=== PATIENT | female | born 1960 | race Caucasian/White ===

== ENCOUNTER → 2017-01-29 | Outpatient (CLI) | payer OTHER ==
[~2017-01-29] MED LIST: LRT5 PO
== END ==
LOC: C.LAB 16:20
DX: Z02.83 Encounter for blood-alcohol and blood-drug test (principal)

== ENCOUNTER 2017-04-13 10:05 | Inpatient (IN) | payer OTHER ==
[~2017-04-13] VITALS: Ht 167.6 cm; Wt 59.7 kg
[2017-04-13] MEDS ORDERED: SODIUM CHLORIDE 0.9% 1000ML 1,000 ML IV STA (10:32)
[2017-04-13] MEDS ORDERED: WATER PILL PO (10:41)
--- NOTE | 2017-04-13 10:51 | DIAGNOSTIC IMAGING REPORT ---
CHEST ONE VIEW PORTABLE CLINICAL HISTORY: Weakness COMPARISON STUDY: 09/22/2007 FINDINGS: There is an old internally fixated left humeral fracture. There are internally fixated bilateral clavicular fractures. There are old left-sided rib fractures. There are multiple right-sided rib fractures which appear subacute. The heart is normal in size. There is no failure. There is no lobar consolidation. There are interstitial left basilar opacities. In the proper clinical setting this could represent a pneumonitis.[ No pneumothorax is visualized. IMPRESSION: 1. Left basilar interstitial opacities, possibly representing an interstitial pneumonitis. Clinical and radiographic follow-up is recommended 2. Subacute right-sided rib fractures. 3. Old left-sided rib fractures. 4. Postsurgical changes involving the clavicles and left humerus. Electronically signed by: Warren Bautista M.D. 04/13/2017 10:50 AM Dictated Date/Time: 04/13/2017 10:48 AM
[2017-04-13 11:42] LABS: PARTIAL THROMBOPLASTIN RATIO 1.1; PROTHROMBIN TIME (PATIENT) 11.2 SECONDS (9.0-12.0)
--- NOTE | 2017-04-13 11:44 | DIAGNOSTIC IMAGING REPORT ---
CT HEAD WITHOUT CONTRAST (CT) CLINICAL HISTORY: Weakness COMPARISON STUDY: No previous studies for comparison. TECHNIQUE: Axial CT of the brain is performed from the vertex to the skull base. IV contrast was not administered for this examination. A dose lowering technique was utilized adhering to the principles of ALARA. CT DOSE: 1074.96 mGy.cm FINDINGS: No intra or extra-axial mass lesions are visualized. There is no CT evidence of acute cortical infarction. There is no evidence of midline shift. There is no acute hemorrhage. No calvarial fractures are visualized. There are mild white matter hypodensities likely on a small vessel basis. There is no evidence of pathologic ventricular dilatation. There is no evidence of acute sinusitis IMPRESSION: No acute intracranial findings Electronically signed by: Warren Bautista M.D. 04/13/2017 11:43 AM Dictated Date/Time: 04/13/2017 11:43 AM
[2017-04-13 12:03] LABS: ALKALINE PHOSPHATASE 108 U/L (45-117); ALT/SGPT 19 U/L (12-78); AST/SGOT 36 U/L (15-37); BLOOD UREA NITROGEN 1 mg/dl (7-18); BUN/CREATININE RATIO 6.2 (10-20); CALCIUM 7.8 mg/dl (8.5-10.1); CARBON DIOXIDE 35 mmol/L (21-32); CHLORIDE 76 mmol/L (98-107); CKMB/CK RATIO 1.9 (0-3.0); CREATININE 0.22 mg/dl (0.60-1.20); GLUCOSE 80 mg/dl (70-99); MAGNESIUM 1.6 mg/dl (1.8-2.4); POTASSIUM 2.1 mmol/L (3.5-5.1); SODIUM 117 mmol/L (136-145)
[2017-04-13 12:25] LABS: HEMATOCRIT 27.3 % (37-47); MEAN CELL VOLUME 90.7 fL (80-100); MEAN CORPUSCULAR HEMOGLOBIN 34.2 pg (25-34); MEAN CORPUSCULAR HGB CONC 37.7 g/dl (32-36); RED BLOOD COUNT 3.01 M/uL (4.2-5.4); WHITE BLOOD COUNT 3.36 K/uL (4.8-10.8)
[2017-04-13 12:25] LABS: URINE APPEARANCE CLEAR (CLEAR); URINE BILIRUBIN NEG (NEG); URINE COLOR YELLOW; URINE EPITHELIAL CELL AUTO 20-30 /lpf (0-5); URINE NITRITE POS (NEG); URINE SPECIFIC GRAVITY 1.005 (1.000-1.030); UROBILINOGEN NEG (NEG)
[2017-04-13 12:26] LABS: MANUAL MICROSCOPIC REQUIRED? NO; REVIEW REQ? NO
[2017-04-13 12:26] LABS: PLATELET COUNT 104 K/uL (130-400)
[2017-04-13 12:27] LABS: BASO % 0.3 %; BASO ABS # 0.01 K/uL (0-0.2); COMPLETE YES; EOS % 0.3 %; IG% 0.6 %; LYMPH % 21.7 %; LYMPH ABS # 0.73 K/uL (1.2-3.4); MONO % 9.8 %; NEUT % 67.3 %; PLT ESTIMATE DECREASED
[2017-04-13] MEDS ORDERED: LEVAQUIN 750MG / 150ML D5W IV ONE (12:45)
[2017-04-13] MEDS ORDERED: POLYETHYLENE (MIRALAX) 17 GM PACK PO PRN (13:00)
[2017-04-13] MEDS ORDERED: ONDANSETRON INJ 2 MG/ML 2 ML VIAL IV PRN (13:00)
[2017-04-13] MEDS ORDERED: LORAZEPAM 0.5 MG TAB PO PRN (13:00)
[2017-04-13] MEDS ORDERED: ALUMINUM/MAGNESIUM/SIMETH (MAALOX MAX) 30 ML UDC PO PRN (13:00)
[2017-04-13] MEDS ORDERED: LORAZEPAM 2 MG/ML 1 ML VIAL IV PRN ×2 (13:00)
--- NOTE | 2017-04-13 13:26 | History and Physical ---
History & Physical Date & Time of Service: Apr 13, 2017 at 13:19 Chief Complaint: Abnormal Labs,Referrred Primary Care Physician: Darian Lopez D.O. History of Present Illness I was called to admit this patient to the hospital due to marked hyponatremia hypokalemia hypomagnesemia mildly elevated TSH possible left-sided pneumonitis and concurrent alcohol abuse The patient presented to the ER after having outpatient blood work and being called and told to report to the nearest hospital she cannot offer much more in the way of the exact details with a told her she is edentulous and slightly lethargic she drinks alcohol but cannot quantify directed mount she last had alcohol 1 day ago. The patient states she's not been eating regularly of late however she most recently fell while taking her daughter to school and after trying to get out of the car. The patient's company by her he cannot provide much in way of health history. The patient states that with her most recent fall she struck the front and back of her head her right arm and her back these areas are mildly tender with ecchymosis on her right anterior forehead right midshaft humerus and around C7-T1 of her back her abdomen is no evidence of bruising Past Medical/Surgical History Surgical Problems: (1) S/P section Status: Resolved Family History Cancer Diabetes mellitus Heart disease Hypertension Kidney disease Lung disease Patient has a family history of hypertension heart disease Social History Smoking Status: Current Every Day Smoker Smokeless Tobacco Use: No Alcohol Use: I suspect this is daily and having Drug Use: none Marital Status: Housing status: lives with family Allergies Coded Allergies: Penicillins (Unverified Allergy, Mild, rash, 04/13/17) Home Medications Scheduled [Water Pill], 1 TAB PO DAILY Review of Systems ROS: Thin cachectic weak and tired No double vision blurry vision No problems with speech or swallowing but is edentulous No palpitations, chest pain or pressure No Wheezing or breathing issues Epigastric and left upper quadrant abdominal pain dull not worsened or improved by food ordered drinking but worse by movement nausea vomiting diarrhea decreased appetite and weight loss No burning urine urine frequency or changes in color Patient has back pain right arm pain No skin rashes or oral lesions Bruising as mentioned in history of present illness Upper back pain but no numbness or loss of strength No changes in memory or confusion although details of her health history is sketchy Physical Exam Vital Signs Date Time Temp Pulse Resp B/P (MAP) Pulse Ox O2 Delivery O2 Flow Rate FiO2 04/13/17 13:00 87 82/45 93 Room Air 04/13/17 12:26 84 85/50 94 Room Air 04/13/17 12:10 94 04/13/17 12:08 88 86/41 96 Room Air 04/13/17 11:50 90 Room Air 04/13/17 10:21 36.5 93 18 92/63 94 Room Air General Appearance: + moderate distress, + thin Head: normocephalic, + evidence of trama Eyes: PERRL, EOMI, + pertinent finding (drainage from bilateral eyes which is purulent) ENT: hearing grossly normal, + pertinent finding (there is redness to her pharynx consistent with her smoking history) Neck: supple, no JVD Respiratory/Chest: chest non-tender, lungs clear, normal breath sounds Cardiovascular: regular rate, rhythm, no murmur Abdomen/GI: normal bowel sounds, soft, + tenderness (epigastrium and left upper quadrant) Back: no CVA tenderness, no muscle spasm, + pertinent finding (bruising around C7) Extremities/Musculoskelatal: no calf tenderness, normal capillary refill Neurologic/Psych: alert, oriented x 3 Diagnostics Laboratory Results Results Past 24 Hours Test 04/13/17 11:00 04/13/17 12:15 Range/Units White Blood Count 3.36 4.8-10.8 K/uL Red Blood Count 3.01 4.2-5.4 M/uL Hemoglobin 10.3 12.0-16.0 g/dL Hematocrit 27.3 37-47 % Mean Corpuscular Volume 90.7 80-100 fL Mean Corpuscular Hemoglobin 34.2 25-34 pg Mean Corpuscular Hemoglobin Concent 37.7 32-36 g/dl Platelet Count 104 130-400 K/uL Neutrophils (%) (Auto) 67.3 % Lymphocytes (%) (Auto) 21.7 % Monocytes (%) (Auto) 9.8 % Eosinophils (%) (Auto) 0.3 % Basophils (%) (Auto) 0.3 % Neutrophils # (Auto) 2.26 1.4-6.5 K/uL Lymphocytes # (Auto) 0.73 1.2-3.4 K/uL Monocytes # (Auto) 0.33 0.11-0.59 K/uL Eosinophils # (Auto) 0.01 0-0.5 K/uL Basophils # (Auto) 0.01 0-0.2 K/uL Immature Granulocyte % (Auto) 0.6 % Immature Granulocyte # (Auto) 0.02 0.00-0.02 K/uL Platelet Estimate DECREASED Red Blood Cell Morphology Unremarkable Prothrombin Time 11.2 9.0-12.0 SECONDS Prothromb Time International Ratio 1.0 0.9-1.1 Activated Partial Thromboplast Time 28.7 21.0-31.0 SECONDS Partial Thromboplastin Ratio 1.1 Sodium Level 117 136-145 mmol/L Potassium Level 2.1 3.5-5.1 mmol/L Chloride Level 76 98-107 mmol/L Carbon Dioxide Level 35 21-32 mmol/L Anion Gap 6.0 3-11 mmol/L Blood Urea Nitrogen 1 7-18 mg/dl Creatinine 0.22 0.60-1.20 mg/dl Est Creatinine Clear Calc Drug Dose 232.6 ml/min Estimated GFR () > 150.0 Estimated GFR (Non- 142.8 BUN/Creatinine Ratio 6.2 10-20 Random Glucose 80 70-99 mg/dl Calcium Level 7.8 8.5-10.1 mg/dl Magnesium Level 1.6 1.8-2.4 mg/dl Total Bilirubin 0.8 0.2-1 mg/dl Direct Bilirubin 0.3 0-0.2 mg/dl Aspartate Amino Transf (AST/SGOT) 36 15-37 U/L Alanine Aminotransferase (ALT/SGPT) 19 12-78 U/L Alkaline Phosphatase 108 45-117 U/L Ammonia < 10.0 11-32 umol/L Total Creatine Kinase 113 26-192 U/L Creatine Kinase MB 2.2 0.5-3.6 ng/ml Creatine Kinase MB Ratio 1.9 0-3.0 Troponin I < 0.015 0-0.045 ng/ml Total Protein 5.9 6.4-8.2 gm/dl Albumin 2.5 3.4-5.0 gm/dl Lipase 90 73-393 U/L Thyroid Stimulating Hormone (TSH) 5.430 0.300-4.500 uIu/ml Urine Color YELLOW Urine Appearance CLEAR CLEAR Urine pH 7.0 4.5-7.5 Urine Specific [place] 1.005 1.000-1.030 Urine Protein NEG NEG Urine Glucose (UA) NEG NEG Urine Ketones NEG NEG Urine Occult Blood NEG NEG Urine Nitrite POS NEG Urine Bilirubin NEG NEG Urine Urobilinogen NEG NEG Urine Leukocyte Esterase LARGE NEG Urine WBC (Auto) 5-10 0-5 /hpf Urine RBC (Auto) 0-4 0-4 /hpf Urine Hyaline Casts (Auto) 0 0-5 /lpf Urine Epithelial Cells (Auto) 20-30 0-5 /lpf Urine Bacteria (Auto) 2+ NEG Microbiology Results 04/13/17 Blood Culture, Received Pending 04/13/17 Blood Culture, Received Pending 04/13/17 Urine Culture, Received Pending Diagnostic Radiology TSH mildly elevated we'll check T4 marketed or joint abnormalities CT head unremarkable Chest x-ray also shows bilateral clavicle repair left humeral repair and old rib fractures pending x-ray of right humerus other (chest x-ray was concern for left-sided pneumonitis) Impression Assessment and Plan 56-year-old female with marked hyponatremia hypokalemia hypomagnesemia concern for alcohol abuse next For the hyponatremia she'll be on a fluid restriction will check urine has him and urine random sodium we'll place her normal saline with potassium infusion nephrology consultation for oversight in repleting her sodium Hypomagnesemia replete this intravenously and monitor daily With the pneumonitis concern for aspiration placement will be changed to clindamycin Bilateral conjunctivitis will use Genoptic Patient was offered the nicotine patch and counseled on tobacco cessation she refused both Right humeral bruise x-rays pending Unknown alcohol abuse when necessary Ativan is currently available if she develops more formal signs of withdrawal we'll institute our withdrawal protocol including Neurontin and scheduled benzodiazepines Abdominal pain could be gastritis she denies melena her hemoglobins 10 we'll institute Zantac DVT prevention will be Lovenox Advanced Directives Existing Advance Directive: No Existing Living Will: No VTE Prophylaxis VTE Risk Assessment Done? Y/N: Yes Risk Level: Moderate Social Service Consult Abuse/Neglect Concerns
[2017-04-13 14:01] VITALS: BP 86/47; PULSE 82; TEMP 36.9; O2SAT 94; Ht 167.6 cm; Wt 59.7 kg
[2017-04-13] MEDS: POTASSIUM CHLORIDE INJ 40 MEQ in SODIUM CHLORIDE 0.9% 1000ML 1,000 ML IV SCH (15:06)
[2017-04-13] MEDS: MAGNESIUM SULFATE 1GM / D5W 1 GM in PREMIXED IN D5W 100 ML IV SCH ×2 (15:06→18:14)
[2017-04-13] MEDS: POTASSIUM CHLORIDE 20 MEQ TABCR PO SCH ×2 (15:07→20:28)
[2017-04-13 15:36] VITALS: BP 82/49; PULSE 90; TEMP 36.8; O2SAT 93
--- NOTE | 2017-04-13 17:56 | EMERGENCY ROOM VISIT NOTE ---
History Report prepared by Miguel: Kelli Casey Under the Supervision of: Dr. Chace Frey M.D. First contact with patient: 10:26 Chief Complaint: REFERRED BY DOCTOR Stated Complaint: ABNORMAL LABS,REFERRRED History of Present Illness The patient is a 56 year old female who presents to the Emergency Room with complaints of a referral by her doctor prior to arrival. The patient reports having abnormal labs with her potassium levels. She states that she has not been feeling well for a year. The patient states that she has been unable to ambulate and get up due to weakness. She also reports having shortness of breath and that headaches. She states that she has been falling about once per day, and states that she sometimes hits her head. Pt denies LOC, fevers, chills , diaphoresis, visual changes, neck pain, chest pain, nausea, vomiting, abdominal pain, back pain, melena, hematochezia, urinary symptoms, numbness, lymphadenopathy, rash, or other complaints. She denies a history of a cholecystectomy and a hysterectomy, but states that she has had a section done before. Source of History: patient Onset: prior to arrival Position: other (global) Quality: other (referral) Associated Symptoms: + headache, + SOB, + weakness (unable to ambulate and get up ), No fevers Review of Systems See HPI for pertinent positives and negatives. A total of ten systems were reviewed and were otherwise negative. Past Medical & Surgical Medical Problems: (1) Hyponatremia Surgical Problems: (1) S/P section Family History Cancer Diabetes mellitus Heart disease Hypertension Kidney disease Lung disease Social History Smoking Status: Current Every Day Smoker Marital Status: in relationship Housing Status: lives with significant other Current/Historical Medications Scheduled [Water Pill], 1 TAB PO DAILY Allergies Coded Allergies: Penicillins (Unverified Allergy, Mild, rash, 04/13/17) Physical Exam Vital Signs Date Time Temp Pulse Resp B/P (MAP) Pulse Ox O2 Delivery O2 Flow Rate FiO2 04/13/17 12:26 84 85/50 94 Room Air 04/13/17 12:10 94 04/13/17 12:08 88 86/41 96 Room Air 04/13/17 11:50 90 Room Air 04/13/17 10:21 36.5 93 18 92/63 94 Room Air Physical Exam GENERAL: Awake, alert, tired-appearing, in no distress HENT: Normocephalic, atraumatic. Scattered bruises on left scalp. Oropharynx unremarkable. EYES: Normal conjunctiva. Sclera non-icteric. NECK: Supple. No nuchal rigidity. FROM. No JVD. RESPIRATORY: Scattered rhonchi. CARDIAC: Regular rate, normal rhythm. Extremities warm and well perfused. Pulses equal. ABDOMEN: Soft, non-distended. No tenderness to palpation. No rebound or guarding. No masses. RECTAL: Deferred. MUSCULOSKELETAL: Chest examination reveals no tenderness. The back is symmetrical on inspection without obvious abnormality. Bruising and abrasion noted over left scapula. There is no CVA tenderness to palpation. No joint edema. LOWER EXTREMITIES: Calves are equal size bilaterally and non-tender. 2+ lower leg edema with chronic venous discoloration. NEURO: Normal sensorium. No sensory or motor deficits noted. SKIN: No rash or jaundice noted. Medical Decision & Procedures ER Provider Diagnostic Interpretation: Radiology results as stated below per my review and radiologist interpretation: CHEST ONE VIEW PORTABLE CLINICAL HISTORY: Weakness COMPARISON STUDY: 09/22/2007 FINDINGS: There is an old internally fixated left humeral fracture. There are internally fixated bilateral clavicular fractures. There are old left-sided rib fractures. There are multiple right-sided rib fractures which appear subacute. The heart is normal in size. There is no failure. There is no lobar consolidation. There are interstitial left basilar opacities. In the proper clinical setting this could represent a pneumonitis.[ No pneumothorax is visualized. IMPRESSION: 1. Left basilar interstitial opacities, possibly representing an interstitial pneumonitis. Clinical and radiographic follow-up is recommended 2. Subacute right-sided rib fractures. 3. Old left-sided rib fractures. 4. Postsurgical changes involving the clavicles and left humerus. Electronically signed by: Warren Bautista M.D. 04/13/2017 10:50 AM Dictated Date/Time: 04/13/2017 10:[address] HEAD WITHOUT CONTRAST (CT) CLINICAL HISTORY: Weakness COMPARISON STUDY: No previous studies for comparison. TECHNIQUE: Axial CT of the brain is performed from the vertex to the skull base. IV contrast was not administered for this examination. A dose lowering technique was utilized adhering to the principles of ALARA. CT DOSE: 1074.96 mGy.cm FINDINGS: No intra or extra-axial mass lesions are visualized. There is no CT evidence of acute cortical infarction. There is no evidence of midline shift. There is no acute hemorrhage. No calvarial fractures are visualized. There are mild white matter hypodensities likely on a small vessel basis. There is no evidence of pathologic ventricular dilatation. There is no evidence of acute sinusitis IMPRESSION: No acute intracranial findings Electronically signed by: Warren Bautista M.D. 04/13/2017 11:43 AM Dictated Date/Time: 04/13/2017 11:43 AM Laboratory Results 04/13/17 11:00 Red Blood Count 3.01, Mean Corpuscular Volume 90.7, Mean Corpuscular Hemoglobin 34.2, Mean Corpuscular Hemoglobin Concent 37.7, Neutrophils (%) (Auto) 67.3, Lymphocytes (%) (Auto) 21.7, Monocytes (%) (Auto) 9.8, Eosinophils (%) (Auto) 0.3, Basophils (%) (Auto) 0.3, Neutrophils # (Auto) 2.26, Lymphocytes # (Auto) 0.73, Monocytes # (Auto) 0.33, Eosinophils # (Auto) 0.01, Basophils # (Auto) 0.01 04/13/17 11:00 Test 04/13/17 11:00 04/13/17 12:15 White Blood Count 3.36 K/uL (4.8-10.8) Red Blood Count 3.01 M/uL (4.2-5.4) Hemoglobin 10.3 g/dL (12.0-16.0) Hematocrit 27.3 % (37-47) Mean Corpuscular Volume 90.7 fL (80-100) Mean Corpuscular Hemoglobin 34.2 pg (25-34) Mean Corpuscular Hemoglobin Concent 37.7 g/dl (32-36) Platelet Count 104 K/uL (130-400) Neutrophils (%) (Auto) 67.3 % Lymphocytes (%) (Auto) 21.7 % Monocytes (%) (Auto) 9.8 % Eosinophils (%) (Auto) 0.3 % Basophils (%) (Auto) 0.3 % Neutrophils # (Auto) 2.26 K/uL (1.4-6.5) Lymphocytes # (Auto) 0.73 K/uL (1.2-3.4) Monocytes # (Auto) 0.33 K/uL (0.11-0.59) Eosinophils # (Auto) 0.01 K/uL (0-0.5) Basophils # (Auto) 0.01 K/uL (0-0.2) Immature Granulocyte % (Auto) 0.6 % Immature Granulocyte # (Auto) 0.02 K/uL (0.00-0.02) Platelet Estimate DECREASED Red Blood Cell Morphology Unremarkable Prothrombin Time 11.2 SECONDS (9.0-12.0) Prothromb Time International Ratio 1.0 (0.9-1.1) Activated Partial Thromboplast Time 28.7 SECONDS (21.0-31.0) Partial Thromboplastin Ratio 1.1 Anion Gap 6.0 mmol/L (3-11) Est Creatinine Clear Calc Drug Dose 232.6 ml/min Estimated GFR () > 150.0 Estimated GFR (Non- 142.8 BUN/Creatinine Ratio 6.2 (10-20) Calcium Level 7.8 mg/dl (8.5-10.1) Magnesium Level 1.6 mg/dl (1.8-2.4) Total Bilirubin 0.8 mg/dl (0.2-1) Direct Bilirubin 0.3 mg/dl (0-0.2) Aspartate Amino Transf (AST/SGOT) 36 U/L (15-37) Alanine Aminotransferase (ALT/SGPT) 19 U/L (12-78) Alkaline Phosphatase 108 U/L (45-117) Ammonia < 10.0 umol/L (11-32) Total Creatine Kinase 113 U/L (26-192) Creatine Kinase MB 2.2 ng/ml (0.5-3.6) Creatine Kinase MB Ratio 1.9 (0-3.0) Troponin I < 0.015 ng/ml (0-0.045) Total Protein 5.9 gm/dl (6.4-8.2) Albumin 2.5 gm/dl (3.4-5.0) Lipase 90 U/L (73-393) Thyroid Stimulating Hormone (TSH) 5.430 uIu/ml (0.300-4.500) Urine Color YELLOW Urine Appearance CLEAR (CLEAR) Urine pH 7.0 (4.5-7.5) Urine Specific [place] 1.005 (1.000-1.030) Urine Protein NEG (NEG) Urine Glucose (UA) NEG (NEG) Urine Ketones NEG (NEG) Urine Occult Blood NEG (NEG) Urine Nitrite POS (NEG) Urine Bilirubin NEG (NEG) Urine Urobilinogen NEG (NEG) Urine Leukocyte Esterase LARGE (NEG) Urine WBC (Auto) 5-10 /hpf (0-5) Urine RBC (Auto) 0-4 /hpf (0-4) Urine Hyaline Casts (Auto) 0 /lpf (0-5) Urine Epithelial Cells (Auto) 20-30 /lpf (0-5) Urine Bacteria (Auto) 2+ (NEG) Laboratory results reviewed by me Medications Administered Medications (Trade) Dose Ordered Sig/Kevin Route Start Time Stop Time Status Last Admin Dose Admin Sodium Chloride 1,000 ml @ 125 mls/hr Q8H STAT IV 04/13/17 10:32 04/13/17 18:31 04/13/17 10:32 125 MLS/HR Levofloxacin (Levaquin / D5W) 750 mg NOW ONCE IV 04/13/17 12:45 04/13/17 12:46 DC 04/13/17 13:05 750 MG ECG Indication: weakness Rate (beats per minute): 82 Rhythm: sinus rhythm Findings: Q waves (Anteriorseptal, inferior), other (poor baseline data) ED Course 1030: The patient was evaluated in room B3B. A complete history and physical exam was performed. 1032: Ordered Sodium Chloride 1,000 ml @ 125 mls/hr IV. 1209: Discussed the patient's case with Dr. Coe. The patient will be evaluated for further treatment and disposition. 1230: I updated the patient on her results and broken ribs. 1245: Ordered Levofloxacin 750 mg IV. 1300: Upon reexamination, the patient was resting. I discussed the test results and treatment plan with her. The patient will be evaluated for further management. Medical Decision Triage Nursing notes reviewed. The patient's presentation and history were concerning for weakness, falls, and possible electrolyte abnormalities. Etiologies such as metabolic, infection, hypo/hyperglycemia, electrolyte abnormalities, cardiac sources, intracerebral event, toxicologic, neurologic, as well as others were entertained. The patient was evaluated. The abdomen were obtained. Imaging was ordered. The patient was found to have significant hyponatremia. Gentle fluid hydration was done. The patient had old appearing rib fractures and subacute fractures on chest x-ray with mild pneumonitis. She does have a cough. Urinalysis was concerning for infection. The patient was given IV Levaquin. Head CT did not reveal any acute findings. The patient will need further management in the hospital. Consultation is made with internal medicine. The patient was evaluated in the Emergency Room for further treatment. Medication Reconcilliation Current Medication List: was personally reviewed by me Blood Pressure Screening Patient's blood pressure: Low blood pressure Consults Time Called: 1209 Consulting Physician: Dr. [place] Returned Call: 1209 Discussed the patient's case. The patient will be evaluated for further treatment and disposition. Impression Primary Impression: Hypernatremia Additional Impressions: UTI (urinary tract infection) Pneumonitis Rib fracture Scribe Attestation The scribe's documentation has been prepared under my direction and personally reviewed by me in its entirety. I confirm that the note above accurately reflects all work, treatment, procedures, and medical decision making performed by me. Departure Information Dispostion Being Evaluated By Hospitalist Referrals No Doctor, Assigned (PCP) Patient Instructions My [facility] Health Problem Qualifiers
[2017-04-13] MEDS: CLINDAMYCIN HCL 150 MG CAP PO SCH (18:16)
[2017-04-13] MEDS: ACETAMINOPHEN 325 MG TAB PO PRN (18:19)
--- NOTE | 2017-04-13 18:25 | DIAGNOSTIC IMAGING REPORT ---
RIGHT HUMERUS 2 VIEWS HISTORY: Right arm pain after fall COMPARISON: None. FINDINGS: There is no acute fracture or dislocation. Soft tissues are unremarkable. Prior internal fixation of a right clavicle fracture with a cortical plate and screws. The bones are osteopenic. There is a healing fracture of the distal right clavicle. Deformity of the right lateral mid to lower ribs favor healing/healed fractures. IMPRESSION: 1. No acute fracture or dislocation within the right humerus. 2. Healing distal right clavicle fracture. 3. Healing/healed right mid to lower rib fractures. Electronically signed by: Gerald Cee M.D. 04/13/2017 6:24 PM Dictated Date/Time: 04/13/2017 6:21 PM
[2017-04-13 19:39] VITALS: BP 84/51; PULSE 77; TEMP 36.7; O2SAT 92
[2017-04-13] MEDS ORDERED: COUGH DROP (SUGAR FREE) LOZ 24 LOZ/1 BOX ONE (19:50)
[2017-04-13] MEDS: GENTAMICIN SULFATE 0.3% OP SOLN 5 ML BTL OP SCH (20:28)
[2017-04-13] MEDS: ENOXAPARIN 40 MG/0.4 ML SYR SC SCH (20:29)
[2017-04-13] MEDS: RANITIDINE HCL 150 MG TAB PO SCH (20:29)
[2017-04-13] MEDS ORDERED: PNEUMOCOCCAL ADMINISTRATION CHARGE ONE (20:45)
[2017-04-13] MEDS ORDERED: PNEUMOCOCCAL POLYSACCHARIDES 25 MCG/0.5 ML VIAL/SYR IM. ONE (20:45)
[2017-04-13 23:48] VITALS: BP 90/51; PULSE 75; TEMP 36.8; O2SAT 96
[2017-04-14] VITALS (8 sets, daily range): BP systolic 78–94; BP diastolic 38–62; PULSE 73–86; TEMP 36.5–37; O2SAT 94–100
[2017-04-14] MEDS: CLINDAMYCIN HCL 150 MG CAP PO SCH ×5 (00:20→23:40)
[2017-04-14] MEDS: POTASSIUM CHLORIDE INJ 40 MEQ in SODIUM CHLORIDE 0.9% 1000ML 1,000 ML IV SCH (00:21)
[2017-04-14 07:31] LABS: HEMATOCRIT 24.1 % (37-47); MEAN CELL VOLUME 94.5 fL (80-100); MEAN CORPUSCULAR HEMOGLOBIN 34.9 pg (25-34); MEAN CORPUSCULAR HGB CONC 36.9 g/dl (32-36); RED BLOOD COUNT 2.55 M/uL (4.2-5.4); WHITE BLOOD COUNT 1.77 K/uL (4.8-10.8)
[2017-04-14] MEDS: POTASSIUM CHLORIDE 20 MEQ TABCR PO SCH (07:35)
[2017-04-14] MEDS: RANITIDINE HCL 150 MG TAB PO SCH ×2 (07:39→20:32)
[2017-04-14] MEDS: GENTAMICIN SULFATE 0.3% OP SOLN 5 ML BTL OP SCH ×3 (07:39→20:33)
[2017-04-14 07:55] LABS: MEAN PLATELET VOLUME 9.7 fL (7.4-10.4); PLATELET COUNT 92 K/uL (130-400)
[2017-04-14 07:56] LABS: PLT ESTIMATE DECREASED
[2017-04-14 07:59] LABS: BLOOD UREA NITROGEN 1 mg/dl (7-18); BUN/CREATININE RATIO 4.5 (10-20); CALCIUM 7.8 mg/dl (8.5-10.1); CARBON DIOXIDE 32 mmol/L (21-32); CHLORIDE 90 mmol/L (98-107); CREATININE 0.24 mg/dl (0.60-1.20); GLUCOSE 79 mg/dl (70-99); MAGNESIUM 2.1 mg/dl (1.8-2.4); POTASSIUM 2.7 mmol/L (3.5-5.1); SODIUM 128 mmol/L (136-145)
[2017-04-14] MEDS ORDERED: POTASSIUM CHLORIDE INJ 40 MEQ in SODIUM CHLORIDE 0.9% 1000ML 1,000 ML IV SCH (09:00)
[2017-04-14] MEDS ORDERED: POTASSIUM CHLORIDE 20 MEQ TABCR PO ONE (09:15)
[2017-04-14] MEDS: CEFTRIAXONE SOD INJ 1 GM in DEXTROSE 5% ADD-VANTAGE 50ML 50 ML IV SCH (09:57)
[2017-04-14] MEDS: MULTIVITAMIN TAB PO SCH (09:58)
[2017-04-14] MEDS: THIAMINE HCL 100 MG TAB PO SCH (09:58)
[2017-04-14] MEDS ORDERED: POTASSIUM CHLORIDE 20 MEQ TABCR PO STA ×2 (10:10→15:06)
[2017-04-14 11:15] LABS: BLOOD UREA NITROGEN 1 mg/dl (7-18); BUN/CREATININE RATIO 4.3 (10-20); CALCIUM 7.7 mg/dl (8.5-10.1); CARBON DIOXIDE 33 mmol/L (21-32); CHLORIDE 92 mmol/L (98-107); CREATININE 0.29 mg/dl (0.60-1.20); GLUCOSE 88 mg/dl (70-99); SODIUM 129 mmol/L (136-145)
[2017-04-14] MEDS ORDERED: POTASSIUM CHLORIDE INJ 40 MEQ in SODIUM CHLORIDE 0.45% 1000ML 1,000 ML IV SCH (11:30)
--- NOTE | 2017-04-14 12:10 | Nephrology Consultation ---
Nephrology Consultation Date & Providers Date of Consultation: Apr 14, 2017. Primary Care Provider: Darian Lopez D.O. Referring Provider: Reason for Consultation Evaluation and management for the hypokalemia and hyponatremia. History of Present Illness Lydia is a 56-year-old female admitted to the hospital with electrolyte abnormality. Nephrologic consult was requested to manage hyponatremia and hypokalemia. Electronic medical records are reviewed in detail during patient' s visit. Patient is a poor historian and most of the information was gathered from electronic medical record review. Lydia was admitted to the hospital as she was recommended by her primary care physician go come to the nearest emergency room due to electrolyte abnormality from routine lab. On admission her serum sodium was 117 and potassium was 2.1. Urine osmolality was low at 127. Magnesium was low, which improved after replacement. Renal function was normal. She was hypotensive. She reports being sick for last couple of weeks, appetite has been poor and overall not feeling well. She had multiple fall at home. On admission she was found to have old rib fracture. CT head was negative for any intra-abdominal pathology. She was continued on IV normal saline with potassium supplement and her serum sodium increased to 128 this morning and potassium was 2.8. Urinalysis was positive for urinary tract infection and started on ceftriaxone IV. Currently she continues to feel poorly, no specific symptoms, however feels overall better than how she has been last few weeks. She still seems to have some slurring of speech but no cognitive impairment or confusion. Detail information about her past medical history is not available however the does not seemed to have history of hypertension or diabetes. Her TSH in the hospital was normal. There was report of being on diuretics at home however detailed information about the class of medication or dose was not available. No report of NSAIDs, SSRI use. Allergies Coded Allergies: Penicillins (Unverified Allergy, Mild, rash, 04/13/17) Inpatient Medications Current Inpatient Medications Medications (Trade) Dose Ordered Sig/Kevin Route Start Time Stop Time Status Last Admin Dose Admin Enoxaparin Sodium (Lovenox Inj) 40 mg Q24H SC 04/13/17 21:00 05/13/17 20:59 04/13/17 20:29 40 MG Acetaminophen (Tylenol Tab) 650 mg Q4H PRN PO 04/13/17 13:00 05/13/17 12:59 04/13/17 18:19 650 MG Al Hydrox/Mg Hydrox/Simethicone (Maalox Max Susp) 15 ml Q4H PRN PO 04/13/17 13:00 05/13/17 12:59 Ondansetron HCl (Zofran Inj) 4 mg Q6H PRN IV 04/13/17 13:00 05/13/17 12:59 Polyethylene (Miralax Powder Packet) 17 gm DAILY PRN PO 04/13/17 13:00 05/13/17 12:59 Lorazepam (Ativan Inj) 1 mg Q4H PRN IV 04/13/17 13:00 05/13/17 12:59 Lorazepam (Ativan Inj) 0.5 mg Q4H PRN IV 04/13/17 13:00 05/13/17 12:59 Lorazepam (Ativan Tab) 0.5 mg Q6 PRN PO 04/13/17 13:00 05/13/17 12:59 Clindamycin HCl (Cleocin Cap) 150 mg Q6 PO 04/13/17 18:00 04/20/17 17:59 04/14/17 06:00 150 MG Ranitidine HCl (zANTac TAB) 150 mg BID PO 04/13/17 21:00 05/13/17 20:59 04/14/17 07:39 150 MG Gentamicin Sulfate (Gentamicin 0.3% Oph Soln) 2 drops TID OP 04/13/17 21:00 04/16/17 20:59 04/14/17 07:39 2 DROPS Ceftriaxone Sodium 1 gm/ Dextrose 50 ml @ 100 mls/hr Q24H IV 04/14/17 09:00 04/19/17 08:59 04/14/17 09:57 100 MLS/HR Folic Acid (Folvite Tab) 1 mg QAM PO 04/14/17 09:00 05/14/17 08:59 04/14/17 09:59 1 MG Thiamine HCl (Vitamin B-1 Tab) 100 mg QAM PO 04/14/17 09:00 05/14/17 08:59 04/14/17 09:58 100 MG Multivitamins (Multivitamin Tab) 1 tab QAM PO 04/14/17 09:00 05/14/17 08:59 11/20/17 09:58 1 TAB Potassium Chloride 40 meq/ Sodium Chloride 1,020 ml @ 50 mls/hr [id number] IV 04/14/17 11:30 05/14/17 11:29 Family History Cancer Diabetes mellitus Heart disease Hypertension Kidney disease Lung disease Social History Smoking Status: Current Every Day Smoker Smokeless Tobacco Use: No Alcohol Use: I suspect this is daily and having Drug Use: none Marital Status: in relationship Housing Status: lives with family Review of Systems A complete review of systems was performed. Pertinent positives are noted above. All other systems are negative. Physical Exam Date Time Temp Pulse Resp B/P (MAP) Pulse Ox O2 Delivery O2 Flow Rate FiO2 04/14/17 11:48 36.7 77 20 89/59 (69) 94 2.0 04/14/17 08:07 36.8 73 18 78/38 (51) 95 2.0 89/58 (68) 04/14/17 04:00 Room Air 04/14/17 03:30 37.0 77 19 88/47 (61) 94 Nasal Cannula 2.0 04/14/17 00:01 Room Air 04/13/17 23:48 36.8 75 18 90/51 (64) 96 Room Air 04/13/17 20:00 Room Air 04/13/17 19:39 36.7 77 20 84/51 (62) 92 Room Air 04/13/17 15:36 36.8 90 22 82/49 (60) 93 Room Air 04/13/17 14:01 36.9 82 18 86/47 94 Room Air 04/13/17 13:49 102 80/43 93 04/13/17 13:00 87 82/45 93 Room Air 04/13/17 12:26 84 85/50 94 Room Air 04/13/17 12:10 94 04/13/17 12:08 88 86/41 96 Room Air 04/13/17 11:50 90 Room Air GENERAL: Middle-aged female, AAA x 3, ill -appearing, seems to be in mild distress HEENT: Atraumatic, normocephalic. NECK: Supple, no JVD, no carotid bruit appreciated. ENT: No sinus tenderness MOUTH and THROAT: Moist oral mucosa, no oral ulcer or pharyngeal erythema RESPIRATORY: Normal breathing efforts, no accessory muscle use, clear to auscultation bilaterally, no wheezes or rales. CARDIOVASCULAR: S1, S2 normal, rate rhythm regular. ABDOMEN: Soft, nontender, positive bowel sound. MUSCULOSKELETAL: No CVA tenderness. No joint swelling, erythema or tenderness. Normal range of motion. SKIN: No skin rash EXTREMITY: No lower extremity edema NEURO: No gross focal neurological deficit PSYCHIATRY: Normal mood and judgment Laboratory Results Last 24 Hours Test 04/13/17 12:15 04/13/17 21:05 04/14/17 07:02 04/14/17 10:38 Urine Color YELLOW Urine Appearance CLEAR Urine pH 7.0 Urine Specific [place] 1.005 Urine Protein NEG Urine Glucose (UA) NEG Urine Ketones NEG Urine Occult Blood NEG Urine Nitrite POS Urine Bilirubin NEG Urine Urobilinogen NEG Urine Leukocyte Esterase LARGE Urine WBC (Auto) 5-10 /hpf Urine RBC (Auto) 0-4 /hpf Urine Hyaline Casts (Auto) 0 /lpf Urine Epithelial Cells (Auto) 20-30 /lpf Urine Bacteria (Auto) 2+ Urine Osmolality 127 mOms/kg Urine Random Sodium 11 mEq/L White Blood Count 1.77 K/uL Red Blood Count 2.55 M/uL Hemoglobin 8.9 g/dL Hematocrit 24.1 % Mean Corpuscular Volume 94.5 fL Mean Corpuscular Hemoglobin 34.9 pg Mean Corpuscular Hemoglobin Concent 36.9 g/dl RDW Standard Deviation 43.9 fL RDW Coefficient of Variation 12.7 % Platelet Count 92 K/uL Mean Platelet Volume 9.7 fL Platelet Estimate DECREASED Sodium Level 128 mmol/L 129 mmol/L Potassium Level 2.7 mmol/L 3.0 mmol/L Chloride Level 90 mmol/L 92 mmol/L Carbon Dioxide Level 32 mmol/L 33 mmol/L Anion Gap 6.0 mmol/L 4.0 mmol/L Blood Urea Nitrogen 1 mg/dl 1 mg/dl Creatinine 0.24 mg/dl 0.29 mg/dl Est Creatinine Clear Calc Drug Dose 226.6 ml/min 187.5 ml/min Estimated GFR () > 150.0 > 150.0 Estimated GFR (Non- 138.7 130.4 BUN/Creatinine Ratio 4.5 4.3 Random Glucose 79 mg/dl 88 mg/dl Calcium Level 7.8 mg/dl 7.7 mg/dl Magnesium Level 2.1 mg/dl Free Thyroxine 1.10 ng/dl Test 04/14/17 11:45 Impression (1) Hypokalemia (2) Hypomagnesemia (3) Hypotension (4) Hyponatremia (5) Rib fracture (6) Anemia (7) UTI (urinary tract infection) 56-year-old female with significant electrolyte abnormality including hyponatremia, hypomagnesemia and hypokalemia in the setting of overall not feeling well, poor p.o. intake for few weeks, recurrent fall at home and questionable history use of diuretics at home. No history of hypertension, diabetes or chronic kidney disease. On admission serum sodium was 117, potassium was 2.1 and magnesium was 1.6, started on IV normal saline, received potassium and magnesium supplement. Sodium improved to 129 this morning, potassium 3.0, magnesium normalized. Unclear etiology for this significant electrolyte abnormality, could be combination volume depletion, poor p.o. intake, hypotension, pain with fall and rib fracture as well as diuretics use. Recommendations --Goal for serum sodium but this afternoon should be less than 125 --as serum sodium already 129, change fluid to half normal saline --repeat serum sodium in 2 and urine osmolality in hours and if serum sodium continues to go up may need to start on D5W --goal for serum sodium in next 24 hours less than 131 --focus on correcting potassium --encourage p.o. intake, discontinue fluid restriction, encourage high-protein diet --avoid thiazide diuretics, NSAIDs --monitor serum sodium Q 8 hours --iron study, B12, folic acid Thank you for allowing me to participate in your patient's care. It was a pleasure to see Lydia
--- NOTE | 2017-04-14 12:50 | Medical Student: [facility] ---
Med Student Progress Note Date of Service Apr 14, 2017. Subjective Pt evaluation today including: conversation w/ patient, physical exam, chart review, lab review, review of studies, review of inpatient medication list Voiding: no voiding problems 56 year old female with weakness, fatigue and falls with abnormal outpatient labs. She is found to be hyponatremic, hypokalemic, and hypomagnesium. Replacement therapy and fluid restriction have been started with improvement of labs. Sodium has risen from 117 to 129 in 24 hours. The abnormalities seem to be stemming from excessive water intake over the last year accompanied by malnutrition and alcohol use. She reports drinking 3 beers twice a week. She was also found to have a UTI on U/A. Review of Systems Constitutional: + fever (frequent fevers), + weight loss (160 lbs in the last year.), + weakness, + fatigue Respiratory: + shortness of breath, No cough Cardiac: No chest pain Abdomen: No pain, No nausea, No vomiting Female : No dysuria Neurologic: + weakness, + balance problems, No memory loss, No paralysis, No numbness/tingling Objective Vital Signs Date Time Temp Pulse Resp B/P (MAP) Pulse Ox O2 Delivery O2 Flow Rate FiO2 04/14/17 11:48 36.7 77 20 89/59 (69) 94 2.0 04/14/17 08:07 36.8 73 18 78/38 (51) 95 2.0 89/58 (68) 04/14/17 04:00 Room Air 04/14/17 03:30 37.0 77 19 88/47 (61) 94 Nasal Cannula 2.0 04/14/17 00:01 Room Air 04/13/17 23:48 36.8 75 18 90/51 (64) 96 Room Air 04/13/17 20:00 Room Air 04/13/17 19:39 36.7 77 20 84/51 (62) 92 Room Air 04/13/17 15:36 36.8 90 22 82/49 (60) 93 Room Air 04/13/17 14:01 36.9 82 18 86/47 94 Room Air 04/13/17 13:49 102 80/43 93 04/13/17 13:00 87 82/45 93 Room Air 04/13/17 12:26 84 85/50 94 Room Air Physical Exam General Appearance: no apparent distress, + cachetic, + thin Eyes: bilateral eyes normal inspection ENT: normal ENT inspection Neck: supple, no adenopathy Respiratory/Chest: chest non-tender, lungs clear, normal breath sounds, no respiratory distress, no accessory muscle use Cardiovascular: regular rate, rhythm, no edema, no murmur Abdomen: normal bowel sounds, non tender, soft, no organomegaly Extremities: normal range of motion, non-tender, normal inspection, no pedal edema, no calf tenderness Neurologic/Psychiatric: car porter II-XII nml as tested, alert, oriented x 3, + motor weakness (globally), + depressed affect Skin: normal color, warm/dry Laboratory Results Last 24 Hours Test 04/13/17 21:05 04/14/17 07:02 04/14/17 10:38 04/14/17 11:45 Urine Osmolality 127 mOms/kg Urine Random Sodium 11 mEq/L White Blood Count 1.77 K/uL Red Blood Count 2.55 M/uL Hemoglobin 8.9 g/dL Hematocrit 24.1 % Mean Corpuscular Volume 94.5 fL Mean Corpuscular Hemoglobin 34.9 pg Mean Corpuscular Hemoglobin Concent 36.9 g/dl RDW Standard Deviation 43.9 fL RDW Coefficient of Variation 12.7 % Platelet Count 92 K/uL Mean Platelet Volume 9.7 fL Platelet Estimate DECREASED Sodium Level 128 mmol/L 129 mmol/L Potassium Level 2.7 mmol/L 3.0 mmol/L Chloride Level 90 mmol/L 92 mmol/L Carbon Dioxide Level 32 mmol/L 33 mmol/L Anion Gap 6.0 mmol/L 4.0 mmol/L Blood Urea Nitrogen 1 mg/dl 1 mg/dl Creatinine 0.24 mg/dl 0.29 mg/dl Est Creatinine Clear Calc Drug Dose 226.6 ml/min 187.5 ml/min Estimated GFR () > 150.0 > 150.0 Estimated GFR (Non- 138.7 130.4 BUN/Creatinine Ratio 4.5 4.3 Random Glucose 79 mg/dl 88 mg/dl Calcium Level 7.8 mg/dl 7.7 mg/dl Magnesium Level 2.1 mg/dl Free Thyroxine 1.10 ng/dl Transferrin % Saturation % Test 04/14/17 12:06 Medications Current Inpatient Medications Medications (Trade) Dose Ordered Sig/Kevin Route Start Time Stop Time Status Last Admin Dose Admin Enoxaparin Sodium (Lovenox Inj) 40 mg Q24H SC 04/13/17 21:00 05/13/17 20:59 04/13/17 20:29 40 MG Acetaminophen (Tylenol Tab) 650 mg Q4H PRN PO 04/13/17 13:00 05/13/17 12:59 04/13/17 18:19 650 MG Al Hydrox/Mg Hydrox/Simethicone (Maalox Max Susp) 15 ml Q4H PRN PO 04/13/17 13:00 05/13/17 12:59 Ondansetron HCl (Zofran Inj) 4 mg Q6H PRN IV 04/13/17 13:00 05/13/17 12:59 Polyethylene (Miralax Powder Packet) 17 gm DAILY PRN PO 04/13/17 13:00 05/13/17 12:59 Lorazepam (Ativan Inj) 1 mg Q4H PRN IV 04/13/17 13:00 05/13/17 12:59 Lorazepam (Ativan Inj) 0.5 mg Q4H PRN IV 04/13/17 13:00 05/13/17 12:59 Lorazepam (Ativan Tab) 0.5 mg Q6 PRN PO 04/13/17 13:00 05/13/17 12:59 Clindamycin HCl (Cleocin Cap) 150 mg Q6 PO 04/13/17 18:00 04/20/17 17:59 04/14/17 12:01 150 MG Ranitidine HCl (zANTac TAB) 150 mg BID PO 04/13/17 21:00 05/13/17 20:59 04/14/17 07:39 150 MG Gentamicin Sulfate (Gentamicin 0.3% Oph Soln) 2 drops TID OP 04/13/17 21:00 04/16/17 20:59 04/14/17 07:39 2 DROPS Ceftriaxone Sodium 1 gm/ Dextrose 50 ml @ 100 mls/hr Q24H IV 04/14/17 09:00 04/19/17 08:59 04/14/17 09:57 100 MLS/HR Folic Acid (Folvite Tab) 1 mg QAM PO 04/14/17 09:00 05/14/17 08:59 04/14/17 09:59 1 MG Thiamine HCl (Vitamin B-1 Tab) 100 mg QAM PO 04/14/17 09:00 05/14/17 08:59 04/14/17 09:58 100 MG Multivitamins (Multivitamin Tab) 1 tab QAM PO 04/14/17 09:00 05/14/17 08:59 04/14/17 09:58 1 TAB Potassium Chloride 40 meq/ Sodium Chloride 1,020 ml @ 50 mls/hr [id number] IV 04/14/17 11:30 05/14/17 11:29 04/14/17 11:59 50 MLS/HR Assessment and Plan Assessment and Plan: Problem List: Hyponatremia Hypokalemia Hypomagnesium Malnutrition UTI Rib fractures Alcohol misuse Hypotension Assessment: 56 year old female appearing older than her stated age presenting with weakness and falls over the last year and abnormal labs outpatient. She has had a weight loss of over 150 lbs in the last year due to malnutrition. She claims she does not desire food. She attempts to replace her hunger by drinking large amounts of water, over 1 gallon per day. Found to have UTI on U/A. Plan: 1. Weakness: likely due to elcetrolye abnormalities. Weakness is still present, and she does not feel as though she is ablt to walk. Will consult PT. Should improve with electrolyte repletion. 2. Hyponatremia: sodium has risen to 12 mEq in 24 hours which puts her at risk for central pontine myelenosis. Will switch to 1/2 normal saline. Goal should be 4-6 mEq increase per 24 hours. Cause of hyponatremia likely due to excessive water consumption supported by U/A findings of low urine osmolality with normal urine sodium. Monitor BMP q4hrs 3. Hypokalemia: improving with repletion from 2.1 to 3 mEq. Continue to replete until in normal range. Be cautious of refeeding syndrome when she begins to eat again. 4. Hypomagnesium: improving with repletion. 5. Malnutrition: given multivitamins. Consult homebirth midwife and psychiatry. 6. Hypotension: likely due to low sodium, should improve with correction. Likely factoring in to symptoms of weakness, dizziness, and headaches. 7. Subacute/chronic fractures: likely from falls related to symptoms, but domestic abuse should be considered. 8. Tobacco use: christian counselor on tobacco cessation. 9. Alcohol misuse: Monitor for withdraw symptoms. [employer] on cessation. 10. UTI: seen on U/A, given clindamycin PO, and ceftriaxone IV. Disposition: Continue slow correction of sodium. With monitoring for signs of cerebral injury from overcorrection. Begin nutritional repletion, but look for signs of refeeding syndrome. Monitor for alcohol withdraw signs. Patient will be discharged home following appropriate correction of electrolyte abnormalities and improvement in weakness. Continued [facility] stay due to: ambulation difficulties, multiple IV medications needed (Electrolye abnormalities), other Discharge planning: home
[2017-04-14 12:51] LABS: BUN/CREATININE RATIO 4.7 (10-20); CREATININE 0.3 mg/dl (0.60-1.20); MAGNESIUM 2.2 mg/dl (1.8-2.4); POTASSIUM 3.3 mmol/L (3.5-5.1)
[2017-04-14 12:55] LABS: FERRITIN 234.7 ng/ml (8.0-388.0)
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
[2017-04-14] MEDS ORDERED: HYDR25TA4 PO (16:15)
[2017-04-14] MEDS: ENOXAPARIN 40 MG/0.4 ML SYR SC SCH (20:33)
[2017-04-14 21:40] LABS: BUN/CREATININE RATIO 6.5 (10-20); CALCIUM 7.5 mg/dl (8.5-10.1); CREATININE 0.58 mg/dl (0.60-1.20); POTASSIUM 4.2 mmol/L (3.5-5.1)
[2017-04-15] VITALS (8 sets, daily range): BP systolic 88–106; BP diastolic 49–68; PULSE 75–96; TEMP 36.8–37.1; O2SAT 94–99
[2017-04-15 05:58] LABS: HEMATOCRIT 25.1 % (37-47); MEAN CELL VOLUME 98.4 fL (80-100); MEAN CORPUSCULAR HEMOGLOBIN 34.5 pg (25-34); MEAN CORPUSCULAR HGB CONC 35.1 g/dl (32-36); MEAN PLATELET VOLUME 8.8 fL (7.4-10.4); PLATELET COUNT 108 K/uL (130-400); RED BLOOD COUNT 2.55 M/uL (4.2-5.4)
[2017-04-15 06:24] LABS: BLOOD UREA NITROGEN 2 mg/dl (7-18); BUN/CREATININE RATIO 6.9 (10-20); CALCIUM 7.7 mg/dl (8.5-10.1); CARBON DIOXIDE 27 mmol/L (21-32); CHLORIDE 97 mmol/L (98-107); CREATININE 0.29 mg/dl (0.60-1.20); GLUCOSE 86 mg/dl (70-99); POTASSIUM 4.2 mmol/L (3.5-5.1); SODIUM 129 mmol/L (136-145)
[2017-04-15] MEDS ORDERED: POTASSIUM CHLORIDE INJ 40 MEQ in SODIUM CHLORIDE 0.45% 1000ML 1,000 ML IV SCH (06:30)
[2017-04-15 06:46] LABS: BASO % 0.3 %; BASO ABS # 0.01 K/uL (0-0.2); COMPLETE YES; LARGE PLATELETS 1+; LYMPH % 50.7 %; LYMPH ABS # 1.52 K/uL (1.2-3.4); MONO % 10.3 %; NEUT % 37.7 %
[2017-04-15] MEDS: CLINDAMYCIN HCL 150 MG CAP PO SCH ×4 (06:54→23:49)
[2017-04-15] MEDS ORDERED: COSYNTROPIN IV ONE (08:00)
[2017-04-15] MEDS: BOOST VANILLA PO SCH ×6 (08:00→21:23)
[2017-04-15] MEDS ORDERED: COSYNTROPIN INJ 1 MCG in SYRINGE 0 ML IV SCH (08:00)
[2017-04-15] MEDS: MULTIVITAMIN TAB PO SCH (08:23)
[2017-04-15] MEDS: THIAMINE HCL 100 MG TAB PO SCH (08:23)
[2017-04-15] MEDS: RANITIDINE HCL 150 MG TAB PO SCH ×2 (08:23→21:21)
[2017-04-15] MEDS: CEFTRIAXONE SOD INJ 1 GM in DEXTROSE 5% ADD-VANTAGE 50ML 50 ML IV SCH (08:24)
[2017-04-15] MEDS: GENTAMICIN SULFATE 0.3% OP SOLN 5 ML BTL OP SCH ×3 (08:24→21:20)
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
[2017-04-15] MEDS: CEPHALEXIN MONOHYDRATE 500 MG CAP PO SCH ×2 (09:44→21:20)
--- NOTE | 2017-04-15 10:26 | Nephrology Progress Note ---
Nephrology Progress Note Date of Service Apr 15, 2017. Chief Complaint F/U for the hypokalemia and hyponatremia. Ashley Freeman was seen and examined in her room this morning. She denies any shortness of breath chest, chest pain, difficulty in speech, headache or confusion. Has been persistently hypotensive but remained asymptomatic. Serum sodium has been stable at 129 to 130. Potassium normalized. Review of Systems A complete review of systems was performed. Pertinent positives are noted above. All other systems are negative. Vital Signs Last 8 Hrs Date Time Temp Pulse Resp B/P (MAP) Pulse Ox O2 Delivery O2 Flow Rate FiO2 04/15/17 08:00 Room Air 04/15/17 07:53 36.8 80 16 88/56 (67) 94 Room Air 04/15/17 07:28 88 96/62 (73) 04/15/17 05:05 37.1 83 18 95/55 (68) 95 Room Air 04/15/17 04:00 Room Air Last Recorded Weight Weight (Kilograms): 57.700 Physical Exam GENERAL: Middle-aged female , AAA x 3, ill-appearing, not in any distress. NECK: Supple, no JVD. RESPIRATORY: Normal breathing efforts, no accessory muscle use, clear to auscultation bilaterally, no wheezes or rales. CARDIOVASCULAR: S1, S2 normal, rate rhythm regular. EXTREMITY: No lower extremity edema NEURO: speech fluent. PSYCHIATRY: Normal mood and judgment Family History Cancer Diabetes mellitus Heart disease Hypertension Kidney disease Lung disease Social History Smokeless Tobacco Use: No Alcohol Use: I suspect this is daily and having Drug Use: none Marital Status: in relationship Housing Status: lives with family Laboratory Results Past 24 Hours 04/15/17 05:43 Red Blood Count 2.55, Mean Corpuscular Volume 98.4, Mean Corpuscular Hemoglobin 34.5, Mean Corpuscular Hemoglobin Concent 35.1, Mean Platelet Volume 8.8, Neutrophils (%) (Auto) 37.7, Lymphocytes (%) (Auto) 50.7, Monocytes (%) (Auto) 10.3, Eosinophils (%) (Auto) 1.0, Basophils (%) (Auto) 0.3, Neutrophils # (Auto ) 1.13, Lymphocytes # (Auto) 1.52, Monocytes # (Auto) 0.31, Eosinophils # (Auto ) 0.03, Basophils # (Auto) 0.01 04/14/17 10:38 04/14/17 11:45 04/14/17 20:24 04/15/17 05:43 Test 04/14/17 10:38 04/14/17 11:45 04/14/17 13:07 04/14/17 19:45 Anion Gap 4.0 mmol/L (3-11) 7.0 mmol/L (3-11) Est Creatinine Clear Calc Drug Dose 187.5 ml/min 181.3 ml/min Estimated GFR () > 150.0 149.4 Estimated GFR (Non- 130.4 128.9 BUN/Creatinine Ratio 4.3 (10-20) 4.7 (10-20) Calcium Level 7.7 mg/dl (8.5-10.1) 8.0 mg/dl (8.5-10.1) Magnesium Level 2.2 mg/dl (1.8-2.4) Iron Level 37 mcg/dl (35-150) Total Iron Binding Capacity 133 mcg/dl (250-450) Transferrin 103 mg/dl (200-360) Transferrin % Saturation 25 % (15-50) Ferritin 234.7 ng/ml (8.0-388.0) Vitamin B12 Level 408 pg/mL (211-911) Folate 15.11 ng/mL (>5.38) Random Cortisol 4.55 mcg/dl Urine Osmolality 411 mOms/kg (500-800) Test 04/14/17 20:24 04/15/17 05:43 04/15/17 08:13 Anion Gap 5.0 mmol/L (3-11) 5.0 mmol/L (3-11) Est Creatinine Clear Calc Drug Dose 93.8 ml/min 187.5 ml/min Estimated GFR () 120.3 > 150.0 Estimated GFR (Non- 103.8 130.4 BUN/Creatinine Ratio 6.5 (10-20) 6.9 (10-20) Calcium Level 7.5 mg/dl (8.5-10.1) 7.7 mg/dl (8.5-10.1) White Blood Count 3.00 K/uL (4.8-10.8) Red Blood Count 2.55 M/uL (4.2-5.4) Hemoglobin 8.8 g/dL (12.0-16.0) Hematocrit 25.1 % (37-47) Mean Corpuscular Volume 98.4 fL (80-100) Mean Corpuscular Hemoglobin 34.5 pg (25-34) Mean Corpuscular Hemoglobin Concent 35.1 g/dl (32-36) Platelet Count 108 K/uL (130-400) Mean Platelet Volume 8.8 fL (7.4-10.4) Neutrophils (%) (Auto) 37.7 % Lymphocytes (%) (Auto) 50.7 % Monocytes (%) (Auto) 10.3 % Eosinophils (%) (Auto) 1.0 % Basophils (%) (Auto) 0.3 % Neutrophils # (Auto) 1.13 K/uL (1.4-6.5) Lymphocytes # (Auto) 1.52 K/uL (1.2-3.4) Monocytes # (Auto) 0.31 K/uL (0.11-0.59) Eosinophils # (Auto) 0.03 K/uL (0-0.5) Basophils # (Auto) 0.01 K/uL (0-0.2) RDW Standard Deviation 48.1 fL (36.4-46.3) RDW Coefficient of Variation 13.2 % (11.5-14.5) Immature Granulocyte % (Auto) 0.0 % Immature Granulocyte # (Auto) 0.00 K/uL (0.00-0.02) Large Platelets 1+ Cortisol Response to Stimulation Cortisol Baseline Allergies Coded Allergies: Penicillins (Unverified Allergy, Mild, rash, 04/13/17) Medications Current Inpatient Medications Medications (Trade) Dose Ordered Sig/Kevin Route Start Time Stop Time Status Last Admin Dose Admin Enoxaparin Sodium (Lovenox Inj) 40 mg Q24H SC 04/13/17 21:00 05/13/17 20:59 04/14/17 20:33 40 MG Acetaminophen (Tylenol Tab) 650 mg Q4H PRN PO 04/13/17 13:00 05/13/17 12:59 04/13/17 18:19 650 MG Al Hydrox/Mg Hydrox/Simethicone (Maalox Max Susp) 15 ml Q4H PRN PO 04/13/17 13:00 05/13/17 12:59 Ondansetron HCl (Zofran Inj) 4 mg Q6H PRN IV 04/13/17 13:00 05/13/17 12:59 Polyethylene (Miralax Powder Packet) 17 gm DAILY PRN PO 04/13/17 13:00 05/13/17 12:59 Lorazepam (Ativan Inj) 1 mg Q4H PRN IV 04/13/17 13:00 05/13/17 12:59 Lorazepam (Ativan Inj) 0.5 mg Q4H PRN IV 04/13/17 13:00 05/13/17 12:59 Lorazepam (Ativan Tab) 0.5 mg Q6 PRN PO 04/13/17 13:00 05/13/17 12:59 Clindamycin HCl (Cleocin Cap) 150 mg Q6 PO 04/13/17 18:00 04/20/17 17:59 04/15/17 08:23 150 MG Ranitidine HCl (zANTac TAB) 150 mg BID PO 04/13/17 21:00 05/13/17 20:59 04/15/17 08:23 150 MG Gentamicin Sulfate (Gentamicin 0.3% Oph Soln) 2 drops TID OP 04/13/17 21:00 04/16/17 20:59 04/15/17 08:24 2 DROPS Folic Acid (Folvite Tab) 1 mg QAM PO 04/14/17 09:00 05/14/17 08:59 04/15/17 08:24 1 MG Thiamine HCl (Vitamin B-1 Tab) 100 mg QAM PO 04/14/17 09:00 05/14/17 08:59 04/15/17 08:23 100 MG Multivitamins (Multivitamin Tab) 1 tab QAM PO 04/14/17 09:00 05/14/17 08:59 04/15/17 08:23 1 TAB Enteral Nutritional Formula (Boost) 1 can TIDM PO 04/15/17 08:00 05/15/17 07:59 Cephalexin Monohydrate (Keflex Cap) 500 mg BID@0900,2100 PO 04/15/17 09:15 04/20/17 09:14 04/15/17 09:44 500 MG Impression (1) Hypokalemia (2) Hypomagnesemia (3) Hypotension (4) Hyponatremia (5) Rib fracture (6) Anemia (7) UTI (urinary tract infection) 56-year-old female with significant electrolyte abnormality including hyponatremia, hypomagnesemia and hypokalemia in the setting of overall not feeling well, poor p.o. intake for few weeks, recurrent fall at home and questionable history use of diuretics at home. No history of hypertension, diabetes or chronic kidney disease. On admission serum sodium was 117, potassium was 2.1 and magnesium was 1.6, started on IV normal saline, received potassium and magnesium supplement. Sodium improved to 129 this morning, potassium 3.0, magnesium normalized. Unclear etiology for this significant electrolyte abnormality, could be combination volume depletion, poor p.o. intake, hypotension, pain with fall and rib fracture as well as diuretics use. Recommendations --stop further IV fluid --encourage p.o. intake, encourage high-protein diet --monitor serum sodium Q 12 hours Will follow
[2017-04-15] MEDS ORDERED: HYDROCORTISONE IV 25 MG in SYRINGE 0 ML IV ONE (11:30)
[2017-04-15] MEDS ORDERED: OPTIRAY 320 IV PRN (11:30)
[2017-04-15] MEDS: HYDROCORTISONE IV 25 MG in SYRINGE 0 ML IV SCH ×2 (14:38→21:20)
--- NOTE | 2017-04-15 14:43 | DIAGNOSTIC IMAGING REPORT ---
ABDOMEN AND PELVIS CT WITH IV AND ORAL CONTRAST CT DOSE: 540.46 mGy.cm HISTORY: Early Satiety; Weight loss; Abdominal Pain; Adrenal Insuff. TECHNIQUE: Multiaxial CT images of the abdomen and pelvis were performed following the use of intravenous and oral contrast. A dose lowering technique was utilized adhering to the principles of ALARA. COMPARISON STUDY: None. FINDINGS: Small bilateral pleural effusions with associated posterior lower lobe densities. This favors compressive atelectasis from the pleural effusions. No pneumoperitoneum. No pneumatosis. Old, healed right pubic ring fractures. Old, healed bilateral rib fractures. Old distal sacral fracture. Healing right greater trochanter fracture. There is suggestion of the sacral decubitus ulcer. Cholelithiasis. The liver, spleen, adrenal glands, and pancreas are unremarkable. Normal kidneys. No hydronephrosis. No retroperitoneal lymphadenopathy. There is a Garsia catheter within the bladder. The bladder remains mildly distended. The uterus and adnexa are unremarkable. Mild body wall edema. No bowel wall thickening. Normal appendix. Borderline distended fluid-filled and contrast-filled loops of large and small bowel. No evidence for bowel obstruction. IMPRESSION: 1. Borderline distended contrast and fluid-filled loops of large and small bowel. This is nonspecific but could represent a mild ileus or gastroenteritis. No evidence for bowel obstruction. 2. Small bilateral pleural effusions. 3. Healing right greater trochanter fracture. 4. Sacral decubitus ulcer. 5. Cholelithiasis. 6. A Garsia catheter within the bladder. The bladder remains mildly distended. 7. Mild body wall edema. Electronically signed by: Gerald Cee M.D. 04/15/2017 2:42 PM Dictated Date/Time: 04/15/2017 2:32 PM
--- NOTE | 2017-04-15 14:46 | DIAGNOSTIC IMAGING REPORT ---
(CHEST) THORAX WITH CT DOSE: HISTORY: Cough. Dyspnea. Early Satiety; Weight Loss; Smoker; Cough TECHNIQUE: Multiaxial CT images of the chest were performed following the intravenous administration of contrast. A dose lowering technique was utilized adhering to the principles of ALARA. COMPARISON: None. FINDINGS: Small bilateral pleural effusions. Mild bibasilar atelectatic change. Mid to upper lungs are considered clear. No significant mediastinal or hilar adenopathy postoperative changes to the left shoulder. Moderate degenerative change thoracic spine. Several subacute right-sided rib fractures. Several old left rib fractures. IMPRESSION: 1. Small bilateral pleural effusions. 2. Mild bibasilar atelectasis. 3. No evidence for focal infiltrative or nodular pathology. 4. Several subacute to old bilateral rib fractures. The above report was generated using voice recognition software. It may contain grammatical, syntax or spelling errors. Electronically signed by: Earl Jaramillo M.D. 04/15/2017 2:44 PM Dictated Date/Time: 04/15/2017 2:23 PM
--- NOTE | 2017-04-15 15:19 | Hospitalist Progress Note ---
Hospitalist Progress Note Date of Service Apr 15, 2017. (Jeannine Lopez PA-C) Subjective Pt evaluation today including: conversation w/ patient, physical exam, chart review, lab review, review of studies, review of inpatient medication list Patient seen and evaluated. No acute events overnight. Electrolytes improving and patient reporting improvement in generalized weakness. Stim test suggest adrenal insufficiency and will implement steroid therapy. Verbalized no issues at this time. Constitutional: No fever, No chills Respiratory: + cough, + sputum, No shortness of breath Cardiovascular: No chest pain Abdomen: No pain, No nausea, No vomiting, No diarrhea, No constipation Musculoskeletal: No swelling, No calf pain Female : No dysuria Neurologic: + numbness/tingling Psychiatric: + substance abuse Heme: No abnormal bleeding/bruising Skin: No rash (Jeannine Lopez PA-C) Medications Current Inpatient Medications Medications (Trade) Dose Ordered Sig/Kvein Route Start Time Stop Time Status Last Admin Dose Admin Enoxaparin Sodium (Lovenox Inj) 40 mg Q24H SC 04/13/17 21:00 05/13/17 20:59 04/14/17 20:33 40 MG Acetaminophen (Tylenol Tab) 650 mg Q4H PRN PO 04/13/17 13:00 05/13/17 12:59 04/13/17 18:19 650 MG Al Hydrox/Mg Hydrox/Simethicone (Maalox Max Susp) 15 ml Q4H PRN PO 04/13/17 13:00 05/13/17 12:59 Ondansetron HCl (Zofran Inj) 4 mg Q6H PRN IV 04/13/17 13:00 05/13/17 12:59 Polyethylene (Miralax Powder Packet) 17 gm DAILY PRN PO 04/13/17 13:00 05/13/17 12:59 Lorazepam (Ativan Inj) 1 mg Q4H PRN IV 04/13/17 13:00 05/13/17 12:59 Lorazepam (Ativan Inj) 0.5 mg Q4H PRN IV 04/13/17 13:00 05/13/17 12:59 Lorazepam (Ativan Tab) 0.5 mg Q6 PRN PO 04/13/17 13:00 05/13/17 12:59 Clindamycin HCl (Cleocin Cap) 150 mg Q6 PO 04/13/17 18:00 04/20/17 17:59 04/15/17 08:23 150 MG Ranitidine HCl (zANTac TAB) 150 mg BID PO 04/13/17 21:00 05/13/17 20:59 04/15/17 08:23 150 MG Gentamicin Sulfate (Gentamicin 0.3% Oph Soln) 2 drops TID OP 04/13/17 21:00 04/16/17 20:59 04/15/17 14:38 2 DROPS Folic Acid (Folvite Tab) 1 mg QAM PO 04/14/17 09:00 05/14/17 08:59 04/15/17 08:24 1 MG Thiamine HCl (Vitamin B-1 Tab) 100 mg QAM PO 04/14/17 09:00 05/14/17 08:59 04/15/17 08:23 100 MG Multivitamins (Multivitamin Tab) 1 tab QAM PO 04/14/17 09:00 05/14/17 08:59 04/15/17 08:23 1 TAB Enteral Nutritional Formula (Boost) 1 can TIDM PO 04/15/17 08:00 05/15/17 07:59 Cephalexin Monohydrate (Keflex Cap) 500 mg BID@0900,2100 PO 04/15/17 09:15 04/20/17 09:14 04/15/17 09:44 500 MG Hydrocortisone Sodium Succinate 25 mg/Syringe 0.5 ml @ 4 mls/min TID IV 04/15/17 14:00 05/15/17 13:59 04/15/17 14:38 4 MLS/MIN Ioversol (Optiray 320) 125 ml UD PRN IV 04/15/17 11:30 04/19/17 11:29 Cyanocobalamin (Vitamin B-12 Tab) 1,000 mcg QAM PO 04/16/17 09:00 05/16/17 08:59 (Jeannine Lopez PA-C) Objective Vital Signs Date Time Temp Pulse Resp B/P (MAP) Pulse Ox O2 Delivery O2 Flow Rate FiO2 04/15/17 12:00 Room Air 04/15/17 11:37 36.9 75 18 93/62 (72) 97 Room Air 04/15/17 08:00 Room Air 04/15/17 07:53 36.8 80 16 88/56 (67) 94 Room Air 04/15/17 07:28 88 96/62 (73) 04/15/17 05:05 37.1 83 18 95/55 (68) 95 Room Air 04/15/17 04:00 Room Air 04/15/17 00:38 37.1 80 17 90/57 (68) 97 Room Air 04/15/17 00:00 Room Air 04/14/17 20:10 36.9 79 20 94/62 (73) 97 Room Air 04/14/17 20:00 97 Room Air 04/14/17 18:49 36.5 86 16 84/52 (63) 100 2.0 04/14/17 16:00 99 Nasal Cannula 2.0 04/14/17 15:53 37.0 79 22 83/53 (63) 99 Nasal Cannula 2.0 (Jeannine Lopez, PA-C) Physical Exam General Appearance: no apparent distress, + pertinent finding (chronically ill- appearing) ENT: hearing grossly normal Neck: supple, no JVD, trachea midline Respiratory/Chest: lungs clear, normal breath sounds, no respiratory distress, no accessory muscle use Cardiovascular: regular rate, rhythm, no gallop, no murmur Abdomen: normal bowel sounds, non tender, soft Extremities: no pedal edema, no calf tenderness Neurologic/Psychiatric: alert, oriented x 3 Skin: + jaundice (Jeannine Lopez, PA-C) Laboratory Results Last 24 Hours Test 04/14/17 19:45 04/14/17 20:24 04/15/17 05:43 04/15/17 08:13 Urine Osmolality 411 mOms/kg Sodium Level 131 mmol/L 129 mmol/L Potassium Level 4.2 mmol/L 4.2 mmol/L Chloride Level 97 mmol/L 97 mmol/L Carbon Dioxide Level 29 mmol/L 27 mmol/L Anion Gap 5.0 mmol/L 5.0 mmol/L Blood Urea Nitrogen 4 mg/dl 2 mg/dl Creatinine 0.58 mg/dl 0.29 mg/dl Est Creatinine Clear Calc Drug Dose 93.8 ml/min 187.5 ml/min Estimated GFR () 120.3 > 150.0 Estimated GFR (Non- 103.8 130.4 BUN/Creatinine Ratio 6.5 6.9 Random Glucose 110 mg/dl 86 mg/dl Calcium Level 7.5 mg/dl 7.7 mg/dl White Blood Count 3.00 K/uL Red Blood Count 2.55 M/uL Hemoglobin 8.8 g/dL Hematocrit 25.1 % Mean Corpuscular Volume 98.4 fL Mean Corpuscular Hemoglobin 34.5 pg Mean Corpuscular Hemoglobin Concent 35.1 g/dl Platelet Count 108 K/uL Mean Platelet Volume 8.8 fL Neutrophils (%) (Auto) 37.7 % Lymphocytes (%) (Auto) 50.7 % Monocytes (%) (Auto) 10.3 % Eosinophils (%) (Auto) 1.0 % Basophils (%) (Auto) 0.3 % Neutrophils # (Auto) 1.13 K/uL Lymphocytes # (Auto) 1.52 K/uL Monocytes # (Auto) 0.31 K/uL Eosinophils # (Auto) 0.03 K/uL Basophils # (Auto) 0.01 K/uL RDW Standard Deviation 48.1 fL RDW Coefficient of Variation 13.2 % Immature Granulocyte % (Auto) 0.0 % Immature Granulocyte # (Auto) 0.00 K/uL Large Platelets 1+ Cortisol Response to Stimulation Cortisol Baseline Test 04/15/17 10:40 04/15/17 14:45 (Jeannine Lopez, PAOmarC) Assessment and Plan 56-year-old female with marked hyponatremia hypokalemia hypomagnesemia concern for alcohol abuse Adrenal Insufficiency: - Stim test supports this finding - Hydrocortisone 25 mg TID x 2 days and will then convert to orals - Continue to monitor electrolytes Fluid and Electrolyte Imbalance - Dehydration and Malnutrition - 120+ Unintentional Weight Loss/Dysphagia - Hyponatremia, hypomagnesemia, and hypokalemia - likely due to ETOH use and malnutrition - Bassett CT of chest and abd/pelvis - no findings concerning for malignancy and will obtain hemoccult - Nephrology following - appreciate recommendations - plan to allow oral intake of fluids Pneumonitis/Aspiration and UTI (Gram Neg): - Clindamycin 150 mg Q6H and Keflex 500 mg BID Bilateral Conjunctivitis: IMPROVING - Gentamicin gtt TID ETOH Use with Possible Gastritis: - Patient does not appear to believe drinking is an issue - states she has about 2-3 beers a day on average - cannot correlate if the "unsteadiness" is related to drinking or not - Ativan PRN for withdrawal symptoms - no active withdrawal at this time - Folic Acid 1 mg daily, Thiamine 100 mg daily, and MVI - Zantac 150 mg BID Pancytopenia: STABLE - Continue to monitor - likely in setting of ETOH Use DVT Prophylaxis: Lovenox 40 mg SC daily Disposition: - PT/OT - recommending rehab vs home pending on progress - Patient has numerous falls and has sustained several injuries - denies physical abuse/domestic violence - Hopeful D/C next 1-2 days Continued [facility] stay due to: multiple IV medications needed Discharge planning: uncertain (home vs rehab) (Jeannine Lopez, PAOdalys) Attending Attestation: Pt seen/examined, chart reviewed, care plan d/w ANA Lopez. I agree w/ the mario components of her documentation. Pt feels better today with more energy. She states "I did some walking." Improved appetite. Tele stable. VSS afebrile gen - chronically ill/malnourished appearing neck - no lymphadenopathy or masses heart - RRR lungs - CTA b/l abd - soft NT BS+ ext - no edema skin - slight hyperpigmentation, pallor A/P: 1. hyponatremia - much improved. Suspect multifactorial including beer potomania, poor oral intake of salt, adrenal insufficiency, etc. Defer management to nephrology. Serial labs. 3. weakness - due to above, low K, low mag, adrenal insufficiency; should improved; PT, OT in meantime. 4. alcohol abuse - thiamine/folic acid/MVI. Watch for DTs but thus far no evidence of such 5. massive weight loss - concerning for malignancy. Bassett-CT w/o obvious malignancy. Will recommend outpatient mammo, colon, EGD, etc. Adrenal insufficiency could have contributed but doubt it was sole player. 6. adrenal insufficiency - stim test c/w such. start hydrocortisone 25 IV TID due to low bp. continue salt repletion. send ACTH to determine if primary or secondary. if primary will need florinef as well. 7. pancytopenia - could be directly due to etoh abuse, liver disease, primary bone marrow failure/lymphoma/etc Mild neutropenia today. CBC in am. TSH slightly high but doubt this is cause. B12/folate wnl. will need outpatient f/u for this. Roopa SUN MD (Chele Sun MD)
[2017-04-15 15:26] LABS: BLOOD UREA NITROGEN 1 mg/dl (7-18); BUN/CREATININE RATIO 4.2 (10-20); CALCIUM 8.1 mg/dl (8.5-10.1); CARBON DIOXIDE 25 mmol/L (21-32); CHLORIDE 94 mmol/L (98-107); CREATININE 0.28 mg/dl (0.60-1.20); GLUCOSE 97 mg/dl (70-99); POTASSIUM 4.4 mmol/L (3.5-5.1); SODIUM 126 mmol/L (136-145)
[2017-04-15] MEDS ORDERED: SODIUM CHLORIDE 1 GM TAB PO ONE (17:30)
[2017-04-15] MEDS: SODIUM CHLORIDE 1 GM TAB PO SCH (21:19)
[2017-04-15] MEDS: ENOXAPARIN 40 MG/0.4 ML SYR SC SCH (21:21)
[2017-04-16 04:19] VITALS: BP 101/65; PULSE 84; TEMP 37.1; O2SAT 96
[2017-04-16] MEDS: CLINDAMYCIN HCL 150 MG CAP PO SCH ×3 (06:09→17:58)
[2017-04-16 06:13] LABS: HEMATOCRIT 27.5 % (37-47); MEAN CELL VOLUME 98.2 fL (80-100); MEAN CORPUSCULAR HEMOGLOBIN 34.3 pg (25-34); MEAN CORPUSCULAR HGB CONC 34.9 g/dl (32-36); MEAN PLATELET VOLUME 9.1 fL (7.4-10.4); PLATELET COUNT 127 K/uL (130-400); WHITE BLOOD COUNT 3.45 K/uL (4.8-10.8)
[2017-04-16 06:48] LABS: BUN/CREATININE RATIO 15.2 (10-20); CREATININE 0.33 mg/dl (0.60-1.20); MAGNESIUM 1.8 mg/dl (1.8-2.4); POTASSIUM 3.8 mmol/L (3.5-5.1)
[2017-04-16 06:53] LABS: C-REACTIVE PROTEIN 1.04 mg/dl (0-0.29); PHOSPHORUS 2.9 mg/dl (2.5-4.9)
[2017-04-16 07:55] VITALS: BP 100/64; PULSE 84; TEMP 37.2; O2SAT 93
[2017-04-16] MEDS: THIAMINE HCL 100 MG TAB PO SCH (07:57)
[2017-04-16] MEDS: CEPHALEXIN MONOHYDRATE 500 MG CAP PO SCH (07:57)
[2017-04-16] MEDS: RANITIDINE HCL 150 MG TAB PO SCH ×2 (07:57→20:30)
[2017-04-16] MEDS: HYDROCORTISONE IV 25 MG in SYRINGE 0 ML IV SCH (07:57)
[2017-04-16] MEDS: GENTAMICIN SULFATE 0.3% OP SOLN 5 ML BTL OP SCH ×2 (07:57→14:10)
[2017-04-16] MEDS: SODIUM CHLORIDE 1 GM TAB PO SCH ×2 (07:57→20:31)
[2017-04-16] MEDS: MULTIVITAMIN TAB PO SCH (07:58)
[2017-04-16] MEDS: BOOST VANILLA PO SCH ×6 (08:04→20:44)
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
[2017-04-16] MEDS: CYANOCOBALAMIN 500 MCG TAB (VIT B-12) PO SCH (10:11)
[2017-04-16] MEDS ORDERED: ERGOCALCIFEROL 50,000 INTER.UNIT CAP PO SCH (10:45)
--- NOTE | 2017-04-16 10:47 | Nephrology Progress Note ---
Nephrology Progress Note Date of Service Apr 16, 2017. Chief Complaint F/U for the hypokalemia and hyponatremia. Ashley Freeman was seen and examined in her room this morning. Overall she feels better, denies any symptoms. Blood pressure improved. Serum sodium improved and stable at 131, other electrolyte acceptable. Review of Systems A complete review of systems was performed. Pertinent positives are noted above. All other systems are negative. Vital Signs Last 8 Hrs Date Time Temp Pulse Resp B/P (MAP) Pulse Ox O2 Delivery O2 Flow Rate FiO2 04/16/17 08:00 Room Air 04/16/17 07:55 37.2 84 18 100/64 (76) 93 Room Air 04/16/17 04:19 37.1 84 18 101/65 (77) 96 Room Air 04/16/17 04:00 Room Air Last Recorded Weight Weight (Kilograms): 57.200 Physical Exam GENERAL: Middle-aged female , AAA x 3, ill-appearing, not in any distress. NECK: Supple, no JVD. RESPIRATORY: Normal breathing efforts, no accessory muscle use, clear to auscultation bilaterally, no wheezes or rales. CARDIOVASCULAR: S1, S2 normal, rate rhythm regular. EXTREMITY: No lower extremity edema NEURO: speech fluent. PSYCHIATRY: Normal mood and judgment Family History Cancer Diabetes mellitus Heart disease Hypertension Kidney disease Lung disease Social History Smokeless Tobacco Use: No Alcohol Use: I suspect this is daily and having Drug Use: none Marital Status: in relationship Housing Status: lives with family Laboratory Results Past 24 Hours 04/16/17 05:52 04/15/17 14:45 04/15/17 20:21 04/16/17 05:52 Test 04/15/17 14:45 04/16/17 05:52 Anion Gap 7.0 mmol/L (3-11) 7.0 mmol/L (3-11) Est Creatinine Clear Calc Drug Dose 206.8 ml/min 173.9 ml/min Estimated GFR () > 150.0 144.8 Estimated GFR (Non- 131.9 124.9 BUN/Creatinine Ratio 4.2 (10-20) 15.2 (10-20) Calcium Level 8.1 mg/dl (8.5-10.1) 8.0 mg/dl (8.5-10.1) Red Blood Count 2.80 M/uL (4.2-5.4) Mean Corpuscular Volume 98.2 fL (80-100) Mean Corpuscular Hemoglobin 34.3 pg (25-34) Mean Corpuscular Hemoglobin Concent 34.9 g/dl (32-36) RDW Standard Deviation 47.0 fL (36.4-46.3) RDW Coefficient of Variation 13.1 % (11.5-14.5) Mean Platelet Volume 9.1 fL (7.4-10.4) Phosphorus Level 2.9 mg/dl (2.5-4.9) Magnesium Level 1.8 mg/dl (1.8-2.4) C-Reactive Protein 1.04 mg/dl (0-0.29) Prealbumin 3.7 mg/dl (20-40) 25-Hydroxy Vitamin D Total 7.9 ng/ml (30-100) Allergies Coded Allergies: Penicillins (Unverified Allergy, Mild, rash, 04/13/17) Medications Current Inpatient Medications Medications (Trade) Dose Ordered Sig/Kevin Route Start Time Stop Time Status Last Admin Dose Admin Enoxaparin Sodium (Lovenox Inj) 40 mg Q24H SC 04/13/17 21:00 05/13/17 20:59 04/15/17 21:21 40 MG Acetaminophen (Tylenol Tab) 650 mg Q4H PRN PO 04/13/17 13:00 05/13/17 12:59 04/13/17 18:19 650 MG Al Hydrox/Mg Hydrox/Simethicone (Maalox Max Susp) 15 ml Q4H PRN PO 04/13/17 13:00 05/13/17 12:59 Ondansetron HCl (Zofran Inj) 4 mg Q6H PRN IV 04/13/17 13:00 05/13/17 12:59 Polyethylene (Miralax Powder Packet) 17 gm DAILY PRN PO 04/13/17 13:00 05/13/17 12:59 Lorazepam (Ativan Inj) 1 mg Q4H PRN IV 04/13/17 13:00 05/13/17 12:59 Lorazepam (Ativan Inj) 0.5 mg Q4H PRN IV 04/13/17 13:00 05/13/17 12:59 Lorazepam (Ativan Tab) 0.5 mg Q6 PRN PO 04/13/17 13:00 05/13/17 12:59 Clindamycin HCl (Cleocin Cap) 150 mg Q6 PO 04/13/17 18:00 04/20/17 17:59 04/16/17 06:09 150 MG Ranitidine HCl (zANTac TAB) 150 mg BID PO 04/13/17 21:00 05/13/17 20:59 04/16/17 07:57 150 MG Gentamicin Sulfate (Gentamicin 0.3% Oph Soln) 2 drops TID OP 04/13/17 21:00 04/16/17 20:59 04/16/17 07:57 2 DROPS Folic Acid (Folvite Tab) 1 mg QAM PO 04/14/17 09:00 05/14/17 08:59 04/16/17 07:57 1 MG Thiamine HCl (Vitamin B-1 Tab) 100 mg QAM PO 04/14/17 09:00 05/14/17 08:59 04/16/17 07:57 100 MG Multivitamins (Multivitamin Tab) 1 tab QAM PO 04/14/17 09:00 05/14/17 08:59 04/16/17 07:58 1 TAB Cephalexin Monohydrate (Keflex Cap) 500 mg BID@0900,2100 PO 04/15/17 09:15 04/20/17 09:14 04/16/17 07:57 500 MG Hydrocortisone Sodium Succinate 25 mg/Syringe 0.5 ml @ 4 mls/min TID IV 04/15/17 14:00 05/15/17 13:59 04/16/17 07:57 4 MLS/MIN Ioversol (Optiray 320) 125 ml UD PRN IV 04/15/17 11:30 04/19/17 11:29 Cyanocobalamin (Vitamin B-12 Tab) 1,000 mcg QAM PO 04/16/17 09:00 05/16/17 08:59 04/16/17 10:11 1,000 MCG Enteral Nutritional Formula (Boost) 1 can TID PO 04/15/17 21:00 05/15/17 20:59 04/16/17 08:04 1 CAN Sodium Chloride (Sodium Chloride Tab) 1 gm BID PO 04/15/17 21:00 05/15/17 20:59 04/16/17 07:57 1 GM Impression (1) Hypokalemia (2) Hypomagnesemia (3) Hypotension (4) Hyponatremia (5) Rib fracture (6) Anemia (7) UTI (urinary tract infection) 56-year-old female with significant electrolyte abnormality including hyponatremia, hypomagnesemia and hypokalemia in the setting of overall not feeling well, poor p.o. intake for few weeks, recurrent fall at home and questionable history use of diuretics at home. No history of hypertension, diabetes or chronic kidney disease. On admission serum sodium was 117, potassium was 2.1 and magnesium was 1.6, started on IV normal saline, received potassium and magnesium supplement. Sodium improved to 129 this morning, potassium 3.0, magnesium normalized. Unclear etiology for this significant electrolyte abnormality, could be combination volume depletion, poor p.o. intake, hypotension, pain with fall and rib fracture as well as diuretics use. Recommendations --Continue on oral salt tablet 1 gram twice a day for now --encourage p.o. intake, encourage high-protein diet --monitor serum sodium Q 12 hours Will follow
[2017-04-16 11:35] VITALS: BP 109/71; PULSE 77; TEMP 36.5; O2SAT 98
[2017-04-16] MEDS: FLUDROCORTISONE ACETATE 0.1 MG TAB PO SCH (13:06)
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
[2017-04-16 17:09] LABS: BUN/CREATININE RATIO 11.2 (10-20); CALCIUM 8.4 mg/dl (8.5-10.1); CREATININE 0.55 mg/dl (0.60-1.20); POTASSIUM 3.8 mmol/L (3.5-5.1)
[2017-04-16 19:17] VITALS: BP 106/64; PULSE 83; TEMP 36.4; O2SAT 99
[2017-04-16] MEDS: HYDROCORTISONE 10 MG TAB PO SCH (20:29)
[2017-04-16] MEDS: ENOXAPARIN 40 MG/0.4 ML SYR SC SCH (20:31)
[2017-04-16] MEDS: CEFUROXIME AXETIL 500 MG TAB PO SCH (20:40)
--- NOTE | 2017-04-16 22:00 | DIAGNOSTIC IMAGING REPORT ---
RIGHT HIP 2 VIEWS CLINICAL HISTORY: Right hip pain. FINDINGS: Portable AP and frog-leg views of the right hip are correlated with pelvic CT dated 04/15/2017. The skeletal structures are osteopenic. There is no radiographic evidence of acute fracture involving the right hip or the visualized right hemipelvis. A healing fracture through the greater trochanter of the right femur is again noted. There are healed right pubic ring fractures. Mild soft tissue edema is seen in the right upper thigh. IMPRESSION: 1. No acute fracture is seen. 2. Again seen is a healing greater trochanteric fracture as well as healed right pubic ring fractures. These were better characterized on yesterday's pelvic CT. Electronically signed by: Samir Addison M.D. 04/16/2017 9:59 PM Dictated Date/Time: 04/16/2017 9:55 PM
[2017-04-16] MEDS: ACETAMINOPHEN 325 MG TAB PO PRN (22:34)
[2017-04-17 00:06] VITALS: BP 105/70; PULSE 82; TEMP 37; O2SAT 95
[2017-04-17 04:18] VITALS: BP 114/73; PULSE 73; TEMP 36.6; O2SAT 96
[2017-04-17 05:41] LABS: COMPLETE YES; HEMATOCRIT 26.4 % (37-47); IG% 0.3 %; LYMPH % 18.1 %; LYMPH ABS # 0.52 K/uL (1.2-3.4); MEAN CELL VOLUME 101.1 fL (80-100); MEAN CORPUSCULAR HEMOGLOBIN 34.9 pg (25-34); MEAN CORPUSCULAR HGB CONC 34.5 g/dl (32-36); MONO % 5.9 %; NEUT % 75.7 %; PLATELET COUNT 147 K/uL (130-400); RED BLOOD COUNT 2.61 M/uL (4.2-5.4); WHITE BLOOD COUNT 2.88 K/uL (4.8-10.8)
[2017-04-17 06:04] LABS: BUN/CREATININE RATIO 18.4 (10-20); CALCIUM 8.2 mg/dl (8.5-10.1); CREATININE 0.4 mg/dl (0.60-1.20); POTASSIUM 4.1 mmol/L (3.5-5.1)
[2017-04-17 07:31] VITALS: BP 128/81; PULSE 65; TEMP 36.4; O2SAT 97
[2017-04-17 08:00] VITALS: O2SAT 97
[2017-04-17] MEDS: CEFUROXIME AXETIL 500 MG TAB PO SCH (08:06)
[2017-04-17] MEDS: MULTIVITAMIN TAB PO SCH (08:07)
[2017-04-17] MEDS: CYANOCOBALAMIN 500 MCG TAB (VIT B-12) PO SCH (08:07)
[2017-04-17] MEDS: SODIUM CHLORIDE 1 GM TAB PO SCH (08:07)
[2017-04-17] MEDS: RANITIDINE HCL 150 MG TAB PO SCH (08:08)
[2017-04-17] MEDS: FLUDROCORTISONE ACETATE 0.1 MG TAB PO SCH (08:08)
[2017-04-17] MEDS: THIAMINE HCL 100 MG TAB PO SCH (08:08)
[2017-04-17] MEDS: HYDROCORTISONE 10 MG TAB PO SCH ×2 (08:09→15:45)
[2017-04-17] MEDS: BOOST VANILLA PO SCH ×4 (08:14→14:09)
--- NOTE | 2017-04-17 10:23 | Nephrology Progress Note ---
Nephrology Progress Note Date of Service Apr 17, 2017. Chief Complaint F/U for the hypokalemia and hyponatremia. Ashley Freeman was seen and examined in her room this morning. Overall she feels better, denies any symptoms. Blood pressure improved. Serum sodium improved and stable at 134, other electrolyte acceptable. Review of Systems A complete review of systems was performed. Pertinent positives are noted above. All other systems are negative. Vital Signs Last 8 Hrs Date Time Temp Pulse Resp B/P (MAP) Pulse Ox O2 Delivery O2 Flow Rate FiO2 04/17/17 07:31 36.4 65 18 128/81 (97) 97 Room Air 04/17/17 04:18 36.6 73 16 114/73 (87) 96 Room Air 04/17/17 04:00 Room Air Last Recorded Weight Weight (Kilograms): 59.700 Physical Exam GENERAL: Middle-aged female , AAA x 3, ill-appearing, not in any distress. NECK: Supple, no JVD. RESPIRATORY: Normal breathing efforts, no accessory muscle use, clear to auscultation bilaterally, no wheezes or rales. CARDIOVASCULAR: S1, S2 normal, rate rhythm regular. EXTREMITY: No lower extremity edema NEURO: speech fluent. PSYCHIATRY: Normal mood and judgment Family History Cancer Diabetes mellitus Heart disease Hypertension Kidney disease Lung disease Social History Smokeless Tobacco Use: No Alcohol Use: I suspect this is daily and having Drug Use: none Marital Status: in relationship Housing Status: lives with family Laboratory Results Past 24 Hours 04/17/17 05:25 Red Blood Count 2.61, Mean Corpuscular Volume 101.1, Mean Corpuscular Hemoglobin 34.9, Mean Corpuscular Hemoglobin Concent 34.5, Mean Platelet Volume 9.0, Neutrophils (%) (Auto) 75.7, Lymphocytes (%) (Auto) 18.1, Monocytes (%) ( Auto) 5.9, Eosinophils (%) (Auto) 0.0, Basophils (%) (Auto) 0.0, Neutrophils # ( Auto) 2.18, Lymphocytes # (Auto) 0.52, Monocytes # (Auto) 0.17, Eosinophils # ( Auto) 0.00, Basophils # (Auto) 0.00 04/16/17 16:27 04/17/17 05:25 Test 04/16/17 16:27 04/17/17 05:25 Anion Gap 7.0 mmol/L (3-11) 9.0 mmol/L (3-11) Est Creatinine Clear Calc Drug Dose 104.4 ml/min 143.5 ml/min Estimated GFR () 122.4 135.9 Estimated GFR (Non- 105.6 117.3 BUN/Creatinine Ratio 11.2 (10-20) 18.4 (10-20) Calcium Level 8.4 mg/dl (8.5-10.1) 8.2 mg/dl (8.5-10.1) White Blood Count 2.88 K/uL (4.8-10.8) Red Blood Count 2.61 M/uL (4.2-5.4) Hemoglobin 9.1 g/dL (12.0-16.0) Hematocrit 26.4 % (37-47) Mean Corpuscular Volume 101.1 fL (80-100) Mean Corpuscular Hemoglobin 34.9 pg (25-34) Mean Corpuscular Hemoglobin Concent 34.5 g/dl (32-36) Platelet Count 147 K/uL (130-400) Mean Platelet Volume 9.0 fL (7.4-10.4) Neutrophils (%) (Auto) 75.7 % Lymphocytes (%) (Auto) 18.1 % Monocytes (%) (Auto) 5.9 % Eosinophils (%) (Auto) 0.0 % Basophils (%) (Auto) 0.0 % Neutrophils # (Auto) 2.18 K/uL (1.4-6.5) Lymphocytes # (Auto) 0.52 K/uL (1.2-3.4) Monocytes # (Auto) 0.17 K/uL (0.11-0.59) Eosinophils # (Auto) 0.00 K/uL (0-0.5) Basophils # (Auto) 0.00 K/uL (0-0.2) RDW Standard Deviation 50.8 fL (36.4-46.3) RDW Coefficient of Variation 13.9 % (11.5-14.5) Immature Granulocyte % (Auto) 0.3 % Immature Granulocyte # (Auto) 0.01 K/uL (0.00-0.02) Allergies Coded Allergies: Penicillins (Unverified Allergy, Mild, rash, 04/13/17) Medications Current Inpatient Medications Medications (Trade) Dose Ordered Sig/Kevin Route Start Time Stop Time Status Last Admin Dose Admin Enoxaparin Sodium (Lovenox Inj) 40 mg Q24H SC 04/13/17 21:00 05/13/17 20:59 04/16/17 20:31 40 MG Acetaminophen (Tylenol Tab) 650 mg Q4H PRN PO 04/13/17 13:00 05/13/17 12:59 04/16/17 22:34 650 MG Al Hydrox/Mg Hydrox/Simethicone (Maalox Max Susp) 15 ml Q4H PRN PO 04/13/17 13:00 05/13/17 12:59 Ondansetron HCl (Zofran Inj) 4 mg Q6H PRN IV 04/13/17 13:00 05/13/17 12:59 Polyethylene (Miralax Powder Packet) 17 gm DAILY PRN PO 04/13/17 13:00 05/13/17 12:59 Lorazepam (Ativan Inj) 1 mg Q4H PRN IV 04/13/17 13:00 05/13/17 12:59 Lorazepam (Ativan Inj) 0.5 mg Q4H PRN IV 04/13/17 13:00 05/13/17 12:59 Lorazepam (Ativan Tab) 0.5 mg Q6 PRN PO 04/13/17 13:00 05/13/17 12:59 Ranitidine HCl (zANTac TAB) 150 mg BID PO 04/13/17 21:00 05/13/17 20:59 04/17/17 08:08 150 MG Folic Acid (Folvite Tab) 1 mg QAM PO 04/14/17 09:00 05/14/17 08:59 04/17/17 08:06 1 MG Thiamine HCl (Vitamin B-1 Tab) 100 mg QAM PO 04/14/17 09:00 05/14/17 08:59 04/17/17 08:08 100 MG Multivitamins (Multivitamin Tab) 1 tab QAM PO 04/14/17 09:00 05/14/17 08:59 04/17/17 08:07 1 TAB Ioversol (Optiray 320) 125 ml UD PRN IV 04/15/17 11:30 04/19/17 11:29 Cyanocobalamin (Vitamin B-12 Tab) 1,000 mcg QAM PO 04/16/17 09:00 05/16/17 08:59 04/17/17 08:07 1,000 MCG Enteral Nutritional Formula (Boost) 1 can TID PO 04/15/17 21:00 05/15/17 20:59 04/17/17 08:14 1 CAN Sodium Chloride (Sodium Chloride Tab) 1 gm BID PO 04/15/17 21:00 05/15/17 20:59 04/17/17 08:07 1 GM Ergocalciferol (Vitamin D Cap) 50,000 interunit Q7D@0900 PO 04/16/17 10:45 07/02/17 09:01 04/16/17 13:06 50,000 INTERUNIT Fludrocortisone Acetate (Florinef Tab) 0.1 mg QAM PO 04/16/17 12:30 05/16/17 12:29 04/17/17 08:08 0.1 MG Hydrocortisone (Cortef Tab) 30 mg BID PO 04/16/17 21:00 05/16/17 20:59 04/17/17 08:09 30 MG Cefuroxime Axetil (Ceftin Tab) 500 mg BID PO 04/16/17 21:00 04/23/17 20:59 04/17/17 08:06 500 MG Impression (1) Hypokalemia (2) Hypomagnesemia (3) Hypotension (4) Hyponatremia (5) Rib fracture (6) Anemia (7) UTI (urinary tract infection) 56-year-old female with significant electrolyte abnormality including hyponatremia, hypomagnesemia and hypokalemia in the setting of overall not feeling well, poor p.o. intake for few weeks, recurrent fall at home and questionable history use of diuretics at home. No history of hypertension, diabetes or chronic kidney disease. On admission serum sodium was 117, potassium was 2.1 and magnesium was 1.6, started on IV normal saline, received potassium and magnesium supplement. Sodium improved to 129 this morning, potassium 3.0, magnesium normalized. Unclear etiology for this significant electrolyte abnormality, could be combination volume depletion, poor p.o. intake, hypotension, pain with fall and rib fracture as well as diuretics use. Recommendations --Continue on oral salt tablet 1 gram twice a day --encourage p.o. intake, encourage high-protein diet --monitor electrolytes in 3/4 days after discharge Will sign off, please contact if any further concern. Thank you.
[2017-04-17] MEDS ORDERED: COUGH DROP (SUGAR FREE) LOZ 24 LOZ/1 BOX ONE (11:38)
[2017-04-17 11:41] VITALS: BP 123/82; PULSE 71; TEMP 36.4; O2SAT 99
[2017-04-17] MEDS ORDERED: NURSING VERBAL MED ORDER ONE (11:45)
[2017-04-17] MEDS ORDERED: COUGH DROP (SUGAR FREE) LOZ 24 LOZ/1 BOX PO PRN (12:00)
[2017-04-17] MEDS ORDERED: FLR/1 PO (13:16)
[2017-04-17] MEDS ORDERED: CEFU1TAB35 PO (13:16)
[2017-04-17] MEDS ORDERED: ERGO500011 PO (13:16)
[2017-04-17] MEDS ORDERED: SDMC1 PO (13:16)
[2017-04-17] MEDS ORDERED: MULT-890 PO (13:16)
[2017-04-17] MEDS ORDERED: HYD10 PO (13:16)
[2017-04-17] MEDS ORDERED: THM100 PO (13:16)
[2017-04-17] MEDS ORDERED: Boost PO (13:16)
[2017-04-17] MEDS ORDERED: VTMB12 PO (13:16)
[2017-04-17] MEDS ORDERED: ZNT150 PO (13:16)
[2017-04-17] MEDS ORDERED: FLV1 PO (13:16)
[2017-04-17] MEDS ORDERED: CHOL2000 PO (13:39)
--- NOTE | 2017-04-17 13:42 | Discharge Instructions ---
Discharge Instructions Date of Service Apr 17, 2017. Admission Reason for Admission: Hyponatremia Discharge Discharge Diagnosis / Problem: adrenal insufficiency (adrenal glands not working well at all, see below) Discharge Goals Goal(s): Diagnostic testing, Therapeutic intervention Activity Recommendations Activity Limitations: resume your previous activity (use caution - as we discussed, remember that falls can be catastrophic with as weak as you are and as thin as your bones are) . Instructions / Follow-Up Instructions / Follow-Up adrenal insufficiency -your adrenal glands don't appear to be working well at all -adrenal glands make hormones that help our metabolism work properly, deal with the stress put on our bodies by physical problems and/or emotional stressors, and work with our kidneys on regulating salt and water metabolism -your adrenals appear very weak right now - exactly why this is the case will still be under workup (with the next step being to see an specialty molder) -for treatment, we have to replace the two main types of steroid hormones adrenal glands usually make -fludrocortisone (florinef) - for now 0.1mg once a day -hydrocortisone - for now 30mg twice a day -as the specialty molder evaluates you and follows how you're doing, it's quite likely that the doses/medications will be changed over time; for now the dosing is working well enough to have you safe to be out of the hospital low sodium -for the most part, this was likely caused by the adrenal insufficiency describe above; in addition, when people already have problems causing them to waste sodium, diuretics like your hydrochlorothiazide (while not normally an issue) can accentuate the problem -for now stop taking the hydrochlorothiazide, your regular doctor will follow how your blood pressure is doing to restart something if necessary -for now, we also have you on the salt tablets (sodium chloride 1000mg twice a day) to keep your labs in a reasonable range; over time as your adrenal insufficiency is treated longer, and your malnutrition improves, we expect this to no longer be a necessary medication (ie it'll hopefully be a short term med only, but this will be based on how you are doing and what your follow up labwork looks like) deficiencies / malnutrition -your protein levels are severely low --> eat as much as you can, and continue with protein shakes like boost or ensure at least 2-3 times a day -your vitamin D levels are severely low - take TWO different vitamin D supplements - the prescription D2 (drisdol, ergocalciferol) 50,000 units once a week, AND also take an over the counter vitamin D3 2000 IU once a day. have your PCP repeat vitamin D levels in 3 months -while technically not low, we supplement your B12 and folic acid due to the rest of your deficiencies, and with your alcohol history. further, your red blood cells are a little big, which often fits with a low degree of deficiency/ ongoing drinking. in addition, we have to supplement with thiamine and a multivitamin for the same reasons. have your PCP follow up blood counts (CBC) to follow your red blood cell size periodically anemia -very likely from all of the deficiencies above. have your PCP follow blood work (CBC) as above - fairly frequently weight loss -while it's quite possible (even probable) that your weight loss is caused by the adrenal insufficiency, we always like to make sure people are up to date on cancer screenings when they have otherwise unexplained weight loss. the CT scans of your chest, abdomen, and pelvis do not show any evidence of cancer, but we'd want to make sure you're up to date on at least colonoscopy, mammogram/ breast exam, and skin exam osteoporosis, femur fracture -your films showed evidence of a healing fracture - while there is nothing that appears need for surgery now, we recommend following up with an orthopedic surgeon to track healing and make sure things heal as best as they can. in addition, we recommend your PCP check a DEXA (bone density) scan and start treatment for osteoporosis beyond just calcium and vitamin D. on top of all of that, please be extremely careful to avoid falls - with your current level of frailty, any fall could easily result in anywhere from serious to catastrophic injuries that could leave you forever impaired/scotty you of independence alcohol -any alcohol intake can really lead to worsening of any/all of the above. it's actually even plausible that alcohol abuse was the root cause of all of this. to this end, please avoid alcohol at all to help yourself be "less complicated" as a patient, and have a greater chance of success at getting better from all of this urinary tract infection -this was pretty minor, and will just require a few more days of antibiotics to clear. after you're off the antibiotics, call your PCP if you were to have pain /burning when you urinate elevated TSH -your TSH was slightly high, hinting at an underactive thyroid; however, the direct measurement of circulating thyroid hormone was normal, so it's also possible that your TSH was slightly elevated just from being sick, weak, and malnourished have this lab repeated in about 4 weeks. Current Hospital Diet Patient's current hospital diet: Regular Diet Discharge Diet Recommended Diet: Regular Diet Pending Studies Studies pending at discharge: no Medical Emergencies . Who to Call and When: Medical Emergencies: If at any time you feel your situation is an emergency, please call 911 immediately. . Non-Emergent Contact Non-Emergency issues call your: Primary Care Provider (for ongoing follow up, medication adjustments, following of labs, etc. you should be seeing your PCP quite frequently for the foreseeable future), Surgeon (orthopedic surgeon in the next 1-2 weeks to follow healing of the femur fracture), Specialist ( specialty molder as soon as can be arranged, to take control of the workup and management of your adrenal insufficiency) . . "Provider Documentation" section prepared by Terrance Raymond. . VTE Core Measure Inpt VTE Proph given/why not?: Enoxaparin (Lovenox)SQ
[2017-04-17 14:22] VITALS: BP 123/82; PULSE 71; TEMP 36.4; O2SAT 99
--- NOTE | 2017-04-17 17:51 | Discharge Summary ---
Discharge Summary Date of Service Apr 17, 2017. Discharge Summary Admission Date: Apr 13, 2017 at 12:56 Discharge Date: Apr 17, 2017 Discharge Disposition: Home with services Principal Diagnosis: adrenal insufficiency Procedures: Item Value Date Time Prealbumin 3.7 mg/dl L 04/16/17 0552 Thyroid Stimulating Hormone (TSH) 5.430 uIu/ml H 04/13/17 1100 25-Hydroxy Vitamin D Total 7.9 ng/ml L 04/16/17 0552 Vitamin B12 Level 408 pg/mL 04/14/17 1307 Folate 15.11 ng/mL 04/14/17 1307 Free Thyroxine 1.10 ng/dl 04/14/17 0702 Random Cortisol 4.55 mcg/dl 04/14/17 1307 Cortisol Baseline 0 2.72 04/15/17 0813 Cortisol Response to ACTH 1/2 Hour [id number] 9.92 04/15/17 0813 Cortisol Response to ACTH 1 Hour [id number] 7.08 04/15/17 0813 Adrenocorticotropic Hormone 14 PG/ML 04/15/17 1040 Albumin 2.5 gm/dl L 04/13/17 1100 Prealbumin 3.7 mg/dl L 04/16/17 0552 Last Resulted CBC 04/17/17 05:25 Red Blood Count 2.61, Mean Corpuscular Volume 101.1, Mean Corpuscular Hemoglobin 34.9, Mean Corpuscular Hemoglobin Concent 34.5, Mean Platelet Volume 9.0, Neutrophils (%) (Auto) 75.7, Lymphocytes (%) (Auto) 18.1, Monocytes (%) ( Auto) 5.9, Eosinophils (%) (Auto) 0.0, Basophils (%) (Auto) 0.0, Neutrophils # ( Auto) 2.18, Lymphocytes # (Auto) 0.52, Monocytes # (Auto) 0.17, Eosinophils # ( Auto) 0.00, Basophils # (Auto) 0.00 Last Resulted BMP 04/17/17 05:25 (CHEST) THORAX WITH CT DOSE: HISTORY: Cough. Dyspnea. Early Satiety; Weight Loss; Smoker; Cough TECHNIQUE: Multiaxial CT images of the chest were performed following the intravenous administration of contrast. A dose lowering technique was utilized adhering to the principles of ALARA. COMPARISON: None. FINDINGS: Small bilateral pleural effusions. Mild bibasilar atelectatic change. Mid to upper lungs are considered clear. No significant mediastinal or hilar adenopathy postoperative changes to the left shoulder. Moderate degenerative change thoracic spine. Several subacute right-sided rib fractures. Several old left rib fractures. IMPRESSION: 1. Small bilateral pleural effusions. 2. Mild bibasilar atelectasis. 3. No evidence for focal infiltrative or nodular pathology. 4. Several subacute to old bilateral rib fractures. The above report was generated using voice recognition software. It may contain grammatical, syntax or spelling errors. Electronically signed by: Earl Jaramillo M.D. 04/15/2017 2:44 PM [~ rep ct add3]] ABDOMEN AND PELVIS CT WITH IV AND ORAL CONTRAST CT DOSE: 540.46 mGy.cm HISTORY: Early Satiety; Weight loss; Abdominal Pain; Adrenal Insuff. TECHNIQUE: Multiaxial CT images of the abdomen and pelvis were performed following the use of intravenous and oral contrast. A dose lowering technique was utilized adhering to the principles of ALARA. COMPARISON STUDY: None. FINDINGS: Small bilateral pleural effusions with associated posterior lower lobe densities. This favors compressive atelectasis from the pleural effusions. No pneumoperitoneum. No pneumatosis. Old, healed right pubic ring fractures. Old, healed bilateral rib fractures. Old distal sacral fracture. Healing right greater trochanter fracture. There is suggestion of the sacral decubitus ulcer. Cholelithiasis. The liver, spleen, adrenal glands, and pancreas are unremarkable. Normal kidneys. No hydronephrosis. No retroperitoneal lymphadenopathy. There is a Garsia catheter within the bladder. The bladder remains mildly distended. The uterus and adnexa are unremarkable. Mild body wall edema. No bowel wall thickening. Normal appendix. Borderline distended fluid-filled and contrast-filled loops of large and small bowel. No evidence for bowel obstruction. IMPRESSION: 1. Borderline distended contrast and fluid-filled loops of large and small bowel. This is nonspecific but could represent a mild ileus or gastroenteritis. No evidence for bowel obstruction. 2. Small bilateral pleural effusions. 3. Healing right greater trochanter fracture. 4. Sacral decubitus ulcer. 5. Cholelithiasis. 6. A Garsia catheter within the bladder. The bladder remains mildly distended. 7. Mild body wall edema. Electronically signed by: Gerald Cee M.D. 04/15/2017 2:42 PM Dictated Date/Time: 04/15/2017 2:[address] HEAD WITHOUT CONTRAST (CT) CLINICAL HISTORY: Weakness COMPARISON STUDY: No previous studies for comparison. TECHNIQUE: Axial CT of the brain is performed from the vertex to the skull base. IV contrast was not administered for this examination. A dose lowering technique was utilized adhering to the principles of ALARA. CT DOSE: 1074.96 mGy.cm FINDINGS: No intra or extra-axial mass lesions are visualized. There is no CT evidence of acute cortical infarction. There is no evidence of midline shift. There is no acute hemorrhage. No calvarial fractures are visualized. There are mild white matter hypodensities likely on a small vessel basis. There is no evidence of pathologic ventricular dilatation. There is no evidence of acute sinusitis IMPRESSION: No acute intracranial findings Electronically signed by: Warren Bautista M.D. RIGHT HUMERUS 2 VIEWS HISTORY: Right arm pain after fall COMPARISON: None. FINDINGS: There is no acute fracture or dislocation. Soft tissues are unremarkable. Prior internal fixation of a right clavicle fracture with a cortical plate and screws. The bones are osteopenic. There is a healing fracture of the distal right clavicle. Deformity of the right lateral mid to lower ribs favor healing/healed fractures. IMPRESSION: 1. No acute fracture or dislocation within the right humerus. 2. Healing distal right clavicle fracture. 3. Healing/healed right mid to lower rib fractures. Electronically signed by: Gerald Cee M.D. 04/13/2017 6:24 PM Dictated Date/Time: 04/13/2017 6:21 PM Consultations: nephrology Medication Reconciliation New Medications: Cholecalciferol (Vitamin D3) 2,000 Unit Cap 1 CAP PO DAILY for 30 Days, #30 CAP 3 Refills Cefuroxime Axetil (Cefuroxime Axetil) 500 Mg Tab 500 MG PO BID, #6 TAB Cyanocobalamin (Vitamin B-12) 500 Mcg Tab 1000 MCG PO QAM, #30 TAB Ergocalciferol (Vitamin D 83422 Unit) 50,000 Unit Cap 71030 INTERUNIT PO Q7D@0900, #12 CAP Fludrocortisone Acetate (Florinef) 0.1 Mg Tab 0.1 MG PO QAM, #30 TAB Folic Acid (Folic Acid) 1 Mg Tab 1 MG PO QAM, #30 TAB Hydrocortisone (Cortef) 10 Mg Tab 30 MG PO BID, #60 TAB Multiple Vitamin (Daily-Matthew) 1 Tab Tab 1 TAB PO QAM, #30 TAB Ranitidine HCl (Ranitidine HCl) 150 Mg Tab 150 MG PO BID, #60 TAB Sodium Chloride (Sodium Chloride) 1 Gm Tab 1 GM PO BID, #60 TAB Thiamine HCl (Vitamin B-1) 100 Mg Tab 100 MG PO QAM, #30 TAB [Boost] () 1 CAN LIQD 1 CAN PO TID, #90 CAN Discontinued Medications: Hydrochlorothiazide (Hctz) 25 Mg Tab 1 TAB PO DAILY for 30 Days, #30 TAB 5 Refills Discharge Exam Physical Exam: General Appearance: no apparent distress Eyes: EOMI ENT: hearing grossly normal Neck: trachea midline Respiratory/Chest: no respiratory distress, no accessory muscle use Extremities: normal inspection Neurologic/Psychiatric: tuck pointer II-XII nml as tested, alert, normal mood/affect Hospital Course 56-year-old female with marked hyponatremia hypokalemia hypomagnesemia concern for alcohol abuse Adrenal Insufficiency: Unknown Etiology - Stim test supports this finding - ACTH 14 - outpatient endocrine follow up - Hydrocortisone 30 mg BID and will taper to 15 mg AM and 5 mg PM over time - under guidance of PCP and/or endocrine - fludrocortisone 0.1mg daily -- ongoing dosing per PCP and endocrine - Continue to monitor electrolytes as outpt Fluid and Electrolyte Imbalance - Dehydration and severe protein calorie malnutrition - 120+ Unintentional Weight Loss/Dysphagia - Hyponatremia, hypomagnesemia, and hypokalemia - likely due to adrenal insufficiency, ETOH use and malnutrition - [facility] CT of chest and abd/pelvis - no findings concerning for malignancy - should be brought up to date on cancer screenings for completeness - salt tabs for now since she's so deficient on everything; over time as she has adrenal axis corrected longer and becomes more nutritionally sound, then hopefully can wean Pneumonitis/Aspiration and UTI (Gram Neg): - finish course of abx Bilateral Conjunctivitis: IMPROVING - Gentamicin gtt TID was dosed inpatient, no need for ongoing treatment ETOH Use with Possible Gastritis: - expressly emphasized no further EtOH - zantac bid for now - wean over time - thiamine, folate, MVI, nutritional support Pancytopenia: STABLE - Continue to monitor - likely in setting of ETOH Use vitamin D deficiency and (strongly presumed) osteoporosis -replace D as above, repeat levels in ~3 months, DEXA/osteoporosis management otherwise by PCP hip fracture -seems to have been from a fall at home - appears actually healing and without much pain, she is ambulatory -rec'd outpatient ortho f/u for ongoing healing -osteoporosis management -HEAVILY emphasized safety for pt - any fall could be catastrophic w her current state of frailty DVT Prophylaxis: Lovenox 40 mg SC daily utilized while here Disposition: - PT/OT - was recommending rehab vs home pending on progress - pt did not want rehab, showed progress, stable for home today. f/u PCP closely, serial labs as outpt; f/u endocrinology as soon as can be arranged, f/u orthopedic surgery regarding hip fx healing Total Time Spent: Greater than 30 minutes This includes examination of the patient, discharge planning, medication reconciliation, and communication with other providers. Discharge Instructions Please refer to the electronic Patient Visit Report (Discharge Instructions) for additional information. Additional Copies To Darian Lpoez D.O.; Josue Catalan M.D.
== END 2017-04-17 16:36 | disposition home or self-care (01) | DRG 643 ==
LOC: C.EDB 10:06 → C.2T 12:56 → ENRESERV 13:19 → C.MED 04-14 18:28
PROVIDERS: ADMIT Internal Medicine; ATTEND Family Medicine
DX: E27.40 Unspecified adrenocortical insufficiency (principal); J69.0 Pneumonitis due to inhalation of food and vomit; E43 Unspecified severe protein-calorie malnutrition; S72.111A Displaced fracture of greater trochanter of right femur, initial encounter for closed fracture; E87.1 Hypo-osmolality and hyponatremia; N39.0 Urinary tract infection, site not specified; D61.818 Other pancytopenia; E87.6 Hypokalemia; E83.42 Hypomagnesemia; B96.89 Other specified bacterial agents as the cause of diseases classified elsewhere; H10.9 Unspecified conjunctivitis; K29.20 Alcoholic gastritis without bleeding; E55.9 Vitamin D deficiency, unspecified; M81.0 Age-related osteoporosis without current pathological fracture; F10.10 Alcohol abuse, uncomplicated; F17.200 Nicotine dependence, unspecified, uncomplicated; Z51.81 Encounter for therapeutic drug level monitoring; Z79.899 Other long term (current) drug therapy; Z91.81 History of falling; Z83.3 Family history of diabetes mellitus; Z82.49 Family history of ischemic heart disease and other diseases of the circulatory system; W19.XXXA Unspecified fall, initial encounter; Y92.009 Unspecified place in unspecified non-institutional (private) residence as the place of occurrence of the external cause; Y99.8 Other external cause status

== ENCOUNTER 2017-04-29 10:40 | Inpatient (IN) | payer OTHER ==
[~2017-04-29] VITALS: Ht 167.6 cm; Wt 66.9 kg
[~2017-04-29 10:40] MED LIST changes: +Boost PO; +CEFU1TAB35 PO; +CHOL2000 PO; +ERGO500011 PO; +FLR/1 PO; +FLV1 PO; +HYD10 PO; -LRT5 PO; +MULT-890 PO; +SDMC1 PO; +THM100 PO; +VTMB12 PO; +ZNT150 PO
--- NOTE | 2017-04-29 11:29 | EMERGENCY ROOM VISIT NOTE ---
History Report prepared by Miguel: Caren Caceres Under the Supervision of: Dr. Mao Mata M.D. First contact with patient: 10:51 Chief Complaint: ABNORMAL LABS Stated Complaint: REF BY DR-ABNORMAL LABS History of Present Illness The patient is a 56 year old female who presents to the Emergency Room for evaluation of low potassium levels at 2.02. She notes her blood was drawn yesterday and her PCP notified her to come into the ED for evaluation. She notes feeling fatigue.She notes recently visiting the ED for anemia. She denies receiving a blood transfusion. She denies chest pain, shortness of breath, nausea, vomiting, diarrhea, or congestion. She notes significant weight loss over the last few months and currently weighs 112 pounds, which she notes is abnormal for her. She reports taking a multivitamin daily. 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 Review of Systems See HPI for pertinent positives and negatives. A total of ten systems were reviewed and were otherwise negative. Past Medical & Surgical Medical Problems: (1) Anemia (2) Hypokalemia (3) hypokalemia an dhypomag from adrenal insufficiency (4) hypokalemia an dhypomag from adrenal insufficiency (5) Hypomagnesemia (6) Hyponatremia (7) Hypotension Surgical Problems: (1) S/P section Family History Cancer Diabetes mellitus Heart disease Hypertension Kidney disease Lung disease Social History Smoking Status: Former Smoker Alcohol Use: occasionally Drug Use: none Marital Status: in relationship Housing Status: lives with significant other Occupation Status: unemployed Current/Historical Medications Scheduled Cholecalciferol (Vitamin D3), 1 CAP PO DAILY Cyanocobalamin (Vitamin B-12), 1,000 MCG PO QAM Ergocalciferol (Vitamin D 37273 Unit), 50,000 INTERUNIT PO Q7D@0900 Fludrocortisone Acetate (Florinef), 0.1 MG PO QAM Folic Acid (Folic Acid), 1 MG PO QAM Hydrocortisone (Cortef), 30 MG PO BID Multiple Vitamin (Daily-Matthew), 1 TAB PO QAM Ranitidine HCl (Ranitidine HCl), 150 MG PO BID Sodium Chloride (Sodium Chloride), 1 GM PO BID Thiamine HCl (Vitamin B-1), 100 MG PO QAM [Boost], 1 CAN PO TID Allergies Coded Allergies: Penicillins (Verified Allergy, Mild, rash, 04/29/17) Physical Exam Vital Signs Date Time Temp Pulse Resp B/P (MAP) Pulse Ox O2 Delivery O2 Flow Rate FiO2 04/29/17 12:44 84 20 150/111 96 Room Air 04/29/17 11:14 91 04/29/17 10:44 37.0 101 18 144/84 97 Room Air Physical Exam GENERAL: Awake, alert, well-appearing, in no distress HENT: Normocephalic, atraumatic. Oropharynx shows dry cracked mucus membranes. Negative Chvostek's sign. EYES: Normal conjunctiva. Sclera non-icteric. NECK: Supple. No nuchal rigidity. FROM. No JVD. RESPIRATORY: Clear to auscultation. CARDIAC: Regular rate, normal rhythm. Extremities warm and well perfused. Pulses equal. ABDOMEN: Soft, non-distended. No tenderness to palpation. No rebound or guarding. No masses. RECTAL: Deferred. MUSCULOSKELETAL: Chest examination reveals no tenderness. The back is symmetrical on inspection without obvious abnormality. There is no CVA tenderness to palpation. No joint edema. LOWER EXTREMITIES: Calves are equal size bilaterally and non-tender. No edema. No discoloration. NEURO: Normal sensorium. No sensory or motor deficits noted. SKIN: No rash or jaundice noted. Medical Decision & Procedures ER Provider Diagnostic Interpretation: Radiology results as stated below per my review and radiologist interpretation: CHEST ONE VIEW PORTABLE CLINICAL HISTORY: Bilateral lower extremity swelling. COMPARISON STUDY: Chest radiograph April 13, [address] April 15, 2017. FINDINGS: Left humeral internal fixation and bilateral clavicular internal fixations are incidentally noted. Cardiac size is normal. There is no pneumothorax. There is a trace right pleural effusion. There are multiple old bilateral rib fractures as well as multiple subacute right-sided rib fractures, several of which are mildly displaced. There is no evidence of pulmonary edema. Linear left basilar opacity is suggestive of atelectasis. IMPRESSION: 1. Trace right pleural effusion. 2. No evidence of pulmonary edema. 3. No change in multiple subacute right-sided rib fractures, several of which are mildly displaced. No pneumothorax. Electronically signed by: Gigi Dia M.D. 04/29/2017 11:29 AM Dictated Date/Time: 04/29/2017 11:27 AM Laboratory Results 04/29/17 11:15 Red Blood Count 3.32, Mean Corpuscular Volume 104.5, Mean Corpuscular Hemoglobin 35.5, Mean Corpuscular Hemoglobin Concent 34.0, Mean Platelet Volume 9.3, Neutrophils (%) (Auto) 57.9, Lymphocytes (%) (Auto) 28.6, Monocytes (%) ( Auto) 12.5, Eosinophils (%) (Auto) 0.5, Basophils (%) (Auto) 0.2, Neutrophils # (Auto) 3.85, Lymphocytes # (Auto) 1.90, Monocytes # (Auto) 0.83, Eosinophils # ( Auto) 0.03, Basophils # (Auto) 0.01 Test 04/29/17 11:15 White Blood Count 6.64 K/uL (4.8-10.8) Red Blood Count 3.32 M/uL (4.2-5.4) Hemoglobin 11.8 g/dL (12.0-16.0) Hematocrit 34.7 % (37-47) Mean Corpuscular Volume 104.5 fL (80-100) Mean Corpuscular Hemoglobin 35.5 pg (25-34) Mean Corpuscular Hemoglobin Concent 34.0 g/dl (32-36) Platelet Count 221 K/uL (130-400) Mean Platelet Volume 9.3 fL (7.4-10.4) Neutrophils (%) (Auto) 57.9 % Lymphocytes (%) (Auto) 28.6 % Monocytes (%) (Auto) 12.5 % Eosinophils (%) (Auto) 0.5 % Basophils (%) (Auto) 0.2 % Neutrophils # (Auto) 3.85 K/uL (1.4-6.5) Lymphocytes # (Auto) 1.90 K/uL (1.2-3.4) Monocytes # (Auto) 0.83 K/uL (0.11-0.59) Eosinophils # (Auto) 0.03 K/uL (0-0.5) Basophils # (Auto) 0.01 K/uL (0-0.2) RDW Standard Deviation 58.4 fL (36.4-46.3) RDW Coefficient of Variation 15.4 % (11.5-14.5) Immature Granulocyte % (Auto) 0.3 % Immature Granulocyte # (Auto) 0.02 K/uL (0.00-0.02) Total Bilirubin 0.4 mg/dl (0.2-1) Direct Bilirubin 0.1 mg/dl (0-0.2) Aspartate Amino Transf (AST/SGOT) 16 U/L (15-37) Alanine Aminotransferase (ALT/SGPT) 18 U/L (12-78) Alkaline Phosphatase 88 U/L (45-117) Troponin I < 0.015 ng/ml (0-0.045) Pro-B-Type Natriuretic Peptide 1314 pg/ml (0-900) Total Protein 6.3 gm/dl (6.4-8.2) Albumin 2.7 gm/dl (3.4-5.0) Lipase 191 U/L (73-393) Laboratory results reviewed by me Medications Administered Medications (Trade) Dose Ordered Sig/Kevin Route Start Time Stop Time Status Last Admin Dose Admin Sodium Chloride 1,000 ml @ 250 mls/hr Q4H STAT IV 04/29/17 12:14 04/29/17 15:35 DC 04/29/17 12:36 250 MLS/HR Magnesium Sulfate (Magnesium Sulfate) 2 gm NOW STAT IV 04/29/17 12:14 04/29/17 12:17 DC 04/29/17 12:36 2 GM Potassium Chloride (Klor-Con M10) 40 meq NOW STAT PO 04/29/17 12:14 04/29/17 12:17 DC 04/29/17 12:36 40 MEQ Potassium Chloride 10 meq/ Prmx 100 ml @ 100 mls/hr Q1H IV 04/29/17 12:30 04/29/17 16:29 DC 04/29/17 15:55 100 MLS/HR ECG Indication: other (electrolyte abnormaties) Rhythm: normal sinus (91) Findings: no acute ischemic change ED Course 1051: The patient was evaluated in room C5. A complete history and physical exam was performed. 1241: I reassessed the patient at this time. She is feeling better and resting comfortably. 1243: I spoke with Dr. Deleon, hospitalist. We discussed the patients case. The patient will be evaluated by the [facility] for further management. Medical Decision I reviewed the patient's past medical history, medications, and the nursing notes as described above. Differential diagnoses: electrolyte abnormality, dehydration, and adrenal insufficiency. The patient is a 56 y/o woman who presents to the ED after being called about having low potassium on outpatient lab work after being discharged recent for hyponatremia, hypokalemia, and hypomagnesium per HPI. On arrival the patient is in NAD, AFVSS. Labs today confirm potassium to 2.1 and Mg 1.6. Patient ordered for KCL 40meq IV and 40meq PO and well as 2g Mg. EKG unremarkable. Given critical electrolyte abnormalities meets criteria for admission. Case d/w Dr. Deleon, [facility] hospitalist who will admit the patient for further management. Medication Reconcilliation Current Medication List: was personally reviewed by me Blood Pressure Screening Patient's blood pressure: Elevated blood pressure The patient will be evaluated for further management. Consults Time Called: 1241 Consulting Physician: Dr. Deleon, hospitalist Returned Call: [address] Deleon, hospitalist. We discussed the patients case. The patient will be evaluated by the [facility] for further management. Impression Primary Impression: Hypokalemia Additional Impression: Hypomagnesemia Scribe Attestation The scribe's documentation has been prepared under my direction and personally reviewed by me in its entirety. I confirm that the note above accurately reflects all work, treatment, procedures, and medical decision making performed by me. Departure Information Dispostion Being Evaluated By Hospitalist Referrals No Doctor, Assigned (PCP) Patient Instructions My [facility] Health Problem Qualifiers
[2017-04-29 11:37] LABS: BASO % 0.2 %; BASO ABS # 0.01 K/uL (0-0.2); COMPLETE YES; EOS % 0.5 %; HEMATOCRIT 34.7 % (37-47); IG% 0.3 %; LYMPH % 28.6 %; MEAN CELL VOLUME 104.5 fL (80-100); MEAN CORPUSCULAR HEMOGLOBIN 35.5 pg (25-34); MEAN PLATELET VOLUME 9.3 fL (7.4-10.4); MONO % 12.5 %; NEUT % 57.9 %; PLATELET COUNT 221 K/uL (130-400); RED BLOOD COUNT 3.32 M/uL (4.2-5.4); WHITE BLOOD COUNT 6.64 K/uL (4.8-10.8)
[2017-04-29 11:59] LABS: ALT/SGPT 18 U/L (12-78); AST/SGOT 16 U/L (15-37); BLOOD UREA NITROGEN 7 mg/dl (7-18); BUN/CREATININE RATIO 12.5 (10-20); CALCIUM 8.1 mg/dl (8.5-10.1); CARBON DIOXIDE 39 mmol/L (21-32); CHLORIDE 98 mmol/L (98-107); CREATININE 0.57 mg/dl (0.60-1.20); GLUCOSE 99 mg/dl (70-99); MAGNESIUM 1.6 mg/dl (1.8-2.4); POTASSIUM 2.1 mmol/L (3.5-5.1); SODIUM 139 mmol/L (136-145)
[2017-04-29 12:00] LABS: ALKALINE PHOSPHATASE 88 U/L (45-117); PHOSPHORUS 2.9 mg/dl (2.5-4.9)
[2017-04-29] MEDS ORDERED: SODIUM CHLORIDE 0.9% 1000ML 1,000 ML IV STA (12:14)
[2017-04-29] MEDS ORDERED: MAGNESIUM SULFATE 1GM / D5W 1 GM BAG IV STA (12:14)
[2017-04-29] MEDS ORDERED: POTASSIUM CHLORIDE 10 MEQ / 100ML WTR IV STA (12:14)
[2017-04-29] MEDS ORDERED: POTASSIUM CHLORIDE 10 MEQ TABCR PO STA (12:14)
[2017-04-29] MEDS: POTASSIUM CHLR 10MEQ / WTR IV SCH ×4 (12:36→15:55)
[2017-04-29] MEDS ORDERED: MAGNESIUM HYDROXIDE SUSP 30 ML UDC PO PRN (13:15)
[2017-04-29] MEDS ORDERED: ALUMINUM/MAGNESIUM/SIMETH (MAALOX MAX) 30 ML UDC PO PRN (13:15)
[2017-04-29] MEDS ORDERED: ONDANSETRON INJ 2 MG/ML 2 ML VIAL IV PRN (13:15)
[2017-04-29] MEDS ORDERED: HydrALAZINE HCL 20 MG/ML VIAL IV. PRN (13:15)
[2017-04-29] MEDS ORDERED: ACETAMINOPHEN 325 MG TAB PO PRN (13:15)
[2017-04-29] MEDS ORDERED: POLYETHYLENE (MIRALAX) 17 GM PACK PO PRN (13:15)
[2017-04-29] MEDS ORDERED: ZOLPIDEM TARTRATE 5 MG TAB PO PRN (13:15)
--- NOTE | 2017-04-29 13:29 | History and Physical ---
History & Physical Date of Service Apr 29, 2017. History & Physical hypokalemia and hypomag from adrenal insufficiency [id number]
[2017-04-29] MEDS ORDERED: HYDROCORTISONE SOD SUCCINATE 100 MG/2 ML VIAL IV STA (13:44)
--- NOTE | 2017-04-29 14:06 | HISTORY & PHYSICAL EXAMINATION ---
DATE OF ADMISSION: 04/29/2017 This is level 3 inpatient admission, 35 minutes. CHIEF COMPLAINT: Abnormal labs and generalized weakness. HISTORY OF PRESENT ILLNESS: The patient is a 56-year-old white female with recently diagnosed of adrenal insufficiency, hyponatremia, history of gastritis, pancytopenia, vitamin D deficiency, hip fracture, coming into the hospital Emergency Department because of the above chief complaint. The patient was admitted to this hospital during 04/13/2017. She was discharged on 04/17/2017. iin last admission she was with hyponatremia and had stimulation test which support adrenal insufficiency with ACTH was 14, but etiology was unknown. The patient was discharged home with oral hydrocortisone 30 mg p.o. b.i.d. with tapering dose and follow up with PCP. She is supposed to have outpatient followup with fingernail former, however she has not seen endocrine yet. Today, she came into the Emergency Room because of severe low potassium levels associated with general fatigue, but eating very good, has good appetite , but has lower extremity swelling at least 2-3+. Reported has significant weight loss in the last few months. Denied fever or chills; denied cough, sputum, shortness of breath, palpitation, denied chest pain. Denied dizziness. Denies thirsty, nausea, vomiting, abdominal pain, diarrhea, or constipation. Denied dysuria, urgency, polyuria. Denied facial droop, slurry speeches or local weakness. In the Emergency Room, she was found to have significant hypokalemia, potassium 2.1, magnesium was 1.6. I was called to have the admission. The patient confirmed me the above information. ALLERGIES: PENICILLIN. PAST MEDICAL HISTORY: Include adrenal insufficiency, anemia, hypokalemia, hypomagnesemia, hyponatremia, hypotension. PAST SURGICAL HISTORY: . FAMILY HISTORY: Include cancer, diabetic, heart disease, hypertension, kidney disease, lung disease. SOCIAL HISTORY: History of smoking, still smoking today. Social alcohol intake. Lives with significant other. The patient is unemployed. CURRENT MEDICATIONS: Taking include cephalexin 500 mg p.o. b.i.d., vitamin D3 one tab p.o. daily, vitamin B12 1000 mcg p.o. q.a.m., vitamin D 50,000 international units p.o. q. 7 days, Florinef 0.1 mg p.o. q.a.m., folic acid 1 mg p.o. q.a.m., Cortef 30 mg p.o. b.i.d., multiple vitamin 1 tab p.o. q.a.m., ranitidine 150 mg p.o. b.i.d., sodium chloride 1 gram p.o. b.i.d., thiamine 100 mg p.o. q.a.m., nutritional Boost 1 can p.o. b.i.d. REVIEW OF SYSTEMS: Please see HPI, otherwise 14 points organ system review were negative. PHYSICAL EXAMINATION: VITAL SIGNS: Temperature is 37, pulse 101, respiration rate 18, blood pressure 144/84, pulse ox was 97% in room air. Currently, blood pressure is 150/111. GENERAL: The patient is a white female, look much older than her ages. Awake, alert and orientated playing cellphone. HEAD: Normocephalic. EYES: Pupils equal, round responds to light. Mucous membrane mild dry. NECK: Supple. Thyroid no enlargement. Bilateral has symmetric collarbone scar from her history of collarbone clavicle fracture. There was symmetric bilateral neck base emphysema, which is not new. LUNGS: Decreased breathing sounds. There was no wheezing, rhonchi or crackles. ABDOMEN: Soft, nontender. Bowel sound was positive. No mass, no organomegaly. EXTREMITIES: Lower extremities 3+ swelling. Homans sign was negative. Calf was nontender. EXTREMITIES: There was no clubbing, no cyanosis. NEUROLOGICAL EVALUATION: Cranial nerve II-XII was intact. There was no local deficits. SKIN: Has no rashes. LABORATORY STUDIES: WBC 6, hemoglobin 11, platelet 221. Potassium 2.1. Sodium 139, BUN 7, creatinine 0.5, calcium 8.1, phosphorus 2.9, magnesium 1.6. BNP 340. Lipase 191. IMAGING STUDIES: Chest x-ray was done today which shows trace right pleural effusion. No evidence of pulmonary edema. No changes multiple subacute right-sided rib fracture. No pneumothorax. EKG low voltage QRS, normal sinus rhythm. No obvious U-wave. There was no recent echocardiogram. ASSESSMENT AND PLAN: A 56-year-old white female with the conditions below. 1. Severe hypomagnesemia and hypokalemia likely secondary to adrenal insufficiency. Recently diagnosed with adrenal insufficiency with hyponatremia, was on tapering dose of steroid, but she has not seen by endocrinology yet. 2. Accelerated hypertension. 3. Severe bilateral lower extremity swelling with elevated BNP. 4. Tobacco abuse disorder. 5. Chronic anemia. 6. Vitamin B12 deficiency. PLAN: Like I mentioned in the above, the patient has significant hypokalemia and hypomagnesemia, likely secondary to adrenal deficiency. The patient was on tapering dose of steroid, and on medicine of Florinef. Currently, patient's blood pressure is stable, no tachycardia. There was no significant thirsty, hemodynamically stable. I do not believe she has any acute adrenal insufficiency going on. However, I will give hydrocortisone IV q. 8 hours with 100 mg, continue Florinef, will aggressively replace magnesium, potassium, and closely monitor electrolytes. The patient has accelerated hypertension, we will give hydralazine. The patient has lower extremity swelling and elevated BNP. We will check echocardiogram and then go from there. GI and DVT prophylaxis is covered. I feel that possible need to talk to fingernail former and to define more detail the care plan, and also the patient need to be seen by fingernail former as soon as possible after discharge. GI and DVt px ordered MTDD
[2017-04-29 14:30] VITALS: O2SAT 96; Ht 167.6 cm; Wt 66.9 kg
[2017-04-29 14:36] LABS: BUN/CREATININE RATIO 14.2 (10-20); CALCIUM 7.8 mg/dl (8.5-10.1); CREATININE 0.48 mg/dl (0.60-1.20); POTASSIUM 2.3 mmol/L (3.5-5.1)
[2017-04-29 15:30] VITALS: BP 154/88; PULSE 85; TEMP 37.2; O2SAT 95
[2017-04-29 16:15] LABS: URINE APPEARANCE CLEAR (CLEAR); URINE BILIRUBIN NEG (NEG); URINE COLOR YELLOW; URINE NITRITE NEG (NEG); URINE PH 8.5 (4.5-7.5); URINE SPECIFIC GRAVITY 1.012 (1.000-1.030); UROBILINOGEN NEG (NEG); ZZUR CULT IF INDIC CLEAN CATCH NO
[2017-04-29 16:16] LABS: MANUAL MICROSCOPIC REQUIRED? NO; REVIEW REQ? NO
[2017-04-29 16:33] LABS: MAGNESIUM 2.2 mg/dl (1.8-2.4); PHOSPHORUS 2.3 mg/dl (2.5-4.9)
[2017-04-29 20:18] VITALS: O2SAT 95
[2017-04-29] MEDS: RANITIDINE HCL 150 MG TAB PO SCH (20:36)
[2017-04-29] MEDS: ENOXAPARIN 40 MG/0.4 ML SYR SC SCH (20:36)
[2017-04-29] MEDS: SODIUM CHLORIDE 1 GM TAB PO SCH (20:37)
[2017-04-29] MEDS: BOOST VANILLA PO SCH ×2 (20:40)
[2017-04-29] MEDS: HYDROCORTISONE IV 100 MG in SYRINGE 0 ML IV SCH (21:38)
[2017-04-29] MEDS ORDERED: NURSING DECISION MEDICATION ORDER SCH (23:45)
[2017-04-30] VITALS (10 sets, daily range): BP systolic 136–185; BP diastolic 72–93; PULSE 58–109; TEMP 36.3–37.7; O2SAT 93–95
[2017-04-30] MEDS ORDERED: COUGH DROP (SUGAR FREE) LOZ 24 LOZ/1 BOX PO PRN (00:30)
[2017-04-30] MEDS: HYDROCORTISONE IV 100 MG in SYRINGE 0 ML IV SCH ×3 (06:01→21:05)
[2017-04-30 06:40] LABS: BUN/CREATININE RATIO 17.5 (10-20); CREATININE 0.4 mg/dl (0.60-1.20); PHOSPHORUS 2.5 mg/dl (2.5-4.9); POTASSIUM 2.3 mmol/L (3.5-5.1)
[2017-04-30] MEDS: BOOST VANILLA PO SCH ×6 (07:49→20:10)
[2017-04-30] MEDS: FLUDROCORTISONE ACETATE 0.1 MG TAB PO SCH (07:49)
[2017-04-30] MEDS: SODIUM CHLORIDE 1 GM TAB PO SCH ×2 (07:49→21:03)
[2017-04-30] MEDS: MULTIVITAMIN TAB PO SCH (07:49)
[2017-04-30] MEDS: THIAMINE HCL 100 MG TAB PO SCH (07:49)
[2017-04-30] MEDS: CHOLECALCIFEROL 1000 INTER.UNIT TAB PO SCH (07:50)
[2017-04-30] MEDS: CYANOCOBALAMIN 500 MCG TAB (VIT B-12) PO SCH (07:50)
[2017-04-30] MEDS: NICOTINE 14 MG/24 HR TDSY TD SCH (07:50)
[2017-04-30] MEDS: RANITIDINE HCL 150 MG TAB PO SCH ×2 (07:50→21:03)
[2017-04-30] MEDS ORDERED: POTASSIUM CHLORIDE 20 MEQ TABCR PO ONE ×2 (08:53→12:00)
[2017-04-30] MEDS ORDERED: PERFLUTREN LIPID MICROSPHERE (DEFINITY) IV ONE (08:56)
[2017-04-30] MEDS: POTASSIUM CHLR 10 MEQ / WTR 10 MEQ in PREMIXED WATER 100 ML IV SCH ×4 (09:29→14:49)
[2017-04-30 14:30] LABS: BUN/CREATININE RATIO 12.1 (10-20); CREATININE 0.71 mg/dl (0.60-1.20); MAGNESIUM 1.9 mg/dl (1.8-2.4)
[2017-04-30] MEDS ORDERED: POTASSIUM CHLORIDE 10 MEQ TABCR PO ONE ×2 (16:00→20:00)
--- NOTE | 2017-04-30 16:02 | Hospitalist Progress Note ---
Hospitalist Progress Note Date of Service Apr 30, 2017. (Marjan Torres CRNP) Subjective Pt evaluation today including: conversation w/ patient, physical exam, chart review, lab review, review of inpatient medication list Ms. Oden is feeling well however she did express that she has been dealing with depression over the last few months due to her mother's and became very tearful. Otherwise she has no physical complaints and did not realize her electrolytes were off when she was called by her outpatient provider about her blood work. ROS Constitutional: no chills, aches, sweats or fever Respiratory: no sob,cough, sputum, or wheezing Cardiac: no chest pain, palpitations, edema, orthopnea or lightheadedness GI: no abdominal pain, nausea, vomiting, diarrhea or constipation : no dysuria or hesitancy Extremities: no joint pain or weakness Skin: no rash All Other Systems: Reviewed and Negative (Marjan Torres CRNP) Medications Medications Administered Medications (Trade) Dose Ordered Sig/Kevin Route Start Time Stop Time Status Last Admin Dose Admin Sodium Chloride 1,000 ml @ 250 mls/hr Q4H STAT IV 04/29/17 12:14 04/29/17 15:35 DC 04/29/17 12:36 250 MLS/HR Magnesium Sulfate (Magnesium Sulfate) 2 gm NOW STAT IV 04/29/17 12:14 04/29/17 12:17 DC 04/29/17 12:36 2 GM Potassium Chloride (Klor-Con M10) 40 meq NOW STAT PO 04/29/17 12:14 04/29/17 12:17 DC 04/29/17 12:36 40 MEQ Potassium Chloride 10 meq/ Prmx 100 ml @ 100 mls/hr Q1H IV 04/29/17 12:30 04/29/17 16:29 DC 04/29/17 15:55 100 MLS/HR Enoxaparin Sodium (Lovenox Inj) 40 mg HS SC 04/29/17 21:00 05/29/17 20:59 04/29/17 20:36 40 MG Hydrocortisone Sodium Succinate (Solu-Cortef IV) 100 mg NOW STAT IV 04/29/17 13:44 04/29/17 13:45 DC 04/29/17 14:04 100 MG Hydrocortisone Sodium Succinate 100 mg/Syringe 2 ml @ 4 mls/min Q8H IV 04/29/17 22:00 05/29/17 21:59 04/30/17 13:31 4 MLS/MIN Cyanocobalamin (Vitamin B-12 Tab) 1,000 mcg QAM PO 04/30/17 09:00 05/30/17 08:59 04/30/17 07:50 1,000 MCG Fludrocortisone Acetate (Florinef Tab) 0.1 mg QAM PO 04/30/17 09:00 05/30/17 08:59 04/30/17 07:49 0.1 MG Folic Acid (Folvite Tab) 1 mg QAM PO 04/30/17 09:00 05/30/17 08:59 04/30/17 07:50 1 MG Multivitamins (Multivitamin Tab) 1 tab QAM PO 04/30/17 09:00 05/30/17 08:59 04/30/17 07:49 1 TAB Ranitidine HCl (zANTac TAB) 150 mg BID PO 04/29/17 21:00 05/29/17 20:59 04/30/17 07:50 150 MG Sodium Chloride (Sodium Chloride Tab) 1 gm BID PO 04/29/17 21:00 05/29/17 20:59 04/30/17 07:49 1 GM Thiamine HCl (Vitamin B-1 Tab) 100 mg QAM PO 04/30/17 09:00 05/30/17 08:59 04/30/17 07:49 100 MG Cholecalciferol (Vitamin D Tab) 2,000 inter.unit DAILY PO 04/30/17 09:00 05/30/17 08:59 04/30/17 07:50 2,000 INTER.UNIT Enteral Nutritional Formula (Boost) 1 can TID PO 04/29/17 21:00 05/29/17 20:59 04/30/17 13:37 1 CAN Nicotine (Nicoderm Cq 14MG Patch) 1 patch QAM TD 04/30/17 09:00 05/30/17 08:59 04/30/17 07:50 1 PATCH Menthol (Nice Amy) 1 amy PRN PRN PO 04/30/17 00:30 05/30/17 00:29 04/30/17 00:26 1 AMY Potassium Chloride (Klor-Con Tab) 40 meq ONE ONCE PO 04/30/17 12:00 04/30/17 12:01 DC 04/30/17 12:32 40 MEQ Potassium Chloride (Klor-Con Tab) 40 meq 0853 ONCE PO 04/30/17 08:53 04/30/17 09:11 DC 04/30/17 09:29 40 MEQ Potassium Chloride 10 meq/ Prmx 100 ml @ 100 mls/hr Q1H IV 04/30/17 10:00 04/30/17 13:59 DC 04/30/17 14:49 100 MLS/HR Perflutren Lipid Microsphere (Definity) 2 ml ONE ONCE IV 04/30/17 08:56 04/30/17 08:57 DC 04/30/17 08:57 2 ML (Marjan Torres CRNP) Objective Vital Signs Date Time Temp Pulse Resp B/P (MAP) Pulse Ox O2 Delivery O2 Flow Rate FiO2 04/30/17 12:30 37.7 85 18 162/93 (116) 93 Room Air 04/30/17 12:00 Room Air 04/30/17 08:00 Room Air 04/30/17 07:20 36.9 71 18 178/72 (107) 94 Room Air 04/30/17 04:00 Room Air 04/30/17 03:43 36.9 74 18 136/72 (93) 95 Room Air 04/30/17 00:02 36.8 58 16 149/72 (97) 93 Room Air 04/30/17 00:00 Room Air 04/29/17 20:18 95 Room Air (Marjan Torres CRNP) Physical Exam Notes: General: no distress Eyes: normal inspection, PERLL Respiratory: chest non tender, clear to auscultation, normal breath sounds, no respiratory distress, no accessory muscle use Cardiac: regular rate and rhythm, no rub or gallop, no murmur, no edema, no jvd GI/: active bowel sounds, no abd pain or tenderness, soft, non distended Extremities: normal range of motion, normal strength, non tender Neuro/Psych: alert and oriented x 3, normal mood and affect Skin: normal color, dry (Marjan Torres CRNP) Laboratory Results Last 24 Hours Test 04/29/17 15:55 04/29/17 16:00 04/30/17 05:41 12/6/17 13:51 Phosphorus Level 2.3 mg/dl 2.5 mg/dl Magnesium Level 2.2 mg/dl 1.9 mg/dl Urine Color YELLOW Urine Appearance CLEAR Urine pH 8.5 Urine Specific [place] 1.012 Urine Protein NEG Urine Glucose (UA) NEG Urine Ketones NEG Urine Occult Blood NEG Urine Nitrite NEG Urine Bilirubin NEG Urine Urobilinogen NEG Urine Leukocyte Esterase NEG Sodium Level 135 mmol/L 136 mmol/L Potassium Level 2.3 mmol/L 3.0 mmol/L Chloride Level 97 mmol/L 101 mmol/L Carbon Dioxide Level 34 mmol/L 32 mmol/L Anion Gap 4.0 mmol/L 3.0 mmol/L Blood Urea Nitrogen 7 mg/dl 9 mg/dl Creatinine 0.40 mg/dl 0.71 mg/dl Est Creatinine Clear Calc Drug Dose 148.8 ml/min 83.8 ml/min Estimated GFR () 135.9 111.1 Estimated GFR (Non- 117.3 95.9 BUN/Creatinine Ratio 17.5 12.1 Random Glucose 123 mg/dl 189 mg/dl Calcium Level 8.0 mg/dl 8.0 mg/dl (Marjan Torres .DUONG) Assessment and Plan Ms. Oden is a 56 year old woman here for abnormal labs. Pmhx adrenal insufficiency, anemia, hypokalemia,hypomagnesemia, hyponatremia, hypotension. Hypokalemia - 2.3 this morning - K+ replacement given - repeat labs this afternoon showed K + of 3.0 - further replacement given - prp am Adrenal insufficiency - continue hydrocortisone IV HTN - continue hydralazine Hyponatremia - continue sodium supplementation - Na normal today. Chronic anemia - Hgb stable Full code (Marjan Torres CRNP) [employer] Physician Supervision Note: I interviewed and examined the patient. Discussed with Marjan Torres PRIVATE WATCHMAN and agree with findings and plan as documented in the note. Any exceptions or clarifications are listed here: None Patient looks much better than my last interaction with her which was on admission from her previous stay. She has no focal complaints or problems she states that she does feel better than when she was here the first time and she was taking her medications as prescribed. Vitals are stable exam shows regular heart clear lungs normal bowel sounds and soft abdomen Persistent electrolyte deficiencies with concern for adrenal suppression. Continue to augment and potassium and magnesium continue consideration of steroid use with outpatient endocrine follow-up Documented By: Gonsalo Coe (Gonsalo Coe M.D.)
--- NOTE | 2017-04-30 17:26 | ECHOCARDIOGRAM REPORT ---
*NOTICE TO RECEIVING [employer] This information is strictly Confidential and protected under [place] law. [place] law prohibits you from making any further disclosure of this information unless further disclosure is expressly permitted by the written consent of the person to whom it pertains or is authorized by law. A general authorization for the release of medical or other information is not sufficient for this purpose. Hospital accepts no responsibility if the information is made available to any other person, INCLUDING THE PATIENT. Interpretation Summary * Name: YASHIRA VIEYRA Study Date: 04/30/2017 07:32 AM BP: 178/72 mmHg * Patient Location: [facility]\S\N285\S\1 HR: 71 * : 1960 (M/d/yyyy) Gender: Female Height: 65 in * Age: 56 yrs Ethnicity: CA Weight: 149 lb * Ordering Physician: Bryan Deleon * Performed By: Elsa Bloom RDCS * * Reason For Study: Congestive Heart Failure * BSA: 1.7 m2 * -- Conclusions -- * 1. Top-normal left ventricular size with normal systolic function. EF 55-60%. No regional wall motion abnormalities. No left ventricular hypertrophy. No significant diastolic dysfunction. * 2. There is mild mitral regurgitation. * 3. Mildly elevated right ventricular systolic pressure; 39 mmHg. * 4. No prior study available for comparison. Procedure Details * A complete two-dimensional transthoracic echocardiogram was performed (2D, M-mode, Doppler and color flow Doppler). * A contrast injection of Definity was performed to improve assessment of LV function. * Contrast was injected into an intravenous site in the left arm. * One vial of Definity ultrasound contrast was diluted in normal saline to a total volume of 10 ml. A total of '1' ml of solution was administered during imaging. * Lot # [id number] of Definity utilized for procedure. * Expiration date 1Dec18. * The attending nurse who injected the contrast agent was Karey Madrid RN. Left Ventricle * Top-normal left ventricular size with normal systolic function. EF 55-60%. No regional wall motion abnormalities. No left ventricular hypertrophy. No significant diastolic dysfunction. Right Ventricle * The right ventricle is normal in size and function. * The right ventricular systolic function is normal as assessed by tricuspid annular plane systolic excursion (TAPSE) (normal >1.5 cm). Atria * The left atrium is borderline dilated. * Right atrial size is normal. * There is no evidence of atrial septal defect, but resolution does not allow assessment for a patent foramen ovale. Mitral Valve * The mitral valve is grossly normal. * There is no mitral valve stenosis. * There is mild mitral regurgitation. Tricuspid Valve * The tricuspid valve is not well visualized, but is grossly normal. * There is no tricuspid stenosis. * There is trace tricuspid regurgitation. Aortic Valve * The aortic valve is not well visualized. * No hemodynamically significant valvular aortic stenosis. * There is no significant aortic regurgitation. Pulmonic Valve * The pulmonary valve is inadequately visualized, but the Doppler data is adequate for interpretation. * There is no pulmonic valvular stenosis. * There is no significant pulmonary regurgitation. Great Vessels * The aortic root is normal size. Pericardium/Pleural * There is no pericardial effusion. Great Vessels * Mildly dilated IVC with mildly reduced inspiratory collapse. MMode 2D Measurements and Calculations IVSd 0.95 cm IVSs 1.3 cm LVIDd 5.2 cm LVIDs 3.5 cm LVPWd 0.98 cm LVPWs 1.4 cm IVS/LVPW 0.97 FS 31.8 % EDV(Teich) 127.5 ml ESV(Teich) 51.6 ml EF(Teich) 59.5 % EDV(cubed) 137.8 ml ESV(cubed) 43.7 ml EF(cubed) 68.3 % % IVS thick 38.0 % % LVPW thick 41.4 % LV mass(C)d 184.2 grams LV mass(C)dI 105.5 grams/m\S\2 LV mass(C)s 165.5 grams LV mass(C)sI 94.8 grams/m\S\2 SV(Teich) 75.9 ml SI(Teich) 43.5 ml/m\S\2 SV(cubed) 94.1 ml SI(cubed) 53.9 ml/m\S\2 Ao root diam 3.0 cm Ao root area 6.9 cm\S\2 ACS 1.7 cm LA dimension 4.4 cm LA/Ao 1.5 LVAd ap4 28.4 cm\S\2 LVLd ap4 7.5 cm EDV(MOD-sp4) 94.3 ml EDV(sp4-el) 91.5 ml LVAs ap4 15.9 cm\S\2 LVLs ap4 6.2 cm ESV(MOD-sp4) 36.3 ml ESV(sp4-el) 34.5 ml EF(MOD-sp4) 61.5 % EF(sp4-el) 62.3 % LVAd ap2 30.3 cm\S\2 LVLd ap2 7.9 cm EDV(MOD-sp2) 100.0 ml EDV(sp2-el) 99.6 ml LVAs ap2 18.0 cm\S\2 LVLs ap2 6.9 cm ESV(MOD-sp2) 41.9 ml ESV(sp2-el) 40.1 ml EF(MOD-sp2) 58.1 % EF(sp2-el) 59.7 % LVLd %diff 2.3 % EDV(MOD-bp) 102.0 ml LVLs %diff 10.5 % ESV(MOD-bp) 37.2 ml EF(MOD-bp) 63.5 % SV(MOD-sp4) 58.0 ml SI(MOD-sp4) 33.2 ml/m\S\2 SV(MOD-sp2) 58.1 ml SI(MOD-sp2) 33.3 ml/m\S\2 SV(MOD-bp) 64.7 ml SI(MOD-bp) 37.1 ml/m\S\2 SV(sp4-el) 57.0 ml SI(sp4-el) 32.7 ml/m\S\2 SV(sp2-el) 59.5 ml SI(sp2-el) 34.1 ml/m\S\2 Doppler Measurements and Calculations MV E max keysha 114.9 cm/sec MV A max keysha 72.8 cm/sec MV E/A 1.6 MV dec time 0.16 sec Ao V2 max 126.3 cm/sec Ao max PG 6.4 mmHg Ao max PG (full) 2.3 mmHg LV V1 max PG 4.1 mmHg LV V1 max 100.8 cm/sec PA V2 max 79.4 cm/sec PA max PG 2.5 mmHg TR max keysha 280.4 cm/sec RVSP(TR) 39.4 mmHg RAP systole 8.0 mmHg
[2017-04-30] MEDS: ENOXAPARIN 40 MG/0.4 ML SYR SC SCH (21:04)
[2017-05-01] MEDS ORDERED: KETOROLAC TROMETHAMINE 30 MG/ML VIAL IV STA (00:23)
--- NOTE | 2017-05-01 00:24 | Progress Note ---
Progress Note Date of Service May 01, 2017. Progress Note RESIDENT NIGHT COVERAGE Called due to pt having an unwitnessed fall. RN reports the pt was ambulating to bathroom and slipped on sock, she then couldnt get herself up from the ground. Did not hit head or lose consciousness. She had mild knee pain initially but was comfortable once back in bed. Checked on pt around 1030PM, she reported feeling fine, was awake, alert, no head wounds or concerns for head trauma. She reported L groin pain, offered a heat pack to try to help. Was called again that she had worsening groin pain around 1220AM, mainly on L side. Provided a dose of Toradol x 1. 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
[2017-05-01 05:45] VITALS: BP 161/93; PULSE 99; TEMP 37.1; O2SAT 93
[2017-05-01 06:07] LABS: HEMATOCRIT 32.7 % (37-47); MEAN CELL VOLUME 104.8 fL (80-100); MEAN CORPUSCULAR HEMOGLOBIN 34.6 pg (25-34); MEAN PLATELET VOLUME 9.6 fL (7.4-10.4); PLATELET COUNT 206 K/uL (130-400); RED BLOOD COUNT 3.12 M/uL (4.2-5.4); WHITE BLOOD COUNT 10.95 K/uL (4.8-10.8)
[2017-05-01] MEDS: HYDROCORTISONE IV 100 MG in SYRINGE 0 ML IV SCH (06:07)
[2017-05-01 06:43] LABS: BUN/CREATININE RATIO 22.5 (10-20); CALCIUM 8.5 mg/dl (8.5-10.1); CREATININE 0.46 mg/dl (0.60-1.20); MAGNESIUM 1.9 mg/dl (1.8-2.4); POTASSIUM 3.7 mmol/L (3.5-5.1)
[2017-05-01 07:33] VITALS: BP 163/91; PULSE 84; TEMP 36.8; O2SAT 91
[2017-05-01] MEDS: FLUDROCORTISONE ACETATE 0.1 MG TAB PO SCH (07:55)
[2017-05-01] MEDS: RANITIDINE HCL 150 MG TAB PO SCH ×2 (07:55→16:53)
[2017-05-01] MEDS: THIAMINE HCL 100 MG TAB PO SCH (07:55)
[2017-05-01] MEDS: SODIUM CHLORIDE 1 GM TAB PO SCH ×2 (07:55→16:53)
[2017-05-01] MEDS: CYANOCOBALAMIN 500 MCG TAB (VIT B-12) PO SCH (07:56)
[2017-05-01] MEDS: CHOLECALCIFEROL 1000 INTER.UNIT TAB PO SCH (07:56)
[2017-05-01] MEDS: MULTIVITAMIN TAB PO SCH (07:56)
[2017-05-01] MEDS: NICOTINE 14 MG/24 HR TDSY TD SCH (07:56)
[2017-05-01] MEDS: BOOST VANILLA PO SCH ×4 (08:02→13:34)
[2017-05-01] MEDS ORDERED: POTASSIUM CHLORIDE 20 MEQ TABCR PO ONE (11:00)
[2017-05-01 11:42] VITALS: BP 158/89; PULSE 90; TEMP 36.8; O2SAT 93
[2017-05-01] MEDS ORDERED: NRV5 PO (14:22)
[2017-05-01] MEDS ORDERED: MCRK20 PO (14:22)
[2017-05-01] MEDS ORDERED: HYD10 PO ×2 (14:22)
--- NOTE | 2017-05-01 14:37 | Discharge Instructions ---
Discharge Instructions Date of Service May 01, 2017. Admission Reason for Admission: Hypokalemia And Hypomag From [employer]reanal Insufficienc Discharge Discharge Diagnosis / Problem: Hypokalemia and hypomagnesemia from adrenal insufficiency Discharge Goals Goal(s): Improve disease control Activity Recommendations Activity Limitations: resume your previous activity . Instructions / Follow-Up Instructions / Follow-Up Please have your blood drawn on Friday. Results will be sent to Dr. Lopez A referral was made for home health services Current Hospital Diet Patient's current hospital diet: Regular Diet Discharge Diet Recommended Diet: Regular Diet Procedures Procedures Performed: Chest x-ray Pending Studies Studies pending at discharge: no Medical Emergencies . Who to Call and When: Medical Emergencies: If at any time you feel your situation is an emergency, please call 911 immediately. . Non-Emergent Contact Non-Emergency issues call your: Primary Care Provider Call Non-Emergent contact if: you have any medication questions . Past History Medical & Surgical History: (1) hypokalemia an dhypomag from adrenal insufficiency (2) Hypertension . "Provider Documentation" section prepared by Marjan Torres. . VTE Core Measure Inpt VTE Proph given/why not?: SCD's
--- NOTE | 2017-05-01 15:36 | Discharge Summary ---
Discharge Summary Date of Service May 01, 2017. Discharge Summary Admission Date: Apr 29, 2017 at 13:12 Discharge Disposition: Home Principal Diagnosis: Hypokalemia and hypomagnesemia due to renal insufficiency Problems/Secondary Diagnoses: HTN Procedures: Chest Xray IMPRESSION: 1. Trace right pleural effusion. 2. No evidence of pulmonary edema. 3. No change in multiple subacute right-sided rib fractures, several of which are mildly displaced. No pneumothorax. Medication Reconciliation New Medications: Amlodipine Besylate (Amlodipine Besylate) 5 Mg Tab 5 MG PO DAILY for 30 Days, #30 TAB Hydrocortisone (Cortef) 10 Mg Tab 20 MG PO QAM for 30 Days, #60 TAB Hydrocortisone (Cortef) 10 Mg Tab 10 MG PO HS for 30 Days, #30 TAB Potassium Chloride (Klor-Con M20) 20 Meq Tabcr 40 MEQ PO BID for 30 Days, #120 TABS Continued Medications: Cholecalciferol (Vitamin D3) 2,000 Unit Cap 1 CAP PO DAILY for 30 Days, #30 CAP 3 Refills Cyanocobalamin (Vitamin B-12) 500 Mcg Tab 1000 MCG PO QAM, #30 TAB Ergocalciferol (Vitamin D 84937 Unit) 50,000 Unit Cap 78910 INTERUNIT PO Q7D@0900, #12 CAP Fludrocortisone Acetate (Florinef) 0.1 Mg Tab 0.1 MG PO QAM, #30 TAB Folic Acid (Folic Acid) 1 Mg Tab 1 MG PO QAM, #30 TAB Multiple Vitamin (Daily-Matthew) 1 Tab Tab 1 TAB PO QAM, #30 TAB Ranitidine HCl (Ranitidine HCl) 150 Mg Tab 150 MG PO BID, #60 TAB Sodium Chloride (Sodium Chloride) 1 Gm Tab 1 GM PO BID, #60 TAB Thiamine HCl (Vitamin B-1) 100 Mg Tab 100 MG PO QAM, #30 TAB [Boost] () 1 CAN LIQD 1 CAN PO TID, #90 CAN Discontinued Medications: Hydrocortisone (Cortef) 10 Mg Tab 30 MG PO BID, #60 TAB Discharge Exam ROS Constitutional: no chills, aches, sweats or fever Respiratory: no sob,cough, sputum, or wheezing Cardiac: no chest pain, palpitations, edema, orthopnea or lightheadedness GI: no abdominal pain, nausea, vomiting, diarrhea or constipation : no dysuria or hesitancy Extremities: left groin soreness following fall over the night Skin: no rash PE General: no distress Eyes: normal inspection, PERLL Respiratory: chest non tender, clear to auscultation, normal breath sounds, no respiratory distress, no accessory muscle use Cardiac: regular rate and rhythm, no rub or gallop, no murmur, no edema, no jvd GI/: active bowel sounds, no abd pain or tenderness, soft, non distended Extremities: normal range of motion, normal strength, non tender Neuro/Psych: alert and oriented x 3, normal mood and affect Skin: normal color, dry Hospital Course Ms. Oden is a 56 year old woman here for abnormal labs. She was not having any symptoms when her doctor's office called to tell her that her labs were abnormal. Pmhx adrenal insufficiency, anemia, hypokalemia,hypomagnesemia, hyponatremia, hypotension. Hypokalemia - on admission potassium was 2.1, 3.7 today - DC home with po potassium 40 mEq bid Adrenal insufficiency - decreased IV cortisone to 20 mg am, 10 mg pm - taper as an outpatient with pcp HTN - hydralazine prn in patient - added amlodipine 5 mg 05/01 Hyponatremia - continue sodium supplementation - Na normal today. Chronic anemia - Hgb stable Fall risk - Ms. Oden fell getting up to the bathroom overnight, did not hit her head, sustained minor injury to groin which is sore with movement - PT/OT evals before discharge - PT felt that she was mostly at her baseline but asked if she would be willing to participate in inpatient rehab and she refused. Ms. Oden will need close endocrine follow up to avoid a repeat admission. She will have repeat labs drawn this weekend POWER PRESS OPERATOR Physician Supervision Note: I interviewed and examined the patient. Discussed with Marjan Torres POWER PRESS OPERATOR and agree with findings and plan as documented in the note. Any exceptions or clarifications are listed here: None Issue is here with her current electrolyte abnormalities these were repleted there is concern of adrenal insufficiency. The patient did have a fall on the day prior to discharge. She is evaluated by therapy prior to leaving felt she was at her baseline. She's had multiple falls in the past is unclear how much is related to her chronic alcohol use. Her current vital signs are stable with slight elevation of blood pressure Heart is regular lungs are clear she does have some buttocks and groin pain without obvious bruising Patiently discharged on augmented potassium supplementation hydrocortisone treatment for possible adrenal insufficiency and low-dose amlodipine for hypertension control We have tried to arrange more timely endocrinology follow-up we'll weren't able to stewart a closer appointment will subsequently rely on primary care for post discharge follow-up Documented By: Gonsalo Coe Total Time Spent: Greater than 30 minutes This includes examination of the patient, discharge planning, medication reconciliation, and communication with other providers. Discharge Instructions Please refer to the electronic Patient Visit Report (Discharge Instructions) for additional information. Follow-Up Dr. Lopez's office on FridayMay 05 at 9:30 am. Endocrine follow up as soon as possible Additional Copies To Darian Lopez D.O.
[2017-05-01 15:49] VITALS: BP 158/89; PULSE 90; O2SAT 93
[2017-05-01 15:53] VITALS: BP 160/90; PULSE 84; TEMP 36.8; O2SAT 96
[2017-05-01 16:31] VITALS: BP 160/90; PULSE 84; TEMP 36.8; O2SAT 96
[2017-05-01] MEDS ORDERED: POTASSIUM CHLORIDE 20 MEQ TABCR PO SCH (21:00)
[2017-05-01] MEDS ORDERED: HYDROCORTISONE 10 MG TAB PO SCH (21:00)
[2017-05-02] MEDS ORDERED: HYDROCORTISONE 10 MG TAB PO SCH (09:00)
[2017-05-06] MEDS ORDERED: ERGOCALCIFEROL 50,000 INTER.UNIT CAP PO SCH (09:00)
== END 2017-05-01 17:28 | disposition home health service (06) | DRG 644 ==
LOC: C.EDB 10:41 → C.MED 13:12 → ENRESERV 14:03
PROVIDERS: ADMIT Hospitalist; ATTEND Internal Medicine
DX: E27.40 Unspecified adrenocortical insufficiency (principal); E87.1 Hypo-osmolality and hyponatremia; E87.6 Hypokalemia; E83.42 Hypomagnesemia; R10.30 Lower abdominal pain, unspecified; W01.0XXA Fall on same level from slipping, tripping and stumbling without subsequent striking against object, initial encounter; Y92.230 Patient room in hospital as the place of occurrence of the external cause; R29.6 Repeated falls; R79.89 Other specified abnormal findings of blood chemistry; R60.0 Localized edema; R63.4 Abnormal weight loss; Z68.23 Body mass index [BMI] 23.0-23.9, adult; I10 Essential (primary) hypertension; D64.9 Anemia, unspecified; E53.8 Deficiency of other specified B group vitamins; F17.200 Nicotine dependence, unspecified, uncomplicated; Z91.81 History of falling; Z79.899 Other long term (current) drug therapy

== ENCOUNTER → 2017-05-13 | Day surgery (SDC) | payer OTHER ==
[~2017-05-13] VITALS: Ht 167.6 cm; Wt 68.0 kg
[~2017-05-13] MED LIST changes: -CEFU1TAB35 PO; +MCRK20 PO; +NRV5 PO
[2017-05-13 08:10] VITALS: BP 133/85; PULSE 90; TEMP 36.9; O2SAT 94; Ht 167.6 cm; Wt 68.0 kg
[2017-05-13] MEDS: COSYNTROPIN INJ 1 MCG in SYRINGE 0 ML IV SCH ×2 (08:46→08:58)
[2017-05-13 08:49] LABS: HEMATOCRIT 32.4 % (37-47); MEAN CELL VOLUME 102.5 fL (80-100); MEAN CORPUSCULAR HEMOGLOBIN 35.4 pg (25-34); MEAN CORPUSCULAR HGB CONC 34.6 g/dl (32-36); MEAN PLATELET VOLUME 9.1 fL (7.4-10.4); PLATELET COUNT 223 K/uL (130-400); RED BLOOD COUNT 3.16 M/uL (4.2-5.4); WHITE BLOOD COUNT 3.56 K/uL (4.8-10.8)
[2017-05-13 09:08] LABS: BUN/CREATININE RATIO 18.7 (10-20); CREATININE 0.39 mg/dl (0.60-1.20); POTASSIUM 3.6 mmol/L (3.5-5.1)
[2017-05-13 09:10] LABS: ALB/GLOB RATIO 0.9 (0.9-2)
[2017-05-13 09:35] VITALS: BP 122/82; PULSE 91; TEMP 37; O2SAT 96
[2017-05-13 09:35] LABS: PROLACTIN 7.67 ng/mL
[2017-05-13 09:58] VITALS: BP 133/89; PULSE 88; TEMP 36.9; O2SAT 95
== END | disposition home or self-care (01) ==
LOC: C.MTU 07:50
PROVIDERS: ATTEND Internal Medicine Endocrinology, Diabetes & Metabolism
DX: E27.40 Unspecified adrenocortical insufficiency (principal); F10.99 Alcohol use, unspecified with unspecified alcohol-induced disorder; F32.9 Major depressive disorder, single episode, unspecified; R62.7 Adult failure to thrive; Z87.81 Personal history of (healed) traumatic fracture; E87.6 Hypokalemia; E87.1 Hypo-osmolality and hyponatremia; E46 Unspecified protein-calorie malnutrition; E55.9 Vitamin D deficiency, unspecified

== ENCOUNTER 2019-10-22 13:48 | Inpatient (IN) ==
[2019-10-22] MEDS ORDERED: SODIUM CHLORIDE 0.9% 1000ML 2,000 ML IV ONE (14:07)
--- NOTE | 2019-10-22 14:21 | Emergency Department Note ---
History of Present Illness General Chief Complaint: Headache History of Present Illness Maximum Pain Intensity: 4 This patient is a 58-year-old female who presents the emergency department via ALS for evaluation of 2 falls that occurred earlier this morning. The patient reports tripping over her step and falling backwards striking her head off the ground. No reported loss of consciousness. The patient does appear slightly altered. According to EMS, there were several bottles of alcohol in the apartment. The patient currently denies having any alcoholic beverage earlier today or any drug use. She denies any chest pain or shortness of breath. Her headache is throbbing in nature. She also reports pain into her buttocks and lower back. She reports bilateral lower extremity numbness and tingling, that has been going on for the last 8 months. No urinary or bowel incontinence reported. Home Medications Home Medications Medication Instructions Recorded Confirmed Type amlodipine 5 mg PO DAILY 06/19/19 10/22/19 History cholecalciferol (vitamin D3) 2,000 mcg PO DAILY 06/19/19 10/22/19 History [Vitamin D3] folic acid 1 mg PO DAILY 06/19/19 10/22/19 History furosemide 20 mg PO DAILY 06/19/19 10/22/19 History hydroxychloroquine 200 mg PO BID 06/19/19 10/22/19 History meloxicam 15 mg PO DAILY 06/19/19 10/22/19 History multivitamin [Daily-Matthew] 1 tab PO DAILY 06/19/19 10/22/19 History potassium chloride 20 meq PO BID 06/19/19 10/22/19 History pravastatin 10 mg PO DAILY 06/19/19 10/22/19 History thiamine HCl (vitamin B1) 100 mg PO DAILY 06/19/19 10/22/19 History Allergies Allergy/AdvReac Type Severity Reaction Status Date / Time Penicillins Allergy Mild rash Verified 10/22/19 15:46 Past Med/Surg History Medical History Anemia Hypertension Hypokalemia Hyponatremia Hypotension Surgical History S/P section (Resolved) Family History Other No significant family history Social History Preferred Language: Lithuanian Communication Ability: Effective Houseperson Required: No Beliefs That Will Affect Care: None marital status: Single Current Living Situation: Significant Other current occupational status: unemployed Other Information That Helps Us Care for You: No Feels Safe at Home: Yes Safety Concerns: Feels Safe At This Time Smoking Status: Current every day smoker Tobacco Type: cigarettes ; Cigarettes Per Day: 1-2/day ; Do You Dip or Chew Tobacco: No ; Second Hand Exposure: No ; Tobacco Cessation Education Requested by Patient: No Hx Alcohol Use: Yes Alcohol type: beer Hx Substance Use: No Review of Systems A total of 10 systems reviewed and were otherwise negative Physical Exam Vital Signs Vital Signs - 24 hr 10/22/19 14:55 10/22/19 14:57 10/22/19 15:00 Pulse Rate 80 79 Pulse Rate from SpO2 Sensor 82 80 Respiratory Rate 25 H 21 18 Blood Pressure 84/49 L 84/54 L Blood Pressure Mean 60 64 Pulse Oximetry 97 97 10/22/19 15:01 10/22/19 15:10 10/22/19 15:20 Pulse Rate 77 82 80 Pulse Rate from SpO2 Sensor 78 82 Respiratory Rate 19 20 20 Blood Pressure Blood Pressure Mean Pulse Oximetry 98 99 10/22/19 15:30 10/22/19 15:31 10/22/19 15:40 Pulse Rate 92 H 89 Pulse Rate from SpO2 Sensor 81 Respiratory Rate 18 18 19 Blood Pressure 85/55 L Blood Pressure Mean 64 Pulse Oximetry 97 10/22/19 15:50 10/22/19 16:00 10/22/19 16:01 Pulse Rate 84 85 78 Pulse Rate from SpO2 Sensor 83 78 79 Respiratory Rate 19 17 19 Blood Pressure 82/46 L Blood Pressure Mean 56 Pulse Oximetry 99 97 97 10/22/19 16:10 10/22/19 16:20 10/22/19 16:30 Pulse Rate 79 82 77 Pulse Rate from SpO2 Sensor 79 75 Respiratory Rate 15 19 19 Blood Pressure 78/47 L Blood Pressure Mean 55 Pulse Oximetry 98 96 10/22/19 16:31 10/22/19 16:40 10/22/19 16:50 Pulse Rate 77 79 92 H Pulse Rate from SpO2 Sensor Respiratory Rate 19 21 20 Blood Pressure Blood Pressure Mean Pulse Oximetry 10/22/19 17:00 10/22/19 17:29 10/22/19 17:30 Pulse Rate 81 96 H Pulse Rate from SpO2 Sensor 79 Respiratory Rate 14 18 Blood Pressure 71/46 L 77/46 L Blood Pressure Mean 56 54 Pulse Oximetry 96 10/22/19 17:31 10/22/19 17:40 10/22/19 17:50 Pulse Rate 78 77 Pulse Rate from SpO2 Sensor 86 79 77 Respiratory Rate 23 20 19 Blood Pressure Blood Pressure Mean Pulse Oximetry 96 95 97 10/22/19 18:00 10/22/19 18:01 10/22/19 18:10 Pulse Rate 76 77 75 Pulse Rate from SpO2 Sensor 76 78 75 Respiratory Rate 18 18 18 Blood Pressure 82/47 L Blood Pressure Mean 56 Pulse Oximetry 97 97 97 10/22/19 18:20 10/22/19 18:30 10/22/19 18:31 Pulse Rate 81 79 Pulse Rate from SpO2 Sensor 80 79 79 Respiratory Rate 23 20 18 Blood Pressure 78/45 L Blood Pressure Mean 54 Pulse Oximetry 97 97 96 10/22/19 18:40 10/22/19 18:50 Pulse Rate 79 93 H Pulse Rate from SpO2 Sensor 78 77 Respiratory Rate 19 21 Blood Pressure Blood Pressure Mean Pulse Oximetry 96 97 Constitutional WD/WN, vitals as above Eyes EOM intact bilaterally Neck trachea midline Respiratory normal respiratory effort, lungs clear to auscultation Cardiovascular RRR, no murmur, no edema Gastrointestinal (Abdomen) normal bowel sounds, soft, nontender, no hepatosplenomegaly Musculoskeletal Mild nonpitting lower extremity edema noted. The patient is uncooperative with the exam. DP pulse +2 bilaterally. Skin no rashes, warm and dry Neurologic Alert and answering most questions appropriately. The patient is slurring her speech. Following some commands. No unilateral weakness appreciated. Psychiatric Acting appropriately Course Course Patient was seen and examined Vital signs including blood pressure were reviewed medications list was verified with patient Labs were obtained, and a saline lock was established An order was placed for continuous cardiac monitoring. The monitor shows a rate of 82 with normal sinus rhythm." Imaging was performed and reviewed. The patient was reassessed. We discussed her results. She voiced understanding. She was comfortable with the disposition. Case was discussed with the hospitalist service. She will be admitted for further management. Consultations Consultation #1: Dr. Paez-hospitalist Administered Medications Pantoprazole Sodium 40 mg/ (Syringe) 10 mls @ 5 mls/min IV Q12H YOUNG Stop: 11/22/19 06:59 Last Admin: 10/23/19 07:54 Dose: 5 mls/min Documented by: [id number] Thiamine HCl 500 mg/ Sodium (Chloride) 55 mls @ 208 mls/hr IV TID YOUNG Stop: 10/25/19 08:59 Last Infusion: 10/23/19 09:27 Dose: 0 mls/hr Documented by: [id number] Admin: 10/23/19 08:52 Dose: 208 mls/hr Documented by: [id number] Potassium Phosphate 24 mmol/ (Sodium Chloride) 508 mls @ 88 mls/hr IV NOW STA Stop: 10/23/19 18:51 Last Admin: 10/23/19 13:53 Dose: 88 mls/hr Documented by: [id number] Discontinued Medications Calcium Gluconate (Calcium Gluconate 10%) 3,000 mg IV NOW STA Stop: 10/23/19 13:03 Last Admin: 10/23/19 14:06 Dose: Not Given Documented by: [id number] Famotidine (Pepcid 20mg Iv Push) 20 mg IV ONE STA Stop: 10/22/19 16:43 Last Admin: 10/22/19 17:31 Dose: 20 mg Documented by: [id number] Sodium Chloride (Nss 1000ml) 2,000 mls @ 999 mls/hr IV .Q2H1M ONE Stop: 10/22/19 16:07 Last Infusion: 10/22/19 16:28 Dose: 0 mls/hr Documented by: [id number] Admin: 10/22/19 14:13 Dose: 999 mls/hr Documented by: [id number] Potassium Chloride (K Bennett / Wtr) 10 meq in 100 mls @ 100 mls/hr IV ONE ONE Stop: 10/22/19 17:41 Last Infusion: 10/22/19 19:45 Dose: 0 mls/hr Documented by: [id number] Admin: 10/22/19 17:35 Dose: 100 mls/hr Documented by: [id number] Thiamine HCl 100 mg/ Syringe 10 mls @ 2 mls/min IV NOW STA Stop: 10/22/19 16:46 Last Admin: 10/22/19 17:49 Dose: 2 mls/min Documented by: [id number] Multivitamins 10 ml/ Thiamine HCl 100 mg/ Folic Acid 1 mg/Sodium Chloride 1,011.2 mls @ 1,011.2 mls/hr IV .Q1H ONE Stop: 10/22/19 17:41 Last Infusion: 10/22/19 19:46 Dose: 0 mls/hr Documented by: [id number] Admin: 10/22/19 17:49 Dose: 1,011.2 mls/hr Documented by: [id number] Ceftriaxone Sodium (Rocephin) 1,000 mg in 50 mls @ 100 mls/hr IV NOW STA Stop: 10/22/19 17:15 Last Infusion: 10/22/19 18:32 Dose: 0 mls/hr Documented by: [id number] Admin: 10/22/19 17:31 Dose: 100 mls/hr Documented by: [id number] Magnesium Sulfate/Dextrose (Magnesium Sulfate / D5w) 1 gm in 100 mls @ 100 mls/hr IV Q1H YOUNG Stop: 10/22/19 19:44 Last Infusion: 10/22/19 19:46 Dose: 0 mls/hr Documented by: [id number] Admin: 10/22/19 18:46 Dose: 100 mls/hr Documented by: [id number] Infusion: 10/22/19 18:45 Dose: 100 mls/hr Documented by: [id number] Admin: 10/22/19 17:45 Dose: 100 mls/hr Documented by: [id number] Potassium Chloride (K Bennett / Wtr) 10 meq in 100 mls @ 100 mls/hr IV ONE ONE Stop: 10/22/19 19:15 Last Infusion: 10/22/19 19:46 Dose: 0 mls/hr Documented by: [id number] Admin: 10/22/19 18:45 Dose: 100 mls/hr Documented by: [id number] Pantoprazole Sodium 40 mg/ (Syringe) 10 mls @ 5 mls/min IV NOW ONE Stop: 10/22/19 19:02 Last Admin: 10/22/19 19:31 Dose: 5 mls/min Documented by: [id number] Magnesium Sulfate/Dextrose (Magnesium Sulfate / D5w) 1 gm in 100 mls @ 100 mls/hr IV Q1H YOUNG Stop: 10/22/19 23:11 Last Infusion: 10/22/19 23:54 Dose: 0 mls/hr Documented by: [id number] Admin: 10/22/19 22:47 Dose: 100 mls/hr Documented by: [id number] Infusion: 10/22/19 22:37 Dose: 100 mls/hr Documented by: [id number] Admin: 10/22/19 21:37 Dose: 100 mls/hr Documented by: [id number] Calcium Gluconate 2,000 mg/ (Sodium Chloride) 70 mls @ 240 mls/hr IV NOW ONE Stop: 10/22/19 21:59 Last Infusion: 10/22/19 22:29 Dose: 0 mls/hr Documented by: [id number] Admin: 10/22/19 22:05 Dose: 240 mls/hr Documented by: [id number] Potassium Chloride (K Bennett / Wtr) 10 meq in 100 mls @ 100 mls/hr IV Q1H YOUNG Stop: 10/23/19 01:45 Last Infusion: 10/23/19 02:42 Dose: 0 mls/hr Documented by: [id number] Admin: 10/23/19 01:39 Dose: 100 mls/hr Documented by: [id number] Infusion: 10/23/19 01:37 Dose: 0 mls/hr Documented by: [id number] Admin: 10/23/19 00:36 Dose: 100 mls/hr Documented by: [id number] Infusion: 10/23/19 00:22 Dose: 100 mls/hr Documented by: [id number] Admin: 10/22/19 23:22 Dose: 100 mls/hr Documented by: [id number] Infusion: 10/22/19 23:19 Dose: 100 mls/hr Documented by: [id number] Admin: 10/22/19 22:19 Dose: 100 mls/hr Documented by: [id number] Thiamine HCl 500 mg/ Sodium (Chloride) 55 mls @ 208 mls/hr IV NOW STA Stop: 10/22/19 22:08 Last Infusion: 10/22/19 23:14 Dose: 0 mls/hr Documented by: [id number] Admin: 10/22/19 22:28 Dose: 208 mls/hr Documented by: [id number] Lactated Ringer's (Lr) 1,000 mls @ 150 mls/hr IV .Q6H40M YOUNG Stop: 11/21/19 23:29 Last Admin: 10/22/19 23:41 Dose: Not Given Documented by: [id number] Lactated Ringer's (Lr) 1,000 mls @ 150 mls/hr IV .Q6H40M YOUNG Stop: 10/23/19 07:09 Last Infusion: 10/23/19 08:23 Dose: 0 mls/hr Documented by: [id number] Admin: 10/23/19 01:14 Dose: 150 mls/hr Documented by: [id number] Potassium Chloride (K eBnnett / Wtr) 10 meq in 100 mls @ 100 mls/hr IV Q1H YOUNG Stop: 10/23/19 03:32 Last Infusion: 10/23/19 05:34 Dose: 0 mls/hr Documented by: [id number] Admin: 10/23/19 04:28 Dose: 100 mls/hr Documented by: [id number] Infusion: 10/23/19 03:43 Dose: 100 mls/hr Documented by: [id number] Admin: 10/23/19 02:43 Dose: 100 mls/hr Documented by: [id number] Calcium Gluconate 3,000 mg/ (Sodium Chloride) 80 mls @ 160 mls/hr IV NOW STA Stop: 10/23/19 13:38 Last Admin: 10/23/19 13:53 Dose: 160 mls/hr Documented by: [id number] Sodium Chloride (Nss 1000ml) 500 mls @ 500 mls/hr IV .Q1H ONE Stop: 10/23/19 14:37 Last Admin: 10/23/19 13:55 Dose: 500 mls/hr Documented by: [id number] Ioversol (Optiray 320 100ml) 93 ml IV ONCE PRN PRN Reason: Interaction Checking Stop: 10/26/19 17:08 Last Admin: 10/22/19 17:09 Dose: 93 ml Documented by: [id number] Potassium Chloride (Klor-Con M20) 40 meq PO NOW STA Stop: 10/22/19 23:27 Last Admin: 10/23/19 01:14 Dose: 40 meq Documented by: [id number] Potassium Phosphate (Potassium Phosphate Replace) 24 mmol IV NOW STA Stop: 10/23/19 13:03 Last Admin: 10/23/19 14:06 Dose: Not Given Documented by: [id number] Medical Decision Making Differential Diagnosis Differential diagnosis: Skull fracture, intracranial bleed, neck injury, intoxication, electrolyte abnormality, syncopal episode, cardiogenic abnormality, cardiac ischemia, dehydration, among others Medical Records Attestation: I reviewed the patient's medical records. Home Medications Current Medication List: was personally reviewed by me Laboratory Data Attestation: I reviewed the patient's lab results. Result diagrams: 10/23/19 13:52 10/23/19 07:09 Lab Results 10/22/19 10/22/19 10/22/19 Range/Units 14:23 14:23 14:23 WBC Cancelled RBC Cancelled Hgb Cancelled Hct Cancelled MCV Cancelled MCH Cancelled MCHC Cancelled RDW Std Deviation Cancelled RDW Coeff of Elo Cancelled Plt Count Cancelled MPV Cancelled Immature Gran % (Auto) Cancelled Neut % (Auto) Cancelled Lymph % (Auto) Cancelled [place] % (Auto) Cancelled Eos % (Auto) Cancelled Baso % (Auto) Cancelled Immature Gran # (Auto) Cancelled Neut # (Auto) Cancelled Lymph # (Auto) Cancelled [place] # (Auto) Cancelled Eos # (Auto) Cancelled Baso # (Auto) Cancelled Absolute Nucleated RBC Cancelled Nucleated RBC % (auto) Cancelled Neutrophils % (Manual) Cancelled Band Neutrophils % Cancelled Lymphocytes % (Manual) Cancelled Prolymphocyte % Cancelled Reactive Lymphs % (Man) Cancelled Monocytes % (Manual) Cancelled Eosinophils % (Manual) Cancelled Basophils % (Manual) Cancelled Metamyelocytes % (Man) Cancelled Myelocytes % (Man) Cancelled Promyelocytes % (Man) Cancelled Blast Cells % (Manual) Cancelled Plasma Cell % (Manual) Cancelled Other Cells % Cancelled Nucleated RBC % Cancelled Neutrophils # (Manual) Cancelled Band Neutrophils # Cancelled Total Absolute Neuts Cancelled Lymphocytes # (Manual) Cancelled Prolymphocyte # Cancelled Reactive Lymphs # Cancelled Total Abs Lymphocytes Cancelled Monocytes # (Manual) Cancelled Eosinophils # (Manual) Cancelled Basophils # (Manual) Cancelled Metamyelocytes # (Man) Cancelled Myelocytes # (Manual) Cancelled Promyelocytes # (Man) Cancelled Blast Cells # (Man) Cancelled Plasma Cell # (Manual) Cancelled Other Cells # Cancelled Nucleated RBCs # (Man) Cancelled Hypersegmented Neuts Cancelled Hyposegmented Neuts Cancelled Hypogranular Neuts Cancelled Large Granular Lymphs Cancelled # Lrg Granular Lymphs Cancelled Hairy Cells Cancelled Smudge Cells Cancelled Toxic Granulation Cancelled Toxic Vacuolation Cancelled Dohle Bodies Cancelled [place] Rods Cancelled Platelet Estimate Cancelled Hypogranular Platelets Cancelled Clumped Platelets Cancelled Giant Platelets Cancelled Platelet Satelliting Cancelled RBC Morphology Cancelled Polychromasia Cancelled Hypochromasia Cancelled Poikilocytosis Cancelled Basophilic Stippling Cancelled Anisocytosis Cancelled Microcytosis Cancelled Macrocytosis Cancelled Spherocytes Cancelled Pappenheimer Bodies Cancelled Sickle Cells Cancelled Target Cells Cancelled Tear Drop Cells Cancelled Ovalocytes Cancelled Stomatocytes Cancelled Jovel-[place] Bodies Cancelled Echinocytes Cancelled Acanthocytes (Spur) Cancelled Rouleaux Cancelled RBC Agglutinates Cancelled Schistocytes Cancelled RBC Morph Comment Cancelled Sezary Cell Cancelled PT (9.0-12.0) Seconds INR (0.9-1.1) Sodium Cancelled Potassium Cancelled Chloride Cancelled Carbon Dioxide Cancelled Anion Gap Cancelled BUN Cancelled Creatinine Cancelled Est Cr Clr Drug Dosing Cancelled Est GFR ( Amer) Cancelled Est GFR (Non-Af Amer) Cancelled BUN/Creatinine Ratio Cancelled Glucose Cancelled Calcium Cancelled Phosphorus Cancelled Magnesium Cancelled Total Bilirubin Cancelled AST Cancelled ALT Cancelled Alkaline Phosphatase Cancelled Troponin I Cancelled Total Protein Cancelled Albumin Cancelled Globulin Cancelled Albumin/Globulin Ratio Cancelled Lipase Cancelled Random Cortisol mcg/dl Urine Color Urine Appearance (Clear) Urine pH (4.5-7.5) Ur Specific [place] (1.000-1.030) Urine Protein (Negative) Urine Glucose (UA) (Negative) Urine Ketones (Negative) Urine Blood (Negative) Urine Nitrite (Negative) Urine Bilirubin (Negative) Urine Urobilinogen (Negative) Ur Leukocyte Esterase (Negative) Urine WBC (Auto) (0-5) /hpf Urine RBC (Auto) (0-4) /hpf U Hyaline Cast (Auto) (0-5) /lpf U Epithel Cells (Auto) (0-5) /lpf Urine Bacteria (Auto) (Negative) Salicylates (2.8-20) mg/dl Urine Opiates Screen (Neg) Ur Methadone, Qual (Neg) Acetaminophen (10-30) ug/ml Urine Barbiturates (Neg) Ur Phencyclidine (PCP) (Neg) U Amphetamin/Meth Scrn (Neg) MDMA (Ecstasy) Screen (Neg) U Benzodiazepines Scrn (Neg) Ur Cocaine Metabolite (Neg) U Marijuana (THC) Screen (Neg) Ethyl Alcohol mg/dL 33.6 H (0-3) mg/dl Hepatitis C Ab Screen (Neg) Blood Type Antibody Screen Crossmatch 10/22/19 10/22/19 10/22/19 Range/Units 14:23 14:23 14:23 WBC RBC Hgb Hct MCV MCH MCHC RDW Std Deviation RDW Coeff of Elo Plt Count MPV Immature Gran % (Auto) Neut % (Auto) Lymph % (Auto) [place] % (Auto) Eos % (Auto) Baso % (Auto) Immature Gran # (Auto) Neut # (Auto) Lymph # (Auto) [place] # (Auto) Eos # (Auto) Baso # (Auto) Absolute Nucleated RBC Nucleated RBC % (auto) Neutrophils % (Manual) Band Neutrophils % Lymphocytes % (Manual) Prolymphocyte % Reactive Lymphs % (Man) Monocytes % (Manual) Eosinophils % (Manual) Basophils % (Manual) Metamyelocytes % (Man) Myelocytes % (Man) Promyelocytes % (Man) Blast Cells % (Manual) Plasma Cell % (Manual) Other Cells % Nucleated RBC % Neutrophils # (Manual) Band Neutrophils # Total Absolute Neuts Lymphocytes # (Manual) Prolymphocyte # Reactive Lymphs # Total Abs Lymphocytes Monocytes # (Manual) Eosinophils # (Manual) Basophils # (Manual) Metamyelocytes # (Man) Myelocytes # (Manual) Promyelocytes # (Man) Blast Cells # (Man) Plasma Cell # (Manual) Other Cells # Nucleated RBCs # (Man) Hypersegmented Neuts Hyposegmented Neuts Hypogranular Neuts Large Granular Lymphs # Lrg Granular Lymphs Hairy Cells Smudge Cells Toxic Granulation Toxic Vacuolation Dohle Bodies [place] Rods Platelet Estimate Hypogranular Platelets Clumped Platelets Giant Platelets Platelet Satelliting RBC Morphology Polychromasia Hypochromasia Poikilocytosis Basophilic Stippling Anisocytosis Microcytosis Macrocytosis Spherocytes Pappenheimer Bodies Sickle Cells Target Cells Tear Drop Cells Ovalocytes Stomatocytes Jovel-[place] Bodies Echinocytes Acanthocytes (Spur) Rouleaux RBC Agglutinates Schistocytes RBC Morph Comment Sezary Cell PT 16.3 H (9.0-12.0) Seconds INR 1.6 H (0.9-1.1) Sodium Potassium Chloride Carbon Dioxide Anion Gap BUN Creatinine Est Cr Clr Drug Dosing Est GFR ( Amer) Est GFR (Non-Af Amer) BUN/Creatinine Ratio Glucose Calcium Phosphorus Magnesium Total Bilirubin AST ALT Alkaline Phosphatase Troponin I Total Protein Albumin Globulin Albumin/Globulin Ratio Lipase Random Cortisol 11.79 mcg/dl Urine Color Urine Appearance (Clear) Urine pH (4.5-7.5) Ur Specific [place] (1.000-1.030) Urine Protein (Negative) Urine Glucose (UA) (Negative) Urine Ketones (Negative) Urine Blood (Negative) Urine Nitrite (Negative) Urine Bilirubin (Negative) Urine Urobilinogen (Negative) Ur Leukocyte Esterase (Negative) Urine WBC (Auto) (0-5) /hpf Urine RBC (Auto) (0-4) /hpf U Hyaline Cast (Auto) (0-5) /lpf U Epithel Cells (Auto) (0-5) /lpf Urine Bacteria (Auto) (Negative) Salicylates (2.8-20) mg/dl Urine Opiates Screen (Neg) Ur Methadone, Qual (Neg) Acetaminophen (10-30) ug/ml Urine Barbiturates (Neg) Ur Phencyclidine (PCP) (Neg) U Amphetamin/Meth Scrn (Neg) MDMA (Ecstasy) Screen (Neg) U Benzodiazepines Scrn (Neg) Ur Cocaine Metabolite (Neg) U Marijuana (THC) Screen (Neg) Ethyl Alcohol mg/dL (0-3) mg/dl Hepatitis C Ab Screen Neg (Neg) Blood Type Antibody Screen Crossmatch 10/22/19 10/22/19 10/22/19 Range/Units 15:14 15:14 15:38 WBC RBC Hgb Hct MCV MCH MCHC RDW Std Deviation RDW Coeff of Elo Plt Count MPV Immature Gran % (Auto) Neut % (Auto) Lymph % (Auto) [place] % (Auto) Eos % (Auto) Baso % (Auto) Immature Gran # (Auto) Neut # (Auto) Lymph # (Auto) [place] # (Auto) Eos # (Auto) Baso # (Auto) Absolute Nucleated RBC Nucleated RBC % (auto) Neutrophils % (Manual) Band Neutrophils % Lymphocytes % (Manual) Prolymphocyte % Reactive Lymphs % (Man) Monocytes % (Manual) Eosinophils % (Manual) Basophils % (Manual) Metamyelocytes % (Man) Myelocytes % (Man) Promyelocytes % (Man) Blast Cells % (Manual) Plasma Cell % (Manual) Other Cells % Nucleated RBC % Neutrophils # (Manual) Band Neutrophils # Total Absolute Neuts Lymphocytes # (Manual) Prolymphocyte # Reactive Lymphs # Total Abs Lymphocytes Monocytes # (Manual) Eosinophils # (Manual) Basophils # (Manual) Metamyelocytes # (Man) Myelocytes # (Manual) Promyelocytes # (Man) Blast Cells # (Man) Plasma Cell # (Manual) Other Cells # Nucleated RBCs # (Man) Hypersegmented Neuts Hyposegmented Neuts Hypogranular Neuts Large Granular Lymphs # Lrg Granular Lymphs Hairy Cells Smudge Cells Toxic Granulation Toxic Vacuolation Dohle Bodies [place] Rods Platelet Estimate Hypogranular Platelets Clumped Platelets Giant Platelets Platelet Satelliting RBC Morphology Polychromasia Hypochromasia Poikilocytosis Basophilic Stippling Anisocytosis Microcytosis Macrocytosis Spherocytes Pappenheimer Bodies Sickle Cells Target Cells Tear Drop Cells Ovalocytes Stomatocytes Jovel-[place] Bodies Echinocytes Acanthocytes (Spur) Rouleaux RBC Agglutinates Schistocytes RBC Morph Comment Sezary Cell PT (9.0-12.0) Seconds INR (0.9-1.1) Sodium 124 L Potassium 2.6 L Chloride 93 L Carbon Dioxide 18 L Anion Gap 13.0 H BUN 3 L Creatinine 0.42 L Est Cr Clr Drug Dosing 123.5 Est GFR ( Amer) 131.9 Est GFR (Non-Af Amer) 113.8 BUN/Creatinine Ratio 6.0 L Glucose 59 L Calcium 6.0 L Phosphorus 2.9 Magnesium 0.8 L* Total Bilirubin 0.8 AST 41 H ALT 23 Alkaline Phosphatase 135 H Troponin I 0.023 Total Protein 4.5 L Albumin 1.9 L Globulin 2.6 Albumin/Globulin Ratio 0.7 L Lipase 83 Random Cortisol mcg/dl Urine Color Yellow Urine Appearance Clear (Clear) Urine pH 5.5 (4.5-7.5) Ur Specific [place] 1.006 (1.000-1.030) Urine Protein Negative (Negative) Urine Glucose (UA) Negative (Negative) Urine Ketones Trace H (Negative) Urine Blood Negative (Negative) Urine Nitrite Positive A (Negative) Urine Bilirubin Negative (Negative) Urine Urobilinogen Negative (Negative) Ur Leukocyte Esterase Trace H (Negative) Urine WBC (Auto) 5-10 H (0-5) /hpf Urine RBC (Auto) 0-4 (0-4) /hpf U Hyaline Cast (Auto) 0 (0-5) /lpf U Epithel Cells (Auto) 0-5 (0-5) /lpf Urine Bacteria (Auto) 3+ H (Negative) Salicylates (2.8-20) mg/dl Urine Opiates Screen Neg (Neg) Ur Methadone, Qual Neg (Neg) Acetaminophen (10-30) ug/ml Urine Barbiturates Neg (Neg) Ur Phencyclidine (PCP) Neg (Neg) U Amphetamin/Meth Scrn Neg (Neg) MDMA (Ecstasy) Screen Neg (Neg) U Benzodiazepines Scrn Neg (Neg) Ur Cocaine Metabolite Neg (Neg) U Marijuana (THC) Screen Neg (Neg) Ethyl Alcohol mg/dL (0-3) mg/dl Hepatitis C Ab Screen (Neg) Blood Type Antibody Screen Crossmatch 10/22/19 10/22/19 10/22/19 Range/Units 16:02 17:26 18:31 WBC 3.91 L RBC 2.15 L Hgb 7.6 L Hct 20.2 L* MCV 94.0 MCH 35.3 H MCHC 37.6 H RDW Std Deviation 40.4 RDW Coeff of Elo 11.8 Plt Count 149 MPV 8.8 Immature Gran % (Auto) 0.0 Neut % (Auto) 70.0 Lymph % (Auto) 18.2 [place] % (Auto) 11.5 Eos % (Auto) 0.0 Baso % (Auto) 0.3 Immature Gran # (Auto) 0.00 Neut # (Auto) 2.74 Lymph # (Auto) 0.71 L [place] # (Auto) 0.45 Eos # (Auto) 0.00 Baso # (Auto) 0.01 Absolute Nucleated RBC Nucleated RBC % (auto) Neutrophils % (Manual) Band Neutrophils % Lymphocytes % (Manual) Prolymphocyte % Reactive Lymphs % (Man) Monocytes % (Manual) Eosinophils % (Manual) Basophils % (Manual) Metamyelocytes % (Man) Myelocytes % (Man) Promyelocytes % (Man) Blast Cells % (Manual) Plasma Cell % (Manual) Other Cells % Nucleated RBC % Neutrophils # (Manual) Band Neutrophils # Total Absolute Neuts Lymphocytes # (Manual) Prolymphocyte # Reactive Lymphs # Total Abs Lymphocytes Monocytes # (Manual) Eosinophils # (Manual) Basophils # (Manual) Metamyelocytes # (Man) Myelocytes # (Manual) Promyelocytes # (Man) Blast Cells # (Man) Plasma Cell # (Manual) Other Cells # Nucleated RBCs # (Man) Hypersegmented Neuts Hyposegmented Neuts Hypogranular Neuts Large Granular Lymphs # Lrg Granular Lymphs Hairy Cells Smudge Cells Toxic Granulation Toxic Vacuolation Dohle Bodies [place] Rods Platelet Estimate Hypogranular Platelets Clumped Platelets Giant Platelets Platelet Satelliting RBC Morphology Unremarkable Polychromasia Hypochromasia Poikilocytosis Basophilic Stippling Anisocytosis Microcytosis Macrocytosis Spherocytes Pappenheimer Bodies Sickle Cells Target Cells Tear Drop Cells Ovalocytes Stomatocytes [place] Bodies Echinocytes Acanthocytes (Spur) Rouleaux RBC Agglutinates Schistocytes RBC Morph Comment Sezary Cell PT (9.0-12.0) Seconds INR (0.9-1.1) Sodium Potassium Chloride Carbon Dioxide Anion Gap BUN Creatinine Est Cr Clr Drug Dosing Est GFR ( Amer) Est GFR (Non-Af Amer) BUN/Creatinine Ratio Glucose Calcium Phosphorus Magnesium Total Bilirubin AST ALT Alkaline Phosphatase Troponin I Total Protein Albumin Globulin Albumin/Globulin Ratio Lipase Random Cortisol mcg/dl Urine Color Urine Appearance (Clear) Urine pH (4.5-7.5) Ur Specific [place] (1.000-1.030) Urine Protein (Negative) Urine Glucose (UA) (Negative) Urine Ketones (Negative) Urine Blood (Negative) Urine Nitrite (Negative) Urine Bilirubin (Negative) Urine Urobilinogen (Negative) Ur Leukocyte Esterase (Negative) Urine WBC (Auto) (0-5) /hpf Urine RBC (Auto) (0-4) /hpf U Hyaline Cast (Auto) (0-5) /lpf U Epithel Cells (Auto) (0-5) /lpf Urine Bacteria (Auto) (Negative) Salicylates 5.8 (2.8-20) mg/dl Urine Opiates Screen (Neg) Ur Methadone, Qual (Neg) Acetaminophen 7 L (10-30) ug/ml Urine Barbiturates (Neg) Ur Phencyclidine (PCP) (Neg) U Amphetamin/Meth Scrn (Neg) MDMA (Ecstasy) Screen (Neg) U Benzodiazepines Scrn (Neg) Ur Cocaine Metabolite (Neg) U Marijuana (THC) Screen (Neg) Ethyl Alcohol mg/dL (0-3) mg/dl Hepatitis C Ab Screen (Neg) Blood Type B Positive Antibody Screen NEGATIVE Crossmatch See Detail Imaging Data Attestation: I personally reviewed and interpreted this imaging study as follows: Radiologist's Impression: CT head without contrast IMPRESSION: No acute intracranial findings ACT 112: Negative or not required by law. Electronically signed by: Warren Bautista M.D. 10/22/2019 2:58 PM Dictated: 10/22/19 1450 Transcribed: 10/22/[address] cervical spine without contrast IMPRESSION: No evidence of acute fracture or traumatic subluxation. ACT 112: Negative or not required by law. Electronically signed by: Warren Bautista M.D. 10/22/2019 2:58 PM Dictated: 10/22/19 1454 Transcribed: 10/22/[address] lumbar spine without contrast IMPRESSION: 1. No acute lumbar spine fracture or subluxation. 2. Mild levoscoliosis of the lumbar spine. 3. Moderate to severe multilevel degenerative changes within the lumbar spine. 4. Cholelithiasis. ACT 112: Negative or not required by law. Chest x-ray IMPRESSION: Chronic and postoperative changes. No acute process. ACT 112: Negative or not required by law. The above report was generated using voice recognition software. It may contain grammatical, syntax or spelling errors. Electronically signed by: Earl Jaramillo M.D. 10/22/2019 4:[address] chest IMPRESSION: No acute process. Considerable findings of old and old posttraumatic/postoperative change. ACT 112: Negative or not required by law. The above report was generated using voice recognition software. It may contain grammatical, syntax or spelling errors. Electronically signed by: Earl Jaramillo M.D. 10/22/2019 5:18 PM Dictated: 10/22/19 1715 Transcribed: 10/22/191714 CT abdomen and pelvis IMPRESSION: Chronic change. No acute process. ACT 112: Negative or not required by law. The above report was generated using voice recognition software. It may contain grammatical, syntax or spelling errors. Electronically signed by: Earl Jaramillo M.D. 10/22/2019 5:21 PM Dictated: 10/22/191717 Transcribed: 10/22/191717 ECG Data Indication: other Rate (beats per minute): 82 Rhythm: normal sinus Additional Comments: No acute signs of ischemia noted. No change noted when compared to May 2019. Blood Pressure Blood Pressure Findings: Low blood pressure Head Trauma GCS Score: 15 MDM Narrative This patient is a 58-year-old female who presents to the emergency department with complaints of a mechanical fall. She does appear to be intoxicated. She has significant electrolyte abnormalities. The patient is also anemic. The patient possibly has a history of alcoholism. She refused a rectal exam. I was concerned for GI bleeding. She was hydrated, electrolytes were repleted. She was given Pepcid for GI protection. Hospitalist was consulted for inpatient management. I have personally spent greater than 50 minutes of critical care time in the direct management of this patient. This includes bedside care, interpretation of diagnostic studies, and testing, discussion with consultants, patient, and family members, and other required patient management activities. This 30 minutes is in excess of all separately billable procedures. Impression & Plan Hyponatremia, Anemia, Hypotension Discharge Plan Visit Data *Final* Discharge Date/Time: 10/22/19 19:33 Chief Complaint: Headache ED Provider: Terrance Saleem ED Midlevel Provider: Chrissy Miles Discharge Problem: Hyponatremia, Anemia, Hypotension Patient Disposition: Admitted As Inpatient Discharge Instructions Interventions: ED Discharge Assessment Last Done: 10/22/19 19:33
[2019-10-22 14:56] LABS: INR 1.6 (0.9-1.1); Prothrombin Time 16.3 Seconds (9.0-12.0)
--- NOTE | 2019-10-22 14:59 | CT Scan Report ---
CT head/brain wo con CLINICAL HISTORY: Head pain status post trauma COMPARISON STUDY: 04/13/2017 TECHNIQUE: Axial CT of the brain is performed from the vertex to the skull base. IV contrast was not administered for this examination. A dose lowering technique was utilized adhering to the principles of ALARA. CT DOSE: FINDINGS: No intra or extra-axial mass lesions are visualized. There is no CT evidence of acute cortical infarc tion. There is no evidence of midline shift. There is no acute hemorrhage. No calvarial fractures ar e visualized. There are patchy white matter hypodensities likely on a small vessel basis. There is no evidence of pathologic ventricular dilatation. There is no evidence of acute sinusitis IMPRESSION: No acute intracranial findings ACT 112: Negative or not required by law. Electronically signed by: Warren Bautista M.D. 10/22/2019 2:58 PM
--- NOTE | 2019-10-22 14:59 | CT Scan Report ---
CT OF THE CERVICAL SPINE CLINICAL HISTORY: Neck pain status post trauma COMPARISON STUDY: No previous studies for comparison. CT DOSE: 935.93 mGy.cm TECHNIQUE: CT scan of the cervical spine was performed from the skull base to the thoracic inlet. Sabrina ges are reviewed in the axial, sagittal, and coronal planes. IV contrast was not administered for thi s examination. A dose lowering technique was utilized adhering to the principles of ALARA. FINDINGS: There is a multinodular thyroid gland. The visualized portions of the lung apices reveal no evidence of pneumothorax. The prevertebral soft tissues are normal. No fractures or traumatic subluxations are visualized. There are multilevel degenerative changes. 2.5 mm of anterior subluxation of C4 on C5 is felt to be d egenerative. There is endplate irregularity at the C5-C6 and C6-7 levels. There are erosive facet gary nt changes at the C4-5 level. IMPRESSION: No evidence of acute fracture or traumatic subluxation. ACT 112: Negative or not required by law. Electronically signed by: Warren Bautista M.D. 10/22/2019 2:58 PM
--- NOTE | 2019-10-22 15:17 | CT Scan Report ---
CT OF THE LUMBAR SPINE CLINICAL HISTORY: Low back pain following fall. COMPARISON STUDY: CT of the abdomen and pelvis April 15, 2017. TECHNIQUE: Helical axial images of the lumbar spine were obtained. Sagittal and coronal reconstruct ions were viewed. Automated exposure control was utilized for the study. A dose lowering technique was utilized adhering to the principles of ALARA. FINDINGS: Note is made of moderate levoscoliosis of the lumbar spine. Slight concavity of the superio r endplate of L1 is chronic. There is no acute lumbar spine fracture. There is no suspicious osseous lesion. Moderate to severe multilevel degenerative changes within the lumbar spine are present. Sever al old left sided transverse process fractures are noted. Old bilateral lower rib fractures are noted . Gallstones within the gallbladder are noted. There is an old fracture of the left sacral ala. Centr al canal and neural foramen are suboptimally assessed by CT. IMPRESSION: 1. No acute lumbar spine fracture or subluxation. 2. Mild levoscoliosis of the lumbar spine. 3. Moderate to severe multilevel degenerative changes within the lumbar spine. 4. Cholelithiasis. ACT 112: Negative or not required by law. Electronically signed by: Gigi Dia M.D. 10/22/2019 3:15 PM
[2019-10-22 15:56] LABS: Appearance Urine Clear (Clear); Bilirubin Urine Negative (Negative); Blood Urine Negative (Negative); Color Urine Yellow; Glucose Urine UA Negative (Negative); Ketones Urine Trace (Negative); Leukocyte Esterase Urine Trace (Negative); Nitrite Urine Positive (Negative); Protein Urine Negative (Negative); Specific Gravity Urine 1.006 (1.000-1.030); Urobilinogen Urine Negative (Negative); pH Urine 5.5 (4.5-7.5)
[2019-10-22 16:11] LABS: Amphetamines+Metham, Urine Neg (Neg); Barbiturates, Urine Neg (Neg); Benzodiazepine, Urine Neg (Neg); Cocaine, Urine Neg (Neg); MDMA (Ecstacy), Urine Neg (Neg); Methadone, Urine Neg (Neg); Opiate, Urine Neg (Neg); Phencyclidine, Urine Neg (Neg)
[2019-10-22 16:22] LABS: Bacteria Urine Automated 3+ (Negative); Cast Urine Automated 0 /lpf (0-5); Epithelial Cell Urine Auto 0-5 /lpf (0-5); RBC Urine Automated 0-4 /hpf (0-4)
[2019-10-22 16:26] LABS: Albumin Globulin Ratio 0.7 (0.9-2); Albumin Level 1.9 gm/dl (3.4-5.0); Bilirubin,Total 0.8 mg/dl (0.2-1); Creatinine Clr Calc Pharmacy 123.5 ml/min; Est GFR (African American) 131.9; Est GFR (Non-African American) 113.8; Globulin 2.6 gm/dl (2.5-4.0); Magnesium 0.8 mg/dl (1.8-2.4); Phosphorus 2.9 mg/dl (2.5-4.9); Potassium 2.6 mmol/L (3.5-5.1); Total Protein 4.5 gm/dl (6.4-8.2); Troponin I 0.023 ng/ml (0-0.045)
[2019-10-22] MEDS ORDERED: MULTI-VITAMIN INFUSION 10 ML, THIAMINE HCL 100 MG, FOLIC ACID 1 MG in SODIUM CHLORIDE 0... IV ONE (16:42)
[2019-10-22] MEDS ORDERED: THIAMINE HCL 100 MG in SYRINGE 9 ML IV STA (16:42)
[2019-10-22] MEDS ORDERED: FAMOTIDINE 20MG/5ML IV PUSH IV STA (16:42)
[2019-10-22] MEDS ORDERED: POTASSIUM CHLORIDE / WTR 10 MEQ/100 ML PLCT IV ONE ×2 (16:42→18:16)
[2019-10-22] MEDS ORDERED: MAGNESIUM SULFATE / WTR 40 GM/1,000 ML BAG IV SCH (16:45)
[2019-10-22] MEDS ORDERED: cefTRIAXone SODIUM 1,000 MG/50 ML BAG IV STA (16:46)
--- NOTE | 2019-10-22 16:47 | XRay Report ---
XR chest 1V portable CLINICAL HISTORY: fall trauma COMPARISON STUDY: 06/19/2019 FINDINGS: Extensive postoperative change involving the clavicles and left shoulder. Old healed fractu re right humerus. Multiple old healed rib fractures bilaterally. Lungs are clear. No focal infiltrate. IMPRESSION: Chronic and postoperative changes. No acute process. ACT 112: Negative or not required by law. The above report was generated using voice recognition software. It may contain grammatical, syntax or spelling errors. Electronically signed by: Earl Jaramillo M.D. 10/22/2019 4:46 PM
[2019-10-22 16:51] LABS: Hematocrit (blood only) 20.2 % (37-47); Hemoglobin 7.6 g/dL (12.0-16.0); Mean Corpuscular Hemoglobin 35.3 pg (25-34); Mean Corpuscular Hgb Conc 37.6 g/dL (32-36); Mean Platelet Volume 8.8 fL (7.4-10.4); Platelet Count 149 K/uL (130-400); RDW Coefficient of Variation 11.8 % (11.5-14.5); RDW Standard Deviation 40.4 fL (36.4-46.3); Red Blood Count 2.15 M/uL (4.2-5.4); White Blood Count 3.91 K/uL (4.8-10.8)
[2019-10-22 16:54] LABS: Basophils # (auto) 0.01 K/uL (0-0.2); Basophils % (auto) 0.3 %; Lymphocytes # (auto) 0.71 K/uL (1.2-3.4); Lymphocytes % (auto) 18.2 %; Monocytes # (auto) 0.45 K/uL (0.11-0.59); Monocytes % (auto) 11.5 %; Neutrophils # (auto) 2.74 K/uL (1.4-6.5); RBC Morphology Unremarkable
[2019-10-22] MEDS ORDERED: IOVERSOL 100ml IV PRN (17:09)
--- NOTE | 2019-10-22 17:10 | Electrocardiogram Report ---
Test Reason : Blood Pressure : / mmHG Vent. Rate : 082 BPM Atrial Rate : 082 BPM P-R Int : 166 ms QRS Dur : 066 ms QT Int : 448 ms P-R-T Axes : 089 -13 073 degrees QTc Int : 523 ms Poor data quality, interpretation may be adversely affected Sinus rhythm with occasional Premature ventricular complexes Low voltage QRS Borderline ECG When compared with ECG of 19-JUN-2019 09:53, Premature ventricular complexes are now Present QT has lengthened Confirmed by Dale Zhang ([id number]) on 10/22/2019 5:09:46 PM Referred By: Darian Lopez Confirmed By:Dale Zhang
--- NOTE | 2019-10-22 17:19 | CT Scan Report ---
CT chest w con CT DOSE: HISTORY: Trauma fall low H H TECHNIQUE: Multiaxial CT images of the chest were performed following the intravenous administration of contrast. A dose lowering technique was utilized adhering to the principles of ALARA. COMPARISON: 04/15/2017 FINDINGS: The lungs are clear. Multiple old bilateral rib fractures which are healed. Postoperative changes involving the clavicles bilaterally as well as left humeral shaft. Mild wedge d eformity of a midthoracic vertebral body considered nonacute. IMPRESSION: No acute process. Considerable findings of old and old posttraumatic/postoperative change. ACT 112: Negative or not required by law. The above report was generated using voice recognition software. It may contain grammatical, syntax or spelling errors. Electronically signed by: Earl Jaramillo M.D. 10/22/2019 5:18 PM
--- NOTE | 2019-10-22 17:22 | CT Scan Report ---
CT abd pelvis IV con only CT DOSE: 547.24 mGy.cm HISTORY: Trauma fall low low H H TECHNIQUE: Multiaxial CT images of the abdomen and pelvis were performed following the use of intrave nous contrast. A dose lowering technique was utilized adhering to the principles of ALARA. COMPARISON STUDY: 04/15/2017 FINDINGS: Lung bases are clear. Gallstones in contracted gallbladder. Liver spleen and pancreas are u nremarkable. Nonobstructive bowel pattern. No evidence for mass collection or hematoma. Multiple old healed bone fractures throughout the axial and appendicular skeleton. IMPRESSION: Chronic change. No acute process. ACT 112: Negative or not required by law. The above report was generated using voice recognition software. It may contain grammatical, syntax or spelling errors. Electronically signed by: Earl Jaramillo M.D. 10/22/2019 5:21 PM
[2019-10-22] MEDS: MAGNESIUM SULFATE / D5W 1 GM/100 ML BAG IV SCH ×4 (17:45→22:47)
[2019-10-22] MEDS ORDERED: PANTOprazole 40 MG in SYRINGE 0 ML IV ONE (19:01)
--- NOTE | 2019-10-22 19:05 | History & Physical Report ---
Date of Service October 22, 2019 Assessment & Plan (1) Hypotension: BP 71/46 at lowest when patient was discussed with ER. Does not appear to be particularly symptomatic from this and has good radial and PT/DP pulses. Suspect mostly from GI losses with hypovolemia due to diarrhea, lasix and amlo dipine use. Possible concern for infection/sepsis (UTI, diarrhea) but feel this is less likely. ?hypocalcemia contributing Vital signs q2H Cortisol level WNL (although low for current illness severity and BP, no hypercalcemia or hyperkalemia to suggest this). No chronic steroid use. Will defer stress dose steroids currently unless she becomes more hypotensive/unstable. s/p 3L IV fluid boluses given in ER. (2) GI bleed: Concern for GI bleed given anemia. Hgb baseline 12, 7.6 on admission. Famotidine 20mg IV given in ER. Pantoprazole 40mg IV BID NPO. Consult GI for consideration of EGD once electrolytes/BP more stable. (3) Anemia: As above. Type and screen sent from ER. Iron studies, B12 and folate in AM labs. (4) Diarrhea: Unclear if melena or duration but at least 2 days If watery will order c. diff. FOB -> patient refused rectal exam to obtain this urgently. (5) Alcohol use disorder: Suspected although patient does not admit to this. Alcohol level positive on admission. Last admits to drinking 4 beers last night. No current signs/symptoms of withdrawal and no known prior history of withdrawal. Started AWSS, lorazepam PRN depending on score. (6) Tobacco use disorder: Given severity of illness on admission this was not discussed Consider nicotine patch if having cravings (7) Hypomagnesemia: Suspected GI losses. Contributing towards hypokalemia and hypocalcemia. Mg sulphate 2g IV given in ER. Additional 2g IV ordered. Repeat Mg level in AM (8) Hypokalemia: Suspected GI losses with diarrhea. K 2.6 on admission. s/p KCl 20 meq IV. Repeat BMP Q6H and continue replacement (9) Hyponatremia: Suspected GI loss and beer potomania. NSS 2L + Banana bag boluses given in ER. Continue to monitor Q6H aiming for < 8meq increase in 24 hours. (10) Hypocalcemia: Concurrent hypomagnesemia as above. Corrected calcium 7.7. Suspected to be asymptomatic although unclear if contributing towards hypotension and difficult to interest EKG given background movement. No muscle twitching, Chvostek's sign, acute paresthesias. Phos and vitamin D levels in AM Calcium gluconate 2g IV (11) Metabolic acidosis, increased anion gap: Bicarb 18 on admission with Anion gap 13 - suspected ketosis from starvation and alcohol use Monitor with IV hydration. (12) Left leg pain: Patient reports painful to walk on this but unclear for how long. Ankle appears to be chronically plantarflexed. No spasm present to suggest this is from hypocalcemia. US venous doppler (non-urgent given UGI bleed appears to be more life threat ening). Consider XR if significant bone tenderness. (13) Ambulatory dysfunction: Will need PT/OT evals once more stable. Uses a walker at home. ?from RA or alcohol. Will treat for Wernicke's encephalopathy although no ophthalmoplegia and unclear how acute her balance issues are. (14) Recurrent falls: See ambulatory dysfunction as above. No syncopal events admitted to. Observe rhythm on telemetry. CT head - no intracranial findings. No apparent acute fractures from fall although multiple old healed bone frac tures throughout the axial and appendicular skeleton on CT Consider imaging of left leg/ankle if after stabilization history appears to be acute problem (15) Rheumatoid arthritis: Given current critical illness will hold Plaquenil currently. (16) DVT prophylaxis: SCDs. Chemical VTE prophylaxis contraindicated due to suspected UGI bleed Admission and Anticipated Discharge Date Admission Date: 10/22/2019 History of Present Illness Chief Complaint: Falls, ambulatory dysfunction Primary Care Provider: Darian Oden 58-year-old female with rheumatoid arthritis who presents the ER via ALS due to two falls. The patient reports mobilizing with a walker for the past 2 years due to decreased balance. On this occasion she denies any prodromal symptoms. She reports tripping over her step and falling backwards hitting her head on the ground. No LOC. No vision, hearing, speech changes. She does difficulty lifting her left leg but this has been ongoing for some time (unclear how long). She also has pain on walking on her left leg but again it is unclear whether this is acute (she told the ER 8 months but could not give me a time). She reports not eating or drinking well in the last 4 days. She has lost her appetite because she tells me she does have any teeth although she has also not had any teeth for many years. She has been nauseous but not vomiting and been having diarrhea. With regards to alcohol use. EMS noted several bottles of alcohol in the apartment. Alcohol level in ER 33.6. She last admits to have approximately 4 beers last night. She denies excessive alcohol use. Denies any prior withdrawals. On discussion with her fdc partner Blanco. He reports she has been having diarrhea for 2 days. He is out of the house a lot for work so does not see her some days. He won't tell me how much alcohol she drinks as he does know exactly how much as he is out of the house and he does want to get blamed by her for telling me but also suggests she drinks a lot of beer. No hard liquor. She has been to rehab previously but he says it doesn't work. He feels he needs to just hide his alcohol better. He notes she just doesn't eat. He tries to make it as easy as possible for her to eat by making her things that don't require teeth to eat them. We discussed the illness of alcohol use disorder and how alcohol can lead to prioritizing alcohol over everything else in life including nutrition. Allergies Allergy/AdvReac Type Severity Reaction Status Date / Time Penicillins Allergy Mild rash Verified 10/22/19 15:46 Home Medications Home Medications Medication Instructions Recorded Confirmed Type amlodipine 5 mg PO DAILY 06/19/19 10/22/19 History cholecalciferol (vitamin D3) 2,000 mcg PO DAILY 06/19/19 10/22/19 History [Vitamin D3] folic acid 1 mg PO DAILY 06/19/19 10/22/19 History furosemide 20 mg PO DAILY 06/19/19 10/22/19 History hydroxychloroquine 200 mg PO BID 06/19/19 10/22/19 History meloxicam 15 mg PO DAILY 06/19/19 10/22/19 History multivitamin [Daily-Matthew] 1 tab PO DAILY 06/19/19 10/22/19 History potassium chloride 20 meq PO BID 06/19/19 10/22/19 History pravastatin 10 mg PO DAILY 06/19/19 10/22/19 History thiamine HCl (vitamin B1) 100 mg PO DAILY 06/19/19 10/22/19 History Past Med/Surg History Medical History Anemia Hypertension Hypokalemia Hypomagnesemia Hyponatremia Hypotension Surgical History S/P section (Resolved) Family History Other No significant family history Social History Preferred Language: Beninese Communication Ability: Effective Canvas Goods Fabricator Required: No Beliefs That Will Affect Care: None marital status: Single Current Living Situation: Significant Other current occupational status: unemployed Other Information That Helps Us Care for You: No Feels Safe at Home: Yes Safety Concerns: Feels Safe At This Time Smoking Status: Current every day smoker Tobacco Type: cigarettes ; Cigarettes Per Day: 1-2/day ; Do You Dip or Chew Tobacco: No ; Second Hand Exposure: No ; Tobacco Cessation Education Requested by Patient: No Hx Alcohol Use: Yes Alcohol type: beer Hx Substance Use: No Review of Systems Review of Systems: All systems reviewed & are unremarkable except as noted in HPI & below Constitutional: + body aches and + fatigue; no fever, no chills and no sweats Eyes: no problem reported Ear, Nose, Mouth, Throat: no pain with swallowing Respiratory: no cough Cardiovascular: no chest pain and no dyspnea Gastrointestinal: + nausea and + diarrhea/loose stools; no abdominal pain, no belching, no heartburn, no vomiting, no hematemesis, no pain with swallowing, no dysphagia, no blood in stools and no melena Musculoskeletal: + neck pain and + stiffness Neurologic: + gait abnormality, + falls, + generalized weakness, + paresthesia (LLE) and + lack of coordination (LLE); no radiating pain and no restless legs Physical Exam Constitutional: well developed, + ill appearing (pale) and + malnourished; no acute distress and not diaphoretic Eyes: + anicteric sclerae and PERRL (neither particularly reactive but equal); normal pupil size ENMT: Ears: no external ear abnormality Nose: no external nose abnormality Mouth: + dry oral mucous membranes Neck: trachea midline, no thyromegaly Respiratory: normal respiratory effort and able to speak in complete sentenc es; no respiratory distress, no labored breathing and does not use accessory muscles Auscultation: + crackles (faint in bases); breath sounds present, no diminished lung sounds, no rales, no rhonchi and no wheezes Cardiovascular: Rate/Rhythm: regular rate and regular rhythm Heart Sounds: no murmur Vessels: no JVD Extremities: normal capillary refill and + calf tenderness (left sided); no pedal edema Gastrointestinal (Abdomen): Inspection/Auscultation: abdomen normal to inspection; abdomen not distended Percussion/Palpation: abdomen soft; abdomen nontender, no guarding and abdomen not rigid Musculoskeletal: Spine: + pain with cervical ROM and + cervical muscular tenderness Skin: no rashes, warm and dry Neurologic: moves all extremities, + focal motor deficit (left ankle flexion (appears chronically flexed)), awake and + confused (asks same questions repeatedly after 5 minutes) Speech / Cognition: normal speech Motor/Sensory: + sensory deficit (LLE below knee, reduced); no tremor and no pronator drift Results & Data Results & Data ([facility]) Vital Signs (Past 12 Hours) Vital Signs Temp Pulse Resp BP Pulse Ox 10/22/19 16:31 77 19 10/22/19 16:30 77 19 78/47 L 10/22/19 16:20 82 19 96 10/22/19 16:10 79 15 98 10/22/19 16:01 78 19 97 10/22/19 16:00 85 17 82/46 L 97 10/22/19 15:50 84 19 99 10/22/19 15:40 89 19 97 10/22/19 15:31 18 10/22/19 15:30 92 H 18 85/55 L 10/22/19 15:20 80 20 99 10/22/19 15:10 82 20 10/22/19 15:01 77 19 98 10/22/19 15:00 79 18 84/54 L 97 10/22/19 14:57 80 21 84/49 L 97 10/22/19 14:55 25 H 10/22/19 14:30 80 18 100 10/22/19 14:20 95 H 24 98 10/22/19 14:10 82 14 100 10/22/19 14:06 36.5 C 80 18 87/48 L 98 10/22/19 14:03 81 19 80/52 L 99 10/22/19 14:02 82 18 100 10/22/19 13:55 81 22 87/48 L [address] OF THE CERVICAL SPINE IMPRESSION: No evidence of acute fracture or traumatic subluxation. XR chest 1V portable IMPRESSION: Chronic and postoperative changes. No acute process. CT head/brain wo con IMPRESSION: No acute intracranial findings CT OF THE LUMBAR SPINE IMPRESSION: 1. No acute lumbar spine fracture or subluxation. 2. Mild levoscoliosis of the lumbar spine. 3. Moderate to severe multilevel degenerative changes within the lumbar spine. 4. Cholelithiasis. CT abd pelvis IV con only IMPRESSION: Chronic change. No acute process. CT chest w con IMPRESSION: No acute process. Considerable findings of old and old posttraumatic/postoperative change. ECG Indication: altered mental status Rate (beats per minute): 82 Rhythm: normal sinus Findings: + other (low voltage QRS), + PVC and + prolonged QT (QTc 523) Comparison ECG Date: from (06/19/2019) Change: the following changes noted (Increased QTc interval) Code Status & VTE Plan Code Status Full VTE Prophylaxis Plan VTE Prophylaxis will be ordered: Yes Critical Care Time Critical Care Time: Yes Total Critical Care Time: 70 PG Care Time/CCT Total # of Minutes Spent Total Time Spent with Patient: Total time spent is greater than 50% in coordination of care (as documented) at patient's floor/unit and/or counseling patient: Critical Care Time: Yes Total Critical Care Time: 70 Coding Level of Care Code 63768 Initial Inpt Care Lvl 3 Diagnoses Hypotension I95.89; E86.1 Hypotension type: hypotension due to hypovolemia GI bleed K92.1 GI bleed type/associated pathology: melena Anemia D64.9 Anemia type: unspecified type Diarrhea R19.7 Diarrhea type: unspecified type Alcohol use disorder Tobacco use disorder F17.200 Hypomagnesemia E83.42 Hypokalemia E87.6 Hyponatremia E87.1 Hypocalcemia E83.51 Metabolic acidosis, increased anion gap E87.2 Left leg pain M79.605 Ambulatory dysfunction R26.2 Recurrent falls R29.6 Rheumatoid arthritis M06.9 Rheumatoid arthritis location: unspecified site DVT prophylaxis Z29.9 Additional Codes Critical Care Time - Critical Care Time: Yes ([id number]) (1) Rheumatoid arthritis Rheumatoid arthritis location: unspecified site (2) GI bleed GI bleed type/associated pathology: melena Qualified Code(s): K92.1 - Melena (3) Anemia Anemia type: unspecified type Qualified Code(s): D64.9 - Anemia, unspecified (4) Hypotension Hypotension type: hypotension due to hypovolemia Qualified Code(s): I95.89 - Other hypotension; E86.1 - Hypovolemia (5) Diarrhea Diarrhea type: unspecified type Qualified Code(s): R19.7 - Diarrhea, unspecified
[2019-10-22 19:09] LABS: Salicylate 5.8 mg/dl (2.8-20)
[2019-10-22] MEDS ORDERED: MAGNESIUM SULFATE / D5W 1 GM/100 ML BAG IV STA (20:56)
[2019-10-22 21:25] LABS: Hematocrit (blood only) 20.5 % (37-47); Hemoglobin 7.7 g/dL (12.0-16.0); Mean Corpuscular Hemoglobin 35.2 pg (25-34); Mean Corpuscular Hgb Conc 37.6 g/dL (32-36); Mean Corpuscular Volume 93.6 fL (80-100); Mean Platelet Volume 8.8 fL (7.4-10.4); Platelet Count 159 K/uL (130-400); RDW Standard Deviation 40.4 fL (36.4-46.3); Red Blood Count 2.19 M/uL (4.2-5.4)
[2019-10-22 21:37] LABS: Albumin Globulin Ratio 0.7 (0.9-2); Albumin Level 1.8 gm/dl (3.4-5.0); BUN Creatinine Ratio 6.7 (10-20); Bilirubin,Total 0.6 mg/dl (0.2-1); Calcium 5.8 mg/dl (8.5-10.1); Creatinine Clr Calc Pharmacy 152.5 ml/min; Est GFR (African American) 141.4; Globulin 2.7 gm/dl (2.5-4.0); Potassium 2.5 mmol/L (3.5-5.1); Thyroid Stimulating Hormone 2.6 uIu/ml (0.300-4.500); Total Protein 4.5 gm/dl (6.4-8.2); Troponin I 0.02 ng/ml (0-0.045)
[2019-10-22] MEDS ORDERED: CALCIUM GLUCONATE 10% 2,000 MG in SODIUM CHLORIDE 0.9% 50 ML IV ONE (21:42)
[2019-10-22] MEDS ORDERED: THIAMINE HCL 500 MG in SODIUM CHLORIDE 0.9% 50 ML IV STA (21:54)
[2019-10-22] MEDS: POTASSIUM CHLORIDE / WTR 10 MEQ/100 ML PLCT IV SCH ×2 (22:19→23:22)
[2019-10-22] MEDS ORDERED: POTASSIUM CHLORIDE 20 MEQ TABCR PO STA (23:26)
[2019-10-22] MEDS ORDERED: LORazepam 3 MG/6 ML VIAL IV PRN (23:29)
[2019-10-22] MEDS ORDERED: LORazepam 2 MG/4 ML VIAL IV PRN (23:29)
[2019-10-22] MEDS ORDERED: LORazepam 1 MG/2 ML VIAL IV PRN (23:29)
[2019-10-22] MEDS ORDERED: ATIVAN IV ALCOHOL WITHDRAWL IV PRN (23:29)
[2019-10-22] MEDS ORDERED: LACTATED RINGER'S 1,000 ML IV SCH (23:30)
[2019-10-23] MEDS ORDERED: LACTATED RINGER'S 1,000 ML IV SCH (00:30)
[2019-10-23] MEDS: POTASSIUM CHLORIDE / WTR 10 MEQ/100 ML PLCT IV SCH ×4 (00:36→04:28)
[2019-10-23] MEDS ORDERED: SODIUM CHLORIDE 0.9% 250 ML IV PRN (00:53)
[2019-10-23 00:56] LABS: BUN Creatinine Ratio 7.3 (10-20); Calcium 6.6 mg/dl (8.5-10.1); Creatinine Clr Calc Pharmacy 157.1 ml/min; Est GFR (African American) 142.8; Est GFR (Non-African American) 123.2; Potassium 2.7 mmol/L (3.5-5.1)
[2019-10-23] MEDS ORDERED: PANTOprazole 40 MG in SYRINGE 0 ML IV SCH (07:00)
[2019-10-23 07:29] LABS: Basophils # (auto) 0.01 K/uL (0-0.2); Basophils % (auto) 0.4 %; Hematocrit (blood only) 22.8 % (37-47); Hemoglobin 8.5 g/dL (12.0-16.0); Lymphocytes # (auto) 0.55 K/uL (1.2-3.4); Lymphocytes % (auto) 22.4 %; Mean Corpuscular Hemoglobin 34.3 pg (25-34); Mean Corpuscular Hgb Conc 37.3 g/dL (32-36); Mean Corpuscular Volume 91.9 fL (80-100); Mean Platelet Volume 8.6 fL (7.4-10.4); Monocytes # (auto) 0.35 K/uL (0.11-0.59); Monocytes % (auto) 14.3 %; Neutrophils # (auto) 1.54 K/uL (1.4-6.5); Neutrophils % (auto) 62.9 %; Platelet Count 132 K/uL (130-400); RDW Coefficient of Variation 13.6 % (11.5-14.5); RDW Standard Deviation 45.7 fL (36.4-46.3); Red Blood Count 2.48 M/uL (4.2-5.4); White Blood Count 2.45 K/uL (4.8-10.8)
[2019-10-23 07:39] LABS: INR 1.3 (0.9-1.1); Partial Thromboplastin Ratio 1.3; Partial Thromboplastin Time 35.6 Seconds (21.0-31.0); Prothrombin Time 13.7 Seconds (9.0-12.0)
[2019-10-23 07:57] LABS: Albumin Level 1.7 gm/dl (3.4-5.0); BUN Creatinine Ratio 7.8 (10-20); Calcium 6.4 mg/dl (8.5-10.1); Creatinine Clr Calc Pharmacy 176.6 ml/min; Est GFR (African American) 147.3; Est GFR (Non-African American) 127.1; Magnesium 1.8 mg/dl (1.8-2.4); Potassium 3.4 mmol/L (3.5-5.1)
[2019-10-23 08:00] LABS: Albumin Globulin Ratio 0.7 (0.9-2); Bilirubin,Total 0.8 mg/dl (0.2-1); Globulin 2.4 gm/dl (2.5-4.0); Phosphorus 2.4 mg/dl (2.5-4.9); Total Protein 4.1 gm/dl (6.4-8.2)
[2019-10-23] MEDS: THIAMINE HCL 500 MG in SODIUM CHLORIDE 0.9% 50 ML IV SCH ×2 (08:52→15:01)
--- NOTE | 2019-10-23 10:57 | Ultrasound Report ---
US venous doppler LE LT CLINICAL HISTORY: Left leg swelling COMPARISON STUDY: No previous studies for comparison. FINDINGS: Real-time and color flow Doppler imaging were performed. Flow was seen within the femoral, popliteal and calf veins with no intraluminal thrombus demonstrated. The saphenous vein is patent. IMPRESSION: No evidence of left lower extremity DVT ACT 112: Negative or not required by law. Electronically signed by: Warren Bautista M.D. 10/23/2019 10:56 AM
[2019-10-23] MEDS ORDERED: POTASSIUM PHOS 3 MMOL/1 ML INFUSION IV STA (13:02)
[2019-10-23] MEDS ORDERED: CALCIUM GLUCONATE 10% 10 ML VIAL IV STA (13:02)
[2019-10-23] MEDS ORDERED: POTASSIUM PHOSPHATE 24 MMOL in SODIUM CHLORIDE 0.9% 500 ML IV STA (13:05)
--- NOTE | 2019-10-23 13:07 | Hospitalist Progress Note ---
Date of Service October 23, 2019 Assessment & Plan (1) Hypotension: BP was 71/46 at lowest when patient was discussed with ER. Does not appear to be particularly symptomatic from this and has good radial and PT/DP pulses. - Suspect mostly from GI losses with hypovolemia due to diarrhea, Lasix, and amlodipine use. - Possibly infection/sepsis (UTI, diarrhea) but feel this is less likely. Hemorrhagic also possible given drop in hgb, but hgb bumped appropriately after transfusion. - Continue IV fluids, antibiotics, and PPI as below - GI consult pending. - Will get AM cortisol. She was previously thought to be adrenally insufficient, though random sample was ok this admission. (2) GI bleed: Concern for GI bleed given anemia. Hgb baseline 12, 7.6 on admission. - Hgb down to 7.0 on 10/22; given 1 unit PRBCs with appropriate bump. - Continue PPI IV BID; no indication of cirrhosis despite her alcohol use, so I don't see a need for octreotide at this time. - GI consulted; will see her today. (3) Anemia: As above. Likely acute blood loss anemia. - Iron studies, B12 and folate in AM labs. (4) Diarrhea: Unclear if melena or duration but at least 2 days. - C. diff and FOB ordered (5) Hyponatremia: Suspected GI loss and beer potomania. - Improving; continue IV fluids - If it doesn't correct in 1-2 days, will get urine and serum osms. (6) Alcohol use disorder: Suspected although patient does not admit to this. Alcohol level positive on admission. Last admits to drinking 4 beers last night. - No current signs/symptoms of withdrawal and no known prior history of withdrawal. - Continue AWSS - Given IV thiamine/banana bag - Continue oral vitamin repletion & electrolyte repletion PRN - PT/OT (7) Rheumatoid arthritis: - Given current critical illness will hold Plaquenil currently. (8) Left leg pain: Patient reports painful to walk on this but unclear for how long. Ankle appears to be chronically plantar-flexed. No spasm present to suggest this is from hypocalcemia. - US venous doppler on 10/22 showed no DVT. - Resolved by 10/22; monitor (9) Tobacco use disorder: - Consider nicotine patch if having cravings (10) DVT prophylaxis: SCDs - Chemical VTE prophylaxis contraindicated due to suspected UGI bleed. Admission and Anticipated Discharge Date Admission Date: October 22, 2019 Subjective Reports being hungry, but otherwise no complaints. No pain in the abdomen or buttocks. Denies any melena, hematochezia, or emesis (bloody or otherwise). Had some diarrhea earlier today, but says it was normal brown. Reports no fevers/chills, chest pain, shortness of breath, abdominal pain, nausea, or vomiting. Physical Exam Constitutional: + disheveled and + lethargic; + not healthy appearing Eyes: EOM intact bilaterally; no conjunctival abnormality ENMT: external ear and nose normal, oropharynx normal Neck: trachea midline, no thyromegaly normal visual inspection Respiratory: normal respiratory effort, lungs clear to auscultation no respiratory distress Cardiovascular: RRR, no murmur, no edema Gastrointestinal (Abdomen): Inspection/Auscultation: abdomen normal to inspection and normal bowel sounds; abdomen not distended Percussion/Palpation: abdomen soft; abdomen nontender, no guarding and abdomen not rigid Musculoskeletal: no cyanosis or clubbing, extremities motor strength 5/5 Skin: no rashes, warm and dry Neurologic: moves all extremities and awake Psychiatric: Orientation: alert, oriented to person and cooperative Results & Data Results & Data ([facility]) Vital Signs (Past 12 Hours) Vital Signs Temp Pulse Pulse Resp BP BP Pulse Ox 10/23/19 11:49 37.6 C H 72 18 91/58 L 92 10/23/19 09:12 70 10/23/19 07:55 37.4 C 64 18 84/53 L 93 10/23/19 05:04 36.9 C 67 16 97/63 L 97 10/23/19 04:41 36.4 C L 64 16 99/66 L 94 10/23/19 03:41 36.7 C 69 20 102/66 92 10/23/19 03:11 37.1 C 64 16 95/62 L 92 10/23/19 02:56 37 C 76 16 92/60 L 93 10/23/19 02:35 36.7 C 72 16 79/47 L 96 PG Care Time/CCT Total # of Minutes Spent Total Time Spent with Patient: Total time spent is greater than 50% in coordination of care (as documented) at patient's floor/unit and/or counseling patient: Coding Level of Care Code 81774 Subseq Hosp Care Lvl 3 Diagnoses Hypotension I95.89; E86.1 Hypotension type: hypotension due to hypovolemia GI bleed K92.1 GI bleed type/associated pathology: melena Anemia D64.9 Anemia type: unspecified type Diarrhea R19.7 Diarrhea type: unspecified type Hyponatremia E87.1 Alcohol use disorder Rheumatoid arthritis M06.9 Rheumatoid arthritis location: unspecified site Left leg pain M79.605 Tobacco use disorder F17.200 DVT prophylaxis Z29.9 (1) Hypotension Hypotension type: hypotension due to hypovolemia Qualified Code(s): I95.89 - Other hypotension; E86.1 - Hypovolemia (2) GI bleed GI bleed type/associated pathology: melena Qualified Code(s): K92.1 - Melena (3) Anemia Anemia type: unspecified type Qualified Code(s): D64.9 - Anemia, unspecified (4) Diarrhea Diarrhea type: unspecified type Qualified Code(s): R19.7 - Diarrhea, unspecified (5) Rheumatoid arthritis Rheumatoid arthritis location: unspecified site
[2019-10-23] MEDS ORDERED: CALCIUM GLUCONATE 10% 3,000 MG in SODIUM CHLORIDE 0.9% 50 ML IV STA (13:09)
[2019-10-23] MEDS ORDERED: SODIUM CHLORIDE 0.9% 1000ML 500 ML IV ONE (13:38)
--- NOTE | 2019-10-23 13:54 | Gastrointestinal Consultation ---
Date of Consultation October 23, 2019 Assessment & Plan (1) Anemia: likely related to ETOH abuse, elevated INR also concerning for liver disease. no overt signs of GI bleeding at this time Recs: --start PPI protonix 40 mg BID -- obtain abdominal US --clear liquid diet for now --supportive care, trend H/H, transfuse prn hgb <7 --if the diarrhea persists then will need nonurgent colonoscopy to evaluate, but likely related to an acute process in the setting of alcohol abuse and possible liver disease Thank you for allowing me to participate in the care of this patient (2) Alcohol use disorder: (3) Diarrhea: History of Present Illness Attending Physician: Ras Laura MD 58 yo female here with anemia. She has had multiple falls recently and has decreased balance, has had decreased appetite lately, and appears her ETOH level was elevated on arrival to the ER here. She was also noted to have several bottles of alcohol in her apartment. She had 4 beers the night prior to admission. Also has had diarrhea for the last few days. Appears to have a significant issue with ETOH abuse, which her partner had discussed with the admitting provider. She denies hematochezia, melena, hematemesis, epistaxis, easy bruising, NSAID abuse, prior EGD nor colonoscopy. She was transfused 1 unit overnight and hgb is now 8.5. Labs reviewed. Allergies Allergy/AdvReac Type Severity Reaction Status Date / Time Penicillins Allergy Mild rash Verified 10/22/19 15:46 Home Medications Home Medications Medication Instructions Recorded Confirmed Type amlodipine 5 mg PO DAILY 06/19/19 10/22/19 History cholecalciferol (vitamin D3) 2,000 mcg PO DAILY 06/19/19 10/22/19 History [Vitamin D3] folic acid 1 mg PO DAILY 06/19/19 10/22/19 History furosemide 20 mg PO DAILY 06/19/19 10/22/19 History hydroxychloroquine 200 mg PO BID 06/19/19 10/22/19 History meloxicam 15 mg PO DAILY 06/19/19 10/22/19 History multivitamin [Daily-Matthew] 1 tab PO DAILY 06/19/19 10/22/19 History potassium chloride 20 meq PO BID 06/19/19 10/22/19 History pravastatin 10 mg PO DAILY 06/19/19 10/22/19 History thiamine HCl (vitamin B1) 100 mg PO DAILY 06/19/19 10/22/19 History Patient History Medical History Anemia Hypertension Hypokalemia Hyponatremia Hypotension Surgical History S/P section (Resolved) Family History Other No significant family history Social History Preferred Language: Beninese Communication Ability: Effective Drain Cleaner Plumber Required: No Beliefs That Will Affect Care: None marital status: Single Current Living Situation: Significant Other current occupational status: unemployed Other Information That Helps Us Care for You: No Feels Safe at Home: Yes Safety Concerns: Feels Safe At This Time Smoking Status: Current every day smoker Tobacco Type: cigarettes ; Cigarettes Per Day: 1-2/day ; Do You Dip or Chew Tobacco: No ; Second Hand Exposure: No ; Tobacco Cessation Education Requested by Patient: No Hx Alcohol Use: Yes Alcohol type: beer Hx Substance Use: No Review of Systems Constitutional: no fever, no chills and no weight loss Eyes: as per Subjective / HPI Ear, Nose, Mouth, Throat: as per Subjective / HPI Respiratory: no dyspnea and no dyspnea on exertion Cardiovascular: no chest pain and no palpitations Gastrointestinal: as per Subjective / HPI Musculoskeletal: no joint pain and no swelling Integumentary: no rash and no lesions Neurologic: no numbness and no paresthesia Psychiatric: no depression and no anxiety Endocrine: no fatigue Hematologic / Lymphatic: no easy bleeding and no easy bruising Physical Exam Constitutional: WD/WN, vitals as above Eyes: EOM intact bilaterally Neck: normal visual inspection Respiratory: normal respiratory effort, lungs clear to auscultation Cardiovascular: RRR, no murmur, no edema Gastrointestinal (Abdomen): Inspection/Auscultation: abdomen normal to inspection; abdomen not distended Percussion/Palpation: abdomen soft; abdomen nontender and no hepatosplenomegaly Musculoskeletal: Extremities: no cyanosis Gait: normal gait Skin: no rashes, warm and dry Neurologic: moves all extremities Psychiatric: A+Ox3, euthymic affect Results & Data ([facility]) Vital Signs (Past 12 Hours) Vital Signs Temp Pulse Pulse Resp BP BP Pulse Ox 10/23/19 11:49 37.6 C H 72 18 91/58 L 92 10/23/19 09:12 70 10/23/19 07:55 37.4 C 64 18 84/53 L 93 10/23/19 05:04 36.9 C 67 16 97/63 L 97 10/23/19 04:41 36.4 C L 64 16 99/66 L 94 10/23/19 03:41 36.7 C 69 20 102/66 92 10/23/19 03:11 37.1 C 64 16 95/62 L 92 10/23/19 02:56 37 C 76 16 92/60 L 93 10/23/19 02:35 36.7 C 72 16 79/47 L 96 PG Care Time/CCT Total # of Minutes Spent Total Time Spent with Patient: Total time spent is greater than 50% in coordination of care (as documented) at patient's floor/unit and/or counseling patient: Coding Level of Care Code 57041 Inpt Consult Level 4 Diagnoses Anemia D64.9 Alcohol use disorder Diarrhea R19.7 Diarrhea type: unspecified type (1) Diarrhea Diarrhea type: unspecified type Qualified Code(s): R19.7 - Diarrhea, unspecified
[2019-10-23 14:03] LABS: Hematocrit (blood only) 23.8 % (37-47); Hemoglobin 8.9 g/dL (12.0-16.0); Mean Corpuscular Hemoglobin 34.4 pg (25-34); Mean Corpuscular Hgb Conc 37.4 g/dL (32-36); Mean Corpuscular Volume 91.9 fL (80-100); Mean Platelet Volume 8.5 fL (7.4-10.4); Platelet Count 147 K/uL (130-400); RDW Coefficient of Variation 14.1 % (11.5-14.5); RDW Standard Deviation 47.4 fL (36.4-46.3); Red Blood Count 2.59 M/uL (4.2-5.4); White Blood Count 2.25 K/uL (4.8-10.8)
[2019-10-23] MEDS: cefTRIAXone SODIUM 2,000 MG in DEXTROSE 5% 50 ML IV SCH (16:50)
[2019-10-23] MEDS: PANTOprazole 40 MG TAB PO SCH (22:19)
[2019-10-24] MEDS ORDERED: SODIUM CHLORIDE 0.9% 1000ML 500 ML IV ONE ×2 (04:23→08:44)
--- NOTE | 2019-10-24 07:27 | Electrocardiogram Report ---
Test Reason : Blood Pressure : / mmHG Vent. Rate : 069 BPM Atrial Rate : 067 BPM P-R Int : 162 ms QRS Dur : 070 ms QT Int : 512 ms P-R-T Axes : 105 -05 009 degrees QTc Int : 548 ms Sinus rhythm Low voltage QRS Nonspecific T wave abnormality Abnormal ECG When compared with ECG of 22-OCT-2019 13:57, No significant change Confirmed by Rudolph Lima ([id number]) on 10/24/2019 7:26:57 AM Referred By: Darian Lopez Confirmed By:Rudolph Lima
--- NOTE | 2019-10-24 07:31 | Electrocardiogram Report ---
Test Reason : Blood Pressure : / mmHG Vent. Rate : 071 BPM Atrial Rate : 071 BPM P-R Int : 160 ms QRS Dur : 072 ms QT Int : 444 ms P-R-T Axes : 070 021 067 degrees QTc Int : 482 ms Normal sinus rhythm Low voltage QRS Septal infarct , age undetermined Abnormal ECG When compared with ECG of 23-OCT-2019 00:57, (unconfirmed) Septal infarct is now Present Confirmed by Rudolph Lima ([id number]) on 10/24/2019 7:31:35 AM Referred By: Darian Lopez Confirmed By:Rudolph Lima
[2019-10-24 08:04] LABS: Hematocrit (blood only) 24.9 % (37-47); Hemoglobin 9.2 g/dL (12.0-16.0); Mean Corpuscular Hemoglobin 34.6 pg (25-34); Mean Corpuscular Hgb Conc 36.9 g/dL (32-36); Mean Corpuscular Volume 93.6 fL (80-100); Mean Platelet Volume 8.5 fL (7.4-10.4); Platelet Count 163 K/uL (130-400); RDW Coefficient of Variation 14.5 % (11.5-14.5); RDW Standard Deviation 49.3 fL (36.4-46.3); Red Blood Count 2.66 M/uL (4.2-5.4)
[2019-10-24 08:12] LABS: INR 1.3 (0.9-1.1); Prothrombin Time 13.2 Seconds (9.0-12.0)
[2019-10-24] MEDS: PANTOprazole 40 MG TAB PO SCH ×2 (08:15→19:56)
[2019-10-24 08:36] LABS: Albumin Level 1.7 gm/dl (3.4-5.0); Blood Urea Nitrogen < 1 mg/dl (7-18); Calcium 7.2 mg/dl (8.5-10.1); Carbon Dioxide 22 mmol/L (21-32); Chloride 106 mmol/L (98-107); Creatinine Clr Calc Pharmacy 165.5 ml/min; Est GFR (African American) 144.2; Est GFR (Non-African American) 124.4; Glucose 83 mg/dl (70-99); Magnesium 1.3 mg/dl (1.8-2.4); Potassium 3.1 mmol/L (3.5-5.1); Sodium 136 mmol/L (136-145)
[2019-10-24 08:43] LABS: Alanine Aminotransferase 20 U/L (12-78); Albumin Globulin Ratio 0.7 (0.9-2); Alkaline Phosphatase 123 U/L (45-117); Aspartate Aminotransferase 23 U/L (15-37); Bilirubin,Total 0.5 mg/dl (0.2-1); Globulin 2.5 gm/dl (2.5-4.0); Iron 36 mcg/dl (35-150); Total Iron Binding Capacity 61 mcg/dl (250-450); Total Protein 4.2 gm/dl (6.4-8.2); Transferrin 50 mg/dl (200-360); Transferrin Percent Saturation 51 % (15-50)
[2019-10-24] MEDS ORDERED: CALCIUM GLUCONATE 10% 1,000 MG in SODIUM CHLORIDE 0.9% 50 ML IV ONE (09:00)
[2019-10-24] MEDS: POTASSIUM CHLORIDE 20 MEQ TABCR PO SCH ×2 (09:02→19:55)
[2019-10-24] MEDS: MAGNESIUM SULFATE / D5W 1 GM/100 ML BAG IV SCH ×4 (09:02→15:32)
[2019-10-24 09:04] LABS: Folate (Folic Acid) 12.88 ng/ml (>5.38)
--- NOTE | 2019-10-24 10:38 | Ultrasound Report ---
US abdomen limited HISTORY: Pain. Nausea. Liver, gallbladder. COMPARISON: None. FINDINGS: Pancreas: The pancreas demonstrates a normal echotexture. Liver: Unremarkable. Gallbladder: Severely contracted. Gallstone filled. CBD: 5 mm Right kidney: No hydronephrosis. IMPRESSION: 1. Severely contracted gallbladder with multiple gallstones. 2. Normal caliber bile ducts. 3. Otherwise negative study. ACT 112: Negative or not required by law. The above report was generated using voice recognition software. It may contain grammatical, syntax or spelling errors. Electronically signed by: Earl Jaramillo M.D. 10/24/2019 10:37 AM
--- NOTE | 2019-10-24 11:52 | Electrocardiogram Report ---
Test Reason : Blood Pressure : / mmHG Vent. Rate : 081 BPM Atrial Rate : 081 BPM P-R Int : 152 ms QRS Dur : 078 ms QT Int : 406 ms P-R-T Axes : 091 030 119 degrees QTc Int : 471 ms Normal sinus rhythm Low voltage QRS Septal infarct (cited on or before 23-OCT-2019) Abnormal ECG When compared with ECG of 23-OCT-2019 07:19, No significant change was found Confirmed by Rudolph Lima ([id number]) on 10/24/2019 11:52:31 AM Referred By: Darian Lopez Confirmed By:Rudolph Lima
--- NOTE | 2019-10-24 15:30 | Hospitalist Progress Note ---
Date of Service October 24, 2019 Assessment & Plan (1) Hypotension: BP was 71/46 at lowest when patient was discussed with ER. Does not appear to be particularly symptomatic from this and has good radial and PT/DP pulses. - Suspect mostly from GI losses with hypovolemia due to diarrhea, Lasix, and amlodipine use. - Possibly infection/sepsis (UTI, diarrhea) but feel this is less likely. Hemorrhagic also possible given drop in hgb, but hgb bumped appropriately after transfusion. - Continue IV fluids, antibiotics, and PPI as below - GI consulted -> Feel this is all alcohol-related. Low concern for GI bleed. - Will get AM cortisol. She was previously thought to be adrenally insufficient, though random sample was ok this admission. (2) GI bleed: Concern for GI bleed given anemia. Hgb baseline 12, 7.6 on admission. - Hgb down to 7.0 on 10/22; given 1 unit PRBCs with appropriate bump. - Continue PPI PO BID; no indication of cirrhosis despite her alcohol use, so I don't see a need for octreotide at this time. - GI consulted - Do not feel EGD is necessary. - Hgb rising on its own today at 9.1. (3) Anemia: As above. Likely acute blood loss anemia vs. bone marrow suppression from alcohol. B12/folate normal. - Iron studies on 10/23 indicate chronic disease/alcohol (4) Diarrhea: Unclear if melena or duration but at least 2 days. - C. diff and FOB ordered - As of today (10/23), she is having watery BMs, but they are so loose nursing unable to get a sample. Will keep trying. (5) Hyponatremia: Suspected GI loss and beer potomania. - Improving; continue IV fluids (6) Alcohol use disorder: Suspected although patient does not admit to this. Alcohol level positive on admission. Last admits to drinking 4 beers last night. - No current signs/symptoms of withdrawal and no known prior history of withdrawal. - Continue AWSS - Given IV thiamine/banana bag - Continue oral vitamin repletion & electrolyte repletion PRN - PT/OT ordered (7) Rheumatoid arthritis: No active flare. - Held Plaquenil initially, but I do not think she is septic, so I restarted it on 10/23. (8) Left leg pain: Patient reports painful to walk on this but unclear for how long. Ankle appears to be chronically plantar-flexed. No spasm present to suggest this is from hypocalcemia. - US venous doppler on 10/22 showed no DVT. - Resolved by 10/22; monitor (9) Tobacco use disorder: - Consider nicotine patch if having cravings (10) DVT prophylaxis: SCDs - Chemical VTE prophylaxis contraindicated due to suspected UGI bleed. Admission and Anticipated Discharge Date Admission Date: October 22, 2019 Subjective In better spirits today. Happy to eat food. No tremors or indication of withdrawal. Reports no fevers/chills, chest pain, shortness of breath, abdominal pain, nausea, or vomiting. Physical Exam Constitutional: + disheveled and + lethargic; + not healthy appearing Eyes: EOM intact bilaterally; no conjunctival abnormality ENMT: external ear and nose normal, oropharynx normal Neck: trachea midline, no thyromegaly normal visual inspection Respiratory: normal respiratory effort, lungs clear to auscultation no respiratory distress Cardiovascular: RRR, no murmur, no edema Gastrointestinal (Abdomen): Inspection/Auscultation: abdomen normal to inspection and normal bowel sounds; abdomen not distended Percussion/Palpation: abdomen soft; abdomen nontender, no guarding and abdomen not rigid Musculoskeletal: no cyanosis or clubbing, extremities motor strength 5/5 Skin: no rashes, warm and dry Neurologic: moves all extremities and awake Psychiatric: Orientation: alert, oriented to person and cooperative Results & Data Results & Data ([facility]) Vital Signs (Past 12 Hours) Vital Signs Temp Pulse Pulse Resp BP BP Pulse Ox 10/24/19 14:46 83 10/24/19 11:51 37.0 C 80 20 90/60 L 94 10/24/19 08:02 37.0 C 80 18 88/54 L 94 10/24/19 07:14 70 10/24/19 05:18 85/43 L 10/24/19 04:27 37.1 C 78 18 74/35 L 95 PG Care Time/CCT Total # of Minutes Spent Total Time Spent with Patient: Total time spent is greater than 50% in coordination of care (as documented) at patient's floor/unit and/or counseling patient: Coding Level of Care Code 91799 Subseq Hosp Care Lvl 3 Diagnoses Hypotension I95.9 GI bleed K92.1 GI bleed type/associated pathology: melena Anemia D64.9 Anemia type: unspecified type Diarrhea R19.7 Diarrhea type: unspecified type Hyponatremia E87.1 Alcohol use disorder Rheumatoid arthritis M06.9 Rheumatoid arthritis location: unspecified site Left leg pain M79.605 Tobacco use disorder F17.200 DVT prophylaxis Z29.9 (1) GI bleed GI bleed type/associated pathology: melena Qualified Code(s): K92.1 - Melena (2) Anemia Anemia type: unspecified type Qualified Code(s): D64.9 - Anemia, unspecified (3) Diarrhea Diarrhea type: unspecified type Qualified Code(s): R19.7 - Diarrhea, unspecified (4) Rheumatoid arthritis Rheumatoid arthritis location: unspecified site
[2019-10-24] MEDS: cefTRIAXone SODIUM 2,000 MG in DEXTROSE 5% 50 ML IV SCH (17:13)
[2019-10-24] MEDS: HYDROXYCHLOROQUINE SULFATE 200 MG TAB PO SCH (20:37)
[2019-10-24] MEDS: ACETAMINOPHEN 325 MG TAB PO PRN (21:19)
[2019-10-25] MEDS: ACETAMINOPHEN 325 MG TAB PO PRN (05:14)
[2019-10-25 06:37] LABS: Hematocrit (blood only) 25.2 % (37-47); Hemoglobin 9.1 g/dL (12.0-16.0); Mean Corpuscular Hemoglobin 34.6 pg (25-34); Mean Corpuscular Hgb Conc 36.1 g/dL (32-36); Mean Corpuscular Volume 95.8 fL (80-100); Mean Platelet Volume 8.7 fL (7.4-10.4); Platelet Count 167 K/uL (130-400); RDW Coefficient of Variation 14.6 % (11.5-14.5); RDW Standard Deviation 50.9 fL (36.4-46.3); Red Blood Count 2.63 M/uL (4.2-5.4)
[2019-10-25 07:19] LABS: Alanine Aminotransferase 18 U/L (12-78); Albumin Globulin Ratio 0.6 (0.9-2); Albumin Level 1.6 gm/dl (3.4-5.0); Alkaline Phosphatase 125 U/L (45-117); Aspartate Aminotransferase 18 U/L (15-37); Bilirubin,Total 0.3 mg/dl (0.2-1); Blood Urea Nitrogen < 1 mg/dl (7-18); Carbon Dioxide 20 mmol/L (21-32); Chloride 107 mmol/L (98-107); Creatinine Clr Calc Pharmacy 123.1 ml/min; Est GFR (African American) 130.9; Est GFR (Non-African American) 112.9; Globulin 2.7 gm/dl (2.5-4.0); Glucose 79 mg/dl (70-99); Magnesium 1.6 mg/dl (1.8-2.4); Phosphorus 2.2 mg/dl (2.5-4.9); Potassium 3.7 mmol/L (3.5-5.1); Sodium 134 mmol/L (136-145); Total Protein 4.3 gm/dl (6.4-8.2)
[2019-10-25] MEDS: PANTOprazole 40 MG TAB PO SCH ×2 (08:44→20:46)
[2019-10-25] MEDS ORDERED: THIAMINE HCL 100 MG TAB PO SCH (09:00)
[2019-10-25] MEDS: MAGNESIUM SULFATE / D5W 1 GM/100 ML BAG IV SCH ×2 (09:37→10:02)
[2019-10-25] MEDS: FOLIC ACID 1 MG TAB PO SCH (09:43)
[2019-10-25] MEDS: PRAVASTATIN SOD 10 MG TAB PO SCH (09:43)
[2019-10-25] MEDS: HYDROXYCHLOROQUINE SULFATE 200 MG TAB PO SCH ×2 (09:43→21:48)
[2019-10-25] MEDS: MULTIVITAMIN TAB PO SCH (09:43)
[2019-10-25] MEDS: CHOLECALCIFEROL 1,000 UNITS 25 MCG TAB PO SCH (09:43)
[2019-10-25] MEDS: cephALEXin 500 MG CAP PO SCH ×2 (10:02→20:44)
[2019-10-25] MEDS: POT PHOSPHATE MONOBASIC W/ SOD TAB PO SCH ×4 (10:02→20:45)
--- NOTE | 2019-10-25 11:24 | Hospitalist Progress Note ---
Date of Service October 25, 2019 Assessment & Plan (1) Bronchitis, acute: significant tobacco history. URI symptoms for several days. now b/l wheezing with no evidence of pneumonia on cxr obtained today. I assume she has underlying COPD from years of smoking. start prednisone 60mg daily. add atrovent to her xopenex nebs. pulmonary toilet. antibiotics for UTI may cover the pulmonary tree as well. (2) Urinary tract infection: 2nd e. coli. pansensitive. stop rocephin. change to keflex 500mg BID. treat total 7 days of IV/PO abx. (3) Hypotension: appears that baseline systolic BPs are 90s. not symptomatic at these levels. recent cortisol level wnl. H/H mildly low but stable. no evidence of volume contraction. no evidence of sepsis. follow BPs carefully. (4) GI bleed: s/p 1 unit PRBCs this admission with stable H/H since. anemia appears chronic. check iron studies in am. s/p GI consultation - feel that no active bleeding is occurring. will need outpatient endoscopy. (5) Anemia: B12/folate normal. Check ferritin in am. (6) Diarrhea: Improved. c diff still pending. (7) Hyponatremia: Suspected GI loss and beer potomania. Improved; nearly normal today. Eating/drinking well. NO further IVF. BMP in am. (8) Alcohol use disorder: - No current signs/symptoms of withdrawal and no known prior history of withdrawal - Continue AWSS - Continue thiamine and folic acid (9) Rheumatoid arthritis: cont plaquenil (10) Tobacco use disorder: primary counselor to quit (11) DVT prophylaxis: SCDs - Chemical VTE prophylaxis contraindicated due to concern for occult GI bleeding cont PT/OT left message for significant other Admission and Anticipated Discharge Date Admission Date: October 22, 2019 Subjective pt sitting in chair at bedside feeling "much better" today she had spent most of last few days in bed and is now out in the chair felt good to do this denies pain in any location has had nasal congestion with cough "for a few days" current smoker - said it was a "cigarette cough" denied dyspnea no obvious blood per rectum no abdominal pain diarrhea improved Review of Systems Constitutional: + fatigue; no fever, no chills and no anorexia Cardiovascular: no chest pain Gastrointestinal: no abdominal pain Physical Exam Constitutional: + frail appearing (looks much older than stated age); no acute distress and no altered mental status ENMT: external ear and nose normal, oropharynx normal Respiratory: + cough; no respiratory distress Auscultation: + crackles (b/l) and + wheezes (b/l) Cardiovascular: Rate/Rhythm: regular rate and regular rhythm Heart Sounds: normal S1 and normal S2; no murmur Vessels: posterior tibial pulses present and dorsalis pedis pulses present; no JVD Extremities: no edema Gastrointestinal (Abdomen): normal bowel sounds, soft, nontender, no hepatosplenomegaly Musculoskeletal: mild synovitis of several small joints of both hands; bony changes c/w rheumatoid both hands and other small joints; kyphosis of back Skin: + pallor; no rashes Psychiatric: A+Ox3, euthymic affect no signs of etoh withdrawal Results & Data Results & Data ([facility]) Vital Signs (Past 12 Hours) Vital Signs Temp Pulse Resp BP Pulse Ox 10/25/19 08:12 36.8 C 73 20 95/62 L 93 Laboratory Results Laboratory Results - last 24 hr 10/24/19 10/24/19 10/25/19 11:33 Unknown 05:30 WBC RBC Hgb Hct MCV MCH MCHC RDW Std Deviation RDW Coeff of Elo Plt Count MPV Sodium Potassium Chloride Carbon Dioxide Anion Gap BUN Creatinine Est Cr Clr Drug Dosing Est GFR ( Amer) Est GFR (Non-Af Amer) BUN/Creatinine Ratio Glucose POC Glucose 97 Calcium Phosphorus Magnesium Total Bilirubin AST ALT Alkaline Phosphatase Total Protein Albumin Globulin Albumin/Globulin Ratio Stool Occult Bld Scrn Negative Stl C. diff Tox B Gene Cancelled 10/25/19 10/25/19 06:15 06:15 WBC 3.50 L RBC 2.63 L Hgb 9.1 L Hct 25.2 L MCV 95.8 MCH 34.6 H MCHC 36.1 H RDW Std Deviation 50.9 H RDW Coeff of Elo 14.6 H Plt Count 167 MPV 8.7 Sodium 134 L Potassium 3.7 D Chloride 107 Carbon Dioxide 20 L Anion Gap 7.0 BUN < 1 L Creatinine 0.43 L Est Cr Clr Drug Dosing 123.1 Est GFR ( Amer) 130.9 Est GFR (Non-Af Amer) 112.9 BUN/Creatinine Ratio TNP Glucose 79 POC Glucose Calcium 7.0 L Phosphorus 2.2 L Magnesium 1.6 L Total Bilirubin 0.3 AST 18 ALT 18 Alkaline Phosphatase 125 H Total Protein 4.3 L Albumin 1.6 L Globulin 2.7 Albumin/Globulin Ratio 0.6 L Stool Occult Bld Scrn Stl C. diff Tox B Gene PG Care Time/CCT Total # of Minutes Spent Total Time Spent with Patient: Total time spent is greater than 50% in coordination of care (as documented) at patient's floor/unit and/or counseling patient: Coding Level of Care Code 35644 Subseq Hosp Care Lvl 3 Diagnoses Bronchitis, acute J20.9 Urinary tract infection N39.0 Hypotension I95.9 GI bleed K92.1 GI bleed type/associated pathology: melena Anemia D64.9 Anemia type: unspecified type Diarrhea R19.7 Diarrhea type: unspecified type Hyponatremia E87.1 Alcohol use disorder Rheumatoid arthritis M06.9 Rheumatoid arthritis location: unspecified site Tobacco use disorder F17.200 DVT prophylaxis Z29.9 (1) Rheumatoid arthritis Rheumatoid arthritis location: unspecified site (2) GI bleed GI bleed type/associated pathology: melena Qualified Code(s): K92.1 - Melena (3) Anemia Anemia type: unspecified type Qualified Code(s): D64.9 - Anemia, unspecified (4) Diarrhea Diarrhea type: unspecified type Qualified Code(s): R19.7 - Diarrhea, unspecified
[2019-10-25] MEDS: ALBUT/IPRATROP 3MG/0.5MG NEB 3 ML VIAL NEB SCH ×3 (11:42→19:39)
[2019-10-25] MEDS: guaiFENesin 600 MG TABCR PO SCH ×2 (12:25→20:45)
[2019-10-25] MEDS: predniSONE 20 MG TAB PO SCH (12:26)
[2019-10-25] MEDS: THIAMINE HCL 100 MG TAB PO SCH ×2 (12:26→20:47)
--- NOTE | 2019-10-25 13:33 | XRay Report ---
XR chest 2V PA/lateral CLINICAL HISTORY: Bilateral wheezing COMPARISON STUDY: 10/22/2019 FINDINGS: The cardiac and mediastinal contours remain stable. There is no focal pulmonary consolidati on. There are multiple old bilateral rib fractures. There are small bilateral pleural effusions left greater than right. Postsurgical changes involve both clavicles. There is an old proximal right humer al fracture.[ IMPRESSION: Interval development of small bilateral pleural effusions left greater than right. No walt dence of focal pulmonary consolidation ACT 112: Negative or not required by law. Electronically signed by: Warren Bautista M.D. 10/25/2019 1:31 PM
[2019-10-26 07:15] LABS: Hematocrit (blood only) 27.1 % (37-47); Hemoglobin 9.3 g/dL (12.0-16.0); Mean Corpuscular Hemoglobin 32.9 pg (25-34); Mean Corpuscular Hgb Conc 34.3 g/dL (32-36); Mean Corpuscular Volume 95.8 fL (80-100); Platelet Count 204 K/uL (130-400); RDW Coefficient of Variation 14.4 % (11.5-14.5); RDW Standard Deviation 50.3 fL (36.4-46.3); Red Blood Count 2.83 M/uL (4.2-5.4); White Blood Count 3.26 K/uL (4.8-10.8)
[2019-10-26] MEDS: ALBUT/IPRATROP 3MG/0.5MG NEB 3 ML VIAL NEB SCH ×4 (07:27→19:28)
[2019-10-26 07:44] LABS: BUN Creatinine Ratio 3.3 (10-20); Calcium 7.3 mg/dl (8.5-10.1); Creatinine Clr Calc Pharmacy 155.7 ml/min; Est GFR (African American) 141.4; Ferritin 648.6 ng/ml (8-388); Magnesium 1.4 mg/dl (1.8-2.4)
[2019-10-26] MEDS: MAGNESIUM SULFATE / D5W 1 GM/100 ML BAG IV SCH ×3 (08:59→13:36)
[2019-10-26] MEDS: guaiFENesin 600 MG TABCR PO SCH ×2 (09:03→20:20)
[2019-10-26] MEDS: FOLIC ACID 1 MG TAB PO SCH (09:03)
[2019-10-26] MEDS: cephALEXin 500 MG CAP PO SCH ×2 (09:03→20:20)
[2019-10-26] MEDS: PANTOprazole 40 MG TAB PO SCH ×2 (09:04→20:20)
[2019-10-26] MEDS: THIAMINE HCL 100 MG TAB PO SCH ×2 (09:04→20:21)
[2019-10-26] MEDS: PRAVASTATIN SOD 10 MG TAB PO SCH (09:04)
[2019-10-26] MEDS: CHOLECALCIFEROL 1,000 UNITS 25 MCG TAB PO SCH (09:04)
[2019-10-26] MEDS: MULTIVITAMIN TAB PO SCH (09:04)
[2019-10-26] MEDS: POT PHOSPHATE MONOBASIC W/ SOD TAB PO SCH ×4 (09:04→20:20)
[2019-10-26] MEDS: predniSONE 20 MG TAB PO SCH (09:04)
[2019-10-26] MEDS: HYDROXYCHLOROQUINE SULFATE 200 MG TAB PO SCH ×2 (10:32→20:19)
--- NOTE | 2019-10-26 18:52 | Hospitalist Progress Note ---
Date of Service October 26, 2019 Assessment & Plan (1) Bronchitis, acute: improved with bronchodilators and prednisone. will lower prednisone dose to 40mg daily. cont pulmonary toilet. suspect she probably has underlying COPD. antibiotics for UTI may cover the pulmonary tree as well. (2) Urinary tract infection: 2nd e. coli. pansens. cont keflex 500mg BID. treat total 7 days of IV/PO abx. (3) Hypotension: appears that baseline systolic BPs are 90s. not symptomatic at these levels. recent cortisol level wnl. H/H mildly low but stable. no evidence of volume contraction. no evidence of sepsis. follow BPs carefully. (4) GI bleed: s/p 1 unit PRBCs this admission with stable H/H since. anemia appears chronic. Fe studies more c/w anemia of chronic disease. s/p GI consultation - feel that no active bleeding is occurring. will need outpatient endoscopy. (5) Anemia: B12/folate normal. Ferritin and transferrin sat suggest adequate Fe storage levels. h/h low but stable. (6) Diarrhea: Improved/resolved. uncertain etiology. (7) Hyponatremia: Suspected GI loss and beer potomania. Improved; nearly normal again today at 134. bmp in am. (8) Alcohol use disorder: - No current signs/symptoms of withdrawal and no known prior history of withdrawal - Continue AWSS - Continue thiamine and folic acid (9) Rheumatoid arthritis: cont plaquenil might have mild flare- prednisone for bronchitis will help. 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 (11) Hypomagnesemia: 3 grams mag sulfate IV today repeat mag level am (12) DVT prophylaxis: SCDs - Chemical VTE prophylaxis contraindicated due to concern for occult GI bleeding cont PT/OT SNF placement for rehab needs COVID screening test for placement progressing nicely Admission and Anticipated Discharge Date Admission Date: October 22, 2019 Subjective patient feeling "really good" today appetite improved overall strength is better no cough no dyspnea no wheeze today she knows that rehab has been recommended and is agreeable to such Review of Systems Constitutional: no fever and no chills Respiratory: no dyspnea Cardiovascular: no chest pain Gastrointestinal: no abdominal pain Physical Exam 2 Constitutional: + frail appearing (looks much older than stated age); no acute distress and no altered mental status ENMT: external ear and nose normal, oropharynx normal Respiratory: no respiratory distress Auscultation: no crackles and no wheezes Cardiovascular: Rate/Rhythm: regular rate and regular rhythm Heart Sounds: normal S1 and normal S2; no murmur Vessels: posterior tibial pulses present and dorsalis pedis pulses present; no JVD Extremities: no edema Gastrointestinal (Abdomen): normal bowel sounds, soft, nontender, no hepatosplenomegaly Skin: + pallor; no rashes Psychiatric: A+Ox3, euthymic affect Results & Data Results & Data ([facility]) Vital Signs (Past 12 Hours) Vital Signs Temp Pulse Resp BP Pulse Ox 10/26/19 15:41 36.6 C 88 20 91/60 L 99 10/26/19 15:26 84 14 98 10/26/19 11:18 76 16 98 10/26/19 07:46 36.6 C 65 20 93/64 L 100 10/26/19 07:29 68 16 97 Laboratory Results Laboratory Results - last 24 hr 10/26/19 10/26/19 10/26/19 06:49 06:49 14:49 WBC 3.26 L RBC 2.83 L Hgb 9.3 L Hct 27.1 L MCV 95.8 MCH 32.9 MCHC 34.3 RDW Std Deviation 50.3 H RDW Coeff of Elo 14.4 Plt Count 204 MPV 9.0 Sodium 134 L Potassium 4.0 Chloride 106 Carbon Dioxide 22 Anion Gap 6.0 BUN 1 L Creatinine 0.34 L Est Cr Clr Drug Dosing 155.7 Est GFR ( Amer) 141.4 Est GFR (Non-Af Amer) 122.0 BUN/Creatinine Ratio 3.3 L Glucose 145 H Calcium 7.3 L Magnesium 1.4 L Ferritin 648.6 H Specimen Hemolysis SARS-CoV-2 RNA (RT-PCR) Pending PG Care Time/CCT Total # of Minutes Spent Total Time Spent with Patient: Total time spent is greater than 50% in coordination of care (as documented) at patient's floor/unit and/or counseling patient: Coding Level of Care Code 95731 Subseq Hosp Care Lvl 2 Diagnoses Bronchitis, acute J20.9 Urinary tract infection N39.0 Hypotension I95.9 GI bleed K92.1 GI bleed type/associated pathology: melena Anemia D64.9 Anemia type: unspecified type Diarrhea R19.7 Diarrhea type: unspecified type Hyponatremia E87.1 Alcohol use disorder Rheumatoid arthritis M06.9 Rheumatoid arthritis location: unspecified site Tobacco use disorder F17.200 Hypomagnesemia E83.42 DVT prophylaxis Z29.9 (1) Rheumatoid arthritis Rheumatoid arthritis location: unspecified site (2) GI bleed GI bleed type/associated pathology: melena Qualified Code(s): K92.1 - Melena (3) Anemia Anemia type: unspecified type Qualified Code(s): D64.9 - Anemia, unspecified (4) Diarrhea Diarrhea type: unspecified type Qualified Code(s): R19.7 - Diarrhea, unspecified
[2019-10-27] MEDS: ALBUT/IPRATROP 3MG/0.5MG NEB 3 ML VIAL NEB SCH ×3 (07:05→14:53)
[2019-10-27 08:32] LABS: BUN Creatinine Ratio 7.8 (10-20); Creatinine Clr Calc Pharmacy 151.3 ml/min; Est GFR (Non-African American) 120.8; Magnesium 1.8 mg/dl (1.8-2.4); Potassium 4.2 mmol/L (3.5-5.1)
[2019-10-27] MEDS ORDERED: predniSONE 20 MG TAB PO SCH (09:00)
[2019-10-27] MEDS: guaiFENesin 600 MG TABCR PO SCH (09:45)
[2019-10-27] MEDS: cephALEXin 500 MG CAP PO SCH (09:46)
[2019-10-27] MEDS: CHOLECALCIFEROL 1,000 UNITS 25 MCG TAB PO SCH (09:46)
[2019-10-27] MEDS: PANTOprazole 40 MG TAB PO SCH (09:46)
[2019-10-27] MEDS: MULTIVITAMIN TAB PO SCH (09:47)
[2019-10-27] MEDS: PRAVASTATIN SOD 10 MG TAB PO SCH (09:47)
[2019-10-27] MEDS: FOLIC ACID 1 MG TAB PO SCH (09:47)
[2019-10-27] MEDS: POT PHOSPHATE MONOBASIC W/ SOD TAB PO SCH ×3 (09:47→17:22)
[2019-10-27] MEDS: THIAMINE HCL 100 MG TAB PO SCH (09:48)
[2019-10-27] MEDS: HYDROXYCHLOROQUINE SULFATE 200 MG TAB PO SCH (10:10)
--- NOTE | 2019-10-27 11:54 | Discharge Summary ---
Date of Service date of admission - October 22, 2019 date of discharge - October 27, 2019 Admission HPI Per Admitting Provider Lydia Oden 58-year-old female with rheumatoid arthritis who presents the ER via ALS due to two falls. The patient reports mobilizing with a walker for the past 2 years due to decreased balance. On this occasion she denies any prodromal symptoms. She reports tripping over her step and falling backwards hitting her head on the ground. No LOC. No vision, hearing, speech changes. She does difficulty lifting her left leg but this has been ongoing for some time (unclear how long). She also has pain on walking on her left leg but again it is unclear whether this is acute (she told the ER 8 months but could not give me a time). She reports not eating or drinking well in the last 4 days. She has lost her appetite because she tells me she does have any teeth although she has also not had any teeth for many years. She has been nauseous but not vomiting and been having diarrhea. With regards to alcohol use. EMS noted several bottles of alcohol in the apartme nt. Alcohol level in ER 33.6. She last admits to have approximately 4 beers last night. She denies excessive alcohol use. Denies any prior withdrawals. On discussion with her half-way partner Blanco. He reports she has been having diarrhea for 2 days. He is out of the house a lot for work so does not see her some days. He won't tell me how much alcohol she drinks as he does know exactly how much as he is out of the house and he does want to get blamed by her for telling me but also suggests she drinks a lot of beer. No hard liquor. She has been to rehab previously but he says it doesn't work. He feels he needs to just hide his alcohol better. He notes she just doesn't eat. He tries to make it as easy as possible for her to eat by making her things that don't require teeth to eat them. We discussed the illness of alcohol use disorder and how alcohol can lead to prioritizing alcohol over everything else in life including nutrition. Principal Diagnosis falls, UTI, alcohol abuse, electrolyte disturbances (hyponatremia, hypomagnesemia), anemia Discharge Exam Constitutional + frail appearing (looks much older than stated age); no acute distress and no altered mental status ENMT external ear and nose normal, oropharynx normal Respiratory no respiratory distress Auscultation: no crackles and no wheezes Cardiovascular Rate/Rhythm: regular rate and regular rhythm Heart Sounds: normal S1 and normal S2; no murmur Vessels: posterior tibial pulses present and dorsalis pedis pulses present; no JVD Extremities: no edema Gastrointestinal (Abdomen) normal bowel sounds, soft, nontender, no hepatosplenomegaly Musculoskeletal rheumatoid changes of b/l hands, small joints; several joints with active synovitis Skin + pallor; no rashes Psychiatric A+Ox3, euthymic affect Discharge Data Allergies Allergy/AdvReac Type Severity Reaction Status Date / Time Penicillins Allergy Mild rash Verified 10/22/19 15:46 Consultations [facility] Health Information Management PT, OT Procedures Performed PRBCs x [address] cervical spine wo con - no fractures CT head/brain wo con - no fractures or ICH CT lumbar spine wo con - no acute fractures; severe DJD CT abd pelvis IV con only - gallstones; no acute intra-abdominal injury CT chest w con - old rib fractures and post-op changes of the left shoulder and clavicles; no infiltrates or acute findings US venous doppler LE LT - no DVT left leg US abdomen limited - gallstones; normal liver; no acute cholecystitis Hospital Course (1) Frequent falls: multiple falls prior to admission, likely due to electrolyte disturbances, volume contraction, chronic balance issues, and concomitant alcohol use. received PT/OT - both advised inpatient rehab. transferring to [facility] for such. (2) Hyponatremia: Suspected GI loss and beer potomania. Presenting Na level was 124, improving to 134 at discharge. (3) Bronchitis, acute: improved with bronchodilators and prednisone. will complete prednisone taper post-discharge. cont pulmonary toilet. suspect she probably has underlying COPD from long-standing tobacco use history. lung exam was much improved prior to discharge. (4) Urinary tract infection: 2nd e. coli. pansens. cont keflex 500mg BID. treat total 7 days of IV/PO abx. (5) Hypotension: appears that baseline systolic BPs are 90s. not symptomatic at these levels. recent cortisol level wnl. H/H mildly low but stable. no evidence of sepsis from UTI. (6) GI bleed: s/p 1 unit PRBCs this admission with stable H/H since. anemia appears chronic. Fe studies more c/w anemia of chronic disease. s/p GI consultation - felt that she had NO active bleeding during the stay. With that said will need outpatient endoscopy. Presenting Hb was 7.6, improving to 9.3 post-transfusion and remaining stable prior to discharge. (7) Anemia: B12/folate normal. Ferritin and transferrin sat suggest adequate Fe storage levels and thus anemia of chronic disease. h/h low but stable as noted above. s/p 1 unit PRBCs this admission. could rheumatoid arthritis be contributing to chronic anemia? (8) Diarrhea: Improved/resolved. uncertain etiology. (9) Alcohol use disorder: Did not have signs/symptoms of withdrawal while hospitalized. no known prior history of withdrawal. finish course of thiamine and folic acid (10) Rheumatoid arthritis: cont plaquenil. might have had mild flare- prednisone for bronchitis will help. (11) Tobacco use disorder: counseled to quit (12) Hypomagnesemia: required copious amounts of magnesium repletion but ultimately mag level did normalize. likely 2nd to alcohol abuse and poor oral intake. Total Time Total Time Spent Total Time Spent (In Minutes): 45 Total Time Includes: Examination of the Patient, Discharge Planning and Medication Reconciliation Discharge Plan Discharge Items Patient Disposition: Transfer Inpatient Rehab Fac Reason For Visit: SUSPECTED GI BLEED,LOW MAGNESIUM/POTASSIUM Discharge Diagnosis: 1. urinary tract infection - resolved 2. acute bronchitis - resolved 3. low magnesium - resolved 4. low potassium - resolved 5. anemia 6. rheumatoid arthritis with mild flare Activity: Resume your previous activity Non-emergency contact: Primary Care Provider and Hat Sizer Call non-emergency contact if: you have any medication questions, your symptoms worsen and you have a fever Follow-up/Referrals: Piyush Newby MD [Physician] - (see [facility] within 2 weeks of discharge for consideration of endoscopies ) Darian Lopez [Primary Care Provider] - (see Dr Lopez after discharge from [facility] ) Diet: Regular Diet Texture: Easy to Chew Addtl Attending Provider Instructions: Patient was treated for problems listed in "Discharge Diagnoses" above. Recommend repeat CBC, BMP, and magnesium level in 3-4 days post-discharge to ensure stability. Results to medical language specialist. Patient's baseline systolic blood pressures appear to run about 100-110 at baseline. Patient will need follow-up with [facility] for consideration of endoscopies for anemia. The anemia is likely multifactorial, however, and possibly even related to her rheumatoid arthritis. Pending Studies at Discharge: No Stand-Alone Forms: My [facility] Skilled Items Patient informed of condition?: Yes DNR: No Discharge Level of Care: Acute rehab Communicable Disease: No Discharge Prognosis: Improving Lines: None Urinary Catheter: No Medications and DC Order Prescriptions: New pantoprazole 40 mg Tablet,Delayed Release (Dr/Ec) 40 mg PO BID Qty: 60 RF: 2 prednisone 10 mg tablet 10 mg PO DIRECTED Qty: 12 RF: 0 magnesium oxide 400 mg magnesium capsule 400 mg PO DAILY Qty: 30 RF: 1 potassium chloride 10 mEq capsule, extended release 10 meq PO DAILY Qty: 30 RF: 1 ipratropium-albuterol 0.5 mg-3 mg(2.5 mg base)/3 mL Solution For Nebulization 3 ml NEB QID Qty: 1 RF: 0 Continued multivitamin [Daily-Matthew] Tablet 1 tab PO DAILY RF: 0 pravastatin 10 mg tablet 10 mg PO DAILY RF: 0 folic acid 1 mg tablet 1 mg PO DAILY RF: 0 hydroxychloroquine 200 mg tablet 200 mg PO BID RF: 0 cholecalciferol (vitamin D3) [Vitamin D3] 50 mcg (2,000 unit) capsule 2,000 mcg PO DAILY RF: 0 Changed thiamine HCl (vitamin B1) 100 mg tablet 200 mg PO BID Qty: 0 RF: 0 Discontinued meloxicam 15 mg tablet 15 mg PO DAILY RF: 0 potassium chloride 10 mEq tablet extended release 20 meq PO BID RF: 0 amlodipine 5 mg tablet 5 mg PO DAILY RF: 0 furosemide 20 mg tablet 20 mg PO DAILY RF: 0 Discharge Orders: Discharge Order (Routine); Ordered 10/27/19 Ordered By: Chele Sun Admission Data Admit Date/Time: 10/22/19 19:00 Attending Provider: Chele Sun Admit Provider: Chele Paez Primary Care Provider: Darian Lopez Other Providers: Piyush Newby ; [facility] Other Interventions: Discharge Summary Assessment (RN) Last Done: 10/27/19 13:06 DC Date/Time DO NOT enter until pt leaves facility: 10/27/19 18:00 Coding Level of Care Code D/C Day Management >30 mins Diagnoses Frequent falls R29.6 Hyponatremia E87.1 Bronchitis, acute J20.9 Urinary tract infection N39.0 Hypotension I95.9 GI bleed K92.1 GI bleed type/associated pathology: melena Anemia D64.9 Anemia type: unspecified type Diarrhea R19.7 Diarrhea type: unspecified type Alcohol use disorder Rheumatoid arthritis M06.9 Rheumatoid arthritis location: unspecified site Tobacco use disorder F17.200 Hypomagnesemia E83.42
== END 2019-10-27 18:00 | DRG 690 ==
LOC: ED 13:48 → 2S 19:00 → SUATTDRO 19:00 → 2S 19:33 → 2W 10-24 16:30

== ENCOUNTER 2021-02-24 21:53 | Inpatient (IN) ==
[2021-02-24] MEDS ORDERED: ONDANSETRON INJ 2 MG/ML 2 ML VIAL IV STA (22:02)
[2021-02-24] MEDS ORDERED: MoRPHine SULFATE 4 MG/ML 1 ML CARP\\VIAL IV STA (22:02)
[2021-02-24] MEDS ORDERED: SODIUM CHLORIDE 0.9% 500 ML IV STA (22:02)
--- NOTE | 2021-02-24 22:05 | Emergency Department Note ---
Impression & Plan UTI (urinary tract infection) Admission ED Provider Note HPI: The patient is a 60-year-old female who presents to the emergency department the chief complaint of nausea and vomiting for 5 days. Patient states she has generalized abdominal pain as well. She states that she has had diarrhea, patient states that she has been unable to get up and use the restroom at home. She states that she generally just feels too weak to do this. On arrival here to the ED the patient is hypotensive in the 80s systolic, she is mildly tachycardic, she states that she contacted EMS because her was sleeping and she did not have a ride to the hospital. She states that she has not been able to get up and move around her house very well recently. She denies any recent fevers, denies any chest pain or shortness of breath. Patient is alert on arrival, she is saturating well on room air. ROS: -GI: Abdominal pain, nausea and vomiting, diarrhea, incontinence -Skin: Excoriation of buttocks area *10 point review systems was conducted and is otherwise negative unless stated above *Outpatient medications and allergy history reviewed PE: General: Frail-appearing, alert HEENT: Normocephalic, atraumatic, trachea midline Eyes: Extraocular eye movement is intact, no scleral erythema Pulmonary: Clear to auscultation bilaterally, no wheezing Cardio: Tachycardic rate and regular rhythm GI: Abdomen is tender diffusely to palpation, there is no guarding or rigidity, no distention : Mild suprapubic tenderness, no flank tenderness MSK: No evidence of trauma or malformation of the extremities, no edema Skin: There is superficial excoriation of the buttocks bilaterally with very mild active bleeding Neuro: Alert, no focal deficits Psychiatric: Cooperative groundwater monitoring technician: Order for groundwater monitoring technician was placed, patient is noted to be in sinus rhythm with a regular rate EKG: Normal sinus rhythm with a rate of 91, intervals are within normal limits Medical Decision Making: -Patient presented to the emergency department with hypotension, tachycardia, generalized deconditioning, abdominal pain, nausea and vomiting. She also states that she has had diarrhea and she does have excoriation around her buttocks as she states she has been unable to get to the bathroom and wipe herself. Lab work shows evidence of slight hypokalemia of 2.9, this was ordered to be repleted orally, lactic acid is within normal limits, patient has leukopenia but this appears to be baseline. Her hemoglobin is slightly low at 10.3, she has a history of anemia and is actually slightly higher than her baseline. Patient is also noted to be hyponatremic natremia at 129, slight metabolic acidosis with a serum bicarbonate level of 19. Patient was given IV fluids here in the ED, her blood pressure did improve into the high 80s systolic which also appears to be close to her baseline blood pressure upon review of previous discharge summaries. Patient was given 1.5 L normal saline bolus, she did receive approximately 200 cc of IV fluid prior to arrival via EMS. She was not given any further fluid secondary to baseline blood pressure and improvement in tachycardia. CT scan of the abdomen and pelvis does not show any evidence of acute surgical abnormality, there is evidence of what appears to be gastroenteritis, urinalysis was obtained and is consistent with urinary tract infection, blood cultures were drawn in the ED, patient was treated with IV ceftriaxone. On my reassessment the patient states that she still does have some abdominal discomfort following IV morphine and IV Zofran, she states that she is unable to take care of herself at home, states that she feels that she needs to be admitted to the hospital. Given her hypotension in addition to urinary tract infection and tachycardia upon presentation that did resolve with IV fluids, I think it is reasonable to admit the patient for her diarrhea and generalized deconditioning as well as urinary tract infection. We will send C. difficile testing. Will arrange for admission through the hospitalist service. * Diagnosis: Generalized deconditioning, urinary tract infection, hypokalemia, hyponatremia * Disposition: Admission Earl Jennings DO Emergency Medicine Past Med/Surg History Medical History (Updated 02/25/21 @ 01:34 by Earl Jennings DO) Hypertension Hypokalemia Hyponatremia Hypotension Surgical History S/P section Family History Other No significant family history Social History Smoking Status: Current every day smoker Cigarettes Per Day: 1-2/day; Second Hand Exposure: No; Hx Alcohol Use: Yes Alcohol type: beer Hx Substance Use: No Preferred Language: Wallisian Communication Ability: Effective Butcher Scullion Required: No Beliefs That Will Affect Care: None marital status: Life Partner Current Living Situation: Significant Other current occupational status: unemployed Feels Safe at Home: Yes Assistive Devices: Glasses and Walker Allergies Allergies Allergy/AdvReac Type Severity Reaction Status Date / Time Penicillins Allergy Mild rash Verified 02/24/21 22:34 Home Meds Home Medications Medication Instructions Recorded Confirmed cholecalciferol (vitamin D3) 50 2,000 mcg PO DAILY 06/19/19 02/24/21 mcg (2,000 unit) capsule (Vitamin D3) folic acid 1 mg tablet 1 mg PO DAILY 06/19/19 02/24/21 hydroxychloroquine 200 mg tablet 200 mg PO BID 06/19/19 02/24/21 multivitamin (Daily-Matthew) 1 tab PO DAILY 06/19/19 02/24/21 pravastatin 10 mg tablet 10 mg PO DAILY 06/19/19 02/24/21 alendronate 70 mg tablet 70 mg PO WK 02/24/21 02/24/21 amlodipine 5 mg tablet 5 mg PO DAILY 02/24/21 02/24/21 ferrous sulfate 325 mg (65 mg 325 mg PO BID 02/24/21 02/24/21 iron) tablet fluticasone propionate 50 2 spray INTRANASAL DAILY 02/24/21 02/24/21 mcg/actuation nasal spray,suspension ipratropium 0.5 mg-albuterol 3 mg 3 ml NEB QID 02/24/21 02/24/21 (2.5 mg base)/3 mL nebulization soln meloxicam 15 mg tablet 15 mg PO DAILY 02/24/21 02/24/21 pantoprazole 20 mg tablet,delayed 20 mg PO DAILY 02/24/21 02/24/21 release potassium chloride 10 mEq 20 meq PO DAILY 02/24/21 02/24/21 capsule,extended release spironolactone 25 mg tablet 25 mg PO DAILY 02/24/21 02/24/21 Previous Rx's Medication Instructions Recorded magnesium oxide 400 mg PO DAILY #30 cap 10/27/19 thiamine HCl (vitamin B1) 100 mg 200 mg PO BID #0 tab 10/27/19 tablet Results & Data (ED) Vital Signs Vital Signs - 24 hr 02/24/21 22:00 02/24/21 22:26 02/24/21 22:30 Temperature 36.8 C Temperature Source Oral Pulse Rate 113 H 98 H 102 H Pulse Rate [Right Finger] Pulse Rate from SpO2 Sensor 102 H Respiratory Rate 20 18 22 Blood Pressure 83/57 L 83/57 L Blood Pressure [Right Arm] Blood Pressure Mean 65 65 Blood Pressure Mean [Right Arm] Blood Pressure Position [Right Arm] Pulse Oximetry 96 96 Oxygen Delivery Method Room Air Sepsis New/Unexplained Change in Mental Status No Sepsis Action Taken by Nursing Physician Notified 02/24/21 23:02 02/24/21 23:30 02/25/21 00:00 Temperature Temperature Source Pulse Rate 103 H 96 H 99 H Pulse Rate [Right Finger] Pulse Rate from SpO2 Sensor Respiratory Rate 23 22 25 H Blood Pressure 93/59 L 100/62 Blood Pressure [Right Arm] Blood Pressure Mean 70 74 Blood Pressure Mean [Right Arm] Blood Pressure Position [Right Arm] Pulse Oximetry Oxygen Delivery Method Sepsis New/Unexplained Change in Mental Status Sepsis Action Taken by Nursing 02/25/21 00:08 02/25/21 00:30 02/25/21 01:00 Temperature 36.8 C Temperature Source Oral Pulse Rate 54 L 98 H Pulse Rate [Right Finger] 92 H Pulse Rate from SpO2 Sensor 99 H 99 H Respiratory Rate 20 17 20 Blood Pressure 70/43 L 84/54 L Blood Pressure [Right Arm] 84/54 L Blood Pressure Mean 52 64 Blood Pressure Mean [Right Arm] 64 Blood Pressure Position [Right Arm] Semi-fowlers Pulse Oximetry 96 97 95 Oxygen Delivery Method Room Air Sepsis New/Unexplained Change in Mental Status Sepsis Action Taken by Nursing 02/25/21 01:30 02/25/21 02:00 Temperature Temperature Source Pulse Rate 91 H 94 H Pulse Rate [Right Finger] Pulse Rate from SpO2 Sensor 92 H 94 H Respiratory Rate 16 24 Blood Pressure 84/51 L 92/51 L Blood Pressure [Right Arm] Blood Pressure Mean 62 64 Blood Pressure Mean [Right Arm] Blood Pressure Position [Right Arm] Pulse Oximetry 95 97 Oxygen Delivery Method Sepsis New/Unexplained Change in Mental Status Sepsis Action Taken by Nursing Laboratory Data Result diagrams: 02/24/21 22:50 02/24/21 22:50 Lab Results 02/24/21 02/24/21 02/25/21 Range/Units 22:50 22:50 00:10 WBC 3.72 L (4.8-10.8) K/uL RBC 3.08 L (4.2-5.4) M/uL Hgb 10.3 L (12.0-16.0) g/dL Hct 28.7 L (37-47) % MCV 93.2 (80-100) fL MCH 33.4 (25-34) pg MCHC 35.9 (32-36) g/dL RDW Std Deviation 43.7 (36.4-46.3) fL RDW Coeff of Elo 13.0 (11.5-14.5) % Plt Count 172 (130-400) K/uL MPV 9.1 (7.4-10.4) fL Immature Gran % (Auto) 0.0 % Neut % (Auto) 54.5 % Lymph % (Auto) 27.2 % [place] % (Auto) 17.5 % Eos % (Auto) 0.5 % Baso % (Auto) 0.3 % Neut # (Auto) 2.03 (1.4-6.5) K/uL Lymph # (Auto) 1.01 L (1.2-3.4) K/uL [place] # (Auto) 0.65 H (0.11-0.59) K/uL Eos # (Auto) 0.02 (0-0.5) K/uL Baso # (Auto) 0.01 (0-0.2) K/uL Immature Gran # (Auto) 0.00 (0.00-0.02) K/uL Sodium 129 L (136-145) mmol/L Potassium 2.9 L (3.5-5.1) mmol/L Chloride 96 L (98-107) mmol/L Carbon Dioxide 19 L (21-32) mmol/L Anion Gap 13.0 H (3-11) BUN 5 L (7-18) mg/dl Creatinine 0.35 L (0.6-1.2) mg/dl Est Cr Clr Drug Dosing 149.4 ml/min Est GFR ( Amer) 138.1 ml/min Est GFR (Non-Af Amer) 119.1 ml/min BUN/Creatinine Ratio 12.8 (10-20) Glucose 74 (70-99) mg/dl Lactate 0.4 (0.4-2.0) mmol/L Calcium 7.4 L (8.5-10.1) mg/dl Total Bilirubin 0.8 (0.2-1) mg/dl AST 19 (15-37) U/L ALT 10 L (12-78) U/L Alkaline Phosphatase 109 (45-117) U/L Total Creatine Kinase 25 L (26-192) U/L Troponin I < 0.015 (0-0.045) ng/ml Total Protein 4.5 L (6.4-8.2) gm/dl Albumin 1.6 L (3.4-5.0) gm/dl Globulin 2.9 (2.5-4.0) gm/dl Albumin/Globulin Ratio 0.5 L (0.9-2) Lipase 73 (73-393) U/L Urine Color Urine Appearance (Clear) Urine pH (4.5-7.5) Ur Specific [place] (1.000-1.030) Urine Protein (Negative) Urine Glucose (UA) (Negative) Urine Ketones (Negative) Urine Blood (Negative) Urine Nitrite (Negative) Urine Bilirubin (Negative) Urine Urobilinogen (Negative) Ur Leukocyte Esterase (Negative) Urine WBC (Auto) (0-5) /hpf Urine RBC (Auto) (0-4) /hpf U Hyaline Cast (Auto) (0-5) /lpf U Epithel Cells (Auto) (0-5) /lpf Urine Bacteria (Auto) (Negative) Urine Mucus (None Prsent) COVID-19 Eval Order 02/25/21 02/25/21 Range/Units 01:01 01:05 WBC (4.8-10.8) K/uL RBC (4.2-5.4) M/uL Hgb (12.0-16.0) g/dL Hct (37-47) % MCV (80-100) fL MCH (25-34) pg MCHC (32-36) g/dL RDW Std Deviation (36.4-46.3) fL RDW Coeff of Elo (11.5-14.5) % Plt Count (130-400) K/uL MPV (7.4-10.4) fL Immature Gran % (Auto) % Neut % (Auto) % Lymph % (Auto) % [place] % (Auto) % Eos % (Auto) % Baso % (Auto) % Neut # (Auto) (1.4-6.5) K/uL Lymph # (Auto) (1.2-3.4) K/uL [place] # (Auto) (0.11-0.59) K/uL Eos # (Auto) (0-0.5) K/uL Baso # (Auto) (0-0.2) K/uL Immature Gran # (Auto) (0.00-0.02) K/uL Sodium (136-145) mmol/L Potassium (3.5-5.1) mmol/L Chloride (98-107) mmol/L Carbon Dioxide (21-32) mmol/L Anion Gap (3-11) BUN (7-18) mg/dl Creatinine (0.6-1.2) mg/dl Est Cr Clr Drug Dosing ml/min Est GFR ( Amer) ml/min Est GFR (Non-Af Amer) ml/min BUN/Creatinine Ratio (10-20) Glucose (70-99) mg/dl Lactate (0.4-2.0) mmol/L Calcium (8.5-10.1) mg/dl Total Bilirubin (0.2-1) mg/dl AST (15-37) U/L ALT (12-78) U/L Alkaline Phosphatase (45-117) U/L Total Creatine Kinase (26-192) U/L Troponin I (0-0.045) ng/ml Total Protein (6.4-8.2) gm/dl Albumin (3.4-5.0) gm/dl Globulin (2.5-4.0) gm/dl Albumin/Globulin Ratio (0.9-2) Lipase (73-393) U/L Urine Color Dark Yellow Urine Appearance Clear (Clear) Urine pH 6.0 (4.5-7.5) Ur Specific [place] 1.028 (1.000-1.030) Urine Protein Negative (Negative) Urine Glucose (UA) Negative (Negative) Urine Ketones 2+ H (Negative) Urine Blood Negative (Negative) Urine Nitrite Positive A (Negative) Urine Bilirubin 1+ H (Negative) Urine Urobilinogen Negative (Negative) Ur Leukocyte Esterase Trace H (Negative) Urine WBC (Auto) 10-30 H (0-5) /hpf Urine RBC (Auto) 0-4 (0-4) /hpf U Hyaline Cast (Auto) 5-10 H (0-5) /lpf U Epithel Cells (Auto) 20-30 H (0-5) /lpf Urine Bacteria (Auto) 4+ H (Negative) Urine Mucus Present A (None Prsent) COVID-19 Eval Order Covid19 at [facility] Administered Medications Discontinued Medications Sodium Chloride (Nss) 500 mls @ 999 mls/hr IV .Q31M STA Stop: 02/24/21 22:32 Last Infusion: 02/24/21 23:25 Dose: 0 mls/hr Documented by: [id number] Admin: 02/24/21 22:21 Dose: 999 mls/hr Documented by: [id number] Sodium Chloride (Nss 1000ml) 1,000 mls @ 999 mls/hr IV .Q1H1M ONE Stop: 02/25/21 00:07 Last Infusion: 02/25/21 01:22 Dose: 0 mls/hr Documented by: [id number] Admin: 02/24/21 23:24 Dose: 999 mls/hr Documented by: [id number] Ceftriaxone Sodium (Rocephin) 1,000 mg in 50 mls @ 100 mls/hr IV NOW STA Stop: 02/25/21 01:57 Last Admin: 02/25/21 01:50 Dose: 100 mls/hr Documented by: [id number] Ioversol (Optiray 320 100ml) 94 ml IV ONCE ONE Stop: 02/24/21 23:26 Last Admin: 02/24/21 23:26 Dose: 94 ml Documented by: [id number] Morphine Sulfate (Morphine Sulfate 4 Mg/Ml 1 Ml Carp\Vial) 4 mg IV NOW STA Stop: 02/24/21 22:03 Last Admin: 02/24/21 22:21 Dose: 4 mg Documented by: [id number] Ondansetron HCl (Ondansetron Inj 2 Mg/Ml 2 Ml Vial) 4 mg IV NOW STA Stop: 02/24/21 22:03 Last Admin: 02/24/21 22:21 Dose: 4 mg Documented by: [id number] Potassium Chloride (Potassium Chloride Pwd 20 Meq Pack) 40 meq PO ONCE ONE Stop: 02/25/21 01:03 Last Admin: 02/25/21 01:42 Dose: 40 meq Documented by: [id number] Discharge Plan Visit Data Chief Complaint: Illness Stated Complaint: ILLNESS ED Provider: Earl Jennings Discharge Problem: UTI (urinary tract infection) Forms Stand Alone Forms: [facility] Prescriptions Prescriptions: No Action multivitamin [Daily-Matthew] Tablet 1 tab PO DAILY RF: 0 pravastatin 10 mg tablet 10 mg PO DAILY RF: 0 folic acid 1 mg tablet 1 mg PO DAILY RF: 0 hydroxychloroquine 200 mg tablet 200 mg PO BID RF: 0 cholecalciferol (vitamin D3) [Vitamin D3] 50 mcg (2,000 unit) capsule 2,000 mcg PO DAILY RF: 0 magnesium oxide 400 mg magnesium capsule 400 mg PO DAILY Qty: 30 RF: 1 thiamine HCl (vitamin B1) 100 mg tablet 200 mg PO BID Qty: 0 RF: 0 meloxicam 15 mg tablet 15 mg PO DAILY RF: 0 alendronate 70 mg tablet 70 mg PO WK RF: 0 amlodipine 5 mg tablet 5 mg PO DAILY RF: 0 spironolactone 25 mg tablet 25 mg PO DAILY RF: 0 pantoprazole 20 mg tablet,delayed release (DR/EC) 20 mg PO DAILY RF: 0 ferrous sulfate 325 mg (65 mg iron) tablet 325 mg PO BID RF: 0 fluticasone propionate 50 mcg/actuation spray,suspension 2 spray INTRANASAL DAILY RF: 0 potassium chloride 10 mEq capsule, extended release 20 meq PO DAILY RF: 0 ipratropium-albuterol 0.5 mg-3 mg(2.5 mg base)/3 mL solution for nebulization 3 ml NEB QID RF: 0 Referrals Referrals: Darian Lopez [Primary Care Provider] - Discharge Problem: UTI (urinary tract infection) Qualifiers: Urinary tract infection type: site unspecified Hematuria presence: without hematuria Qualified Code(s): N39.0 - Urinary tract infection, site not specified
[2021-02-24 23:00] LABS: Basophils # (auto) 0.01 K/uL (0-0.2); Basophils % (auto) 0.3 %; Eosinophils # (auto) 0.02 K/uL (0-0.5); Eosinophils % (auto) 0.5 %; Hematocrit (blood only) 28.7 % (37-47); Hemoglobin 10.3 g/dL (12.0-16.0); Lymphocytes # (auto) 1.01 K/uL (1.2-3.4); Lymphocytes % (auto) 27.2 %; Mean Corpuscular Hemoglobin 33.4 pg (25-34); Mean Corpuscular Hgb Conc 35.9 g/dL (32-36); Mean Corpuscular Volume 93.2 fL (80-100); Mean Platelet Volume 9.1 fL (7.4-10.4); Monocytes # (auto) 0.65 K/uL (0.11-0.59); Monocytes % (auto) 17.5 %; Neutrophils # (auto) 2.03 K/uL (1.4-6.5); Neutrophils % (auto) 54.5 %; Platelet Count 172 K/uL (130-400); RDW Standard Deviation 43.7 fL (36.4-46.3); Red Blood Count 3.08 M/uL (4.2-5.4); White Blood Count 3.72 K/uL (4.8-10.8)
[2021-02-24] MEDS ORDERED: SODIUM CHLORIDE 0.9% 1000ML 1,000 ML IV ONE (23:07)
[2021-02-24 23:20] LABS: Alanine Aminotransferase 10 U/L (12-78); Albumin Level 1.6 gm/dl (3.4-5.0); Aspartate Aminotransferase 19 U/L (15-37); BUN Creatinine Ratio 12.8 (10-20); Blood Urea Nitrogen 5 mg/dl (7-18); Calcium 7.4 mg/dl (8.5-10.1); Carbon Dioxide 19 mmol/L (21-32); Chloride 96 mmol/L (98-107); Creatinine Clr Calc Pharmacy 149.4 ml/min; Est GFR (African American) 138.1 ml/min; Est GFR (Non-African American) 119.1 ml/min; Glucose 74 mg/dl (70-99); Lipase 73 U/L (73-393); Potassium 2.9 mmol/L (3.5-5.1); Sodium 129 mmol/L (136-145)
[2021-02-24 23:25] LABS: Albumin Globulin Ratio 0.5 (0.9-2); Alkaline Phosphatase 109 U/L (45-117); Bilirubin,Total 0.8 mg/dl (0.2-1); Globulin 2.9 gm/dl (2.5-4.0); Total Protein 4.5 gm/dl (6.4-8.2); Troponin I < 0.015 ng/ml (0-0.045)
[2021-02-24] MEDS ORDERED: OPTIRAY 320 100ml IV ONE (23:25)
[2021-02-25] MEDS ORDERED: POTASSIUM CHLORIDE 40 MEQ in SODIUM CHLORIDE 0.9% 1000ML 1,000 ML IV SCH (01:00)
[2021-02-25] MEDS ORDERED: POTASSIUM CHLORIDE PWD 20 MEQ PACK PO ONE (01:02)
[2021-02-25 01:14] LABS: Appearance Urine Clear (Clear); Bacteria Urine Automated 4+ (Negative); Blood Urine Negative (Negative); Color Urine Dark Yellow; Epithelial Cell Urine Auto 20-30 /lpf (0-5); Glucose Urine UA Negative (Negative); Ketones Urine 2+ (Negative); Leukocyte Esterase Urine Trace (Negative); Nitrite Urine Positive (Negative); Protein Urine Negative (Negative); Specific Gravity Urine 1.028 (1.000-1.030); Urobilinogen Urine Negative (Negative)
[2021-02-25 01:22] LABS: Bilirubin Urine 1+ (Negative)
[2021-02-25] MEDS ORDERED: cefTRIAXone SODIUM 1,000 MG/50 ML BAG IV STA (01:28)
[2021-02-25 01:29] LABS: Creatine Kinase 25 U/L (26-192)
[2021-02-25 01:33] LABS: RBC Urine Automated 0-4 /hpf (0-4)
[2021-02-25 01:34] LABS: Mucus Urine Present (None Prsent)
[2021-02-25] MEDS ORDERED: ONDANSETRON INJ 2 MG/ML 2 ML VIAL IV PRN (04:16)
--- NOTE | 2021-02-25 05:23 | History & Physical Report ---
Date of Service February 25, 2021 Assessment & Plan (1) Gastroenteritis: Plan: Gastroenteritis/hypokalemia/hyponatremia- Explain patient's presenting symptoms of nausea vomiting as 5 days. Treat symptomatically Zofran 4 mg IV every 6 hours as needed Famotidine 20 mg IV every 12 hours NSS + KCl 20 mEq at 100 mils per hour Patient did receive potassium supplementation while in the ED consisting of Klor-Con 40 mEq p.o. x1, and 40 mEq IV KCl rider (2) UTI (urinary tract infection): Plan: Follow urine culture and sensitivity Continue ceftriaxone 1 g IV daily begun in the ED (3) Frequent falls: Plan: Have asked case monitor to coordinate with social work assistant regarding appropriate as the patient presents living situation. Patient has been without medications for at least 6 months because she does not have a ride to get her medications. She is not able to take care of her ADLs and has had severe excoriations on her buttocks She should be considered at the very least to be placed in a nursing facility (4) Rheumatoid arthritis: Plan: We will resume patient's hydroxychloroquine 20 mg p.o. twice daily Start prednisone 20 mg p.o. daily (5) Hypertension: Plan: Hold amlodipine, and spironolactone due to hypotension (6) COPD (chronic obstructive pulmonary disease): Plan: DuoNebs every 2 hours as needed (7) Hyperlipidemia: Plan: Continue pravastatin (8) GERD (gastroesophageal reflux disease): Plan: Continue pantoprazole And famotidine 20 mg IV every 12 hours (9) History of alcohol abuse: Plan: Continue thiamine 10 mg p.o. twice daily and folic acid 1 mg p.o. daily (10) Osteoporosis: Plan: Takes alendronate weekly in the outpatient setting Admission and Anticipated Discharge Date Admission Date: February 25, 2021 History of Present Illness Chief Complaint: The patient presents to the emergency department with complaint of abdominal pain, nausea and vomiting x5 days, and generalized body aches and pains for at least the past 6 months without being on her rheumatoid arthritis medications Primary Care Provider: Darian Lopez The patient is a 60-year-old female with past medical history including note arthritis, osteoporosis, hypertension, iron deficiency, COPD, GERD, hyperlipidemia, history of GI bleed, alcohol use disorder, tobacco use disorder, hypomagnesemia, hypokalemia, and ambulatory dysfunction causing recurrent falls. The patient reports symptoms as noted above. She reports that she has not derived any of her medications or at least the past 6 months due to not having a ride to get to the pharmacy. She reports that she lives with a boyfriend. Allergies Allergy/AdvReac Type Severity Reaction Status Date / Time Penicillins Allergy Mild rash Verified 02/24/21 22:34 Home Medications Medication Instructions Recorded Confirmed Type cholecalciferol (vitamin D3) 50 2,000 mcg PO DAILY 06/19/19 02/24/21 History mcg (2,000 unit) capsule (Vitamin D3) folic acid 1 mg tablet 1 mg PO DAILY 06/19/19 02/24/21 History hydroxychloroquine 200 mg tablet 200 mg PO BID 06/19/19 02/24/21 History multivitamin (Daily-Matthew) 1 tab PO DAILY 06/19/19 02/24/21 History pravastatin 10 mg tablet 10 mg PO DAILY 06/19/19 02/24/21 History magnesium oxide 400 mg PO DAILY #30 cap 10/27/19 02/24/21 Rx thiamine HCl (vitamin B1) 100 mg 200 mg PO BID #0 tab 10/27/19 02/24/21 Rx tablet alendronate 70 mg tablet 70 mg PO WK 02/24/21 02/24/21 History amlodipine 5 mg tablet 5 mg PO DAILY 02/24/21 02/24/21 History ferrous sulfate 325 mg (65 mg 325 mg PO BID 02/24/21 02/24/21 History iron) tablet fluticasone propionate 50 2 spray INTRANASAL DAILY 02/24/21 02/24/21 History mcg/actuation nasal spray,suspension ipratropium 0.5 mg-albuterol 3 mg 3 ml NEB QID 02/24/21 02/24/21 History (2.5 mg base)/3 mL nebulization soln meloxicam 15 mg tablet 15 mg PO DAILY 02/24/21 02/24/21 History pantoprazole 20 mg tablet,delayed 20 mg PO DAILY 02/24/21 02/24/21 History release potassium chloride 10 mEq 20 meq PO DAILY 02/24/21 02/24/21 History capsule,extended release spironolactone 25 mg tablet 25 mg PO DAILY 02/24/21 02/24/21 History Past Med/Surg History Medical History (Updated 02/25/21 @ 05:16 by Sukhwinder Hannah MD) COPD (chronic obstructive pulmonary disease) GERD (gastroesophageal reflux disease) History of alcohol abuse Hyperlipidemia Hypertension Hypokalemia Hyponatremia Hypotension Osteoporosis Rheumatoid arthritis Surgical History S/P section Family History Other No significant family history Social History Smoking Status: Current every day smoker Cigarettes Per Day: 1-2/day; Second Hand Exposure: No; Hx Alcohol Use: Yes Alcohol type: beer Hx Substance Use: No Preferred Language: Maltese Communication Ability: Effective [employer] Driver Required: No Beliefs That Will Affect Care: None marital status: Life Partner Current Living Situation: Significant Other current occupational status: unemployed Feels Safe at Home: Yes Assistive Devices: Glasses and Walker Review of Systems Review of Systems: The patient denies chest pain, palpitations, lower extremity swelling, sore throat, fevers, chills, sweats, blood in urine or stool, dysuria, urinary frequency or urgency, memory loss, loss of consciousness, focal weakness, numbness or tingling in arms or legs, or night sweats. The review of systems is otherwise negative other than for that already noted above, and at least 10 systems have been reviewed. Physical Exam Physical Exam: The patient is awake, lethargic, looks well beyond her stated age of 60, lying in bed and in no acute distress. HEENT--PERRL, EOMI, mucous membranes and oropharynx dry. Neck--supple. No JVD. No bruits. Thyroid normal, trachea midline, no adenopathy. Heart--normal S1 and S2. No murmurs, rubs or gallops. Lungs--clear bilaterally, no respiratory distress, no accessory muscle use. Abdomen--normal bowel sounds and soft. Nontender. Nondistended Extremities--no edema Dermatologic--skin is very dry. Excoriations on buttocks bilaterally. Erythema bilateral heels Neurologic--limited exam due to pain Rheumatologic--limited exam due to pain Psychiatric--normal affect. Results & Data Results & Data ([facility]) Vital Signs (Past 12 Hours) Vital Signs Temp Pulse Pulse Resp BP BP Pulse Ox 02/25/21 03:24 78 18 95/51 L 92 02/25/21 02:00 94 H 24 92/51 L 97 02/25/21 01:30 91 H 16 84/51 L 95 02/25/21 01:00 98 H 20 84/54 L 95 02/25/21 00:30 54 L 17 70/43 L 97 02/25/21 00:08 98.2 F 92 H 20 84/54 L 96 02/25/21 00:00 99 H 25 H 100/62 02/24/21 23:30 96 H 22 93/59 L 02/24/21 23:02 103 H 23 02/24/21 22:30 102 H 22 83/57 L 96 02/24/21 22:26 98.2 F 98 H 18 83/57 L 96 02/24/21 22:00 113 H 20 Laboratory Results Laboratory Results WBC 3.72 K/uL (4.8-10.8) L 02/24/21 22:50 RBC 3.08 M/uL (4.2-5.4) L 02/24/21 22:50 Hgb 10.3 g/dL (12.0-16.0) L 02/24/21 22:50 Hct 28.7 % (37-47) L 02/24/21 22:50 MCV 93.2 fL (80-100) 02/24/21 22:50 MCH 33.4 pg (25-34) 02/24/21 22:50 MCHC 35.9 g/dL (32-36) 02/24/21 22:50 RDW Std Deviation 43.7 fL (36.4-46.3) 02/24/21 22:50 RDW Coeff of Elo 13.0 % (11.5-14.5) 02/24/21 22:50 Plt Count 172 K/uL (130-400) 02/24/21 22:50 MPV 9.1 fL (7.4-10.4) 02/24/21 22:50 Immature Gran % (Auto) 0.0 % 02/24/21 22:50 Neut % (Auto) 54.5 % 02/24/21 22:50 Lymph % (Auto) 27.2 % 02/24/21 22:50 Sac % (Auto) 17.5 % 02/24/21 22:50 Eos % (Auto) 0.5 % 02/24/21 22:50 Baso % (Auto) 0.3 % 02/24/21 22:50 Neut # (Auto) 2.03 K/uL (1.4-6.5) 02/24/21 22:50 Lymph # (Auto) 1.01 K/uL (1.2-3.4) L 02/24/21 22:50 Sac # (Auto) 0.65 K/uL (0.11-0.59) H 02/24/21 22:50 Eos # (Auto) 0.02 K/uL (0-0.5) 02/24/21 22:50 Baso # (Auto) 0.01 K/uL (0-0.2) 02/24/21 22:50 Immature Gran # (Auto) 0.00 K/uL (0.00-0.02) 02/24/21 22:50 Sodium 129 mmol/L (136-145) L 02/24/21 22:50 Potassium 2.9 mmol/L (3.5-5.1) L 02/24/21 22:50 Chloride 96 mmol/L (98-107) L 02/24/21 22:50 Carbon Dioxide 19 mmol/L (21-32) L 02/24/21 22:50 Anion Gap 13.0 (3-11) H 02/24/21 22:50 BUN 5 mg/dl (7-18) L 02/24/21 22:50 Creatinine 0.35 mg/dl (0.6-1.2) L 02/24/21 22:50 Est Cr Clr Drug Dosing 149.4 ml/min 02/24/21 22:50 Est GFR ( Amer) 138.1 ml/min 02/24/21 22:50 Est GFR (Non-Af Amer) 119.1 ml/min 02/24/21 22:50 BUN/Creatinine Ratio 12.8 (10-20) 02/24/21 22:50 Glucose 74 mg/dl (70-99) 02/24/21 22:50 Lactate 0.4 mmol/L (0.4-2.0) 02/25/21 00:10 Calcium 7.4 mg/dl (8.5-10.1) L 02/24/21 22:50 Total Bilirubin 0.8 mg/dl (0.2-1) 02/24/21 22:50 AST 19 U/L (15-37) 02/24/21 22:50 ALT 10 U/L (12-78) L 02/24/21 22:50 Alkaline Phosphatase 109 U/L (45-117) 02/24/21 22:50 Total Creatine Kinase 25 U/L (26-192) L 02/24/21 22:50 Troponin I < 0.015 ng/ml (0-0.045) 02/24/21 22:50 Total Protein 4.5 gm/dl (6.4-8.2) L 02/24/21 22:50 Albumin 1.6 gm/dl (3.4-5.0) L 02/24/21 22:50 Globulin 2.9 gm/dl (2.5-4.0) 02/24/21 22:50 Albumin/Globulin Ratio 0.5 (0.9-2) L 02/24/21 22:50 Lipase 73 U/L (73-393) 02/24/21 22:50 Urine Color Dark Yellow 02/25/21 01:01 Urine Appearance Clear (Clear) 02/25/21 01:01 Urine pH 6.0 (4.5-7.5) 02/25/21 01:01 Ur Specific [place] 1.028 (1.000-1.030) 02/25/21 01:01 Urine Protein Negative (Negative) 02/25/21 01:01 Urine Glucose (UA) Negative (Negative) 02/25/21 01:01 Urine Ketones 2+ (Negative) H 02/25/21 01:01 Urine Blood Negative (Negative) 02/25/21 01:01 Urine Nitrite Positive (Negative) A 02/25/21 01:01 Urine Bilirubin 1+ (Negative) H 02/25/21 01:01 Urine Urobilinogen Negative (Negative) 02/25/21 01:01 Ur Leukocyte Esterase Trace (Negative) H 02/25/21 01:01 Urine WBC (Auto) 10-30 /hpf (0-5) H 02/25/21 01:01 Urine RBC (Auto) 0-4 /hpf (0-4) 02/25/21 01:01 U Hyaline Cast (Auto) 5-10 /lpf (0-5) H 02/25/21 01:01 U Epithel Cells (Auto) 20-30 /lpf (0-5) H 02/25/21 01:01 Urine Bacteria (Auto) 4+ (Negative) H 02/25/21 01:01 Urine Mucus Present (None Prsent) A 02/25/21 01:01 COVID-19 Eval Order Covid19 at [facility] 02/25/21 01:05 SARS-CoV-2 (PCR) NEGATIVE (Negative) 02/25/21 01:05 Diagnostic Findings [facility] Patient: YASHIRA VIEYRA V (Female) : 62 Status: ER Date: 02/25/21 00:03 Room #: History: DIFFUSE ABD PAIN , NAUSEA , VOMITING , DIARRHEA , 94 ML OPTIRAY 320 Slices: [phone] Priors: Tech: RhiannonJosé Manuel diggs @ [phone] Exams: CT ABDOMEN & PELVIS With Contrast Contrast: IV Amt: 94 ML Accession Numbers: [id number] Referring Physician: REFERRED SELF Preliminary Findings Only See Final Report For Complete Findings CT SCAN OF THE ABDOMEN AND PELVIS WITH IV CONTRAST CLINICAL HISTORY: Abdominal pain, nausea and vomiting. TECHNIQUE: Axial and reformatted sagittal images of the abdomen pelvis obtained after IV contrast administration. FINDINGS: The visualized lung bases are unremarkable. Normal liver. Multiple calcified stones are seen in the gallbladder lumen. The gallbladder has normal wall thickness with no pericholecystic fluid. Normal extrahepatic biliary system. Normal spleen. Normal pancreas. Normal bilateral adrenal glands. Normal size of the right kidney. There is no right renal mass. There are no right renal calculi. There is no right hydronephrosis. Normal visualized right ureter. Normal size of the left kidney. There is no left renal mass. There are no left renal calculi. There is no left hydronephrosis. Normal visualized left ureter. Normal visualized stomach. There is slight diffuse thickening of the wall of the small bowel with multiple minimally dilated loops of fluid-filled small bowel. Normal colon. The appendix is visualized and appears normal. There is no demonstrated peritoneal fluid. Normal abdominal aorta. Normal inferior vena cava. Normal retroperitoneum. Normal urinary bladder. There is no pelvic mass lesion or lymphadenopathy. There is no pelvic fluid. Normal abdominal wall. Degenerative changes are seen in the lumbar vertebra. IMPRESSION: Cholelithiasis without evidence for acute cholecystitis. No findings to suggest pancreatitis. Findings in the small bowel could raise the possibility of gastroenteritis. Radiologist: Jana Bates M.D. Study ready at 00:11 and initial results transmitted at 00:35 *This report constitutes a preliminary interpretation only. Non-acute findings felt to be unrelated to the clinical presentation may not be discussed in this report. The study will be interpreted and a final report will be generated by the local Radiologist the following shift. To reach the hospital radiology department call [phone]. If a discrepancy is found between the preliminary and final interpretations of this study, please notify us via our Client Portal at [email or web address].You can also fax this report with a description of the discrepancy, or include the final report, to our daytime fax number [phone].If faxing, please indicate the severity of discrepancy using one of the following categories: [ ] 1 - Agree/Informational [ ] 2 - Unlikely to Affect Management [ ] 3 - Possible Eventual Change of Management [ ] 4 - Probable Immediate Change of Management For all other patient related information, please fax us at [phone]. [id number] Code Status & VTE Plan Code Status Full code VTE Prophylaxis Plan VTE Prophylaxis will be ordered: Yes PG Care Time/CCT Total # of Minutes Spent Total Time Spent with Patient: Total time spent is greater than 50% in coordination of care (as documented) at patient's floor/unit and/or counseling patient: Coding Level of Care Code 36359 Initial Inpt Care Lvl 3 Diagnoses Gastroenteritis K52.9 UTI (urinary tract infection) N39.0 Hematuria presence: without hematuria Urinary tract infection type: site unspecified Frequent falls R29.6 Rheumatoid arthritis M06.9 Hypertension I10 COPD (chronic obstructive pulmonary disease) J44.9 Hyperlipidemia E78.5 GERD (gastroesophageal reflux disease) K21.9 History of alcohol abuse F10.11 Osteoporosis M81.0 (1) UTI (urinary tract infection) Hematuria presence: without hematuria Urinary tract infection type: site unspecified Qualified Code(s): N39.0 - Urinary tract infection, site not specified
[2021-02-25] MEDS: ALBUT/IPRATROP 3MG/0.5MG NEB 3 ML VIAL NEB SCH ×4 (07:57→19:34)
[2021-02-25] MEDS: CARBOHYDRATES FOR HYPOGLYCEMIA PO PRN ×2 (08:00→08:15)
--- NOTE | 2021-02-25 08:18 | XRay Report ---
XR chest 1V portable INDICATION: Nausea, vomiting. TECHNIQUE: Single frontal radiograph of the chest was obtained. Comparison: Comparison is made to chest one view 10/25/2019 FINDINGS: Stable orthopedic hardware. Overlying jewelry is noted. Chronic right humeral fracture with malunion. The cardiomediastinal silhouette is normal. The lungs are clear. No evidence of pleural effusion or pneumothorax. IMPRESSION: No acute chest disease. ACT 112: Negative or not required by law. Electronically signed by: Jamaal Davenport M.D. 02/25/2021 8:17 AM
[2021-02-25] MEDS ORDERED: GLUCAGON FOR INJ 1 MG VIAL IM PRN (08:30)
[2021-02-25] MEDS ORDERED: GLUCOSE 10 TABS/TUBE PO PRN (08:30)
[2021-02-25] MEDS ORDERED: DEXTROSE 50% 50 ML SYRINGE IV PRN (08:30)
[2021-02-25] MEDS ORDERED: GLUCOSE 40% GEL 15 GM TUBE PO PRN (08:30)
[2021-02-25] MEDS: NSS + 20MEQ KCL 20 MEQ/1,000 ML BAG IV SCH ×2 (08:32→21:41)
[2021-02-25] MEDS: FAMOTIDINE 20 MG in SYRINGE 3 ML IV SCH ×2 (08:33→21:38)
[2021-02-25] MEDS: HYDROXYCHLOROQUINE SULFATE 200 MG TAB PO SCH ×2 (08:34→21:41)
[2021-02-25] MEDS: HEPARIN SOD 5,000 UNIT/0.5 ML VIAL SQ SCH ×2 (08:34→21:39)
[2021-02-25] MEDS: THIAMINE HCL 100 MG TAB PO SCH ×2 (08:34→21:41)
[2021-02-25] MEDS: predniSONE 20 MG TAB PO SCH (08:35)
[2021-02-25] MEDS: FOLIC ACID 1 MG TAB PO SCH (08:35)
[2021-02-25] MEDS: MULTIVITAMIN TAB PO SCH (08:35)
[2021-02-25] MEDS: PANTOprazole 40 MG TAB PO SCH (08:35)
[2021-02-25] MEDS: BUTT PASTE (ZINC OXIDE 16%) 171 APPLN/57 GM JAR EXT SCH ×4 (08:35→21:42)
[2021-02-25] MEDS: PRAVASTATIN SOD 10 MG TAB PO SCH (08:35)
--- NOTE | 2021-02-25 09:03 | CT Scan Report ---
CT abd pelvis IV con only CLINICAL INDICATION: MN ^N/V. TECHNIQUE: Helical axial images of the abdomen and pelvis were obtained and displayed. Automated dose lowering techniques and/or adjustment according to patient size were utilized for this exam. Nausea , vomiting COMPARISON: None available at the time of this dictation. FINDINGS: Lower chest: Bibasilar atelectasis is seen. Liver: Unremarkable. No focal lesions are seen. Gallbladder and biliary tree: Cholelithiasis is seen without evidence of cholecystitis. No intra- or extrahepatic biliary ductal dilation. Pancreas: Unremarkable, no focal lesions. Spleen: Unremarkable. Adrenals: Unremarkable. Kidneys and ureters: Unremarkable. Bladder: Unremarkable. Reproductive organs: Unremarkable. Bowel: There is wall thickening and fat stranding about the duodenum and proximal jejunum. Distal lar ge and small bowel loops are unremarkable. The appendix is normal in appearance. Lymph nodes Retroperitoneal: Unremarkable. Mesenteric: Unremarkable. Pelvic: Unremarkable. Peritoneum: Normal Vessels: Atherosclerotic calcifications are seen. Abdominal wall: Unremarkable. Bones: Degenerative changes in the visualized spine. IMPRESSION: Wall thickening and surrounding edema about the duodenum and proximal jejunum compatible with gastroe nteritis. ACT 112: Negative or not required by law. Electronically signed by: Jamaal Davenport M.D. 02/25/2021 9:02 AM
--- NOTE | 2021-02-25 16:51 | History & Physical Bridge Note ---
Date of Service February 25, 2021 History & Physical Bridge Note I have examined the patient, reviewed the History & Physical and in the interval since the performance of the History & Physical I have noted the following changes of clinical significance: no changes noted Seen in the AM. Still having diarrhea. Otherwise she is doing well. Breathing comfortably on room air. Reports pain to me "all over." Reviewing her notes, I did see her during her admission in 09/2020. At that time, her diarrhea was felt to be due to alcohol consumption. - Continue ceftriaxone for UTI - Continue IV fluids & hold HTN meds for dehydration. - Monitor for alcohol withdrawal
--- NOTE | 2021-02-25 19:51 | Electrocardiogram Report ---
Test Reason : Blood Pressure : / mmHG Vent. Rate : 091 BPM Atrial Rate : 091 BPM P-R Int : 144 ms QRS Dur : 072 ms QT Int : 394 ms P-R-T Axes : 067 -27 008 degrees QTc Int : 484 ms Normal sinus rhythm Low voltage QRS Possible Anterolateral infarct (cited on or before 24-OCT-2019) Abnormal ECG When compared with ECG of 24-OCT-2019 06:30, Questionable change in initial forces of Anterolateral leads Confirmed by Rudolph Lima ([id number]) on 02/25/2021 7:51:27 PM Referred By: REFERRED SELF Confirmed By:Rudolph Lima
[2021-02-25] MEDS: ACETAMINOPHEN 325 MG TAB PO PRN (23:03)
[2021-02-25] MEDS: cefTRIAXone SODIUM 1,000 MG in DEXTROSE 5% 50 ML IV SCH (23:04)
[2021-02-26 07:15] LABS: Hemoglobin 8.8 g/dL (12.0-16.0); Immature Granulocytes # (auto) 0.01 K/uL (0.00-0.02); Immature Granulocytes % (auto) 0.2 %; Lymphocytes # (auto) 1.32 K/uL (1.2-3.4); Lymphocytes % (auto) 25.4 %; Mean Corpuscular Hemoglobin 34.5 pg (25-34); Mean Corpuscular Hgb Conc 36.7 g/dL (32-36); Mean Corpuscular Volume 94.1 fL (80-100); Mean Platelet Volume 9.3 fL (7.4-10.4); Monocytes # (auto) 0.87 K/uL (0.11-0.59); Monocytes % (auto) 16.8 %; Neutrophils # (auto) 2.99 K/uL (1.4-6.5); Neutrophils % (auto) 57.6 %; Platelet Count 194 K/uL (130-400); RDW Standard Deviation 44.1 fL (36.4-46.3); Red Blood Count 2.55 M/uL (4.2-5.4); White Blood Count 5.19 K/uL (4.8-10.8)
[2021-02-26] MEDS: ALBUT/IPRATROP 3MG/0.5MG NEB 3 ML VIAL NEB SCH ×4 (07:28→20:04)
[2021-02-26 07:48] LABS: Albumin Level 1.5 gm/dl (3.4-5.0); BUN Creatinine Ratio 5.6 (10-20); Calcium 7.1 mg/dl (8.5-10.1); Creatinine Clr Calc Pharmacy 134.1 ml/min; Est GFR (African American) 133.2 ml/min; Magnesium 1.2 mg/dl (1.8-2.4)
[2021-02-26 07:50] LABS: Albumin Globulin Ratio 0.5 (0.9-2); Bilirubin,Total 0.5 mg/dl (0.2-1); Globulin 2.7 gm/dl (2.5-4.0); Total Protein 4.2 gm/dl (6.4-8.2)
[2021-02-26] MEDS ORDERED: POTASSIUM CHLORIDE CRTAB 20 MEQ TABCR PO SCH (09:00)
[2021-02-26] MEDS: FAMOTIDINE 20 MG in SYRINGE 3 ML IV SCH ×2 (09:47→21:00)
[2021-02-26] MEDS: HYDROXYCHLOROQUINE SULFATE 200 MG TAB PO SCH ×2 (09:49→21:04)
[2021-02-26] MEDS: MULTIVITAMIN TAB PO SCH (09:50)
[2021-02-26] MEDS: FOLIC ACID 1 MG TAB PO SCH (09:50)
[2021-02-26] MEDS: PRAVASTATIN SOD 10 MG TAB PO SCH (09:50)
[2021-02-26] MEDS: HEPARIN SOD 5,000 UNIT/0.5 ML VIAL SQ SCH ×2 (09:51→21:05)
[2021-02-26] MEDS: PANTOprazole 40 MG TAB PO SCH (09:52)
[2021-02-26] MEDS: predniSONE 20 MG TAB PO SCH (09:52)
[2021-02-26] MEDS: NSS + 20MEQ KCL 20 MEQ/1,000 ML BAG IV SCH ×2 (10:26→21:00)
[2021-02-26] MEDS: MAGNESIUM SULFATE / D5W 1 GM/100 ML BAG IV SCH ×3 (10:26→14:46)
[2021-02-26] MEDS: ADVANCED PROBIOTIC 1250 MG CAPSULE PO SCH (10:30)
[2021-02-26] MEDS: BUTT PASTE (ZINC OXIDE 16%) 171 APPLN/57 GM JAR EXT SCH ×4 (10:30→21:06)
[2021-02-26] MEDS: THIAMINE HCL 100 MG TAB PO SCH ×2 (12:10→21:02)
[2021-02-26] MEDS ORDERED: SODIUM CHLORIDE 0.9% 1000ML 250 ML IV ONE (13:02)
[2021-02-26] MEDS ORDERED: Nursing to Pharmacy Communication SCH (13:45)
[2021-02-26] MEDS: POTASSIUM CHLORIDE PWD 20 MEQ PACK PO SCH ×2 (16:41→21:02)
[2021-02-26] MEDS: COLESTIPOL HCL 1 GM TAB PO SCH ×2 (16:41→21:05)
[2021-02-26] MEDS: cefTRIAXone SODIUM 1,000 MG in DEXTROSE 5% 50 ML IV SCH (21:00)
--- NOTE | 2021-02-26 22:51 | Hospitalist Progress Note ---
Date of Service February 26, 2021 Assessment & Plan (1) Gastroenteritis: Plan: c diff neg stool cx pending add colestipol BID CT with duodenitis - could she have PUD as well? cont PPI consider GI consultation if symptoms persist (2) UTI (urinary tract infection): Plan: 2nd GNR follow urine cx Continue ceftriaxone 1 g IV daily (3) Hypotension: Plan: 2nd to volume depletion s/p small fluid bolus today for systolic BP of ~80 baseline systolic BPs 90s which is likely acceptable reading given her thin body habitus (4) Frequent falls: Plan: PT, OT living conditions may be quite unsafe as she is alone much of the time, can't get to doctor appts, etc (5) Rheumatoid arthritis: Plan: Hydroxychloroquine 200 mg p.o. twice daily resumed at admission Prednisone 20mg daily started by admitting physician as well (6) Hypertension: Plan: Hold amlodipine and spironolactone due to hypotension (7) COPD (chronic obstructive pulmonary disease): Plan: suspect some element of infectious process given her cough, GI symptoms, etc COVID neg x 2 Prednisone for RA will help this issue cont bronchodilators (8) Hyperlipidemia: Plan: Continue pravastatin (9) GERD (gastroesophageal reflux disease): Plan: Continue pantoprazole Continue famotidine 20 mg IV every 12 hours (10) History of alcohol abuse: Plan: Continue thiamine 100 mg p.o. twice daily and folic acid 1 mg p.o. daily Watch cautiously for etoh withdrawal symptoms (11) Osteoporosis: Plan: Takes alendronate weekly in the outpatient setting (12) Hyponatremia: Plan: hypovolemic hyponatremia cont IV fluids repeat BMP in am with hypotension - consider adrenal insufficiency?? (13) Hypokalemia: Plan: 2nd diarrhea replace with PO K TID has KCL in IV fluids as well BMP in am replace low mag (14) Hypomagnesemia: Plan: replace 3 grams IV mag sulfate repeat level am (15) Altered taste: Plan: COVID test at admission negative I ordered repeat to ensure no false negative testing - repeat was indeed NEGATIVE again could have sinusitis contributing to altered taste/smell (16) Anemia: Plan: chronic could be 2nd RA recheck iron studies, folate in am b12 level robust 1 year ago - defer on recheck of this (17) DVT prophylaxis: Plan: heparin 5000 BID Admission and Anticipated Discharge Date Admission Date: February 25, 2021 Subjective patient c/o ongoing diarrhea severe, liquid, no blood no abd pain despite the diarrhea she does request advancement in diet we discussed the advancement - I am concerned she may not tolerate due to emesis this am but she blames the emesis on taking too many pills at once has severe cough, wheezing, congestion lost her taste/smell ~2 weeks ago dyspnea present for 2-3 weeks the resp symptoms coincided with her GI symptoms had fever at home but did not check temp had chills as well when asked who she lives with she states her boyfriend he apparently is a catering truck driver and is on the road much of the time - thus, she is alone at home Review of Systems Review of Systems: gen - subjective fevers at home; none here; chillls at home as well; poor appetite chronically GI - emesis, nausea, diarrhea - incontinence musculo - joints hurt "all over" cv - no chest pain pulm - coughing, congestion, dyspnea on exertion Physical Exam Physical Exam: gen - chronically unwell in appearance, coughing/wheezing, somewhat slurry speech but not dysarthric mouth - MM dry neck - no JVD heart - RRR, s1 s2 lungs - diffuse wheezes b/l, no rales abd - soft NT ND BS+ ext - no edema musculo - no active synovitis of small joints of hands psych - a/o x 3 Results & Data Results & Data ([facility]) Vital Signs (Past 12 Hours) Vital Signs Temp Pulse Resp BP BP Pulse Ox 02/26/21 20:25 36.7 C 87 18 93/58 L 95 02/26/21 20:04 82 18 98 02/26/21 16:19 37.1 C 89 20 85/52 L 98 02/26/21 15:22 86 18 93 02/26/21 13:42 96/63 L 02/26/21 11:42 36.8 C 96 H 16 80/44 L 91 02/26/21 11:20 95 H 18 94 Laboratory Results Laboratory Results - last 24 hr 02/26/21 02/26/21 02/26/21 05:37 05:37 17:03 WBC 5.19 RBC 2.55 L Hgb 8.8 L Hct 24.0 L MCV 94.1 MCH 34.5 H MCHC 36.7 H RDW Std Deviation 44.1 RDW Coeff of Elo 13.0 Plt Count 194 MPV 9.3 Immature Gran % (Auto) 0.2 Neut % (Auto) 57.6 Lymph % (Auto) 25.4 Yancey % (Auto) 16.8 Eos % (Auto) 0.0 Baso % (Auto) 0.0 Neut # (Auto) 2.99 Lymph # (Auto) 1.32 Y[place]y # (Auto) 0.87 H Eos # (Auto) 0.00 Baso # (Auto) 0.00 Immature Gran # (Auto) 0.01 Sodium 132 L Potassium 3.0 L Chloride 101 Carbon Dioxide 19 L Anion Gap 11.0 BUN 2 L Creatinine 0.39 L Est Cr Clr Drug Dosing 134.1 Est GFR ( Amer) 133.2 Est GFR (Non-Af Amer) 115.0 BUN/Creatinine Ratio 5.6 L Glucose 105 H Calcium 7.1 L Magnesium 1.2 L Total Bilirubin 0.5 AST 29 ALT 17 Alkaline Phosphatase 100 Total Protein 4.2 L Albumin 1.5 L Globulin 2.7 Albumin/Globulin Ratio 0.5 L COVID-19 Eval Order Covid19 at [facility] SARS-CoV-2 (PCR) 02/26/21 17:03 WBC RBC Hgb Hct MCV MCH MCHC RDW Std Deviation RDW Coeff of Elo Plt Count MPV Immature Gran % (Auto) Neut % (Auto) Lymph % (Auto) [place] % (Auto) Eos % (Auto) Baso % (Auto) Neut # (Auto) Lymph # (Auto) [place] # (Auto) Eos # (Auto) Baso # (Auto) Immature Gran # (Auto) Sodium Potassium Chloride Carbon Dioxide Anion Gap BUN Creatinine Est Cr Clr Drug Dosing Est GFR ( Amer) Est GFR (Non-Af Amer) BUN/Creatinine Ratio Glucose Calcium Magnesium Total Bilirubin AST ALT Alkaline Phosphatase Total Protein Albumin Globulin Albumin/Globulin Ratio COVID-19 Eval Order SARS-CoV-2 (PCR) NEGATIVE PG Care Time/CCT Total # of Minutes Spent Total Time Spent with Patient: Total time spent is greater than 50% in coordination of care (as documented) at patient's floor/unit and/or counseling patient: Coding Level of Care Code 65914 Subseq Hosp Care Lvl 3 Diagnoses Gastroenteritis K52.9 UTI (urinary tract infection) N39.0 Hematuria presence: without hematuria Urinary tract infection type: site unspecified Frequent falls R29.6 Rheumatoid arthritis M06.9 Hypertension I10 COPD (chronic obstructive pulmonary disease) J44.9 Hyperlipidemia E78.5 GERD (gastroesophageal reflux disease) K21.9 History of alcohol abuse F10.11 Osteoporosis M81.0 Hyponatremia E87.1 Hypokalemia E87.6 Hypomagnesemia E83.42 Altered taste R43.2 DVT prophylaxis Z29.9 Anemia D64.9 Hypotension I95.9 (1) UTI (urinary tract infection) Hematuria presence: without hematuria Urinary tract infection type: site unspecified Qualified Code(s): N39.0 - Urinary tract infection, site not specified
[2021-02-27] MEDS: NSS + 20MEQ KCL 20 MEQ/1,000 ML BAG IV SCH (06:25)
[2021-02-27] MEDS: ALBUT/IPRATROP 3MG/0.5MG NEB 3 ML VIAL NEB SCH ×5 (07:44→20:03)
[2021-02-27 08:45] LABS: BUN Creatinine Ratio 5.6 (10-20); Blood Urea Nitrogen 1 mg/dl (7-18); Calcium 7.6 mg/dl (8.5-10.1); Carbon Dioxide 21 mmol/L (21-32); Chloride 102 mmol/L (98-107); Creatinine Clr Calc Pharmacy 209.2 ml/min; Est GFR (African American) > 150.0 ml/min; Est GFR (Non-African American) 133.1 ml/min; Ferritin 892.1 ng/ml (8-388); Glucose 81 mg/dl (70-99); Iron 42 mcg/dl (35-150); Magnesium 1.8 mg/dl (1.8-2.4); Potassium 3.5 mmol/L (3.5-5.1); Sodium 131 mmol/L (136-145); Transferrin 61 mg/dl (200-360); Transferrin Percent Saturation 49 % (15-50)
[2021-02-27] MEDS: POTASSIUM CHLORIDE PWD 20 MEQ PACK PO SCH ×3 (10:39→21:09)
[2021-02-27] MEDS: MULTIVITAMIN TAB PO SCH (10:40)
[2021-02-27] MEDS: FAMOTIDINE 20 MG in SYRINGE 3 ML IV SCH ×2 (10:42→21:08)
[2021-02-27] MEDS: FOLIC ACID 1 MG TAB PO SCH (10:44)
[2021-02-27] MEDS: HEPARIN SOD 5,000 UNIT/0.5 ML VIAL SQ SCH ×2 (10:45→21:11)
[2021-02-27] MEDS: ADVANCED PROBIOTIC 1250 MG CAPSULE PO SCH (10:46)
[2021-02-27] MEDS: HYDROXYCHLOROQUINE SULFATE 200 MG TAB PO SCH ×2 (10:46→21:10)
[2021-02-27] MEDS: CHOLESTYRAMINE LIGHT 4 GM PKT PO SCH ×2 (10:47→21:12)
[2021-02-27] MEDS: PANTOprazole 40 MG TAB PO SCH (10:47)
[2021-02-27] MEDS: predniSONE 20 MG TAB PO SCH (10:48)
[2021-02-27] MEDS: PRAVASTATIN SOD 10 MG TAB PO SCH (10:48)
[2021-02-27] MEDS: BUTT PASTE (ZINC OXIDE 16%) 171 APPLN/57 GM JAR EXT SCH ×4 (10:48→21:13)
[2021-02-27] MEDS: THIAMINE HCL 100 MG TAB PO SCH ×2 (10:49→21:11)
[2021-02-27] MEDS: NITROFURANTOIN MONOHYDRATE 100 MG CAP PO SCH (21:09)
[2021-02-27] MEDS ORDERED: COSYNTROPIN 1 MCG in SYRINGE 0 ML IV ONE (21:30)
--- NOTE | 2021-02-27 22:31 | Hospitalist Progress Note ---
Date of Service February 27, 2021 Assessment & Plan (1) Gastroenteritis: Plan: c diff neg stool cx pending but thus far neg cont bile acid sequestrant CT with duodenitis - could she have PUD as well? cont PPI consider GI consultation if symptoms persist but thus far is improving duodenitis could be from etoh use (2) UTI (urinary tract infection): Plan: 2nd klebsiella stop ceftriaxone change to macrobid treat total of 7 days IV/PO (3) Hypotension: Plan: 2nd to volume depletion can't exclude small body habitus contributing to BPs cortisol level is only 7 could have adrenal insufficiency will perform cosyntropin stim test in am tomorrow NPO after MN for such (4) Frequent falls: Plan: PT, OT living conditions may be quite unsafe as she is alone much of the time, can't get to doctor appts, etc PT advising rehab (5) Rheumatoid arthritis: Plan: Hydroxychloroquine 200 mg p.o. twice daily resumed at admission Prednisone 20mg daily started by admitting physician at admission, but holding such to perform cosyntropin stim test (6) Hypertension: Plan: cont to hold amlodipine and spironolactone due to hypotension (7) COPD (chronic obstructive pulmonary disease): Plan: suspect some element of infectious process given her cough, GI symptoms, etc COVID neg x 2 cont bronchodilators (8) Hyperlipidemia: Plan: Continue pravastatin (9) GERD (gastroesophageal reflux disease): Plan: Continue pantoprazole Continue famotidine 20 mg IV every 12 hours can likely stop latter if doing ok tomorrow (10) History of alcohol abuse: Plan: Continue thiamine 100 mg p.o. twice daily and folic acid 1 mg p.o. daily Watch cautiously for etoh withdrawal symptoms (11) Osteoporosis: Plan: Takes alendronate weekly in the outpatient setting (12) Hyponatremia: Plan: hypovolemic hyponatremia at presentation has been hydrated and looks euvolemic today despite such her Na is still low random Urine Na level is quite high awaiting urine osm element of SIADH? could she have adrenal insuffiency? stim test tomorrow stop IV fluids repeat BMP in am (13) Hypokalemia: Plan: 2nd diarrhea resolved replace low mag (14) Hypomagnesemia: Plan: replace again with IV mag repeat level am (15) Altered taste: Plan: COVID test at admission negative repeat test negative 2nd to sinus disease? other? (16) Anemia: Plan: chronic could be 2nd RA rechecked iron studies - no Fe def folate wnl today b12 level robust 1 year ago - defer on recheck of this no overt GI Bleeding follow (17) DVT prophylaxis: Plan: heparin 5000 BID Plan: dispo - will need rehab Admission and Anticipated Discharge Date Admission Date: February 25, 2021 Subjective diarrhea improved cough/congestion improved no dyspnea at rest no abd pain tolerating diet w/o N/V denies dizziness or lightheadedness states "I want to go home soon" tele overnight wnl worked with PT this am - not safe for home, needs rehab Review of Systems Review of Systems: gen - no fever/chills CV - no chest pain musculo - joints feel better, less stiffness - incontinent per staff Physical Exam Physical Exam: gen - chronically unwell in appearance, but looks better than yesterday, sitting in chair mouth - MM more moist today neck - no JVD heart - RRR, s1 s2 lungs - wheezes improved; rales improved; airation slightly better abd - soft NT ND BS+ ext - no edema, pulses 1-2+ b/l musculo - minimal synovitis of PIPs b/l hands (thumbs, etc) psych - a/o x 3 Results & Data Results & Data ([facility]) Vital Signs (Past 12 Hours) Vital Signs Temp Pulse Resp BP BP Pulse Ox 02/27/21 20:04 81 16 93 02/27/21 19:04 37.0 C 93 H 20 90/58 L 95 02/27/21 15:44 36.8 C 89 20 97/63 L 95 02/27/21 15:13 89 18 96 02/27/21 11:12 36.7 C 65 18 106/70 95 02/27/21 11:01 65 18 95 Laboratory Results Laboratory Results - last 24 hr 02/27/21 02/27/21 02/27/21 07:24 07:24 07:24 Sodium 131 L Potassium 3.5 D Chloride 102 Carbon Dioxide 21 Anion Gap 8.0 BUN 1 L Creatinine 0.25 L Est Cr Clr Drug Dosing 209.2 Est GFR ( Amer) > 150.0 Est GFR (Non-Af Amer) 133.1 BUN/Creatinine Ratio 5.6 L Glucose 81 Calcium 7.6 L Magnesium 1.8 Iron 42 Transferrin 61 L Transferrin % Sat 49 Ferritin 892.1 H Folate 11.80 Random Cortisol 7.14 Ur Random Sodium 02/27/21 Unknown Sodium Potassium Chloride Carbon Dioxide Anion Gap BUN Creatinine Est Cr Clr Drug Dosing Est GFR ( Amer) Est GFR (Non-Af Amer) BUN/Creatinine Ratio Glucose Calcium Magnesium Iron Transferrin Transferrin % Sat Ferritin Folate Random Cortisol Ur Random Sodium 103 PG Care Time/CCT Total # of Minutes Spent Total Time Spent with Patient: Total time spent is greater than 50% in coordination of care (as documented) at patient's floor/unit and/or counseling patient: Coding Level of Care Code 17051 Subseq Hosp Care Lvl 3 Diagnoses Gastroenteritis K52.9 UTI (urinary tract infection) N39.0 Hematuria presence: without hematuria Urinary tract infection type: site unspecified Hypotension I95.9 Frequent falls R29.6 Rheumatoid arthritis M06.9 Hypertension I10 COPD (chronic obstructive pulmonary disease) J44.9 Hyperlipidemia E78.5 GERD (gastroesophageal reflux disease) K21.9 History of alcohol abuse F10.11 Osteoporosis M81.0 Hyponatremia E87.1 Hypokalemia E87.6 Hypomagnesemia E83.42 Altered taste R43.2 Anemia D64.9 DVT prophylaxis Z29.9 (1) UTI (urinary tract infection) Hematuria presence: without hematuria Urinary tract infection type: site unspecified Qualified Code(s): N39.0 - Urinary tract infection, site not specified
[2021-02-28] MEDS: ACETAMINOPHEN 325 MG TAB PO PRN (03:35)
[2021-02-28] MEDS: ALBUT/IPRATROP 3MG/0.5MG NEB 3 ML VIAL NEB SCH ×4 (07:12→20:33)
[2021-02-28] MEDS: ADVANCED PROBIOTIC 1250 MG CAPSULE PO SCH (08:25)
[2021-02-28] MEDS: PRAVASTATIN SOD 10 MG TAB PO SCH (08:26)
[2021-02-28] MEDS: HYDROXYCHLOROQUINE SULFATE 200 MG TAB PO SCH ×2 (08:26→20:10)
[2021-02-28] MEDS: PANTOprazole 40 MG TAB PO SCH (08:26)
[2021-02-28] MEDS: THIAMINE HCL 100 MG TAB PO SCH ×2 (08:27→20:13)
[2021-02-28] MEDS: FOLIC ACID 1 MG TAB PO SCH (08:27)
[2021-02-28] MEDS: NITROFURANTOIN MONOHYDRATE 100 MG CAP PO SCH ×2 (08:27→20:12)
[2021-02-28] MEDS: MULTIVITAMIN TAB PO SCH (08:28)
[2021-02-28] MEDS: HEPARIN SOD 5,000 UNIT/0.5 ML VIAL SQ SCH ×2 (08:29→20:12)
[2021-02-28] MEDS: POTASSIUM CHLORIDE PWD 20 MEQ PACK PO SCH ×3 (08:29→20:12)
[2021-02-28] MEDS: FAMOTIDINE 20 MG in SYRINGE 3 ML IV SCH (08:49)
[2021-02-28] MEDS: MAGNESIUM SULFATE / D5W 1 GM/100 ML BAG IV SCH ×2 (09:30→13:40)
[2021-02-28] MEDS: BUTT PASTE (ZINC OXIDE 16%) 171 APPLN/57 GM JAR EXT SCH ×4 (10:00→20:11)
[2021-02-28] MEDS: CHOLESTYRAMINE LIGHT 4 GM PKT PO SCH ×2 (10:30→20:11)
[2021-02-28] MEDS: NSS + 20MEQ KCL 20 MEQ/1,000 ML BAG IV SCH (15:49)
--- NOTE | 2021-02-28 21:35 | Hospitalist Progress Note ---
Date of Service February 28, 2021 Assessment & Plan (1) Gastroenteritis: Plan: c diff neg stool cx pending but continues to be neg cont bile acid sequestrant CT with duodenitis - could she have PUD as well? cont PPI consider GI consultation if symptoms persist but thus far is improving duodenitis could be from etoh use (2) UTI (urinary tract infection): Plan: 2nd klebsiella cont macrobid treat total of 7 days IV/PO today is day #4 of course (3) Hypotension: Plan: 2nd to volume depletion can't exclude small body habitus contributing to BPs cortisol level was only 7 recently; a repeat was 4 today could have adrenal insufficiency will perform cosyntropin stim test in am tomorrow NPO after MN for such if she is adrenally insufficient send ACTH level, TSH/fT4, etc. (r/o central causes) (4) Frequent falls: Plan: PT, OT living conditions may be quite unsafe as she is alone much of the time, can't get to doctor appts, etc PT advising rehab pt agreeable to such (5) Rheumatoid arthritis: Plan: Hydroxychloroquine 200 mg p.o. twice daily resumed at admission Prednisone 20mg daily started by admitting physician at admission (only received 1-2 doses - hopefully won't affect stim test). holding such to perform cosyntropin stim test (6) Hypertension: Plan: cont to hold amlodipine and spironolactone due to hypotension (7) COPD (chronic obstructive pulmonary disease): Plan: WITH EXACERBATION improved suspect some element of infectious process given her cough, GI symptoms, etc COVID neg x 2 cont bronchodilators (8) Hyperlipidemia: Plan: Continue pravastatin (9) GERD (gastroesophageal reflux disease): Plan: Continue pantoprazole stop pepcid (10) History of alcohol abuse: Plan: Continue thiamine 100 mg p.o. twice daily and folic acid 1 mg p.o. daily Watch cautiously for etoh withdrawal symptoms none seen thus far (11) Osteoporosis: Plan: Takes alendronate weekly in the outpatient setting (12) Hyponatremia: Plan: hypovolemic hyponatremia at presentation after hydration did not correct however urine Na very high osm pending stim test for adrenal insuff pending bmp am (13) Hypokalemia: Plan: resolved (14) Hypomagnesemia: Plan: replace again with IV mag repeat level am (15) Altered taste: Plan: COVID test at admission negative repeat test negative 2nd to sinus disease? other? (16) Anemia: Plan: chronic could be 2nd RA rechecked iron studies - no Fe def folate wnl b12 level robust 1 year ago - defer on recheck of this no overt GI Bleeding follow (17) DVT prophylaxis: Plan: heparin 5000 BID Plan: needs rehab attempted to call program director/air personality in chart today - no answer Admission and Anticipated Discharge Date Admission Date: February 25, 2021 Subjective pt "doing a lot better!" energy, appetite, weakness, and diarrhea ALL improved. coughing less. no dyspnea today. tele wnl overnight. AGREEABLE to going to rehab. unfortunately cosyntropin test had some issues - will plan on tomorrow for this; NPO order this am canceled. Review of Systems Review of Systems: gen - no fever or chills; energy better CV - no chest pain GI - no abd pain Pulm - no wheezing musculo - joints MUCH better; handgrips improved Physical Exam Physical Exam: gen - chronically unwell in appearance, but continues to look better each day; cough is better mouth - MMM today neck - no JVD heart - RRR, s1 s2 lungs - wheezes improved; rales improved; airation improved abd - soft NT ND BS+ ext - no edema, pulses 1-2+ b/l musculo - minimal synovitis of PIPs b/l hands (thumbs, etc) psych - a/o x 3 Results & Data Results & Data ([facility]) Vital Signs (Past 12 Hours) Vital Signs Temp Pulse Pulse Resp BP Pulse Ox 02/28/21 20:35 78 16 97 02/28/21 19:52 36.9 C 81 18 93/56 L 96 02/28/21 15:45 36.9 C 85 20 106/66 96 02/28/21 15:28 92 H 18 98 02/28/21 15:08 98 H 02/28/21 11:57 36.9 C 92 H 18 108/74 99 02/28/21 10:49 78 16 93 Laboratory Results Laboratory Results - last 24 hr 02/28/21 02/28/21 06:35 06:35 Magnesium 1.7 L Random Cortisol Pending PG Care Time/CCT Total # of Minutes Spent Total Time Spent with Patient: Total time spent is greater than 50% in coordination of care (as documented) at patient's floor/unit and/or counseling patient: Coding Level of Care Code 11941 Subseq Hosp Care Lvl 3 Diagnoses Gastroenteritis K52.9 UTI (urinary tract infection) N39.0 Hematuria presence: without hematuria Urinary tract infection type: site unspecified Hypotension I95.9 Frequent falls R29.6 Rheumatoid arthritis M06.9 Hypertension I10 COPD (chronic obstructive pulmonary disease) J44.9 Hyperlipidemia E78.5 GERD (gastroesophageal reflux disease) K21.9 History of alcohol abuse F10.11 Osteoporosis M81.0 Hyponatremia E87.1 Hypokalemia E87.6 Hypomagnesemia E83.42 Altered taste R43.2 Anemia D64.9 DVT prophylaxis Z29.9 (1) UTI (urinary tract infection) Hematuria presence: without hematuria Urinary tract infection type: site unspecified Qualified Code(s): N39.0 - Urinary tract infection, site not specified
[2021-03-01] MEDS: ALBUT/IPRATROP 3MG/0.5MG NEB 3 ML VIAL NEB SCH ×4 (07:01→19:38)
[2021-03-01] MEDS ORDERED: COSYNTROPIN 1 MCG in SYRINGE 0 ML IV ONE (08:00)
[2021-03-01 08:52] LABS: BUN Creatinine Ratio 5.2 (10-20); Calcium 8.3 mg/dl (8.5-10.1); Creatinine Clr Calc Pharmacy 223.5 ml/min; Est GFR (African American) 146.9 ml/min; Est GFR (Non-African American) 126.7 ml/min; Magnesium 1.7 mg/dl (1.8-2.4); Potassium 3.6 mmol/L (3.5-5.1)
[2021-03-01] MEDS: PRAVASTATIN SOD 10 MG TAB PO SCH (09:33)
[2021-03-01] MEDS: MULTIVITAMIN TAB PO SCH (09:33)
[2021-03-01] MEDS: HYDROXYCHLOROQUINE SULFATE 200 MG TAB PO SCH ×2 (09:33→21:13)
[2021-03-01] MEDS: THIAMINE HCL 100 MG TAB PO SCH ×2 (09:33→21:13)
[2021-03-01] MEDS: POTASSIUM CHLORIDE PWD 20 MEQ PACK PO SCH ×3 (09:37→21:11)
[2021-03-01] MEDS: ADVANCED PROBIOTIC 1250 MG CAPSULE PO SCH (09:37)
[2021-03-01] MEDS: PANTOprazole 40 MG TAB PO SCH (09:37)
[2021-03-01] MEDS: FOLIC ACID 1 MG TAB PO SCH (09:37)
[2021-03-01] MEDS: NITROFURANTOIN MONOHYDRATE 100 MG CAP PO SCH ×2 (09:37→21:13)
[2021-03-01] MEDS: HEPARIN SOD 5,000 UNIT/0.5 ML VIAL SQ SCH ×2 (09:38→21:15)
[2021-03-01] MEDS: BUTT PASTE (ZINC OXIDE 16%) 171 APPLN/57 GM JAR EXT SCH ×4 (09:38→21:15)
[2021-03-01] MEDS ORDERED: predniSONE 20 MG TAB PO STA (10:33)
[2021-03-01] MEDS: SODIUM CHLORIDE 1 GM TABLET PO SCH (10:51)
[2021-03-01] MEDS: CHOLESTYRAMINE LIGHT 4 GM PKT PO SCH ×2 (10:51→21:54)
[2021-03-01] MEDS: MAGNESIUM SULFATE / D5W 1 GM/100 ML BAG IV SCH ×2 (10:51→12:54)
--- NOTE | 2021-03-01 19:52 | Hospitalist Progress Note ---
Date of Service March 01, 2021 Assessment & Plan (1) Adrenal insufficiency: Plan: AM cortisol level has been low formal cosyntropin stim test today --- did not stim to >18 she had another stim test in 2017 - also failed that one ACTH level at that time was wnl given diarrhea, low sodium, low BP, etc -- start prednisone 20mg daily refer to endo post-d/c check Ft4, ACTH, and prolactin; r/o central adrenal insuffiency (2) Gastroenteritis: Plan: resolved c diff neg stool cx neg CT with duodenitis - could she have PUD as well? cont PPI for duodenitis (3) UTI (urinary tract infection): Plan: 2nd klebsiella cont macrobid treat total of 7 days IV/PO today is day #5 of course (4) Hypotension: Plan: 2nd to volume depletion can't exclude small body habitus contributing to BPs cortisol level was only 7 recently; a repeat was 4 suspect adrenal insufficiency see #1 above (5) Frequent falls: Plan: PT, OT living conditions may be quite unsafe as she is alone much of the time, can't g et to doctor appts, etc PT advising rehab pt agreeable to such (6) Rheumatoid arthritis: Plan: Hydroxychloroquine 200 mg p.o. twice daily resumed at admission Prednisone for presumed adrenal sufficiency RA flare improved with above (7) Hypertension: Plan: cont to hold amlodipine and spironolactone due to hypotension (8) COPD (chronic obstructive pulmonary disease): Plan: WITH EXACERBATION improved suspect some element of infectious process given her cough, GI symptoms, etc COVID neg x 2 cont bronchodilators (9) Hyperlipidemia: Plan: Continue pravastatin (10) GERD (gastroesophageal reflux disease): Plan: Continue pantoprazole (11) History of alcohol abuse: Plan: Continue thiamine 200 mg p.o. twice daily and folic acid 1 mg p.o. daily Watch cautiously for etoh withdrawal symptoms - none seen thus far (12) Osteoporosis: Plan: Takes alendronate weekly in the outpatient setting (13) Hyponatremia: Plan: records indicate a past h/o low sodium at one point she took salt tabs in the past recommending 1gm daily repeat BMP am adrenal insufficiency - salt wasting?? (14) Hypokalemia: Plan: resolved (15) Hypomagnesemia: Plan: replace and recheck (16) Altered taste: Plan: COVID test at admission negative repeat test negative 2nd to sinus disease? other? (17) Anemia: Plan: chronic could be 2nd RA rechecked iron studies - no Fe def folate wnl b12 level robust 1 year ago - defer on recheck of this no overt GI Bleeding follow (18) DVT prophylaxis: Plan: heparin 5000 BID Plan: dispo - SNF vs acute rehab Admission and Anticipated Discharge Date Admission Date: February 25, 2021 Subjective when I entered the room today the patient said "Im doing really good!" all issues - cough, diarrhea, weakness, fatigue, etc - are improved only 1 episode of diarrhea today swollen joints b/l hands improved she brought up a new problem today she reports having had a fall 2 weeks ago at home presented to an urgent care in [place] ([facility] was told she had a "broken shoulder" she was supposed to see that urgent care in f/u on 02/28 she states she had been using a sling at home but since coming to [facility] she has not had it c/o mild right shoulder pain only old records reviewed - in 2017 she failed a cosyntropin stim test and was placed on steroid therapy for adrenal insufficiency she was supposed to have endo f/u but it appears she never did Review of Systems Review of Systems: gen - no fever CV - no chest pain pulm - cough, but no sputum GI - no pain Physical Exam Physical Exam: gen - NAD, best she has looked all week mouth - MMM today neck - no JVD heart - RRR, s1 s2 lungs - wheezes much improved; rales resolved abd - soft NT ND BS+ ext - no edema, pulses 1-2+ b/l musculo - scant synovitis of PIPs b/l hands (thumbs, etc) psych - a/o x 3 neuro - speech somewhat dysarthric but largely easy to understand Results & Data Results & Data ([facility]) Vital Signs (Past 12 Hours) Vital Signs Temp Pulse Pulse Resp BP Pulse Ox 03/01/21 15:22 36.8 C 87 18 103/68 98 03/01/21 15:16 82 18 97 03/01/21 11:51 37.0 C 76 18 101/66 97 03/01/21 11:14 77 18 96 03/01/21 08:00 69 Laboratory Results Laboratory Results - last 24 hr 02/28/21 03/01/21 03/01/21 06:35 08:03 08:03 Sodium 132 L Potassium 3.6 Chloride 99 Carbon Dioxide 28 Anion Gap 4.0 BUN 2 L Creatinine 0.29 L Est Cr Clr Drug Dosing 223.5 Est GFR ( Amer) 146.9 Est GFR (Non-Af Amer) 126.7 BUN/Creatinine Ratio 5.2 L Glucose 82 Calcium 8.3 L Magnesium 1.7 L Random Cortisol 4.89 Cortisol Response Urine Osmolality 03/01/21 Unknown Sodium Potassium Chloride Carbon Dioxide Anion Gap BUN Creatinine Est Cr Clr Drug Dosing Est GFR ( Amer) Est GFR (Non-Af Amer) BUN/Creatinine Ratio Glucose Calcium Magnesium Random Cortisol Cortisol Response Urine Osmolality 396 L PG Care Time/CCT Total # of Minutes Spent Total Time Spent with Patient: Total time spent is greater than 50% in coordination of care (as documented) at patient's floor/unit and/or counseling patient: Coding Level of Care Code 91097 Subseq Hosp Care Lvl 3 Diagnoses Gastroenteritis K52.9 UTI (urinary tract infection) N39.0 Hematuria presence: without hematuria Urinary tract infection type: site unspecified Hypotension I95.9 Frequent falls R29.6 Rheumatoid arthritis M06.9 Hypertension I10 COPD (chronic obstructive pulmonary disease) J44.9 Hyperlipidemia E78.5 GERD (gastroesophageal reflux disease) K21.9 History of alcohol abuse F10.11 Osteoporosis M81.0 Hyponatremia E87.1 Hypokalemia E87.6 Hypomagnesemia E83.42 Altered taste R43.2 Anemia D64.9 DVT prophylaxis Z29.9 Adrenal insufficiency E27.40 (1) UTI (urinary tract infection) Hematuria presence: without hematuria Urinary tract infection type: site unspecified Qualified Code(s): N39.0 - Urinary tract infection, site not specified
--- NOTE | 2021-03-01 19:52 | XRay Report ---
XR shoulder RT min 2V routine, XR shoulder LT min 2V routine HISTORY: 60 years-old Female ?humerus fracture 2 weeks ago; fall. Acute bilateral shoulder pain with history of recent fall COMPARISON: Chest radiograph 02/24/2021 TECHNIQUE: 2 views of the bilateral shoulders FINDINGS: RIGHT: Healed chronic fracture deformity of the proximal right humerus. Demineralized appearance of the bone s. Healed chronic right-sided rib fractures. ORIF changes of the right clavicle. There is elevation o f the distal right clavicle which is unchanged from 02/24/2021. The distal right clavicle liver is fra ctured, new from 10/25/2019 moderate glenohumeral osteoarthritis. Question acute versus subacute fractu re involving the coracoid process, also new from 10/25/2019. LEFT: Healed chronic left-sided rib fractures. ORIF changes of the left clavicle. Intramedullary nail with proximal cannulated screw of the left humerus. Moderate glenohumeral and AC joint osteoarthritis. No acute fracture or dislocation. IMPRESSION: 1. Displaced fracture of the distal right clavicle with superior clavicular elevation and AC joint wi dening is new from 10/25/2019 however appears unchanged from the 02/24/2021 exam suggestive of acute or subacute fracture. 2. Acute or subacute appearing fracture of the right coracoid process. 3. Chronic fracture deformity of the proximal right humerus. 4. No acute fracture or dislocation of the left shoulder. ACT 112: Negative or not required by law. The above report was generated using voice recognition software. It may contain grammatical, syntax o r spelling errors. Electronically signed by: Dane Marie M.D. 03/01/2021 7:51 PM
[2021-03-01] MEDS: ACETAMINOPHEN 325 MG TAB PO PRN (22:18)
[2021-03-02] MEDS ORDERED: LOPERAMIDE HCL 2 MG CAP PO STA (02:40)
[2021-03-02 06:27] LABS: Hematocrit (blood only) 26.1 % (37-47); Hemoglobin 9.3 g/dL (12.0-16.0); Mean Corpuscular Hemoglobin 34.2 pg (25-34); Mean Corpuscular Hgb Conc 35.6 g/dL (32-36); Mean Platelet Volume 8.6 fL (7.4-10.4); Platelet Count 281 K/uL (130-400); RDW Coefficient of Variation 13.6 % (11.5-14.5); RDW Standard Deviation 47.2 fL (36.4-46.3); Red Blood Count 2.72 M/uL (4.2-5.4); White Blood Count 3.82 K/uL (4.8-10.8)
[2021-03-02 06:54] LABS: BUN Creatinine Ratio 8.6 (10-20); Calcium 8.2 mg/dl (8.5-10.1); Est GFR (African American) 132.1 ml/min; Potassium 3.8 mmol/L (3.5-5.1)
[2021-03-02 06:58] LABS: T4 Free Thyroxine 0.82 ng/dl (0.8-1.6)
[2021-03-02] MEDS: ALBUT/IPRATROP 3MG/0.5MG NEB 3 ML VIAL NEB SCH ×4 (07:13→19:46)
[2021-03-02] MEDS: SODIUM CHLORIDE 1 GM TABLET PO SCH (09:16)
[2021-03-02] MEDS: HEPARIN SOD 5,000 UNIT/0.5 ML VIAL SQ SCH ×2 (09:16→22:23)
[2021-03-02] MEDS: THIAMINE HCL 100 MG TAB PO SCH ×2 (09:16→22:24)
[2021-03-02] MEDS: HYDROXYCHLOROQUINE SULFATE 200 MG TAB PO SCH ×2 (09:16→22:23)
[2021-03-02] MEDS: PANTOprazole 40 MG TAB PO SCH (09:17)
[2021-03-02] MEDS: ADVANCED PROBIOTIC 1250 MG CAPSULE PO SCH (09:17)
[2021-03-02] MEDS: MULTIVITAMIN TAB PO SCH (09:17)
[2021-03-02] MEDS: POTASSIUM CHLORIDE PWD 20 MEQ PACK PO SCH ×2 (09:17→22:24)
[2021-03-02] MEDS: PRAVASTATIN SOD 10 MG TAB PO SCH (09:17)
[2021-03-02] MEDS: predniSONE 20 MG TAB PO SCH (09:17)
[2021-03-02] MEDS: FOLIC ACID 1 MG TAB PO SCH (09:18)
[2021-03-02] MEDS: BUTT PASTE (ZINC OXIDE 16%) 171 APPLN/57 GM JAR EXT SCH ×4 (09:18→22:24)
[2021-03-02] MEDS: NITROFURANTOIN MONOHYDRATE 100 MG CAP PO SCH ×2 (09:18→22:24)
[2021-03-02] MEDS: CHOLESTYRAMINE LIGHT 4 GM PKT PO SCH (11:43)
--- NOTE | 2021-03-02 15:39 | Orthopedic Consultation ---
Date of Consultation March 02, 2021 Assessment & Plan (1) Closed coracoid process fracture: 60-year-old white female with history of frequent falls and noted subacute coracoid fracture on the right. X-rays reviewed. She is 2 weeks out from her last fall onto the right shoulder. She states that she was given a sling to wear but she has forgotten to wear it or forgot to bring it with her to the hospital. Malunion of the right proximal humerus. Question whether the distal tip of the clavicle is old. She has no pain on palpation of this area for me at this time. Coracoid fracture is likely new and we will order a sling for the right upper extremity. I am not sure patient will be diligent in wearing the sling when she is out of the hospital. I will discuss the case with Dr. Mayo who will see the patient as well and review x-rays for any further input. History of Present Illness Reason for Consultation: Question of right distal clavicle fracture with new or subacute coracoid fracture Attending Physician: Chele Sun History of Present Illness Patient is a 60-year-old female was admitted for gastroenteritis. During the course of her stay, she had mentioned to the admitting team that she was having some shoulder pain. X-rays were taken of the left and right shoulders. Right shoulder was showing a question of a subacute versus acute coracoid fracture with question of distal tip fracture of the clavicle. Patient states that she has ambulation dysfunction and has had many falls over the course of her history. She has had many surgeries including a intramedullary fady of the left humerus, left clavicle ORIF and right clavicle ORIF. She is also had a fracture of her right proximal humerus which has healed without surgery but she cannot remember how she broke it. Currently she states that while sitting in her chair she does not have much in the way of pain. She states when she moves the shoulder on the right side she does have some increased discomfort. She has no other complaints at this time. We have been asked to see her for her right shoulder. Allergies Allergy/AdvReac Type Severity Reaction Status Date / Time Penicillins Allergy Mild rash Verified 02/24/21 22:34 Home Medications Medication Instructions Recorded Confirmed Type cholecalciferol (vitamin D3) 50 2,000 mcg PO DAILY 06/19/19 02/24/21 History mcg (2,000 unit) capsule (Vitamin D3) folic acid 1 mg tablet 1 mg PO DAILY 06/19/19 02/24/21 History hydroxychloroquine 200 mg tablet 200 mg PO BID 06/19/19 02/24/21 History multivitamin (Daily-Matthew) 1 tab PO DAILY 06/19/19 02/24/21 History pravastatin 10 mg tablet 10 mg PO DAILY 06/19/19 02/24/21 History magnesium oxide 400 mg PO DAILY #30 cap 10/27/19 02/24/21 Rx thiamine HCl (vitamin B1) 100 mg 200 mg PO BID #0 tab 10/27/19 02/24/21 Rx tablet alendronate 70 mg tablet 70 mg PO WK 02/24/21 02/24/21 History amlodipine 5 mg tablet 5 mg PO DAILY 02/24/21 02/24/21 History ferrous sulfate 325 mg (65 mg 325 mg PO BID 02/24/21 02/24/21 History iron) tablet fluticasone propionate 50 2 spray INTRANASAL DAILY 02/24/21 02/24/21 History mcg/actuation nasal spray,suspension ipratropium 0.5 mg-albuterol 3 mg 3 ml NEB QID 02/24/21 02/24/21 History (2.5 mg base)/3 mL nebulization soln meloxicam 15 mg tablet 15 mg PO DAILY 02/24/21 02/24/21 History pantoprazole 20 mg tablet,delayed 20 mg PO DAILY 02/24/21 02/24/21 History release potassium chloride 10 mEq 20 meq PO DAILY 02/24/21 02/24/21 History capsule,extended release spironolactone 25 mg tablet 25 mg PO DAILY 02/24/21 02/24/21 History Patient History Medical History COPD (chronic obstructive pulmonary disease) GERD (gastroesophageal reflux disease) History of alcohol abuse Hyperlipidemia Hypertension Hypokalemia Hyponatremia Hypotension Osteoporosis Rheumatoid arthritis Surgical History S/P section Family History Other No significant family history Social History Smoking Status: Current every day smoker Cigarettes Per Day: 1-2/day; Second Hand Exposure: Yes; Do You Dip or Chew Tobacco: No; Tobacco Cessation Education Requested by Patient: No Hx Alcohol Use: Yes Alcohol type: beer Hx Substance Use: No Preferred Language: Latvian Communication Ability: Effective Family Reunification Specialist Required: No Beliefs That Will Affect Care: None marital status: Life Partner Current Living Situation: Significant Other current occupational status: unemployed Other Information That Helps Us Care for You: No Feels Safe at Home: Yes Safety Concerns: Feels Safe At This Time Assistive Devices: Glasses Physical Exam Physical Exam: On examination, the patient is sitting in her chair at the bedside. She is awake and alert. She is oriented to person and place. She is in no acute distress. Pleasant and cooperative. On examination of the right shoulder, the patient is fairly cachectic. She has minimal to no swelling over the anterior and superior portion of the right shoulder. No erythema noted. He has a well-healed scar from previous ORIF of her clavicle. I can palpate the right clavicle all the way to the distal tip without discomfort. I do not appreciate any crepitus. She has no pain on palpation of the proximal humerus anterior to posterior. Palpation over the coracoid process does elicit some discomfort. She is able to actively go through internal and external rotation of the proximal humerus without much in the way of discomfort. Forward flexion is limited and she can get to approximate about 90 and degrees of forward flexion actively. Gentle passive range of motion can increase this to about 120 degrees. During her process of active and passive range of motion she complains of mild pain in the coracoid region. She denies pain over the distal clavicle. She has abduction to 90 degrees without much discomfort. She denies any pain radiating down into her hand. She has good range of motion of her right elbow, wrist and fingers. She denies any decrease sensation in her fingers at this time. Cap refills less than 2 seconds and radial pulse is strong. There is no gross motor or sensory loss at this time. Results & Data ([facility]) Vital Signs (Past 12 Hours) Vital Signs Temp Pulse Pulse Resp BP Pulse Ox 03/02/21 15:16 91 H 18 94 03/02/21 11:56 18 03/02/21 11:11 36.9 C 83 20 111/60 97 03/02/21 08:00 70 03/02/21 07:54 36.7 C 77 20 104/64 93 03/02/21 07:13 86 18 95 Diagnostic Findings Patient: YASHIRA VIEYRA Date: 02/25/21MR#: [id number]: [id number]Acct ID:[id number]: [address]Birth Date: [address] [address] Zip: [place] [id number]: 60Location: 2WSex: FRoom/Bed: [address] Phy: Chele Sun MDDiagnosis: UTI, RA FLARE, FTTPri Phy: Darian Lopez D.O.Service Date: 03/01/21Fam Phy:Interpreting Phy: Dane LevycherAdmit Phy: Sukhwinder Hannah M.D. Ordering Phy: Chele Sun MD cc: ~ XR shoulder RT min 2V routine, XR shoulder LT min 2V routine HISTORY: 60 years-old Female ?humerus fracture 2 weeks ago; fall. Acute bilateral shoulder pain with history of recent fall COMPARISON: Chest radiograph 02/24/2021 TECHNIQUE: 2 views of the bilateral shoulders FINDINGS: RIGHT: Healed chronic fracture deformity of the proximal right humerus. Demineralized appearance of the bones. Healed chronic right-sided rib fractures. ORIF changes of the right clavicle. There is elevation of the distal right clavicle which is unchanged from 02/24/2021. The distal right clavicle liver is fractured, new from 10/25/2019 moderate glenohumeral osteoarthritis. Question acute versus subacute fracture involving the coracoid process, also new from 10/25/2019. LEFT: Healed chronic left-sided rib fractures. ORIF changes of the left clavicle. Intramedullary nail with proximal cannulated screw of the left humerus. Moderate glenohumeral and AC joint osteoarthritis. No acute fracture or dislocation. IMPRESSION: 1. Displaced fracture of the distal right clavicle with superior clavicular elevation and AC joint widening is new from 10/25/2019 however appears unchanged from the 02/24/2021 exam suggestive of acute or subacute fracture. 2. Acute or subacute appearing fracture of the right coracoid process. 3. Chronic fracture deformity of the proximal right humerus. 4. No acute fracture or dislocation of the left shoulder.
--- NOTE | 2021-03-02 19:41 | Hospitalist Progress Note ---
Date of Service March 02, 2021 Assessment & Plan (1) Adrenal insufficiency: Plan: formal cosyntropin stim test --- did not stim to >18 she had another stim test in 2017 - also failed that one ACTH level at that time was wnl given diarrhea, low sodium, low BP, etc -- start prednisone 20mg daily refer to endo post-d/c free T4 is low-normal ACTH level sent and pending prolactin normal she feels much better on steroid replacement BPs also improved (2) Gastroenteritis: Plan: CT with duodenitis - could she have PUD as well? cont PPI for duodenitis diarrhea is back despite use of questran could she have pancreatic insufficiency given heavy drinking for many years (along w/ weight loss)? will trial her on creon TID w/ meals hold questran (3) UTI (urinary tract infection): Plan: 2nd klebsiella cont macrobid treat total of 7 days IV/PO today is day #6 of course (4) Hypotension: Plan: 2nd to volume depletion can't exclude small body habitus contributing to BPs adrenal insufficiency also contributed resolved (5) Frequent falls: Plan: PT, OT living conditions may be quite unsafe as she is alone much of the time, can't get to doctor appts, etc PT advising rehab pt agreeable to such referrals are out to multiple SNFs (6) Rheumatoid arthritis: Plan: Hydroxychloroquine 200 mg p.o. twice daily resumed at admission Prednisone for presumed adrenal sufficiency will control her RA as well RA flare improved with above (7) Hypertension: Plan: cont to hold amlodipine and spironolactone due to hypotension likely permanently stop both (8) COPD (chronic obstructive pulmonary disease): Plan: WITH EXACERBATION improved suspect some element of infectious process given her cough, GI symptoms, etc COVID neg x 2 cont bronchodilators (9) Hyperlipidemia: Plan: Continue pravastatin (10) GERD (gastroesophageal reflux disease): Plan: Continue pantoprazole (11) History of alcohol abuse: Plan: Continue thiamine 200 mg p.o. twice daily and folic acid 1 mg p.o. daily Watch cautiously for etoh withdrawal symptoms - none seen thus far (12) Osteoporosis: Plan: Takes alendronate weekly in the outpatient setting check a 25-OH vit D level while here (13) Hyponatremia: Plan: records indicate a past h/o low sodium at one point she took salt tabs in the past cont NaCl 1gm daily repeat BMP am adrenal insufficiency - salt wasting?? (14) Hypokalemia: Plan: resolved (15) Hypomagnesemia: Plan: replaced yesterday and today's level wnl (16) Altered taste: Plan: COVID test at admission negative repeat test negative 2nd to sinus disease? other? (17) Anemia: Plan: chronic could be 2nd RA rechecked iron studies - no Fe def folate wnl b12 level robust 1 year ago - defer on recheck of this no overt GI Bleeding follow (18) DVT prophylaxis: Plan: heparin 5000 BID (19) Closed coracoid process fracture: Plan: RIGHT 2nd trauma ortho consult appreciated conservative Rx sling immobilization check 25-OH vit D level Plan: dispo - snf for rehab Admission and Anticipated Discharge Date Admission Date: February 25, 2021 Subjective patient states diarrhea has returned had 3 stools - 1 in middle of the night, and 2 today this is despite BID questran despite diarrhea - eating remains robust, no abd pain, no nausea/emesis cough is stable; no dyspnea again states "I'm feeling good" shoulder films of right shoulder did indeed show coracoid process Fx, clavicle Fx -- sling ordered ortho to see Review of Systems Review of Systems: gen - no fevers, no chills, reports 60 pounds of weight loss this year?? CV - no chest pain pulm - no sputum GI - no blood in stool Physical Exam Physical Exam: gen - NAD, looks good mouth - MMM today; no thrush neck - no JVD heart - RRR, s1 s2, no murmur lungs - CTA b/l abd - soft NT ND BS+ ext - no edema, pulses 1-2+ b/l psych - a/o x 3 neuro - speech somewhat dysarthric Results & Data Results & Data ([facility]) Vital Signs (Past 12 Hours) Vital Signs Temp Pulse Pulse Resp BP Pulse Ox 03/02/21 16:00 84 03/02/21 15:16 91 H 18 94 03/02/21 11:56 18 03/02/21 11:11 36.9 C 83 20 111/60 97 03/02/21 08:00 70 03/02/21 07:54 36.7 C 77 20 104/64 93 Laboratory Results Laboratory Results - last 24 hr 03/02/21 03/02/21 03/02/21 06:07 06:07 06:07 WBC RBC Hgb Hct MCV MCH MCHC RDW Std Deviation RDW Coeff of Elo Plt Count MPV Sodium 130 L Potassium 3.8 Chloride 99 Carbon Dioxide 25 Anion Gap 7.0 BUN 3 L Creatinine 0.40 L Est Cr Clr Drug Dosing 160.0 Est GFR ( Amer) 132.1 Est GFR (Non-Af Amer) 114.0 BUN/Creatinine Ratio 8.6 L Glucose 94 Calcium 8.2 L Magnesium 2.0 Free T4 0.82 Prolactin 19.38 ACTH Pending 03/02/21 06:07 WBC 3.82 L RBC 2.72 L Hgb 9.3 L Hct 26.1 L MCV 96.0 MCH 34.2 H MCHC 35.6 RDW Std Deviation 47.2 H RDW Coeff of Elo 13.6 Plt Count 281 MPV 8.6 Sodium Potassium Chloride Carbon Dioxide Anion Gap BUN Creatinine Est Cr Clr Drug Dosing Est GFR ( Amer) Est GFR (Non-Af Amer) BUN/Creatinine Ratio Glucose Calcium Magnesium Free T4 Prolactin ACTH PG Care Time/CCT Total # of Minutes Spent Total Time Spent with Patient: Total time spent is greater than 50% in coordination of care (as documented) at patient's floor/unit and/or counseling patient: Coding Level of Care Code 12700 Subseq Hosp Care Lvl 3 Diagnoses Adrenal insufficiency E27.40 Gastroenteritis K52.9 UTI (urinary tract infection) N39.0 Hematuria presence: without hematuria Urinary tract infection type: site unspecified Hypotension I95.9 Frequent falls R29.6 Rheumatoid arthritis M06.9 Hypertension I10 COPD (chronic obstructive pulmonary disease) J44.9 Hyperlipidemia E78.5 GERD (gastroesophageal reflux disease) K21.9 History of alcohol abuse F10.11 Osteoporosis M81.0 Hyponatremia E87.1 Hypokalemia E87.6 Hypomagnesemia E83.42 Altered taste R43.2 Anemia D64.9 DVT prophylaxis Z29.9 Closed coracoid process fracture S42.133A (1) UTI (urinary tract infection) Hematuria presence: without hematuria Urinary tract infection type: site unspecified Qualified Code(s): N39.0 - Urinary tract infection, site not specified
[2021-03-03] MEDS: ACETAMINOPHEN 325 MG TAB PO PRN (01:09)
[2021-03-03] MEDS: ALBUT/IPRATROP 3MG/0.5MG NEB 3 ML VIAL NEB SCH ×4 (07:23→21:49)
[2021-03-03 07:24] LABS: BUN Creatinine Ratio 13.3 (10-20); Calcium 8.1 mg/dl (8.5-10.1); Creatinine Clr Calc Pharmacy 168.9 ml/min; Est GFR (African American) 134.4 ml/min
[2021-03-03] MEDS: PANCREAZE (LIPASE 10,500U) CAP PO SCH ×3 (09:49→17:01)
[2021-03-03] MEDS: PANTOprazole 40 MG TAB PO SCH (09:50)
[2021-03-03] MEDS: THIAMINE HCL 100 MG TAB PO SCH ×2 (09:50→21:26)
[2021-03-03] MEDS: POTASSIUM CHLORIDE PWD 20 MEQ PACK PO SCH ×2 (09:50→21:27)
[2021-03-03] MEDS: SODIUM CHLORIDE 1 GM TABLET PO SCH (09:51)
[2021-03-03] MEDS: MULTIVITAMIN TAB PO SCH (09:51)
[2021-03-03] MEDS: PRAVASTATIN SOD 10 MG TAB PO SCH (09:51)
[2021-03-03] MEDS: HYDROXYCHLOROQUINE SULFATE 200 MG TAB PO SCH ×2 (09:51→21:26)
[2021-03-03] MEDS: predniSONE 20 MG TAB PO SCH (09:52)
[2021-03-03] MEDS: HEPARIN SOD 5,000 UNIT/0.5 ML VIAL SQ SCH ×2 (09:52→21:28)
[2021-03-03] MEDS: FOLIC ACID 1 MG TAB PO SCH (09:53)
[2021-03-03] MEDS: BUTT PASTE (ZINC OXIDE 16%) 171 APPLN/57 GM JAR EXT SCH ×5 (09:58→21:28)
[2021-03-03] MEDS: NITROFURANTOIN MONOHYDRATE 100 MG CAP PO SCH ×2 (09:59→21:26)
[2021-03-03] MEDS: ADVANCED PROBIOTIC 1250 MG CAPSULE PO SCH (12:50)
[2021-03-03] MEDS ORDERED: LOPERAMIDE HCL 2 MG CAP PO PRN (16:25)
--- NOTE | 2021-03-03 22:36 | Hospitalist Progress Note ---
Date of Service March 03, 2021 Assessment & Plan (1) Adrenal insufficiency: Plan: formal cosyntropin stim test --- did not stim to >18 she had another stim test in 2017 - also failed that one ACTH level at that time was wnl given diarrhea, low sodium, low BP, etc -- start prednisone 20mg daily refer to endo post-d/c free T4 is low-normal ACTH level sent and pending prolactin normal (2) Gastroenteritis: Plan: CT with duodenitis at time of admission - placed on PPI also with jejunal inflammation - etiology?? diarrhea had responded to questran, then diarrhea returned could she have pancreatic insufficiency given heavy drinking for many years (along w/ weight loss)? will trial her on creon TID w/ meals hold questran since c diff is neg will also allow her imodium prn (3) UTI (urinary tract infection): Plan: 2nd klebsiella cont macrobid treat total of 7 days IV/PO today is day #7 of course (4) Hypotension: Plan: 2nd to volume depletion adrenal insufficiency also contributed resolved (5) Frequent falls: Plan: PT, OT living conditions unsafe as she is alone much of the time, can't get to doctor appts, has falls, etc PT advising rehab pt agreeable to such referrals are out to multiple SNFs (6) Rheumatoid arthritis: Plan: Hydroxychloroquine 200 mg p.o. twice daily resumed at admission Prednisone for presumed adrenal sufficiency will control her RA as well RA flare improved with above (7) Hypertension: Plan: stopped BP meds; BPs controlled without those meds (8) COPD (chronic obstructive pulmonary disease): Plan: WITH EXACERBATION improved/resolved COVID neg x 2 cont bronchodilators (9) Hyperlipidemia: Plan: Continue pravastatin (10) GERD (gastroesophageal reflux disease): Plan: Continue pantoprazole (11) History of alcohol abuse: Plan: Continue thiamine 200 mg p.o. twice daily and folic acid 1 mg p.o. daily Watch cautiously for etoh withdrawal symptoms - none seen (12) Osteoporosis: Plan: Takes alendronate weekly in the outpatient setting check a 25-OH vit D level while here - level pending (13) Hyponatremia: Plan: records indicate a past h/o low sodium at one point she took salt tabs in the past cont NaCl 1gm daily adrenal insufficiency - salt wasting?? (14) Hypokalemia: Plan: resolved (15) Hypomagnesemia: Plan: replaced yesterday and today's level wnl (16) Altered taste: Plan: COVID test at admission negative repeat test negative 2nd to sinus disease? other? has not c/o this issue since early week (17) Anemia: Plan: chronic could be 2nd RA rechecked iron studies - no Fe def folate wnl b12 level robust 1 year ago - defer on recheck of this no overt GI Bleeding follow (18) DVT prophylaxis: Plan: heparin 5000 BID (19) Closed coracoid process fracture: Plan: RIGHT 2nd trauma ortho consult appreciated conservative Rx sling immobilization check 25-OH vit D level - pending Plan: dispo - snf for rehab Admission and Anticipated Discharge Date Admission Date: February 25, 2021 Subjective patient has worsening diarrhea again had a BM in the middle of the night, then 2 during the day loose, foul-smelling no abd pain eating well despite the diarrhea breathing is improved/stable cough unchanged no fevers/chills tele stable overnight Review of Systems Review of Systems: gen - appetite good, fatigue improved CV - no chest pain - no urinary symptoms GI - no trouble swallowing ENT - chronic slow, slurry speech - spoke with family, present "years" Physical Exam Physical Exam: gen - NAD mouth - MMM; no thrush neck - no JVD heart - RRR, s1 s2, no murmur lungs - CTA b/l abd - soft NT ND BS+ ext - no edema, pulses 1-2+ b/l psych - a/o x 3 neuro - speech somewhat dysarthric/slow Results & Data Results & Data ([facility]) Vital Signs (Past 12 Hours) Vital Signs Temp Pulse Resp BP Pulse Ox 03/03/21 21:49 88 18 94 03/03/21 17:12 36.5 C 91 H 16 111/72 91 03/03/21 15:49 89 18 95 03/03/21 11:38 37.0 C 90 16 101/65 92 Laboratory Results Laboratory Results - last 24 hr 03/03/21 03/03/21 06:32 06:32 Sodium 132 L Potassium 4.0 Chloride 100 Carbon Dioxide 27 Anion Gap 5.0 BUN 5 L Creatinine 0.38 L Est Cr Clr Drug Dosing 168.9 Est GFR ( Amer) 134.4 Est GFR (Non-Af Amer) 116.0 BUN/Creatinine Ratio 13.3 Glucose 82 Calcium 8.1 L 25-OH Vitamin D Total Pending PG Care Time/CCT Total # of Minutes Spent Total Time Spent with Patient: Total time spent is greater than 50% in coordination of care (as documented) at patient's floor/unit and/or counseling patient: Coding Level of Care Code 23534 Subseq Hosp Care Lvl 2 Diagnoses Adrenal insufficiency E27.40 Gastroenteritis K52.9 UTI (urinary tract infection) N39.0 Hematuria presence: without hematuria Urinary tract infection type: site unspecified Hypotension I95.9 Frequent falls R29.6 Rheumatoid arthritis M06.9 Hypertension I10 COPD (chronic obstructive pulmonary disease) J44.9 Hyperlipidemia E78.5 GERD (gastroesophageal reflux disease) K21.9 History of alcohol abuse F10.11 Osteoporosis M81.0 Hyponatremia E87.1 Hypokalemia E87.6 Hypomagnesemia E83.42 Altered taste R43.2 Anemia D64.9 DVT prophylaxis Z29.9 Closed coracoid process fracture S42.133A (1) UTI (urinary tract infection) Hematuria presence: without hematuria Urinary tract infection type: site unspecified Qualified Code(s): N39.0 - Urinary tract infection, site not specified
[2021-03-04] MEDS: ALBUT/IPRATROP 3MG/0.5MG NEB 3 ML VIAL NEB SCH ×4 (07:24→19:43)
[2021-03-04] MEDS: ADVANCED PROBIOTIC 1250 MG CAPSULE PO SCH (07:41)
[2021-03-04] MEDS: SODIUM CHLORIDE 1 GM TABLET PO SCH (07:41)
[2021-03-04] MEDS: HEPARIN SOD 5,000 UNIT/0.5 ML VIAL SQ SCH ×2 (07:41→20:54)
[2021-03-04] MEDS: PANTOprazole 40 MG TAB PO SCH (07:42)
[2021-03-04] MEDS: PRAVASTATIN SOD 10 MG TAB PO SCH (07:42)
[2021-03-04] MEDS: THIAMINE HCL 100 MG TAB PO SCH ×2 (07:43→20:53)
[2021-03-04] MEDS: MULTIVITAMIN TAB PO SCH (07:43)
[2021-03-04] MEDS: NITROFURANTOIN MONOHYDRATE 100 MG CAP PO SCH (07:45)
[2021-03-04] MEDS: HYDROXYCHLOROQUINE SULFATE 200 MG TAB PO SCH ×2 (07:47→20:54)
[2021-03-04] MEDS: FOLIC ACID 1 MG TAB PO SCH (07:47)
[2021-03-04] MEDS: PANCREAZE (LIPASE 10,500U) CAP PO SCH ×3 (07:47→17:20)
[2021-03-04] MEDS: predniSONE 20 MG TAB PO SCH (07:50)
[2021-03-04] MEDS: POTASSIUM CHLORIDE PWD 20 MEQ PACK PO SCH ×2 (07:50→20:53)
[2021-03-04] MEDS: BUTT PASTE (ZINC OXIDE 16%) 171 APPLN/57 GM JAR EXT SCH ×4 (07:52→20:56)
--- NOTE | 2021-03-04 13:06 | Hospitalist Progress Note ---
Date of Service March 04, 2021 Assessment & Plan (1) Adrenal insufficiency: Plan: formal cosyntropin stim test --- did not stim to >18 she had another stim test in 2017 - also failed that one ACTH level at that time was wnl given diarrhea, low sodium, low BP, etc -- started prednisone 20mg daily refer to endo post-d/c free T4 is low-normal - does she deserve replacement? (FT4 is 0.82; <0.80 is deficient) ACTH level sent and pending prolactin normal (2) Gastroenteritis: Plan: CT with duodenitis at time of admission - placed on PPI also with jejunal inflammation - etiology?? diarrhea had responded to questran, then diarrhea returned could she have pancreatic insufficiency given heavy drinking for many years (along w/ weight loss)? placed on trial of creon TID w/ meals holding questran since c diff is neg will also allow her imodium prn if diarrhea recurs then GI consultation (3) UTI (urinary tract infection): Plan: 2nd klebsiella completed 7 day course of IV/PO abx off abx at this time (4) Hypotension: Plan: 2nd to volume depletion, adrenal insufficiency, etc resolved BPs now quite normal (had been 80s/90s, now 110-120) (5) Frequent falls: Plan: PT, OT living conditions unsafe as she is alone much of the time, can't get to doctor appts, has falls, etc PT advising rehab patient agreeable to such referrals are out to multiple SNFs (6) Rheumatoid arthritis: Plan: Hydroxychloroquine 200 mg p.o. twice daily resumed at admission Prednisone for presumed adrenal sufficiency will control her RA as well RA flare improved with above needs to re-establish care with rheumatology (7) Hypertension: Plan: stopped BP meds; BPs controlled without those meds (8) COPD (chronic obstructive pulmonary disease): Plan: exacerbation resolved COVID neg x 2 cont bronchodilators (9) Hyperlipidemia: Plan: Continue pravastatin (10) GERD (gastroesophageal reflux disease): Plan: Continue pantoprazole (11) History of alcohol abuse: Plan: Continue thiamine 200 mg p.o. twice daily and folic acid 1 mg p.o. daily no etoh withdrawal during this stay (12) Osteoporosis: Plan: Takes alendronate weekly in the outpatient setting check a 25-OH vit D level while here - level pending (13) Hyponatremia: Plan: records indicate a past h/o low sodium at one point she took salt tabs in the past NaCl 1gm daily resumed check bmp in am adrenal insufficiency - salt wasting?? (14) Hypokalemia: Plan: resolved (15) Hypomagnesemia: Plan: replaced and resolved repeat mag level to ensure still normal (16) Altered taste: Plan: COVID test at admission negative repeat test negative 2nd to sinus disease? other? has not c/o this issue since early week (17) Anemia: Plan: chronic could be 2nd RA rechecked iron studies - no Fe def folate wnl b12 level robust 1 year ago - defer on recheck of this no overt GI Bleeding follow (18) DVT prophylaxis: Plan: heparin 5000 BID (19) Closed coracoid process fracture: Plan: RIGHT 2nd trauma ortho consult appreciated conservative Rx sling immobilization check 25-OH vit D level - pending Plan: dispo - snf for rehab family updated by phone yesterday ok to Tx to med/surg Admission and Anticipated Discharge Date Admission Date: February 25, 2021 Subjective pt reports no diarrhea today no abd pain robust appetite continues coughing at times but no dyspnea ambulating sitting in chair overall feels good she states he has "lost 60 pounds" in the last few months but that is false -- weight in 10/2019 was 63kg today - 56kg she asks about rehab Review of Systems Review of Systems: gen - no fevers, chills, or appetite loss CV - no cp or orthopnea pulm - no sputum, no wheeze abd - no pain; diarrhea improved; no N/V Physical Exam Physical Exam: gen - NAD, speech same as all previous visits mouth - MMM; no thrush neck - no JVD heart - RRR, s1 s2, no murmur lungs - CTA b/l with occasional end-exp wheeze; coughs at times abd - soft NT ND BS+ ext - no edema, pulses 1-2+ b/l psych - a/o x 3 neuro - speech somewhat dysarthric/slow -- baseline musculo - right arm in sling Results & Data Results & Data ([facility]) Vital Signs (Past 12 Hours) Vital Signs Temp Pulse Resp BP Pulse Ox 03/04/21 11:49 87 18 94 03/04/21 07:41 36.8 C 93 H 16 112/70 90 03/04/21 07:25 83 18 94 PG Care Time/CCT Total # of Minutes Spent Total Time Spent with Patient: Total time spent is greater than 50% in coordination of care (as documented) at patient's floor/unit and/or counseling patient: Coding Level of Care Code 48834 Subseq Hosp Care Lvl 2 Diagnoses Adrenal insufficiency E27.40 Gastroenteritis K52.9 UTI (urinary tract infection) N39.0 Hematuria presence: without hematuria Urinary tract infection type: site unspecified Hypotension I95.9 Frequent falls R29.6 Rheumatoid arthritis M06.9 Hypertension I10 COPD (chronic obstructive pulmonary disease) J44.9 Hyperlipidemia E78.5 GERD (gastroesophageal reflux disease) K21.9 History of alcohol abuse F10.11 Osteoporosis M81.0 Hyponatremia E87.1 Hypokalemia E87.6 Hypomagnesemia E83.42 Altered taste R43.2 Anemia D64.9 DVT prophylaxis Z29.9 Closed coracoid process fracture S42.133A (1) UTI (urinary tract infection) Hematuria presence: without hematuria Urinary tract infection type: site unspecified Qualified Code(s): N39.0 - Urinary tract infection, site not specified
--- NOTE | 2021-03-04 17:58 | Orthopedic Progress Note ---
Date of Service March 04, 2021 Assessment & Plan (1) Closed coracoid process fracture: Plan: Nonoperative care.Recommend continued use of sling right upper extremity. Ice prn. May remove the sling to sleep and to shower if comfort permits. Follow-up in clinic with Dr. Mayo in approximately 4 weeks for reassessment and radiographs of the right shoulder. Call for appointment. (2) Fracture of clavicle, right, closed: Plan: Nonoperative management. May use sling as per above to treat distal clavicle fracture. Ice as needed Admission and Anticipated Discharge Date Admission Date: February 25, 2021 Subjective Patient denies any active discomfort related to the right shoulder or coracoid.She has been using the extremity throughout the day with and without her sling. She understands that she has been instructed to use her sling to improve her chances of healing her active acute coracoid fracture and distal clavicle fracture. Review of Systems Review of Systems: No changes related to review of systems at this time. Physical Exam Physical Exam: Patient is sitting upright in her bedside transfer cart. No acute distress. She is playing a game on her phone. Sling is not currently on the patient. Gentle palpation of the right shoulder elicits no acute distress however with palpation over the coracoid continues to have discomfort. Range of motion both active and passive are unchanged at this time. Distal neurovascular status is intact. Results & Data ([facility]) Vital Signs (Past 12 Hours) Vital Signs Temp Pulse Resp BP Pulse Ox 03/04/21 15:53 36.5 C 96 H 16 101/63 93 03/04/21 15:13 97 H 18 93 03/04/21 11:49 87 18 94 03/04/21 07:41 36.8 C 93 H 16 112/70 90 03/04/21 07:25 83 18 94
[2021-03-04] MEDS: ACETAMINOPHEN 325 MG TAB PO PRN (23:35)
[2021-03-05] MEDS: ALBUT/IPRATROP 3MG/0.5MG NEB 3 ML VIAL NEB SCH ×4 (07:27→18:59)
[2021-03-05 07:34] LABS: Hematocrit (blood only) 26.4 % (37-47); Hemoglobin 9.2 g/dL (12.0-16.0); Mean Corpuscular Hemoglobin 34.1 pg (25-34); Mean Corpuscular Hgb Conc 34.8 g/dL (32-36); Mean Corpuscular Volume 97.8 fL (80-100); Mean Platelet Volume 8.5 fL (7.4-10.4); Platelet Count 342 K/uL (130-400); RDW Coefficient of Variation 13.7 % (11.5-14.5); RDW Standard Deviation 49.1 fL (36.4-46.3); White Blood Count 4.89 K/uL (4.8-10.8)
[2021-03-05 07:52] LABS: BUN Creatinine Ratio 20.3 (10-20); Calcium 8.4 mg/dl (8.5-10.1); Creatinine Clr Calc Pharmacy 134.1 ml/min; Est GFR (African American) 133.2 ml/min; Magnesium 1.5 mg/dl (1.8-2.4); Potassium 3.9 mmol/L (3.5-5.1)
[2021-03-05] MEDS: predniSONE 20 MG TAB PO SCH (08:19)
[2021-03-05] MEDS: SODIUM CHLORIDE 1 GM TABLET PO SCH (08:19)
[2021-03-05] MEDS: PRAVASTATIN SOD 10 MG TAB PO SCH (08:19)
[2021-03-05] MEDS: THIAMINE HCL 100 MG TAB PO SCH ×2 (08:19→20:25)
[2021-03-05] MEDS: FOLIC ACID 1 MG TAB PO SCH (08:19)
[2021-03-05] MEDS: PANTOprazole 40 MG TAB PO SCH (08:20)
[2021-03-05] MEDS: PANCREAZE (LIPASE 10,500U) CAP PO SCH ×3 (08:20→17:30)
[2021-03-05] MEDS: HYDROXYCHLOROQUINE SULFATE 200 MG TAB PO SCH ×2 (08:20→20:25)
[2021-03-05] MEDS: MULTIVITAMIN TAB PO SCH (08:20)
[2021-03-05] MEDS: HEPARIN SOD 5,000 UNIT/0.5 ML VIAL SQ SCH ×2 (08:20→20:25)
[2021-03-05] MEDS: ADVANCED PROBIOTIC 1250 MG CAPSULE PO SCH (08:20)
[2021-03-05] MEDS: POTASSIUM CHLORIDE PWD 20 MEQ PACK PO SCH ×2 (08:20→20:25)
[2021-03-05] MEDS: BUTT PASTE (ZINC OXIDE 16%) 171 APPLN/57 GM JAR EXT SCH ×4 (08:21→20:25)
[2021-03-05] MEDS: ACETAMINOPHEN 325 MG TAB PO PRN (15:24)
--- NOTE | 2021-03-05 16:12 | Hospitalist Progress Note ---
Date of Service March 05, 2021 Assessment & Plan (1) Adrenal insufficiency: Plan: aJson is a 60-year-old female with a history of anemia, adrenal insufficiency, frequent falls, GERD, alcohol abuse who presented with concern for gastroenteritis/hypokalemia/hyponatremia he was found to have a closed coracoid process fracture during admission. Adrenal insufficiency - formal cosyntropin stim test --- did not stim to >18 -past stim test in 2017 - also failed that one - ACTH level at that time was wnl, repeat pending - given diarrhea, low sodium, low BP, etc -- started prednisone 20mg daily - Continue prednisone 20 mg daily - refer to endo post-d/c - free T4 is low-normal - May consider low-dose replacement as outpatient (FT4 is 0.82; <0.80 is deficient) - prolactin normal (2) Gastroenteritis: Plan: -CT with duodenitis at time of admission - placed on PPI -also with jejunal inflammation, unclear etiology? Viral -diarrhea had responded to questran, then diarrhea returned -? pancreatic insufficiency given heavy drinking for many years (along w/ weight loss)? -placed on trial of creon TID w/ meals, diarrhea improving -holding questran -since c diff is neg will also allow her imodium prn i-f diarrhea recurs then GI consultation (3) UTI (urinary tract infection): Plan: -2nd klebsiella -completed 7 day course of IV/PO abx -off abx at this time (4) Hypotension: Plan: 2nd to volume depletion, adrenal insufficiency, etc resolved ? Volume depletion with poor nutrition can be immune to hypoalbuminemia. CMP pending, consider boost, bolus as needed (5) Frequent falls: Plan: -PT, OT -living conditions unsafe as she is alone much of the time, can't get to doctor appts, has falls, etc -PT advising rehab -patient agreeable to such -referrals are out to multiple SNFs Patient noted to have a closed coracoid fracture of the right upper extremity. Ortho consulted, and sling. May remove sling to sleep or to shower if comfort permits. We will follow-up as outpatient in approximately 4 weeks, continue nonoperative management. Ice as needed. (6) Rheumatoid arthritis: Plan: Hydroxychloroquine 200 mg p.o. twice daily resumed at admission Prednisone for presumed adrenal sufficiency will control her RA as well RA flare improved with above needs to re-establish care with rheumatology (7) Hypertension: Plan: stopped BP meds; BPs controlled without those meds (8) COPD (chronic obstructive pulmonary disease): Plan: exacerbation resolved COVID neg x 2 cont bronchodilators (9) Hyperlipidemia: Plan: Continue pravastatin (10) GERD (gastroesophageal reflux disease): Plan: Continue pantoprazole (11) History of alcohol abuse: Plan: Continue thiamine 200 mg p.o. twice daily and folic acid 1 mg p.o. daily no etoh withdrawal during this stay (12) Osteoporosis: Plan: Takes alendronate weekly in the outpatient setting check a 25-OH vit D level while here - level pending (13) Hyponatremia: Plan: records indicate a past h/o low sodium at one point she took salt tabs in the past NaCl 1gm daily resumed check bmp in am adrenal insufficiency - salt wasting?? (14) Hypokalemia: Plan: resolved (15) Hypomagnesemia: Plan: replaced and resolved repeat mag level to ensure still normal (16) Altered taste: Plan: COVID test at admission negative repeat test negative 2nd to sinus disease? other? has not c/o this issue since early week (17) Anemia: Plan: ? 2/2 and of chronic disease 2/2 RA -rechecked iron studies - no Fe def -folate wnl -b12 level robust 1 year ago - defer on recheck of this -no overt GI Bleeding (18) DVT prophylaxis: Plan: heparin 5000 BID (19) Closed coracoid process fracture: Plan: -RIGHT Patient noted to have a closed coracoid fracture of the right upper extremity. Ortho consulted, and sling. May remove sling to sleep or to shower if comfort permits. We will follow-up as outpatient in approximately 4 weeks, continue nonoperative management. Ice as needed. - conservative Rx - sling immobilization - 25-OH vit D level lower limit of normal Plan: dispo - snf for rehab family updated by phone yesterday ok to Tx to med/surg Admission and Anticipated Discharge Date Admission Date: February 25, 2021 Ashley Gomez is seen at the bedside today. She reports she has had 3 bowel movements today, but they are improved from prior and not diarrhealike today. She reports she has had a dry cough for years, no acute cough change, nonproductive. Denies fever and chills. Reports overall she feels "okay "and that she is gradually improving. Is concerned about her strength, discussed that SNF has been recommended but placement/referrals are still being made. No additional questions at time of evaluation. Review of Systems Review of Systems: Constitutional: Denies fever, chills, endorses overall weakness Eyes: Denies vision change ENT: Denies ear pain, sore throat, sinus pain Cardiovascular: Denies Chest pain, chest pressure, palpitations, extremity swelling Respiratory: Denies shortness of breath, sputum production, difficulty breathing. Cough as noted in HPI Gastrointestinal: Denies abdominal pain, nausea, vomiting, constipation, diarrhea. Endorses 3 bowel movements this morning, but not loose/liquid and improved from prior. Genitourinary: Denies dysuria, urinary frequency Musculoskeletal: Denies acute focal weakness Integumentary:Denies acute rash, lesions, bruising Neurological: Denies numbness, tingling Physical Exam Physical Exam: General: A&Ox3. NAD. Cooperative. HEENT: Atraumatic, normocephalic. Visual acuity and hearing grossly intact. Pulm: CTAB A&P. -wheezes, -rales, -rhonchi. Symmetrical chest rise. No increase work of breathing. No respiratory distress. Cardiac: RRR, -mrg. Radial pulses intact and symmetrical. Abdominal: Nontender, nondistended, soft. BS present. Extremities: Right shoulder tender palpation. Left shoulder nontender, full range of motion. Sensation to soft touch intact in hands and feet bilaterally. 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 Results & Data Results & Data ([facility]) Vital Signs (Past 12 Hours) Vital Signs Temp Pulse Resp BP Pulse Ox 03/05/21 15:20 36.7 C 106 H 16 96/59 L 94 03/05/21 15:05 104 H 18 94 03/05/21 11:07 91 H 18 95 03/05/21 07:27 87 18 94 03/05/21 07:13 36.9 C 81 16 121/70 93 PG Care Time/CCT Total # of Minutes Spent Total Time Spent with Patient: Total time spent is greater than 50% in coordination of care (as documented) at patient's floor/unit and/or counseling patient: Coding Level of Care Code 72568 Subseq Hosp Care Lvl 2 Diagnoses Adrenal insufficiency E27.40 Gastroenteritis K52.9 UTI (urinary tract infection) N39.0 Hematuria presence: without hematuria Urinary tract infection type: site unspecified Hypotension I95.9 Frequent falls R29.6 Rheumatoid arthritis M06.9 Hypertension I10 COPD (chronic obstructive pulmonary disease) J44.9 Hyperlipidemia E78.5 GERD (gastroesophageal reflux disease) K21.9 History of alcohol abuse F10.11 Osteoporosis M81.0 Hyponatremia E87.1 Hypokalemia E87.6 Hypomagnesemia E83.42 Altered taste R43.2 Anemia D64.9 DVT prophylaxis Z29.9 Closed coracoid process fracture S42.133A (1) UTI (urinary tract infection) Hematuria presence: without hematuria Urinary tract infection type: site unspecified Qualified Code(s): N39.0 - Urinary tract infection, site not specified
[2021-03-06 07:11] LABS: Eosinophils # (auto) 0.01 K/uL (0-0.5); Eosinophils % (auto) 0.1 %; Hematocrit (blood only) 26.2 % (37-47); Hemoglobin 8.9 g/dL (12.0-16.0); Immature Granulocytes # (auto) 0.02 K/uL (0.00-0.02); Immature Granulocytes % (auto) 0.3 %; Lymphocytes # (auto) 1.92 K/uL (1.2-3.4); Lymphocytes % (auto) 26.4 %; Mean Corpuscular Hemoglobin 33.6 pg (25-34); Mean Corpuscular Volume 98.9 fL (80-100); Mean Platelet Volume 8.7 fL (7.4-10.4); Monocytes # (auto) 0.66 K/uL (0.11-0.59); Monocytes % (auto) 9.1 %; Neutrophils # (auto) 4.65 K/uL (1.4-6.5); Neutrophils % (auto) 64.1 %; Platelet Count 364 K/uL (130-400); RDW Coefficient of Variation 13.9 % (11.5-14.5); RDW Standard Deviation 50.5 fL (36.4-46.3); Red Blood Count 2.65 M/uL (4.2-5.4); White Blood Count 7.26 K/uL (4.8-10.8)
[2021-03-06] MEDS: ALBUT/IPRATROP 3MG/0.5MG NEB 3 ML VIAL NEB SCH ×4 (07:25→18:49)
[2021-03-06 07:30] LABS: BUN Creatinine Ratio 25.5 (10-20); Calcium 8.4 mg/dl (8.5-10.1); Creatinine Clr Calc Pharmacy 116.2 ml/min; Est GFR (African American) 127.1 ml/min; Est GFR (Non-African American) 109.7 ml/min; Potassium 4.1 mmol/L (3.5-5.1)
[2021-03-06] MEDS: HYDROXYCHLOROQUINE SULFATE 200 MG TAB PO SCH ×2 (07:43→20:49)
[2021-03-06] MEDS: HEPARIN SOD 5,000 UNIT/0.5 ML VIAL SQ SCH ×3 (07:43→20:53)
[2021-03-06] MEDS: PANTOprazole 40 MG TAB PO SCH (07:43)
[2021-03-06] MEDS: THIAMINE HCL 100 MG TAB PO SCH ×2 (07:43→20:49)
[2021-03-06] MEDS: MULTIVITAMIN TAB PO SCH (07:44)
[2021-03-06] MEDS: predniSONE 20 MG TAB PO SCH (07:44)
[2021-03-06] MEDS: SODIUM CHLORIDE 1 GM TABLET PO SCH (07:44)
[2021-03-06] MEDS: PRAVASTATIN SOD 10 MG TAB PO SCH (07:44)
[2021-03-06] MEDS: PANCREAZE (LIPASE 10,500U) CAP PO SCH ×3 (07:44→16:09)
[2021-03-06] MEDS: POTASSIUM CHLORIDE PWD 20 MEQ PACK PO SCH ×2 (07:45→20:48)
[2021-03-06] MEDS: BUTT PASTE (ZINC OXIDE 16%) 171 APPLN/57 GM JAR EXT SCH ×3 (07:45→16:09)
[2021-03-06] MEDS: ADVANCED PROBIOTIC 1250 MG CAPSULE PO SCH (08:16)
[2021-03-06] MEDS: FOLIC ACID 1 MG TAB PO SCH (08:16)
--- NOTE | 2021-03-06 16:04 | Hospitalist Progress Note ---
Date of Service March 06, 2021 Assessment & Plan (1) Adrenal insufficiency: Plan: Jason is a 60-year-old female with a history of anemia, adrenal insufficiency, frequent falls, GERD, alcohol abuse who presented with concern for gastroenteritis/hypokalemia/hyponatremia she was found to have a closed coracoid process fracture during admission. Discussion: Pending placement, updated PT/OT, referral to [facility] placed Adrenal insufficiency - formal cosyntropin stim test --- did not stim to >18 -past stim test in 2017 - also failed that one - ACTH level at that time was wnl, repeat pending - given diarrhea, low sodium, low BP, etc -- started prednisone 20mg daily - Continue prednisone 20 mg daily - refer to endo post-d/c - free T4 is low-normal - May consider low-dose replacement as outpatient (FT4 is 0.82; <0.80 is deficient) - prolactin normal (2) Gastroenteritis: Plan: -CT with duodenitis at time of admission - placed on PPI -also with jejunal inflammation, unclear etiology? Viral -diarrhea had responded to questran, then diarrhea returned -? pancreatic insufficiency given heavy drinking for many years (along w/ weight loss)? -placed on trial of creon TID w/ meals, diarrhea improving -holding questran -since c diff is neg will also allow her imodium prn -if diarrhea recurs/worsens then pursue GI consultation (3) UTI (urinary tract infection): Plan: -2nd klebsiella -completed 7 day course of IV/PO abx -off abx at this time (4) Hypotension: Plan: 2nd to volume depletion, adrenal insufficiency, etc resolved ? Volume depletion with poor nutrition can be immune to hypoalbuminemia. CMP pending, consider boost, bolus as needed (5) Frequent falls: Plan: -PT, OT -living conditions unsafe as she is alone much of the time, can't get to doctor appts, has falls, etc -PT advising rehab -patient agreeable to such -referrals are out to multiple SNFs Patient noted to have a closed coracoid fracture of the right upper extremity. Ortho consulted, and sling. May remove sling to sleep or to shower if comfort permits. We will follow-up as outpatient in approximately 4 weeks, continue nonoperative management. Ice as needed. (6) Rheumatoid arthritis: Plan: Hydroxychloroquine 200 mg p.o. twice daily resumed at admission Prednisone for presumed adrenal sufficiency will control her RA as well RA flare improved with above needs to re-establish care with rheumatology (7) Hypertension: Plan: stopped BP meds; BPs controlled without those meds (8) COPD (chronic obstructive pulmonary disease): Plan: exacerbation resolved COVID neg x 2 cont bronchodilators (9) Hyperlipidemia: Plan: Continue pravastatin (10) GERD (gastroesophageal reflux disease): Plan: Continue pantoprazole (11) History of alcohol abuse: Plan: Continue thiamine 200 mg p.o. twice daily and folic acid 1 mg p.o. daily no etoh withdrawal during this stay (12) Osteoporosis: Plan: Takes alendronate weekly in the outpatient setting check a 25-OH vit D level while here - level pending (13) Hyponatremia: Plan: records indicate a past h/o low sodium at one point she took salt tabs in the past NaCl 1gm daily resumed check bmp in am adrenal insufficiency - salt wasting?? (14) Hypokalemia: Plan: resolved (15) Hypomagnesemia: Plan: replaced and resolved repeat mag level to ensure still normal (16) Altered taste: Plan: COVID test at admission negative repeat test negative 2nd to sinus disease? other? has not c/o this issue since early week (17) Anemia: Plan: ? 2/2 and of chronic disease 2/2 RA -rechecked iron studies - no Fe def -folate wnl -b12 level robust 1 year ago - defer on recheck of this -no overt GI Bleeding (18) DVT prophylaxis: Plan: heparin 5000 BID (19) Closed coracoid process fracture: Plan: -RIGHT Patient noted to have a closed coracoid fracture of the right upper extremity. Ortho consulted, and sling. May remove sling to sleep or to shower if comfort permits. We will follow-up as outpatient in approximately 4 weeks, continue nonoperative management. Ice as needed. - conservative Rx - sling immobilization - 25-OH vit D level lower limit of normal Plan: dispo - snf for rehab Admission and Anticipated Discharge Date Admission Date: February 25, 2021 Subjective Seen at the bedside today. She was wondering how her steroid dosing was doing, overall no questions or concerns just waiting for placement news. She reports she has felt well today, has a chronic nonproductive cough intermittently otherwise denies symptoms today. Review of Systems Review of Systems: Constitutional: Denies fever, chills, endorses overall weakness Eyes: Denies vision change ENT: Denies ear pain, sore throat, sinus pain Cardiovascular: Denies Chest pain, chest pressure, palpitations, extremity swelling Respiratory: Denies shortness of breath, sputum production, difficulty breathing. Chronic cough. Gastrointestinal: Denies abdominal pain, nausea, vomiting, constipation, diarrhea. Endorses 1 bowel movement this afternoon, but not loose/liquid and improved from prior. Genitourinary: Denies dysuria, urinary frequency Musculoskeletal: Denies acute focal weakness Integumentary:Denies acute rash, lesions, bruising Neurological: Denies numbness, tingling Physical Exam Physical Exam: General: A&Ox3. NAD. Cooperative. HEENT: Atraumatic, normocephalic. Visual acuity and hearing grossly intact. Pulm: CTAB A&P. -wheezes, -rales, -rhonchi. Symmetrical chest rise. No increase work of breathing. No respiratory distress. Cardiac: RRR, -mrg. Radial pulses intact and symmetrical. Abdominal: Nontender, nondistended, soft. BS present. Extremities: Right shoulder tender to palpation. Left shoulder nontender, full range of motion. Sensation to soft touch intact in hands and feet bilaterally. 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 Results & Data Results & Data ([facility]) Vital Signs (Past 12 Hours) Vital Signs Temp Pulse Resp BP Pulse Ox 03/06/21 15:00 81 18 95 03/06/21 14:35 37.0 C 98 H 16 98/61 L 93 03/06/21 11:36 85 18 95 03/06/21 07:25 78 18 95 03/06/21 07:10 36.6 C 80 16 119/68 95 PG Care Time/CCT Total # of Minutes Spent Total Time Spent with Patient: Total time spent is greater than 50% in coordin ation of care (as documented) at patient's floor/unit and/or counseling patient: Coding Level of Care Code 82005 Subseq Hosp Care Lvl 1 Diagnoses Adrenal insufficiency E27.40 Gastroenteritis K52.9 UTI (urinary tract infection) N39.0 Hematuria presence: without hematuria Urinary tract infection type: site unspecified Hypotension I95.9 Frequent falls R29.6 Rheumatoid arthritis M06.9 Hypertension I10 COPD (chronic obstructive pulmonary disease) J44.9 Hyperlipidemia E78.5 GERD (gastroesophageal reflux disease) K21.9 History of alcohol abuse F10.11 Osteoporosis M81.0 Hyponatremia E87.1 Hypokalemia E87.6 Hypomagnesemia E83.42 Altered taste R43.2 Anemia D64.9 DVT prophylaxis Z29.9 Closed coracoid process fracture S42.133A (1) UTI (urinary tract infection) Hematuria presence: without hematuria Urinary tract infection type: site unspecified Qualified Code(s): N39.0 - Urinary tract infection, site not specified
[2021-03-07] MEDS: ALBUT/IPRATROP 3MG/0.5MG NEB 3 ML VIAL NEB SCH ×4 (06:28→20:01)
[2021-03-07 07:12] LABS: Eosinophils # (auto) 0.03 K/uL (0-0.5); Eosinophils % (auto) 0.4 %; Hematocrit (blood only) 27.1 % (37-47); Hemoglobin 9.2 g/dL (12.0-16.0); Immature Granulocytes # (auto) 0.03 K/uL (0.00-0.02); Immature Granulocytes % (auto) 0.4 %; Lymphocytes # (auto) 1.95 K/uL (1.2-3.4); Lymphocytes % (auto) 27.4 %; Mean Corpuscular Hemoglobin 33.6 pg (25-34); Mean Corpuscular Hgb Conc 33.9 g/dL (32-36); Mean Corpuscular Volume 98.9 fL (80-100); Mean Platelet Volume 8.2 fL (7.4-10.4); Monocytes # (auto) 0.55 K/uL (0.11-0.59); Monocytes % (auto) 7.7 %; Neutrophils # (auto) 4.55 K/uL (1.4-6.5); Neutrophils % (auto) 64.1 %; Platelet Count 342 K/uL (130-400); RDW Coefficient of Variation 13.8 % (11.5-14.5); RDW Standard Deviation 49.4 fL (36.4-46.3); Red Blood Count 2.74 M/uL (4.2-5.4); White Blood Count 7.11 K/uL (4.8-10.8)
[2021-03-07 07:46] LABS: BUN Creatinine Ratio 22.2 (10-20); Calcium 8.8 mg/dl (8.5-10.1); Creatinine Clr Calc Pharmacy 118.9 ml/min; Est GFR (African American) 128.1 ml/min; Est GFR (Non-African American) 110.5 ml/min; Potassium 3.7 mmol/L (3.5-5.1)
[2021-03-07] MEDS: HEPARIN SOD 5,000 UNIT/0.5 ML VIAL SQ SCH ×3 (09:07→20:49)
[2021-03-07] MEDS: predniSONE 20 MG TAB PO SCH (09:50)
[2021-03-07] MEDS: SODIUM CHLORIDE 1 GM TABLET PO SCH (09:50)
[2021-03-07] MEDS: THIAMINE HCL 100 MG TAB PO SCH ×2 (09:50→20:29)
[2021-03-07] MEDS: MULTIVITAMIN TAB PO SCH (09:50)
[2021-03-07] MEDS: POTASSIUM CHLORIDE PWD 20 MEQ PACK PO SCH ×3 (09:50→20:50)
[2021-03-07] MEDS: ADVANCED PROBIOTIC 1250 MG CAPSULE PO SCH (09:50)
[2021-03-07] MEDS: FOLIC ACID 1 MG TAB PO SCH (09:50)
[2021-03-07] MEDS: PANCREAZE (LIPASE 10,500U) CAP PO SCH ×3 (09:50→17:30)
[2021-03-07] MEDS: PRAVASTATIN SOD 10 MG TAB PO SCH (09:50)
[2021-03-07] MEDS: HYDROXYCHLOROQUINE SULFATE 200 MG TAB PO SCH ×2 (09:50→20:30)
[2021-03-07] MEDS: PANTOprazole 40 MG TAB PO SCH (09:50)
--- NOTE | 2021-03-07 18:00 | Hospitalist Progress Note ---
Date of Service March 07, 2021 Assessment & Plan (1) Adrenal insufficiency: Plan: Jason is a 60-year-old female with a history of anemia, adrenal insufficiency, frequent falls, GERD, alcohol abuse who presented with concern for gastroenteritis/hypokalemia/hyponatremia she was found to have a closed coracoid process fracture during admission. Discussion: Pending placement, updated PT/OT, [facility] placed with [facility]o pended. Referrals also placed to [facility] and messages left should [facility] be denied. Adrenal insufficiency - formal cosyntropin stim test --- did not stim to >18 -past stim test in 2017 - also failed that one - ACTH level at that time was wnl, repeat pending - given diarrhea, low sodium, low BP, etc -- started prednisone 20mg daily - Continue prednisone 20 mg daily - refer to endo post-d/c - free T4 is low-normal - May consider low-dose replacement as outpatient (FT4 is 0.82; <0.80 is deficient) - prolactin normal (2) Gastroenteritis: Plan: -CT with duodenitis at time of admission - placed on PPI -also with jejunal inflammation, unclear etiology? Viral -diarrhea had responded to questran, then diarrhea returned -? pancreatic insufficiency given heavy drinking for many years (along w/ weight loss)? -placed on trial of creon TID w/ meals, diarrhea improving -holding questran -since c diff is neg will also allow her imodium prn -if diarrhea recurs/worsens then pursue GI consultation (3) UTI (urinary tract infection): Plan: -2nd klebsiella -completed 7 day course of IV/PO abx -off abx at this time (4) Hypotension: Plan: 2nd to volume depletion, adrenal insufficiency, etc resolved ? Volume depletion with poor nutrition can be immune to hypoalbuminemia. CMP pending, consider boost, bolus as needed (5) Frequent falls: Plan: -PT, OT -living conditions unsafe as she is alone much of the time, can't get to doctor appts, has falls, etc -PT advising rehab -patient agreeable to such -referrals are out to multiple SNFs Patient noted to have a closed coracoid fracture of the right upper extremity. Ortho consulted, and sling. May remove sling to sleep or to shower if comfort permits. We will follow-up as outpatient in approximately 4 weeks, continue nonoperative management. Ice as needed. (6) Rheumatoid arthritis: Plan: Hydroxychloroquine 200 mg p.o. twice daily resumed at admission Prednisone for presumed adrenal sufficiency will control her RA as well RA flare improved with above needs to re-establish care with rheumatology (7) Hypertension: Plan: stopped BP meds; BPs controlled without those meds (8) COPD (chronic obstructive pulmonary disease): Plan: exacerbation resolved COVID neg x 2 cont bronchodilators (9) Hyperlipidemia: Plan: Continue pravastatin (10) GERD (gastroesophageal reflux disease): Plan: Continue pantoprazole (11) History of alcohol abuse: Plan: Continue thiamine 200 mg p.o. twice daily and folic acid 1 mg p.o. daily no etoh withdrawal during this stay (12) Osteoporosis: Plan: Takes alendronate weekly in the outpatient setting check a 25-OH vit D level while here - level pending (13) Hyponatremia: Plan: records indicate a past h/o low sodium at one point she took salt tabs in the past NaCl 1gm daily resumed check bmp in am adrenal insufficiency - salt wasting?? (14) Hypokalemia: Plan: resolved (15) Hypomagnesemia: Plan: replaced and resolved repeat mag level to ensure still normal (16) Altered taste: Plan: COVID test at admission negative repeat test negative 2nd to sinus disease? other? has not c/o this issue since early week (17) Anemia: Plan: ? 2/2 and of chronic disease 2/2 RA -rechecked iron studies - no Fe def -folate wnl -b12 level robust 1 year ago - defer on recheck of this -no overt GI Bleeding (18) DVT prophylaxis: Plan: heparin 5000 BID (19) Closed coracoid process fracture: Plan: -RIGHT Patient noted to have a closed coracoid fracture of the right upper extremity. Ortho consulted, and sling. May remove sling to sleep or to shower if comfort permits. We will follow-up as outpatient in approximately 4 weeks, continue nonoperative management. Ice as needed. - conservative Rx - sling immobilization - 25-OH vit D level lower limit of normal Plan: dispo - snf for rehab Admission and Anticipated Discharge Date Admission Date: February 25, 2021 Subjective Resting comfortably today. No acute distress, no pain, no change in symptoms. Speech continues to be somewhat difficult to appreciate but alert and oriented. Pending dispo Review of Systems Review of Systems: All systems reviewed & are unremarkable except as noted in Subjective Physical Exam Physical Exam: General: A&Ox3. NAD. Cooperative. HEENT: Atraumatic, normocephalic. Visual acuity and hearing grossly intact. Pulm: CTAB A&P. -wheezes, -rales, -rhonchi. Symmetrical chest rise. No increase work of breathing. No respiratory distress. Cardiac: RRR, -mrg. Radial pulses intact and symmetrical. Abdominal: Nontender, nondistended, soft. BS present. Extremities: Right shoulder tender to palpation. Left shoulder nontender, full range of motion. Sensation to soft touch intact in hands and feet bilaterally. [employer] strength and ankle dorsiflexion/plantar flexion intact and symmetrical bilaterally. Results & Data Results & Data ([facility]) Vital Signs (Past 12 Hours) Vital Signs Temp Pulse Resp BP Pulse Ox 03/07/21 15:34 36.6 C 90 16 119/76 95 03/07/21 14:51 94 H 18 95 03/07/21 10:48 88 18 94 03/07/21 07:39 36.6 C 90 20 100/65 97 03/07/21 06:28 74 18 97 PG Care Time/CCT Total # of Minutes Spent Total Time Spent with Patient: Total time spent is greater than 50% in coordination of care (as documented) at patient's floor/unit and/or counseling patient: Coding Level of Care Code 46943 Subseq Hosp Care Lvl 1 Diagnoses Adrenal insufficiency E27.40 Gastroenteritis K52.9 UTI (urinary tract infection) N39.0 Hematuria presence: without hematuria Urinary tract infection type: site unspecified Hypotension I95.9 Frequent falls R29.6 Rheumatoid arthritis M06.9 Hypertension I10 COPD (chronic obstructive pulmonary disease) J44.9 Hyperlipidemia E78.5 GERD (gastroesophageal reflux disease) K21.9 History of alcohol abuse F10.11 Osteoporosis M81.0 Hyponatremia E87.1 Hypokalemia E87.6 Hypomagnesemia E83.42 Altered taste R43.2 Anemia D64.9 DVT prophylaxis Z29.9 Closed coracoid process fracture S42.133A (1) UTI (urinary tract infection) Hematuria presence: without hematuria Urinary tract infection type: site unspecified Qualified Code(s): N39.0 - Urinary tract infection, site not s pecified
[2021-03-08] MEDS: ALBUT/IPRATROP 3MG/0.5MG NEB 3 ML VIAL NEB SCH ×3 (07:49→15:38)
[2021-03-08] MEDS: PANCREAZE (LIPASE 10,500U) CAP PO SCH ×2 (08:43→12:35)
[2021-03-08] MEDS: POTASSIUM CHLORIDE PWD 20 MEQ PACK PO SCH (09:46)
[2021-03-08] MEDS: HEPARIN SOD 5,000 UNIT/0.5 ML VIAL SQ SCH (09:47)
[2021-03-08] MEDS: FOLIC ACID 1 MG TAB PO SCH (09:48)
[2021-03-08] MEDS: ADVANCED PROBIOTIC 1250 MG CAPSULE PO SCH (09:48)
[2021-03-08] MEDS: THIAMINE HCL 100 MG TAB PO SCH (09:48)
[2021-03-08] MEDS: HYDROXYCHLOROQUINE SULFATE 200 MG TAB PO SCH (09:48)
[2021-03-08] MEDS: PANTOprazole 40 MG TAB PO SCH (09:48)
[2021-03-08] MEDS: SODIUM CHLORIDE 1 GM TABLET PO SCH (09:48)
[2021-03-08] MEDS: MULTIVITAMIN TAB PO SCH (09:48)
[2021-03-08] MEDS: predniSONE 20 MG TAB PO SCH (09:48)
[2021-03-08] MEDS: PRAVASTATIN SOD 10 MG TAB PO SCH (09:48)
--- NOTE | 2021-03-08 11:54 | Discharge Summary ---
Date of Service March 08, 2021 Admission HPI Per Admitting Provider The patient is a 60-year-old female with past medical history including note arthritis, osteoporosis, hypertension, iron deficiency, COPD, GERD, hyperlipidemia, history of GI bleed, alcohol use disorder, tobacco use disorder, hypomagnesemia, hypokalemia, and ambulatory dysfunction causing recurrent falls. The patient reports symptoms as noted above. She reports that she has not derived any of her medications or at least the past 6 months due to not having a ride to get to the pharmacy. She reports that she lives with a boyfriend. Admission Exam Per Admitting Provider The patient is awake, lethargic, looks well beyond her stated age of 60, lying in bed and in no acute distress. HEENT--PERRL, EOMI, mucous membranes and oropharynx dry. Neck--supple. No JVD. No bruits. Thyroid normal, trachea midline, no adenopathy. Heart--normal S1 and S2. No murmurs, rubs or gallops. Lungs--clear bilaterally, no respiratory distress, no accessory muscle use. Abdomen--normal bowel sounds and soft. Nontender. Nondistended Extremities--no edema Dermatologic--skin is very dry. Excoriations on buttocks bilaterally. Erythema bilateral heels Neurologic--limited exam due to pain Rheumatologic--limited exam due to pain Psychiatric--normal affect. Principal Diagnosis UTI Failure to thrive Coracoid process fracture Discharge Exam General: A&Ox3. NAD. Cooperative. HEENT: Atraumatic, normocephalic. Visual acuity and hearing grossly intact. Pulm: CTAB A&P. -wheezes, -rales, -rhonchi. Symmetrical chest rise. No increase work of breathing. No respiratory distress. Cardiac: RRR, -mrg. Radial pulses intact and symmetrical. Abdominal: Nontender, nondistended, soft. BS present. Extremities: Right shoulder minimally tender to palpation. Left shoulder nontender, full range of motion. Sensation to soft touch intact in hands and feet bilaterally. [employer] strength and ankle dorsiflexion/plantar flexion intact and symmetrical bilaterally. Discharge Data Allergies Allergy/AdvReac Type Severity Reaction Status Date / Time Penicillins Allergy Mild rash Verified 02/24/21 22:34 Consultations 02/25/21 02:09 ED Decision to Admit Stat 03/02/21 11:56 Consult Orthopedic Surgery Routine Ordered Studies 02/24/21 22:02 CT abd pelvis IV con only Urgent Hospital Course (1) Adrenal insufficiency: Jason is a 60-year-old female with a history of anemia, adrenal insufficiency, frequent falls, GERD, alcohol abuse who presented with concern for gastroenteritis/hypokalemia/hyponatremia she was found to have a closed coracoid process fracture during admission. Discussion: Pending placement, updated PT/OT, referral [facility] placed with Ortho pended. Referrals also placed to [facility] and messages left should [facility] be denied. To do as outpatient: 1. Follow-up with orthopedic, medical management of close coracoid fracture of right shoulder 2. Follow-up with endocrine for adrenal insufficiency, continue prednisone 20 mg daily 3. Follow-up for hyponatremia, repeat BMP within 1 week. Continued on salt tabs at discharge 4. Continual nutritional assessment and rehab for failure to thrive/weakness 5. Ambulatory blood pressure monitoring. Home blood pressure medicine stopped during admission patient remained normotensive during admission. Adrenal insufficiency - formal cosyntropin stim test --- did not stim to >18 -past stim test in 2017 - also failed that one - ACTH level at that time was wnl, repeat pending - given diarrhea, low sodium, low BP, etc -- started prednisone 20mg daily - Continue prednisone 20 mg daily - referred to endo post-d/c - free T4 is low-normal - May consider low-dose replacement as outpatient (FT4 is 0.82; <0.80 is deficient) - prolactin normal (2) Gastroenteritis: -CT with duodenitis at time of admission - placed on PPI -also with jejunal inflammation, unclear etiology? Viral -diarrhea had responded to questran, then diarrhea returned -? pancreatic insufficiency given heavy drinking for many years (along w/ weight loss)? -placed on trial of creon TID w/ meals, diarrhea improved -holding questran. Continued Creon on discharge -since c diff is neg will also allow her imodium prn -if diarrhea recurs/worsens then pursue GI consultation (3) UTI (urinary tract infection): -2nd klebsiella -completed 7 day course of IV/PO abx -off abx at this time (4) Hypotension: 2nd to volume depletion, adrenal insufficiency, etc resolved ? Volume depletion with poor nutrition can be immune to hypoalbuminemia. Continue boost/nutritional supplementation as needed (5) Frequent falls: -PT, OT -living conditions unsafe as she is alone much of the time, can't get to doctor appts, has falls, etc -PT advising rehab -patient agreeable to such Patient noted to have a closed coracoid fracture of the right upper extremity. Ortho consulted, and sling. May remove sling to sleep or to shower if comfort permits. follow-up as outpatient in approximately 4 weeks, continue nonoperative management. Ice as needed. (6) Rheumatoid arthritis: Hydroxychloroquine 200 mg p.o. twice daily resumed at admission Prednisone for presumed adrenal sufficiency will control her RA as well RA flare improved with above needs to re-establish care with rheumatology (7) Hypertension: stopped BP meds; BPs controlled without those meds (8) COPD (chronic obstructive pulmonary disease): exacerbation resolved COVID neg x 2 cont bronchodilators (9) Hyperlipidemia: Continue pravastatin (10) GERD (gastroesophageal reflux disease): Continue pantoprazole (11) History of alcohol abuse: Continue thiamine 200 mg p.o. twice daily and folic acid 1 mg p.o. daily no etoh withdrawal during this stay (12) Osteoporosis: Takes alendronate weekly in the outpatient setting 5OH vitamin D level 41 during admission Continue multivitamin plus vitamin D supplements (13) Hyponatremia: records indicate a past h/o low sodium at one point she took salt tabs in the past Continue adrenal supplementation as noted above Salt tablets resumed with uptrending sodium, asymptomatic Sodium greater than 130 during admission, recheck in approximately 1 week as outpatient and adjust salt tablets as needed (14) Hypokalemia: resolved (15) Hypomagnesemia: replaced and resolved repeat mag level to ensure still normal (16) Altered taste: COVID test at admission negative repeat test negative 2nd to sinus disease? Resolved/improved (17) Anemia: ? 2/2 and of chronic disease 2/2 RA -rechecked iron studies - no Fe def -folate wnl -b12 level robust 1 year ago - defer on recheck of this -no overt GI Bleeding (18) DVT prophylaxis: heparin 5000 BID with no signs of DVT during admission (19) Closed coracoid process fracture: -RIGHT Patient noted to have a closed coracoid fracture of the right upper extremity. Ortho consulted, and sling. May remove sling to sleep or to shower if comfort permits. We will follow-up as outpatient in approximately 4 weeks, continue nonoperative management. Ice as needed. - conservative Rx - sling immobilization - 25-OH vit D level lower limit of normal (20) Pancreatic insufficiency: Creon as noted above, suspected due to prior alcohol use Continue outpatient follow Total Time Total Time Spent Total Time Spent (In Minutes): Total time spent preparing discharge approximately 35 minutes including direct patient care, documentation, review of labs and images Discharge Plan Discharge Items Patient Disposition: Transfer Inpatient Rehab Fac Reason For Visit: UTI, RA FLARE, FTT Discharge Diagnosis: UTI Adrenal Insufficiency Weakness, Failure to Thrive Activity: Per Instructions section Non-emergency contact: Primary Care Provider Call non-emergency contact if: you have any medication questions, your symptoms worsen and you have a fever Follow-up/Referrals: Darian Lopez [Primary Care Provider] - Diet: Heart Healthy Addtl Attending Provider Instructions: You are seen in the hospital and treated for gastroenteritis/hypokalemia/hyponatremia and were found to have a closed coracoid process and overall weakness during admission. He did clinically well, but were noted to have adrenal insufficiency and were placed on steroids during admission. Your gastroenteritis symptoms improved. You had also been treated for a UTI, no additional antibiotics were indicated at time of discharge. Due to frequent falls and weakness PT recommended re[facility]. You have been prescribed a steroid medication, prednisone for adrenal insufficiency. Please take prednisone 20 mg daily and follow-up with endocrine as noted below will advise you when to stop this medication or whether a dose adjustment is required. You have been prescribed Creon tablets for pancreatic insufficiency, which may be related to past alcohol use. Please take 1 capsule with meals and follow-up with your primary care provider on whether ongoing treatment with these capsules is required. You had a history of hyponatremia which is gradually improving, you have been prescribed a salt tablet daily to help improve this please take sodium chloride 1 g daily by mouth. Your sodium level should be checked within 1 week of discharge. Your home blood pressure medicines were held as your blood pressure was low during admission. You were found to have normal blood pressure without these medications, as result your amlodipine and spironolactone have been stopped. Please have your blood pressure followed as an outpatient and your primary care provider will advise whether either of these medications need to be restarted in the future. A followup appointment is being scheduled for you with your PCP Dr. Lopez. You should be seen seen within 1 month. You should receive a call to confirm this appointment. If you do not receive a call within 48 hours to confirm this appointment, or need to change this appointment, please call the provider's office at . Follow-up appointment is being scheduled for you with endocrinology. You should receive confirmation of this appointment within 1 week. You should be seen within 1 month. If you do not hear regarding this appointment, please call the endocrinology office at . If you develop any new or worsening symptoms including fever, chills, sweats, chest pain, chest pressure, difficulty breathing, uncontrolled nausea/vomiting, rash, wheezing, passing out or nearly passing out, bleeding, black/bloody bowel movements, or other new or concerning symptoms please call your primary care physician at , or call 911 for re-evaluation in the emergency department if you are very concerned. Pending Studies at Discharge: Yes (Repeat BMP within 1 week) Stand-Alone Forms: My [facility] Skilled Items Patient informed of condition?: Yes DNR: No Discharge Level of Care: Acute rehab Communicable Disease: No Discharge Prognosis: Stable Lines: None Urinary Catheter: No Medications and DC Order Prescriptions: New sodium chloride 1 gram Tablet 1 g PO DAILY 30 Days Qty: 30 RF: 0 Creon 36,000-114,000- 180,000 unit Capsule,Delayed Release(Dr/Ec) 1 cap PO AC Qty: 90 RF: 0 prednisone 20 mg Tablet 20 mg PO QAM 30 Days Qty: 30 RF: 0 Continued multivitamin [Daily-Matthew] Tablet 1 tab PO DAILY RF: 0 pravastatin 10 mg tablet 10 mg PO DAILY RF: 0 folic acid 1 mg tablet 1 mg PO DAILY RF: 0 hydroxychloroquine 200 mg tablet 200 mg PO BID RF: 0 cholecalciferol (vitamin D3) [Vitamin D3] 50 mcg (2,000 unit) capsule 2,000 mcg PO DAILY RF: 0 magnesium oxide 400 mg magnesium capsule 400 mg PO DAILY Qty: 30 RF: 1 thiamine HCl (vitamin B1) 100 mg tablet 200 mg PO BID Qty: 0 RF: 0 meloxicam 15 mg tablet 15 mg PO DAILY RF: 0 alendronate 70 mg tablet 70 mg PO WK RF: 0 pantoprazole 20 mg tablet,delayed release (DR/EC) 20 mg PO DAILY RF: 0 ferrous sulfate 325 mg (65 mg iron) tablet 325 mg PO BID RF: 0 fluticasone propionate 50 mcg/actuation spray,suspension 2 spray INTRANASAL DAILY RF: 0 potassium chloride 10 mEq capsule, extended release 20 meq PO DAILY RF: 0 ipratropium-albuterol 0.5 mg-3 mg(2.5 mg base)/3 mL solution for nebulization 3 ml NEB QID RF: 0 Discontinued amlodipine 5 mg tablet 5 mg PO DAILY RF: 0 spironolactone 25 mg tablet 25 mg PO DAILY RF: 0 Discharge Orders: Discharge Order (Routine); Ordered 03/08/21 Ordered By: Teddy Wong Admission Data Admit Date/Time: 02/25/21 03:33 Attending Provider: Teddy Wong Admit Provider: Sukhwinder Hannah Primary Care Provider: Darian Lopez Other Providers: Ras Laura ; Darrell Mccall ; [facility] ; Sukhwinder Hannah ; Nelson Harvey Coding Level of Care Code D/C DAY MANAGEMENT >30 MINS Diagnoses Adrenal insufficiency E27.40 Gastroenteritis K52.9 UTI (urinary tract infection) N39.0 Hematuria presence: without hematuria Urinary tract infection type: site unspecified Hypotension I95.9 Frequent falls R29.6 Rheumatoid arthritis M06.9 Hypertension I10 COPD (chronic obstructive pulmonary disease) J44.9 Hyperlipidemia E78.5 GERD (gastroesophageal reflux disease) K21.9 History of alcohol abuse F10.11 Osteoporosis M81.0 Hyponatremia E87.1 Hypokalemia E87.6 Hypomagnesemia E83.42 Altered taste R43.2 Anemia D64.9 DVT prophylaxis Z29.9 Closed coracoid process fracture S42.133A Pancreatic insufficiency K86.89
== END 2021-03-08 17:11 | DRG 392 ==
LOC: ED 21:53 → EDINP 02-25 03:33 → SUATTDRO 02-25 03:33 → 1E 02-25 04:02 → 2W 02-25 21:59 → 3N 03-04 13:04

== ENCOUNTER 2021-10-23 14:49 | Inpatient (IN) ==
[2021-10-23] MEDS ORDERED: ONDANSETRON INJ 2 MG/ML 2 ML VIAL IV STA (15:00)
[2021-10-23 16:25] LABS: Basophils # (auto) 0.01 K/uL (0-0.2); Basophils % (auto) 0.2 %; Eosinophils # (auto) 0.07 K/uL (0-0.5); Eosinophils % (auto) 1.2 %; Hemoglobin 10.6 g/dL (12.0-16.0); Immature Granulocytes # (auto) 0.02 K/uL (0.00-0.02); Immature Granulocytes % (auto) 0.3 %; Lymphocytes # (auto) 1.46 K/uL (1.2-3.4); Lymphocytes % (auto) 24.7 %; Mean Corpuscular Hemoglobin 32.6 pg (25-34); Mean Corpuscular Hgb Conc 36.6 g/dL (32-36); Mean Corpuscular Volume 89.2 fL (80-100); Mean Platelet Volume 9.1 fL (7.4-10.4); Monocytes # (auto) 0.74 K/uL (0.11-0.59); Monocytes % (auto) 12.5 %; Neutrophils # (auto) 3.61 K/uL (1.4-6.5); Neutrophils % (auto) 61.1 %; Platelet Count 341 K/uL (130-400); RDW Coefficient of Variation 12.4 % (11.5-14.5); RDW Standard Deviation 40.1 fL (36.4-46.3); Red Blood Count 3.25 M/uL (4.2-5.4); White Blood Count 5.91 K/uL (4.8-10.8)
--- NOTE | 2021-10-23 16:41 | Electrocardiogram Report ---
Test Reason : Blood Pressure : / mmHG Vent. Rate : 105 BPM Atrial Rate : 086 BPM P-R Int : 000 ms QRS Dur : 070 ms QT Int : 346 ms P-R-T Axes : 000 -03 068 degrees QTc Int : 457 ms Poor data quality, interpretation may be adversely affected Probable Sinus rhythm Low voltage QRS Possible Old Septal infarct (cited on or before 23-OCT-2019) Abnormal ECG When compared with ECG of 24-FEB-2021 22:47, No significant change Confirmed by Naeem Jessica ([id number]) on 10/23/2021 4:41:02 PM Referred By: Confirmed By:Naeem Jessica
[2021-10-23] MEDS ORDERED: SODIUM CHLORIDE 0.9% 1000ML 1,000 ML IV ONE ×2 (17:13→18:52)
[2021-10-23] MEDS ORDERED: ONDANSETRON INJ 2 MG/ML 2 ML VIAL ONE (18:38)
[2021-10-23 18:49] LABS: Alanine Aminotransferase 8 U/L (7-52); Albumin Globulin Ratio 1.1 (0.9-2); Albumin Level 2.8 gm/dl (3.4-5.0); Alkaline Phosphatase 110 U/L (34-104); Anion Gap 8 (3-11); Aspartate Aminotransferase 19 U/L (13-39); BUN Creatinine Ratio 5.7 (10-20); Bilirubin,Total 0.7 mg/dl (0.2-1.0); Blood Urea Nitrogen 2 mg/dl (6-23); Calcium 7.4 mg/dl (8.5-10.1); Carbon Dioxide 21 mmol/L (21-32); Chloride 94 mmol/L (98-107); Est GFR (African American) 138.1 ml/min; Est GFR (Non-African American) 119.1 ml/min; Globulin 2.5 gm/dl (2.5-4.0); Glucose 86 mg/dl (70-99(Fasting)); Lipase 17 U/L (11-82); Sodium 123 mmol/L (136-145); Total Protein 5.3 gm/dl (6.0-8.3)
[2021-10-23] MEDS ORDERED: POTASSIUM CHLORIDE / WTR 10 MEQ/100 ML PLCT IV ONE (18:52)
[2021-10-23] MEDS ORDERED: MAGNESIUM SULFATE / D5W 1 GM/100 ML BAG IV STA (19:41)
[2021-10-23] MEDS ORDERED: OPTIRAY 320 100ml IV ONE (19:45)
--- NOTE | 2021-10-23 20:24 | CT Scan Report ---
CT OF THE ABDOMEN AND PELVIS WITH CONTRAST CLINICAL HISTORY: Abdominal pain, vomiting, diarrhe.a COMPARISON STUDY: CT of the abdomen and pelvis February 24, 2021. TECHNIQUE: Following IV administration of 93 mL of Optiray, axial images of the abdomen and pelvis we re obtained from the lung bases to the proximal femurs. Images were reviewed in the axial, sagittal, and coronal planes. IV contrast was administered without complication. Automated exposure control wa s utilized for the study. A dose lowering technique was utilized adhering to the principles of ALARA . CT DOSE: 242.21 mGy.cm FINDINGS: No pneumatosis, free air or portal venous gas is present. Diffuse muscular atrophy is noted . The liver, spleen, adrenal glands, kidneys and pancreas are unremarkable. There are gallstones with in the gallbladder without evidence for acute cholecystitis. There is no biliary or pancreatic ductal dilatation. Caliber and wall thickness of small and large bowel are normal. Appendix is normal. No e vidence for a bowel obstruction. No lymphadenopathy. No fluid collection to suggest an abscess is pre sent. Several old sacral fractures are noted. There are healing right pubic ring fractures. There is an old fracture of the greater trochanter of the right femur. This was present on CT of February 24. Old left pubic ring fractures are present. These have healed. There are several old lumbar spine transverse process and rib fractures. No acute fractures are identified within visualized skeletal st ructures. IMPRESSION: 1. No acute process within the abdomen or pelvis. 2. Cholelithiasis. No evidence for acute cholecystitis. 3. No bowel obstruction. No bowel wall thickening. 4. Healing right pubic ring fractures. Numerous old fractures within the pelvis, lumbar spine and rib s, as described above. ACT 112: Negative or not required by law. Electronically signed by: Gigi Dia M.D. 10/23/2021 8:21 PM
--- NOTE | 2021-10-23 21:55 | History & Physical Report ---
Date of Service October 23, 2021 Assessment & Plan (1) Abdominal pain with vomiting: (2) Hyponatremia: (3) Osteoporosis: (4) History of alcohol abuse: (5) GERD (gastroesophageal reflux disease): (6) Hyperlipidemia: (7) COPD (chronic obstructive pulmonary disease): (8) Rheumatoid arthritis: (9) Adrenal insufficiency: (10) Hypotension: (11) Anemia: (12) Hypomagnesemia: (13) Hypokalemia: (14) Frequent falls: Plan: 60yo Female PMH pancreatic insufficiency adrenal insuficiency alcohol abuse hypotension anemia osteoporosis RA here for 1.5wk abdominal pain vomiting found to be hyponatremic 123 in ED ()Hyponatremia -received 500ml NSS in EMS, 2L NS in ED -last Na 123 -recheck BMP -started on LR 100ml/hr 3L total -am CMP ()hypokalemia, hypomagnesia -K 3 Mg 1 -got 10meq KCl, 1g Mg -ordered 5g Mg, 60 meq Kcl -recheck in AM -check Phos in AM -check ionized calcium AM ()Abd pain with vomitting -may be 2/2 to adrenal insuficciency, dehydration, hyponatremia -recieved 2.5L IVF -recieved zofran -CT abd pelvis : 1. No acute process within the abdomen or pelvis. 2. Cholelithiasis. No evidence for acute cholecystitis. 3. No bowel obstruction. No bowel wall thickening. 4. Healing right pubic ring fractures. Numerous old fractures within the pelvis, lumbar spine and ribs, as described above. -started on LR -started Prednisone 20mg daily per last hospital discharge note ()Intetrigo in Groin -ordered nystatin cream BID ()Pancreatic Insufficiency -continue home creon -normal lipase, CT abd no pancreatitis ()Adrenal Insufficiency -started Prednisone 20mg daily per last hospital discharge note -ordered ACTH recheck ()RA -continue meloxicam ()Hypotension -received IVF, started daily prednisone, continue to monitor ()Osteoporosis -continue aldendronate ()GERD -continue pantoprazole ()HLD -continue pravastatin ()COPD -continue home flovent, combivent, fluticasone ()Anemia -started Prednisone 20mg daily per last hospital discharge note-continue iron supplements FENa: full liquid diet, advance as tolerated Code Status: conditional, rescucitation, DNI DVT PPX: lovenox 40mg daily PT/OT: ordered Case Management: pending Dispo: med/tele, admit inpt Kelli Orellana Do PGY 1, FCM History of Present Illness Chief Complaint: Abdominal Pain and Vomitting Primary Care Provider: Darian Loepz 60yo Female PMH pancreatic insufficiency, adrenal insufficiency, alcohol use disorder, hypotension, anemia, osteoporosis, and RA here for 1.5wk abdominal pain vomiting. Found to be hyponatremic Cu=430 in ED. Patient states she developed abd pain 1.5-2.5wks ago, unsure of what caused it, denied any trauma new foods medications, states her pain has been there constantly. States the pain is currently on her left and right side of abdomen, a bit worse on the lower side, though does complain of epigastric pain on palpation as well. States she has also had vomiting dizziness 1.5wks, has not eaten food in 5-6 days, stopped her medication 2 days ago because it made her feel worse. She has tried to drink some water but states her mouth is still dry. She also describes some pain on her chest under left breast. States her feet are cold. Patient denies back pain SOB. She states 3 wks ago fell hit her head. She states she has a PCP but hasn't seen him recently, maybe sees a doctor once a year. Has not followed up with endocrine. Is not on prednisone at home. Is not on additional medication for her arthritis at home. She only drinks alcohol on weekends. In EMS she received 500ml bolus NS, in ED received additional 2L bolus NS, as well as 10meq KCl and 1g Mg. Allergies Allergy/AdvReac Type Severity Reaction Status Date / Time Penicillins Allergy Intermediate Rash Verified 10/23/21 18:43 Home Medications Medication Instructions Recorded Confirmed Type cholecalciferol (vitamin D3) 50 2,000 mcg PO DAILY 06/19/19 10/23/21 History mcg (2,000 unit) capsule (Vitamin D3) folic acid 1 mg tablet 1 mg PO DAILY 06/19/19 10/23/21 History pravastatin 10 mg tablet 10 mg PO DAILY 06/19/19 10/23/21 History alendronate 70 mg tablet 70 mg PO WK 02/24/21 10/23/21 History ferrous sulfate 325 mg (65 mg 325 mg PO BID 02/24/21 10/23/21 History iron) tablet fluticasone propionate 50 2 spray INTRANASAL DAILY 02/24/21 10/23/21 History mcg/actuation nasal spray,suspension meloxicam 15 mg tablet 15 mg PO DAILY 02/24/21 10/23/21 History pantoprazole 20 mg tablet,delayed 20 mg PO DAILY 02/24/21 10/23/21 History release potassium chloride 10 mEq 20 meq PO BID 02/24/21 10/23/21 History capsule,extended release kifbad-abvddknv-jvtsdot 1 cap PO AC #90 cap 03/08/21 10/23/21 Rx 36,000-114,000-180,000 unit capsule,delay rel (Creon) fluticasone propionate 110 1 inh INHALATION BID 10/23/21 10/23/21 History mcg/actuation HFA aerosol inhaler (Flovent HFA) ipratropium 20 mcg-albuterol 100 1 puff INHALATION BID 10/23/21 10/23/21 History mcg/actuation mist for inhalation (Combivent Respimat) Past Med/Surg History Medical History COPD (chronic obstructive pulmonary disease) GERD (gastroesophageal reflux disease) History of alcohol abuse Hyperlipidemia Hypokalemia Hyponatremia Hypotension Osteoporosis Rheumatoid arthritis Surgical History S/P section Family History Other No significant family history Social History Smoking Status: Current every day smoker Cigarettes Per Day: 1-2/day; Second Hand Exposure: Yes; Do You Dip or Chew Tobacco: No; Hx Alcohol Use: Yes Alcohol type: beer Hx Substance Use: No Preferred Language: Greenlandic Communication Ability: Effective Environmental Compliance Engineer Required: No Beliefs That Will Affect Care: None marital status: Life Partner Current Living Situation: Spouse Current Living Situation Comment: lives with boyfriend current occupational status: unemployed Other Information That Helps Us Care for You: No Feels Safe at Home: Yes Safety Concerns: Feels Safe At This Time Assistive Devices: Denture - Upper, Denture - Lower, Glasses and Walker Review of Systems Review of Systems: see hpi Physical Exam Constitutional: + ill appearing, + disheveled and cooperative Eyes: PERRL, conjunctivae normal, anicteric sclerae ENMT: Mouth: + dry oral mucous membranes Neck: trachea midline, no thyromegaly Respiratory: normal respiratory effort, lungs clear to auscultation Cardiovascular: Rate/Rhythm: regular rate and regular rhythm Heart Sounds: normal S1 and normal S2 Extremities: + edema (+1 b/l LE up to knee) Chest (Breasts): Chest: normal inspection of chest Gastrointestinal (Abdomen): Percussion/Palpation: + abdomen tender (in all quadrants) and abdomen soft Skin: well demarcated erythematous rash on lower abdomen and groin Genitourinary: + external erythema Results & Data Results & Data ([facility]) Vital Signs (Past 12 Hours) Vital Signs Temp Pulse Pulse Resp BP BP Pulse Ox 10/23/21 19:00 36.9 C 89 18 99/85 L 97 10/23/21 14:58 36.0 C L 111 H 16 114/70 99 Laboratory Results 10/23/21 10/23/21 10/23/21 Range/Units 22:07 21:30 17:46 WBC (4.8-10.8) K/uL RBC (4.2-5.4) M/uL Hgb (12.0-16.0) g/dL Hct (37-47) % MCV (80-100) fL MCH (25-34) pg MCHC (32-36) g/dL RDW Std Deviation (36.4-46.3) fL RDW Coeff of Elo (11.5-14.5) % Plt Count (130-400) K/uL MPV (7.4-10.4) fL Immature Gran % (Auto) % Neut % (Auto) % Lymph % (Auto) % [place] % (Auto) % Eos % (Auto) % Baso % (Auto) % Neut # (Auto) (1.4-6.5) K/uL Lymph # (Auto) (1.2-3.4) K/uL [place] # (Auto) (0.11-0.59) K/uL Eos # (Auto) (0-0.5) K/uL Baso # (Auto) (0-0.2) K/uL Immature Gran # (Auto) (0.00-0.02) K/uL Sodium Pending Potassium Pending Chloride Pending Carbon Dioxide Pending Anion Gap Pending BUN Pending Creatinine Pending Est Cr Clr Drug Dosing Pending Est GFR ( Amer) Pending Est GFR (Non-Af Amer) Pending BUN/Creatinine Ratio Pending Glucose Pending Calcium Pending Phosphorus Pending Magnesium 1.0 L (1.7-2.4) mg/dl Total Bilirubin AST ALT Alkaline Phosphatase Total Protein Albumin Globulin Albumin/Globulin Ratio Lipase SARS-CoV-2, RNA, NAAT NEGATIVE (NEGATIVE) 10/23/21 10/23/21 10/23/21 Range/Units 17:46 15:55 15:55 WBC 5.91 (4.8-10.8) K/uL RBC 3.25 L (4.2-5.4) M/uL Hgb 10.6 L (12.0-16.0) g/dL Hct 29.0 L (37-47) % MCV 89.2 (80-100) fL MCH 32.6 (25-34) pg MCHC 36.6 H (32-36) g/dL RDW Std Deviation 40.1 (36.4-46.3) fL RDW Coeff of Elo 12.4 (11.5-14.5) % Plt Count 341 (130-400) K/uL MPV 9.1 (7.4-10.4) fL Immature Gran % (Auto) 0.3 % Neut % (Auto) 61.1 % Lymph % (Auto) 24.7 % [place] % (Auto) 12.5 % Eos % (Auto) 1.2 % Baso % (Auto) 0.2 % Neut # (Auto) 3.61 (1.4-6.5) K/uL Lymph # (Auto) 1.46 (1.2-3.4) K/uL [place] # (Auto) 0.74 H (0.11-0.59) K/uL Eos # (Auto) 0.07 (0-0.5) K/uL Baso # (Auto) 0.01 (0-0.2) K/uL Immature Gran # (Auto) 0.02 (0.00-0.02) K/uL Sodium 123 L Cancelled Potassium 3.0 L Cancelled Chloride 94 L Cancelled Carbon Dioxide 21 Cancelled Anion Gap 8 Cancelled BUN 2 L Cancelled Creatinine 0.35 L Cancelled Est Cr Clr Drug Dosing Not Reportable Cancelled Est GFR ( Amer) 138.1 Cancelled Est GFR (Non-Af Amer) 119.1 Cancelled BUN/Creatinine Ratio 5.7 L Cancelled Glucose 86 Cancelled Calcium 7.4 L Cancelled Phosphorus Magnesium (1.7-2.4) mg/dl Total Bilirubin 0.7 Cancelled AST 19 Cancelled ALT 8 Cancelled Alkaline Phosphatase 110 H Cancelled Total Protein 5.3 L Cancelled Albumin 2.8 L Cancelled Globulin 2.5 Cancelled Albumin/Globulin Ratio 1.1 Cancelled Lipase 17 Cancelled SARS-CoV-2, RNA, NAAT (NEGATIVE) Supervising Physician Co-Signing Physician Notes Patient seen and examined, chart reviewed, case discussed with Dr. Orellana and I agree with the assessment and plan as above. In brief, patient is a 60yo female with history of pancreatic insufficiency, adrenal insufficiency, COPD, alcohol use disorder presenting with abdominal pain, decreased oral tolerance and medication nonadherence. Patient ill in appearance, disheveled and uncomfortable Skin - erythematous rash on lower abdomen, groin and anterior thighs, tender to palpation HEENT -Dry MM, Neck supple Heart - +S1/S2, regular Lungs - CTA Abd - +BS, soft, tender to palpation without rebound and guarding Ext - Warm, well perfused Labs and images reviewed Assessment/Plan -IVF hydration with LR - electrolyte repletion Mg x 5 gm, KCL x 60mEq, check ionized Ca in AM and replete as needed -Prednisone 20mg po daily - patient has not followed up with Endocrine for her suspected adrenal insufficiency. Per record review has had cosyntropin testing x 2 which suggests adrenal insufficiency -Remainder as above Resident Activity Tracking Resident Involvement: Resident Care Provided Care Provided: [facility]
[2021-10-23] MEDS ORDERED: predniSONE 20 MG TAB PO STA (22:18)
[2021-10-23] MEDS ORDERED: POLYETHYLENE (MIRALAX) 17 GM PACK PO PRN (22:20)
[2021-10-23] MEDS ORDERED: LACTATED RINGER'S 1,000 ML IV SCH (22:30)
[2021-10-23] MEDS: MAGNESIUM SULFATE / D5W 1 GM/100 ML BAG IV SCH (22:41)
[2021-10-23] MEDS: POTASSIUM CHLORIDE / WTR 10 MEQ/100 ML PLCT IV SCH (22:41)
[2021-10-23 22:56] LABS: BUN Creatinine Ratio 6.9 (10-20); Calcium 6.5 mg/dl (8.5-10.1); Creatinine Clr Calc Pharmacy 165.2 ml/min; Est GFR (African American) 146.9 ml/min; Est GFR (Non-African American) 126.7 ml/min; Phosphorus 2.9 mg/dl (2.5-4.9); Potassium 3.1 mmol/L (3.5-5.1)
--- NOTE | 2021-10-23 22:59 | Emergency Department Note ---
History of Present Illness General Chief complaint: Vomiting Stated complaint: NAUSEA, VOMITING, DIARRHEA, AB PAIN Time Seen by Provider: 10/23/21 15:32 Source: patient Mode of arrival: ambulatory Limitations: no limitations History of Present Illness Maximum Pain Intensity: 8 This patient is a 60-year-old female who presents to the emergency department for evaluation of abdominal pain, vomiting and diarrhea for the past 1.5 weeks. Patient states that she feels dehydrated and has not been able to eat or drink m [facility]. She is a poor historian. She states that she feels weak. She does have a history of alcohol use but states that she has not drank for the past 1.5 weeks. Home Medications Medication Instructions Recorded Confirmed Type cholecalciferol (vitamin D3) 50 2,000 mcg PO DAILY 06/19/19 10/23/21 History mcg (2,000 unit) capsule (Vitamin D3) folic acid 1 mg tablet 1 mg PO DAILY 06/19/19 10/23/21 History pravastatin 10 mg tablet 10 mg PO DAILY 06/19/19 10/23/21 History alendronate 70 mg tablet 70 mg PO WK 02/24/21 10/23/21 History ferrous sulfate 325 mg (65 mg 325 mg PO BID 02/24/21 10/23/21 History iron) tablet fluticasone propionate 50 2 spray INTRANASAL DAILY 02/24/21 10/23/21 History mcg/actuation nasal spray,suspension meloxicam 15 mg tablet 15 mg PO DAILY 02/24/21 10/23/21 History pantoprazole 20 mg tablet,delayed 20 mg PO DAILY 02/24/21 10/23/21 History release potassium chloride 10 mEq 20 meq PO BID 02/24/21 10/23/21 History capsule,extended release [id number]-[id number] 1 cap PO AC #90 cap 03/08/21 10/23/21 Rx 36,000-114,000-180,000 unit capsule,delay rel (Creon) fluticasone propionate 110 1 inh INHALATION BID 10/23/21 10/23/21 History mcg/actuation HFA aerosol inhaler (Flovent HFA) ipratropium 20 mcg-albuterol 100 1 puff INHALATION BID 10/23/21 10/23/21 History mcg/actuation mist for inhalation (Combivent Respimat) Allergies Allergy/AdvReac Type Severity Reaction Status Date / Time Penicillins Allergy Intermediate Rash Verified 10/23/21 18:43 Past Med/Surg History Medical History COPD (chronic obstructive pulmonary disease) GERD (gastroesophageal reflux disease) History of alcohol abuse Hyperlipidemia Hypokalemia Hyponatremia Hypotension Osteoporosis Rheumatoid arthritis Surgical History S/P section Family History Other No significant family history Social History Smoking Status: Current every day smoker Cigarettes Per Day: 1-2/day; Second Hand Exposure: Yes; Do You Dip or Chew Tobacco: No; Hx Alcohol Use: Yes Alcohol type: beer Hx Substance Use: No Preferred Language: Nigerian 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 Beliefs That Will Affect Care: None marital status: Life Partner Current Living Situation: Spouse Current Living Situation Comment: lives with boyfriend current occupational status: unemployed Other Information That Helps Us Care for You: No Feels Safe at Home: Yes Safety Concerns: Feels Safe At This Time Assistive Devices: Walker Review of Systems A total of 10 systems reviewed and were otherwise negative Physical Exam Vital Signs Vital Signs - 24 hr 10/23/21 14:58 10/23/21 19:00 Temperature 36.0 C L 36.9 C Temperature Source Temporal Artery Scan Oral Pulse Rate 111 H Pulse Rate [Apical] 89 Respiratory Rate 16 18 Blood Pressure 114/70 Blood Pressure [Right Arm] 99/85 L Blood Pressure Mean 84 Blood Pressure Mean [Right Arm] 89 Pulse Oximetry 99 97 Oxygen Delivery Method Room Air Room Air Sepsis Recent Fever Within 48 Hours No Sepsis New/Unexplained Change in Mental Status N/A Sepsis Action Taken by Nursing No Action Required VITALS: Vitals are noted on the nurse's note and reviewed by myself. GENERAL: This is a 60-year-old female, appears older than stated age, sitting forward on a wheelchair. SKIN: The skin was without rashes. HEAD: Normocephalic atraumatic. EARS: External auditory canals clear, tympanic membranes pearly power without erythema or effusion bilaterally. EYES: Pupils equal round and reactive to light and accommodation. MOUTH: Mucous membranes dry. NECK: Supple without nuchal rigidity. HEART: Regular rate and rhythm without murmurs gallops or rubs. LUNGS: Clear to auscultation bilaterally without wheezes, rales or rhonchi. ABDOMEN: Positive bowel sounds x 4. Soft, no focal tenderness to palpation. NEURO: Patient was alert and oriented to person place and time. Course Administered Medications Acetaminophen (Acetaminophen 325 Mg Tab) 650 mg PO Q4H PRN PRN Reason: Pain or Fever Stop: 11/22/21 22:19 Last Admin: 10/24/21 12:08 Dose: 650 mg Documented by: [id number] Admin: 10/24/21 01:06 Dose: 650 mg Documented by: [id number] Albuterol (Albuterol Hfa 8 Gm Inhaler) 1 puffs INH BID YOUNG Stop: 11/23/21 20:59 Last Admin: 10/24/21 20:22 Dose: 1 puffs Documented by: [id number] Lipase/Protease/Amylase (Pancreaze (Lipase 10,500u) Cap) 1 cap PO AC YOUNG Stop: 11/23/21 07:29 Last Admin: 10/24/21 17:38 Dose: 1 cap Documented by: [id number] Admin: 10/24/21 12:08 Dose: 1 cap Documented by: [id number] Admin: 10/24/21 07:44 Dose: 1 cap Documented by: [id number] Enoxaparin Sodium (Enoxaparin Inj 40 Mg/0.4 Ml Syr) 40 mg SQ HS YOUNG Stop: 11/22/21 22:59 Last Admin: 10/24/21 20:34 Dose: 40 mg Documented by: [id number] Admin: 10/24/21 00:37 Dose: 40 mg Documented by: [id number] Ferrous Sulfate (Ferrous Sulfate 325 Mg Tab) 325 mg PO BID17 YOUNG Stop: 11/23/21 08:59 Last Admin: 10/24/21 17:38 Dose: 325 mg Documented by: [id number] Admin: 10/24/21 08:25 Dose: 325 mg Documented by: [id number] Fluticasone Furoate (Fluticasone Furoate 200mcg 14 Puffs/Inhaler) 1 puffs INH DAILY YOUNG Stop: 11/23/21 08:59 Last Admin: 10/24/21 08:25 Dose: 1 puffs Documented by: [id number] Fluticasone Propionate (Fluticasone Propionate Na Spr 16 Gm Btl) 2 sprays NA DAILY YOUNG Stop: 11/23/21 08:59 Last Admin: 10/24/21 08:26 Dose: 2 sprays Documented by: [id number] Folic Acid (Folic Acid 1 Mg Tab) 1 mg PO DAILY YOUNG Stop: 11/23/21 08:59 Last Admin: 10/24/21 08:26 Dose: 1 mg Documented by: [id number] Ceftriaxone Sodium 1,000 mg/ (Dextrose) 60 mls @ 100 mls/hr IV Q24H [facility]; Protocol Stop: 10/29/21 01:59 Last Infusion: 10/24/21 06:14 Dose: 0 mls/hr Documented by: [id number] Admin: 10/24/21 05:42 Dose: 100 mls/hr Documented by: [id number] Sodium Chloride (Nss 1000ml) 1,000 mls @ 100 mls/hr IV .Q10H [facility] Stop: 11/23/21 07:44 Last Admin: 10/24/21 18:36 Dose: 100 mls/hr Documented by: [id number] Infusion: 10/24/21 18:36 Dose: 100 mls/hr Documented by: [id number] Admin: 10/24/21 09:05 Dose: 100 mls/hr Documented by: [id number] Hydrocortisone Sodium (Succinate 50 mg/ Syringe) 1 mls @ 4 mls/min IV Q6H [facility] Stop: 11/23/21 13:59 Last Admin: 10/24/21 20:33 Dose: 4 mls/min Documented by: [id number] Admin: 10/24/21 14:55 Dose: 4 mls/min Documented by: [id number] Ipratropium Whitehouse (Ipratropium Whitehouse Hfa Inhaler) 1 puffs INH BID [facility] Stop: 11/23/21 18:59 Last Admin: 10/24/21 22:56 Dose: 1 puffs Documented by: [id number] Admin: 10/24/21 20:22 Dose: 1 puffs Documented by: [id number] Meloxicam (Meloxicam 7.5 Mg Tab) 15 mg PO DAILY [facility] Stop: 11/23/21 08:59 Last Admin: 10/24/21 08:26 Dose: 15 mg Documented by: [id number] Nystatin (Nystatin Oint 15 Gm Tube) 1 appln EXT BID [facility] Stop: 11/22/21 22:29 Last Admin: 10/24/21 20:34 Dose: 1 appln Documented by: [id number] Admin: 10/24/21 08:29 Dose: 1 appln Documented by: [id number] Admin: 10/24/21 00:37 Dose: 1 appln Documented by: [id number] Ondansetron HCl (Ondansetron Inj 2 Mg/Ml 2 Ml Vial) 4 mg IV Q6H PRN PRN Reason: Nausea Stop: 11/22/21 22:19 Last Admin: 10/24/21 01:05 Dose: 4 mg Documented by: [id number] Oxycodone HCl (Oxycodone Hcl Ir 5 Mg Tab (Immediate Release)) 5 mg PO Q4H PRN PRN Reason: Pain Stop: 11/07/21 16:26 Last Admin: 10/24/21 20:40 Dose: 5 mg Documented by: [id number] Pantoprazole Sodium (Pantoprazole 40 Mg Tab) 40 mg PO DAILY YOUNG Stop: 11/23/21 08:59 Last Admin: 10/24/21 08:28 Dose: 40 mg Documented by: [id number] Potassium Chloride (Potassium Chloride Crtab 20 Meq Tabcr) 20 meq PO BID17 [facility] Stop: 11/23/21 08:59 Last Admin: 10/24/21 17:38 Dose: 20 meq Documented by: [id number] Admin: 10/24/21 08:29 Dose: 20 meq Documented by: [id number] Pravastatin Sodium (Pravastatin Sod 10 Mg Tab) 10 mg PO DAILY YOUNG Stop: 11/23/21 08:59 Last Admin: 10/24/21 08:29 Dose: 10 mg Documented by: [id number] Vitamin D (Cholecalciferol 1,000 Units 25 Mcg Tab) 2,000 units PO DAILY YOUNG Stop: 11/23/21 08:59 Last Admin: 10/24/21 08:25 Dose: 2,000 units Documented by: [id number] Discontinued Medications Albuterol (Albuterol Hfa 8 Gm Inhaler (Combivent Respimat P&T Subs)) 1 puffs INH QIDR [facility] Stop: 11/23/21 06:59 Last Admin: 10/24/21 15:18 Dose: 1 puffs Documented by: [id number] Admin: 10/24/21 11:18 Dose: 1 puffs Documented by: [id number] Admin: 10/24/21 08:38 Dose: 1 puffs Documented by: [id number] Sodium Chloride (Nss 1000ml) 1,000 mls @ 999 mls/hr IV .Q1H1M ONE Stop: 10/23/21 18:13 Last Infusion: 10/23/21 20:07 Dose: 0 mls/hr Documented by: [id number] Infusion: 10/23/21 20:06 Dose: 0 mls/hr Documented by: [id number] Admin: 10/23/21 18:35 Dose: 999 mls/hr Documented by: [id number] Sodium Chloride (Nss 1000ml) 1,000 mls @ 999 mls/hr IV .Q1H1M ONE Stop: 10/23/21 19:52 Last Infusion: 10/23/21 20:06 Dose: 0 mls/hr Documented by: [id number] Admin: 10/23/21 19:01 Dose: 999 mls/hr Documented by: [id number] Potassium Chloride (K Bennett / Wtr) 10 meq in 100 mls @ 100 mls/hr IV ONE ONE; Protocol Stop: 10/23/21 19:51 Last Infusion: 10/23/21 20:07 Dose: 0 mls/hr Documented by: [id number] Admin: 10/23/21 19:00 Dose: 100 mls/hr Documented by: [id number] Magnesium Sulfate/Dextrose (Magnesium Sulfate / D5w) 1 gm in 100 mls @ 100 mls/hr IV NOW STA Stop: 10/23/21 20:40 Last Infusion: 10/23/21 21:22 Dose: 0 mls/hr Documented by: [id number] Admin: 10/23/21 20:06 Dose: 100 mls/hr Documented by: [id number] Lactated Ringer's (Lr) 1,000 mls @ 100 mls/hr IV .Q10H YOUNG Stop: 10/25/21 04:29 Last Infusion: 10/24/21 07:40 Dose: 0 mls/hr Documented by: [id number] Admin: 10/23/21 22:40 Dose: 100 mls/hr Documented by: [id number] Magnesium Sulfate/Dextrose (Magnesium Sulfate / D5w) 1 gm in 100 mls @ 50 mls/hr IV Q2H YOUNG Stop: 10/24/21 08:29 Last Infusion: 10/24/21 08:30 Dose: 0 mls/hr Documented by: [id number] Admin: 10/24/21 06:28 Dose: 50 mls/hr Documented by: [id number] Infusion: 10/24/21 06:27 Dose: 0 mls/hr Documented by: [id number] Admin: 10/24/21 04:31 Dose: 50 mls/hr Documented by: [id number] Infusion: 10/24/21 04:31 Dose: 0 mls/hr Documented by: [id number] Admin: 10/24/21 02:31 Dose: 50 mls/hr Documented by: [id number] Infusion: 10/24/21 02:30 Dose: 0 mls/hr Documented by: [id number] Admin: 10/24/21 00:33 Dose: 50 mls/hr Documented by: [id number] Infusion: 10/24/21 00:25 Dose: 0 mls/hr Documented by: [id number] Admin: 10/23/21 22:41 Dose: 50 mls/hr Documented by: [id number] Potassium Chloride (K Bennett / Wtr) 10 meq in 100 mls @ 100 mls/hr IV Q1H YOUNG; Protocol Stop: 10/24/21 04:29 Last Infusion: 10/24/21 05:34 Dose: 0 mls/hr Documented by: [id number] Admin: 10/24/21 04:28 Dose: 100 mls/hr Documented by: [id number] Infusion: 10/24/21 04:27 Dose: 0 mls/hr Documented by: [id number] Admin: 10/24/21 03:26 Dose: 100 mls/hr Documented by: [id number] Infusion: 10/24/21 03:26 Dose: 100 mls/hr Documented by: [id number] Admin: 10/24/21 02:31 Dose: 100 mls/hr Documented by: [id number] Infusion: 10/24/21 02:30 Dose: 0 mls/hr Documented by: [id number] Admin: 10/24/21 01:35 Dose: 100 mls/hr Documented by: [id number] Infusion: 10/24/21 01:35 Dose: 100 mls/hr Documented by: [id number] Admin: 10/24/21 00:35 Dose: 100 mls/hr Documented by: [id number] Infusion: 10/24/21 00:27 Dose: 0 mls/hr Documented by: [id number] Admin: 10/23/21 22:41 Dose: 100 mls/hr Documented by: [id number] Hydrocortisone Sodium (Succinate 100 mg/ Syringe) 2 mls @ 4 mls/min IV TODAY@0800 ONE Stop: 10/24/21 08:01 Last Admin: 10/24/21 08:24 Dose: 4 mls/min Documented by: [id number] Ioversol (Optiray 320 100ml) 93 ml IV ONCE ONE Stop: 10/23/21 19:46 Last Admin: 10/23/21 19:46 Dose: 93 ml Documented by: [id number] Ipratropium Whitehouse (Ipratropium Hfa Inhaler (Combivent Respimat P&T Subs)) 1 puffs INH QIDR YOUNG Stop: 11/23/21 06:59 Last Admin: 10/24/21 15:18 Dose: 1 puffs Documented by: [id number] Admin: 10/24/21 11:18 Dose: 1 puffs Documented by: [id number] Admin: 10/24/21 08:38 Dose: 1 puffs Documented by: [id number] Ondansetron HCl (Ondansetron Inj 2 Mg/Ml 2 Ml Vial) 4 mg IV NOW STA Stop: 10/23/21 15:01 Last Admin: 10/23/21 18:38 Dose: 4 mg Documented by: [id number] Ondansetron HCl (Ondansetron Inj 2 Mg/Ml 2 Ml Vial) Confirm Administered Dose 4 mg .ROUTE .STK-MED ONE Stop: 10/23/21 18:39 Last Admin: 10/23/21 18:39 Dose: Not Given Documented by: [id number] Prednisone (Prednisone 20 Mg Tab) 20 mg PO NOW STA Stop: 10/23/21 22:19 Last Admin: 10/23/21 22:40 Dose: 20 mg Documented by: [id number] Medical Decision Making Differential Diagnosis Gastroenteritis, food borne illness, infections, appendicitis, diverticulitis, inflammatory bowel disease, obstruction, GI bleed, biliary pathology, volvulus, as well as other pathologies. Home Medications Current Medication List: was personally reviewed by me Laboratory Data Attestation: I reviewed the patient's lab results. Result diagrams: 10/23/21 15:55 10/24/21 05:36 Lab Results 10/23/21 10/23/21 10/23/21 Range/Units 15:55 15:55 17:46 WBC 5.91 (4.8-10.8) K/uL RBC 3.25 L (4.2-5.4) M/uL Hgb 10.6 L (12.0-16.0) g/dL Hct 29.0 L (37-47) % MCV 89.2 (80-100) fL MCH 32.6 (25-34) pg MCHC 36.6 H (32-36) g/dL RDW Std Deviation 40.1 (36.4-46.3) fL RDW Coeff of Elo 12.4 (11.5-14.5) % Plt Count 341 (130-400) K/uL MPV 9.1 (7.4-10.4) fL Immature Gran % (Auto) 0.3 % Neut % (Auto) 61.1 % Lymph % (Auto) 24.7 % Kidder % (Auto) 12.5 % Eos % (Auto) 1.2 % Baso % (Auto) 0.2 % Neut # (Auto) 3.61 (1.4-6.5) K/uL Lymph # (Auto) 1.46 (1.2-3.4) K/uL Kidder # (Auto) 0.74 H (0.11-0.59) K/uL Eos # (Auto) 0.07 (0-0.5) K/uL Baso # (Auto) 0.01 (0-0.2) K/uL Immature Gran # (Auto) 0.02 (0.00-0.02) K/uL Sodium Cancelled 123 L Potassium Cancelled 3.0 L Chloride Cancelled 94 L Carbon Dioxide Cancelled 21 Anion Gap Cancelled 8 BUN Cancelled 2 L Creatinine Cancelled 0.35 L Est Cr Clr Drug Dosing Cancelled Not Reportable Est GFR ( Amer) Cancelled 138.1 Est GFR (Non-Af Amer) Cancelled 119.1 BUN/Creatinine Ratio Cancelled 5.7 L Glucose Cancelled 86 Calcium Cancelled 7.4 L Phosphorus (2.5-4.9) mg/dl Magnesium (1.7-2.4) mg/dl Total Bilirubin Cancelled 0.7 AST Cancelled 19 ALT Cancelled 8 Alkaline Phosphatase Cancelled 110 H Total Protein Cancelled 5.3 L Albumin Cancelled 2.8 L Globulin Cancelled 2.5 Albumin/Globulin Ratio Cancelled 1.1 Lipase Cancelled 17 SARS-CoV-2, RNA, NAAT (NEGATIVE) 10/23/21 10/23/21 10/23/21 Range/Units 17:46 21:30 22:07 WBC (4.8-10.8) K/uL RBC (4.2-5.4) M/uL Hgb (12.0-16.0) g/dL Hct (37-47) % MCV (80-100) fL MCH (25-34) pg MCHC (32-36) g/dL RDW Std Deviation (36.4-46.3) fL RDW Coeff of Elo (11.5-14.5) % Plt Count (130-400) K/uL MPV (7.4-10.4) fL Immature Gran % (Auto) % Neut % (Auto) % Lymph % (Auto) % Kidder % (Auto) % Eos % (Auto) % Baso % (Auto) % Neut # (Auto) (1.4-6.5) K/uL Lymph # (Auto) (1.2-3.4) K/uL Kidder # (Auto) (0.11-0.59) K/uL Eos # (Auto) (0-0.5) K/uL Baso # (Auto) (0-0.2) K/uL Immature Gran # (Auto) (0.00-0.02) K/uL Sodium 124 L Potassium 3.1 L Chloride 98 Carbon Dioxide 20 L Anion Gap 6 BUN 2 L Creatinine 0.29 L Est Cr Clr Drug Dosing 165.2 Est GFR ( Amer) 146.9 Est GFR (Non-Af Amer) 126.7 BUN/Creatinine Ratio 6.9 L Glucose 83 Calcium 6.5 L Phosphorus 2.9 (2.5-4.9) mg/dl Magnesium 1.0 L (1.7-2.4) mg/dl Total Bilirubin AST ALT Alkaline Phosphatase Total Protein Albumin Globulin Albumin/Globulin Ratio Lipase SARS-CoV-2, RNA, NAAT NEGATIVE (NEGATIVE) Imaging Data Attestation: I personally reviewed and interpreted this imaging study as follows: Radiologist's Impression: Abdomen/Pelvis CT 10/23/21 16:30 CT OF THE ABDOMEN AND PELVIS WITH CONTRAST CLINICAL HISTORY: Abdominal pain, vomiting, diarrhe.a COMPARISON STUDY: CT of the abdomen and pelvis February 24, 2021. TECHNIQUE: Following IV administration of 93 mL of Optiray, axial images of the abdomen and pelvis were obtained from the lung bases to the proximal femurs. Images were reviewed in the axial, sagittal, and coronal planes. IV contrast was administered without complication. Automated exposure control was utilized for the study. A dose lowering technique was utilized adhering to the principles of ALARA. CT DOSE: 242.21 mGy.cm FINDINGS: No pneumatosis, free air or portal venous gas is present. Diffuse muscular atrophy is noted. The liver, spleen, adrenal glands, kidneys and pancreas are unremarkable. There are gallstones within the gallbladder without evidence for acute cholecystitis. There is no biliary or pancreatic ductal dilatation. Caliber and wall thickness of small and large bowel are normal. Appendix is normal. No evidence for a bowel obstruction. No lymphadenopathy. No fluid collection to suggest an abscess is present. Several old sacral fractures are noted. There are healing right pubic ring fractures. There is an old fracture of the greater trochanter of the right femur. This was present on CT of February 24, 2021. Old left pubic ring fractures are present. These have healed. There are several old lumbar spine transverse process and rib fractures. No acute fractures are identified within visualized skeletal structures. IMPRESSION: 1. No acute process within the abdomen or pelvis. 2. Cholelithiasis. No evidence for acute cholecystitis. 3. No bowel obstruction. No bowel wall thickening. 4. Healing right pubic ring fractures. Numerous old fractures within the pelvis, lumbar spine and ribs, as described above. ACT 112: Negative or not required by law. Electronically signed by: Gigi Dia M.D. 10/23/2021 8:21 PM MDM Narrative The patient is a 60-year-old female who presents today complaining of vomiting, diarrhea, and abdominal pain. Labs revealed no leukocytosis. Patient is mildly anemic which is chronic for her. Patient found to have hyponatremia, hypokalemia, and hypomagnesemia. She was given IV NSS, K rider, and magnesium for repletion. The case was discussed with the hospitalist service, who agreed to evaluate the patient for further care. Impression & Plan Hyponatremia, Hypokalemia, Hypomagnesemia Discharge Plan Visit Data Chief Complaint: Vomiting Stated Complaint: NAUSEA, VOMITING, DIARRHEA, AB PAIN ED Provider: Terrance Saleem ED Midlevel Provider: Sharonda Robertson Discharge Problem: Hyponatremia, Hypokalemia, Hypomagnesemia Patient Disposition: Admitted As Inpatient Discharge Instructions Interventions: ED Discharge Assessment Last Done: 10/23/21 23:14
[2021-10-24] MEDS: MAGNESIUM SULFATE / D5W 1 GM/100 ML BAG IV SCH ×4 (00:33→06:28)
[2021-10-24] MEDS: POTASSIUM CHLORIDE / WTR 10 MEQ/100 ML PLCT IV SCH ×5 (00:35→04:28)
[2021-10-24] MEDS: ENOXAPARIN INJ 40 MG/0.4 ML SYR SQ SCH ×2 (00:37→20:34)
[2021-10-24] MEDS: NYSTATIN OINT 15 GM TUBE EXT SCH ×3 (00:37→20:34)
[2021-10-24 00:45] LABS: Appearance Urine Cloudy (Clear); Bacteria Urine Automated 4+ (Negative); Bilirubin Urine Negative (Negative); Blood Urine 1+ (Negative); Color Urine Yellow; Epithelial Cell Urine Auto >30 /lpf (0-5); Glucose Urine UA Negative (Negative); Ketones Urine Trace (Negative); Leukocyte Esterase Urine 1+ (Negative); Nitrite Urine Positive (Negative); Protein Urine Negative (Negative); Specific Gravity Urine > 1.045 (1.000-1.030); Urobilinogen Urine Negative (Negative); WBC Urine Automated >30 /hpf (0-5)
[2021-10-24 01:01] LABS: RBC Urine Automated 0-4 /hpf (0-4)
[2021-10-24] MEDS: ONDANSETRON INJ 2 MG/ML 2 ML VIAL IV PRN (01:05)
[2021-10-24] MEDS: ACETAMINOPHEN 325 MG TAB PO PRN ×2 (01:06→12:08)
--- NOTE | 2021-10-24 02:01 | Communication Note ---
Date of Service: October 24, 2021 UA positive for nitrites and bacteria; also is cloudy and malodorous. Patient denies recent urinary symptoms but did present here with N/V and abdominal pain. Previous urine cx in 03/2021 growing Klebsiella (largely faulkner-sensitive). - start CTX 1g IV daily - adjust as necessary pending urine cx results
--- NOTE | 2021-10-24 02:02 | Billing Data ---
Date of Service October 23, 2021 Coding Level of Care Code 65128 Initial Inpt Care Lvl 3
[2021-10-24] MEDS: cefTRIAXone SODIUM 1,000 MG in DEXTROSE 5% 50 ML IV SCH (05:42)
[2021-10-24 06:31] LABS: Alanine Aminotransferase 7 U/L (7-52); Albumin Level 2.4 gm/dl (3.4-5.0); Alkaline Phosphatase 101 U/L (34-104); Anion Gap 8 (3-11); Aspartate Aminotransferase 16 U/L (13-39); Bilirubin,Total 0.6 mg/dl (0.2-1.0); Blood Urea Nitrogen < 2 mg/dl (6-23); Calcium 7.1 mg/dl (8.5-10.1); Carbon Dioxide 19 mmol/L (21-32); Chloride 97 mmol/L (98-107); Creatinine Clr Calc Pharmacy 154.5 ml/min; Est GFR (African American) 143.7 ml/min; Globulin 2.4 gm/dl (2.5-4.0); Glucose 120 mg/dl (70-99(Fasting)); Magnesium 2.2 mg/dl (1.7-2.4); Phosphorus 2.8 mg/dl (2.5-4.9); Potassium 4.1 mmol/L (3.5-5.1); Sodium 124 mmol/L (136-145); Total Protein 4.8 gm/dl (6.0-8.3)
[2021-10-24] MEDS: PANCREAZE (LIPASE 10,500U) CAP PO SCH ×3 (07:44→17:38)
[2021-10-24] MEDS ORDERED: HYDROCORTISONE SOD 100 MG in SYRINGE 0 ML IV ONE (08:00)
[2021-10-24] MEDS: FERROUS SULFATE 325 MG TAB PO SCH ×2 (08:25→17:38)
[2021-10-24] MEDS: FLUTICASONE FUROATE 200MCG 14 PUFFS/INHALER INH SCH (08:25)
[2021-10-24] MEDS: CHOLECALCIFEROL 1,000 UNITS 25 MCG TAB PO SCH (08:25)
[2021-10-24] MEDS: FOLIC ACID 1 MG TAB PO SCH (08:26)
[2021-10-24] MEDS: FLUTICASONE PROPIONATE NA SPR 16 GM BTL SCH (08:26)
[2021-10-24] MEDS: PANTOprazole 40 MG TAB PO SCH (08:28)
[2021-10-24] MEDS: PRAVASTATIN SOD 10 MG TAB PO SCH (08:29)
[2021-10-24] MEDS: POTASSIUM CHLORIDE CRTAB 20 MEQ TABCR PO SCH ×2 (08:29→17:38)
[2021-10-24] MEDS: Ipratropium HFA Inhaler (Combivent Respimat P&T Subs) INH SCH ×3 (08:38→15:18)
[2021-10-24] MEDS: Albuterol HFA 8 GM Inhaler (Combivent Respimat P&T Subs) INH SCH ×3 (08:38→15:18)
[2021-10-24] MEDS ORDERED: MELOXICAM 7.5 MG TAB PO SCH (09:00)
[2021-10-24] MEDS ORDERED: IPRATROPIUM BROMIDE/ALBUTEROL respimat INH INH SCH (09:00)
[2021-10-24] MEDS ORDERED: predniSONE 20 MG TAB PO SCH (09:00)
[2021-10-24] MEDS: SODIUM CHLORIDE 0.9% 1000ML 1,000 ML IV SCH ×2 (09:05→18:36)
[2021-10-24] MEDS: HYDROCORTISONE SOD 50 MG in SYRINGE 0 ML IV SCH ×2 (14:55→20:33)
--- NOTE | 2021-10-24 15:36 | Hospitalist Progress Note ---
Date of Service October 24, 2021 Assessment & Plan (1) Abdominal pain with vomiting: Plan: Suspect secondary to UTI +/- adrenal insufficiency Agree with ceftriaxone started last night Follow up urine culture Add blood culture and procalcitonin but notably taken after start of antibiotics. No acute etiology on Possible due to adrenal insufficiency as not taking her medications therefore started on stress dose hydrocortisone. (2) UTI (urinary tract infection): Plan: Suspected given nausea, vomiting, generalized aches and pains. Procalcitonin elevated. Blood cultures taken after antibiotics started Follow up blood and urine cultures. Consider prolonged course for pyelonephritis given "pain everywhere" including CVA tenderness if procalcitonin remains significantly elevated. Continue ceftriaxone 1g IV daily (3) Adrenal insufficiency: Plan: Given hypotension will give stress dose steroids. Stop prednisone. Hydrocortisone 50mg .q6h (4) Hypotension: Plan: IVF and hydrocortisone as above Patient with normal mentation with systolic BP in 90s (5) Hyponatremia: Plan: Suspect nutritional Switched LR to NSS Acute on chronic No urine/serum osm taken but will defer unles not improving (6) Osteoporosis: Plan: -continue alendronate (7) History of alcohol abuse: (8) GERD (gastroesophageal reflux disease): Plan: -continue pantoprazole (9) Hyperlipidemia: Plan: -continue pravastatin (10) COPD (chronic obstructive pulmonary disease): Plan: -continue home flovent, combivent, fluticasone (11) Rheumatoid arthritis: Plan: -continue meloxicam (12) Anemia: Plan: At baseline. Periodically will monitor (13) Hypomagnesemia: Plan: Resolved with supplementation. Continue to monitor. (14) Hypokalemia: Plan: Resolved with supplementation. Continue to monitor daily for potential need to continue this. ?due to adrenal insufficiency. (15) Frequent falls: Plan: PT/OT evals (16) Tinea cruris: Plan: Continue nystatin cream (17) Pancreatic insufficiency: Plan: -continue home creon -normal lipase, CT abd no pancreatitis Plan: FENa: full liquid diet, advance as tolerated Code Status: conditional, resuscitation, DNI DVT PPX: lovenox 40mg daily PT/OT: ordered Dispo: med/tele, admit inpt Admission and Anticipated Discharge Date Admission Date: October 23, 2021 Subjective Reports pain everywhere, cannot specify to joints or muscles, requesting pain medication. No specific urinary symptoms but she also just feels ill. No further nausea and vomiting since admission. Tolerating small amount of liquids only. Review of Systems Review of Systems: All systems reviewed & are unremarkable except as noted in Subjective Physical Exam Constitutional: well developed, + acute distress ("pain everywhere") and + frail appearing; + not well nourished Eyes: PERRL, conjunctivae normal, anicteric sclerae Respiratory: normal respiratory effort, lungs clear to auscultation Auscultation: no crackles, no rhonchi and no wheezes Cardiovascular: Rate/Rhythm: regular rate and regular rhythm Heart Sounds: no murmur Extremities: normal capillary refill; no calf tenderness and no pedal edema Gastrointestinal (Abdomen): Inspection/Auscultation: normal bowel sounds Percussion/Palpation: abdomen soft; abdomen nontender, no guarding and abdomen not rigid Musculoskeletal: no cyanosis or clubbing, extremities motor strength 5/5 Skin: + erythema (groin) Neurologic: moves all extremities and awake; not confused Psychiatric: A+Ox3, euthymic affect Genitourinary: + CVA tenderness (bilaterally equal) Results & Data Results & Data ([facility]) Vital Signs (Past 12 Hours) Vital Signs Temp Pulse Pulse Pulse Resp BP Pulse Ox 10/24/21 15:20 86 18 95 10/24/21 15:15 37.0 C 95 H 20 99/63 L 93 10/24/21 11:23 36.8 C 82 20 107/71 94 10/24/21 11:19 82 18 93 10/24/21 08:39 78 16 94 10/24/21 07:53 36.9 C 84 20 90/53 L 94 10/24/21 07:30 87 PG Care Time/CCT Total # of Minutes Spent Total Time Spent with Patient: Total time spent is greater than 50% in coordination of care (as documented) at patient's floor/unit and/or counseling patient: Coding Level of Care Code 70274 Subseq Hosp Care Lvl 3 Diagnoses Abdominal pain with vomiting R10.9; R11.10 Hyponatremia E87.1 Osteoporosis M81.0 History of alcohol abuse F10.11 GERD (gastroesophageal reflux disease) K21.9 Hyperlipidemia E78.5 COPD (chronic obstructive pulmonary disease) J44.9 Rheumatoid arthritis M06.9 Adrenal insufficiency E27.40 Hypotension I95.9 Anemia D64.9 Hypomagnesemia E83.42 Hypokalemia E87.6 Frequent falls R29.6 Tinea cruris B35.6 Pancreatic insufficiency K86.89 UTI (urinary tract infection) N39.0
[2021-10-24] MEDS: ALBUTEROL HFA 8 GM INHALER INH SCH (20:22)
[2021-10-24] MEDS: IPRATROPIUM BROMIDE HFA INHALER INH SCH ×2 (20:22→22:56)
[2021-10-24] MEDS: oxyCODONE HCL IR 5 MG TAB (IMMEDIATE RELEASE) PO PRN (20:40)
[2021-10-25] MEDS: HYDROCORTISONE SOD 50 MG in SYRINGE 0 ML IV SCH ×3 (02:40→10:26)
[2021-10-25] MEDS: SODIUM CHLORIDE 0.9% 1000ML 1,000 ML IV SCH (04:45)
[2021-10-25] MEDS: cefTRIAXone SODIUM 1,000 MG in DEXTROSE 5% 50 ML IV SCH (05:41)
[2021-10-25 06:18] LABS: Alanine Aminotransferase 7 U/L (7-52); Albumin Level 2.5 gm/dl (3.4-5.0); Alkaline Phosphatase 91 U/L (34-104); Anion Gap 4 (3-11); Aspartate Aminotransferase 12 U/L (13-39); BUN Creatinine Ratio 8.7 (10-20); Bilirubin,Total 0.5 mg/dl (0.2-1.0); Blood Urea Nitrogen 2 mg/dl (6-23); Calcium 7.5 mg/dl (8.5-10.1); Carbon Dioxide 20 mmol/L (21-32); Chloride 102 mmol/L (98-107); Creatinine Clr Calc Pharmacy 230.6 ml/min; Est GFR (African American) > 150.0 ml/min; Est GFR (Non-African American) 136.8 ml/min; Globulin 2.4 gm/dl (2.5-4.0); Glucose 140 mg/dl (70-99(Fasting)); Magnesium 1.8 mg/dl (1.7-2.4); Phosphorus 2.4 mg/dl (2.5-4.9); Potassium 4.3 mmol/L (3.5-5.1); Sodium 126 mmol/L (136-145); Total Protein 4.9 gm/dl (6.0-8.3)
[2021-10-25] MEDS: ALBUTEROL HFA 8 GM INHALER INH SCH ×2 (07:18→20:07)
[2021-10-25] MEDS: IPRATROPIUM BROMIDE HFA INHALER INH SCH ×2 (07:19→20:07)
[2021-10-25] MEDS: PANCREAZE (LIPASE 10,500U) CAP PO SCH ×3 (08:32→17:17)
[2021-10-25] MEDS: CHOLECALCIFEROL 1,000 UNITS 25 MCG TAB PO SCH (08:33)
[2021-10-25] MEDS: FLUTICASONE FUROATE 200MCG 14 PUFFS/INHALER INH SCH (08:33)
[2021-10-25] MEDS: FLUTICASONE PROPIONATE NA SPR 16 GM BTL SCH (08:33)
[2021-10-25] MEDS: FOLIC ACID 1 MG TAB PO SCH (08:33)
[2021-10-25] MEDS: PANTOprazole 40 MG TAB PO SCH (08:33)
[2021-10-25] MEDS: PRAVASTATIN SOD 10 MG TAB PO SCH (08:33)
[2021-10-25] MEDS: FERROUS SULFATE 325 MG TAB PO SCH ×2 (08:33→17:17)
[2021-10-25] MEDS: NYSTATIN OINT 15 GM TUBE EXT SCH ×2 (08:34→22:37)
--- NOTE | 2021-10-25 12:26 | Hospitalist Progress Note ---
Date of Service October 25, 2021 Assessment & Plan (1) Abdominal pain with vomiting: Plan: Suspect secondary to UTI +/- adrenal insufficiency. - Continue ceftriaxone - Follow up urine culture -> Growing Gram(-) bacilli. - Blood cultures negative. - Possible due to adrenal insufficiency as not taking her medications therefore started on stress dose hydrocortisone. (2) Hyponatremia: Plan: Suspect nutritional. Switched LR to NSS. Acute on chronic. - Order urine/serum osm (3) Adrenal insufficiency: Plan: Given hypotension will give stress dose steroids. - Stopped prednisone on admission. - Hydrocortisone 50mg .q6h on 10/23 -> Will switch to more physiologic dosing hydrocortisone 20 mg QAM & 10 mg at 3pm. (4) UTI (urinary tract infection): Plan: Suspected given nausea, vomiting, generalized aches and pains. - Continue ceftriaxone 1g IV daily x 3 days. -> Admitting provider felt maybe there was pyelonephritis due to CVA tenderness, but pain was everywhere, plus she has numerous old fractures, including on the ribs, so I think this is not a very specific way to test for pyelonephritis. (5) Hypotension: Plan: IVF and hydrocortisone as above. Patient with normal mentation with systolic BP in 90s. (6) Osteoporosis: Plan: - Hold alendronate while inpatient (7) History of alcohol abuse: Plan: Noted. (8) GERD (gastroesophageal reflux disease): Plan: - Continue pantoprazole (9) Hyperlipidemia: Plan: - Continue pravastatin (10) COPD (chronic obstructive pulmonary disease): Plan: - Continue home Flovent, Combivent, fluticasone (11) Rheumatoid arthritis: Plan: - Hold meloxicam (12) Anemia: Plan: At baseline. Periodically will monitor. (13) Hypomagnesemia: Plan: Resolved with supplementation. - Continue to monitor. (14) Hypokalemia: Plan: Resolved with supplementation. Continue to monitor daily for potential need to continue this. ?due to adrenal insufficiency. (15) Frequent falls: Plan: PT/OT evals (16) Tinea cruris: Plan: Continue nystatin cream (17) Pancreatic insufficiency: Plan: -continue home creon -normal lipase, CT abd no pancreatitis Plan: Code Status: conditional, resuscitation, DNI DVT PPX: Lovenox 40mg daily Admission and Anticipated Discharge Date Admission Date: October 23, 2021 Subjective Still with pain all over. Physical Exam Constitutional: + frail appearing Eyes: EOM intact bilaterally; no conjunctival abnormality ENMT: external ear and nose normal, oropharynx normal Neck: trachea midline, no thyromegaly normal visual inspection Respiratory: normal respiratory effort, lungs clear to auscultation no respiratory distress Cardiovascular: RRR, no murmur, no edema Gastrointestinal (Abdomen): Inspection/Auscultation: abdomen normal to inspection; abdomen not distended Musculoskeletal: no cyanosis or clubbing, extremities motor strength 5/5 Skin: no rashes, warm and dry Neurologic: moves all extremities and awake Psychiatric: Orientation: alert, oriented to person and cooperative Results & Data Results & Data ([facility]) Vital Signs (Past 12 Hours) Vital Signs Temp Pulse Pulse Resp BP Pulse Ox 10/25/21 11:27 36.7 C 81 17 99/63 L 98 10/25/21 07:59 82 10/25/21 07:20 81 16 95 10/25/21 02:50 36.8 C 91 H 18 92/57 L 92 PG Care Time/CCT Total # of Minutes Spent Total Time Spent with Patient: Total time spent is greater than 50% in coordination of care (as documented) at patient's floor/unit and/or counseling patient: Coding Level of Care Code 96364 Subseq Hosp Care Lvl 3 Diagnoses Abdominal pain with vomiting R10.9; R11.10 UTI (urinary tract infection) N39.0 Adrenal insufficiency E27.40 Hypotension I95.9 Hyponatremia E87.1 Osteoporosis M81.0 History of alcohol abuse F10.11 GERD (gastroesophageal reflux disease) K21.9 Hyperlipidemia E78.5 COPD (chronic obstructive pulmonary disease) J44.9 Rheumatoid arthritis M06.9 Anemia D64.9 Hypomagnesemia E83.42 Hypokalemia E87.6 Frequent falls R29.6 Tinea cruris B35.6 Pancreatic insufficiency K86.89
[2021-10-25 15:26] LABS: BUN Creatinine Ratio 4.9 (10-20); Calcium 7.4 mg/dl (8.5-10.1); Creatinine Clr Calc Pharmacy 129.3 ml/min; Est GFR (African American) 131.1 ml/min; Est GFR (Non-African American) 113.1 ml/min
[2021-10-25] MEDS: HYDROCORTISONE 10 MG TAB PO SCH (15:31)
[2021-10-25] MEDS: POT PHOSPHATE MONOBASIC W/ SOD TAB PO SCH ×2 (17:17→20:00)
[2021-10-25] MEDS: ENOXAPARIN INJ 40 MG/0.4 ML SYR SQ SCH (19:59)
[2021-10-25] MEDS: oxyCODONE HCL IR 5 MG TAB (IMMEDIATE RELEASE) PO PRN (21:22)
[2021-10-26] MEDS: cefTRIAXone SODIUM 1,000 MG in DEXTROSE 5% 50 ML IV SCH (05:26)
[2021-10-26 06:29] LABS: Hematocrit (blood only) 22.7 % (37-47); Mean Corpuscular Hemoglobin 32.4 pg (25-34); Mean Corpuscular Hgb Conc 35.2 g/dL (32-36); Mean Corpuscular Volume 91.9 fL (80-100); Mean Platelet Volume 8.9 fL (7.4-10.4); Platelet Count 333 K/uL (130-400); RDW Standard Deviation 43.8 fL (36.4-46.3); Red Blood Count 2.47 M/uL (4.2-5.4); White Blood Count 4.21 K/uL (4.8-10.8)
[2021-10-26 07:12] LABS: Albumin Globulin Ratio 1.1 (0.9-2); Albumin Level 2.3 gm/dl (3.4-5.0); BUN Creatinine Ratio 9.8 (10-20); Bilirubin,Total 0.4 mg/dl (0.2-1.0); Calcium 7.3 mg/dl (8.5-10.1); Creatinine Clr Calc Pharmacy 127.9 ml/min; Est GFR (African American) 131.1 ml/min; Est GFR (Non-African American) 113.1 ml/min; Globulin 2.1 gm/dl (2.5-4.0); Magnesium 1.6 mg/dl (1.7-2.4); Potassium 3.7 mmol/L (3.5-5.1); Total Protein 4.4 gm/dl (6.0-8.3)
[2021-10-26] MEDS: ALBUTEROL HFA 8 GM INHALER INH SCH ×2 (07:38→19:23)
[2021-10-26] MEDS: IPRATROPIUM BROMIDE HFA INHALER INH SCH ×2 (07:39→19:24)
[2021-10-26] MEDS: PANCREAZE (LIPASE 10,500U) CAP PO SCH ×3 (07:42→16:51)
[2021-10-26] MEDS: HYDROCORTISONE 10 MG TAB PO SCH ×2 (09:27→15:17)
[2021-10-26] MEDS: FERROUS SULFATE 325 MG TAB PO SCH ×2 (09:28→16:51)
[2021-10-26] MEDS: CHOLECALCIFEROL 1,000 UNITS 25 MCG TAB PO SCH (09:28)
[2021-10-26] MEDS: FLUTICASONE PROPIONATE NA SPR 16 GM BTL SCH (09:28)
[2021-10-26] MEDS: FOLIC ACID 1 MG TAB PO SCH (09:28)
[2021-10-26] MEDS: PANTOprazole 40 MG TAB PO SCH (09:29)
[2021-10-26] MEDS: NYSTATIN OINT 15 GM TUBE EXT SCH ×2 (09:29→20:36)
[2021-10-26] MEDS: FLUTICASONE FUROATE 200MCG 14 PUFFS/INHALER INH SCH (09:29)
[2021-10-26] MEDS: POT PHOSPHATE MONOBASIC W/ SOD TAB PO SCH ×2 (09:31→13:33)
[2021-10-26] MEDS: PRAVASTATIN SOD 10 MG TAB PO SCH (09:32)
[2021-10-26] MEDS: diphenhydrAMINE Capsule 25 MG CAP PO PRN ×2 (10:55→16:55)
[2021-10-26] MEDS: oxyCODONE HCL IR 5 MG TAB (IMMEDIATE RELEASE) PO PRN ×2 (13:45→20:56)
--- NOTE | 2021-10-26 16:52 | Hospitalist Progress Note ---
Date of Service October 26, 2021 Assessment & Plan (1) Abdominal pain with vomiting: Plan: Resolved Suspect secondary to UTI +/- adrenal insufficiency. -Klebsiella grew in the urine culture sensitive to cefazolin, stop Rocephin, started on Keflex (2) Hyponatremia: Plan: Suspect nutritional. Switched LR to NSS. Acute on chronic. - Order urine/serum osm (3) Adrenal insufficiency: Plan: Given hypotension initially started on stress dose - Stopped prednisone on admission. - hydrocortisone 20 mg QAM & 10 mg at 3pm. (4) UTI (urinary tract infection): Plan: Started on Keflex as mentioned above (5) Hypotension: Plan: IVF and hydrocortisone as above. Patient with normal mentation with systolic BP in 90s. (6) Osteoporosis: Plan: - Hold alendronate while inpatient (7) History of alcohol abuse: Plan: Noted. (8) GERD (gastroesophageal reflux disease): Plan: - Continue pantoprazole (9) Hyperlipidemia: Plan: - Continue pravastatin (10) COPD (chronic obstructive pulmonary disease): Plan: - Continue home Flovent, Combivent, fluticasone (11) Rheumatoid arthritis: Plan: - Hold meloxicam (12) Anemia: Plan: At baseline. Periodically will monitor. (13) Hypomagnesemia: Plan: Resolved with supplementation. - Continue to monitor. (14) Hypokalemia: Plan: Resolved with supplementation. Continue to monitor daily for potential need to continue this. ?due to adrenal insufficiency. (15) Frequent falls: Plan: The patient requires inpatient rehab, pending placement, discussed with the case management assistant (16) Tinea cruris: Plan: Continue nystatin cream (17) Pancreatic insufficiency: Plan: -continue home creon -normal lipase, CT abd no pancreatitis Plan: Code Status: conditional, resuscitation, DNI DVT PPX: Lovenox 40mg daily Admission and Anticipated Discharge Date Admission Date: October 23, 2021 Subjective No complaint today Physical Exam Constitutional: well developed, + acute distress ("pain everywhere") and + frail appearing; + not well nourished Eyes: PERRL, conjunctivae normal, anicteric sclerae EOM intact bilaterally; no conjunctival abnormality ENMT: external ear and nose normal, oropharynx normal Neck: trachea midline, no thyromegaly normal visual inspection Respiratory: normal respiratory effort, lungs clear to auscultation no respiratory distress Auscultation: no crackles, no rhonchi and no wheezes Cardiovascular: RRR, no murmur, no edema Rate/Rhythm: regular rate and regular rhythm Heart Sounds: no murmur Extremities: normal capillary refill; no calf tenderness and no pedal edema Gastrointestinal (Abdomen): Inspection/Auscultation: abdomen normal to inspection and normal bowel sounds; abdomen not distended Percussion/Palpation: abdomen soft; abdomen nontender, no guarding and abdomen not rigid Musculoskeletal: no cyanosis or clubbing, extremities motor strength 5/5 Skin: no rashes, warm and dry + erythema (groin) Neurologic: moves all extremities and awake; not confused Psychiatric: A+Ox3, euthymic affect Orientation: alert, oriented to person and cooperative Genitourinary: + CVA tenderness (bilaterally equal) Results & Data Results & [facility] ([facility]) Vital Signs (Past 12 Hours) Vital Signs Temp Pulse Pulse Resp BP Pulse Ox 10/26/21 16:37 78 10/26/21 14:53 36.7 C 78 20 102/63 96 10/26/21 11:53 36.6 C 84 20 108/69 99 10/26/21 08:24 36.7 C 66 20 103/62 95 10/26/21 08:03 67 10/26/21 07:39 74 18 96 PG Care Time/CCT Total # of Minutes Spent Total Time Spent with Patient: Total time spent is greater than 50% in coordination of care (as documented) at patient's floor/unit and/or counseling patient: Coding Level of Care Code 68134 Subseq Hosp Care Lvl 2 Diagnoses Abdominal pain with vomiting R10.9; R11.10 Hyponatremia E87.1 Adrenal insufficiency E27.40 UTI (urinary tract infection) N39.0 Hypotension I95.9 Osteoporosis M81.0 History of alcohol abuse F10.11 GERD (gastroesophageal reflux disease) K21.9 Hyperlipidemia E78.5 COPD (chronic obstructive pulmonary disease) J44.9 Rheumatoid arthritis M06.9 Anemia D64.9 Hypomagnesemia E83.42 Hypokalemia E87.6 Frequent falls R29.6 Tinea cruris B35.6 Pancreatic insufficiency K86.89
[2021-10-26] MEDS ORDERED: cephALEXin 500 MG CAP PO SCH (17:00)
[2021-10-26] MEDS: SODIUM CHLORIDE 0.9% 1000ML 1,000 ML IV SCH (17:42)
[2021-10-26] MEDS: CEFDINIR 300 MG CAP PO SCH (20:35)
[2021-10-26] MEDS: ENOXAPARIN INJ 40 MG/0.4 ML SYR SQ SCH (20:36)
[2021-10-27 00:54] LABS: Adenovirus F 40/41 PCR Not Detected (NotDetected); Astrovirus PCR Not Detected (NotDetected); Campylobacter PCR Not Detected (NotDetected); Clostridium diff Toxin A/B PCR Not Detected (NotDetected); Cryptosporidium PCR Not Detected (NotDetected); Cyclospora cayetanensis PCR Not Detected (NotDetected); Entamoeba histolytica PCR Not Detected (NotDetected); Enteroaggregative E.coli(EAEC) Not Detected (NotDetected); Enteropathogenic E.coli (EPEC) Not Detected (NotDetected); Enterotoxigenic E.coli (ETEC) Not Detected (NotDetected); Giardia lamblia PCR Not Detected (NotDetected); Norovirus GI/GII PCR Not Detected (NotDetected); Plesiomonas shigelloides PCR Not Detected (NotDetected); Rotavirus A PCR Not Detected (NotDetected); Salmonella PCR Not Detected (NotDetected); Sapovirus PCR Not Detected (NotDetected); Shiga-like Toxin E.coli (STEC) Not Detected (NotDetected); Shigella/Enteroinvasive E.coli Not Detected (NotDetected); Vibrio cholerae PCR Not Detected (NotDetected); Vibrio species PCR Not Detected (NotDetected); Yersinia enterocolitica PCR Not Detected (NotDetected)
[2021-10-27 06:03] LABS: Albumin Globulin Ratio 1.1 (0.9-2); Albumin Level 2.4 gm/dl (3.4-5.0); BUN Creatinine Ratio 8.7 (10-20); Bilirubin,Total 0.3 mg/dl (0.2-1.0); Calcium 7.4 mg/dl (8.5-10.1); Est GFR (African American) 126.2 ml/min; Est GFR (Non-African American) 108.9 ml/min; Globulin 2.1 gm/dl (2.5-4.0); Magnesium 1.4 mg/dl (1.7-2.4); Phosphorus 3.2 mg/dl (2.5-4.9); Potassium 3.4 mmol/L (3.5-5.1); Total Protein 4.5 gm/dl (6.0-8.3)
[2021-10-27] MEDS: SODIUM CHLORIDE 0.9% 1000ML 1,000 ML IV SCH ×2 (06:17→18:23)
[2021-10-27] MEDS: PANCREAZE (LIPASE 10,500U) CAP PO SCH ×3 (07:33→15:21)
[2021-10-27] MEDS: CEFDINIR 300 MG CAP PO SCH ×2 (07:33→20:42)
[2021-10-27] MEDS: PANTOprazole 40 MG TAB PO SCH (07:34)
[2021-10-27] MEDS: FOLIC ACID 1 MG TAB PO SCH (07:34)
[2021-10-27] MEDS: PRAVASTATIN SOD 10 MG TAB PO SCH (07:34)
[2021-10-27] MEDS: FERROUS SULFATE 325 MG TAB PO SCH ×2 (07:34→15:22)
[2021-10-27] MEDS: CHOLECALCIFEROL 1,000 UNITS 25 MCG TAB PO SCH (07:34)
[2021-10-27] MEDS: FLUTICASONE FUROATE 200MCG 14 PUFFS/INHALER INH SCH (07:35)
[2021-10-27] MEDS: FLUTICASONE PROPIONATE NA SPR 16 GM BTL SCH (07:35)
[2021-10-27] MEDS: HYDROCORTISONE 10 MG TAB PO SCH ×2 (07:35→15:21)
[2021-10-27] MEDS: ONDANSETRON INJ 2 MG/ML 2 ML VIAL IV PRN (07:39)
[2021-10-27] MEDS: ACETAMINOPHEN 325 MG TAB PO PRN (07:39)
[2021-10-27] MEDS: NYSTATIN OINT 15 GM TUBE EXT SCH ×2 (07:47→20:42)
[2021-10-27] MEDS: diphenhydrAMINE Capsule 25 MG CAP PO PRN (07:47)
[2021-10-27] MEDS: ALBUTEROL HFA 8 GM INHALER INH SCH ×2 (09:25→19:37)
[2021-10-27] MEDS: IPRATROPIUM BROMIDE HFA INHALER INH SCH ×2 (09:25→19:37)
--- NOTE | 2021-10-27 18:25 | Hospitalist Progress Note ---
Date of Service October 27, 2021 Assessment & Plan (1) Abdominal pain with vomiting: Plan: Resolved Suspect secondary to UTI +/- adrenal insufficiency. -Klebsiella grew in the urine culture sensitive to cefazolin, stop Rocephin, started on Keflex (2) Hyponatremia: Plan: Suspect nutritional. Switched LR to NSS. Acute on chronic. - Order urine/serum osm (3) Adrenal insufficiency: Plan: Given hypotension initially started on stress dose - Stopped prednisone on admission. - hydrocortisone 20 mg QAM & 10 mg at 3pm. (4) UTI (urinary tract infection): Plan: Started on Keflex as mentioned above (5) Hypotension: Plan: IVF and hydrocortisone as above. Patient with normal mentation with systolic BP in 90s. (6) Osteoporosis: Plan: - Hold alendronate while inpatient (7) History of alcohol abuse: Plan: Noted. (8) GERD (gastroesophageal reflux disease): Plan: - Continue pantoprazole (9) Hyperlipidemia: Plan: - Continue pravastatin (10) COPD (chronic obstructive pulmonary disease): Plan: - Continue home Flovent, Combivent, fluticasone (11) Rheumatoid arthritis: Plan: - Hold meloxicam (12) Anemia: Plan: At baseline. Periodically will monitor. (13) Hypomagnesemia: Plan: Resolved with supplementation. - Continue to monitor. (14) Hypokalemia: Plan: Resolved with supplementation. Continue to monitor daily for potential need to continue this. ?due to adrenal insufficiency. (15) Frequent falls: Plan: The patient requires inpatient rehab, pending placement, discussed with the case preparer and liner (16) Tinea cruris: Plan: Continue nystatin cream (17) Pancreatic insufficiency: Plan: -continue home creon -normal lipase, CT abd no pancreatitis Plan: Code Status: conditional, resuscitation, DNI DVT PPX: Lovenox 40mg daily Admission and Anticipated Discharge Date Admission Date: October 23, 2021 Subjective No complaint today, waiting for place Review of Systems Review of Systems: see hpi Physical Exam Constitutional: well developed, + acute distress ("pain everywhere") and + frail appearing; + not well nourished Eyes: PERRL, conjunctivae normal, anicteric sclerae EOM intact bilaterally; no conjunctival abnormality ENMT: external ear and nose normal, oropharynx normal Neck: trachea midline, no thyromegaly normal visual inspection Respiratory: normal respiratory effort, lungs clear to auscultation no respiratory distress Auscultation: no crackles, no rhonchi and no wheezes Cardiovascular: RRR, no murmur, no edema Rate/Rhythm: regular rate and regular rhythm Heart Sounds: no murmur Extremities: normal capillary refill; no calf tenderness and no pedal edema Gastrointestinal (Abdomen): Inspection/Auscultation: abdomen normal to inspection and normal bowel sounds; abdomen not distended Percussion/Palpation: abdomen soft; abdomen nontender, no guarding and abdomen not rigid Musculoskeletal: no cyanosis or clubbing, extremities motor strength 5/5 Skin: no rashes, warm and dry + erythema (groin) Neurologic: moves all extremities and awake; not confused Psychiatric: A+Ox3, euthymic affect Orientation: alert, oriented to person and cooperative Genitourinary: + CVA tenderness (bilaterally equal) Results & Data Results & Data ([facility]) Vital Signs (Past 12 Hours) Vital Signs Temp Pulse Resp BP Pulse Ox 10/27/21 15:30 36.9 C 80 20 125/69 99 10/27/21 08:27 36.9 C 65 18 135/76 97 10/27/21 07:25 78 18 97 PG Care Time/CCT Total # of Minutes Spent Total Time Spent with Patient: Total time spent is greater than 50% in coordination of care (as documented) at patient's floor/unit and/or counseling patient: Coding Level of Care Code 24484 Subseq Hosp Care Lvl 1 Diagnoses Abdominal pain with vomiting R10.9; R11.10 Hyponatremia E87.1 Adrenal insufficiency E27.40 UTI (urinary tract infection) N39.0 Hypotension I95.9 Osteoporosis M81.0 History of alcohol abuse F10.11 GERD (gastroesophageal reflux disease) K21.9 Hyperlipidemia E78.5 COPD (chronic obstructive pulmonary disease) J44.9 Rheumatoid arthritis M06.9 Anemia D64.9 Hypomagnesemia E83.42 Hypokalemia E87.6 Frequent falls R29.6 Tinea cruris B35.6 Pancreatic insufficiency K86.89
[2021-10-27] MEDS: ENOXAPARIN INJ 40 MG/0.4 ML SYR SQ SCH (20:42)
[2021-10-28] MEDS: diphenhydrAMINE Capsule 25 MG CAP PO PRN (01:06)
[2021-10-28] MEDS: ALBUTEROL HFA 8 GM INHALER INH SCH ×2 (07:12→19:51)
[2021-10-28] MEDS: IPRATROPIUM BROMIDE HFA INHALER INH SCH ×2 (07:12→19:50)
[2021-10-28] MEDS: SODIUM CHLORIDE 0.9% 1000ML 1,000 ML IV SCH (07:39)
[2021-10-28] MEDS: CEFDINIR 300 MG CAP PO SCH ×2 (07:52→20:09)
[2021-10-28] MEDS: FERROUS SULFATE 325 MG TAB PO SCH ×2 (07:52→16:24)
[2021-10-28] MEDS: PRAVASTATIN SOD 10 MG TAB PO SCH (07:52)
[2021-10-28] MEDS: PANTOprazole 40 MG TAB PO SCH (07:52)
[2021-10-28] MEDS: HYDROCORTISONE 10 MG TAB PO SCH ×2 (07:53→14:11)
[2021-10-28] MEDS: CHOLECALCIFEROL 1,000 UNITS 25 MCG TAB PO SCH (07:53)
[2021-10-28] MEDS: FOLIC ACID 1 MG TAB PO SCH (07:53)
[2021-10-28] MEDS: PANCREAZE (LIPASE 10,500U) CAP PO SCH ×3 (07:53→16:24)
[2021-10-28] MEDS: FLUTICASONE PROPIONATE NA SPR 16 GM BTL SCH (07:54)
[2021-10-28] MEDS: NYSTATIN OINT 15 GM TUBE EXT SCH ×2 (07:54→20:09)
[2021-10-28] MEDS: FLUTICASONE FUROATE 200MCG 14 PUFFS/INHALER INH SCH (07:54)
--- NOTE | 2021-10-28 16:04 | Hospitalist Progress Note ---
Date of Service October 28, 2021 Assessment & Plan (1) Abdominal pain with vomiting: Plan: Resolved Suspect secondary to UTI +/- adrenal insufficiency. -Klebsiella grew in the urine culture sensitive to cefazolin, stop Rocephin, started on cefdinir (2) Hyponatremia: Plan: BMP tomorrow, stop IV fluid (3) Adrenal insufficiency: Plan: Given hypotension initially started on stress dose - Stopped prednisone on admission. - hydrocortisone 20 mg QAM & 10 mg at 3pm. (4) UTI (urinary tract infection): Plan: Continue cefdinir possibly discontinued (5) Hypotension: Plan: Resolved (6) Osteoporosis: Plan: - Hold alendronate while inpatient (7) History of alcohol abuse: Plan: Noted. (8) GERD (gastroesophageal reflux disease): Plan: - Continue pantoprazole (9) Hyperlipidemia: Plan: - Continue pravastatin (10) COPD (chronic obstructive pulmonary disease): Plan: - Continue home Flovent, Combivent, fluticasone (11) Rheumatoid arthritis: Plan: - Hold meloxicam (12) Anemia: Plan: At baseline. Periodically will monitor. (13) Hypomagnesemia: Plan: Resolved with supplementation. - Continue to monitor. (14) Hypokalemia: Plan: Resolved with supplementation. Continue to monitor daily for potential need to continue this. ?due to adrenal insufficiency. (15) Frequent falls: Plan: The patient requires inpatient rehab, pending placement, discussed with the heel caser (16) Tinea cruris: Plan: Continue nystatin cream (17) Pancreatic insufficiency: Plan: -continue home creon -normal lipase, CT abd no pancreatitis Plan: Code Status: conditional, resuscitation, DNI DVT PPX: Lovenox 40mg daily Admission and Anticipated Discharge Date Admission Date: October 23, 2021 Subjective No complaint today, waiting for place, walking with a walker Review of Systems Review of Systems: General: No malaise no weakness Neck: No tenderness no pain HEENT: No eye discharge no ear discharge Chest: No chest pain, no palpitation GI: Not distended, no nausea no vomiting Extremities: No edema no tenderness Neurology: No headache no weakness Psychiatric: No depression no anxiety Physical Exam Constitutional: well developed, + acute distress ("pain everywhere") and + frail appearing; + not well nourished Eyes: PERRL, conjunctivae normal, anicteric sclerae EOM intact bilaterally; no conjunctival abnormality ENMT: external ear and nose normal, oropharynx normal Neck: trachea midline, no thyromegaly normal visual inspection Respiratory: normal respiratory effort, lungs clear to auscultation no respiratory distress Auscultation: no crackles, no rhonchi and no wheezes Cardiovascular: RRR, no murmur, no edema Rate/Rhythm: regular rate and regular rhythm Heart Sounds: no murmur Extremities: normal capillary refill; no calf tenderness and no pedal edema Gastrointestinal (Abdomen): Inspection/Auscultation: abdomen normal to inspection and normal bowel sounds; abdomen not distended Per cussion/Palpation: abdomen soft; abdomen nontender, no guarding and abdomen not rigid Musculoskeletal: no cyanosis or clubbing, extremities motor strength 5/5 Skin: no rashes, warm and dry + erythema (groin) Neurologic: moves all extremities and awake; not confused Psychiatric: A+Ox3, euthymic affect Orientation: alert, oriented to person and cooperative Genitourinary: + CVA tenderness (bilaterally equal) Results & Data Results & Data ([facility]) Vital Signs (Past 12 Hours) Vital Signs Temp Pulse Pulse Resp BP Pulse Ox 10/28/21 14:37 36.8 C 76 20 120/72 96 10/28/21 11:14 36.7 C 65 18 128/72 98 10/28/21 07:40 36.9 C 70 18 121/83 97 10/28/21 07:33 64 10/28/21 07:13 82 20 96 PG Care Time/CCT Total # of Minutes Spent Total Time Spent with Patient: Total time spent is greater than 50% in coordination of care (as documented) at patient's floor/unit and/or counseling patient: Coding Level of Care Code 88885 Subseq Hosp Care Lvl 2 Diagnoses Abdominal pain with vomiting R10.9; R11.10 Hyponatremia E87.1 Adrenal insufficiency E27.40 UTI (urinary tract infection) N39.0 Hypotension I95.9 Osteoporosis M81.0 History of alcohol abuse F10.11 GERD (gastroesophageal reflux disease) K21.9 Hyperlipidemia E78.5 COPD (chronic obstructive pulmonary disease) J44.9 Rheumatoid arthritis M06.9 Anemia D64.9 Hypomagnesemia E83.42 Hypokalemia E87.6 Frequent falls R29.6 Tinea cruris B35.6 Pancreatic insufficiency K86.89
[2021-10-28] MEDS: ENOXAPARIN INJ 40 MG/0.4 ML SYR SQ SCH (20:08)
[2021-10-29] MEDS: diphenhydrAMINE Capsule 25 MG CAP PO PRN (01:31)
[2021-10-29] MEDS ORDERED: ALENDRONATE SODIUM 70 MG TAB PO SCH (06:30)
[2021-10-29] MEDS: IPRATROPIUM BROMIDE HFA INHALER INH SCH ×2 (07:03→20:07)
[2021-10-29] MEDS: ALBUTEROL HFA 8 GM INHALER INH SCH ×2 (07:03→20:07)
[2021-10-29] MEDS: CEFDINIR 300 MG CAP PO SCH ×2 (08:19→20:40)
[2021-10-29] MEDS: FERROUS SULFATE 325 MG TAB PO SCH ×2 (08:19→15:36)
[2021-10-29] MEDS: CHOLECALCIFEROL 1,000 UNITS 25 MCG TAB PO SCH (08:20)
[2021-10-29] MEDS: PANCREAZE (LIPASE 10,500U) CAP PO SCH ×3 (08:20→15:36)
[2021-10-29] MEDS: PANTOprazole 40 MG TAB PO SCH (08:20)
[2021-10-29] MEDS: FLUTICASONE PROPIONATE NA SPR 16 GM BTL SCH (08:21)
[2021-10-29] MEDS: FLUTICASONE FUROATE 200MCG 14 PUFFS/INHALER INH SCH (08:21)
[2021-10-29] MEDS: HYDROCORTISONE 10 MG TAB PO SCH ×2 (08:21→15:36)
[2021-10-29] MEDS: FOLIC ACID 1 MG TAB PO SCH (08:22)
[2021-10-29] MEDS: PRAVASTATIN SOD 10 MG TAB PO SCH (08:22)
[2021-10-29] MEDS: NYSTATIN OINT 15 GM TUBE EXT SCH ×2 (08:22→20:41)
--- NOTE | 2021-10-29 14:41 | Hospitalist Progress Note ---
Date of Service October 29, 2021 Assessment & Plan (1) Abdominal pain with vomiting: Plan: Resolved Suspect secondary to UTI +/- adrenal insufficiency. -Klebsiella grew in the urine culture sensitive to cefazolin, stop Rocephin, started on cefdinir (2) Hyponatremia: Plan: BMP tomorrow, stop IV fluid (3) Adrenal insufficiency: Plan: Given hypotension initially started on stress dose - Stopped prednisone on admission. - hydrocortisone 20 mg QAM & 10 mg at 3pm. (4) UTI (urinary tract infection): Plan: Continue cefdinir possibly discontinued (5) Hypotension: Plan: Resolved (6) Osteoporosis: Plan: - Hold alendronate while inpatient (7) History of alcohol abuse: Plan: Noted. (8) GERD (gastroesophageal reflux disease): Plan: - Continue pantoprazole (9) Hyperlipidemia: Plan: - Continue pravastatin (10) COPD (chronic obstructive pulmonary disease): Plan: - Continue home Flovent, Combivent, fluticasone (11) Rheumatoid arthritis: Plan: - Hold meloxicam (12) Anemia: Plan: At baseline. Periodically will monitor. (13) Hypomagnesemia: Plan: Resolved with supplementation. - Continue to monitor. (14) Hypokalemia: Plan: Resolved with supplementation. Continue to monitor daily for potential need to continue this. ?due to adrenal insufficiency. (15) Frequent falls: Plan: The patient requires inpatient rehab, pending placement, discussed with the supportive employment case manager (16) Tinea cruris: Plan: Continue nystatin cream (17) Pancreatic insufficiency: Plan: -continue home creon -normal lipase, CT abd no pancreatitis Plan: Code Status: conditional, resuscitation, DNI DVT PPX: Lovenox 40mg daily Admission and Anticipated Discharge Date Admission Date: October 23, 2021 Subjective No complaint today, waiting for place, walking with a walker, spoke with the supportive employment case manager no insurance authorization yet Physical Exam Constitutional: well developed, + acute distress ("pain everywhere") and + frail appearing; + not well nourished Eyes: PERRL, conjunctivae normal, anicteric sclerae EOM intact bilaterally; no conjunctival abnormality ENMT: external ear and nose normal, oropharynx normal Neck: trachea midline, no thyromegaly normal visual inspection Respiratory: normal respiratory effort, lungs clear to auscultation no respiratory distress Auscultation: no crackles, no rhonchi and no wheezes Cardiovascular: RRR, no murmur, no edema Rate/Rhythm: regular rate and regular rhythm Heart Sounds: no murmur Extremities: normal capillary refill; no calf tenderness and no pedal edema Gastrointestinal (Abdomen): Inspection/Auscultation: abdomen normal to inspection and normal bowel sounds; abdomen not distended Percussion/Palpation: abdomen soft; abdomen nontender, no guarding and abdomen not rigid Musculoskeletal: no cyanosis or clubbing, extremities motor strength 5/5 Skin: no rashes, warm and dry + erythema (groin) Neurologic: moves all extremities and awake; not confused Psychiatric: A+Ox3, euthymic affect Orientation: alert, oriented to person and cooperative Genitourinary: + CVA tenderness (bilaterally equal) Results & Data Results & Data ([facility]) Vital Signs (Past 12 Hours) Vital Signs Temp Pulse Pulse Resp BP BP Pulse Ox 10/29/21 10:58 36.7 C 91 H 20 141/76 H 96 10/29/21 09:12 63 10/29/21 07:05 72 16 94 10/29/21 06:26 36.7 C 72 16 150/83 H 95 10/29/21 04:11 36.8 C 78 16 159/90 H 96 PG Care Time/CCT Total # of Minutes Spent Total Time Spent with Patient: Total time spent is greater than 50% in coordination of care (as documented) at patient's floor/unit and/or counseling patient: Coding Level of Care Code 88225 Subseq Hosp Care Lvl 1 Diagnoses Abdominal pain with vomiting R10.9; R11.10 Hyponatremia E87.1 Adrenal insufficiency E27.40 UTI (urinary tract infection) N39.0 Hypotension I95.9 Osteoporosis M81.0 History of alcohol abuse F10.11 GERD (gastroesophageal reflux disease) K21.9 Hyperlipidemia E78.5 COPD (chronic obstructive pulmonary disease) J44.9 Rheumatoid arthritis M06.9 Anemia D64.9 Hypomagnesemia E83.42 Hypokalemia E87.6 Frequent falls R29.6 Tinea cruris B35.6 Pancreatic insufficiency K86.89
[2021-10-29] MEDS: ENOXAPARIN INJ 40 MG/0.4 ML SYR SQ SCH (20:40)
[2021-10-30] MEDS: IPRATROPIUM BROMIDE HFA INHALER INH SCH (07:27)
[2021-10-30] MEDS: ALBUTEROL HFA 8 GM INHALER INH SCH (07:28)
[2021-10-30] MEDS: PANCREAZE (LIPASE 10,500U) CAP PO SCH ×2 (09:36→12:56)
[2021-10-30] MEDS: CEFDINIR 300 MG CAP PO SCH (09:37)
[2021-10-30] MEDS: CHOLECALCIFEROL 1,000 UNITS 25 MCG TAB PO SCH (09:37)
[2021-10-30] MEDS: FERROUS SULFATE 325 MG TAB PO SCH (09:38)
[2021-10-30] MEDS: FLUTICASONE FUROATE 200MCG 14 PUFFS/INHALER INH SCH (09:38)
[2021-10-30] MEDS: PANTOprazole 40 MG TAB PO SCH (09:40)
[2021-10-30] MEDS: HYDROCORTISONE 10 MG TAB PO SCH ×2 (09:40→15:35)
[2021-10-30] MEDS: FLUTICASONE PROPIONATE NA SPR 16 GM BTL SCH (09:41)
[2021-10-30] MEDS: PRAVASTATIN SOD 10 MG TAB PO SCH (09:41)
[2021-10-30] MEDS: NYSTATIN OINT 15 GM TUBE EXT SCH (09:42)
[2021-10-30] MEDS: FOLIC ACID 1 MG TAB PO SCH (10:37)
--- NOTE | 2021-10-30 15:28 | Discharge Summary ---
Date of Service October 30, 2021 Admission HPI Per Admitting Provider 60yo Female PMH pancreatic insufficiency, adrenal insufficiency, alcohol use disorder, hypotension, anemia, osteoporosis, and RA here for 1.5wk abdominal pain vomiting. Found to be hyponatremic [id number] in ED. Patient states she developed abd pain 1.5-2.5wks ago, unsure of what caused it, denied any trauma new foods medications, states her pain has been there constantly. States the pain is currently on her left and right side of abdomen, a bit worse on the lower side, though does complain of epigastric pain on palpation as well. States she has also had vomiting dizziness 1.5wks, has not eaten food in 5-6 days, sto pped her medication 2 days ago because it made her feel worse. She has tried to drink some water but states her mouth is still dry. She also describes some pain on her chest under left breast. States her feet are cold. Patient denies back pain SOB. She states 3 wks ago fell hit her head. She states she has a PCP but hasn't seen him recently, maybe sees a doctor once a year. Has not followed up with endocrine. Is not on prednisone at home. Is not on additional medication for her arthritis at home. She only drinks alcohol on weekends. In EMS she received 500ml bolus NS, in ED received additional 2L bolus NS, as well as 10meq KCl and 1g Mg. Principal Diagnosis Nausea vomiting possibly secondary to UTI in the setting of chronic pancreatitis and adrenal Discharge Exam Constitutional well developed, + acute distress ("pain everywhere") and + frail appearing; + not well nourished Eyes PERRL, conjunctivae normal, anicteric sclerae EOM intact bilaterally; no conjunctival abnormality ENMT external ear and nose normal, oropharynx normal Neck trachea midline, no thyromegaly normal visual inspection Respiratory normal respiratory effort, lungs clear to auscultation no respiratory distress Auscultation: no crackles, no rhonchi and no wheezes Cardiovascular RRR, no murmur, no edema Rate/Rhythm: regular rate and regular rhythm Heart Sounds: no murmur Extremities: normal capillary refill; no calf tenderness and no pedal edema Gastrointestinal (Abdomen) Inspection/Auscultation: abdomen normal to inspection and normal bowel sounds; abdomen not distended Percussion/Palpation: abdomen soft; abdomen nontender, no guarding and abdomen not rigid Musculoskeletal no cyanosis or clubbing, extremities motor strength 5/5 Skin no rashes, warm and dry + erythema (groin) Neurologic moves all extremities and awake; not confused Psychiatric A+Ox3, euthymic affect Orientation: alert, oriented to person and cooperative Genitourinary + CVA tenderness (bilaterally equal) Discharge Data Allergies Allergy/AdvReac Type Severity Reaction Status Date / Time Penicillins Allergy Intermediate Rash Verified 10/23/21 18:43 Consultations 10/23/21 21:15 ED Decision to Admit Stat Ordered Studies 10/23/21 16:30 CT abd pelvis IV con only Stat Hospital Course (1) Abdominal pain with vomiting: Resolved Suspect secondary to UTI +/- adrenal insufficiency. -Klebsiella grew in the urine culture sensitive to cefazolin, stop Rocephin, started on cefdinir, complete the course of treatment Stopped NSAIDs given can cause gastritis (patient take meloxicam) (2) Hyponatremia: Resolved (3) Adrenal insufficiency: Given hypotension initially started on stress dose - Stopped prednisone on admission. - hydrocortisone 20 mg QAM & 10 mg at 3pm. (4) UTI (urinary tract infection): Complete the course of treatment, recommend to drink heart healthy beverages ,avoid constipation, wipe properly after bowel movement, do not hold your urine (5) Hypotension: Resolved (6) Osteoporosis: -Continue alendronate, bone density test outpatient (7) History of alcohol abuse: Continue thiamine and folic (8) GERD (gastroesophageal reflux disease): - Continue pantoprazole (9) Hyperlipidemia: - Continue pravastatin (10) COPD (chronic obstructive pulmonary disease): - Continue home Flovent, Combivent, fluticasone (11) Rheumatoid arthritis: Stop meloxicam due to nausea and vomiting (12) Anemia: At baseline. Periodically will monitor. (13) Hypomagnesemia: Resolved with supplementation. - Continue to monitor. (14) Hypokalemia: Resolved with supplementation. Continue to monitor daily for potential need to continue this. ?due to adrenal insufficiency. (15) Frequent falls: The patient requires inpatient rehab, pending placement, discussed with the therapeutic case manager (16) Tinea cruris: Continue nystatin cream (17) Pancreatic insufficiency: -continue home creon -normal lipase, CT abd no pancreatitis Code Status: conditional, resuscitation, DNI DVT PPX: Lovenox 40mg daily Total Time Total Time Spent Total Time Spent (In Minutes): 45 mins Discharge Plan Discharge Items Patient Disposition: Transfer [facility] Fac Reason For Visit: NAUSEA, VOMITING, DIARRHEA, AB PAIN Discharge Diagnosis: Urinary tract infection, ambulatory dysfunction, history of alcohol Activity: Resume your previous activity Bathing: No limitations Sexual Activity: When tolerated Exercise/Sports: Gradually increase as tolerated Weightbearing: Full weightbearing Non-emergency contact: Primary Care Provider Call non-emergency contact if: you have any medication questions Follow-up/Referrals: Darian Lopez [Primary Care Provider] - Diet: Heart Healthy Addtl Attending Provider Instructions: Please follow-up with your primary care doctor in 3 weeks Pending Studies at Discharge: Yes Studies:: DEXA scan bone density test Stand-Alone Forms: My [facility] Skilled Items Patient informed of condition?: Yes DNR: No Discharge Level of Care: Skilled Communicable Disease: No Discharge Prognosis: Stable Lines: None Urinary Catheter: No Medications and DC Order Prescriptions: No Action pravastatin 10 mg tablet 10 mg PO DAILY RF: 0 folic acid 1 mg tablet 1 mg PO DAILY RF: 0 cholecalciferol (vitamin D3) [Vitamin D3] 50 mcg (2,000 unit) capsule 2,000 mcg PO DAILY RF: 0 meloxicam 15 mg tablet 15 mg PO DAILY RF: 0 alendronate 70 mg tablet 70 mg PO WK RF: 0 pantoprazole 20 mg tablet,delayed release (DR/EC) 20 mg PO DAILY RF: 0 ferrous sulfate 325 mg (65 mg iron) tablet 325 mg PO BID RF: 0 fluticasone propionate 50 mcg/actuation spray,suspension 2 spray INTRANASAL DAILY RF: 0 potassium chloride 10 mEq capsule, extended release 20 meq PO BID RF: 0 Creon 36,000-114,000- 180,000 unit Capsule,Delayed Release(Dr/Ec) 1 cap PO AC Qty: 90 RF: 0 Flovent HFA 110 mcg/actuation HFA aerosol inhaler 1 inh INHALATION BID RF: 0 Combivent Respimat 20-100 mcg/actuation mist 1 puff INHALATION BID RF: 0 Discharge Orders: Discharge Order (Routine); Ordered 10/30/21 Ordered By: Rene Sanchez Admission Data Admit Date/Time: 10/23/21 22:20 Attending Provider: Rene Sanchez Admit Provider: Kelli Orellana Primary Care Provider: Darian Lopez Other Providers: Ras Laura ; [facility] ; [facility] Coding Level of Care Code D/C DAY MANAGEMENT >30 MINS Diagnoses Abdominal pain with vomiting R10.9; R11.10 Hyponatremia E87.1 Adrenal insufficiency E27.40 UTI (urinary tract infection) N39.0 Hypotension I95.9 Osteoporosis M81.0 History of alcohol abuse F10.11 GERD (gastroesophageal reflux disease) K21.9 Hyperlipidemia E78.5 COPD (chronic obstructive pulmonary disease) J44.9 Rheumatoid arthritis M06.9 Anemia D64.9 Hypomagnesemia E83.42 Hypokalemia E87.6 Frequent falls R29.6 Tinea cruris B35.6 Pancreatic insufficiency K86.89
--- NOTE | 2021-10-31 19:00 | Electrocardiogram Report ---
Test Reason : Blood Pressure : / mmHG Vent. Rate : 085 BPM Atrial Rate : 085 BPM P-R Int : 160 ms QRS Dur : 080 ms QT Int : 420 ms P-R-T Axes : 033 -13 -35 degrees QTc Int : 500 ms Sinus rhythm with frequent Premature ventricular complexes Low voltage QRS Septal infarct (cited on or before 23-OCT-2019) Inferior infarct , age undetermined Prolonged QT Abnormal ECG When compared with ECG of 23-OCT-2021 15:57, Premature ventricular complexes are now Present QT has lengthened Confirmed by [place] ([id number]) on 10/31/2021 6:59:43 PM Referred By: REFERRED SELF Confirmed By:[place]
== END 2021-10-30 17:04 | DRG 644 ==
LOC: ED 14:49 → SUATTDRO 22:20 → 2N 22:20

== ENCOUNTER 2022-04-07 01:00 | Inpatient (IN) ==
[2022-04-07] MEDS ORDERED: ACETAMINOPHEN 1,000 MG/100 ML VIAL IV STA ×2 (01:54→13:01)
[2022-04-07] MEDS: fentaNYL citrate 100 MCG/2 ML VIAL IV PRN ×5 (02:04→06:00)
[2022-04-07] MEDS: SODIUM CHLORIDE 0.9% 1000ML 1,000 ML IV SCH ×2 (02:06→18:29)
[2022-04-07 02:24] LABS: Basophils # (auto) 0.03 K/uL (0-0.2); Basophils % (auto) 0.4 %; Eosinophils % (auto) 1.3 %; Hematocrit (blood only) 37.2 % (34.1-44.9); Immature Granulocytes # (auto) 0.05 K/uL (0.00-0.02); Immature Granulocytes % (auto) 0.7 %; Lymphocytes # (auto) 0.88 K/uL (1.2-3.4); Lymphocytes % (auto) 11.5 %; Mean Corpuscular Hemoglobin 31.9 pg (25.0-34.0); Mean Corpuscular Hgb Conc 34.9 g/dL (32.0-36.0); Mean Corpuscular Volume 91.4 fL (80.0-100.0); Mean Platelet Volume 8.7 fL (9.4-12.3); Monocytes % (auto) 7.9 %; Neutrophils # (auto) 5.96 K/uL (1.4-6.5); Neutrophils % (auto) 78.2 %; Platelet Count 209 K/uL (130-400); RDW Coefficient of Variation 13.7 % (11.5-14.5); RDW Standard Deviation 46.2 fL (36.4-46.3); Red Blood Count 4.07 M/uL (3.93-5.22); White Blood Count 7.62 K/ul (4.8-10.8)
[2022-04-07 02:35] LABS: Prothrombin Time 11.1 Seconds (9.0-12.0)
[2022-04-07 02:46] LABS: Albumin Globulin Ratio 1.4 (0.9-2); Albumin Level 3.5 gm/dl (3.4-5.0); BUN Creatinine Ratio 12.8 (10-20); Bilirubin,Total 0.4 mg/dl (0.2-1.0); Calcium 8.3 mg/dl (8.5-10.1); Creatinine Clr Calc Pharmacy 132.3 ml/min; Est GFR (African American) 132.3 ml/min; Est GFR (Non-African American) 114.2 ml/min; Globulin 2.5 gm/dl (2.5-4.0); Magnesium 1.7 mg/dl (1.7-2.4); Potassium 3.7 mmol/L (3.5-5.1)
--- NOTE | 2022-04-07 03:49 | Emergency Department Note ---
History of Present Illness General Chief complaint: Fall Stated complaint: FALL/rt LEG INJURY Time Seen by Provider: 04/07/22 01:34 Source: patient and EMS Mode of arrival: EMS Limitations: no limitations History of Present Illness Provider complaint: fall, right leg pain Maximum Pain Intensity: 10 This is a 61-year-old female brought in by EMS due to concern for fall and right leg injury. Patient states she got her walker caught in the dog bed and tripped falling onto her right side. She state she didn't hit her head, no LOC. She denies use of blood thinners. Patient denies any other concern for pain or injury. She states she has previously broken other bones and has seen orthop edic surgery. Patient denies any other prodromal symptoms to suggest syncopal event. Patient given pain medication in route by EMS. Home Medications Medication Instructions Recorded Confirmed Type cholecalciferol (vitamin D3) 50 2,000 mcg PO DAILY 06/19/19 10/23/21 History mcg (2,000 unit) capsule (Vitamin D3) folic acid 1 mg tablet 1 mg PO DAILY 06/19/19 10/23/21 History pravastatin 10 mg tablet 10 mg PO DAILY 06/19/19 10/23/21 History alendronate 70 mg tablet 70 mg PO WK 02/24/21 10/23/21 History ferrous sulfate 325 mg (65 mg 325 mg PO BID 02/24/21 10/23/21 History iron) tablet fluticasone propionate 50 2 spray intranasal DAILY 02/24/21 10/23/21 History mcg/actuation nasal spray,suspension pantoprazole 20 mg tablet,delayed 20 mg PO DAILY 02/24/21 10/23/21 History release potassium chloride 10 mEq 20 meq PO BID 02/24/21 10/23/21 History capsule,extended release iylkho-lhvfmesv-yjgelul 1 cap PO AC #90 caps 03/08/21 10/23/21 Rx 36,000-114,000-180,000 unit capsule,delay rel (Creon) fluticasone propionate 110 1 inh inhalation BID 10/23/21 10/23/21 History mcg/actuation HFA aerosol inhaler (Flovent HFA) ipratropium 20 mcg-albuterol 100 1 puff inhalation BID 10/23/21 10/23/21 History mcg/actuation mist for inhalation (Combivent Respimat) diphenhydramine HCl 25 mg capsule 25 mg PO [id number] PRN itching #30 10/30/21 Rx (Benadryl) caps hydrocortisone 10 mg tablet 10 mg PO DAILY@1500 #30 tabs 10/30/21 Rx (Cortef) hydrocortisone 10 mg tablet 20 mg PO QAM #30 tabs 10/30/21 Rx (Cortef) polyethylene glycol 3350 17 gram 17 g PO DAILY PRN constipation #30 10/30/21 Rx oral powder packet (Miralax) ea thiamine HCl (vitamin B1) 100 mg 100 mg PO DAILY #30 tabs 10/30/21 Rx tablet Allergies Allergy/AdvReac Type Severity Reaction Status Date / Time Penicillins Allergy Intermediate Rash Verified 10/23/21 18:43 Past Med/Surg History Medical History COPD (chronic obstructive pulmonary disease) GERD (gastroesophageal reflux disease) History of alcohol abuse Hyperlipidemia Hypokalemia Hyponatremia Hypotension Osteoporosis Protein calorie malnutrition Rheumatoid arthritis Surgical History S/P section Family History Other No significant family history Social History Smoking Status: Current every day smoker Cigarettes Per Day: 1-2/day; Second Hand Exposure: Yes; Do You Dip or Chew Tobacco: No; Tobacco Cessation Education Requested by Patient: No Hx Alcohol Use: Yes Alcohol type: beer Hx Substance Use: Yes Preferred Language: Omani Communication Ability: Effective [place] Helper Required: No Beliefs That Will Affect Care: None marital status: Life Partner Current Living Situation: Significant Other Current Living Situation Comment: lives with boyfriend current occupational status: unemployed Other Information That Helps Us Care for You: No Feels Safe at Home: Yes Safety Concerns: Feels Safe At This Time Assistive Devices: Denture - Upper, Denture - Lower, Glasses and Walker Review of Systems A total of 10 systems reviewed and were otherwise negative All systems reviewed & are unremarkable except as noted in HPI & below Physical Exam Vital Signs Vital Signs - 24 hr 04/07/22 01:08 04/07/22 02:34 04/07/22 03:35 Temperature 36.6 C Temperature Source Oral Pulse Rate 81 Pulse Rate [Apical] 77 73 Respiratory Rate 18 16 18 Respiratory Depth Normal Normal Normal Blood Pressure 123/77 Blood Pressure [Right Arm] 111/67 105/70 Blood Pressure Mean 92 Blood Pressure Mean [Right Arm] 81 81 Pulse Oximetry 94 97 95 Oxygen Delivery Method Room Air Nasal Cannula Nasal Cannula Oxygen Flow Rate 2 Sepsis Recent Fever Within 48 Hours No Sepsis New/Unexplained Change in Mental Status N/A Sepsis Action Taken by Nursing No Action Required 04/07/22 04:31 Temperature Temperature Source Pulse Rate Pulse Rate [Apical] 84 Respiratory Rate 16 Respiratory Depth Normal Blood Pressure Blood Pressure [Right Arm] 131/86 Blood Pressure Mean Blood Pressure Mean [Right Arm] 101 Pulse Oximetry 98 Oxygen Delivery Method Nasal Cannula Oxygen Flow Rate 2 Sepsis Recent Fever Within 48 Hours Sepsis New/Unexplained Change in Mental Status Sepsis Action Taken by Nursing GENERAL: alert, mild distress, non-toxic EYE EXAM: normal conjunctiva, PERRL and EOM's grossly intact OROPHARYNX: no exudate, no erythema, lips, buccal mucosa, and tongue normal and mucous membranes are moist NECK: supple, no nuchal rigidity, no adenopathy, non-tender LUNGS: Clear to auscultation. Normal chest wall mechanics, no w/r/r HEART: no murmurs, S1 normal and S2 normal ABDOMEN: abdomen soft, non-tender, normo-active bowel sounds, no masses, no rebound or guarding. BACK: Back is symmetrical on inspection and there is no deformity, no midline tenderness, no CVA tenderness. SKIN: no rashes and no bruising UPPER EXTREMITIES: upper extremities are grossly normal. FROM, nml pulses b/l. No deformity or evidence of trauma. LOWER EXTREMITIES: No pitting edema. nml pulses b/l, RLE held in flexion with deformity noted to proximal/lateral RLE, no joint effusions NEURO EXAM: Normal sensorium, cranial nerves II-XII grossly intact, normal speech, no gross weakness of arms. Gross sensation intact. Course Course 334: Discussed with Dr. Faye. Administered Medications Aspirin (Aspirin 81 Mg Ectab) 81 mg PO BID YOUNG Stop: 05/07/22 20:59 Last Admin: 04/08/22 07:50 Dose: 81 mg Documented By: Admin: 04/07/22 20:22 Dose: 81 mg Documented By: MK Fluticasone Furoate (Fluticasone Furoate 200mcg 14 Puffs/Inhaler) 1 puffs INH QAM [facility] Stop: 05/07/22 08:59 Last Admin: 04/08/22 07:51 Dose: 1 puffs Documented By: Admin: 04/07/22 09:42 Dose: 1 puffs Documented By: JERRY Hydromorphone HCl (Hydromorphone Inj 0.5 Mg/0.5 Ml Syr) 0.5 mg IV Q6H PRN PRN Reason: Severe Pain Stop: 04/21/22 06:34 Last Admin: 04/07/22 20:17 Dose: 0.5 mg Documented By: MK Folic Acid 1 mg/ Syringe 10 mls @ 5 mls/min IV QAM [facility] Stop: 05/07/22 08:59 Last Admin: 04/08/22 07:51 Dose: 5 mls/min Documented By: Admin: 04/07/22 09:42 Dose: 5 mls/min Documented By: JERRY Pantoprazole Sodium 40 mg/ (Syringe) 10 mls @ 5 mls/min IV DAILY@1100 [facility] Stop: 05/07/22 10:59 Last Admin: 04/07/22 18:33 Dose: 5 mls/min Documented By: VINOD Thiamine HCl 200 mg/ Sodium (Chloride) 52 mls @ 208 mls/hr IV QAM [facility] Stop: 05/08/22 08:59 Last Infusion: 04/08/22 08:52 Dose: 0 mls/hr Documented By: Admin: 04/08/22 07:52 Dose: 208 mls/hr Documented By: DONOVAN Sodium Chloride (Nss 1000ml) 1,000 mls @ 80 mls/hr IV .[id number] YOUNG Stop: 04/08/22 13:44 Last Admin: 04/08/22 07:11 Dose: 80 mls/hr Documented By: Infusion: 04/08/22 06:59 Dose: 80 mls/hr Documented By: Admin: 04/07/22 18:29 Dose: 80 mls/hr Documented By: VINOD Morphine Sulfate (Morphine Sulfate 4 Mg/Ml 1 Ml Carp\Vial) 4 mg IV Q4H PRN PRN Reason: Moderate Pain Stop: 04/21/22 06:34 Last Admin: 04/08/22 04:33 Dose: 4 mg Documented By: Admin: 04/07/22 22:19 Dose: 4 mg Documented By: Admin: 04/07/22 07:32 Dose: 4 mg Documented By: JERRY Discontinued Medications Acetaminophen (Acetaminophen 1000 Mg/100 Ml Iv) Confirm Administered Dose 1,000 mg IV .STK-MED ONE Stop: 04/07/22 13:03 Last Admin: 04/07/22 20:13 Dose: Not Given Documented By: MK Albuterol (Albut/Ipratrop 3mg/0.5mg Neb 3 Ml Vial) Confirm Administered Dose 3 ml .ROUTE .STK-MED ONE Stop: 04/07/22 12:14 Last Admin: 04/07/22 12:22 Dose: Not Given Documented By: ERMELINDA Albuterol (Albut/Ipratrop 3mg/0.5mg Neb 3 Ml Vial) 3 ml NEB NOW STA; Protocol Stop: 04/07/22 12:14 Last Admin: 04/07/22 12:21 Dose: Not Given Documented By: ERMELINDA Bupivacaine HCl (Bupivacaine 0.25% 30 Ml Vial) Confirm Administered Dose 30 ml .ROUTE .STK-MED ONE Stop: 04/07/22 09:51 Last Admin: 04/07/22 11:33 Dose: 30 ml Documented By: [id number] Fentanyl Citrate (Fentanyl Citrate 100 Mcg/2 Ml Vial) 50 mcg IV Q15M PRN PRN Reason: Pain Stop: 04/21/22 01:53 Last Admin: 04/07/22 06:00 Dose: 50 mcg Documented By: Admin: 04/07/22 04:00 Dose: 50 mcg Documented By: Admin: 04/07/22 03:35 Dose: 50 mcg Documented By: Admin: 04/07/22 02:35 Dose: 50 mcg Documented By: Admin: 04/07/22 02:04 Dose: 50 mcg Documented By: CRISTO Hydromorphone HCl (Hydromorphone Inj 0.5 Mg/0.5 Ml Syr) 0.5 mg IV NOW STA Stop: 04/08/22 00:36 Last Admin: 04/08/22 00:48 Dose: 0.5 mg Documented By: MK Sodium Chloride (Nss 1000ml) 1,000 mls @ 100 mls/hr IV .Q10H YOUNG Stop: 05/07/22 01:44 Last Admin: 04/08/22 00:19 Dose: Not Given Documented By: Infusion: 04/07/22 10:00 Dose: 0 mls/hr Documented By: Admin: 04/07/22 02:06 Dose: 125 mls/hr Documented By: CRISTO Acetaminophen (Ofirmev) 1,000 mg in 100 mls @ 400 mls/hr IV NOW STA Stop: 04/07/22 02:08 Last Infusion: 04/07/22 02:19 Dose: 0 mls/hr Documented By: Admin: 04/07/22 02:04 Dose: 400 mls/hr Documented By: CRISTO Thiamine HCl 100 mg/ Syringe 10 mls @ 2 mls/min IV QAM YOUNG Stop: 05/07/22 08:59 Last Admin: 04/07/22 09:42 Dose: 2 mls/min Documented By: JERRY Hydrocortisone Sodium (Succinate 20 mg/ Syringe) 0.4 mls @ 4 mls/min IV Q8H [facility] Stop: 04/09/22 06:59 Last Admin: 04/07/22 13:59 Dose: Not Given Documented By: JERRY Hydrocortisone Sodium (Succinate 100 mg/ Syringe) 2 mls @ 4 mls/min IV ONE ONE Stop: 04/07/22 08:31 Last Admin: 04/07/22 12:38 Dose: 4 mls/min Documented By: ERMELINDA Hydrocortisone Sodium (Succinate 50 mg/ Syringe) 1 mls @ 4 mls/min IV Q12H YOUNG Stop: 04/08/22 09:01 Last Admin: 04/08/22 07:52 Dose: 4 mls/min Documented By: Admin: 04/07/22 20:23 Dose: 4 mls/min Documented By: MK Thiamine HCl 500 mg/ Sodium (Chloride) 55 mls @ 220 mls/hr IV NOW STA Stop: 04/07/22 11:33 Last Admin: 04/07/22 18:28 Dose: Not Given Documented By: VINOD Cefazolin Sodium (Ancef 2000mg) 2,000 mg in 15 mls @ 3.75 mls/min IV ONCE ONE; Protocol Stop: 04/07/22 11:38 Last Admin: 04/07/22 10:40 Dose: 3.75 mls/min Documented By: SHAINA Cefazolin Sodium (Ancef 2000mg) 2,000 mg in 15 mls @ 3.75 mls/min IV Q8H [facility]; Protocol Stop: 04/08/22 02:48 Last Admin: 04/08/22 04:33 Dose: 3.75 mls/min Documented By: Admin: 04/07/22 21:00 Dose: 3.75 mls/min Documented By: MK Acetaminophen (Ofirmev) 1,000 mg in 100 mls @ 400 mls/hr IV NOW STA Stop: 04/07/22 13:15 Last Infusion: 04/07/22 21:55 Dose: 0 mls/hr Documented By: Admin: 04/07/22 13:03 Dose: 400 mls/hr Documented By: ERMELINDA Morphine Sulfate (Morphine Sulfate 4 Mg/Ml 1 Ml Carp\Vial) 4 mg IV NOW STA Stop: 04/07/22 04:26 Last Admin: 04/07/22 04:29 Dose: 4 mg Documented By: CRISTO Medical Decision Making Differential Diagnosis Differential diagnoses include major intracranial, cervical, spinal, thoracic, abdominal, pelvic and neurologic injury. Fracture, contusion, sprain, strain, laceration, abrasions included as well. Medical Records Attestation: I reviewed the patient's medical records. Home Medications Current Medication List: was personally reviewed by me Laboratory Data Attestation: I reviewed the patient's lab results. Result diagrams: 04/07/22 02:05 04/07/22 17:09 Lab Results 04/07/22 04/07/22 04/07/22 Range/Units 02:05 02:05 02:05 WBC 7.62 (4.8-10.8) K/ul RBC 4.07 (3.93-5.22) M/uL Hgb 13.0 (12.0-16.0) g/dl Hct 37.2 (34.1-44.9) % MCV 91.4 (80.0-100.0) fL MCH 31.9 (25.0-34.0) pg MCHC 34.9 (32.0-36.0) g/dL RDW Std Deviation 46.2 (36.4-46.3) fL RDW Coeff of Elo 13.7 (11.5-14.5) % Plt Count 209 (130-400) K/uL MPV 8.7 L (9.4-12.3) fL Immature Gran % (Auto) 0.7 % Neut % (Auto) 78.2 % Lymph % (Auto) 11.5 % [place] % (Auto) 7.9 % Eos % (Auto) 1.3 % Baso % (Auto) 0.4 % Neut # (Auto) 5.96 (1.4-6.5) K/uL Lymph # (Auto) 0.88 L (1.2-3.4) K/uL [place] # (Auto) 0.60 (0.24-0.82) K/uL Eos # (Auto) 0.10 (0-0.50) K/uL Baso # (Auto) 0.03 (0-0.2) K/uL Immature Gran # (Auto) 0.05 H (0.00-0.02) K/uL PT 11.1 (9.0-12.0) Seconds INR 1.0 (0.9-1.1) Sodium 130 L (136-145) mmol/L Potassium 3.7 (3.5-5.1) mmol/L Chloride 99 (98-107) mmol/L Carbon Dioxide 25 (21-32) mmol/L Anion Gap 6 (3-11) BUN 5 L (6-23) mg/dl Creatinine 0.39 L (0.6-1.2) mg/dl Est Cr Clr Drug Dosing 132.3 ml/min Est GFR ( Amer) 132.3 ml/min Est GFR (Non-Af Amer) 114.2 ml/min BUN/Creatinine Ratio 12.8 (10-20) Glucose 93 (70-99(Fasting)) mg/dl Calcium 8.3 L (8.5-10.1) mg/dl Magnesium 1.7 (1.7-2.4) mg/dl Total Bilirubin 0.4 (0.2-1.0) mg/dl AST 21 (13-39) U/L ALT 9 (7-52) U/L Alkaline Phosphatase 79 (34-104) U/L Total Protein 6.0 (6.0-8.3) gm/dl Albumin 3.5 (3.4-5.0) gm/dl Globulin 2.5 (2.5-4.0) gm/dl Albumin/Globulin Ratio 1.4 (0.9-2) Ethyl Alcohol mg/dL (<10.0) mg/dl SARS-CoV-2, RNA, NAAT (NEGATIVE) Blood Type Antibody Screen 04/07/22 04/07/22 04/07/22 Range/Units 02:05 02:11 04:10 WBC (4.8-10.8) K/ul RBC (3.93-5.22) M/uL Hgb (12.0-16.0) g/dl Hct (34.1-44.9) % MCV (80.0-100.0) fL MCH (25.0-34.0) pg MCHC (32.0-36.0) g/dL RDW Std Deviation (36.4-46.3) fL RDW Coeff of Elo (11.5-14.5) % Plt Count (130-400) K/uL MPV (9.4-12.3) fL Immature Gran % (Auto) % Neut % (Auto) % Lymph % (Auto) % [place] % (Auto) % Eos % (Auto) % Baso % (Auto) % Neut # (Auto) (1.4-6.5) K/uL Lymph # (Auto) (1.2-3.4) K/uL [place] # (Auto) (0.24-0.82) K/uL Eos # (Auto) (0-0.50) K/uL Baso # (Auto) (0-0.2) K/uL Immature Gran # (Auto) (0.00-0.02) K/uL PT (9.0-12.0) Seconds INR (0.9-1.1) Sodium (136-145) mmol/L Potassium (3.5-5.1) mmol/L Chloride (98-107) mmol/L Carbon Dioxide (21-32) mmol/L Anion Gap (3-11) BUN (6-23) mg/dl Creatinine (0.6-1.2) mg/dl Est Cr Clr Drug Dosing ml/min Est GFR ( Amer) ml/min Est GFR (Non-Af Amer) ml/min BUN/Creatinine Ratio (10-20) Glucose (70-99(Fasting)) mg/dl Calcium (8.5-10.1) mg/dl Magnesium (1.7-2.4) mg/dl Total Bilirubin (0.2-1.0) mg/dl AST (13-39) U/L ALT (7-52) U/L Alkaline Phosphatase (34-104) U/L Total Protein (6.0-8.3) gm/dl Albumin (3.4-5.0) gm/dl Globulin (2.5-4.0) gm/dl Albumin/Globulin Ratio (0.9-2) Ethyl Alcohol mg/dL < 10.0 (<10.0) mg/dl SARS-CoV-2, RNA, NAAT NEGATIVE (NEGATIVE) Blood Type B Positive Antibody Screen NEGATIVE Imaging Data My Impression: xr pelvis: no obvious fx/dislocation xr femur: proximal displaced fracture noted xr chest: Multiple areas of hardware from prior surgical intervention, no obvious rib fracture, no pneumothorax, no cm, no focal consolidation Radiologist's Impression: Femur X-Ray 04/07/22 00:00 INTRAOPERATIVE RADIOGRAPHS CLINICAL HISTORY: Open reduction and internal fixation of the right femur. Fluoroscopy time: 102 seconds. FINDINGS: 6 spot fluoroscopic views of the right femur are correlated with radiographs dated 04/07/2022. Intertrochanteric and intramedullary nails have been placed transfixing a femoral shaft fracture. Near-anatomic alignment is restored. 2 cortical lag screws transfix the distal end of the intramedullary no te. The orthopedic hardware appears intact. IMPRESSION: Intraoperative images from open reduction and internal fixation of a right femoral fracture as above. Electronically signed by: Samir Addison M.D. 04/07/2022 10:24 PM ECG Data Attestation: I personally reviewed and interpreted this ECG as follows: Indication: + other Rate (beats per minute): 74 Rhythm: + normal sinus ECG Intervals/blocks: + Normal QRS and + Normal QT ECG Watkins: + Normal ECG ST segments: + Nonspecific ST abnormalities MDM Narrative An order was placed for continuous cardiac monitoring. The monitor shows a rate of _92__ with rhythm. This is a 61-year-old female brought in by EMS after a fall. Patient complaining of right leg pain. No antiplatelet or anticoagulation therapy. She denies any other concern for injury, no other evidence of trauma on physical exam. Patient noted to have obvious deformity to the proximal right lower extremity and on x-ray imaging was found to have a subtrochanteric femur fracture with displacement. Patient placed in a Jarad traction splint. Labs are drawn and sent. Patient with a history of hyponatremia however sodium this evening was reassuring. Patient was given gentle IV fluid rehydration and several doses of pain medication. Case discussed with on-call orthopedics and then with hospitalist for additional evaluation and management. At this time I have low suspicion for any additional occult traumatic injury. Patient hemodynamically stable in the emergency room. Impression & Plan Femur fracture, right, Hyponatremia, COPD (chronic obstructive pulmonary disease), Fall Discharge Plan Visit Data Chief Complaint: Fall Stated Complaint: FALL/rt LEG INJURY ED Provider: Jacqueline Aponte Discharge Problem: Femur fracture, right, Hyponatremia, COPD (chronic obstructive pulmonary disease), Fall Patient Disposition: Admitted As Inpatient Discharge Instructions Interventions: ED Discharge Assessment Last Done: 04/07/22 06:15
--- NOTE | 2022-04-07 04:12 | History & Physical Report ---
Date of Service April 07, 2022 Assessment & Plan (1) Closed displaced oblique fracture of shaft of right femur: Plan: Due to mechanical fall on 04/06, confirmed by XR. - Ortho consulted ([facility]) - appreciate recs - NPO pending Ortho evaluation - maintain traction brace and strictly non-weightbearing - s/p Fentanyl 200mcg and Tylenol 1g in ED; continue with graduated PRN regimen: Morphine 2mg, Morphine 4mg, Dilaudid 0.5mg - hold home PO medications for now - hold DVT ppx for possible surgical intervention (2) Adrenal insufficiency: Plan: Chronic. Per our previous records patient had failed ACTH stim testing and had diagnosis confirmed. May have been due to ?previous steroid use. Patient takes Hydrocortisone 20mg QAM and 10mg QHS. - initiate stress dose steroids for now, while NPO and with possible surgical intervention pending: Hydrocortisone 20mg IV Q8H - BSG ACHS checks with increased dose (3) Hyponatremia: Plan: Na 130 here which appears to be chronic baseline. Likely due to beer potomania as well as poor solute intake and possibly component of adrenal insufficiency although patient has reportedly been taking daily Hydrocortisone. Patient currently asymptomatic in this regard. - counseled on alcohol cessation - seizure precautions - started on NSS @100cc/hr in ED - can maintain maintenance isotonic fluids while NPO - re-check BMP later this morning and again at noon to ensure stability (4) Frequent falls: Plan: Chronic problem, with significant concern for the patient to return home and/or live alone, given recurrent falls, several previous fractures, and current significant displaced femoral fracture. - CM consulted - hold on PT/OT evals pending Ortho evaluation (5) History of alcohol abuse: Plan: Reports 2-3 cans of beer per day but has a chronic severe alcohol abuse history. BAL negative on presentation to ED. No symptoms of withdrawal currently and no h/o DTs/hallucinations/seizures. \ - AWSS protocol with PRN Ativan - Thiamine 100mg IV daily and Folate 1mg IV daily, while NPO (6) Protein calorie malnutrition: Plan: Chronic, 2/2 to chronic alcohol abuse and overall difficulty caring for herself. - CM consulted as stated above - consider dietary consult once patient can re-start diet (7) Osteoporosis: Plan: Chronic, although patient denies previous DEXA evaluation and I am unable to locate this in our records. - hold Alendronate while NPO - recommend DEXA as outpatient - per PCP (8) Pancreatic insufficiency: Plan: Chronic. - hold Creon while NPO (9) Hyperlipidemia: Plan: Chronic. - hold Pravastatin while NPO (10) COPD (chronic obstructive pulmonary disease): Plan: Chronic. Without supplemental O2 at home although currently requiring 2L NC, which is likely a function of pain and narcotic medication requirements. - PRN DuoNebs, continue home inhaler - O2 as needed to maintain SpO2 88-92%, wean as tolerated (11) GERD (gastroesophageal reflux disease): Plan: Chronic. - Protonix IV while NPO Plan FEN/GI: NPO, NSS @100cc/hr DVT Prophylaxis: hold prophylaxis due to possible surgical intervention Code Status: full code Disposition: med/surg, appreciate CM input to help formulate safe discharge plan History of Present Illness Chief Complaint: fall Primary Care Provider: Darian Almazan John Oden is a 61yo female with PMHx that includes alcohol use disorder, tobacco use disorder, osteoporosis with h/o multiple fractures, recurrent falls, chronic hyponatremia, adrenal insufficiency, pancreatic insufficiency, COPD (no home O2), arthritis, HTN, HLD, iron deficiency, GERD, and h/o GI bleed. She presented to [facility] ED on 04/07 after a mechanical fall at home - tripped over her dog's bed while using a walker and fell onto her right side - with immediate onset of 10/10 right upper leg pain and a notable right upper leg deformity. Denies head trauma or LOC. Patient reports drinking 2-3 cans of beer per day and says she has recently been cutting down, but would not tell me how much she previously was drinking. Denies h/o severe withdrawal/DTs/hallucinations/seizures. Patient also smokes 2-3 cigarettes per day. Denies other drug use. The patient lives at home alone and, as stated above, has had recurrent falls with several resultant fractures and ambulatory dysfunction. In the ED the patient was afebrile and hemodynamically stable on 2L NC. Labs significant for Na 130 (~chronic baseline). CBC and CMP/Mg otherwise WNL. BAL negative. Pelvis/Femur XR showing acute displaced right femoral fracture. Patient received total of Fentanyl 200mcg, Tylenol 1g IV, and Morphine 4mg IV in the ED for right thigh pain, which has led to only mild improvement in severe pain. Was also started on NSS @125cc/hr. ED provider spoke with [facility] (Dr. Faye) who have seen the patient in the past for previous fractures. Patient will remain NPO pending full Ortho evaluation in the morning. Was also placed in traction brace. Allergies Allergy/AdvReac Type Severity Reaction Status Date / Time Penicillins Allergy Intermediate Rash Verified 10/23/21 18:43 Home Medications Medication Instructions Recorded Confirmed Type cholecalciferol (vitamin D3) 50 2,000 mcg PO DAILY 06/19/19 10/23/21 History mcg (2,000 unit) capsule (Vitamin D3) folic acid 1 mg tablet 1 mg PO DAILY 06/19/19 10/23/21 History pravastatin 10 mg tablet 10 mg PO DAILY 06/19/19 10/23/21 History alendronate 70 mg tablet 70 mg PO WK 02/24/21 10/23/21 History ferrous sulfate 325 mg (65 mg 325 mg PO BID 02/24/21 10/23/21 History iron) tablet fluticasone propionate 50 2 spray intranasal DAILY 02/24/21 10/23/21 History mcg/actuation nasal spray,suspension pantoprazole 20 mg tablet,delayed 20 mg PO DAILY 02/24/21 10/23/21 History release potassium chloride 10 mEq 20 meq PO BID 02/24/21 10/23/21 History capsule,extended release [id number] 1 cap PO AC #90 caps 03/08/21 10/23/21 Rx 36,000-114,000-180,000 unit capsule,delay rel (Creon) fluticasone propionate 110 1 inh inhalation BID 10/23/21 10/23/21 History mcg/actuation HFA aerosol inhaler (Flovent HFA) ipratropium 20 mcg-albuterol 100 1 puff inhalation BID 10/23/21 10/23/21 History mcg/actuation mist for inhalation (Combivent Respimat) diphenhydramine HCl 25 mg capsule 25 mg PO 4XDQ4H PRN itching #30 10/30/21 Rx (Benadryl) caps hydrocortisone 10 mg tablet 10 mg PO DAILY@1500 #30 tabs 10/30/21 Rx (Cortef) hydrocortisone 10 mg tablet 20 mg PO QAM #30 tabs 10/30/21 Rx (Cortef) polyethylene glycol 3350 17 gram 17 g PO DAILY PRN constipation #30 10/30/21 Rx oral powder packet (Miralax) ea thiamine HCl (vitamin B1) 100 mg 100 mg PO DAILY #30 tabs 10/30/21 Rx tablet Past Med/Surg History Medical History COPD (chronic obstructive pulmonary disease) GERD (gastroesophageal reflux disease) History of alcohol abuse Hyperlipidemia Hypokalemia Hyponatremia Hypotension Osteoporosis Protein calorie malnutrition Rheumatoid arthritis Surgical History S/P section Family History Other No significant family history Social History Smoking Status: Current every day smoker Cigarettes Per Day: 1-2/day; Second Hand Exposure: Yes; Do You Dip or Chew Tobacco: No; Tobacco Cessation Education Requested by Patient: No Hx Alcohol Use: Yes Alcohol type: beer Hx Substance Use: Yes Preferred Language: Japanese Communication Ability: Effective Hand Finisher Required: No Beliefs That Will Affect Care: None marital status: Life Partner Current Living Situation: Significant Other Current Living Situation Comment: lives with boyfriend current occupational status: unemployed Other Information That Helps Us Care for You: No Feels Safe at Home: Yes Safety Concerns: Feels Safe At This Time Assistive Devices: Denture - Upper, Denture - Lower, Glasses and Walker Review of Systems Review of Systems: All systems reviewed & are unremarkable except as noted in HPI & below Physical Exam Physical Exam: General: A&Ox3. NAD. Cooperative. HEENT: Atraumatic, normocephalic. Pulm: CTAB A&P. -wheezes, -rales, -rhonchi. Symmetrical chest rise. No increase work of breathing. No respiratory distress. Cardiac: RRR, -mrg. Radial pulses intact and symmetrical. No LE edema. Abdominal: soft, non-tender, non-distended, BS x 4 Right LE: traction brace in place, with anterior upper thigh deformity, without break of skin Results & Data Results & Data ([facility]) Vital Signs (Past 12 Hours) Vital Signs Temp Pulse Pulse Resp BP BP Pulse Ox 04/07/22 03:35 73 18 105/70 95 04/07/22 02:34 77 16 111/67 97 04/07/22 01:08 36.6 C 81 18 123/77 94 O2 Del Method O2 Flow Rate 04/07/22 03:35 Nasal Cannula 2 04/07/22 02:34 Nasal Cannula 04/07/22 01:08 Room Air CBC w Diff Results Results CBC w Diff Results: RBC 4.07 M/uL (3.93-5.22) 04/07/22 WBC 7.62 K/ul (4.8-10.8) 04/07/22 Hgb 13.0 g/dl (12.0-16.0) 04/07/22 Hct 37.2 % (34.1-44.9) 04/07/22 MCV 91.4 fL (80.0-100.0) 04/07/22 MCH 31.9 pg (25.0-34.0) 04/07/22 MCHC 34.9 g/dL (32.0-36.0) 04/07/22 RDW Standard Deviation 46.2 fL (36.4-46.3) 04/07/22 RDW Coefficient of Variation 13.7 % (11.5-14.5) 04/07/22 Plt Count 209 K/uL (130-400) 04/07/22 MPV 8.7 fL (9.4-12.3) L 04/07/22 Neutrophils (%) (Auto) 78.2 % 04/07/22 Lymphocytes (%) (Auto) 11.5 % 04/07/22 Monocytes # (Auto) 0.60 K/uL (0.24-0.82) 04/07/22 Eosinophils # (Auto) 0.10 K/uL (0-0.50) 04/07/22 Immature Granulocyte % (Auto) 0.7 % 04/07/22 Neutrophils # (Auto) 5.96 K/uL (1.4-6.5) 04/07/22 Lymphocytes # (Auto) 0.88 K/uL (1.2-3.4) L 04/07/22 Monocytes # (Auto) 0.60 K/uL (0.24-0.82) 04/07/22 Eosinophils # (Auto) 0.10 K/uL (0-0.50) 04/07/22 Basophils # (Auto) 0.03 K/uL (0-0.2) 04/07/22 Immature Granulocyte # (Auto) 0.05 K/uL (0.00-0.02) H 04/07 Red Blood Cell Morphology Unremarkable 10/22/19 Chemistry Results CMP Results: Na 130 mmol/L (136-145) L 04/07/22 K 3.3 mmol/L (3.5-5.1) L 04/07/22 Cl 101 mmol/L (98-107) 04/07/22 CO2 24 mmol/L (21-32) 04/07/22 Anion Gap 5 (3-11) 04/07/22 BUN 5 mg/dl (6-23) L 04/07/22 Creatinine 0.36 mg/dl (0.6-1.2) L 04/07/22 Estimated GFR ( Amer) 135.8 ml/min 04/07/22 Estimated GFR (Non-Af Amer) 117.2 ml/min 04/07/22 BUN/Creatinine Ratio 15.6 (10-20) 04/07/22 Glu 110 mg/dl (70-99(Fasting)) H 04/07/22 Ca 7.9 mg/dl (8.5-10.1) L 04/07/22 Phosphorus Level 3.2 mg/dl (2.5-4.9) 10/27/21 Total Bilirubin 0.4 mg/dl (0.2-1.0) 04/07/22 Direct Bilirubin 0.1 mg/dl (0-0.2) 04/29/17 AST 21 U/L (13-39) 04/07/22 ALT 9 U/L (7-52) 04/07/22 Alkaline Phosphatase 79 U/L (34-104) 04/07/22 TP 6.0 gm/dl (6.0-8.3) 04/07/22 Albumin 3.5 gm/dl (3.4-5.0) 04/07/22 Globulin 2.5 gm/dl (2.5-4.0) 04/07/22 Albumin/Globulin Ratio 1.4 (0.9-2) 11/13/22 Coag Studies Results Coagulation Results: PT 11.1 Seconds (9.0-12.0) 04/07/22 PTT 35.6 Seconds (21.0-31.0) H 10/23/19 INR 1.0 (0.9-1.1) 04/07/22 Supervising Physician Co-Signing Physician Notes Attending addendum: I have physically seen this patient, have supervised the medical residents activities, and agree with the H&P unless as otherwise noted. Assessment and Plan: Closed displaced oblique fracture of right femoral shaft- NPO Orthopedic surgery consult Acetaminophen 650 mg p.o. every 6 hours. Mild pain or fever Morphine sulfate 2 mg IV every 3 hours as needed moderate pain Dilaudid 0.5 mg IV every 3 hours as needed severe pain Adrenal insufficiency- Hold oral hydrocortisone 20 mg every morning and [address] on hydrocortisone 20 mg IV every 8 hours Hyponatremia- Chronic issue Sodium 130 is around her baseline On NSS at 100 mils per hour and follow serially Frequent falls- As noted previously, patient is at serious risk of living by himself, and ask social services aide to become involved Alcohol abuse history Still drinks 2 to 3 cans of beer per day JONNATHAN S protocol 500 mg IV daily and folate 1 mg IV daily while n.p.o. then change to p.o. Remaining orders and notations as noted Resident Activity Tracking Resident Involvement: Resident Care Provided Care Provided: Adult Hospital Medicine
[2022-04-07] MEDS ORDERED: MoRPHine SULFATE 4 MG/ML 1 ML CARP\\VIAL IV STA (04:25)
[2022-04-07] MEDS ORDERED: Ativan IV Alcohol Withdrawal--Active Protocol IV PRN (06:35)
[2022-04-07] MEDS ORDERED: DEXTROSE 50% 50 ML SYRINGE IV PRN (06:35)
[2022-04-07] MEDS ORDERED: LORazepam 2 MG in SYRINGE 0 ML IV PRN (06:35)
[2022-04-07] MEDS ORDERED: GLUCOSE 10 TAB/TUBE PO PRN (06:35)
[2022-04-07] MEDS ORDERED: GLUCOSE 40% GEL 15 GM TUBE PO PRN (06:35)
[2022-04-07] MEDS ORDERED: HYDROCORTISONE SOD SUCCINATE 100 MG/2 ML VIAL IV SCH (06:35)
[2022-04-07] MEDS ORDERED: GLUCAGON FOR INJ 1 MG VIAL SQ PRN (06:35)
[2022-04-07] MEDS ORDERED: LORazepam 1 MG in SYRINGE 0 ML IV PRN (06:35)
[2022-04-07] MEDS ORDERED: CARBOHYDRATES FOR HYPOGLYCEMIA PO PRN (06:35)
[2022-04-07] MEDS ORDERED: MoRPHine SULFATE 2 MG/ML CARP IV PRN (06:35)
[2022-04-07] MEDS ORDERED: HYDROmorphone INJ 0.5 MG/0.5 ML SYR IV PRN (06:35)
[2022-04-07] MEDS ORDERED: LORazepam 3 MG in SYRINGE 0 ML IV PRN (06:35)
[2022-04-07] MEDS ORDERED: HYDROCORTISONE SOD 20 MG in SYRINGE 0 ML IV SCH (07:00)
--- NOTE | 2022-04-07 07:31 | Anesthesiology Consultation ---
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 History Surgery Operation Date: 04/07/22 10:00 Proposed Procedures p Intramedullary Damion Femur(Right) - Dane Faye DO Height/Weight Height: 5 ft 2 in Weight: 61.4 kg Allergies Allergy/AdvReac Type Severity Reaction Status Date / Time Penicillins Allergy Intermediate Rash Verified 10/23/21 18:43 Medications Home Medications Medication Instructions Recorded Confirmed Last Taken cholecalciferol (vitamin D3) 50 2,000 mcg PO DAILY 06/19/19 10/23/21 Unknown mcg (2,000 unit) capsule (Vitamin D3) folic acid 1 mg tablet 1 mg PO DAILY 06/19/19 10/23/21 Unknown pravastatin 10 mg tablet 10 mg PO DAILY 06/19/19 10/23/21 Unknown alendronate 70 mg tablet 70 mg PO WK 02/24/21 10/23/21 Unknown ferrous sulfate 325 mg (65 mg 325 mg PO BID 02/24/21 10/23/21 Unknown iron) tablet fluticasone propionate 50 2 spray intranasal DAILY 02/24/21 10/23/21 Unknown mcg/actuation nasal spray,suspension pantoprazole 20 mg tablet,delayed 20 mg PO DAILY 02/24/21 10/23/21 Unknown release potassium chloride 10 mEq 20 meq PO BID 02/24/21 10/23/21 Unknown capsule,extended release [id number]-atrsftvw-iwqievp 1 cap PO AC #90 caps 03/08/21 10/23/21 Unknown 36,000-114,000-180,000 unit capsule,delay rel (Creon) fluticasone propionate 110 1 inh inhalation BID 10/23/21 10/23/21 10/22/21 mcg/actuation HFA aerosol inhaler (Flovent HFA) ipratropium 20 mcg-albuterol 100 1 puff inhalation BID 10/23/21 10/23/21 10/22/21 mcg/actuation mist for inhalation (Combivent Respimat) diphenhydramine HCl 25 mg capsule 25 mg PO 4XDQ4H PRN itching #30 10/30/21 Unknown (Benadryl) caps hydrocortisone 10 mg tablet 10 mg PO DAILY@1500 #30 tabs 10/30/21 Unknown (Cortef) hydrocortisone 10 mg tablet 20 mg PO QAM #30 tabs 10/30/21 Unknown (Cortef) polyethylene glycol 3350 17 gram 17 g PO DAILY PRN constipation #30 10/30/21 Unknown oral powder packet (Miralax) ea thiamine HCl (vitamin B1) 100 mg 100 mg PO DAILY #30 tabs 10/30/21 Unknown tablet Active Medications Generic Name Dose Route Start Last Admin Trade Name Freq PRN Reason Stop Dose Admin Sodium Chloride 1,000 mls @ 100 mls/hr 04/07/22 01:45 04/07/22 02:06 Nss 1000ml IV 05/07/22 01:44 125 mls/hr .Q10H YOUNG Administration Past Medical History Medical History COPD (chronic obstructive pulmonary disease) GERD (gastroesophageal reflux disease) History of alcohol abuse Hyperlipidemia Hypokalemia Hyponatremia Hypotension Osteoporosis Protein calorie malnutrition Rheumatoid arthritis Past Family History Family History Other No significant family history Past Surgical History Surgical History S/P section Social History Smoking Status: Current every day smoker tobacco type: cigarettes Smoking cigarettes per day: 1-2/day Hx Alcohol Use: Yes Alcohol type: beer alcohol intake frequency: a few times a week Hx Substance Use: No substance use type: does not use Physical Exam Vital Signs Last Vital Signs Temp 97.7 F 04/07/22 06:54 Pulse 87 04/07/22 06:54 Resp 18 04/07/22 06:15 BP 160/87 H 04/07/22 06:54 Pulse Ox 95 04/07/22 06:54 O2 Del Method 04/07/22 06:54 O2 Flow Rate 2 04/07/22 06:54 Testing Laboratory Results 04/07/22 02:05 04/07/22 02:05 PT 11.1 Seconds (9.0-12.0) 04/07/22 02:05 INR 1.0 (0.9-1.1) 04/07/22 02:05 Blood Type B Positive 04/07/22 04:10 Antibody Screen NEGATIVE 04/07/22 04:10 Electrocardiogram Date: 04/07/22 Poor data quality, interpretation may be adversely affected Normal sinus rhythm Left axis deviation Low voltage QRS Septal infarct (cited on or before 23-OCT-2019) Abnormal ECG When compared with ECG of 30-OCT-2021 08:22, Premature ventricular complexes are no longer Present Criteria for Inferior infarct are no longer Present Nonspecific T wave abnormality no longer evident in Lateral leads QT has shortened
[2022-04-07] MEDS: MoRPHine SULFATE 4 MG/ML 1 ML CARP\\VIAL IV PRN ×2 (07:32→22:19)
[2022-04-07 08:11] LABS: BUN Creatinine Ratio 15.6 (10-20); Calcium 7.9 mg/dl (8.5-10.1); Creatinine Clr Calc Pharmacy 161.2 ml/min; Est GFR (African American) 141.2 ml/min; Est GFR (Non-African American) 121.8 ml/min; Potassium 3.7 mmol/L (3.5-5.1)
[2022-04-07] MEDS ORDERED: HYDROCORTISONE SOD 100 MG in SYRINGE 0 ML IV ONE (08:30)
[2022-04-07] MEDS ORDERED: THIAMINE HCL 100 MG in SYRINGE 9 ML IV SCH (09:00)
[2022-04-07] MEDS: FOLIC ACID 1 MG in SYRINGE 9.8 ML IV SCH (09:42)
[2022-04-07] MEDS: FLUTICASONE FUROATE 200MCG 14 PUFFS/INHALER INH SCH (09:42)
[2022-04-07] MEDS ORDERED: BUPIVACAINE 0.5 % 5 MG/1 ML PF 10ML VIAL ONE (09:46)
[2022-04-07] MEDS ORDERED: fentaNYL citrate 100 MCG/2 ML VIAL IV PRN (09:49)
[2022-04-07] MEDS ORDERED: ONDANSETRON INJ 2 MG/ML 2 ML VIAL IV PRN (09:49)
[2022-04-07] MEDS ORDERED: fentaNYL citrate 100 MCG/2 ML VIAL ONE (09:49)
[2022-04-07] MEDS ORDERED: ePHEDrine sulfate 50 MG/ML AMP IV PRN (09:49)
[2022-04-07] MEDS ORDERED: ATROPINE SULFATE 0.1 MG/ML 10ML SYR IV PRN (09:49)
[2022-04-07] MEDS ORDERED: MIDAZOLAM HCL 1 MG/ML 2ML VIAL ONE (09:49)
[2022-04-07] MEDS ORDERED: BUPIVACAINE 0.25% 30 ML VIAL ONE (09:50)
--- NOTE | 2022-04-07 10:21 | Orthopedic Consultation ---
Date of Consultation April 07, 2022 Assessment & Plan (1) Femur fracture, right: N.p.o. Remain in traction Nonweightbearing right lower extremity Bed rest Pain control Medical management Antibiotics on-call the OR Plan for right hip long cephalomedullary nail History of Present Illness Reason for Consultation: Right subtrochanteric femur fracture Attending Physician: Ras Laura MD History of Present Illness 61-year-old female presenting to [facility] emergency department after sustaining a ground-level fall onto her right hip. She noted immediate pain and deformity. She was unable to ambulate and was taken to the emergency department for evaluation. Upon evaluation emergency department radiographs were obtained demonstrating a displaced right subtrochanteric femur fracture. Patient was admitted to medical service and orthopedics was consulted for operative management. Patient does not complain of any other injuries at this time. Allergies Allergy/AdvReac Type Severity Reaction Status Date / Time Penicillins Allergy Intermediate Rash Verified 10/23/21 18:43 Home Medications Medication Instructions Recorded Confirmed Type cholecalciferol (vitamin D3) 50 2,000 mcg PO DAILY 06/19/19 10/23/21 History mcg (2,000 unit) capsule (Vitamin D3) folic acid 1 mg tablet 1 mg PO DAILY 06/19/19 10/23/21 History pravastatin 10 mg tablet 10 mg PO DAILY 06/19/19 10/23/21 History alendronate 70 mg tablet 70 mg PO WK 02/24/21 10/23/21 History ferrous sulfate 325 mg (65 mg 325 mg PO BID 02/24/21 10/23/21 History iron) tablet fluticasone propionate 50 2 spray intranasal DAILY 02/24/21 10/23/21 History mcg/actuation nasal spray,suspension pantoprazole 20 mg tablet,delayed 20 mg PO DAILY 02/24/21 10/23/21 History release potassium chloride 10 mEq 20 meq PO BID 02/24/21 10/23/21 History capsule,extended release [id number] 1 cap PO AC #90 caps 03/08/21 10/23/21 Rx 36,000-114,000-180,000 unit capsule,delay rel (Creon) fluticasone propionate 110 1 inh inhalation BID 10/23/21 10/23/21 History mcg/actuation HFA aerosol inhaler (Flovent HFA) ipratropium 20 mcg-albuterol 100 1 puff inhalation BID 10/23/21 10/23/21 History mcg/actuation mist for inhalation (Combivent Respimat) diphenhydramine HCl 25 mg capsule 25 mg PO 4XDQ4H PRN itching #30 10/30/21 Rx (Benadryl) caps hydrocortisone 10 mg tablet 10 mg PO DAILY@1500 #30 tabs 10/30/21 Rx (Cortef) hydrocortisone 10 mg tablet 20 mg PO QAM #30 tabs 10/30/21 Rx (Cortef) polyethylene glycol 3350 17 gram 17 g PO DAILY PRN constipation #30 10/30/21 Rx oral powder packet (Miralax) ea thiamine HCl (vitamin B1) 100 mg 100 mg PO DAILY #30 tabs 10/30/21 Rx tablet Patient History Medical History COPD (chronic obstructive pulmonary disease) GERD (gastroesophageal reflux disease) History of alcohol abuse Hyperlipidemia Hypokalemia Hyponatremia Hypotension Osteoporosis Protein calorie malnutrition Rheumatoid arthritis Surgical History S/P section Family History Other No significant family history Social History Smoking Status: Current every day smoker Cigarettes Per Day: 1-2/day; Second Hand Exposure: Yes; Hx Alcohol Use: Yes Alcohol type: beer Hx Substance Use: No Preferred Language: Gambian Communication Ability: Impaired Digital Community Manager Required: No Beliefs That Will Affect Care: None marital status: Life Partner Current Living Situation: Spouse Current Living Situation Comment: lives with boyfriend current occupational status: unemployed Feels Safe at Home: Yes Assistive Devices: Walker Physical Exam Physical Exam: General: Alert and oriented to person place and time Musculoskeletal: Right lower extremity -in hairpin traction -Thigh soft and compressible -Sensation intact to light touch femoral/saphenous/superficial peroneal nerve/deep peroneal nerve/tibial/sural nerve distributions -Fires tibialis anterior/extensor houses longus/gastrocsoleus complex -Palpable dorsalis pedis and posterior tibial pulses Results & Data ([facility]) Vital Signs (Past 12 Hours) Vital Signs Temp Pulse Pulse Resp BP BP Pulse Ox 04/07/22 08:19 36.6 C 108 H 16 171/92 H 94 04/07/22 06:54 36.5 C 87 160/87 H 95 04/07/22 06:15 81 18 125/99 97 04/07/22 04:31 84 16 131/86 98 04/07/22 03:35 73 18 105/70 95 04/07/22 02:34 77 16 111/67 97 04/07/22 01:08 36.6 C 81 18 123/77 94 O2 Del Method O2 Flow Rate 04/07/22 08:19 Nasal Cannula 2 04/07/22 06:54 Nasal Cannula 2 04/07/22 06:15 Nasal Cannula 2 04/07/22 04:31 Nasal Cannula 2 04/07/22 03:35 Nasal Cannula 2 04/07/22 02:34 Nasal Cannula 04/07/22 01:08 Room Air Diagnostic Findings Radiographs of the right femur demonstrate a displaced right subtrochanteric femur fracture.
--- NOTE | 2022-04-07 10:22 | History & Physical Bridge Note ---
Date of Service April 07, 2022 History & Physical Bridge Note I have examined the patient, reviewed the History & Physical and in the interval since the performance of the History & Physical I have noted the following changes of clinical significance: no changes noted. Met with the patient we had a lengthy discussion regarding risk benefits of right hip cephalomedullary nail with possible open reduction for her right subtrochanteric femur fracture. There is risk include but are not limited to: Infection, neurovascular injury, DVT, nonunion, malunion, hardware failure and need for future surgery. After reviewing these she elected proceed with surgical intervention and written consent was obtained.
[2022-04-07] MEDS ORDERED: ALBUMIN HUMAN 5% 12.5 GM/250 ML VIAL IV ONE (10:41)
[2022-04-07] MEDS ORDERED: LIDOCAINE 2% MPF LOCAL 5 ML VIAL INFIL ONE (10:53)
[2022-04-07] MEDS ORDERED: PROPOFOL IV EMULSION 10 MG/ML 20 ML VIAL IV ONE (10:53)
[2022-04-07] MEDS ORDERED: ceFAZolin 330 MG/ML 1 GM VIAL ONE (10:53)
[2022-04-07] MEDS ORDERED: PANTOprazole 40 MG in SYRINGE 0 ML IV SCH (11:00)
--- NOTE | 2022-04-07 11:23 | Electrocardiogram Report ---
Test Reason : Blood Pressure : / mmHG Vent. Rate : 074 BPM Atrial Rate : 074 BPM P-R Int : 164 ms QRS Dur : 080 ms QT Int : 436 ms P-R-T Axes : 104 -31 009 degrees QTc Int : 483 ms Poor data quality, interpretation may be adversely affected Normal sinus rhythm Left axis deviation Low voltage QRS Old Septal infarct (cited on or before 23-OCT-2019) Abnormal ECG When compared with ECG of 30-OCT-2021 08:22, Premature ventricular complexes are no longer Present Criteria for Inferior infarct are no longer Present Confirmed by Naeem Jessica ([id number]) on 04/07/2022 11:22:51 AM Referred By: Darian Lopez Confirmed By:Naeem Jessica
--- NOTE | 2022-04-07 11:30 | History & Physical Bridge Note ---
Date of Service April 07, 2022 History & Physical Bridge Note I have examined the patient, reviewed the History & Physical and in the interval since the performance of the History & Physical I have noted the following changes of clinical significance: Patient seen on rounds this AM. Just admitted early this AM after sustaining a fall in her home resulting in an acute displaced R femur fx. She states she "got tripped up." She is yelling out in pain, a temporary splint with traction was placed in ED and is causing a great deal of discomfort. She denies cp or dyspnea. Chronic COPD with ongoing tobacco use, not O2 dependent. [facility] has been consulted for surgical correction of her acute fracture. Maintain pain control, will need PT/OT eval tomorrow to determine dc needs. In the interim, given her adrenal insufficiency on chronic Hydrocortisone, will stress dose in light of acute fx and surgery with 100mg IV x1 of Solu-Cortef followed by 50mg IV q12h for total of 200mg in 24 hr period and wean back down to her regular dose. Will also placed her on high-dose Thiamine in light of her alcohol abuse. She is ordered AWSS. Repeat labs ordered for tomorrow AM. Gentle IVF during perioperative period. Diet can be ordered following surgery. No further adjustments/changes to plan implemented by admitting team. Plan d/w Dr. Laura.
[2022-04-07] MEDS ORDERED: ePHEDrine sulfate 50 MG/ML SYR ONE (11:31)
[2022-04-07] MEDS ORDERED: PHENYLEPHRINE 100MCG/ML 5ML SYR ONE (11:31)
[2022-04-07] MEDS ORDERED: THIAMINE HCL 500 MG in SODIUM CHLORIDE 0.9% 50 ML IV STA (11:32)
[2022-04-07] MEDS ORDERED: ceFAZolin 2000MG 2,000 MG/15 ML SYR IV ONE (11:35)
[2022-04-07] MEDS ORDERED: VASOPRESSIN 20 UNIT/ML VIAL ONE (11:45)
[2022-04-07] MEDS ORDERED: ALBUT/IPRATROP 3MG/0.5MG NEB 3 ML VIAL NEB STA ×2 (12:13→12:16)
[2022-04-07] MEDS ORDERED: ALBUT/IPRATROP 3MG/0.5MG NEB 3 ML VIAL ONE (12:13)
--- NOTE | 2022-04-07 12:31 | Post Operative Brief Note ---
Immediate Post Op Note v1 Date of Surgery April 07, 2022 Pre & Post Diagnosis Operation Date: 04/07/22 10:00 Pre-Op Diagnosis: Displaced Right Femoral Fracture Post-Op Diagnosis: Displaced Right Femoral Fracture I identified the patient and participated in the time-out.: Yes Procedure Operation Date: 04/07/22 10:00 Actual Procedures p Intramedullary Damion Femur(Right) - Dane Faye DO Surgeon Dane Faye DO Hydrographical Technical Officer None Estimated Blood Loss 50 Findings Consistent with Post-Op Diagnosis See dictation Drains Garsia Catheter Complications None
--- NOTE | 2022-04-07 12:43 | Operative Report ---
Post Operative Report Pre & Post Diagnosis Operation Date: 04/07/22 10:00 Pre-Op Diagnosis: Displaced Right Femoral Fracture Post-Op Diagnosis: Displaced Right Femoral Fracture I identified the patient and participated in the time-out.: Yes Procedure Operation Date: 04/07/22 10:00 Actual Procedures p Intramedullary Damion Femur(Right) - Dane Faye DO Surgeon Dane Faye DO Home School Coordinator None Estimated Blood Loss 50 Findings Consistent with Post-Op Diagnosis See dictation Specimens None Complications None Indications 61-year-old female presenting after sustaining a ground-level fall at home. She noted immediate pain and deformity in her right lower extremity. She was taken to [facility] emergency department where radiographs were obtained demonstrating a displaced right proximal femoral shaft fracture. Patient was placed in traction and orthopedics was consulted for operative management. Preoperatively I met with the patient and we do lengthy discussion regarding risk benefits and potential complications of right hip cephalomedullary nail for her right femur fracture. Risk include but are not limited to: Infection, neurovascular injury, DVT, nonunion, malunion, hardware failure and need for future surgery. After reviewing these she elected proceed with surgical intervention and written consent was obtained. Description of Procedure Implants: Synthes TFNA 11 mm x 400 mm 130 degree right, 85 mm fenestrated screw, 5 mm x 46 mm starDrive locking screw, 5 mm x 54 mm starDrive locking screw Patient was appropriately identified in the preoperative holding area and the right lower extremity was marked. She received antibiotics per protocol. She was then taken back to the operative suite where she received spinal anesthesia. She was then transferred over to the manual fracture table. Using the assistance of a crutch as well as the fracture table her fracture was reduced to a satisfactory position. Position was confirmed using C arm fluoroscopy. The patient was then prepped and draped in the standard orthopedic fashion. Timeout was then performed. A 3 cm incision superior to the tip of the trochanter was then made through the skin subcutaneous tissue and gluteal fascia. A threaded guidewire was inserted through the tip of the trochanter advanced into the medullary canal. Its position was confirmed on AP and lateral fluoroscopy. A canal opening reamer was then used to open the proximal aspect of the femoral canal. Guidewire was then removed and a ball-tipped guidewire was then directed into the proximal segment and using the assistance of an awl it was then directed into the distal segment and advanced down to the physeal scar. Length of the guidewire was then measured and 400 mm implant was selected. The canal was then sequentially reamed starting with a size 8.5 mm reamer to a 12.5 mm reamer to accommodate a 11 mm nail. An 11 mm x 400 mm nail was then inserted over the ball-tipped guidewire and advanced distally. This provided excellent reduction of the fracture to near anatomic position. Nail was then advanced to a satisfactory position for the lag screw and proximal outrigger was attached. Ball-tipped guidewire was then removed. Incision was then made for the lag screw through the skin subcutaneous tissue and IT band fascia. Triple sleeve guide was then compressed down to bone and a threaded guidewire was then inserte d through the lateral cortex and advanced in the femoral head just beneath the subchondral bone and a center center position. Length was then measured and 85 mm was selected. Lateral cortical reamer was first used followed by a tapered reamer set to 85 mm. An 85 mm fenestrated screw was then inserted and locked statically at the proximal aspect. Proximal outrigger was then removed radiographs were then obtained demonstrating good position of the implant within the femoral head as well as reduction of the fracture. Attention was then turned to placement of the distal interlocks. Using the C arm for perfect [place] fluoroscopy incisions were made for the distal proximal static interlock as well as dynamic interlock. Drill was used to drill bicortically and screws were then measured and a 46 mm interlock was placed at the proximal static interlock and a 54 mm screw was placed in the dynamic interlock position. Final radiographs were then obtained demonstrating good reduction of the fracture. Wounds were then copiously irrigated using normal saline solution and 30 cc of quarter percent Marcaine was injected in the subcutaneous tissue. Deep fascia was then closed using 0 Vicryl. 2-0 Vicryl was used to close the subcutaneous tissue followed by shai for the skin. Sterile dressings of Xeroform 4 x 4 gauze and Tegaderms were then placed. The patient tolerated the procedure well was taken the recovery room in hemodynamically stable condition. I attest to the content of the Intraoperative Record and any orders documented therein. Any exceptions are noted below.
[2022-04-07] MEDS ORDERED: ACETAMINOPHEN 1000 MG/100 ML IV IV ONE (13:02)
--- NOTE | 2022-04-07 14:35 | XRay Report ---
XR femur RT 2V routine, XR pelvis 1-2V routine CLINICAL HISTORY: trauma TECHNIQUE: 2 radiographic views of the right femur and 2 views of the pelvis were obtained. Comparison: None available at the time of this dictation. FINDINGS: Spiral fracture of the proximal right femur is seen without intra-articular involvement. Degenerative changes are seen in the bilateral hip joints. Soft tissue swelling is seen in the right thigh. IMPRESSION: Spiral fracture of the proximal right femur with associated soft tissue swelling. ACT 112: Negative or not required by law. Electronically signed by: Jamaal Davenport M.D. 04/07/2022 2:33 PM
--- NOTE | 2022-04-07 14:49 | XRay Report ---
XR chest 1V portable CLINICAL HISTORY: hypoxia TECHNIQUE: Single frontal radiograph of the chest was obtained. Comparison: Comparison is made to chest radiograph 04/07/2022 FINDINGS: Bilateral clavicular hardware and left humeral medullary fady are noted. The cardiomediastinal silhoue tte is normal. Scarring is noted in the left midlung. No evidence of pleural effusion or pneumothorax . IMPRESSION: No acute chest disease. ACT 112: Negative or not required by law. Electronically signed by: Jamaal Davenport M.D. 04/07/2022 2:46 PM
--- NOTE | 2022-04-07 15:29 | Anesthesiology Progress Note ---
Date of Service April 07, 2022 Anesthesia Post Procedure Vital Signs Vital Signs: Temp Pulse Pulse Resp BP BP Pulse Ox 04/07/22 13:50 76 15 96/56 L 91 04/07/22 13:40 77 17 93/60 L 88 L 04/07/22 13:30 84 16 92/61 L 91 04/07/22 13:10 80 16 95/66 L 92 04/07/22 13:00 87 21 99/64 L 91 04/07/22 12:40 92 H 19 102/72 95 04/07/22 12:30 90 21 100/67 97 04/07/22 12:20 94 H 20 106/71 76 L 04/07/22 13:20 76 14 102/61 86 L 04/07/22 12:50 93 H 15 95/61 L 92 04/07/22 12:10 91 H 21 100/42 L 86 L 04/07/22 12:00 97.2 F L 90 16 101/68 87 L 04/07/22 08:19 97.9 F 108 H 16 171/92 H 94 04/07/22 06:54 97.7 F 87 160/87 H 95 04/07/22 06:15 81 18 125/99 97 04/07/22 04:31 84 16 131/86 98 04/07/22 03:35 73 18 105/70 95 04/07/22 02:34 77 16 111/67 97 04/07/22 01:08 97.9 F 81 18 123/77 94 O2 Del Method O2 Flow Rate 04/07/22 13:50 Oxymask 9 04/07/22 13:40 Oxymask 9 04/07/22 13:30 Oxymask 9 04/07/22 13:10 Oxymask 5 04/07/22 13:00 Oxymask 9 04/07/22 12:40 Oxymask 11 04/07/22 12:30 Non-rebreather 15 04/07/22 12:20 Non-rebreather 15 04/07/22 13:20 Oxymask 5 04/07/22 12:50 Oxymask 11 04/07/22 12:10 Non-rebreather 15 04/07/22 12:00 Oxymask 11 04/07/22 08:19 Nasal Cannula 2 04/07/22 06:54 Nasal Cannula 2 04/07/22 06:15 Nasal Cannula 2 04/07/22 04:31 Nasal Cannula 2 04/07/22 03:35 Nasal Cannula 2 04/07/22 02:34 Nasal Cannula 04/07/22 01:08 Room Air Pain Intensity Right Leg: Pain Intensity: 10 Head: Pain Intensity: 9 Transfer of Care Handoff Completed per policy Notes Mental Status: alert / awake / arousable and participated in evaluation Patient Amnestic to Procedure: Yes Nausea / Vomiting: adequately controlled Pain: adequately controlled Airway Patency, RR, SpO2: stable & adequate BP & HR: stable & adequate Hydration State: stable & adequate Neuraxial Anesthesia: was administered and sensory block is resolving Anesthetic Complications: no major complications apparent and Pt Satisfied with anesthetic care Notes: The patient had low O2 saturations in PACU despite having a face mask. The patient was given a duoneb treatment and given an incentive spirometer. The patient was able to get her O2 saturations in the upper 80s and low 90s, but she still needed a facemask. The patient was resting comfortably, and she did not show increased work of breathing. A CXR was ordered which was unremarkable. I spoke to the hospitalist, and I recommended the patient go to telemetry for closer observation. The patient was otherwise stable to be discharged from PACU.
[2022-04-07 17:53] LABS: Calcium 7.9 mg/dl (8.5-10.1); Creatinine Clr Calc Pharmacy 143.3 ml/min; Est GFR (African American) 135.8 ml/min; Est GFR (Non-African American) 117.2 ml/min; Potassium 3.3 mmol/L (3.5-5.1)
--- NOTE | 2022-04-07 18:19 | XRay Report ---
XR chest 1V portable CLINICAL HISTORY: trauma TECHNIQUE: Single frontal radiograph of the chest was obtained. Comparison: Comparison is made to chest radiograph 03/06/2021 FINDINGS: Orthopedic hardware is again seen. The cardiomediastinal silhouette is normal. The lungs are clear. N o evidence of pleural effusion or pneumothorax. Old healed rib fractures are noted bilaterally. Parti al visualization of deformity of the right humerus. IMPRESSION: No acute chest disease. ACT 112: Negative or not required by law. Electronically signed by: Jamaal Davenport M.D. 04/07/2022 6:17 PM
[2022-04-07] MEDS: ASPIRIN 81 MG ECTAB PO SCH (20:22)
[2022-04-07] MEDS: HYDROCORTISONE SOD 50 MG in SYRINGE 0 ML IV SCH (20:23)
[2022-04-07] MEDS: ceFAZolin 2000MG 2,000 MG/15 ML SYR IV SCH (21:00)
--- NOTE | 2022-04-07 22:25 | Fluoroscopy Report ---
INTRAOPERATIVE RADIOGRAPHS CLINICAL HISTORY: Open reduction and internal fixation of the right femur. Fluoroscopy time: 102 seconds. FINDINGS: 6 spot fluoroscopic views of the right femur are correlated with radiographs dated 04/07/20. Intertrochanteric and intramedullary nails have been placed transfixing a femoral shaft fracture. Near-anatomic alignment is restored. 2 cortical lag screws transfix the distal end of the intramedul shivam note. The orthopedic hardware appears intact. IMPRESSION: Intraoperative images from open reduction and internal fixation of a right femoral fractu re as above. Electronically signed by: Samir Addison M.D. 04/07/2022 10:24 PM
[2022-04-08] MEDS: SODIUM CHLORIDE 0.9% 1000ML 1,000 ML IV SCH ×2 (00:19→07:11)
[2022-04-08] MEDS ORDERED: HYDROmorphone INJ 0.5 MG/0.5 ML SYR IV STA (00:35)
[2022-04-08 02:44] LABS: Amphetamines+Metham, Urine Neg (Neg); Barbiturates, Urine Neg (Neg); Benzodiazepine, Urine Pos (Neg); Cocaine, Urine Neg (Neg); MDMA (Ecstacy), Urine Neg (Neg); Methadone, Urine Neg (Neg); Opiate, Urine Pos (Neg); Phencyclidine, Urine Neg (Neg)
--- NOTE | 2022-04-08 03:15 | Billing Data ---
Date of Service April 08, 2022 Coding Level of Care Code 75946 Initial Inpt Care Lvl 3
[2022-04-08] MEDS: ceFAZolin 2000MG 2,000 MG/15 ML SYR IV SCH (04:33)
[2022-04-08] MEDS: MoRPHine SULFATE 4 MG/ML 1 ML CARP\\VIAL IV PRN ×2 (04:33→11:54)
--- NOTE | 2022-04-08 07:30 | Orthopedic Progress Note ---
Date of Service April 08, 2022 Assessment & Plan (1) Femur fracture, right: Plan: POD #1 s/p Intramedullary Damion Femur(Right) pt/ot- partial weightbearing dvt proph with ANGELA/SCD/ASA Admission and Anticipated Discharge Date Admission Date: April 07, 2022 Supervising Physician Co-Signing Physician Notes Patient seen and examined, doing well. Notes pain control is much improved. Dressing clean dry and intact. Neurovascular intact on examination. At this point I think she is doing well I recommend continuing partial weightbearing using the assistance of a walker as well as physical therapy. No further orthopedic intervention at this time. Patient may follow-up as an outpatient in 2 weeks. Subjective POD #1 s/p Right Femur Intramedullary Damion Review of Systems Constitutional: no fever and no chills Respiratory: no cough and no dyspnea Cardiovascular: no chest pain, no dyspnea and no orthopnea Gastrointestinal: no abdominal pain, no nausea and no vomiting Physical Exam Physical Exam: Vital Signs Temp Pulse Pulse Resp BP Pulse Ox O2 Del Method 04/08/22 07:18 84 04/08/22 03:56 36.3 C L 85 20 117/73 94 Nasal Cannula 04/08/22 03:22 80 04/07/22 23:05 36.6 C 92 H 20 113/69 92 Nasal Cannula 04/07/22 23:34 Nasal Cannula 04/07/22 23:34 36.6 C 92 H 18 113/69 92 Nasal Cannula 04/07/22 20:27 37.1 C 100 H 20 107/57 L 95 Nasal Cannula 04/07/22 19:33 36.6 C 94 H 18 106/68 94 Nasal Cannula 04/07/22 18:30 98 H 16 98/68 L 96 Nasal Cannula 04/07/22 18:00 36.6 C 87 16 111/68 96 Nasal Cannula 04/07/22 17:25 36.1 C L 90 16 99/59 L 94 04/07/22 15:30 95 H 24 117/70 91 Oxymask 04/07/22 15:20 36.4 C L 78 16 109/62 92 Oxymask 04/07/22 15:00 77 11 L 101/59 L 92 Oxymask 04/07/22 14:50 77 12 107/60 90 Oxymask 04/07/22 14:30 88 15 99/63 L 91 Oxymask 04/07/22 14:20 77 15 93/54 L 89 L Oxymask 04/07/22 14:10 77 13 94/57 L 90 Oxymask 04/07/22 17:10 95 H 15 103/66 95 Nasal Cannula 04/07/22 16:40 90 13 115/65 95 Nasal Cannula 04/07/22 16:25 88 15 111/66 95 Oxymask 04/07/22 16:10 91 H 15 110/65 92 Oxymask 04/07/22 15:55 84 20 115/68 94 Oxymask 04/07/22 15:40 85 17 108/66 94 Oxymask 04/07/22 15:10 78 18 102/61 91 Oxymask 04/07/22 14:40 77 12 106/61 89 L Oxymask 04/07/22 14:00 80 14 95/57 L 89 L Oxymask 04/07/22 13:50 76 15 96/56 L 91 Oxymask 04/07/22 13:40 77 17 93/60 L 88 L Oxymask 04/07/22 13:30 84 16 92/61 L 91 Oxymask 04/07/22 13:10 80 16 95/66 L 92 Oxymask 04/07/22 13:00 87 21 99/64 L 91 Oxymask 04/07/22 12:40 92 H 19 102/72 95 Oxymask 04/07/22 12:30 90 21 100/67 97 Non-rebreather 04/07/22 12:20 94 H 20 106/71 76 L Non-rebreather 04/07/22 13:20 76 14 102/61 86 L Oxymask 04/07/22 12:50 93 H 15 95/61 L 92 Oxymask 04/07/22 12:10 91 H 21 100/42 L 86 L Non-rebreather 04/07/22 12:00 36.2 C L 90 16 101/68 87 L Oxymask 04/07/22 08:19 36.6 C 108 H 16 171/92 H 94 Nasal Cannula O2 Flow Rate 04/08/22 07:18 04/08/22 03:56 3 04/08/22 03:22 04/07/22 23:05 3 04/07/22 23:34 3 04/07/22 23:34 3 04/07/22 20:27 3 04/07/22 19:33 3 04/07/22 18:30 4 04/07/22 18:00 4 04/07/22 17:25 04/07/22 15:30 6 04/07/22 15:20 6 04/07/22 15:00 6 04/07/22 14:50 6 04/07/22 14:30 6 04/07/22 14:20 6 04/07/22 14:10 6 04/07/22 17:10 4 04/07/22 16:40 4 04/07/22 16:25 4 04/07/22 16:10 4 04/07/22 15:55 4 04/07/22 15:40 6 04/07/22 15:10 6 04/07/22 14:40 6 04/07/22 14:00 6 04/07/22 13:50 9 04/07/22 13:40 9 04/07/22 13:30 9 04/07/22 13:10 5 04/07/22 13:00 9 04/07/22 12:40 11 04/07/22 12:30 15 04/07/22 12:20 15 04/07/22 13:20 5 04/07/22 12:50 11 04/07/22 12:10 15 04/07/22 12:00 11 04/07/22 08:19 2 Intake and Output 04/07/22 04/08/22 04/08/22 22:59 06:59 14:59 Intake Total 1500 / 3500 1000 / 3500 Output Total 1150 / 1300 150 / 1300 Balance 350 / 2200 850 / 2200 Intake: IV 100 / 2100 1000 / 2100 Acetaminophen 1,000 mg In 100 100 / 100 ml @ 400 mls/h r IV NOW STA Rx#: [id number] Sodium Chlorid e 0.9% 1000ML 1, 1000 / 1000 000 ml @ 80 ml s/hr IV .[id number] [facility] Rx#:[id number] IV Perioperative 1400 / 1400 Output: Estimated Blood Loss 50 / 50 Urine Amount (Ca theter) 1100 / 1250 150 / 1250 Garsia/Indwelli ng 1100 / 1250 150 / 1250 Other: Weight 55.6 kg Weight Measureme nt Method Built in [facility] Musculoskeletal: Right Hip: dressing clean and dry, thigh soft. calf soft non- tender, DP +2. able to plantar/dosiflex ankle, sensation intact to light touch. Results & Data ([facility]) Vital Signs (Past 12 Hours) Vital Signs Temp Pulse Pulse Resp BP Pulse Ox O2 Del Method 04/08/22 07:18 84 04/08/22 03:56 36.3 C L 85 20 117/73 94 Nasal Cannula 04/08/22 03:22 80 04/07/22 23:05 36.6 C 92 H 20 113/69 92 Nasal Cannula 04/07/22 23:34 Nasal Cannula 04/07/22 23:34 36.6 C 92 H 18 113/69 92 Nasal Cannula 04/07/22 20:27 37.1 C 100 H 20 107/57 L 95 Nasal Cannula 04/07/22 19:33 36.6 C 94 H 18 106/68 94 Nasal Cannula O2 Flow Rate 04/08/22 07:18 04/08/22 03:56 3 04/08/22 03:22 04/07/22 23:05 3 04/07/22 23:34 3 04/07/22 23:34 3 04/07/22 20:27 3 04/07/22 19:33 3 Laboratory Results Laboratory Results WBC 7.62 K/ul (4.8-10.8) 04/07/22 02:05 RBC 4.07 M/uL (3.93-5.22) 04/07/22 02:05 Hgb 13.0 g/dl (12.0-16.0) 04/07/22 02:05 Hct 37.2 % (34.1-44.9) 04/07/22 02:05 MCV 91.4 fL (80.0-100.0) 04/07/22 02:05 MCH 31.9 pg (25.0-34.0) 04/07/22 02:05 MCHC 34.9 g/dL (32.0-36.0) 04/07/22 02:05 RDW Std Deviation 46.2 fL (36.4-46.3) 04/07/22 02:05 RDW Coeff of Elo 13.7 % (11.5-14.5) 04/07/22 02:05 Plt Count 209 K/uL (130-400) 04/07/22 02:05 MPV 8.7 fL (9.4-12.3) L 04/07/22 02:05 Immature Gran % (Auto) 0.7 % 04/07/22 02:05 Neut % (Auto) 78.2 % 04/07/22 02:05 Lymph % (Auto) 11.5 % 04/07/22 02:05 [place] % (Auto) 7.9 % 04/07/22 02:05 Eos % (Auto) 1.3 % 04/07/22 02:05 Baso % (Auto) 0.4 % 04/07/22 02:05 Neut # (Auto) 5.96 K/uL (1.4-6.5) 04/07/22 02:05 Lymph # (Auto) 0.88 K/uL (1.2-3.4) L 04/07/22 02:05 [place] # (Auto) 0.60 K/uL (0.24-0.82) 04/07/22 02:05 Eos # (Auto) 0.10 K/uL (0-0.50) 04/07/22 02:05 Baso # (Auto) 0.03 K/uL (0-0.2) 04/07/22 02:05 Immature Gran # (Auto) 0.05 K/uL (0.00-0.02) H 04/07/22 02:05 PT 11.1 Seconds (9.0-12.0) 04/07/22 02:05 INR 1.0 (0.9-1.1) 04/07/22 02:05 Sodium 130 mmol/L (136-145) L 04/07/22 17:09 Potassium 3.3 mmol/L (3.5-5.1) L 04/07/22 17:09 Chloride 101 mmol/L (98-107) 04/07/22 17:09 Carbon Dioxide 24 mmol/L (21-32) 04/07/22 17:09 Anion Gap 5 (3-11) 04/07/22 17:09 BUN 5 mg/dl (6-23) L 04/07/22 17:09 Creatinine 0.36 mg/dl (0.6-1.2) L 04/07/22 17:09 Est Cr Clr Drug Dosing 143.3 ml/min 04/07/22 17:09 Est GFR ( Amer) 135.8 ml/min 04/07/22 17:09 Est GFR (Non-Af Amer) 117.2 ml/min 04/07/22 17:09 BUN/Creatinine Ratio 15.6 (10-20) 04/07/22 07:39 Glucose 110 mg/dl (70-99(Fasting)) H 04/07/22 07:39 POC Glucose 203 mg/dl (70-99) H 04/07/22 18:08 Fasting Glucose 173 mg/dl (70-99) H 04/07/22 17:09 Calcium 7.9 mg/dl (8.5-10.1) L 04/07/22 17:09 Magnesium 1.7 mg/dl (1.7-2.4) 04/07/22 02:05 Total Bilirubin 0.4 mg/dl (0.2-1.0) 04/07/22 02:05 AST 21 U/L (13-39) 04/07/22 02:05 ALT 9 U/L (7-52) 04/07/22 02:05 Alkaline Phosphatase 79 U/L (34-104) 04/07/22 02:05 Total Protein 6.0 gm/dl (6.0-8.3) 04/07/22 02:05 Albumin 3.5 gm/dl (3.4-5.0) 04/07/22 02:05 Globulin 2.5 gm/dl (2.5-4.0) 04/07/22 02:05 Albumin/Globulin Ratio 1.4 (0.9-2) 04/07/22 02:05 Urine Opiates Screen Pos (Neg) H 04/08/22 01:06 Ur Methadone, Qual Neg (Neg) 04/08/22 01:06 Urine Barbiturates Neg (Neg) 04/08/22 01:06 Ur Phencyclidine (PCP) Neg (Neg) 04/08/22 01:06 U Amphetamin/Meth Scrn Neg (Neg) 04/08/22 01:06 MDMA (Ecstasy) Screen Neg (Neg) 04/08/22 01:06 U Benzodiazepines Scrn Pos (Neg) H 04/08/22 01:06 Ur Cocaine Metabolite Neg (Neg) 04/08/22 01:06 U Marijuana (THC) Screen Pos (Neg) H 04/08/22 01:06 Ethyl Alcohol mg/dL < 10.0 mg/dl (<10.0) 04/07/22 02:05 SARS-CoV-2, RNA, NAAT NEGATIVE (NEGATIVE) 04/07/22 02:11 Blood Type B Positive 04/07/22 04:10 Antibody Screen NEGATIVE 04/07/22 04:10 Impressions Femur X-Ray 04/07/22 01:35 XR femur RT 2V routine, XR pelvis 1-2V routine CLINICAL HISTORY: trauma TECHNIQUE: 2 radiographic views of the right femur and 2 views of the pelvis were obtained. Comparison: None available at the time of this dictation. FINDINGS: Spiral fracture of the proximal right femur is seen without intra-articular involvement. Degenerative changes are seen in the bilateral hip joints. Soft tissue swelling is seen in the right thigh. IMPRESSION: Spiral fracture of the proximal right femur with associated soft tissue swelling. ACT 112: Negative or not required by law. Electronically signed by: Jamaal Davenport M.D. 04/07/2022 2:33 PM Pelvis X-Ray 04/07/22 01:35 XR femur RT 2V routine, XR pelvis 1-2V routine CLINICAL HISTORY: trauma TECHNIQUE: 2 radiographic views of the right femur and 2 views of the pelvis were obtained. Comparison: None available at the time of this dictation. FINDINGS: Spiral fracture of the proximal right femur is seen without intra-articular involvement. Degenerative changes are seen in the bilateral hip joints. Soft tissue swelling is seen in the right thigh. IMPRESSION: Spiral fracture of the proximal right femur with associated soft tissue swelling. ACT 112: Negative or not required by law. Electronically signed by: Jamaal Davenoprt M.D. 04/07/2022 2:33 PM Chest X-Ray 04/07/22 14:27 XR chest 1V portable CLINICAL HISTORY: hypoxia TECHNIQUE: Single frontal radiograph of the chest was obtained. Comparison: Comparison is made to chest radiograph 04/07/2022 FINDINGS: Bilateral clavicular hardware and left humeral medullary damion are noted. The cardiomediastinal silhouette is normal. Scarring is noted in the left midlung. No evidence of pleural effusion or pneumothorax. IMPRESSION: No acute chest disease. ACT 112: Negative or not required by law. Electronically signed by: Jamaal Davenport M.D. 04/07/2022 2:46 PM
[2022-04-08] MEDS: ASPIRIN 81 MG ECTAB PO SCH ×2 (07:50→20:55)
[2022-04-08] MEDS: FLUTICASONE FUROATE 200MCG 14 PUFFS/INHALER INH SCH (07:51)
[2022-04-08] MEDS: FOLIC ACID 1 MG in SYRINGE 9.8 ML IV SCH (07:51)
[2022-04-08] MEDS: THIAMINE HCL 200 MG in SODIUM CHLORIDE 0.9% 50 ML IV SCH (07:52)
[2022-04-08] MEDS: HYDROCORTISONE SOD 50 MG in SYRINGE 0 ML IV SCH ×2 (07:52→16:04)
[2022-04-08 09:25] LABS: Hematocrit (blood only) 24.5 % (34.1-44.9); Hemoglobin 8.6 g/dl (12.0-16.0); Mean Corpuscular Hgb Conc 35.1 g/dL (32.0-36.0); Mean Corpuscular Volume 91.1 fL (80.0-100.0); Mean Platelet Volume 9.7 fL (9.4-12.3); Platelet Count 150 K/uL (130-400); RDW Coefficient of Variation 13.5 % (11.5-14.5); RDW Standard Deviation 44.9 fL (36.4-46.3); Red Blood Count 2.69 M/uL (3.93-5.22); White Blood Count 9.83 K/ul (4.8-10.8)
[2022-04-08 09:37] LABS: Basophils # (auto) 0.01 K/uL (0-0.2); Basophils % (auto) 0.1 %; Immature Granulocytes # (auto) 0.02 K/uL (0.00-0.02); Immature Granulocytes % (auto) 0.2 %; Lymphocytes # (auto) 0.91 K/uL (1.2-3.4); Lymphocytes % (auto) 9.3 %; Monocytes # (auto) 0.64 K/uL (0.24-0.82); Monocytes % (auto) 6.5 %; Neutrophils # (auto) 8.25 K/uL (1.4-6.5); Neutrophils % (auto) 83.9 %
[2022-04-08 09:42] LABS: BUN Creatinine Ratio 13.3 (10-20); Calcium 8.1 mg/dl (8.5-10.1); Creatinine Clr Calc Pharmacy 105.1 ml/min; Est GFR (African American) 126.2 ml/min; Est GFR (Non-African American) 108.9 ml/min; Magnesium 1.5 mg/dl (1.7-2.4); Potassium 3.5 mmol/L (3.5-5.1)
[2022-04-08] MEDS: PANTOprazole 40 MG TAB PO SCH (10:29)
[2022-04-08] MEDS: MAGNESIUM SULFATE / D5W 1 GM/100 ML BAG IV SCH ×2 (11:48→13:45)
[2022-04-08 12:22] LABS: Estimated Average Glucose 80 mg/dl; Hemoglobin A1C 4.4 % (4.5-5.6)
[2022-04-08] MEDS: ALBUT/IPRATROP 3MG/0.5MG NEB 3 ML VIAL NEB SCH ×2 (15:15→19:22)
--- NOTE | 2022-04-08 16:00 | Hospitalist Progress Note ---
Date of Service April 08, 2022 Assessment & Plan (1) Closed displaced oblique fracture of shaft of right femur: Plan: Due to mechanical fall on 04/06, confirmed by XR. - Ortho consulted ([facility]) - appreciate recs s/p IM nailing to R femur on 04/[address] Faye - Post operatively doing well, will change pain control regimen to APAP for mild pain, OxyIR 5mg PO q4 for mod pain and 10mg PO q4 for severe pain - ASA 81mg BID ordered for DVT ppx by ortho - I/S q2 while awake for atelectasis/pna prevention - PT/OT eval - Remove allen - Case management consult for dc planning (2) Adrenal insufficiency: Plan: Chronic. Per our previous records patient had failed ACTH stim testing and had diagnosis confirmed. May have been due to ?previous steroid use. Patient takes Hydrocortisone 20mg QAM and 10mg QHS. - initiate stress dose steroids: was given total of 200mg IV Solu-Cortef over 24 hours - Converted to Solu Cortef 50mg IV q8 and will slowly wean back to her regular home dose (3) Hyponatremia: Plan: Na 130 here which appears to be chronic baseline. Likely due to beer potomania as well as poor solute intake and possibly component of adrenal insufficiency although patient has reportedly been taking daily Hydrocortisone. Patient currently asymptomatic in this regard. - counseled on alcohol cessation - seizure precautions - stop fluids - Na remains at baseline 131 (4) Frequent falls: Plan: Chronic problem - PT/OT consulted, rehab recommended - CM looking into [facility] (5) History of alcohol abuse: Plan: Reports 2-3 cans of beer per day but has a chronic severe alcohol abuse history. BAL negative on presentation to ED. No symptoms of withdrawal currently and no h/o DTs/hallucinations/seizures. \ - AWSS protocol with PRN Ativan - High dose Thiamine 500mg IV x1 given on 04/07, changed to 200mg IV daily starting today - Can resume 100mg daily PO upon discharge (6) Protein calorie malnutrition: Plan: Chronic, 2/2 to chronic alcohol abuse and overall difficulty caring for herself. - CM consulted as stated above - consider dietary consult once patient can re-start diet (7) Osteoporosis: Plan: Chronic, although patient denies previous DEXA evaluation and I am unable to locate this in our records. - hold Alendronate while NPO - recommend DEXA as outpatient - per PCP (8) Pancreatic insufficiency: Plan: Chronic. - Resume Creon (9) Hyperlipidemia: Plan: Chronic. - Can resume statin (10) COPD (chronic obstructive pulmonary disease): Plan: Chronic. Without supplemental O2 at home - PRN DuoNebs, continue home inhaler - O2 as needed to maintain SpO2 88-92%, wean as tolerated, currently on room air (11) GERD (gastroesophageal reflux disease): Plan: Chronic. - Protonix 40mg daily Plan As above. Pt was transferred post operatively to tele d/t post op resp status, however, she is now on room air. Transfer back to med/surg unit. Medically stable for dc once accepted at rehab facility and auth received. Plan d/w Dr. Paez. Admission and Anticipated Discharge Date Admission Date: April 07, 2022 Subjective Patient was seen on daily rounds this morning. She is resting comfortably in bed, states that her right leg is sore but not pain is not overtly uncontrolled. She denies cp or dyspnea. She states she has a chronic cough. No n/v. Urinary catheter in place. Review of Systems Review of Systems: All systems reviewed and are unremarkable except as noted in HPI and below. Denies fever, chills, fatigue, headache, nasal congestion, sore throat, cough, chest pain, shortness of breath, palpitations, orthopnea, PND, abdominal pain, n/v/d, constipation, back pain, joint pain or swelling, easy bruising or bleeding, skin lesions or rashes. Physical Exam Physical Exam: GENERAL: 61 yo Well-developed, well-nourished WF. NAD. LUNGS: Diffuse expiratory wheezes appreciated throughout. CARDIOVASCULAR: Regular rate and rhythm. ABDOMEN: Soft, non-tender and non-distended. BS normoactive x 4 quad. EXTREMITIES: No edema. Non-tender. Peripheral pulses +2/4. NEUROLOGIC: A&O x3. PSYCHIATRIC: Cooperative. Appropriate mood and affect. SKIN: Warm, dry, intact. Incisions to R leg are dressed and dry. Results & Data [facility] ([facility]) Vital Signs (Past 12 Hours) Vital Signs Temp Pulse Pulse Resp BP Pulse Ox O2 Del Method 04/08/22 15:15 99 H 19 90 Room Air 04/08/22 15:14 80 04/08/22 15:06 37.0 C 97 H 20 104/65 93 04/08/22 10:59 36.6 C 96 H 20 112/69 90 04/08/22 07:45 36.6 C 88 20 136/72 94 04/08/22 07:18 84 04/08/22 03:56 36.3 C L 85 20 117/73 94 Nasal Cannula O2 Flow Rate 04/08/22 15:15 04/08/22 15:14 04/08/22 15:06 04/08/22 10:59 04/08/22 07:45 04/08/22 07:18 04/08/22 03:56 3 Laboratory Results 04/08/22 08:25 04/08/22 08:25 PG Care Time/CCT Total # of Minutes Spent Total Time Spent with Patient: Total time spent is greater than 50% in coordination of care (as documented) at patient's floor/unit and/or counseling patient: Coding Level of Care Code 77502 Subseq Hosp Care Lvl 2 Diagnoses Closed displaced oblique fracture of shaft of right femur S72.331A Adrenal insufficiency E27.40 Hyponatremia E87.1 Frequent falls R29.6 History of alcohol abuse F10.11 Protein calorie malnutrition E46 Osteoporosis M81.0 Pancreatic insufficiency K86.89 Hyperlipidemia E78.5 COPD (chronic obstructive pulmonary disease) J44.9 GERD (gastroesophageal reflux disease) K21.9
[2022-04-08] MEDS ORDERED: oxyCODONE HCL IR 5 MG TAB (IMMEDIATE RELEASE) PO PRN (16:36)
[2022-04-08] MEDS: FERROUS SULFATE 325 MG TAB PO SCH (17:41)
[2022-04-09] MEDS: HYDROCORTISONE SOD 50 MG in SYRINGE 0 ML IV SCH ×3 (02:10→20:03)
[2022-04-09] MEDS: ALBUT/IPRATROP 3MG/0.5MG NEB 3 ML VIAL NEB SCH ×2 (06:55→10:31)
[2022-04-09] MEDS: THIAMINE HCL 200 MG in SODIUM CHLORIDE 0.9% 50 ML IV SCH (08:21)
[2022-04-09] MEDS: FERROUS SULFATE 325 MG TAB PO SCH ×2 (08:22→16:03)
[2022-04-09] MEDS: PANCREAZE (LIPASE 10,500U) CAP PO SCH (08:22)
[2022-04-09] MEDS: ASPIRIN 81 MG ECTAB PO SCH ×2 (08:22→20:02)
[2022-04-09] MEDS: PANTOprazole 40 MG TAB PO SCH (08:23)
[2022-04-09] MEDS: FOLIC ACID 1 MG TAB PO SCH (08:23)
[2022-04-09] MEDS: FLUTICASONE FUROATE 200MCG 14 PUFFS/INHALER INH SCH (08:23)
[2022-04-09] MEDS: oxyCODONE HCL IR 5 MG TAB (IMMEDIATE RELEASE) PO PRN ×2 (08:24→19:55)
[2022-04-09 08:43] LABS: Immature Granulocytes # (auto) 0.05 K/uL (0.00-0.02); Immature Granulocytes % (auto) 0.7 %; Lymphocytes # (auto) 0.65 K/uL (1.2-3.4); Lymphocytes % (auto) 8.6 %; Mean Corpuscular Hemoglobin 32.1 pg (25.0-34.0); Mean Corpuscular Hgb Conc 34.8 g/dL (32.0-36.0); Mean Corpuscular Volume 92.4 fL (80.0-100.0); Mean Platelet Volume 9.4 fL (9.4-12.3); Monocytes # (auto) 0.45 K/uL (0.24-0.82); Neutrophils # (auto) 6.41 K/uL (1.4-6.5); Neutrophils % (auto) 84.7 %; Platelet Count 146 K/uL (130-400); RDW Coefficient of Variation 13.7 % (11.5-14.5); RDW Standard Deviation 46.7 fL (36.4-46.3); Red Blood Count 2.49 M/uL (3.93-5.22); White Blood Count 7.56 K/ul (4.8-10.8)
--- NOTE | 2022-04-09 13:25 | Hospitalist Progress Note ---
Date of Service April 09, 2022 Assessment & Plan (1) Closed displaced oblique fracture of shaft of right femur: Plan: Due to mechanical fall on 04/06, confirmed by XR. - Ortho consulted ([facility]) - appreciate recs s/p IM nailing to R femur on 04/[address] Faye - Post operatively doing well, will change pain control regimen to APAP for mild pain, OxyIR 5mg PO q4 for mod pain and 10mg PO q4 for severe pain - ASA 81mg BID ordered for DVT ppx by ortho - I/S q2 while awake for atelectasis/pna prevention - PT/OT eval - Remove allen 04/09, told pt that it needs to come out today, she reluctantly agreed - Case management consult for dc planning (2) Postoperative anemia due to acute blood loss: Plan: - Pt has chronic anemia with baseline hgb 8-10 - Preop hgb of 13 recorded on labs 04/07 with a drop down to 8.6 on 04/08 and 8.0 today - Currently on FeSO4 BID at home which has been continued - Will give a dose of IV Venofer 300mg x1 today - Repeat CBC in AM (3) Adrenal insufficiency: Plan: Chronic. Per our previous records patient had failed ACTH stim testing and had diagnosis confirmed. May have been due to ?previous steroid use. Patient takes Hydrocortisone 20mg QAM and 10mg QHS. - initiate stress dose steroids: was given total of 200mg IV Solu-Cortef over 24 hours - Converted to Solu Cortef 50mg IV q8 x 2days, reduce frequency to q12 x1 day and then q day x1 day then resume home dose (4) Hyponatremia: Plan: Na 130 here which appears to be chronic baseline. Likely due to beer potomania as well as poor solute intake and possibly component of adrenal insufficiency although patient has reportedly been taking daily Hydrocortisone. Patient c urrently asymptomatic in this regard. - counseled on alcohol cessation - seizure precautions - stop fluids - Na remains at baseline 131 (5) Frequent falls: Plan: Chronic problem - PT/OT consulted, rehab recommended - CM looking into [facility] as well as SNFs as [facility] is not in network (6) History of alcohol abuse: Plan: Reports 2-3 cans of beer per day but has a chronic severe alcohol abuse history. BAL negative on presentation to ED. No symptoms of withdrawal currently and no h/o DTs/hallucinations/seizures. \ - AWSS protocol with PRN Ativan - High dose Thiamine 500mg IV x1 given on 04/07, changed to 200mg IV daily starting today - Can resume 100mg daily PO upon discharge (7) Protein calorie malnutrition: Plan: Chronic, 2/2 to chronic alcohol abuse and overall difficulty caring for herself. - CM consulted as stated above - consider dietary consult once patient can re-start diet (8) Osteoporosis: Plan: Chronic, although patient denies previous DEXA evaluation and I am unable to locate this in our records. - hold Alendronate while NPO - recommend DEXA as outpatient - per PCP (9) Pancreatic insufficiency: Plan: Chronic. - Resume Creon (10) Hyperlipidemia: Plan: Chronic. - Can resume statin (11) COPD (chronic obstructive pulmonary disease): Plan: Chronic. Without supplemental O2 at home - PRN DuoNebs, continue home inhaler - O2 as needed to maintain SpO2 88-92%, wean as tolerated, currently on room air (12) GERD (gastroesophageal reflux disease): Plan: Chronic. - Protonix 40mg daily Plan Continue PT/OT. Needs rehab upon dc either at [facility] or SNF if they are not able to get a one time contract as they are attempting to do. Regardless, she is medically stable for d/c once details are sorted out. CM following. Labs ordered for tomorrow morning. Plan d/w Dr. Paez. Admission and Anticipated Discharge Date Admission Date: April 07, 2022 Subjective Patient was seen on daily rounds this morning. She is resting comfortably in bed, states that her right leg is sore but not pain is not overtly uncontrolled. She denies cp or dyspnea. She states she has a chronic cough. No n/v. Urinary catheter still in place, refused RN to remove it yesterday. Review of Systems Review of Systems: All systems reviewed and are unremarkable except as noted in HPI and below. Denies fever, chills, fatigue, headache, nasal congestion, sore throat, cough, chest pain, shortness of breath, palpitations, orthopnea, PND, abdominal pain, n/v/d, constipation, back pain, easy bruising or bleeding, skin lesions or rashes. Physical Exam Physical Exam: GENERAL: 61 yo Well-developed, well-nourished WF. NAD. LUNGS: Nonlabored. CTAB CARDIOVASCULAR: Regular rate and rhythm. ABDOMEN: Soft, non-tender and non-distended. BS normoactive x 4 quad. EXTREMITIES: No edema. Non-tender. Peripheral pulses +2/4. NV intact RLE. No calf tenderness. Neg leana's sign. NEUROLOGIC: A&O x3. PSYCHIATRIC: Cooperative. Appropriate mood and affect. SKIN: Warm, dry, intact. Incisions to R leg are dressed and dry. Results & Data Results & Data ([facility]) Vital Signs (Past 12 Hours) Vital Signs Temp Pulse Resp BP Pulse Ox O2 Del Method 04/09/22 11:39 36.8 C 81 12 130/73 93 Room Air 04/09/22 10:32 80 18 94 Room Air 04/09/22 08:39 Room Air 04/09/22 08:01 36.5 C 79 14 172/75 H 94 Room Air 04/09/22 06:55 87 18 97 Room Air 04/09/22 03:37 36.6 C 59 L 18 112/63 94 Laboratory Results 04/09/22 08:21 04/08/22 08:25 Mag 1.9 PG Care Time/CCT Total # of Minutes Spent Total Time Spent with Patient: Total time spent is greater than 50% in coordination of care (as documented) at patient's floor/unit and/or counseling patient: Coding Level of Care Code 81549 Subseq Hosp Care Lvl 2 Diagnoses Closed displaced oblique fracture of shaft of right femur S72.331A Postoperative anemia due to acute blood loss D62 Adrenal insufficiency E27.40 Hyponatremia E87.1 Frequent falls R29.6 History of alcohol abuse F10.11 Protein calorie malnutrition E46 Osteoporosis M81.0 Pancreatic insufficiency K86.89 Hyperlipidemia E78.5 COPD (chronic obstructive pulmonary disease) J44.9 GERD (gastroesophageal reflux disease) K21.9
[2022-04-09] MEDS ORDERED: IRON SUCROSE 300 MG in SODIUM CHLORIDE 0.9% 250 ML IV ONE (13:30)
[2022-04-09] MEDS ORDERED: ALBUT/IPRATROP 3MG/0.5MG NEB 3 ML VIAL NEB PRN (14:01)
[2022-04-09 22:57] LABS: 7-Aminoclonaz, Confirm NEGATIVE ng/mL (<25); Codeine Urine NEGATIVE ng/mL (<50); Hydro-Alp Ur, GC/MS NEGATIVE ng/mL (<25); Hydrocodone Urine NEGATIVE ng/mL (<50); Hydromor Urine 748 ng/mL (<50); Hydroxyethylflurazepam, Conf NEGATIVE ng/mL (<50); Hydroxymidazolam Ur, GC/MS >2000 ng/mL (<50); Hydroxytriazolam NEGATIVE ng/mL (<50); Lorazepam, Ur GC/MS NEGATIVE ng/mL (<50); Marijuana Quant, GCMS Urine 348 ng/mL (<5); Morphine Urine 4070 ng/mL (<50); Nordiazepam, Confirm NEGATIVE ng/mL (<50); Norhydrocodone Conf Ur NEGATIVE ng/mL (<50); Noroxycodone Urine NEGATIVE ng/mL (<50); Oxazepam Ur, GC/MS NEGATIVE ng/mL (<50); Oxycodone Urine NEGATIVE ng/mL (<50); Oxymorph Urine NEGATIVE ng/mL (<50); Temazepam, Confirm NEGATIVE ng/mL (<50)
[2022-04-10] MEDS: oxyCODONE HCL IR 5 MG TAB (IMMEDIATE RELEASE) PO PRN ×2 (05:18→09:32)
[2022-04-10 06:32] LABS: Basophils # (auto) 0.01 K/uL (0-0.2); Basophils % (auto) 0.1 %; Hematocrit (blood only) 21.3 % (34.1-44.9); Hemoglobin 7.4 g/dl (12.0-16.0); Immature Granulocytes # (auto) 0.04 K/uL (0.00-0.02); Immature Granulocytes % (auto) 0.6 %; Lymphocytes # (auto) 1.18 K/uL (1.2-3.4); Lymphocytes % (auto) 17.6 %; Mean Corpuscular Hemoglobin 31.8 pg (25.0-34.0); Mean Corpuscular Hgb Conc 34.7 g/dL (32.0-36.0); Mean Corpuscular Volume 91.4 fL (80.0-100.0); Mean Platelet Volume 10.2 fL (9.4-12.3); Monocytes # (auto) 0.45 K/uL (0.24-0.82); Monocytes % (auto) 6.7 %; Neutrophils # (auto) 5.02 K/uL (1.4-6.5); Platelet Count 163 K/uL (130-400); RDW Coefficient of Variation 14.4 % (11.5-14.5); RDW Standard Deviation 48.1 fL (36.4-46.3); Red Blood Count 2.33 M/uL (3.93-5.22)
[2022-04-10 06:54] LABS: Polychromasia 1+
[2022-04-10 06:58] LABS: BUN Creatinine Ratio 19.4 (10-20); Calcium 7.9 mg/dl (8.5-10.1); Creatinine Clr Calc Pharmacy 131.4 ml/min; Est GFR (African American) 135.8 ml/min; Est GFR (Non-African American) 117.2 ml/min; Magnesium 1.8 mg/dl (1.7-2.4); Potassium 3.6 mmol/L (3.5-5.1)
[2022-04-10] MEDS: FERROUS SULFATE 325 MG TAB PO SCH ×2 (07:54→15:54)
[2022-04-10 08:48] LABS: Hematocrit (blood only) 22.5 % (34.1-44.9); Hemoglobin 7.9 g/dl (12.0-16.0)
[2022-04-10] MEDS: HYDROCORTISONE SOD 50 MG in SYRINGE 0 ML IV SCH (08:59)
[2022-04-10] MEDS: ASPIRIN 81 MG ECTAB PO SCH (09:07)
[2022-04-10] MEDS: FOLIC ACID 1 MG TAB PO SCH (09:08)
[2022-04-10] MEDS: PANTOprazole 40 MG TAB PO SCH (09:08)
[2022-04-10] MEDS: PANCREAZE (LIPASE 10,500U) CAP PO SCH (09:09)
[2022-04-10] MEDS: FLUTICASONE FUROATE 200MCG 14 PUFFS/INHALER INH SCH (09:10)
[2022-04-10] MEDS: THIAMINE HCL 200 MG in SODIUM CHLORIDE 0.9% 50 ML IV SCH (09:26)
[2022-04-10] MEDS ORDERED: ACETAMINOPHEN 325 MG TAB PO ONE (10:09)
[2022-04-10] MEDS ORDERED: diphenhydrAMINE Capsule 25 MG CAP PO ONE (10:09)
[2022-04-10] MEDS ORDERED: SODIUM CHLORIDE 0.9% 250 ML IV PRN (10:09)
[2022-04-10] MEDS ORDERED: POLYETHYLENE (MIRALAX) 17 GM PACK PO PRN (11:29)
--- NOTE | 2022-04-10 11:37 | Hospitalist Progress Note ---
Date of Service April 10, 2022 Assessment & Plan (1) Closed displaced oblique fracture of shaft of right femur: Plan: Due to mechanical fall on 04/06, confirmed by XR. - Ortho consulted ([facility]) - appreciate recs s/p IM nailing to R femur on 04/[address] Faye - Post operatively doing well, will change pain control regimen to APAP for mild pain, OxyIR 5mg PO q4 for mod pain and 10mg PO q4 for severe pain - ASA 81mg BID ordered for DVT ppx by ortho - I/S q2 while awake for atelectasis/pna prevention - PT/OT eval--advise rehab - Removed allen 04/09 - For dc to [facility] 04/11 (2) Postoperative anemia due to acute blood loss: Plan: - Pt has chronic anemia with baseline hgb 8-10 - Preop hgb of 13 recorded on labs 04/07 with a drop down to 8.6 on 04/08 and 8.0 today - Currently on FeSO4 BID at home which has been continued - Given a dose of IV Venofer 300mg x1 on 04/09 - Repeat CBC this AM hgb 7.4, repeat was 7.9 - 1 unit of PRBCs ordered, pretreat prior (3) Adrenal insufficiency: Plan: Chronic. Per our previous records patient had failed ACTH stim testing and had diagnosis confirmed. May have been due to ?previous steroid use. Patient takes Hydrocortisone 20mg QAM and 10mg QHS. - initiated stress dose steroids: was given total of 200mg IV Solu-Cortef over 24 hours - Has been slowly weaned down on Solu-Cortef, due for 50mg IV on 04/11 AM and can then resume her home dose on 04/12 as prescribed (4) Hyponatremia: Plan: Na 130 here which appears to be chronic baseline. Likely due to beer potomania as well as poor solute intake and possibly component of adrenal insufficiency although patient has reportedly been taking daily Hydrocortisone. Patient currently asymptomatic in this regard. - counseled on alcohol cessation - seizure precautions - Na improved to 136 on labs this AM (5) Frequent falls: Plan: Chronic problem - PT/OT consulted, rehab recommended - Plan dc to [facility] on 04/11 (6) History of alcohol abuse: Plan: Reports 2-3 cans of beer per day but has a chronic severe alcohol abuse history. BAL negative on presentation to ED. No symptoms of withdrawal currently and no h/o DTs/hallucinations/seizures. \ - AWSS protocol with PRN Ativan - High dose Thiamine 500mg IV x1 given on 04/07, changed to 200mg IV daily starting today - Can resume 100mg daily PO upon discharge (7) Protein calorie malnutrition: Plan: Chronic, 2/2 to chronic alcohol abuse and overall difficulty caring for herself. - CM consulted as stated above - consider dietary consult once patient can re-start diet (8) Osteoporosis: Plan: Chronic, although patient denies previous DEXA evaluation and I am unable to locate this in our records. - hold Alendronate while NPO - recommend DEXA as outpatient - per PCP (9) Pancreatic insufficiency: Plan: Chronic. - Resume Creon (10) Hyperlipidemia: Plan: Chronic. - Can resume statin (11) COPD (chronic obstructive pulmonary disease): Plan: Chronic. Without supplemental O2 at home - PRN DuoNebs, continue home inhaler - O2 as needed to maintain SpO2 88-92%, wean as tolerated, currently on room air (12) GERD (gastroesophageal reflux disease): Plan: Chronic. - Protonix 40mg daily Plan Continue PT/OT. CM following, informed this AM that insurance approved [facility]. [facility] can take pt on 04/11. Interventions as outlined above. Repeat labs ordered for tomorrow AM. Plan d/w Dr. Allen. Admission and Anticipated Discharge Date Admission Date: April 07, 2022 Subjective Patient was seen on daily rounds this morning. She is resting comfortably in bed, states that her right leg is sore but not pain is not overtly uncontrolled. She denies cp or dyspnea. Voiding w/o issue since allen removal on 04/09. Notified by RN that hgb on labs this AM was 7.4. Review of Systems Review of Systems: All systems reviewed and are unremarkable except as noted in HPI and below. Denies fever, chills, fatigue, headache, nasal congestion, sore throat, cough, chest pain, shortness of breath, palpitations, orthopnea, PND, abdominal pain, n/v/d, constipation, back pain, easy bruising or bleeding, skin lesions or rashes. Physical Exam Physical Exam: GENERAL: 61 yo Well-developed, well-nourished WF. NAD. LUNGS: Nonlabored. CTAB CARDIOVASCULAR: Regular rate and rhythm. ABDOMEN: Soft, non-tender and non-distended. BS normoactive x 4 quad. EXTREMITIES: No edema. Non-tender. Peripheral pulses +2/4. NV intact RLE. No calf tenderness. Neg leana's sign. NEUROLOGIC: A&O x3. PSYCHIATRIC: Cooperative. Appropriate mood and affect. SKIN: Warm, dry, intact. Incisions to RLE covered/dressed. Results & Data Results & Data ([facility]) Vital Signs (Past 12 Hours) Vital Signs Temp Pulse Resp BP BP Pulse Ox O2 Del Method 04/10/22 11:19 36.4 C L 69 18 134/74 94 Room Air 04/10/22 07:43 36.7 C 93 H 20 117/64 91 Room Air 04/10/22 07:37 36.5 C 66 16 159/79 H 94 Room Air Laboratory Results 04/10/22 08:32 04/10/22 05:40 PG Care Time/CCT Total # of Minutes Spent Total Time Spent with Patient: Total time spent is greater than 50% in coordination of care (as documented) at patient's floor/unit and/or counseling patient: Coding Level of Care Code 54204 Subseq Hosp Care Lvl 2 Diagnoses Closed displaced oblique fracture of shaft of right femur S72.331A Postoperative anemia due to acute blood loss D62 Adrenal insufficiency E27.40 Hyponatremia E87.1 Frequent falls R29.6 History of alcohol abuse F10.11 Protein calorie malnutrition E46 Osteoporosis M81.0 Pancreatic insufficiency K86.89 Hyperlipidemia E78.5 COPD (chronic obstructive pulmonary disease) J44.9 GERD (gastroesophageal reflux disease) K21.9
[2022-04-10] MEDS: bisacodyL 10 MG SUPP PR STA ×2 (13:52→14:54)
[2022-04-10] MEDS: DOCUSATE SODIUM/SENNA 50/8.6MG TAB PO SCH ×2 (13:52→14:54)
--- NOTE | 2022-04-10 14:43 | Discharge Summary ---
Date of Service April 10, 2022 Admission HPI Per Admitting Provider Lydia Oden is a 61yo female with PMHx that includes alcohol use disorder, tobacco use disorder, osteoporosis with h/o multiple fractures, recurrent falls, chronic hyponatremia, adrenal insufficiency, pancreatic insufficiency, COPD (no home O2), arthritis, HTN, HLD, iron deficiency, GERD, and h/o GI bleed. She presented to [facility] ED on 04/07 after a mechanical fall at home - tripped over her dog's bed while using a walker and fell onto her right side - with immediate onset of 10/10 right upper leg pain and a notable right upper leg deformity. Denies head trauma or LOC. Patient reports drinking 2-3 cans of beer per day and says she has recently been cutting down, but would not tell me how much she previously was drinking. Denies h/o severe withdrawal/DTs/hallucinations/seizures. Patient also smokes 2-3 cigarettes per day. Denies other drug use. The patient lives at home alone and, as stated above, has had recurrent falls with several resultant fractures and ambulatory dysfunction. In the ED the patient was afebrile and hemodynamically stable on 2L NC. Labs significant for Na 130 (~chronic baseline). CBC and CMP/Mg otherwise WNL. BAL negative. Pelvis/Femur XR showing acute displaced right femoral fracture. Patient received total of Fentanyl 200mcg, Tylenol 1g IV, and Morphine 4mg IV in the ED for right thigh pain, which has led to only mild improvement in severe pain. Was also started on NSS @125cc/hr. ED provider spoke with [facility] (Dr. Faye) who have seen the patient in the past for previous fractures. Patient will remain NPO pending full Ortho evaluation in the morning. Was also placed in traction brace. Principal Diagnosis 1. Right displaced femoral fracture s/p IM nail 2. Acute on chronic iron deficiency anemia d/t blood loss Discharge Exam GENERAL: 61 yo Well-developed, well-nourished WF. NAD. LUNGS: Nonlabored. CTAB CARDIOVASCULAR: Regular rate and rhythm. ABDOMEN: Soft, non-tender and non-distended. BS normoactive x 4 quad. EXTREMITIES: No edema. Non-tender. Peripheral pulses +2/4. NV intact RLE. No calf tenderness. Neg leana's sign. NEUROLOGIC: A&O x3. PSYCHIATRIC: Cooperative. Appropriate mood and affect. SKIN: Warm, dry, intact. Incisions to RLE covered/dressed. Discharge Data Allergies Allergy/AdvReac Type Severity Reaction Status Date / Time Penicillins Allergy Intermediate Rash Verified 10/23/21 18:43 Consultations 04/07/22 03:45 Consult Orthopedic Surgery Routine Procedures Performed Operation Date: 04/07/22 10:00 Actual Procedures p Intramedullary Damion Femur(Right) - Dane Faye DO Ordered Studies Femur X-Ray 04/07/22 00:00 INTRAOPERATIVE RADIOGRAPHS CLINICAL HISTORY: Open reduction and internal fixation of the right femur. Fluoroscopy time: 102 seconds. FINDINGS: 6 spot fluoroscopic views of the right femur are correlated with radiographs dated 04/07/2022. Intertrochanteric and intramedullary nails have been placed transfixing a femoral shaft fracture. Near-anatomic alignment is restored. 2 cortical lag screws transfix the distal end of the intramedullary note. The orthopedic hardware appears intact. IMPRESSION: Intraoperative images from open reduction and internal fixation of a right femoral fracture as above. Electronically signed by: Samir Addison M.D. 04/07/2022 10:24 PM Chest X-Ray 04/07/22 01:35 XR chest 1V portable CLINICAL HISTORY: trauma TECHNIQUE: Single frontal radiograph of the chest was obtained. Comparison: Comparison is made to chest radiograph 03/06/2021 FINDINGS: Orthopedic hardware is again seen. The cardiomediastinal silhouette is normal. The lungs are clear. No evidence of pleural effusion or pneumothorax. Old healed rib fractures are noted bilaterally. Partial visualization of deformity of the right humerus. IMPRESSION: No acute chest disease. ACT 112: Negative or not required by law. Electronically signed by: Jamaal Davenport M.D. 04/07/2022 6:17 PM Femur X-Ray 04/07/22 01:35 XR femur RT 2V routine, XR pelvis 1-2V routine CLINICAL HISTORY: trauma TECHNIQUE: 2 radiographic views of the right femur and 2 views of the pelvis were obtained. Comparison: None available at the time of this dictation. FINDINGS: Spiral fracture of the proximal right femur is seen without intra-articular involvement. Degenerative changes are seen in the bilateral hip joints. Soft tissue swelling is seen in the right thigh. IMPRESSION: Spiral fracture of the proximal right femur with associated soft tissue swelling. ACT 112: Negative or not required by law. Electronically signed by: Jamaal Davenport M.D. 04/07/2022 2:33 PM Pelvis X-Ray 04/07/22 01:35 XR femur RT 2V routine, XR pelvis 1-2V routine CLINICAL HISTORY: trauma TECHNIQUE: 2 radiographic views of the right femur and 2 views of the pelvis were obtained. Comparison: None available at the time of this dictation. FINDINGS: Spiral fracture of the proximal right femur is seen without intra-articular involvement. Degenerative changes are seen in the bilateral hip joints. Soft tissue swelling is seen in the right thigh. IMPRESSION: Spiral fracture of the proximal right femur with associated soft tissue swelling. ACT 112: Negative or not required by law. Electronically signed by: Jamaal Davenport M.D. 04/07/2022 2:33 PM Chest X-Ray 04/07/22 14:27 XR chest 1V portable CLINICAL HISTORY: hypoxia TECHNIQUE: Single frontal radiograph of the chest was obtained. Comparison: Comparison is made to chest radiograph 04/07/2022 FINDINGS: Bilateral clavicular hardware and left humeral medullary damion are noted. The cardiomediastinal silhouette is normal. Scarring is noted in the left midlung. No evidence of pleural effusion or pneumothorax. IMPRESSION: No acute chest disease. ACT 112: Negative or not required by law. Electronically signed by: Jamaal Davenport M.D. 04/07/2022 2:46 PM Hospital Course (1) Closed displaced oblique fracture of shaft of right femur: Due to mechanical fall on 04/06, confirmed by XR. - Ortho consulted ([facility]) - appreciate recs s/p IM nailing to R femur on 04/[address] Faye - Post operatively doing well, will change pain control regimen to APAP for mild pain, OxyIR 5mg PO q4 for mod pain and 10mg PO q4 for severe pain - ASA 81mg BID ordered for DVT ppx by ortho - I/S q2 while awake for atelectasis/pna prevention - PT/OT eval--advise rehab - Removed allen 04/09 - For dc to [facility] 04/10 (2) Postoperative anemia due to acute blood loss: - Pt has chronic anemia with baseline hgb 8-10 - Preop hgb of 13 recorded on labs 04/07 with a drop down to 8.6 on 04/08 and 8.0 today - Currently on FeSO4 BID at home which has been continued - Given a dose of IV Venofer 300mg x1 on 04/09 - Repeat CBC this AM hgb 7.4, repeat was 7.9 - 1 unit of PRBCs ordered/given, pretreated prior (3) Adrenal insufficiency: Chronic. Per our previous records patient had failed ACTH stim testing and had diagnosis confirmed. May have been due to ?previous steroid use. Patient takes Hydrocortisone 20mg QAM and 10mg QHS. - initiated stress dose steroids: was given total of 200mg IV Solu-Cortef over 24 hours - Has been slowly weaned down on Solu-Cortef, due for 50mg IV on 04/11 AM and can then resume her home dose on 04/12 as prescribed (4) Hyponatremia: Na 130 here which appears to be chronic baseline. Likely due to beer potomania as well as poor solute intake and possibly component of adrenal insufficiency although patient has reportedly been taking daily Hydrocortisone. Patient currently asymptomatic in this regard. - counseled on alcohol cessation - seizure precautions - Na improved to 136 on labs this AM (5) Frequent falls: Chronic problem - PT/OT consulted, rehab recommended - Plan dc to [facility] on 04/10 (6) History of alcohol abuse: Reports 2-3 cans of beer per day but has a chronic severe alcohol abuse history. BAL negative on presentation to ED. No symptoms of withdrawal currently and no h/o DTs/hallucinations/seizures. \ - AWSS protocol with PRN Ativan - High dose Thiamine 500mg IV x1 given on 04/07, changed to 200mg IV daily starting today - Can resume 100mg daily PO upon discharge (7) Protein calorie malnutrition: Chronic, 2/2 to chronic alcohol abuse and overall difficulty caring for herself. - CM consulted as stated above (8) Osteoporosis: Chronic, although patient denies previous DEXA evaluation and I am unable to locate this in our records. - hold Alendronate while NPO - recommend DEXA as outpatient - per PCP (9) Pancreatic insufficiency: Chronic. - Resume Creon (10) Hyperlipidemia: Chronic. - Can resume statin (11) COPD (chronic obstructive pulmonary disease): Chronic. Without supplemental O2 at home - PRN DuoNebs, continue home inhaler - O2 as needed to maintain SpO2 88-92%, wean as tolerated, currently on room air (12) GERD (gastroesophageal reflux disease): Chronic. - Protonix 40mg daily Plan Continue PT/OT. CM following, informed this AM that insurance approved [facility] and they are able to accept today. Pt medically stable for d/c and plan has been d/w Dr. Allen who is in agreement with aforementioned. Total Time Total Time Spent Total Time Spent (In Minutes): >30 minutes Discharge Plan Discharge Items Patient Disposition: Transfer Inpatient Rehab Fac Reason For Visit: DISPLACED RT FEMORAL FRACTURE Discharge Diagnosis: right femur fracture after fall acute blood loss anemia with blood transfusion Activity: Resume your previous activity Weightbearing: Right partial Weightbearing Comment: with walker or crutches Non-emergency contact: Surgeon Call non-emergency contact if: you have any medication questions, your pain is not controlled, your temperature is above 101.5, your wound has increased redness and your wound has increased drainage Follow-up/Referrals: Darian Lopez [Primary Care Provider] - Dane Faye, [Surgeon] - (Follow up with Dr. Faye 2 weeks from the day of your surgery for your first post operative visit.) Diet: Regular Addtl Attending Provider Instructions: You were hospitalized due to a fall that resulted in a fracture of your right femur (or thigh bone). You underwent surgery by Dr. Faye on 04/07 to realign the bone. You will need to follow all discharge instructions including weight bearing and follow up with Dr. Faye in 2 weeks as scheduled. You are being prescribed Aspirin 81mg to take twice a day to prevent blood clots from developing in your legs. You were noted to have some blood loss that is not uncommon after a fracture and surgery. You were given 1 unit of blood on 04/10. You can continue taking your iron supplementation as prescribed. Take Oxycodone 5mg every 4 hours for pain scaled #4 through 6 and 10mg for pain scaled #7 through 10. You will be discharged to [facility] where you will continue physical and occupational therapy until you are deemed safe to return home with home health services. You will be followed by the medical team at the rehab hospital during your stay. After that, it is advised that you follow up closely with your primary care provider. Addtl Independent Freight Agent Provider Instructions: You are to be partial weightbearing on your right lower extremity at this time. You may use a walker or crutches to assist with your ambulation. Daily dressing changes to your wounds. If your wounds remain clean and dry, you may change them every other day. You may shower. No tub baths. Do not soak the wounds. No direct shower pressure to the wounds at this time. Do not use creams or ointments on the wounds at this time. Please call the office if you notice increased drainage or swelling, redness of the wounds, increased pain, or temperature of 101.5 or greater. Please make an appointment to see Dr Faye in 2 weeks from the day of your surgery for your first wound check. [phone] Pending Studies at Discharge: No Stand-Alone Forms: My [facility] Skilled Items Patient informed of condition?: Yes DNR: No Discharge Level of Care: Acute rehab Communicable Disease: No Discharge Prognosis: Stable Lines: None Urinary Catheter: No Medications and DC Order Prescriptions: New oxycodone 5 mg Tablet 5 - 10 mg PO Q4H Qty: 20 0RF aspirin [Sherri Chewable Aspirin] 81 mg tablet,chewable 81 mg PO BID Qty: 60 0RF Continued pravastatin 10 mg tablet 10 mg PO DAILY folic acid 1 mg tablet 1 mg PO DAILY cholecalciferol (vitamin D3) [Vitamin D3] 50 mcg (2,000 unit) capsule 2,000 mcg PO DAILY alendronate 70 mg tablet 70 mg PO WK Rx Instructions: LAST FILLED 06/16/21 FOR 84 DAYS. pantoprazole 20 mg tablet,delayed release (DR/EC) 20 mg PO DAILY ferrous sulfate 325 mg (65 mg iron) tablet 325 mg PO BID fluticasone propionate 50 mcg/actuation spray,suspension 2 spray INTRANASAL DAILY potassium chloride 10 mEq capsule, extended release 20 meq PO BID Creon 36,000-114,000- 180,000 unit Capsule,Delayed Release(Dr/Ec) 1 cap PO AC Qty: 90 0RF fluticasone propionate [Flovent HFA] 110 mcg/actuation HFA aerosol inhaler 1 inh INHALATION BID Combivent Respimat 20-100 mcg/actuation mist 1 puff INHALATION BID diphenhydramine HCl [Benadryl] 25 mg Capsule 25 mg PO [id number] PRN (Reason: itching) Qty: 30 0RF polyethylene glycol 3350 [Miralax] 17 gram Powder In Packet 17 g PO DAILY PRN (Reason: constipation) Qty: 30 0RF hydrocortisone [Cortef] 10 mg Tablet 20 mg PO QAM Qty: 30 0RF hydrocortisone [Cortef] 10 mg Tablet 10 mg PO DAILY@1500 Qty: 30 0RF thiamine HCl (vitamin B1) 100 mg tablet 100 mg PO DAILY Qty: 30 0RF Discharge Orders: Discharge Order (Routine); Ordered 04/10/22 Ordered By: Elena Stone Admission Data Admit Date/Time: 04/07/22 04:49 Attending Provider: Tereso Allen Admit Provider: Bryan Paredes Primary Care Provider: Darian Lopez Other Providers: [facility] ; [facility] ; Dane Faye Coding Level of Care Code D/C DAY MANAGEMENT >30 MINS Diagnoses Closed displaced oblique fracture of shaft of right femur S72.331A Postoperative anemia due to acute blood loss D62 Adrenal insufficiency E27.40 Hyponatremia E87.1 Frequent falls R29.6 History of alcohol abuse F10.11 Protein calorie malnutrition E46 Osteoporosis M81.0 Pancreatic insufficiency K86.89 Hyperlipidemia E78.5 COPD (chronic obstructive pulmonary disease) J44.9 GERD (gastroesophageal reflux disease) K21.9
[2022-04-10] MEDS ORDERED: HYDROCORTISONE SOD 50 MG in SYRINGE 0 ML IV ONE (17:00)
[2022-04-11] MEDS ORDERED: HYDROCORTISONE SOD 50 MG in SYRINGE 0 ML IV SCH (09:00)
== END 2022-04-10 18:10 | DRG 481 ==
LOC: ED 01:00 → SUATTDRO 04:49 → 3W 04:49 → 2W 17:26

== ENCOUNTER 2022-09-16 09:12 | Inpatient (IN) ==
[2022-09-16] MEDS ORDERED: CEFEPIME 2,000 MG/20 ML VIAL IV STA (09:33)
[2022-09-16] MEDS ORDERED: HYDROCORTISONE SOD SUCCINATE 100 MG/2 ML VIAL IV STA (09:33)
[2022-09-16] MEDS ORDERED: ACETAMINOPHEN 1,000 MG/100 ML VIAL IV STA (09:33)
[2022-09-16] MEDS ORDERED: ONDANSETRON INJ 2 MG/ML 2 ML VIAL IV STA (09:33)
--- NOTE | 2022-09-16 09:36 | Emergency Department Note ---
Impression & Plan Hypotension, Infection due to human metapneumovirus (hMPV), Diarrhea, Acute hyponatremia, Hypocalcemia, Hypomagnesemia, Acute dehydration ED Provider Note NAME: YASHIRA VIEYRA AGE: 61 SEX: F : 1960 ARRIVES VIA: Ambulance INFORMANT: [Patient][ems, nursing] ED PROVIDER(S): [Samri Salguero MD] CHIEF COMPLAINT: Pain HISTORY OF PRESENT ILLNESS: The patient is a 61-year-old female who by EMS report has not been able to walk for a few days. She has also had diarrhea for a few days with all over body aches. She has been drinking alcohol but, not really eating. She is out of all her medications. She describes some shortness of breath but always is short of breath. No blood described in the diarrhea. No fever reported. The majority of the history was obtained from the nurses and from EMS, the patient is a very poor historian. Of note, the patient does have a history of adrenal insufficiency PMHx/PSHx: See Below SOCIAL HISTORY: See Below. PHYSICAL EXAM: GENERAL: Patient is in no acute distress. HEENT: No acute trauma, normocephalic atraumatic, mucous membranes dry, no nasal congestion. NECK: No stridor, no adenopathy, no meningismus, trachea is midline. LUNGS: Rhonchi bilaterally, no obvious respiratory distress, no wheezing. HEART: Without murmurs gallops or rubs, regular rate and rhythm. Heart tones are distant. ABDOMEN: Soft, nontender, bowel sounds positive, no peritonitis. EXTREMITIES: No cyanosis, mild bilateral pedal edema, full range of motion of all the joints without pain or difficulty, no signs for acute trauma. NEUROLOGIC: Awake, moves all extremities, poor historian SKIN: Patient has some skin breakdown along the left anterior abdominal belt line. This area is tender but there is no surrounding erythema to suggest cellulitis, no warmth DIFFERENTIAL DIAGNOSIS: Sepsis or bacteremia, dehydration, electrolyte imbalance, anemia, viral illness, C. difficile colitis, bacterial intestinal infection, colitis, diverticulitis, adrenal insufficiency, among others EMERGENCY DEPARTMENT COURSE/PROCEDURES: Prior/Outside records reviewed: Previous discharge summary, EMS notes. ECG per my interpretation: Indication was weakness. The ECG shows a sinus rhythm with multiple PACs. The rate is 89. There is an old anterior and old inferior infarct. There is some diffuse nonspecific ST change. No ST elevation. The QTc is 627. Compared to an ECG from 07 April 2022, PACs are now present, the QTc has increased. Continuous Cardiac Monitoring per my interpretation: An order was placed for continuous cardiac monitoring. The monitor shows a rate of 82 with sinus rhythm with PACs. Critical Care Note: I have personally spent 52 minutes of critical care time in the direct management of this patient. This includes bedside care, interpretation of diagnostic studies, and testing, discussion with consultants, patient, and family members, and other required patient management activities. This 52 minutes is in excess of all separately billable procedures. MEDICAL DECISION MAKING: There is no leukocytosis in fact, the white count is low which may be more consistent with a viral illness. There is no anemia. There is a normal platelet count. No worrisome coagulopathy. Sodium was quite low at 118. Magnesium and calcium were both low. No renal failure. Lactic acid level was not not elevated making severe sepsis less likely. No concerning liver enzyme elevation. ECG showed a sinus rhythm with PACs, no obvious acute ischemia. Cardiac enzyme testing x1 was slightly elevated, this elevation could be secondary to cardiac injury or potentially just mismatch. Urinalysis showed ketones consistent with dehydration, no obvious infection. Respiratory bio fire is returned positive for human metapneumovirus. Stool bio fire returned negative. C. difficile testing returned negative. Alcohol level returned undetectable. Chest film did not show any pneumonia or CHF per my review. Abdominal and pelvis CT shows a potential gastroenteritis. No acute surgical pr ocess by CT imaging. A potential subacute thoracic compression fracture was seen. Brain CT showed no acute bleed or mass effect. On exam, the patient appeared dehydrated, she was quite frail. The patient received IV saline, a total of 3 L. This was given for potential sepsis. The amount given was greater than 30 cc/kg. Patient received IV magnesium, 2 g. She received IV calcium and IV Zofran. She was given IV cefepime as empiric antibiotic coverage. She was given IV Tylenol. She recei alex IV hydrocortisone because of her history of adrenal insufficiency. With the above treatment, the patient does seem improved, she is more comfortable. Her blood pressure has improved to over 100 systolic. Her pulse is in the 80s. The patient is in need of a hospital stay. She has multiple findings that require admission and further care. She has significant electrolyte abnormalities, hypotension and was found to be positive for human metapneumovirus. I spoke with the patient and case management, the on-call hospitalist was consulted. DISPOSITION: The patient's presentation and findings warrant a hospital stay. Past Med/Surg History Medical History COPD (chronic obstructive pulmonary disease) GERD (gastroesophageal reflux disease) History of alcohol abuse Hyperlipidemia Hypertension Hypokalemia Hyponatremia Hypotension Osteoporosis Protein calorie malnutrition Rheumatoid arthritis Surgical History S/P section Family History Other No significant family history Social History Smoking Status: Current every day smoker Cigarettes Per Day: 1-2/day; Second Hand Exposure: Yes; Hx Alcohol Use: Yes Alcohol type: beer Hx Substance Use: Yes Preferred Language: [place] Communication Ability: Effective Parking Regulation Enforcement Officer Required: No Beliefs That Will Affect Care: None marital status: Single Current Living Situation: Significant Other Current Living Situation Comment: lives with boyfriend current occupational status: unemployed Feels Safe at Home: Yes Assistive Devices: Walker Allergies Allergies Allergy/AdvReac Type Severity Reaction Status Date / Time Penicillins Allergy Intermediate Rash Verified 10/23/21 18:43 Home Meds Home Medications Medication Instructions Recorded Confirmed cholecalciferol (vitamin D3) 50 2,000 mcg PO DAILY 06/19/19 10/23/21 mcg (2,000 unit) capsule (Vitamin D3) folic acid 1 mg tablet 1 mg PO DAILY 06/19/19 10/23/21 pravastatin 10 mg tablet 10 mg PO DAILY 06/19/19 10/23/21 alendronate 70 mg tablet 70 mg PO WK 02/24/21 10/23/21 ferrous sulfate 325 mg (65 mg 325 mg PO BID 02/24/21 10/23/21 iron) tablet fluticasone propionate 50 2 spray intranasal DAILY 02/24/21 10/23/21 mcg/actuation nasal spray,suspension pantoprazole 20 mg tablet,delayed 20 mg PO DAILY 02/24/21 10/23/21 release potassium chloride 10 mEq 20 meq PO BID 02/24/21 10/23/21 capsule,extended release fluticasone propionate 110 1 inh inhalation BID 10/23/21 10/23/21 mcg/actuation HFA aerosol inhaler (Flovent HFA) ipratropium 20 mcg-albuterol 100 1 puff inhalation BID 10/23/21 10/23/21 mcg/actuation mist for inhalation (Combivent Respimat) Previous Rx's Medication Instructions Recorded [id number] 1 cap PO AC #90 caps 03/08/21 36,000-114,000-180,000 unit capsule,delay rel (Creon) diphenhydramine HCl 25 mg capsule 25 mg PO [id number] PRN itching #30 10/30/21 (Benadryl) caps hydrocortisone 10 mg tablet 10 mg PO DAILY@1500 #30 tabs 10/30/21 (Cortef) hydrocortisone 10 mg tablet 20 mg PO QAM #30 tabs 10/30/21 (Cortef) polyethylene glycol 3350 17 gram 17 g PO DAILY PRN constipation #30 10/30/21 oral powder packet (Miralax) ea thiamine HCl (vitamin B1) 100 mg 100 mg PO DAILY #30 tabs 10/30/21 tablet aspirin 81 mg chewable tablet 81 mg PO BID #60 tabs 04/10/22 (Sherri Chewable Low Dose Aspirin) oxycodone 5 mg tablet 5 - 10 mg PO Q4H #20 tabs 04/10/22 Results & Data (ED) Vital Signs Vital Signs - 24 hr 09/16/22 09:31 09/16/22 09:33 09/16/22 10:18 Temperature 36.9 C Temperature Source Oral Pulse Rate 89 89 Pulse Rate from SpO2 Sensor Pulse Rhythm Regular Respiratory Rate 20 Respiratory Effort / Characteristics Non-Labored Spontaneous Respiratory Depth Normal Blood Pressure 89/56 L Blood Pressure Mean 67 Pulse Oximetry 89 L 90 Oxygen Delivery Method Room Air Nasal Cannula Oxygen Flow Rate 1 Sepsis Recent Fever Within 48 Hours No Sepsis New/Unexplained Change in Mental Status No Sepsis Action Taken by Nursing No Action Required 09/16/22 09:27 09/16/22 09:28 09/16/22 09:28 Temperature Temperature Source Pulse Rate 94 H 90 Pulse Rate from SpO2 Sensor 97 H 102 H Pulse Rhythm Respiratory Rate 23 27 H Respiratory Effort / Characteristics Respiratory Depth Blood Pressure 96/57 L Blood Pressure Mean 70 Pulse Oximetry 85 L 90 Oxygen Delivery Method Oxygen Flow Rate Sepsis Recent Fever Within 48 Hours Sepsis New/Unexplained Change in Mental Status Sepsis Action Taken by Nursing 09/16/22 09:30 09/16/22 09:30 09/16/22 10:00 Temperature Temperature Source Pulse Rate 90 Pulse Rate from SpO2 Sensor 91 H Pulse Rhythm Respiratory Rate 25 H Respiratory Effort / Characteristics Respiratory Depth Blood Pressure 81/58 L 91/61 L Blood Pressure Mean 65 71 Pulse Oximetry 91 Oxygen Delivery Method Oxygen Flow Rate Sepsis Recent Fever Within 48 Hours Sepsis New/Unexplained Change in Mental Status Sepsis Action Taken by Nursing 09/16/22 10:00 09/16/22 10:30 09/16/22 10:30 Temperature Temperature Source Pulse Rate 90 82 Pulse Rate from SpO2 Sensor 82 Pulse Rhythm Respiratory Rate 23 24 Respiratory Effort / Characteristics Respiratory Depth Blood Pressure 88/50 L Blood Pressure Mean 62 Pulse Oximetry 97 Oxygen Delivery Method Oxygen Flow Rate Sepsis Recent Fever Within 48 Hours Sepsis New/Unexplained Change in Mental Status Sepsis Action Taken by Nursing 09/16/22 11:00 09/16/22 11:00 09/16/22 11:25 Temperature Temperature Source Pulse Rate 82 76 Pulse Rate from SpO2 Sensor 82 77 Pulse Rhythm Respiratory Rate 24 20 Respiratory Effort / Characteristics Respiratory Depth Blood Pressure 72/43 L Blood Pressure Mean 52 Pulse Oximetry 96 100 Oxygen Delivery Method Oxygen Flow Rate Sepsis Recent Fever Within 48 Hours Sepsis New/Unexplained Change in Mental Status Sepsis Action Taken by Nursing 09/16/22 11:25 09/16/22 11:30 09/16/22 11:30 Temperature Temperature Source Pulse Rate 72 Pulse Rate from SpO2 Sensor 75 Pulse Rhythm Respiratory Rate 20 Respiratory Effort / Characteristics Respiratory Depth Blood Pressure 94/54 L 94/50 L Blood Pressure Mean 67 64 Pulse Oximetry 97 Oxygen Delivery Method Oxygen Flow Rate Sepsis Recent Fever Within 48 Hours Sepsis New/Unexplained Change in Mental Status Sepsis Action Taken by Nursing 09/16/22 12:00 09/16/22 12:00 09/16/22 12:09 Temperature Temperature Source Pulse Rate 72 Pulse Rate from SpO2 Sensor 74 Pulse Rhythm Respiratory Rate 20 Respiratory Effort / Characteristics Respiratory Depth Blood Pressure 80/37 L 91/56 L Blood Pressure Mean 51 67 Pulse Oximetry 91 Oxygen Delivery Method Oxygen Flow Rate Sepsis Recent Fever Within 48 Hours Sepsis New/Unexplained Change in Mental Status Sepsis Action Taken by Nursing 09/16/22 12:09 09/16/22 12:30 09/16/22 12:30 Temperature Temperature Source Pulse Rate 76 75 Pulse Rate from SpO2 Sensor 76 Pulse Rhythm Respiratory Rate 20 18 Respiratory Effort / Characteristics Respiratory Depth Blood Pressure 74/50 L Blood Pressure Mean 58 Pulse Oximetry 91 Oxygen Delivery Method Oxygen Flow Rate Sepsis Recent Fever Within 48 Hours Sepsis New/Unexplained Change in Mental Status Sepsis Action Taken by Nursing 09/16/22 12:51 09/16/22 12:51 09/16/22 13:46 Temperature Temperature Source Pulse Rate 75 80 Pulse Rate from SpO2 Sensor 88 Pulse Rhythm Respiratory Rate 24 Respiratory Effort / Characteristics Respiratory Depth Blood Pressure 108/66 Blood Pressure Mean 80 Pulse Oximetry 89 L Oxygen Delivery Method Oxygen Flow Rate Sepsis Recent Fever Within 48 Hours Sepsis New/Unexplained Change in Mental Status Sepsis Action Taken by [facility] Medications Current Medication List: was personally reviewed by me Laboratory Data Attestation: I reviewed the patient's lab results. 09/16/22 09:42 09/16/22 09:42 Lab Results 09/16/22 09/16/22 09/16/22 Range/Units 09:41 09:41 09:41 WBC (4.8-10.8) K/ul RBC (4.20-5.40) M/uL Hgb (12.0-16.0) g/dl Hct (37.0-47.0) % MCV (80.0-100.0) fL MCH (25.0-34.0) pg MCHC (32.0-36.0) g/dL RDW Std Deviation (36.4-46.3) fL RDW Coeff of Elo (11.5-14.5) % Plt Count (130-400) K/uL MPV (9.4-12.4) fL Immature Gran % (Auto) % Neut % (Auto) % Lymph % (Auto) % [place] % (Auto) % Eos % (Auto) % Baso % (Auto) % Neut # (Auto) (1.40-6.50) K/uL Lymph # (Auto) (1.2-3.4) K/uL [place] # (Auto) (0.11-0.59) K/uL Eos # (Auto) (0-0.50) K/uL Baso # (Auto) (0-0.2) K/uL Immature Gran # (Auto) (0.01-0.20) K/uL PT (9.0-12.0) Seconds INR (0.9-1.1) APTT (21.0-31.0) Seconds PTT Ratio Sodium (136-145) mmol/L Potassium (3.5-5.1) mmol/L Chloride (98-107) mmol/L Carbon Dioxide (21-32) mmol/L Anion Gap (3-11) BUN (6-23) mg/dl Creatinine (0.6-1.2) mg/dl Est Cr Clr Drug Dosing ml/min Est GFR ( Amer) ml/min Est GFR (Non-Af Amer) ml/min BUN/Creatinine Ratio (10-20) Glucose (70-99(Fasting)) mg/dl Osmolality (280-300) mOsm/kg Lactate (0.4-2.0) mmol/L Calcium (8.6-10.3) mg/dl Phosphorus (2.5-4.9) mg/dl Magnesium (1.7-2.4) mg/dl Total Bilirubin (0.2-1.0) mg/dl Direct Bilirubin (0-0.2) mg/dl AST (13-39) U/L ALT (7-52) U/L Alkaline Phosphatase (34-104) U/L Troponin I High Sens (0-14) pg/ml Total Protein (6.0-8.3) gm/dl Albumin (3.4-5.0) gm/dl Vitamin B12 (180-914) pg/ml Folate (>5.38) ng/ml Procalcitonin (0-0.5) ng/ml Urine Color Urine Appearance (Clear) Urine pH (4.5-7.5) Ur Specific [place] (1.000-1.030) Urine Protein (Negative) Urine Glucose (UA) (Negative) Urine Ketones (Negative) Urine Blood (Negative) Urine Nitrite (Negative) Urine Bilirubin (Negative) Urine Urobilinogen (Negative) Ur Leukocyte Esterase (Negative) Urine Osmolality (500-800) mOsm/kg Ur Random Sodium mmol/L Stl C. cayetanensis PCR Not Detected (NotDetected) Stool Rotavirus A PCR Not Detected (NotDetected) Stl Adenov F 40/41 PCR Not Detected (NotDetected) Stool Astrovirus (PCR) Not Detected (NotDetected) Stool Campylobacter PCR Not Detected (NotDetected) Stl C. diff Tox B Gene Negative Cdiff Gene (Neg) Stool Cryptosporidium PCR Not Detected (NotDetected) Stl E.coli Shiga Tox PCR Not Detected (NotDetected) Stl Enterotoxigenic E PCR Not Detected (NotDetected) Stool EPEC (PCR) Not Detected (NotDetected) Stool EAEC (PCR) Not Detected (NotDetected) Stl E. histolytica PCR Not Detected (NotDetected) Stool Giardia Lamblia PCR Not Detected (NotDetected) Stool Salmonella PCR Not Detected (NotDetected) Stool Sapovirus (PCR) Not Detected (NotDetected) Stl P. shigelloides PCR Not Detected (NotDetected) Stl Shigella/EIEC PCR Not Detected (NotDetected) St Y.enterocolitica PCR Not Detected (NotDetected) Stool Vibrio (PCR) Not Detected (NotDetected) Stl Vibrio cholerae PCR Not Detected (NotDetected) Stl Norovirus GI/GII PCR Not Detected (NotDetected) Ethyl Alcohol mg/dL (<10.0) mg/dl Adenovirus (PCR) Not Detected (NotDetected) B. pertussis DNA (PCR) Not Detected (NotDetected) B.parapertussis DNA PCR Not Detected (NotDetected) C. pneumoniae DNA (PCR) Not Detected (NotDetected) Coronavirus OC43 (PCR) Not Detected (NotDetected) Coronavirus HKU1 (PCR) Not Detected (NotDetected) Coronavirus 229E (PCR) Not Detected (NotDetected) SARS-CoV-2 (PCR) Not Detected (NotDetected) Coronavirus NL63 (PCR) Not Detected (NotDetected) Human Metapneumovir PCR DETECTED A* (NotDetected) Influenza Type A (PCR) Not Detected (NotDetected) Influenza Type B (PCR) Not Detected (NotDetected) M. pneumoniae (PCR) Not Detected (NotDetected) Parainfluenza 1 (PCR) Not Detected (NotDetected) Parainfluenza 2 (PCR) Not Detected (NotDetected) Parainfluenza 3 (PCR) Not Detected (NotDetected) Parainfluenza 4 (PCR) Not Detected (NotDetected) RSV (PCR) Not Detected (NotDetected) Entero/Rhino (PCR) Not Detected (NotDetected) 09/16/22 09/16/22 09/16/22 Range/Units 09:42 09:42 09:42 WBC 2.34 L (4.8-10.8) K/ul RBC 4.04 L (4.20-5.40) M/uL Hgb 13.7 (12.0-16.0) g/dl Hct 34.4 L (37.0-47.0) % MCV 85.1 (80.0-100.0) fL MCH 33.9 (25.0-34.0) pg MCHC 39.8 H (32.0-36.0) g/dL RDW Std Deviation 38.0 (36.4-46.3) fL RDW Coeff of Elo 12.3 (11.5-14.5) % Plt Count 150 (130-400) K/uL MPV 9.3 L (9.4-12.4) fL Immature Gran % (Auto) 0.4 % Neut % (Auto) 65.4 % Lymph % (Auto) 21.8 % [place] % (Auto) 11.5 % Eos % (Auto) 0.0 % Baso % (Auto) 0.9 % Neut # (Auto) 1.53 (1.40-6.50) K/uL Lymph # (Auto) 0.51 L (1.2-3.4) K/uL [place] # (Auto) 0.27 (0.11-0.59) K/uL Eos # (Auto) 0.00 (0-0.50) K/uL Baso # (Auto) 0.02 (0-0.2) K/uL Immature Gran # (Auto) 0.01 (0.01-0.20) K/uL PT (9.0-12.0) Seconds INR (0.9-1.1) APTT (21.0-31.0) Seconds PTT Ratio Sodium 118 L* (136-145) mmol/L Potassium 3.2 L (3.5-5.1) mmol/L Chloride 84 L (98-107) mmol/L Carbon Dioxide 26 (21-32) mmol/L Anion Gap 8 (3-11) BUN 3 L (6-23) mg/dl Creatinine 0.27 L (0.6-1.2) mg/dl Est Cr Clr Drug Dosing 173.3 ml/min Est GFR ( Amer) 149.3 ml/min Est GFR (Non-Af Amer) 128.8 ml/min BUN/Creatinine Ratio 11.1 (10-20) Glucose 80 (70-99(Fasting)) mg/dl Osmolality (280-300) mOsm/kg Lactate (0.4-2.0) mmol/L Calcium 7.8 L (8.6-10.3) mg/dl Phosphorus (2.5-4.9) mg/dl Magnesium 1.4 L (1.7-2.4) mg/dl Total Bilirubin 0.4 (0.2-1.0) mg/dl Direct Bilirubin 0.1 (0-0.2) mg/dl AST 68 H (13-39) U/L ALT 24 (7-52) U/L Alkaline Phosphatase 88 (34-104) U/L Troponin I High Sens 21.3 H (0-14) pg/ml Total Protein 5.1 L (6.0-8.3) gm/dl Albumin 3.1 L (3.4-5.0) gm/dl Vitamin B12 (180-914) pg/ml Folate (>5.38) ng/ml Procalcitonin 0.07 (0-0.5) ng/ml Urine Color Urine Appearance (Clear) Urine pH (4.5-7.5) Ur Specific [place] (1.000-1.030) Urine Protein (Negative) Urine Glucose (UA) (Negative) Urine Ketones (Negative) Urine Blood (Negative) Urine Nitrite (Negative) Urine Bilirubin (Negative) Urine Urobilinogen (Negative) Ur Leukocyte Esterase (Negative) Urine Osmolality (500-800) mOsm/kg Ur Random Sodium mmol/L Stl C. cayetanensis PCR (NotDetected) Stool Rotavirus A PCR (NotDetected) Stl Adenov F 40/41 PCR (NotDetected) Stool Astrovirus (PCR) (NotDetected) Stool Campylobacter PCR (NotDetected) Stl C. diff Tox B Gene (Neg) Stool Cryptosporidium PCR (NotDetected) Stl E.coli Shiga Tox PCR (NotDetected) Stl Enterotoxigenic E PCR (NotDetected) Stool EPEC (PCR) (NotDetected) Stool EAEC (PCR) (NotDetected) Stl E. histolytica PCR (NotDetected) Stool Giardia Lamblia PCR (NotDetected) Stool Salmonella PCR (NotDetected) Stool Sapovirus (PCR) (NotDetected) Stl P. shigelloides PCR (NotDetected) Stl Shigella/EIEC PCR (NotDetected) St Y.enterocolitica PCR (NotDetected) Stool Vibrio (PCR) (NotDetected) Stl Vibrio cholerae PCR (NotDetected) Stl Norovirus GI/GII PCR (NotDetected) Ethyl Alcohol mg/dL (<10.0) mg/dl Adenovirus (PCR) (NotDetected) B. pertussis DNA (PCR) (NotDetected) B.parapertussis DNA PCR (NotDetected) C. pneumoniae DNA (PCR) (NotDetected) Coronavirus OC43 (PCR) (NotDetected) Coronavirus HKU1 (PCR) (NotDetected) Coronavirus 229E (PCR) (NotDetected) SARS-CoV-2 (PCR) (NotDetected) Coronavirus NL63 (PCR) (NotDetected) Human Metapneumovir PCR (NotDetected) Influenza Type A (PCR) (NotDetected) Influenza Type B (PCR) (NotDetected) M. pneumoniae (PCR) (NotDetected) Parainfluenza 1 (PCR) (NotDetected) Parainfluenza 2 (PCR) (NotDetected) Parainfluenza 3 (PCR) (NotDetected) Parainfluenza 4 (PCR) (NotDetected) RSV (PCR) (NotDetected) Entero/Rhino (PCR) (NotDetected) 09/16/22 09/16/22 09/16/22 Range/Units 09:42 09:42 09:49 WBC (4.8-10.8) K/ul RBC (4.20-5.40) M/uL Hgb (12.0-16.0) g/dl Hct (37.0-47.0) % MCV (80.0-100.0) fL MCH (25.0-34.0) pg MCHC (32.0-36.0) g/dL RDW Std Deviation (36.4-46.3) fL RDW Coeff of Elo (11.5-14.5) % Plt Count (130-400) K/uL MPV (9.4-12.4) fL Immature Gran % (Auto) % Neut % (Auto) % Lymph % (Auto) % [place] % (Auto) % Eos % (Auto) % Baso % (Auto) % Neut # (Auto) (1.40-6.50) K/uL Lymph # (Auto) (1.2-3.4) K/uL [place] # (Auto) (0.11-0.59) K/uL Eos # (Auto) (0-0.50) K/uL Baso # (Auto) (0-0.2) K/uL Immature Gran # (Auto) (0.01-0.20) K/uL PT 12.0 (9.0-12.0) Seconds INR 1.1 (0.9-1.1) APTT 35.4 H (21.0-31.0) Seconds PTT Ratio 1.3 Sodium (136-145) mmol/L Potassium (3.5-5.1) mmol/L Chloride (98-107) mmol/L Carbon Dioxide (21-32) mmol/L Anion Gap (3-11) BUN (6-23) mg/dl Creatinine (0.6-1.2) mg/dl Est Cr Clr Drug Dosing ml/min Est GFR ( Amer) ml/min Est GFR (Non-Af Amer) ml/min BUN/Creatinine Ratio (10-20) Glucose (70-99(Fasting)) mg/dl Osmolality (280-300) mOsm/kg Lactate (0.4-2.0) mmol/L Calcium (8.6-10.3) mg/dl Phosphorus (2.5-4.9) mg/dl Magnesium (1.7-2.4) mg/dl Total Bilirubin (0.2-1.0) mg/dl Direct Bilirubin (0-0.2) mg/dl AST (13-39) U/L ALT (7-52) U/L Alkaline Phosphatase (34-104) U/L Troponin I High Sens (0-14) pg/ml Total Protein (6.0-8.3) gm/dl Albumin (3.4-5.0) gm/dl Vitamin B12 (180-914) pg/ml Folate (>5.38) ng/ml Procalcitonin (0-0.5) ng/ml Urine Color Yellow Urine Appearance Clear (Clear) Urine pH 6.5 (4.5-7.5) Ur Specific [place] 1.006 (1.000-1.030) Urine Protein Negative (Negative) Urine Glucose (UA) Negative (Negative) Urine Ketones 2+ H (Negative) Urine Blood Negative (Negative) Urine Nitrite Negative (Negative) Urine Bilirubin Negative (Negative) Urine Urobilinogen Negative (Negative) Ur Leukocyte Esterase Negative (Negative) Urine Osmolality (500-800) mOsm/kg Ur Random Sodium mmol/L Stl C. cayetanensis PCR (NotDetected) Stool Rotavirus A PCR (NotDetected) Stl Adenov F 40/41 PCR (NotDetected) Stool Astrovirus (PCR) (NotDetected) Stool Campylobacter PCR (NotDetected) Stl C. diff Tox B Gene (Neg) Stool Cryptosporidium PCR (NotDetected) Stl E.coli Shiga Tox PCR (NotDetected) Stl Enterotoxigenic E PCR (NotDetected) Stool EPEC (PCR) (NotDetected) Stool EAEC (PCR) (NotDetected) Stl E. histolytica PCR (NotDetected) Stool Giardia Lamblia PCR (NotDetected) Stool Salmonella PCR (NotDetected) Stool Sapovirus (PCR) (NotDetected) Stl P. shigelloides PCR (NotDetected) Stl Shigella/EIEC PCR (NotDetected) St Y.enterocolitica PCR (NotDetected) Stool Vibrio (PCR) (NotDetected) Stl Vibrio cholerae PCR (NotDetected) Stl Norovirus GI/GII PCR (NotDetected) Ethyl Alcohol mg/dL < 10.0 (<10.0) mg/dl Adenovirus (PCR) (NotDetected) B. pertussis DNA (PCR) (NotDetected) B.parapertussis DNA PCR (NotDetected) C. pneumoniae DNA (PCR) (NotDetected) Coronavirus OC43 (PCR) (NotDetected) Coronavirus HKU1 (PCR) (NotDetected) Coronavirus 229E (PCR) (NotDetected) SARS-CoV-2 (PCR) (NotDetected) Coronavirus NL63 (PCR) (NotDetected) Human Metapneumovir PCR (NotDetected) Influenza Type A (PCR) (NotDetected) Influenza Type B (PCR) (NotDetected) M. pneumoniae (PCR) (NotDetected) Parainfluenza 1 (PCR) (NotDetected) Parainfluenza 2 (PCR) (NotDetected) Parainfluenza 3 (PCR) (NotDetected) Parainfluenza 4 (PCR) (NotDetected) RSV (PCR) (NotDetected) Entero/Rhino (PCR) (NotDetected) 09/16/22 09/16/22 09/16/22 Range/Units 09:49 10:20 12:10 WBC (4.8-10.8) K/ul RBC (4.20-5.40) M/uL Hgb (12.0-16.0) g/dl Hct (37.0-47.0) % MCV (80.0-100.0) fL MCH (25.0-34.0) pg MCHC (32.0-36.0) g/dL RDW Std Deviation (36.4-46.3) fL RDW Coeff of Elo (11.5-14.5) % Plt Count (130-400) K/uL MPV (9.4-12.4) fL Immature Gran % (Auto) % Neut % (Auto) % Lymph % (Auto) % [place] % (Auto) % Eos % (Auto) % Baso % (Auto) % Neut # (Auto) (1.40-6.50) K/uL Lymph # (Auto) (1.2-3.4) K/uL [place] # (Auto) (0.11-0.59) K/uL Eos # (Auto) (0-0.50) K/uL Baso # (Auto) (0-0.2) K/uL Immature Gran # (Auto) (0.01-0.20) K/uL PT (9.0-12.0) Seconds INR (0.9-1.1) APTT (21.0-31.0) Seconds PTT Ratio Sodium (136-145) mmol/L Potassium (3.5-5.1) mmol/L Chloride (98-107) mmol/L Carbon Dioxide (21-32) mmol/L Anion Gap (3-11) BUN (6-23) mg/dl Creatinine (0.6-1.2) mg/dl Est Cr Clr Drug Dosing ml/min Est GFR ( Amer) ml/min Est GFR (Non-Af Amer) ml/min BUN/Creatinine Ratio (10-20) Glucose (70-99(Fasting)) mg/dl Osmolality (280-300) mOsm/kg Lactate 1.1 (0.4-2.0) mmol/L Calcium (8.6-10.3) mg/dl Phosphorus (2.5-4.9) mg/dl Magnesium (1.7-2.4) mg/dl Total Bilirubin (0.2-1.0) mg/dl Direct Bilirubin (0-0.2) mg/dl AST (13-39) U/L ALT (7-52) U/L Alkaline Phosphatase (34-104) U/L Troponin I High Sens (0-14) pg/ml Total Protein (6.0-8.3) gm/dl Albumin (3.4-5.0) gm/dl Vitamin B12 (180-914) pg/ml Folate (>5.38) ng/ml Procalcitonin (0-0.5) ng/ml Urine Color Urine Appearance (Clear) Urine pH (4.5-7.5) Ur Specific [place] (1.000-1.030) Urine Protein (Negative) Urine Glucose (UA) (Negative) Urine Ketones (Negative) Urine Blood (Negative) Urine Nitrite (Negative) Urine Bilirubin (Negative) Urine Urobilinogen (Negative) Ur Leukocyte Esterase (Negative) Urine Osmolality 152 L (500-800) mOsm/kg Ur Random Sodium < 10 mmol/L Stl C. cayetanensis PCR (NotDetected) Stool Rotavirus A PCR (NotDetected) Stl Adenov F 40/41 PCR (NotDetected) Stool Astrovirus (PCR) (NotDetected) Stool Campylobacter PCR (NotDetected) Stl C. diff Tox B Gene (Neg) Stool Cryptosporidium PCR (NotDetected) Stl E.coli Shiga Tox PCR (NotDetected) Stl Enterotoxigenic E PCR (NotDetected) Stool EPEC (PCR) (NotDetected) Stool EAEC (PCR) (NotDetected) Stl E. histolytica PCR (NotDetected) Stool Giardia Lamblia PCR (NotDetected) Stool Salmonella PCR (NotDetected) Stool Sapovirus (PCR) (NotDetected) Stl P. shigelloides PCR (NotDetected) Stl Shigella/EIEC PCR (NotDetected) St Y.enterocolitica PCR (NotDetected) Stool Vibrio (PCR) (NotDetected) Stl Vibrio cholerae PCR (NotDetected) Stl Norovirus GI/GII PCR (NotDetected) Ethyl Alcohol mg/dL (<10.0) mg/dl Adenovirus (PCR) (NotDetected) B. pertussis DNA (PCR) (NotDetected) B.parapertussis DNA PCR (NotDetected) C. pneumoniae DNA (PCR) (NotDetected) Coronavirus OC43 (PCR) (NotDetected) Coronavirus HKU1 (PCR) (NotDetected) Coronavirus 229E (PCR) (NotDetected) SARS-CoV-2 (PCR) (NotDetected) Coronavirus NL63 (PCR) (NotDetected) Human Metapneumovir PCR (NotDetected) Influenza Type A (PCR) (NotDetected) Influenza Type B (PCR) (NotDetected) M. pneumoniae (PCR) (NotDetected) Parainfluenza 1 (PCR) (NotDetected) Parainfluenza 2 (PCR) (NotDetected) Parainfluenza 3 (PCR) (NotDetected) Parainfluenza 4 (PCR) (NotDetected) RSV (PCR) (NotDetected) Entero/Rhino (PCR) (NotDetected) 09/16/22 09/16/22 09/16/22 Range/Units 12:19 12:19 12:29 WBC (4.8-10.8) K/ul RBC (4.20-5.40) M/uL Hgb (12.0-16.0) g/dl Hct (37.0-47.0) % MCV (80.0-100.0) fL MCH (25.0-34.0) pg MCHC (32.0-36.0) g/dL RDW Std Deviation (36.4-46.3) fL RDW Coeff of Elo (11.5-14.5) % Plt Count (130-400) K/uL MPV (9.4-12.4) fL Immature Gran % (Auto) % Neut % (Auto) % Lymph % (Auto) % [place] % (Auto) % Eos % (Auto) % Baso % (Auto) % Neut # (Auto) (1.40-6.50) K/uL Lymph # (Auto) (1.2-3.4) K/uL [place] # (Auto) (0.11-0.59) K/uL Eos # (Auto) (0-0.50) K/uL Baso # (Auto) (0-0.2) K/uL Immature Gran # (Auto) (0.01-0.20) K/uL PT (9.0-12.0) Seconds INR (0.9-1.1) APTT (21.0-31.0) Seconds PTT Ratio Sodium 121 L (136-145) mmol/L Potassium 3.2 L (3.5-5.1) mmol/L Chloride 88 L (98-107) mmol/L Carbon Dioxide 25 (21-32) mmol/L Anion Gap 8 (3-11) BUN 4 L (6-23) mg/dl Creatinine 0.33 L (0.6-1.2) mg/dl Est Cr Clr Drug Dosing 141.8 ml/min Est GFR ( Amer) 139.8 ml/min Est GFR (Non-Af Amer) 120.6 ml/min BUN/Creatinine Ratio 12.1 (10-20) Glucose 108 H (70-99(Fasting)) mg/dl Osmolality 249 L (280-300) mOsm/kg Lactate (0.4-2.0) mmol/L Calcium 7.6 L (8.6-10.3) mg/dl Phosphorus 2.8 (2.5-4.9) mg/dl Magnesium (1.7-2.4) mg/dl Total Bilirubin (0.2-1.0) mg/dl Direct Bilirubin (0-0.2) mg/dl AST (13-39) U/L ALT (7-52) U/L Alkaline Phosphatase (34-104) U/L Troponin I High Sens (0-14) pg/ml Total Protein (6.0-8.3) gm/dl Albumin (3.4-5.0) gm/dl Vitamin B12 129 L (180-914) pg/ml Folate 20.08 (>5.38) ng/ml Procalcitonin (0-0.5) ng/ml Urine Color Urine Appearance (Clear) Urine pH (4.5-7.5) Ur Specific [place] (1.000-1.030) Urine Protein (Negative) Urine Glucose (UA) (Negative) Urine Ketones (Negative) Urine Blood (Negative) Urine Nitrite (Negative) Urine Bilirubin (Negative) Urine Urobilinogen (Negative) Ur Leukocyte Esterase (Negative) Urine Osmolality (500-800) mOsm/kg Ur Random Sodium mmol/L Stl C. cayetanensis PCR (NotDetected) Stool Rotavirus A PCR (NotDetected) Stl Adenov F 40/41 PCR (NotDetected) Stool Astrovirus (PCR) (NotDetected) Stool Campylobacter PCR (NotDetected) Stl C. diff Tox B Gene (Neg) Stool Cryptosporidium PCR (NotDetected) Stl E.coli Shiga Tox PCR (NotDetected) Stl Enterotoxigenic E PCR (NotDetected) Stool EPEC (PCR) (NotDetected) Stool EAEC (PCR) (NotDetected) Stl E. histolytica PCR (NotDetected) Stool Giardia Lamblia PCR (NotDetected) Stool Salmonella PCR (NotDetected) Stool Sapovirus (PCR) (NotDetected) Stl P. shigelloides PCR (NotDetected) Stl Shigella/EIEC PCR (NotDetected) St Y.enterocolitica PCR (NotDetected) Stool Vibrio (PCR) (NotDetected) Stl Vibrio cholerae PCR (NotDetected) Stl Norovirus GI/GII PCR (NotDetected) Ethyl Alcohol mg/dL (<10.0) mg/dl Adenovirus (PCR) (NotDetected) B. pertussis DNA (PCR) (NotDetected) B.parapertussis DNA PCR (NotDetected) C. pneumoniae DNA (PCR) (NotDetected) Coronavirus OC43 (PCR) (NotDetected) Coronavirus HKU1 (PCR) (NotDetected) Coronavirus 229E (PCR) (NotDetected) SARS-CoV-2 (PCR) (NotDetected) Coronavirus NL63 (PCR) (NotDetected) Human Metapneumovir PCR (NotDetected) Influenza Type A (PCR) (NotDetected) Influenza Type B (PCR) (NotDetected) M. pneumoniae (PCR) (NotDetected) Parainfluenza 1 (PCR) (NotDetected) Parainfluenza 2 (PCR) (NotDetected) Parainfluenza 3 (PCR) (NotDetected) Parainfluenza 4 (PCR) (NotDetected) RSV (PCR) (NotDetected) Entero/Rhino (PCR) (NotDetected) Administered Medications Discontinued Medications Hydrocortisone Sodium Succinate (Hydrocortisone Sod Succinate 100 Mg/2 Ml Vial) 100 mg IV NOW STA Stop: 09/16/22 09:34 Last Admin: 09/16/22 09:52 Dose: 100 mg Documented By: POPEYE Sodium Chloride (Nss 1000ml) 1,000 mls @ 999 mls/hr IV .Q1H1M YOUNG Stop: 09/16/22 11:45 Last Infusion: 09/16/22 11:20 Dose: 0 mls/hr Documented By: Admin: 09/16/22 10:14 Dose: 999 mls/hr Documented By: Infusion: 09/16/22 10:14 Dose: 999 mls/hr Documented By: Admin: 09/16/22 09:40 Dose: 999 mls/hr Documented By: HS Cefepime HCl (Maxipime) 2,000 mg in 20 mls @ 5 mls/min IV NOW STA; Protocol Stop: 09/16/22 09:36 Last Admin: 09/16/22 10:13 Dose: 5 mls/min Documented By: HS Acetaminophen (Ofirmev) 1,000 mg in 100 mls @ 400 mls/hr IV NOW STA Stop: 09/16/22 09:47 Last Infusion: 09/16/22 11:00 Dose: 0 mls/hr Documented By: Admin: 09/16/22 09:52 Dose: 400 mls/hr Documented By: HS Calcium Gluconate () 1,000 mg in 60 mls @ 240 mls/hr IV NOW STA Stop: 09/16/22 10:59 Last Infusion: 09/16/22 11:20 Dose: 0 mls/hr Documented By: Admin: 09/16/22 11:05 Dose: 240 mls/hr Documented By: ANNETTA Magnesium Sulfate/Dextrose (Magnesium Sulfate / D5w) 1 gm in 100 mls @ 100 mls/hr IV Q1H YOUNG Stop: 09/16/22 14:44 Last Infusion: 09/16/22 13:10 Dose: 0 mls/hr Documented By: Admin: 09/16/22 12:09 Dose: 100 mls/hr Documented By: Infusion: 09/16/22 12:09 Dose: 100 mls/hr Documented By: Admin: 09/16/22 11:14 Dose: 100 mls/hr Documented By: ANNETTA Sodium Chloride (Nss 1000ml) 1,000 mls @ 999 mls/hr IV .Q1H1M ONE Stop: 09/16/22 12:32 Last Infusion: 09/16/22 12:22 Dose: 0 mls/hr Documented By: Admin: 09/16/22 12:10 Dose: 999 mls/hr Documented By: ANNETTA Ondansetron HCl (Ondansetron Inj 2 Mg/Ml 2 Ml Vial) 4 mg IV NOW STA Stop: 09/16/22 09:34 Last Admin: 09/16/22 09:52 Dose: 4 mg Documented By: HS Potassium Chloride (Potassium Chloride Crtab 20 Meq Tabcr) 40 meq PO NOW STA Stop: 09/16/22 12:18 Last Admin: 09/16/22 13:32 Dose: 40 meq Documented By: ANNETTA Imaging Data Radiologist's Impression: Chest X-Ray 09/16/22 09:33 XR chest 1V portable CLINICAL HISTORY: Sepsis. COMPARISON STUDY: Chest CT October 22, 2019. Chest radiograph April 07, 2022. FINDINGS: Old, healed proximal right humeral fracture is noted. There are multiple old, healed bilateral rib fractures. Bilateral clavicular and left humeral internal fixations are incidentally noted. No pneumothorax or pleural effusion. There is no consolidation to suggest pneumonia. No evidence for pulmonary edema. Cardiomediastinal silhouette is stable. IMPRESSION: No acute cardiopulmonary findings. No significant change in appearance of the chest. ACT 112: Negative or not required by law. Electronically signed by: Gigi Dia M.D. 09/16/2022 10:37 AM Abdomen/Pelvis CT 09/16/22 09:[address] WITHOUT CONTRAST CT DOSE: HISTORY: diarrhea, poss colitis TECHNIQUE: Multiaxial CT images of the abdomen and pelvis were performed without contrast. A dose lowering technique was utilized adhering to the principles of ALARA. COMPARISON STUDY: Abdomen and pelvis CT 10/23/2021. FINDINGS: There is sclerosis and moderate loss of height within the T12 vertebral body which favors a subacute to chronic fracture. Mild paravertebral fat stranding/edema at this level. This demonstrates up to 3 mm of retropulsion and mild central canal narrowing at this level. Focal central lucency at the T12 vertebral body which measures 11 mm which is likely due to the nonunited fracture. A pathologic fracture in the setting of underlying lesion or infection is considered less likely but not entirely excluded. Internal fixation of an old, healed right pelvic fracture is noted. There are old, healed bilateral pubic ring fractures identified. Old, healed sacral fracture is noted. Old transverse process fractures within the left side of the lumbar spine. Old bilateral rib fractures are noted. No definite acute fractures identified. Levoscoliosis of the lumbar spine. A few patchy airspace opacities within the lung bases with tree-in-bud nodular opacities and partial opacification of the distal bronchi. This is consistent with a pneumonia and likely due to aspiration. No pneumoperitoneum. No pneumatosis. Superficial soft tissue thickening at the sacrum. No underlying bony destruction to suggest an osteomyelitis at this time. The unenhanced liver, spleen, adrenal glands, pancreas, and kidneys unremarkable. No hydronephrosis. No retroperitoneal lymphadenopathy. Mild calcified plaque within the normal caliber abdominal aorta. Multiple gallstones are again noted. No gallbladder wall thickening. The gallbladder is decompressed. No retroperitoneal or pelvic lymphadenopathy. No pelvic free fluid. The uterus and adnexa are unremarkable. Mild left anterior bladder wall thickening. Suboptimal evaluation for bowel pathology due to the lack of intravenous and oral contrast. However, there is no definite bowel wall thickening or obstruction. Fluid-filled large and small bowel is noted. IMPRESSION: 1. Fluid-filled nondilated loops of large and small bowel seen throughout the abdomen. This favors a diarrheal illness/gastroenteritis. 2. No evidence for a bowel obstruction. 3. Cholelithiasis. No gallbladder wall thickening. 4. A few patchy airspace opacities within the lung bases with tree-in-bud nodular opacities and partial opacification of the distal bronchi. This is consistent with a pneumonia and likely due to aspiration. 5. Mild left anterior bladder wall thickening. Recommend correlation with urinalysis. 6. Multiple old, healed fractures as described above. 7. There is sclerosis and moderate loss of height within the T12 vertebral body which favors a subacute to chronic fracture. Mild paravertebral fat stranding/edema is noted at this level. Focal central lucency at the T12 vertebral body which measures 11 mm which is likely due to the nonunited fracture. A pathologic fracture in the setting of an underlying lesion or infection is considered less likely but not entirely excluded. ACT 112: Negative or not required by law. Electronically signed by: Gerald Cee M.D. 09/16/2022 11:[address] 09/16/22 09:39 CT OF THE HEAD WITHOUT CONTRAST CLINICAL HISTORY: Confusion. COMPARISON STUDY: Head CT October 22, 2019. CT DOSE: 871.14 mGy.cm TECHNIQUE: Helical axial images of the head were obtained without IV contrast. Automated exposure control was utilized for the study. A dose lowering technique was utilized adhering to the principles of ALARA. FINDINGS: No acute intracranial hemorrhage, midline shift or mass effect is present. White matter hypodensity suggests small vessel disease. Ventricular system is unremarkable. The basal cisterns are patent. No extra-axial collections are present. There are no findings to suggest acute dural sinus thrombosis or acute territorial infarct. No significant calvarial abnormalities are present. Visualized portions of the sinuses and mastoid air cells are clear. IMPRESSION: No acute intracranial findings. ACT 112: Negative or not required by law. Electronically signed by: Gigi Dia M.D. 09/16/2022 11:10 AM Discharge Plan Visit Data Chief Complaint: Pain (Generalized) Stated Complaint: HURTS ALL OVER ED Provider: Samir Salguero Discharge Problem: Hypotension, Infection due to human metapneumovirus (hMPV), Diarrhea, Acute hyponatremia, Hypocalcemia, Hypomagnesemia, Acute dehydration Patient Disposition: Admitted As Inpatient Condition: Fair Forms Stand Alone Forms: [facility] Prescriptions Prescriptions: No Action pravastatin 10 mg tablet 10 mg PO DAILY folic acid 1 mg tablet 1 mg PO DAILY cholecalciferol (vitamin D3) [Vitamin D3] 50 mcg (2,000 unit) capsule 2,000 mcg PO DAILY alendronate 70 mg tablet 70 mg PO WK Rx Instructions: LAST FILLED 06/16/21 FOR 84 DAYS. pantoprazole 20 mg tablet,delayed release (DR/EC) 20 mg PO DAILY ferrous sulfate 325 mg (65 mg iron) tablet 325 mg PO BID fluticasone propionate 50 mcg/actuation spray,suspension 2 spray INTRANASAL DAILY potassium chloride 10 mEq capsule, extended release 20 meq PO BID Creon 36,000-114,000- 180,000 unit Capsule,Delayed Release(Dr/Ec) 1 cap PO AC Qty: 90 0RF fluticasone propionate [Flovent HFA] 110 mcg/actuation HFA aerosol inhaler 1 inh INHALATION BID Combivent Respimat 20-100 mcg/actuation mist 1 puff INHALATION BID diphenhydramine HCl [Benadryl] 25 mg Capsule 25 mg PO [id number] PRN (Reason: itching) Qty: 30 0RF polyethylene glycol 3350 [Miralax] 17 gram Powder In Packet 17 g PO DAILY PRN (Reason: constipation) Qty: 30 0RF hydrocortisone [Cortef] 10 mg Tablet 20 mg PO QAM Qty: 30 0RF hydrocortisone [Cortef] 10 mg Tablet 10 mg PO DAILY@1500 Qty: 30 0RF thiamine HCl (vitamin B1) 100 mg tablet 100 mg PO DAILY Qty: 30 0RF oxycodone 5 mg Tablet 5 - 10 mg PO Q4H Qty: 20 0RF aspirin [Sherri Chewable Aspirin] 81 mg tablet,chewable 81 mg PO BID Qty: 60 0RF Referrals Referrals: Darian Lopez [Primary Care Provider] - Hypotension Qualifiers: Hypotension type: unspecified hypotension type Qualified Code(s): I95.9 - Hypotension, unspecified Diarrhea Qualifiers: Diarrhea type: unspecified type Qualified Code(s): R19.7 - Diarrhea, unspecified
[2022-09-16] MEDS: SODIUM CHLORIDE 0.9% 1000ML 1,000 ML IV SCH ×2 (09:40→10:14)
[2022-09-16 10:22] LABS: Appearance Urine Clear (Clear); Bilirubin Urine Negative (Negative); Blood Urine Negative (Negative); Color Urine Yellow; Glucose Urine UA Negative (Negative); Ketones Urine 2+ (Negative); Leukocyte Esterase Urine Negative (Negative); Nitrite Urine Negative (Negative); Protein Urine Negative (Negative); Specific Gravity Urine 1.006 (1.000-1.030); Urobilinogen Urine Negative (Negative); pH Urine 6.5 (4.5-7.5)
--- NOTE | 2022-09-16 10:38 | XRay Report ---
XR chest 1V portable CLINICAL HISTORY: Sepsis. COMPARISON STUDY: Chest CT October 22, 2019. Chest radiograph April 07, 2022. FINDINGS: Old, healed proximal right humeral fracture is noted. There are multiple old, healed bilate ral rib fractures. Bilateral clavicular and left humeral internal fixations are incidentally noted. N o pneumothorax or pleural effusion. There is no consolidation to suggest pneumonia. No evidence for p ulmonary edema. Cardiomediastinal silhouette is stable. IMPRESSION: No acute cardiopulmonary findings. No significant change in appearance of the chest. ACT 112: Negative or not required by law. Electronically signed by: Gigi Dia M.D. 09/16/2022 10:37 AM
[2022-09-16 10:43] LABS: Albumin Level 3.1 gm/dl (3.4-5.0); BUN Creatinine Ratio 11.1 (10-20); Bilirubin Direct 0.1 mg/dl (0-0.2); Bilirubin,Total 0.4 mg/dl (0.2-1.0); Calcium 7.8 mg/dl (8.6-10.3); Creatinine Clr Calc Pharmacy 173.3 ml/min; Est GFR (African American) 149.3 ml/min; Est GFR (Non-African American) 128.8 ml/min; Magnesium 1.4 mg/dl (1.7-2.4); Potassium 3.2 mmol/L (3.5-5.1); Total Protein 5.1 gm/dl (6.0-8.3); Troponin I High Sensitivity 21.3 pg/ml (0-14)
[2022-09-16] MEDS ORDERED: CALCIUM GLUCONATE 1,000 MG/60 ML BAG IV STA (10:45)
[2022-09-16 10:48] LABS: INR 1.1 (0.9-1.1); Partial Thromboplastin Ratio 1.3; Partial Thromboplastin Time 35.4 Seconds (21.0-31.0)
--- NOTE | 2022-09-16 11:12 | CT Scan Report ---
CT OF THE HEAD WITHOUT CONTRAST CLINICAL HISTORY: Confusion. COMPARISON STUDY: Head CT October 22, 2019. CT DOSE: 871.14 mGy.cm TECHNIQUE: Helical axial images of the head were obtained without IV contrast. Automated exposure con trol was utilized for the study. A dose lowering technique was utilized adhering to the principles o f ALARA. FINDINGS: No acute intracranial hemorrhage, midline shift or mass effect is present. White matter hyp odensity suggests small vessel disease. Ventricular system is unremarkable. The basal cisterns are pa tent. No extra-axial collections are present. There are no findings to suggest acute dural sinus thro mbosis or acute territorial infarct. No significant calvarial abnormalities are present. Visualized p ortions of the sinuses and mastoid air cells are clear. IMPRESSION: No acute intracranial findings. ACT 112: Negative or not required by law. Electronically signed by: Gigi Dia M.D. 09/16/2022 11:10 AM
[2022-09-16] MEDS: MAGNESIUM SULFATE / D5W 1 GM/100 ML BAG IV SCH ×4 (11:14→17:46)
[2022-09-16 11:16] LABS: Hematocrit (blood only) 34.4 % (37.0-47.0); Hemoglobin 13.7 g/dl (12.0-16.0); Mean Corpuscular Hemoglobin 33.9 pg (25.0-34.0); Mean Corpuscular Hgb Conc 39.8 g/dL (32.0-36.0); Mean Corpuscular Volume 85.1 fL (80.0-100.0); Mean Platelet Volume 9.3 fL (9.4-12.4); Platelet Count 150 K/uL (130-400); RDW Coefficient of Variation 12.3 % (11.5-14.5); Red Blood Count 4.04 M/uL (4.20-5.40); White Blood Count 2.34 K/ul (4.8-10.8)
[2022-09-16 11:24] LABS: Adenovirus PCR Not Detected (NotDetected); Bordetella parapertussis PCR Not Detected (NotDetected); Bordetella pertussis PCR Not Detected (NotDetected); Chlamydia pneumoniae PCR Not Detected (NotDetected); Coronavirus 229E PCR Not Detected (NotDetected); Coronavirus CoV-2 (COVID19)PCR Not Detected (NotDetected); Coronavirus HKU1 PCR Not Detected (NotDetected); Coronavirus NL63 PCR Not Detected (NotDetected); Coronavirus OC43PCR Not Detected (NotDetected); Influenza A PCR Not Detected (NotDetected); Influenza B PCR Not Detected (NotDetected); Mycoplasma pneumoniae PCR Not Detected (NotDetected); Parainfluenza Virus 1 PCR Not Detected (NotDetected); Parainfluenza Virus 2 PCR Not Detected (NotDetected); Parainfluenza Virus 3 PCR Not Detected (NotDetected); Parainfluenza Virus 4 PCR Not Detected (NotDetected); Respiratory Syncytial VirusPCR Not Detected (NotDetected); Rhinovirus/Enterovirus PCR Not Detected (NotDetected)
[2022-09-16 11:30] LABS: Basophils # (auto) 0.02 K/uL (0-0.2); Basophils % (auto) 0.9 %; Immature Granulocytes # (auto) 0.01 K/uL (0.01-0.20); Immature Granulocytes % (auto) 0.4 %; Lymphocytes # (auto) 0.51 K/uL (1.2-3.4); Lymphocytes % (auto) 21.8 %; Monocytes # (auto) 0.27 K/uL (0.11-0.59); Monocytes % (auto) 11.5 %; Neutrophils # (auto) 1.53 K/uL (1.40-6.50); Neutrophils % (auto) 65.4 %
[2022-09-16] MEDS ORDERED: SODIUM CHLORIDE 0.9% 1000ML 1,000 ML IV ONE (11:32)
--- NOTE | 2022-09-16 12:00 | CT Scan Report ---
ABDOMEN AND PELVIS CT WITHOUT CONTRAST CT DOSE: HISTORY: diarrhea, poss colitis TECHNIQUE: Multiaxial CT images of the abdomen and pelvis were performed without contrast. A dose lo wering technique was utilized adhering to the principles of ALARA. COMPARISON STUDY: Abdomen and pelvis CT 10/23/2021. FINDINGS: There is sclerosis and moderate loss of height within the T12 vertebral body which favors a subacute to chronic fracture. Mild paravertebral fat stranding/edema at this level. This demonstrate s up to 3 mm of retropulsion and mild central canal narrowing at this level. Focal central lucency at the T12 vertebral body which measures 11 mm which is likely due to the nonunited fracture. A patholo gic fracture in the setting of underlying lesion or infection is considered less likely but not entir bernadine excluded. Internal fixation of an old, healed right pelvic fracture is noted. There are old, heal ed bilateral pubic ring fractures identified. Old, healed sacral fracture is noted. Old transverse pr ocess fractures within the left side of the lumbar spine. Old bilateral rib fractures are noted. No d efinite acute fractures identified. Levoscoliosis of the lumbar spine. A few patchy airspace opacitie s within the lung bases with tree-in-bud nodular opacities and partial opacification of the distal br onchi. This is consistent with a pneumonia and likely due to aspiration. No pneumoperitoneum. No pneu matosis. Superficial soft tissue thickening at the sacrum. No underlying bony destruction to suggest an osteomyelitis at this time. The unenhanced liver, spleen, adrenal glands, pancreas, and kidneys un remarkable. No hydronephrosis. No retroperitoneal lymphadenopathy. Mild calcified plaque within the n ormal caliber abdominal aorta. Multiple gallstones are again noted. No gallbladder wall thickening. T he gallbladder is decompressed. No retroperitoneal or pelvic lymphadenopathy. No pelvic free fluid. T he uterus and adnexa are unremarkable. Mild left anterior bladder wall thickening. Suboptimal evaluat ion for bowel pathology due to the lack of intravenous and oral contrast. However, there is no defini te bowel wall thickening or obstruction. Fluid-filled large and small bowel is noted. IMPRESSION: 1. Fluid-filled nondilated loops of large and small bowel seen throughout the abdomen. This favors a diarrheal illness/gastroenteritis. 2. No evidence for a bowel obstruction. 3. Cholelithiasis. No gallbladder wall thickening. 4. A few patchy airspace opacities within the lung bases with tree-in-bud nodular opacities and parti al opacification of the distal bronchi. This is consistent with a pneumonia and likely due to aspirat ion. 5. Mild left anterior bladder wall thickening. Recommend correlation with urinalysis. 6. Multiple old, healed fractures as described above. 7. There is sclerosis and moderate loss of height within the T12 vertebral body which favors a subacu te to chronic fracture. Mild paravertebral fat stranding/edema is noted at this level. Focal central lucency at the T12 vertebral body which measures 11 mm which is likely due to the nonunited fracture. A pathologic fracture in the setting of an underlying lesion or infection is considered less likely but not entirely excluded. ACT 112: Negative or not required by law. Electronically signed by: Gerald Cee M.D. 09/16/2022 11:59 AM
[2022-09-16 12:11] LABS: Human Metapneumovirus PCR DETECTED (NotDetected)
[2022-09-16] MEDS ORDERED: MAGNESIUM SULFATE / D5W 1 GM/100 ML BAG IV SCH (12:15)
[2022-09-16] MEDS ORDERED: POTASSIUM CHLORIDE CRTAB 20 MEQ TABCR PO STA (12:17)
--- NOTE | 2022-09-16 12:25 | History & Physical Report ---
Date of Service September 16, 2022 Assessment & Plan (1) Weakness: Plan: presented with weakness/ongoing diarrhea as outpatient . reported not having her medications for about 3 months or so in patient w/ chronic adrenal insufficiency to be on steroids at baseline, also alcohol use chronic Admit to PCU +for human-metapneumovirus Lactic normal but taken after first liter IVF No further IVF CT head negative for acute process -- can consider MRI of brain if continued issues w/ treatment Given hydrocortisone 100mg IV in ER, will continue 50mg IV Q8H given adrenal insufficiency Monitor BMP Q8H w/ sodium levels however appears to be chronic issue. Check urine osm/na, serum osm Supportive care for her human-metapneumovirus. Duonebs as needed, incentive spirometer, flutter valve. Mucinex BID for mucus plugging. Speech consult for possible aspiration however denied issues w/ swallowing. Will hold off abx at this time. UA negative. No fevers reported. If spikes temp can start empiric. Was given Cefepime in ER Blood cultures pending Stool PCR/cdiff for diarrhea NEGATIVE PPI for GI proph given gastritis, possibly due to alcohol use AWSS at risk, however denied having issues in the past Check B12/folate/B1, replacement if indicated. Will place on high dose thiamine as well given her alcohol use Check UDS. Alcohol level negative on arrival Mag 1.4 -- IV replacement Check phos, consider nutrition consult given malnutrition likely from alcohol use Monitor labs on repeat Of note, will need new rx fills for ALL HER MEDICATIONS AT DC. Will consult for assistance w/ dc planning (2) Leg edema: Plan: observed on exam, RLE >LLE swelling check venous doppler stat to r/o DVT (3) Infection due to human metapneumovirus (hMPV): Plan: supportive care, do not suspect has secondary bacterial infection at this time. leukopenia c/w viral process. Denied fevers at home Incentive spirometer, flutter valve, mucinex BID, sputum cx if able to produce Speech consult for possible aspiration issues Supplemental O2 to maintain sats -- also on stress dose steroids for adrenal insufficiency Mag replacement (4) Adrenal insufficiency: Plan: IV hydrocortisone in ER, continue stress dose steroids holding off further IVF and monitor BP w/ stress dose No further lightheaded/dizziness w/ such (5) COPD (chronic obstructive pulmonary disease): Plan: as above, not on supplemental O2 at baseline (6) Hyponatremia: Plan: acute on chronic hydrocortisone for susp adrenal insuff check tsh in AM check urine studies/serum osm monitor serial BMP (7) Diarrhea: Plan: reported, PCR stool negative suspect related to alcohol use as well as adrenal insufficiency not taking her meds at home (8) GERD (gastroesophageal reflux disease): Plan: place on protonix while inpatient aspiration precautions, speech consult (9) Frequent falls: Plan: PT/OT consults consider brain MRI (10) Alcohol use: Plan: check b1/b12/folate high dose thiamine ordered, start B12/folate supp after labs drawn (11) Hypoxia: Plan: Aim O2 sats 88-92% History of Present Illness Chief Complaint: weakness, diarrhea Primary Care Provider: Darian Lopez 61yo female, PMHx significant for adrenal insufficiency, alcohol use, COPD presented with EMS with complaints of weakness and hadn't been taking her medications at home for several days and having ongoing diarrhea. Had reported drinking alcohol. BPs systolic in the 70-80s. Hypoxic to 70s, improved on 2L NC. Stated more left than right sided weakness but not more weak on one side. Falls at home States she hasn't taken her medications for about 3 months. Doesn't drink everyday but does report use. Will not elaborate on how much. Last drink Friday. No evidence for DTs at present. Denied any issues when not drinking in the past/ICU admission. Of note, to be on steroids chronically however she notes she hasn't had these for months as well. Has been having diarrhea on/off for several weeks. Sometimes worse than others. Liquid brown, denies any pain. Denies any relation to specific foods or blood in her stool. Smoking about 1-2 cigarettes a day. Previously stated feeling lightheaded/dizzy prior to arrival however she notes since steroids she does not have that sensation at present. Denies any shortness of breath at present, but discussed lung exam/imaging and viral testing. She had her oxygen down below her face, SpO2 to 70s, rebounded to 93% w/ 2L replacement. Denies any chest pain at present or pain to any specific location. Endorses weakness/falls at home. Has some RLE edema worse than the left leg, but no calf tenderness at present. Discussed further testing and treatment. Full code at this time. Of note, left eye w/ slight elargement compared to the right but denied any visual symptoms/changes at present. Unclear if chronic finding. CT head negative ER Course: Given 2L IVF, stopped 3rd liter as did not seem overly dehydrated after first 2L and on labs. Noted lactic drawn AFTER first liter provided. CT head negative. CXR negative however tree in bud opacities in base of CTAP. CRAP w/ diarrheal illness/gastroenteritis. No obstruction. Cholelithiasis. Few patchy airspace opacities within lung bases w/ tree-in-bud nodular opaticites. partial opacification distal bronchi. ?aspiration. Old rib fractures. Mild left bladder wall thickening. There is sclerosis and moderate loss of height within the T12 vertebral body which favors a subacute to chronic fracture. Mild paravertebral fat stranding/edema is noted at this level. Focal central lucency at the T12 vertebral body which measures 11 mm which is likely due to the nonunited fracture. A pathologic fracture in the setting of an underlying lesion or infection is considered less likely but not entirely excluded. UA w/ 2+ ketones. CBC w/ leukopenia c/w viral process. Na 118. K 3.2. BUN/Cr 3/.27. Mag 1.4 Allergies Allergy/AdvReac Type Severity Reaction Status Date / Time Penicillins Allergy Intermediate Rash Verified 10/23/21 18:43 Home Medications Medication Instructions Recorded Confirmed Type cholecalciferol (vitamin D3) 50 2,000 mcg PO DAILY 06/19/19 10/23/21 History mcg (2,000 unit) capsule (Vitamin D3) folic acid 1 mg tablet 1 mg PO DAILY 06/19/19 10/23/21 History pravastatin 10 mg tablet 10 mg PO DAILY 06/19/19 10/23/21 History alendronate 70 mg tablet 70 mg PO WK 02/24/21 10/23/21 History ferrous sulfate 325 mg (65 mg 325 mg PO BID 02/24/21 10/23/21 History iron) tablet fluticasone propionate 50 2 spray intranasal DAILY 02/24/21 10/23/21 History mcg/actuation nasal spray,suspension pantoprazole 20 mg tablet,delayed 20 mg PO DAILY 02/24/21 10/23/21 History release potassium chloride 10 mEq 20 meq PO BID 02/24/21 10/23/21 History capsule,extended release [id number] 1 cap PO AC #90 caps 03/08/21 10/23/21 Rx 36,000-114,000-180,000 unit capsule,delay rel (Creon) fluticasone propionate 110 1 inh inhalation BID 10/23/21 10/23/21 History mcg/actuation HFA aerosol inhaler (Flovent HFA) ipratropium 20 mcg-albuterol 100 1 puff inhalation BID 10/23/21 10/23/21 History mcg/actuation mist for inhalation (Combivent Respimat) diphenhydramine HCl 25 mg capsule 25 mg PO [id number] PRN itching #30 10/30/21 Rx (Benadryl) caps hydrocortisone 10 mg tablet 10 mg PO DAILY@1500 #30 tabs 10/30/21 Rx (Cortef) hydrocortisone 10 mg tablet 20 mg PO QAM #30 tabs 10/30/21 Rx (Cortef) polyethylene glycol 3350 17 gram 17 g PO DAILY PRN constipation #30 10/30/21 Rx oral powder packet (Miralax) ea thiamine HCl (vitamin B1) 100 mg 100 mg PO DAILY #30 tabs 10/30/21 Rx tablet aspirin 81 mg chewable tablet 81 mg PO BID #60 tabs 04/10/22 Rx (Sherri Chewable Low Dose Aspirin) oxycodone 5 mg tablet 5 - 10 mg PO Q4H #20 tabs 04/10/22 Rx Past Med/Surg History Medical History COPD (chronic obstructive pulmonary disease) GERD (gastroesophageal reflux disease) History of alcohol abuse Hyperlipidemia Hypertension Hypokalemia Hyponatremia Hypotension Osteoporosis Protein calorie malnutrition Rheumatoid arthritis Surgical History S/P section Family History Other No significant family history Social History Smoking Status: Current every day smoker Cigarettes Per Day: 1-2/day; Second Hand Exposure: Yes; Hx Alcohol Use: Yes Alcohol type: beer Hx Substance Use: Yes Preferred Language: Kiswahili Communication Ability: Effective Corporate Training Manager Required: No Beliefs That Will Affect Care: None marital status: Single Current Living Situation: Significant Other Current Living Situation Comment: lives with boyfriend current occupational status: unemployed Feels Safe at Home: Yes Assistive Devices: Walker Physical Exam Physical Exam: General: chronically ill appearing female sitting in bed, requesting for bed to be elevated, chronic cough, raspy voice, NAD alert to person, stated year 2022, in [employer] HEENT: head normocephalic, ?L eye pupil slightly large but reactive, EOMI, trachea midline Resp: diffuse rales/wheezing bilaterally, crackles in the base, no tachypnea, nasal cannula below face upon entry with SpO2 in 70s, improved to 93-95% on 2L with good waveform CV: regular rate/rhythm, no significant m/r, bilateral edema noted with R>L swelling, no erythema or calf tenderness but pulses slightly diminished more on the right GI: +BS, slightly distended, : no allen MSK/Neuro: moves all extremities, no focal deficit, follows commands, strength equal bilaterally Psych: alert to person/place/year Results & Data Results & Data Vital Signs (Past 12 Hours) Vital Signs Temp Pulse Resp BP Pulse Ox O2 Del Method O2 Flow Rate 09/16/22 10:30 82 24 97 09/16/22 10:30 88/50 L 09/16/22 10:00 90 23 09/16/22 10:00 91/61 L 09/16/22 09:30 90 25 H 91 09/16/22 09:30 81/58 L 09/16/22 09:28 96/57 L 09/16/22 09:28 90 27 H 90 09/16/22 09:27 94 H 23 85 L 09/16/22 10:18 90 Nasal Cannula 1 09/16/22 09:33 36.9 C 89 20 89/56 L 89 L Room Air 09/16/22 09:31 89 Laboratory Results 09/16/22 09/16/22 09/16/22 Range/Units 12:29 12:19 12:19 WBC (4.8-10.8) K/ul RBC (4.20-5.40) M/uL Hgb (12.0-16.0) g/dl Hct (37.0-47.0) % MCV (80.0-100.0) fL MCH (25.0-34.0) pg MCHC (32.0-36.0) g/dL RDW Std Deviation (36.4-46.3) fL RDW Coeff of Elo (11.5-14.5) % Plt Count (130-400) K/uL MPV (9.4-12.4) fL Immature Gran % (Auto) % Neut % (Auto) % Lymph % (Auto) % [place] % (Auto) % Eos % (Auto) % Baso % (Auto) % Neut # (Auto) (1.40-6.50) K/uL Lymph # (Auto) (1.2-3.4) K/uL [place] # (Auto) (0.11-0.59) K/uL Eos # (Auto) (0-0.50) K/uL Baso # (Auto) (0-0.2) K/uL Immature Gran # (Auto) (0.01-0.20) K/uL PT (9.0-12.0) Seconds INR (0.9-1.1) APTT (21.0-31.0) Seconds PTT Ratio Sodium Pending (136-145) mmol/L Potassium Pending (3.5-5.1) mmol/L Chloride Pending (98-107) mmol/L Carbon Dioxide Pending (21-32) mmol/L Anion Gap Pending (3-11) BUN Pending (6-23) mg/dl Creatinine Pending (0.6-1.2) mg/dl Est Cr Clr Drug Dosing Pending ml/min Est GFR ( Amer) Pending ml/min Est GFR (Non-Af Amer) Pending ml/min BUN/Creatinine Ratio Pending (10-20) Glucose Pending (70-99(Fasting)) mg/dl Osmolality Lactate (0.4-2.0) mmol/L Calcium Pending (8.6-10.3) mg/dl Phosphorus Pending Magnesium (1.7-2.4) mg/dl Total Bilirubin (0.2-1.0) mg/dl Direct Bilirubin (0-0.2) mg/dl AST (13-39) U/L ALT (7-52) U/L Alkaline Phosphatase (34-104) U/L Troponin I High Sens (0-14) pg/ml Total Protein (6.0-8.3) gm/dl Albumin (3.4-5.0) gm/dl Vitamin B1 Pending Vitamin B12 Pending Folate Pending Procalcitonin (0-0.5) ng/ml Urine Color Urine Appearance (Clear) Urine pH (4.5-7.5) Ur Specific [place] (1.000-1.030) Urine Protein (Negative) Urine Glucose (UA) (Negative) Urine Ketones (Negative) Urine Blood (Negative) Urine Nitrite (Negative) Urine Bilirubin (Negative) Urine Urobilinogen (Negative) Ur Leukocyte Esterase (Negative) Urine Osmolality (500-800) mOsm/kg Stl C. cayetanensis PCR (NotDetected) Stool Rotavirus A PCR (NotDetected) Stl Adenov F 40/41 PCR (NotDetected) Stool Astrovirus (PCR) (NotDetected) Stool Campylobacter PCR (NotDetected) Stl C. diff Tox B Gene (Neg) Stool Cryptosporidium PCR (NotDetected) Stl E.coli Shiga Tox PCR (NotDetected) Stl Enterotoxigenic E PCR (NotDetected) Stool EPEC (PCR) (NotDetected) Stool EAEC (PCR) (NotDetected) Stl E. histolytica PCR (NotDetected) Stool Giardia Lamblia PCR (NotDetected) Stool Salmonella PCR (NotDetected) Stool Sapovirus (PCR) (NotDetected) Stl P. shigelloides PCR (NotDetected) Stl Shigella/EIEC PCR (NotDetected) St Y.enterocolitica PCR (NotDetected) Stool Vibrio (PCR) (NotDetected) Stl Vibrio cholerae PCR (NotDetected) Stl Norovirus GI/GII PCR (NotDetected) Ethyl Alcohol mg/dL (<10.0) mg/dl Adenovirus (PCR) (NotDetected) B. pertussis DNA (PCR) (NotDetected) B.parapertussis DNA PCR (NotDetected) C. pneumoniae DNA (PCR) (NotDetected) Coronavirus OC43 (PCR) (NotDetected) Coronavirus HKU1 (PCR) (NotDetected) Coronavirus 229E (PCR) (NotDetected) SARS-CoV-2 (PCR) (NotDetected) Coronavirus NL63 (PCR) (NotDetected) Human Metapneumovir PCR (NotDetected) Influenza Type A (PCR) (NotDetected) Influenza Type B (PCR) (NotDetected) M. pneumoniae (PCR) (NotDetected) Parainfluenza 1 (PCR) (NotDetected) Parainfluenza 2 (PCR) (NotDetected) Parainfluenza 3 (PCR) (NotDetected) Parainfluenza 4 (PCR) (NotDetected) RSV (PCR) (NotDetected) Entero/Rhino (PCR) (NotDetected) 09/16/22 09/16/22 09/16/22 Range/Units 12:19 10:20 09:49 WBC (4.8-10.8) K/ul RBC (4.20-5.40) M/uL Hgb (12.0-16.0) g/dl Hct (37.0-47.0) % MCV (80.0-100.0) fL MCH (25.0-34.0) pg MCHC (32.0-36.0) g/dL RDW Std Deviation (36.4-46.3) fL RDW Coeff of Elo (11.5-14.5) % Plt Count (130-400) K/uL MPV (9.4-12.4) fL Immature Gran % (Auto) % Neut % (Auto) % Lymph % (Auto) % [place] % (Auto) % Eos % (Auto) % Baso % (Auto) % Neut # (Auto) (1.40-6.50) K/uL Lymph # (Auto) (1.2-3.4) K/uL [place] # (Auto) (0.11-0.59) K/uL Eos # (Auto) (0-0.50) K/uL Baso # (Auto) (0-0.2) K/uL Immature Gran # (Auto) (0.01-0.20) K/uL PT (9.0-12.0) Seconds INR (0.9-1.1) APTT (21.0-31.0) Seconds PTT Ratio Sodium (136-145) mmol/L Potassium (3.5-5.1) mmol/L Chloride (98-107) mmol/L Carbon Dioxide (21-32) mmol/L Anion Gap (3-11) BUN (6-23) mg/dl Creatinine (0.6-1.2) mg/dl Est Cr Clr Drug Dosing ml/min Est GFR ( Amer) ml/min Est GFR (Non-Af Amer) ml/min BUN/Creatinine Ratio (10-20) Glucose (70-99(Fasting)) mg/dl Osmolality Pending Lactate 1.1 (0.4-2.0) mmol/L Calcium (8.6-10.3) mg/dl Phosphorus Magnesium (1.7-2.4) mg/dl Total Bilirubin (0.2-1.0) mg/dl Direct Bilirubin (0-0.2) mg/dl AST (13-39) U/L ALT (7-52) U/L Alkaline Phosphatase (34-104) U/L Troponin I High Sens (0-14) pg/ml Total Protein (6.0-8.3) gm/dl Albumin (3.4-5.0) gm/dl Vitamin B1 Vitamin B12 Folate Procalcitonin (0-0.5) ng/ml Urine Color Urine Appearance (Clear) Urine pH (4.5-7.5) Ur Specific [place] (1.000-1.030) Urine Protein (Negative) Urine Glucose (UA) (Negative) Urine Ketones (Negative) Urine Blood (Negative) Urine Nitrite (Negative) Urine Bilirubin (Negative) Urine Urobilinogen (Negative) Ur Leukocyte Esterase (Negative) Urine Osmolality 152 L (500-800) mOsm/kg Stl C. cayetanensis PCR (NotDetected) Stool Rotavirus A PCR (NotDetected) Stl Adenov F 40/41 PCR (NotDetected) Stool Astrovirus (PCR) (NotDetected) Stool Campylobacter PCR (NotDetected) Stl C. diff Tox B Gene (Neg) Stool Cryptosporidium PCR (NotDetected) Stl E.coli Shiga Tox PCR (NotDetected) Stl Enterotoxigenic E PCR (NotDetected) Stool EPEC (PCR) (NotDetected) Stool EAEC (PCR) (NotDetected) Stl E. histolytica PCR (NotDetected) Stool Giardia Lamblia PCR (NotDetected) Stool Salmonella PCR (NotDetected) Stool Sapovirus (PCR) (NotDetected) Stl P. shigelloides PCR (NotDetected) Stl Shigella/EIEC PCR (NotDetected) St Y.enterocolitica PCR (NotDetected) Stool Vibrio (PCR) (NotDetected) Stl Vibrio cholerae PCR (NotDetected) Stl Norovirus GI/GII PCR (NotDetected) Ethyl Alcohol mg/dL (<10.0) mg/dl Adenovirus (PCR) (NotDetected) B. pertussis DNA (PCR) (NotDetected) B.parapertussis DNA PCR (NotDetected) C. pneumoniae DNA (PCR) (NotDetected) Coronavirus OC43 (PCR) (NotDetected) Coronavirus HKU1 (PCR) (NotDetected) Coronavirus 229E (PCR) (NotDetected) SARS-CoV-2 (PCR) (NotDetected) Coronavirus NL63 (PCR) (NotDetected) Human Metapneumovir PCR (NotDetected) Influenza Type A (PCR) (NotDetected) Influenza Type B (PCR) (NotDetected) M. pneumoniae (PCR) (NotDetected) Parainfluenza 1 (PCR) (NotDetected) Parainfluenza 2 (PCR) (NotDetected) Parainfluenza 3 (PCR) (NotDetected) Parainfluenza 4 (PCR) (NotDetected) RSV (PCR) (NotDetected) Entero/Rhino (PCR) (NotDetected) 09/16/22 09/16/22 09/16/22 Range/Units 09:49 09:42 09:42 WBC (4.8-10.8) K/ul RBC (4.20-5.40) M/uL Hgb (12.0-16.0) g/dl Hct (37.0-47.0) % MCV (80.0-100.0) fL MCH (25.0-34.0) pg MCHC (32.0-36.0) g/dL RDW Std Deviation (36.4-46.3) fL RDW Coeff of Elo (11.5-14.5) % Plt Count (130-400) K/uL MPV (9.4-12.4) fL Immature Gran % (Auto) % Neut % (Auto) % Lymph % (Auto) % [place] % (Auto) % Eos % (Auto) % Baso % (Auto) % Neut # (Auto) (1.40-6.50) K/uL Lymph # (Auto) (1.2-3.4) K/uL [place] # (Auto) (0.11-0.59) K/uL Eos # (Auto) (0-0.50) K/uL Baso # (Auto) (0-0.2) K/uL Immature Gran # (Auto) (0.01-0.20) K/uL PT 12.0 (9.0-12.0) Seconds INR 1.1 (0.9-1.1) APTT 35.4 H (21.0-31.0) Seconds PTT Ratio 1.3 Sodium (136-145) mmol/L Potassium (3.5-5.1) mmol/L Chloride (98-107) mmol/L Carbon Dioxide (21-32) mmol/L Anion Gap (3-11) BUN (6-23) mg/dl Creatinine (0.6-1.2) mg/dl Est Cr Clr Drug Dosing ml/min Est GFR ( Amer) ml/min Est GFR (Non-Af Amer) ml/min BUN/Creatinine Ratio (10-20) Glucose (70-99(Fasting)) mg/dl Osmolality Lactate (0.4-2.0) mmol/L Calcium (8.6-10.3) mg/dl Phosphorus Magnesium (1.7-2.4) mg/dl Total Bilirubin (0.2-1.0) mg/dl Direct Bilirubin (0-0.2) mg/dl AST (13-39) U/L ALT (7-52) U/L Alkaline Phosphatase (34-104) U/L Troponin I High Sens (0-14) pg/ml Total Protein (6.0-8.3) gm/dl Albumin (3.4-5.0) gm/dl Vitamin B1 Vitamin B12 Folate Procalcitonin (0-0.5) ng/ml Urine Color Yellow Urine Appearance Clear (Clear) Urine pH 6.5 (4.5-7.5) Ur Specific [place] 1.006 (1.000-1.030) Urine Protein Negative (Negative) Urine Glucose (UA) Negative (Negative) Urine Ketones 2+ H (Negative) Urine Blood Negative (Negative) Urine Nitrite Negative (Negative) Urine Bilirubin Negative (Negative) Urine Urobilinogen Negative (Negative) Ur Leukocyte Esterase Negative (Negative) Urine Osmolality (500-800) mOsm/kg Stl C. cayetanensis PCR (NotDetected) Stool Rotavirus A PCR (NotDetected) Stl Adenov F 40/41 PCR (NotDetected) Stool Astrovirus (PCR) (NotDetected) Stool Campylobacter PCR (NotDetected) Stl C. diff Tox B Gene (Neg) Stool Cryptosporidium PCR (NotDetected) Stl E.coli Shiga Tox PCR (NotDetected) Stl Enterotoxigenic E PCR (NotDetected) Stool EPEC (PCR) (NotDetected) Stool EAEC (PCR) (NotDetected) Stl E. histolytica PCR (NotDetected) Stool Giardia Lamblia PCR (NotDetected) Stool Salmonella PCR (NotDetected) Stool Sapovirus (PCR) (NotDetected) Stl P. shigelloides PCR (NotDetected) Stl Shigella/EIEC PCR (NotDetected) St Y.enterocolitica PCR (NotDetected) Stool Vibrio (PCR) (NotDetected) Stl Vibrio cholerae PCR (NotDetected) Stl Norovirus GI/GII PCR (NotDetected) Ethyl Alcohol mg/dL < 10.0 (<10.0) mg/dl Adenovirus (PCR) (NotDetected) B. pertussis DNA (PCR) (NotDetected) B.parapertussis DNA PCR (NotDetected) C. pneumoniae DNA (PCR) (NotDetected) Coronavirus OC43 (PCR) (NotDetected) Coronavirus HKU1 (PCR) (NotDetected) Coronavirus 229E (PCR) (NotDetected) SARS-CoV-2 (PCR) (NotDetected) Coronavirus NL63 (PCR) (NotDetected) Human Metapneumovir PCR (NotDetected) Influenza Type A (PCR) (NotDetected) Influenza Type B (PCR) (NotDetected) M. pneumoniae (PCR) (NotDetected) Parainfluenza 1 (PCR) (NotDetected) Parainfluenza 2 (PCR) (NotDetected) Parainfluenza 3 (PCR) (NotDetected) Parainfluenza 4 (PCR) (NotDetected) RSV (PCR) (NotDetected) Entero/Rhino (PCR) (NotDetected) 09/16/22 09/16/22 09/16/22 Range/Units 09:42 09:42 09:42 WBC 2.34 L (4.8-10.8) K/ul RBC 4.04 L (4.20-5.40) M/uL Hgb 13.7 (12.0-16.0) g/dl Hct 34.4 L (37.0-47.0) % MCV 85.1 (80.0-100.0) fL MCH 33.9 (25.0-34.0) pg MCHC 39.8 H (32.0-36.0) g/dL RDW Std Deviation 38.0 (36.4-46.3) fL RDW Coeff of Elo 12.3 (11.5-14.5) % Plt Count 150 (130-400) K/uL MPV 9.3 L (9.4-12.4) fL Immature Gran % (Auto) 0.4 % Neut % (Auto) 65.4 % Lymph % (Auto) 21.8 % [place] % (Auto) 11.5 % Eos % (Auto) 0.0 % Baso % (Auto) 0.9 % Neut # (Auto) 1.53 (1.40-6.50) K/uL Lymph # (Auto) 0.51 L (1.2-3.4) K/uL [place] # (Auto) 0.27 (0.11-0.59) K/uL Eos # (Auto) 0.00 (0-0.50) K/uL Baso # (Auto) 0.02 (0-0.2) K/uL Immature Gran # (Auto) 0.01 (0.01-0.20) K/uL PT (9.0-12.0) Seconds INR (0.9-1.1) APTT (21.0-31.0) Seconds PTT Ratio Sodium 118 L* (136-145) mmol/L Potassium 3.2 L (3.5-5.1) mmol/L Chloride 84 L (98-107) mmol/L Carbon Dioxide 26 (21-32) mmol/L Anion Gap 8 (3-11) BUN 3 L (6-23) mg/dl Creatinine 0.27 L (0.6-1.2) mg/dl Est Cr Clr Drug Dosing 173.3 ml/min Est GFR ( Amer) 149.3 ml/min Est GFR (Non-Af Amer) 128.8 ml/min BUN/Creatinine Ratio 11.1 (10-20) Glucose 80 (70-99(Fasting)) mg/dl Osmolality Lactate (0.4-2.0) mmol/L Calcium 7.8 L (8.6-10.3) mg/dl Phosphorus Magnesium 1.4 L (1.7-2.4) mg/dl Total Bilirubin 0.4 (0.2-1.0) mg/dl Direct Bilirubin 0.1 (0-0.2) mg/dl AST 68 H (13-39) U/L ALT 24 (7-52) U/L Alkaline Phosphatase 88 (34-104) U/L Troponin I High Sens 21.3 H (0-14) pg/ml Total Protein 5.1 L (6.0-8.3) gm/dl Albumin 3.1 L (3.4-5.0) gm/dl Vitamin B1 Vitamin B12 Folate Procalcitonin 0.07 (0-0.5) ng/ml Urine Color Urine Appearance (Clear) Urine pH (4.5-7.5) Ur Specific [place] (1.000-1.030) Urine Protein (Negative) Urine Glucose (UA) (Negative) Urine Ketones (Negative) Urine Blood (Negative) Urine Nitrite (Negative) Urine Bilirubin (Negative) Urine Urobilinogen (Negative) Ur Leukocyte Esterase (Negative) Urine Osmolality (500-800) mOsm/kg Stl C. cayetanensis PCR (NotDetected) Stool Rotavirus A PCR (NotDetected) Stl Adenov F 40/41 PCR (NotDetected) Stool Astrovirus (PCR) (NotDetected) Stool Campylobacter PCR (NotDetected) Stl C. diff Tox B Gene (Neg) Stool Cryptosporidium PCR (NotDetected) Stl E.coli Shiga Tox PCR (NotDetected) Stl Enterotoxigenic E PCR (NotDetected) Stool EPEC (PCR) (NotDetected) Stool EAEC (PCR) (NotDetected) Stl E. histolytica PCR (NotDetected) Stool Giardia Lamblia PCR (NotDetected) Stool Salmonella PCR (NotDetected) Stool Sapovirus (PCR) (NotDetected) Stl P. shigelloides PCR (NotDetected) Stl Shigella/EIEC PCR (NotDetected) St Y.enterocolitica PCR (NotDetected) Stool Vibrio (PCR) (NotDetected) Stl Vibrio cholerae PCR (NotDetected) Stl Norovirus GI/GII PCR (NotDetected) Ethyl Alcohol mg/dL (<10.0) mg/dl Adenovirus (PCR) (NotDetected) B. pertussis DNA (PCR) (NotDetected) B.parapertussis DNA PCR (NotDetected) C. pneumoniae DNA (PCR) (NotDetected) Coronavirus OC43 (PCR) (NotDetected) Coronavirus HKU1 (PCR) (NotDetected) Coronavirus 229E (PCR) (NotDetected) SARS-CoV-2 (PCR) (NotDetected) Coronavirus NL63 (PCR) (NotDetected) Human Metapneumovir PCR (NotDetected) Influenza Type A (PCR) (NotDetected) Influenza Type B (PCR) (NotDetected) M. pneumoniae (PCR) (NotDetected) Parainfluenza 1 (PCR) (NotDetected) Parainfluenza 2 (PCR) (NotDetected) Parainfluenza 3 (PCR) (NotDetected) Parainfluenza 4 (PCR) (NotDetected) RSV (PCR) (NotDetected) Entero/Rhino (PCR) (NotDetected) 09/16/22 09/16/22 09/16/22 Range/Units 09:41 09:41 09:41 WBC (4.8-10.8) K/ul RBC (4.20-5.40) M/uL Hgb (12.0-16.0) g/dl Hct (37.0-47.0) % MCV (80.0-100.0) fL MCH (25.0-34.0) pg MCHC (32.0-36.0) g/dL RDW Std Deviation (36.4-46.3) fL RDW Coeff of Elo (11.5-14.5) % Plt Count (130-400) K/uL MPV (9.4-12.4) fL Immature Gran % (Auto) % Neut % (Auto) % Lymph % (Auto) % [place] % (Auto) % Eos % (Auto) % Baso % (Auto) % Neut # (Auto) (1.40-6.50) K/uL Lymph # (Auto) (1.2-3.4) K/uL [place] # (Auto) (0.11-0.59) K/uL Eos # (Auto) (0-0.50) K/uL Baso # (Auto) (0-0.2) K/uL Immature Gran # (Auto) (0.01-0.20) K/uL PT (9.0-12.0) Seconds INR (0.9-1.1) APTT (21.0-31.0) Seconds PTT Ratio Sodium (136-145) mmol/L Potassium (3.5-5.1) mmol/L Chloride (98-107) mmol/L Carbon Dioxide (21-32) mmol/L Anion Gap (3-11) BUN (6-23) mg/dl Creatinine (0.6-1.2) mg/dl Est Cr Clr Drug Dosing ml/min Est GFR ( Amer) ml/min Est GFR (Non-Af Amer) ml/min BUN/Creatinine Ratio (10-20) Glucose (70-99(Fasting)) mg/dl Osmolality Lactate (0.4-2.0) mmol/L Calcium (8.6-10.3) mg/dl Phosphorus Magnesium (1.7-2.4) mg/dl Total Bilirubin (0.2-1.0) mg/dl Direct Bilirubin (0-0.2) mg/dl AST (13-39) U/L ALT (7-52) U/L Alkaline Phosphatase (34-104) U/L Troponin I High Sens (0-14) pg/ml Total Protein (6.0-8.3) gm/dl Albumin (3.4-5.0) gm/dl Vitamin B1 Vitamin B12 Folate Procalcitonin (0-0.5) ng/ml Urine Color Urine Appearance (Clear) Urine pH (4.5-7.5) Ur Specific [place] (1.000-1.030) Urine Protein (Negative) Urine Glucose (UA) (Negative) Urine Ketones (Negative) Urine Blood (Negative) Urine Nitrite (Negative) Urine Bilirubin (Negative) Urine Urobilinogen (Negative) Ur Leukocyte Esterase (Negative) Urine Osmolality (500-800) mOsm/kg Stl C. cayetanensis PCR Not Detected (NotDetected) Stool Rotavirus A PCR Not Detected (NotDetected) Stl Adenov F 40/41 PCR Not Detected (NotDetected) Stool Astrovirus (PCR) Not Detected (NotDetected) Stool Campylobacter PCR Not Detected (NotDetected) Stl C. diff Tox B Gene Negative Cdiff Gene (Neg) Stool Cryptosporidium PCR Not Detected (NotDetected) Stl E.coli Shiga Tox PCR Not Detected (NotDetected) Stl Enterotoxigenic E PCR Not Detected (NotDetected) Stool EPEC (PCR) Not Detected (NotDetected) Stool EAEC (PCR) Not Detected (NotDetected) Stl E. histolytica PCR Not Detected (NotDetected) Stool Giardia Lamblia PCR Not Detected (NotDetected) Stool Salmonella PCR Not Detected (NotDetected) Stool Sapovirus (PCR) Not Detected (NotDetected) Stl P. shigelloides PCR Not Detected (NotDetected) Stl Shigella/EIEC PCR Not Detected (NotDetected) St Y.enterocolitica PCR Not Detected (NotDetected) Stool Vibrio (PCR) Not Detected (NotDetected) Stl Vibrio cholerae PCR Not Detected (NotDetected) Stl Norovirus GI/GII PCR Not Detected (NotDetected) Ethyl Alcohol mg/dL (<10.0) mg/dl Adenovirus (PCR) Not Detected (NotDetected) B. pertussis DNA (PCR) Not Detected (NotDetected) B.parapertussis DNA PCR Not Detected (NotDetected) C. pneumoniae DNA (PCR) Not Detected (NotDetected) Coronavirus OC43 (PCR) Not Detected (NotDetected) Coronavirus HKU1 (PCR) Not Detected (NotDetected) Coronavirus 229E (PCR) Not Detected (NotDetected) SARS-CoV-2 (PCR) Not Detected (NotDetected) Coronavirus NL63 (PCR) Not Detected (NotDetected) Human Metapneumovir PCR DETECTED A* (NotDetected) Influenza Type A (PCR) Not Detected (NotDetected) Influenza Type B (PCR) Not Detected (NotDetected) M. pneumoniae (PCR) Not Detected (NotDetected) Parainfluenza 1 (PCR) Not Detected (NotDetected) Parainfluenza 2 (PCR) Not Detected (NotDetected) Parainfluenza 3 (PCR) Not Detected (NotDetected) Parainfluenza 4 (PCR) Not Detected (NotDetected) RSV (PCR) Not Detected (NotDetected) Entero/Rhino (PCR) Not Detected (NotDetected) Diagnostic Findings Chest X-Ray 09/16/22 09:33 XR chest 1V portable CLINICAL HISTORY: Sepsis. COMPARISON STUDY: Chest CT October 22, 2019. Chest radiograph April 07, 2022. FINDINGS: Old, healed proximal right humeral fracture is noted. There are multiple old, healed bilateral rib fractures. Bilateral clavicular and left humeral internal fixations are incidentally noted. No pneumothorax or pleural effusion. There is no consolidation to suggest pneumonia. No evidence for pulmonary edema. Cardiomediastinal silhouette is stable. IMPRESSION: No acute cardiopulmonary findings. No significant change in appearance of the chest. ACT 112: Negative or not required by law. Electronically signed by: Gigi Dia M.D. 09/16/2022 10:37 AM Abdomen/Pelvis CT 09/16/22 09:[address] WITHOUT CONTRAST CT DOSE: HISTORY: diarrhea, poss colitis TECHNIQUE: Multiaxial CT images of the abdomen and pelvis were performed without contrast. A dose lowering technique was utilized adhering to the principles of ALARA. COMPARISON STUDY: Abdomen and pelvis CT 10/23/2021. FINDINGS: There is sclerosis and moderate loss of height within the T12 vertebral body which favors a subacute to chronic fracture. Mild paravertebral fat stranding/edema at this level. This demonstrates up to 3 mm of retropulsion and mild central canal narrowing at this level. Focal central lucency at the T12 vertebral body which measures 11 mm which is likely due to the nonunited fracture. A pathologic fracture in the setting of underlying lesion or infection is considered less likely but not entirely excluded. Internal fixation of an old, healed right pelvic fracture is noted. There are old, healed bilateral pubic ring fractures identified. Old, healed sacral fracture is noted. Old transverse process fractures within the left side of the lumbar spine. Old bilateral rib fractures are noted. No definite acute fractures identified. Levoscoliosis of the lumbar spine. A few patchy airspace opacities within the lung bases with tree-in-bud nodular opacities and partial opacification of the distal bronchi. This is consistent with a pneumonia and likely due to aspiration. No pneumoperitoneum. No pneumatosis. Superficial soft tissue thickening at the sacrum. No underlying bony destruction to suggest an osteomyelitis at this time. The unenhanced liver, spleen, adrenal glands, pancreas, and kidneys unremarkable. No hydronephrosis. No retroperitoneal lymphadenopathy. Mild calcified plaque within the normal caliber abdominal aorta. Multiple gallstones are again noted. No gallbladder wall thickening. The gallbladder is decompressed. No retroperitoneal or pelvic lymphadenopathy. No pelvic free fluid. The uterus and adnexa are unremarkable. Mild left anterior bladder wall thickening. Suboptimal evaluation for bowel pathology due to the lack of intravenous and oral contrast. However, there is no definite bowel wall thickening or obstruction. Fluid-filled large and small bowel is noted. IMPRESSION: 1. Fluid-filled nondilated loops of large and small bowel seen throughout the abdomen. This favors a diarrheal illness/gastroenteritis. 2. No evidence for a bowel obstruction. 3. Cholelithiasis. No gallbladder wall thickening. 4. A few patchy airspace opacities within the lung bases with tree-in-bud nodular opacities and partial opacification of the distal bronchi. This is consistent with a pneumonia and likely due to aspiration. 5. Mild left anterior bladder wall thickening. Recommend correlation with urinalysis. 6. Multiple old, healed fractures as described above. 7. There is sclerosis and moderate loss of height within the T12 vertebral body which favors a subacute to chronic fracture. Mild paravertebral fat stranding/edema is noted at this level. Focal central lucency at the T12 vertebral body which measures 11 mm which is likely due to the nonunited fractur e. A pathologic fracture in the setting of an underlying lesion or infection is considered less likely but not entirely excluded. ACT 112: Negative or not required by law. Electronically signed by: Gerald Cee M.D. 09/16/2022 11:[address] 09/16/22 09:39 CT OF THE HEAD WITHOUT CONTRAST CLINICAL HISTORY: Confusion. COMPARISON STUDY: Head CT October 22, 2019. CT DOSE: 871.14 mGy.cm TECHNIQUE: Helical axial images of the head were obtained without IV contrast. Automated exposure control was utilized for the study. A dose lowering technique was utilized adhering to the principles of ALARA. FINDINGS: No acute intracranial hemorrhage, midline shift or mass effect is present. White matter hypodensity suggests small vessel disease. Ventricular system is unremarkable. The basal cisterns are patent. No extra-axial collections are present. There are no findings to suggest acute dural sinus thrombosis or acute territorial infarct. No significant calvarial abnormalities are present. Visualized portions of the sinuses and mastoid air cells are clear. IMPRESSION: No acute intracranial findings. ACT 112: Negative or not required by law. Electronically signed by: Gigi Dia M.D. 09/16/2022 11:10 AM Supervising Physician Co-Signing Physician Notes I personally saw and examined the patient. I verified all mario points and agree with Sarai Navarro PA-C with the following exceptions and/or additions: 61 year old female with alcohol use disorder presents to the ER as she hasn't been able to walk for the last few days. Bilateral weakness although she does feel the left side is worse than right. No change in speech, vision or hearing. Not taking any of her usual medications. Last alcohol drink on Friday - no anxiety or tremors since. Continue to smoke. Dizziness resolved with steroids given in ER. O/E A&Ox3, frail and chronically ill appearing, HS RRR, no murmurs, Chest rhonchi throughout, no wheezing or stridor, no respiratory distress, good air entry b/l, Abdo SNT, 1+ pitting edema, CN 2->12 intact except left pupil larger than right and more sluggish to light, No focal extremity weakness, foot drop or change in sensation, no pronator drift, RA appearing hands without acute joint inflammation A/P Metapneumovirus pneumonia - suspect her acute deterioration is due to this viral illness. No definitive evidence of secondary bacterial pneumonia but clearly at risk of this and will need to monitor closely for need for antibiotics. SLT assessment to assess for aspiration. Supportive care with guaifenesin, incentive spirometer and flutter valve Acute hyponatremia - suspect nutritional with improvement NSS, continue to monitor q6h Generalized weakness - suspect multifactorial with alcohol use, viral illness, hyponatremia, chronic malnourishment, B12 def. Subjective left > right weakness but not on exam, left pupil appears larger and less reactive than right. CT head negative for acute intracranial pathology. Consider brain MRI depending on clinical course as unclear if findings more chronic on admission. Unable to rule out Wernicke's encephalopathy contributing therefore will get B1 level and start high dose thiamine. Hypotension / adrenal insufficiency - suspect due to viral illness in setting of adrenal insufficiency, prudent to treat with stress dose steroids although suspect these can be rapidly weaned since she has no evidence of end organ damage even without steroids with a normal lactate (although this was taken after 1st L NSS), will repeat lactate with AM labs to ensure this is still the case. Alcohol use disorder - no current signs of alcohol withdrawal, AWSS with at risk lorazepam ordered PG Care Time/CCT Total # of Minutes Spent Total Time Spent with Patient: Total time spent is greater than 50% in coordination of care (as documented) at patient's floor/unit and/or counseling patient: Coding Level of Care Code 42310 INT INP/OBS CARE 3/75MIN Diagnoses Weakness R53.1 Leg edema R60.0 Infection due to human metapneumovirus (hMPV) B34.8 Adrenal insufficiency E27.40 COPD (chronic obstructive pulmonary disease) J44.9 Hyponatremia E87.1 Diarrhea R19.7 GERD (gastroesophageal reflux disease) K21.9 Frequent falls R29.6 Alcohol use Z78.9 Hypoxia R09.02
[2022-09-16 12:47] LABS: Adenovirus F 40/41 PCR Not Detected (NotDetected); Astrovirus PCR Not Detected (NotDetected); Campylobacter PCR Not Detected (NotDetected); Cryptosporidium PCR Not Detected (NotDetected); Cyclospora cayetanensis PCR Not Detected (NotDetected); Entamoeba histolytica PCR Not Detected (NotDetected); Enteroaggregative E.coli(EAEC) Not Detected (NotDetected); Enteropathogenic E.coli (EPEC) Not Detected (NotDetected); Enterotoxigenic E.coli (ETEC) Not Detected (NotDetected); Giardia lamblia PCR Not Detected (NotDetected); Norovirus GI/GII PCR Not Detected (NotDetected); Plesiomonas shigelloides PCR Not Detected (NotDetected); Rotavirus A PCR Not Detected (NotDetected); Salmonella PCR Not Detected (NotDetected); Sapovirus PCR Not Detected (NotDetected); Shiga-like Toxin E.coli (STEC) Not Detected (NotDetected); Shigella/Enteroinvasive E.coli Not Detected (NotDetected); Vibrio cholerae PCR Not Detected (NotDetected); Vibrio species PCR Not Detected (NotDetected); Yersinia enterocolitica PCR Not Detected (NotDetected)
[2022-09-16 13:07] LABS: BUN Creatinine Ratio 12.1 (10-20); Calcium 7.6 mg/dl (8.6-10.3); Creatinine Clr Calc Pharmacy 141.8 ml/min; Est GFR (African American) 139.8 ml/min; Est GFR (Non-African American) 120.6 ml/min; Phosphorus 2.8 mg/dl (2.5-4.9); Potassium 3.2 mmol/L (3.5-5.1)
--- NOTE | 2022-09-16 13:15 | Electrocardiogram Report ---
Test Reason : Blood Pressure : / mmHG Vent. Rate : 089 BPM Atrial Rate : 089 BPM P-R Int : 160 ms QRS Dur : 090 ms QT Int : 516 ms P-R-T Axes : 081 -54 061 degrees QTc Int : 627 ms Sinus rhythm with Premature atrial complexes in a pattern of bigeminy Left axis deviation Low voltage QRS Cannot rule out Anteroseptal infarct (cited on or before 23-OCT-2019) Abnormal ECG When compared with ECG of 07-APR-2022 01:43, Premature atrial complexes are now Present Nonspecific T wave abnormality now evident in Lateral leads QT has lengthened Confirmed by Dale Zhang ([id number]) on 09/16/2022 1:15:25 PM Referred By: REFERRED SELF Confirmed By:Dale Zhang
[2022-09-16] MEDS ORDERED: ONDANSETRON INJ 2 MG/ML 2 ML VIAL IV PRN (15:40)
[2022-09-16] MEDS ORDERED: LORazepam 2 MG/1 ML VIAL IV PRN (15:40)
[2022-09-16] MEDS ORDERED: oxyCODONE HCL IR 5 MG TAB (IMMEDIATE RELEASE) PO SCH (15:40)
[2022-09-16] MEDS ORDERED: ACETAMINOPHEN 325 MG TAB PO PRN (15:40)
[2022-09-16] MEDS ORDERED: HYDROCORTISONE SOD SUCCINATE 100 MG/2 ML VIAL IV SCH (15:40)
[2022-09-16] MEDS ORDERED: oxyCODONE HCL IR 5 MG TAB (IMMEDIATE RELEASE) PO PRN (15:53)
[2022-09-16] MEDS: PANTOprazole 40 MG TAB PO SCH (16:24)
[2022-09-16] MEDS: ALBUT/IPRATROP 3MG/0.5MG NEB 3 ML VIAL NEB SCH ×3 (16:25→23:35)
[2022-09-16] MEDS: THIAMINE HCL 500 MG in SODIUM CHLORIDE 0.9% 50 ML IV SCH (16:38)
[2022-09-16] MEDS: HYDROCORTISONE SOD 50 MG in SYRINGE 0 ML IV SCH (17:03)
[2022-09-16 18:34] LABS: BUN Creatinine Ratio 13.3 (10-20); Calcium 7.7 mg/dl (8.6-10.3); Est GFR (African American) 144.2 ml/min; Est GFR (Non-African American) 124.5 ml/min; Magnesium 2.3 mg/dl (1.7-2.4); Potassium 3.7 mmol/L (3.5-5.1)
[2022-09-16] MEDS ORDERED: Albuterol HFA 8 GM Inhaler (Combivent Respimat P&T Subs) INH SCH (19:00)
[2022-09-16] MEDS ORDERED: Ipratropium HFA Inhaler (Combivent Respimat P&T Subs) INH SCH (19:00)
[2022-09-16] MEDS ORDERED: IPRATROPIUM BROMIDE/ALBUTEROL respimat INH INH SCH (21:00)
--- NOTE | 2022-09-16 22:00 | Ultrasound Report ---
Exam(s): US VENOUS BILATERAL LOWER EXTREMITIES EXAM: US Duplex Bilateral Lower Extremities Veins CLINICAL HISTORY: Reason for exam: Le swelling, r/o DVT. TECHNIQUE: Real-time duplex ultrasound scan of the bilateral lower extremity veins integrating B-mode two-dimensional vascular structure, Doppler spectral analysis, color flow Doppler imaging and compression. COMPARISON: None. FINDINGS: Right deep veins: Unremarkable. No DVT in the right common femoral, femoral, proximal deep femoral or popliteal veins. The veins demonstrate normal color flow, are normally compressible, with normal phasic flow and/or augmentation response. Right superficial veins: Unremarkable. No thrombus in the visualized right great saphenous vein. Left deep veins: Unremarkable. No DVT in the left common femoral, femoral, proximal deep femoral or popliteal veins. The veins demonstrate normal color flow, are normally compressible, with normal phasic flow and/or augmentation response. Left superficial veins: Unremarkable. No thrombus in the visualized left great saphenous vein. Soft tissues: No acute findings. No popliteal cyst. Other findings: Suboptimally visualized calf veins with visualized portion revealing normal flow. IMPRESSION: No ultrasonographic evidence of deep venous thrombosis involving the bilateral lower extremities. Electronically signed by: Kelsi Theodore MD 09/16/22 21:59 PM
[2022-09-16] MEDS: guaiFENesin 600 MG TABCR PO SCH (22:19)
[2022-09-16] MEDS: CYANOCOBALAMIN 1000 MCG/ML VIAL IM SCH (22:20)
[2022-09-16] MEDS: PANCREAZE (LIPASE 10,500U) CAP PO SCH (22:22)
[2022-09-16] MEDS ORDERED: ALBUT/IPRATROP 3MG/0.5MG NEB 3 ML VIAL NEB PRN (23:50)
[2022-09-17] MEDS: THIAMINE HCL 500 MG in SODIUM CHLORIDE 0.9% 50 ML IV SCH ×3 (00:37→16:36)
[2022-09-17] MEDS: HYDROCORTISONE SOD 50 MG in SYRINGE 0 ML IV SCH ×3 (00:38→16:36)
[2022-09-17 01:17] LABS: BUN Creatinine Ratio 9.8 (10-20); Calcium 7.6 mg/dl (8.6-10.3); Creatinine Clr Calc Pharmacy 76.7 ml/min; Est GFR (African American) 114.2 ml/min; Est GFR (Non-African American) 98.5 ml/min; Potassium 3.4 mmol/L (3.5-5.1)
[2022-09-17] MEDS ORDERED: NSS + 20MEQ KCL 20 MEQ/1,000 ML BAG IV SCH (03:00)
[2022-09-17] MEDS ORDERED: PERFLUTREN LIPID MICROSPHERE (DEFINITY) IV ONE (07:41)
[2022-09-17 07:44] LABS: Hematocrit (blood only) 31.7 % (37.0-47.0); Hemoglobin 11.8 g/dl (12.0-16.0); Mean Corpuscular Hemoglobin 33.1 pg (25.0-34.0); Mean Corpuscular Hgb Conc 37.2 g/dL (32.0-36.0); Mean Corpuscular Volume 88.8 fL (80.0-100.0); Platelet Count 150 K/uL (130-400); RDW Coefficient of Variation 12.4 % (11.5-14.5); RDW Standard Deviation 40.6 fL (36.4-46.3); Red Blood Count 3.57 M/uL (4.20-5.40); White Blood Count 2.03 K/ul (4.8-10.8)
[2022-09-17 07:56] LABS: Albumin Globulin Ratio 1.5 (0.9-2); Albumin Level 2.9 gm/dl (3.4-5.0); BUN Creatinine Ratio 12.8 (10-20); Bilirubin,Total 0.3 mg/dl (0.2-1.0); Calcium 7.7 mg/dl (8.6-10.3); Est GFR (African American) 132.3 ml/min; Est GFR (Non-African American) 114.2 ml/min; Potassium 3.7 mmol/L (3.5-5.1); Total Protein 4.9 gm/dl (6.0-8.3)
[2022-09-17] MEDS: FOLIC ACID 1 MG TAB PO SCH (08:19)
[2022-09-17] MEDS: PANCREAZE (LIPASE 10,500U) CAP PO SCH ×3 (08:19→17:17)
[2022-09-17] MEDS: guaiFENesin 600 MG TABCR PO SCH ×2 (08:19→20:41)
[2022-09-17] MEDS: NYSTATIN OINT 15 GM TUBE EXT SCH ×2 (08:20→22:04)
[2022-09-17] MEDS: PANTOprazole 40 MG TAB PO SCH (08:20)
[2022-09-17] MEDS: FLUTICASONE PROPIONATE NA SPR 16 GM BTL NAE SCH (08:21)
[2022-09-17] MEDS: ENOXAPARIN INJ 30 MG/0.3 ML SYR SQ SCH (08:22)
[2022-09-17] MEDS: CYANOCOBALAMIN 1000 MCG/ML VIAL IM SCH (08:22)
[2022-09-17] MEDS ORDERED: NYSTATIN CR 15 GM TUBE EXT SCH (09:00)
--- NOTE | 2022-09-17 09:09 | Hospitalist Progress Note ---
Date of Service September 17, 2022 Assessment & Plan (1) Adrenal insufficiency: Plan: h/o this per records. Per records she takes hydrocortisone 20 mg every morning and 10 mg nightly. Cont with stress dose hydrocortisone for now until she is totally out of crisis. Cont managing infectious insults as per plan below. (2) Acute hyponatremia: Plan: Likely related to adrenal crisis as well as poor PO intake/tea & toast diet in setting of severe alcohol abuse. Sodium is rising appropriately with hydrocortisone replacement. Cont with this now. BMP in am. (3) Weakness: Plan: Multifactorial likely secondary to possible adrenal crisis in setting of infection. Cont with hydrocortisone use and supportive care. PT/OT assessments when able (4) Protein calorie malnutrition: Plan: Longstanding protein calorie malnutrition that is multifactorial including poor PO intake in setting of poor PO intake and heavy alcohol use. Consult rotary shear cutter. (5) Diarrhea: Plan: CT abdomen pelvis suggest gastroenteritis. Cont to monitor electrolytes and replace as needed. (6) Gastroenteritis: Plan: cont supportive care. (7) Aspiration pneumonia: Plan: known substance abuse history with poor health generally puts her at risk for aspiration. A few patchy airspace opacities in the lung bases suggestive of possible pneumonia secondary to aspiration. Start Rocephin/Flagyl now. Preliminary blood cultures are negative. Speech to eval and treat. (8) Infection due to human metapneumovirus (hMPV): Plan: supportive care at this time. (9) Alcohol use: Plan: This likely contributes to poor nutrition and low sodium. Monitor closely for withdrawal. (10) Smoking: Plan: h/o this. Nicoderm patch as needed. (11) Osteoporosis: (12) Rheumatoid arthritis: Plan: Limited records available. Patient is unaware of what medications she is using. Per previous notes she is not on DMARDs (13) Frequent falls: Plan: 2/2 poor overall health and recent hip fracture. She was treated for a right displaced femoral fracture status post intramedullary nail in March 2022. She developed acute on chronic anemia secondary to blood loss. She was transition to [facility] for rehab. She has multiple old healed fractures in the bilateral ribs. There is loss of height within the T12 vertebral body which favors a subacute to chronic fracture. She is not reporting any acute pain. There is a focal central lucency at the T12 vertebral body which measures 11 mm likely due to the nonunited fracture however a pathologic fracture is considered less likely but not entirely excluded. As she is not reporting any back pain this should be followed up as outpatient. PT/OT to assess. Tahira Full Code Dispo-uncertain at this time. Will likely require SNF or rehab. Will await therapy recommendations. Sonali Singh DO [facility]ist Admission and Anticipated Discharge Date Admission Date: September 16, 2022 Subjective 61 yo F with significant weakness admitted with hyponatremia. today she reports feeling better but is still weak. she reports some diarrhea. Today she denies shortness of breath although she had some initially and is on 2LPM oxygen Her home meds were not reconciled on admission and she has no idea what she takes she was unable to verify any history today or that she had adrenal insufficiency historically med reconciliation was performed using the latest [facility] dc summary as there are minimal records for her in the [facility] as she is not yet a well established patient there. Physical Exam Physical Exam: CONSTITUTIONAL: thin, appears malnourished, NAD EYES: normal conjunctivae, no scleral icterus ENT: external ear and nose normal, poor dentition NECK: trachea midline RESPIRATORY: clear to auscultation bilaterally, no crackles, rales or wheezes, normal respiratory effort CARDIOVASCULAR: regular rate and rhythm, S1 and 2 heard without murmurs, g allops or rubs, no JVD, no peripheral edema CHEST: inspection of chest was normal GASTROINTESTINAL: soft, nontender, no guarding MUSCULOSKELETAL: generalized weakness, cannot sit up in bed independently, head is normocephalic and atraumatic SKIN: warm and dry NEUROLOGIC: CN 2-12 grossly intact, no sensory deficit, normal cognition, normal speech, no tremor PSYCHIATRIC: alert cooperative and answering questions appropriately, able to follow instructions but mostly vocalizing to be left alone. Results & Data Results & Data Vital Signs (Past 12 Hours) Vital Signs Temp Pulse Pulse Resp BP Pulse Ox O2 Del Method 09/17/22 07:32 36.4 C L 63 20 97/61 L 97 Nasal Cannula 09/17/22 03:20 36.5 C 63 20 104/66 99 Nasal Cannula 09/16/22 21:57 73 09/17/22 01:20 69 09/17/22 01:47 Nasal Cannula 09/16/22 23:51 36.4 C L 69 16 92/56 L 95 Nasal Cannula 09/16/22 23:35 69 18 95 Nasal Cannula O2 Flow Rate 09/17/22 07:32 2 09/17/22 03:20 2 09/16/22 21:57 09/17/22 01:20 09/17/22 01:47 2 09/16/22 23:51 2 09/16/22 23:35 2 Laboratory Results Short CBC 09/16/22 09/17/22 Range/Units 09:42 07:17 WBC 2.34 L 2.03 L (4.8-10.8) K/ul Hgb 13.7 11.8 L (12.0-16.0) g/dl Hct 34.4 L 31.7 L (37.0-47.0) % Plt Count 150 150 (130-400) K/uL BMP 09/16/22 09/16/22 09/16/22 09:42 12:19 17:52 Sodium 118 L* 121 L 122 L Potassium 3.2 L 3.2 L 3.7 Chloride 84 L 88 L 94 L Carbon Dioxide 26 25 24 BUN 3 L 4 L 4 L Creatinine 0.27 L 0.33 L 0.30 L Glucose 80 108 H 117 H Calcium 7.8 L 7.6 L 7.7 L 09/17/22 09/17/22 00:30 07:17 Sodium 122 L 124 L Potassium 3.4 L 3.7 Chloride 94 L 94 L Carbon Dioxide 24 25 BUN 6 5 L Creatinine 0.61 D 0.39 L Glucose 246 H 178 H Calcium 7.6 L 7.7 L Cardiac Enzymes 09/17/22 Range/Units 00:30 Total Creatine Kinase 66 (26-192) U/L Liver Function 09/16/22 09/17/22 Range/Units 09:42 07:17 Total Bilirubin 0.4 0.3 (0.2-1.0) mg/dl Direct Bilirubin 0.1 (0-0.2) mg/dl AST 68 H 43 H (13-39) U/L ALT 24 21 (7-52) U/L Alkaline Phosphatase 88 73 (34-104) U/L Albumin 3.1 L 2.9 L (3.4-5.0) gm/dl Urine 09/16/22 Range/Units 09:49 Urine Color Yellow Urine Appearance Clear (Clear) Urine pH 6.5 (4.5-7.5) Ur Specific [place] 1.006 (1.000-1.030) Urine Protein Negative (Negative) Urine Glucose (UA) Negative (Negative) Diagnostic Findings Venous Doppler Study 09/16/22 12:48 Exam(s): US VENOUS BILATERAL LOWER EXTREMITIES EXAM: US Duplex Bilateral Lower Extremities Veins CLINICAL HISTORY: Reason for exam: Le swelling, r/o DVT. TECHNIQUE: Real-time duplex ultrasound scan of the bilateral lower extremity veins integrating B-mode two-dimensional vascular structure, Doppler spectral analysis, color flow Doppler imaging and compression. COMPARISON: None. FINDINGS: Right deep veins: Unremarkable. No DVT in the right common femoral, femoral, proximal deep femoral or popliteal veins. The veins demonstrate normal color flow, are normally compressible, with normal phasic flow and/or augmentation response. Right superficial veins: Unremarkable. No thrombus in the visualized right great saphenous vein. Left deep veins: Unremarkable. No DVT in the left common femoral, femoral, proximal deep femoral or popliteal veins. The veins demonstrate normal color flow, are normally compressible, with normal phasic flow and/or augmentation response. Left superficial veins: Unremarkable. No thrombus in the visualized left great saphenous vein. Soft tissues: No acute findings. No popliteal cyst. Other findings: Suboptimally visualized calf veins with visualized portion revealing normal flow. IMPRESSION: No ultrasonographic evidence of deep venous thrombosis involving the bilateral lower extremities. Electronically signed by: Kelsi Theodore MD 09/16/22 21:59 PM Medications Administered Current Inpatient Medications Acetaminophen (Acetaminophen 325 Mg Tab) 650 mg PO Q4H PRN PRN Reason: Pain or Fever Stop: 10/16/22 15:39 Last Admin: 09/16/22 22:25 Dose: 650 mg Albuterol (Albut/Ipratrop 3mg/0.5mg Neb 3 Ml Vial) 3 ml NEB QID PRN; Protocol PRN Reason: wheezing or shortness of breat Stop: 10/17/22 08:59 Lipase/Protease/Amylase (Pancreaze (Lipase 10,500u) Cap) 1 cap PO AC YOUNG Stop: 10/16/22 16:29 Last Admin: 09/17/22 08:19 Dose: 1 cap Cyanocobalamin (Cyanocobalamin 1000 Mcg/Ml Vial) 1,000 mcg IM QAM YOUNG Stop: 09/20/22 09:01 Last Admin: 09/17/22 08:22 Dose: 1,000 mcg Enoxaparin Sodium (Enoxaparin Inj 30 Mg/0.3 Ml Syr) 30 mg SQ QAM [facility] Stop: 10/17/22 08:59 Last Admin: 09/17/22 08:22 Dose: 30 mg Fluticasone Propionate (Fluticasone Propionate Na Spr 16 Gm Btl) 2 sprays MANOLO DAILY YOUNG Stop: 10/17/22 08:59 Last Admin: 09/17/22 08:21 Dose: 2 sprays Folic Acid (Folic Acid 1 Mg Tab) 1 mg PO DAILY [facility] Stop: 10/17/22 08:59 Last Admin: 09/17/22 08:19 Dose: 1 mg Guaifenesin (Guaifenesin 600 Mg Tabcr) 1,200 mg PO Q12 [facility] Stop: 10/16/22 20:59 Last Admin: 09/17/22 08:19 Dose: 1,200 mg Thiamine HCl 500 mg/ Sodium (Chloride) 55 mls @ 210 mls/hr IV Q8H [facility] Stop: 10/16/22 15:59 Last Infusion: 09/17/22 00:58 Dose: Infused Hydrocortisone Sodium (Succinate 50 mg/ Syringe) 1 mls @ 4 mls/min IV Q8H [facility] Stop: 10/16/22 16:59 Last Admin: 09/17/22 08:21 Dose: 4 mls/min Potassium Chloride/Sodium Chloride (Normal Saline W/20 Meq Kcl) 20 meq in 1,000 mls @ 80 mls/hr IV .[id number] [facility]; Protocol Stop: 09/17/22 15:29 Last Admin: 09/17/22 03:48 Dose: 80 mls/hr Lorazepam (Lorazepam 2 Mg/1 Ml Vial) 1 mg IV ONE PRN; Protocol PRN Reason: EtoH Withdrawal AWSS 6,7,8,9,10 Nystatin (Nystatin Oint 15 Gm Tube) 1 appln EXT BID [facility] Stop: 10/17/22 08:59 Last Admin: 09/17/22 08:20 Dose: 1 appln Ondansetron HCl (Ondansetron Inj 2 Mg/Ml 2 Ml Vial) 4 mg IV Q6H PRN PRN Reason: Nausea Stop: 10/16/22 15:39 Oxycodone HCl (Oxycodone Hcl Ir 5 Mg Tab (Immediate Release)) 5 - 10 mg PO Q4H PRN PRN Reason: Pain Stop: 09/30/22 15:52 Pantoprazole Sodium (Pantoprazole 40 Mg Tab) 40 mg PO QAM [facility] Stop: 10/16/22 16:14 Last Admin: 09/17/22 08:20 Dose: 40 mg (5) Diarrhea Diarrhea type: unspecified type Qualified Code(s): R19.7 - Diarrhea, unspecified
--- NOTE | 2022-09-17 10:20 | XCELERA ---
[id number] [id number]
[2022-09-17 21:21] LABS: Calcium 7.9 mg/dl (8.6-10.3); Creatinine Clr Calc Pharmacy 94.4 ml/min; Est GFR (African American) 121.9 ml/min; Est GFR (Non-African American) 105.2 ml/min; Potassium 4.5 mmol/L (3.5-5.1)
[2022-09-17] MEDS: metroNIDAZOLE 500 MG/100 ML BAG IV SCH (22:04)
[2022-09-17] MEDS: cefTRIAXone SODIUM 1,000 MG in DEXTROSE 5% AD-VAN 50 ML IV SCH (22:04)
[2022-09-18] MEDS: HYDROCORTISONE SOD 50 MG in SYRINGE 0 ML IV SCH ×2 (02:30→08:00)
[2022-09-18] MEDS: metroNIDAZOLE 500 MG/100 ML BAG IV SCH ×3 (04:47→21:02)
[2022-09-18 07:40] LABS: Hematocrit (blood only) 30.6 % (37.0-47.0); Hemoglobin 11.1 g/dl (12.0-16.0); Mean Corpuscular Hemoglobin 33.2 pg (25.0-34.0); Mean Corpuscular Hgb Conc 36.3 g/dL (32.0-36.0); Mean Corpuscular Volume 91.6 fL (80.0-100.0); Mean Platelet Volume 9.1 fL (9.4-12.4); Platelet Count 159 K/uL (130-400); RDW Standard Deviation 44.1 fL (36.4-46.3); Red Blood Count 3.34 M/uL (4.20-5.40); White Blood Count 3.79 K/ul (4.8-10.8)
[2022-09-18] MEDS: PANTOprazole 40 MG TAB PO SCH (07:57)
[2022-09-18] MEDS: guaiFENesin 600 MG TABCR PO SCH ×2 (07:57→21:02)
[2022-09-18] MEDS: FOLIC ACID 1 MG TAB PO SCH (07:57)
[2022-09-18] MEDS: FLUTICASONE PROPIONATE NA SPR 16 GM BTL NAE SCH (07:58)
[2022-09-18] MEDS: FLUTICASONE FUROATE 100MCG 14 PUFFS/INHALER INH SCH (07:58)
[2022-09-18] MEDS: PANCREAZE (LIPASE 10,500U) CAP PO SCH ×4 (07:58→17:33)
[2022-09-18] MEDS: ENOXAPARIN INJ 30 MG/0.3 ML SYR SQ SCH (07:58)
[2022-09-18] MEDS: NYSTATIN OINT 15 GM TUBE EXT SCH ×2 (07:59→21:02)
[2022-09-18 09:03] LABS: BUN Creatinine Ratio 11.1 (10-20); Calcium 8.1 mg/dl (8.6-10.3); Creatinine Clr Calc Pharmacy 134.8 ml/min; Est GFR (African American) 135.8 ml/min; Est GFR (Non-African American) 117.2 ml/min; Magnesium 1.8 mg/dl (1.7-2.4); Phosphorus 1.9 mg/dl (2.5-4.9); Potassium 4.3 mmol/L (3.5-5.1)
--- NOTE | 2022-09-18 16:37 | Hospitalist Progress Note ---
Date of Service September 18, 2022 Assessment & Plan (1) Adrenal insufficiency: Plan: h/o this per records. Per records she takes hydrocortisone 20 mg every morning and 10 mg nightly. Patient received extra stress dose steroid earlier in the hospitalization. We will change back to hydrocortisone 20 mg a.m. and 10 mg in afternoon. (2) Acute hyponatremia: Plan: Likely related to poor oral intake, adrenal insufficiency Sodium on admission 118; improving appropriately. Obtain BMP daily (3) Weakness: Plan: Multifactorial likely secondary to possible adrenal crisis in setting of infection. Cont with hydrocortisone use and supportive care. PT OT recommended rehab. (4) Protein calorie malnutrition: Plan: Longstanding protein calorie malnutrition that is multifactorial including poor PO intake in setting of poor PO intake and heavy alcohol use. 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 (5) Diarrhea: (6) Gastroenteritis: Plan: CT abdomen pelvis suggest gastroenteritis. Cont to monitor electrolytes and replace as needed. cont supportive care. (7) Aspiration pneumonia: Plan: known substance abuse history with poor health generally puts her at risk for aspiration. A few patchy airspace opacities in the lung bases suggestive of possible pneumonia secondary to aspiration. Start Rocephin/Flagyl now. Preliminary blood cultures are negative. Speech to eval and treat. (8) Infection due to human metapneumovirus (hMPV): Plan: supportive care at this time. (9) Alcohol use: Plan: This likely contributes to poor nutrition and low sodium. Monitor closely for withdrawal. (10) Smoking: Plan: h/o this. Nicoderm patch as needed. (11) Osteoporosis: (12) Rheumatoid arthritis: Plan: Limited records available. Patient is unaware of what medications she is using. Per previous notes she is not on DMARDs (13) Frequent falls: Plan: 2/2 poor overall health and recent hip fracture. She was treated for a right displaced femoral fracture status post intramedullary nail in March 2022. She developed acute on chronic anemia secondary to blood loss. She was transition to [facility] for rehab. She has multiple old healed fractures in the bilateral ribs. There is loss of height within the T12 vertebral body which favors a subacute to chronic fracture. She is not reporting any acute pain. There is a focal central lucency at the T12 vertebral body which measures 11 mm likely due to the nonunited fracture however a pathologic fracture is considered less likely but not entirely excluded. As she is not reporting any back pain this should be followed up as outpatient. Tahira Full Code Dispo-PT OT eval done; recommends SNF. Case management on board. Time spent evaluating patient, direct bedside care, chart review, placing orders, interpretation of diagnostic studies, discussion with consultants, patient, and family members, as well as other required patient management activities is 60 minutes. Please note the above document was generated using voice recognition software. It may contain grammatical, syntax or spelling errors. Any formal questions or concerns about the content, text or information contained within the body of this dictation should be directly addressed to the provider for clarification Admission and Anticipated Discharge Date Admission Date: September 16, 2022 Subjective Patient seen and examined at bedside. She is comfortably lying on the bed; not in distress. Review of Systems Review of Systems: All systems reviewed & are unremarkable except as noted in Subjective Physical Exam Physical Exam: CONSTITUTIONAL: thin, appears malnourished, NAD EYES: normal conjunctivae, no scleral icterus ENT: external ear and nose normal, poor dentition NECK: trachea midline RESPIRATORY: clear to auscultation bilaterally, no crackles, rales or wheezes, normal respiratory effort CARDIOVASCULAR: regular rate and rhythm, S1 and 2 heard without murmurs, gallops or rubs, no JVD, no peripheral edema CHEST: inspection of chest was normal GASTROINTESTINAL: soft, nontender, no guarding MUSCULOSKELETAL: generalized weakness, cannot sit up in bed independently, head is normocephalic and atraumatic SKIN: warm and dry NEUROLOGIC: CN 2-12 grossly intact, no sensory deficit, normal cognition, normal speech, no tremor PSYCHIATRIC: alert cooperative and answering questions appropriately, able to follow instructions but mostly vocalizing to be left alone. Results & Data Results & Data Vital Signs (Past 12 Hours) Vital Signs Temp Pulse Resp BP Pulse Ox Pulse Ox O2 Del Method 09/18/22 15:00 97 09/18/22 15:19 36.9 C 71 18 131/80 95 Room Air 09/18/22 14:22 Room Air 09/18/22 11:31 36.4 C L 71 18 124/74 93 Room Air 09/18/22 07:43 36.4 C L 73 18 127/82 94 Room Air O2 Del Method O2 Flow Rate 09/18/22 15:00 Nasal Cannula 2 09/18/22 15:19 09/18/22 14:22 09/18/22 11:31 09/18/22 07:43 Laboratory Results Laboratory Results WBC 3.79 K/ul (4.8-10.8) L 09/18/22 06:50 RBC 3.34 M/uL (4.20-5.40) L 09/18/22 06:50 Hgb 11.1 g/dl (12.0-16.0) L 09/18/22 06:50 Hct 30.6 % (37.0-47.0) L 09/18/22 06:50 MCV 91.6 fL (80.0-100.0) 09/18/22 06:50 MCH 33.2 pg (25.0-34.0) 09/18/22 06:50 MCHC 36.3 g/dL (32.0-36.0) H 09/18/22 06:50 RDW Std Deviation 44.1 fL (36.4-46.3) 09/18/22 06:50 RDW Coeff of Elo 13.0 % (11.5-14.5) 09/18/22 06:50 Plt Count 159 K/uL (130-400) 09/18/22 06:50 MPV 9.1 fL (9.4-12.4) L 09/18/22 06:50 Immature Gran % (Auto) 0.4 % 09/16/22 09:42 Neut % (Auto) 65.4 % 09/16/22 09:42 Lymph % (Auto) 21.8 % 09/16/22 09:42 [place] % (Auto) 11.5 % 09/16/22 09:42 Eos % (Auto) 0.0 % 09/16/22 09:42 Baso % (Auto) 0.9 % 09/16/22 09:42 Neut # (Auto) 1.53 K/uL (1.40-6.50) 09/16/22 09:42 Lymph # (Auto) 0.51 K/uL (1.2-3.4) L 09/16/22 09:42 [place] # (Auto) 0.27 K/uL (0.11-0.59) 09/16/22 09:42 Eos # (Auto) 0.00 K/uL (0-0.50) 09/16/22 09:42 Baso # (Auto) 0.02 K/uL (0-0.2) 09/16/22 09:42 Immature Gran # (Auto) 0.01 K/uL (0.01-0.20) 09/16/22 09:42 PT 12.0 Seconds (9.0-12.0) 09/16/22 09:42 INR 1.1 (0.9-1.1) 09/16/22 09:42 APTT 35.4 Seconds (21.0-31.0) H 09/16/22 09:42 PTT Ratio 1.3 09/16/22 09:42 Sodium 127 mmol/L (136-145) L 09/18/22 06:50 Potassium 4.3 mmol/L (3.5-5.1) 09/18/22 06:50 Chloride 98 mmol/L (98-107) 09/18/22 06:50 Carbon Dioxide 24 mmol/L (21-32) 09/18/22 06:50 Anion Gap 5 (3-11) 09/18/22 06:50 BUN 4 mg/dl (6-23) L 09/18/22 06:50 Creatinine 0.36 mg/dl (0.6-1.2) L 09/18/22 06:50 Est Cr Clr Drug Dosing 134.8 ml/min 09/18/22 06:50 Est GFR ( Amer) 135.8 ml/min 09/18/22 06:50 Est GFR (Non-Af Amer) 117.2 ml/min 09/18/22 06:50 BUN/Creatinine Ratio 11.1 (10-20) 09/18/22 06:50 Glucose 152 mg/dl (70-99(Fasting)) H 09/18/22 06:50 Osmolality 249 mOsm/kg (280-300) L 09/16/22 12:19 Lactate 1.1 mmol/L (0.4-2.0) 09/16/22 10:20 Calcium 8.1 mg/dl (8.6-10.3) L 09/18/22 06:50 Phosphorus 1.9 mg/dl (2.5-4.9) L 09/18/22 06:50 Magnesium 1.8 mg/dl (1.7-2.4) 09/18/22 06:50 Total Bilirubin 0.3 mg/dl (0.2-1.0) 09/17/22 07:17 Direct Bilirubin 0.1 mg/dl (0-0.2) 09/16/22 09:42 AST 43 U/L (13-39) H 09/17/22 07:17 ALT 21 U/L (7-52) 09/17/22 07:17 Alkaline Phosphatase 73 U/L (34-104) 09/17/22 07:17 Ammonia 34.0 umol/L (18-72) 09/17/22 07:17 Total Creatine Kinase 22 U/L (26-192) L 09/18/22 06:50 Troponin I High Sens 16.9 pg/ml (0-14) H D 09/16/22 15:47 Total Protein 4.9 gm/dl (6.0-8.3) L 09/17/22 07:17 Albumin 2.9 gm/dl (3.4-5.0) L 09/17/22 07:17 Globulin 2.0 gm/dl (2.5-4.0) L 09/17/22 07:17 Albumin/Globulin Ratio 1.5 (0.9-2) 09/17/22 07:17 Vitamin B12 129 pg/ml (180-914) L 09/16/22 12:29 Folate 20.08 ng/ml (>5.38) 09/16/22 12:29 Procalcitonin 0.07 ng/ml (0-0.5) 09/16/22 09:42 TSH 0.913 uIu/ml (0.300-4.500) 09/17/22 07:17 Urine Color Yellow 09/16/22 09:49 Urine Appearance Clear (Clear) 09/16/22 09:49 Urine pH 6.5 (4.5-7.5) 09/16/22 09:49 Ur Specific [place] 1.006 (1.000-1.030) 09/16/22 09:49 Urine Protein Negative (Negative) 09/16/22 09:49 Urine Glucose (UA) Negative (Negative) 09/16/22 09:49 Urine Ketones 2+ (Negative) H 09/16/22 09:49 Urine Blood Negative (Negative) 09/16/22 09:49 Urine Nitrite Negative (Negative) 09/16/22 09:49 Urine Bilirubin Negative (Negative) 09/16/22 09:49 Urine Urobilinogen Negative (Negative) 09/16/22 09:49 Ur Leukocyte Esterase Negative (Negative) 09/16/22 09:49 Urine Osmolality 152 mOsm/kg (500-800) L 09/16/22 09:49 Ur Random Sodium < 10 mmol/L 09/16/22 12:10 Stl C. cayetanensis PCR Not Detected (NotDetected) 09/16/22 09:41 Stool Rotavirus A PCR Not Detected (NotDetected) 09/16/22 09:41 Stl Adenov F 41 PCR Not Detected (NotDetected) 09/16/22 09:41 Stool Astrovirus (PCR) Not Detected (NotDetected) 09/16/22 09:41 Stool Campylobacter PCR Not Detected (NotDetected) 09/16/22 09:41 Stl C. diff Tox B Gene Negative Cdiff Gene (Neg) 09/16/22 09:41 Stool Cryptosporidium PCR Not Detected (NotDetected) 09/16/22 09:41 Stl E.coli Shiga Tox PCR Not Detected (NotDetected) 09/16/22 09:41 Stl Enterotoxigenic E PCR Not Detected (NotDetected) 09/16/22 09:41 Stool EPEC (PCR) Not Detected (NotDetected) 09/16/22 09:41 Stool EAEC (PCR) Not Detected (NotDetected) 09/16/22 09:41 Stl E. histolytica PCR Not Detected (NotDetected) 09/16/22 09:41 Stool Giardia Lamblia PCR Not Detected (NotDetected) 09/16/22 09:41 Stool Salmonella PCR Not Detected (NotDetected) 09/16/22 09:41 Stool Sapovirus (PCR) Not Detected (NotDetected) 09/16/22 09:41 Stl P. shigelloides PCR Not Detected (NotDetected) 09/16/22 09:41 Stl Shigella/EIEC PCR Not Detected (NotDetected) 09/16/22 09:41 St Y.enterocolitica PCR Not Detected (NotDetected) 09/16/22 09:41 Stool Vibrio (PCR) Not Detected (NotDetected) 09/16/22 09:41 Stl Vibrio cholerae PCR Not Detected (NotDetected) 09/16/22 09:41 Stl Norovirus GI/GII PCR Not Detected (NotDetected) 09/16/22 09:41 Ethyl Alcohol mg/dL < 10.0 mg/dl (<10.0) 09/16/22 09:42 Adenovirus (PCR) Not Detected (NotDetected) 09/16/22 09:41 B. pertussis DNA (PCR) Not Detected (NotDetected) 09/16/22 09:41 B.parapertussis DNA PCR Not Detected (NotDetected) 09/16/22 09:41 C. pneumoniae DNA (PCR) Not Detected (NotDetected) 09/16/22 09:41 Coronavirus OC43 (PCR) Not Detected (NotDetected) 09/16/22 09:41 Coronavirus HKU1 (PCR) Not Detected (NotDetected) 09/16/22 09:41 Coronavirus 229E (PCR) Not Detected (NotDetected) 09/16/22 09:41 SARS-CoV-2 (PCR) Not Detected (NotDetected) 09/16/22 09:41 Coronavirus NL63 (PCR) Not Detected (NotDetected) 09/16/22 09:41 Human Metapneumovir PCR DETECTED (NotDetected) A* 09/16/22 09:41 Influenza Type A (PCR) Not Detected (NotDetected) 09/16/22 09:41 Influenza Type B (PCR) Not Detected (NotDetected) 09/16/22 09:41 M. pneumoniae (PCR) Not Detected (NotDetected) 09/16/22 09:41 Parainfluenza 1 (PCR) Not Detected (NotDetected) 09/16/22 09:41 Parainfluenza 2 (PCR) Not Detected (NotDetected) 09/16/22 09:41 Parainfluenza 3 (PCR) Not Detected (NotDetected) 09/16/22 09:41 Parainfluenza 4 (PCR) Not Detected (NotDetected) 09/16/22 09:41 RSV (PCR) Not Detected (NotDetected) 09/16/22 09:41 Entero/Rhino (PCR) Not Detected (NotDetected) 09/16/22 09:41 Impressions Chest X-Ray 09/16/22 09:33 XR chest 1V portable CLINICAL HISTORY: Sepsis. COMPARISON STUDY: Chest CT October 22, 2019. Chest radiograph April 07, 2022. FINDINGS: Old, healed proximal right humeral fracture is noted. There are multiple old, healed bilateral rib fractures. Bilateral clavicular and left humeral internal fixations are incidentally noted. No pneumothorax or pleural effusion. There is no consolidation to suggest pneumonia. No evidence for pulmonary edema. Cardiomediastinal silhouette is stable. IMPRESSION: No acute cardiopulmonary findings. No significant change in appearance of the chest. ACT 112: Negative or not required by law. Electronically signed by: Gigi Dia M.D. 09/16/2022 10:37 AM Abdomen/Pelvis CT 09/16/22 09:[address] WITHOUT CONTRAST CT DOSE: HISTORY: diarrhea, poss colitis TECHNIQUE: Multiaxial CT images of the abdomen and pelvis were performed without contrast. A dose lowering technique was utilized adhering to the principles of ALARA. COMPARISON STUDY: Abdomen and pelvis CT 10/23/2021. FINDINGS: There is sclerosis and moderate loss of height within the T12 vertebral body which favors a subacute to chronic fracture. Mild paravertebral fat stranding/edema at this level. This demonstrates up to 3 mm of retropulsion and mild central canal narrowing at this level. Focal central lucency at the T12 vertebral body which measures 11 mm which is likely due to the nonunited fracture. A pathologic fracture in the setting of underlying lesion or infection is considered less likely but not entirely excluded. Internal fixation of an old, healed right pelvic fracture is noted. There are old, healed bilateral pubic ring fractures identified. Old, healed sacral fracture is noted. Old transverse process fractures within the left side of the lumbar spine. Old bilateral rib fractures are noted. No definite acute fractures identified. Levoscoliosis of the lumbar spine. A few patchy airspace opacities within the lung bases with tree-in-bud nodular opacities and partial opacification of the distal bronchi. This is consistent with a pneumonia and likely due to aspiration. No pneumoperitoneum. No pneumatosis. Superficial soft tissue thickening at the sacrum. No underlying bony destruction to suggest an osteomyelitis at this time. The unenhanced liver, spleen, adrenal glands, pancreas, and kidneys unremarkable. No hydronephrosis. No retroperitoneal lymphadenopathy. Mild calcified plaque within the normal caliber abdominal aorta. Multiple gallstones are again noted. No gallbladder wall thickening. The gallbladder is decompressed. No retroperitoneal or pelvic lymphadenopathy. No pelvic free fluid. The uterus and adnexa are unremarkable. Mild left anterior bladder wall thickening. Suboptimal evaluation for bowel pathology due to the lack of intravenous and oral contrast. However, there is no definite bowel wall thickening or obstruction. Fluid-filled large and small bowel is noted. IMPRESSION: 1. Fluid-filled nondilated loops of large and small bowel seen throughout the abdomen. This favors a diarrheal illness/gastroenteritis. 2. No evidence for a bowel obstruction. 3. Cholelithiasis. No gallbladder wall thickening. 4. A few patchy airspace opacities within the lung bases with tree-in-bud nodular opacities and partial opacification of the distal bronchi. This is consistent with a pneumonia and likely due to aspiration. 5. Mild left anterior bladder wall thickening. Recommend correlation with urinalysis. 6. Multiple old, healed fractures as described above. 7. There is sclerosis and moderate loss of height within the T12 vertebral body which favors a subacute to chronic fracture. Mild paravertebral fat stranding/edema is noted at this level. Focal central lucency at the T12 vertebral body which measures 11 mm which is likely due to the nonunited fracture. A pathologic fracture in the setting of an underlying lesion or infection is considered less likely but not entirely excluded. ACT 112: Negative or not required by law. Electronically signed by: Gerald Cee M.D. 09/16/2022 11:[address] 09/16/22 09:39 CT OF THE HEAD WITHOUT CONTRAST CLINICAL HISTORY: Confusion. COMPARISON STUDY: Head CT October 22, 2019. CT DOSE: 871.14 mGy.cm TECHNIQUE: Helical axial images of the head were obtained without IV contrast. Automated exposure control was utilized for the study. A dose lowering technique was utilized adhering to the principles of ALARA. FINDINGS: No acute intracranial hemorrhage, midline shift or mass effect is present. White matter hypodensity suggests small vessel disease. Ventricular sy stem is unremarkable. The basal cisterns are patent. No extra-axial collections are present. There are no findings to suggest acute dural sinus thrombosis or acute territorial infarct. No significant calvarial abnormalities are present. Visualized portions of the sinuses and mastoid air cells are clear. IMPRESSION: No acute intracranial findings. ACT 112: Negative or not required by law. Electronically signed by: Gigi Dia M.D. 09/16/2022 11:10 AM Venous Doppler Study 09/16/22 12:48 Exam(s): US VENOUS BILATERAL LOWER EXTREMITIES EXAM: US Duplex Bilateral Lower Extremities Veins CLINICAL HISTORY: Reason for exam: Le swelling, r/o DVT. TECHNIQUE: Real-time duplex ultrasound scan of the bilateral lower extremity veins integrating B-mode two-dimensional vascular structure, Doppler spectral analysis, color flow Doppler imaging and compression. COMPARISON: None. FINDINGS: Right deep veins: Unremarkable. No DVT in the right common femoral, femoral, proximal deep femoral or popliteal veins. The veins demonstrate normal color flow, are normally compressible, with normal phasic flow and/or augmentation response. Right superficial veins: Unremarkable. No thrombus in the visualized right great saphenous vein. Left deep veins: Unremarkable. No DVT in the left common femoral, femoral, proximal deep femoral or popliteal veins. The veins demonstrate normal color flow, are normally compressible, with normal phasic flow and/or augmentation response. Left superficial veins: Unremarkable. No thrombus in the visualized left great saphenous vein. Soft tissues: No acute findings. No popliteal cyst. Other findings: Suboptimally visualized calf veins with visualized portion revealing normal flow. IMPRESSION: No ultrasonographic evidence of deep venous thrombosis involving the bilateral lower extremities. Electronically signed by: Kelsi Theodore MD 09/16/22 21:59 PM (5) Diarrhea Diarrhea type: unspecified type Qualified Code(s): R19.7 - Diarrhea, unspecified
[2022-09-18 17:19] LABS: Amphetamines+Metham, Urine Neg (Neg); Barbiturates, Urine Neg (Neg); Benzodiazepine, Urine Neg (Neg); Cocaine, Urine Neg (Neg); MDMA (Ecstacy), Urine Neg (Neg); Methadone, Urine Neg (Neg); Opiate, Urine Neg (Neg); Phencyclidine, Urine Neg (Neg)
[2022-09-18] MEDS: cefTRIAXone SODIUM 1,000 MG in DEXTROSE 5% AD-VAN 50 ML IV SCH (21:01)
[2022-09-19] MEDS: metroNIDAZOLE 500 MG/100 ML BAG IV SCH ×3 (05:34→23:02)
[2022-09-19 08:21] LABS: Hematocrit (blood only) 33.2 % (37.0-47.0); Hemoglobin 12.2 g/dl (12.0-16.0); Mean Corpuscular Hemoglobin 33.8 pg (25.0-34.0); Mean Corpuscular Hgb Conc 36.7 g/dL (32.0-36.0); Mean Platelet Volume 8.9 fL (9.4-12.4); Platelet Count 170 K/uL (130-400); RDW Coefficient of Variation 13.2 % (11.5-14.5); RDW Standard Deviation 45.2 fL (36.4-46.3); Red Blood Count 3.61 M/uL (4.20-5.40)
[2022-09-19] MEDS: PANCREAZE (LIPASE 10,500U) CAP PO SCH ×3 (08:25→16:12)
[2022-09-19] MEDS: ENOXAPARIN INJ 30 MG/0.3 ML SYR SQ SCH (08:26)
[2022-09-19] MEDS: HYDROCORTISONE 10 MG TAB PO SCH ×2 (08:26→13:55)
[2022-09-19] MEDS: FOLIC ACID 1 MG TAB PO SCH (08:26)
[2022-09-19] MEDS: PANTOprazole 40 MG TAB PO SCH (08:26)
[2022-09-19] MEDS: NYSTATIN OINT 15 GM TUBE EXT SCH ×2 (08:27→23:02)
[2022-09-19] MEDS: FLUTICASONE PROPIONATE NA SPR 16 GM BTL NAE SCH (08:28)
[2022-09-19] MEDS: FLUTICASONE FUROATE 100MCG 14 PUFFS/INHALER INH SCH (08:28)
[2022-09-19] MEDS: guaiFENesin 600 MG TABCR PO SCH ×2 (08:28→23:01)
[2022-09-19 08:38] LABS: Albumin Globulin Ratio 1.4 (0.9-2); BUN Creatinine Ratio 12.9 (10-20); Bilirubin,Total 0.3 mg/dl (0.2-1.0); Calcium 8.3 mg/dl (8.6-10.3); Est GFR (African American) 142.7 ml/min; Est GFR (Non-African American) 123.1 ml/min; Globulin 2.2 gm/dl (2.5-4.0); Potassium 3.7 mmol/L (3.5-5.1); Total Protein 5.2 gm/dl (6.0-8.3)
[2022-09-19 08:39] LABS: Immature Granulocytes # (auto) 0.03 K/uL (0.01-0.20); Immature Granulocytes % (auto) 0.7 %; Lymphocytes % (auto) 39.5 %; Monocytes # (auto) 0.66 K/uL (0.11-0.59); Monocytes % (auto) 15.3 %; Neutrophils # (auto) 1.91 K/uL (1.40-6.50); Neutrophils % (auto) 44.5 %
[2022-09-19] MEDS ORDERED: COUGH DROP (SUGAR FREE) LOZ 24 LOZ/1 BOX BUCCAL PRN (12:07)
--- NOTE | 2022-09-19 13:40 | Hospitalist Progress Note ---
Date of Service September 19, 2022 Assessment & Plan (1) Adrenal insufficiency: Plan: h/o this per records. Per records she takes hydrocortisone 20 mg every morning and 10 mg nightly. Patient received extra stress dose steroid earlier in the hospitalization. change back to hydrocortisone 20 mg a.m. and 10 mg in afternoon. (2) Acute hyponatremia: Plan: Likely related to poor oral intake, adrenal insufficiency Sodium on admission 118; Labs reviewed today; improved to 131 Continue fluid restriction of 1500 mL. Obtain BMP daily (3) Weakness: Plan: Multifactorial likely secondary to possible adrenal crisis in setting of infection. Cont with hydrocortisone use and supportive care. PT OT recommended rehab. (4) Protein calorie malnutrition: Plan: Longstanding protein calorie malnutrition that is multifactorial including poor PO intake in setting of poor PO intake and heavy alcohol use. 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 (5) Diarrhea: (6) Gastroenteritis: Plan: CT abdomen pelvis suggest gastroenteritis. Cont to monitor electrolytes and replace as needed. cont supportive care. (7) Aspiration pneumonia: Plan: known substance abuse history with poor health generally puts her at risk for aspiration. A few patchy airspace opacities in the lung bases suggestive of possible pneumonia secondary to aspiration. Currently on Rocephin/Flagyl ; complete 5-day course. Swallow evaluation done; recommend to continue same diet. (8) Infection due to human metapneumovirus (hMPV): Plan: supportive care at this time. (9) Alcohol use: Plan: This likely contributes to poor nutrition and low sodium. Monitor closely for withdrawal. (10) Smoking: Plan: h/o this. Nicoderm patch as needed. (11) Osteoporosis: (12) Rheumatoid arthritis: Plan: Limited records available. Patient is unaware of what medications she is using. Per previous notes she is not on DMARDs (13) Frequent falls: Plan: 2/2 poor overall health and recent hip fracture. She was treated for a right displaced femoral fracture status post intramedullary nail in March 2022. She developed acute on chronic anemia secondary to blood loss. She was transition to [facility] for rehab. She has multiple old healed fractures in the bilateral ribs. There is loss of height within the T12 vertebral body which favors a subacute to chronic fracture. She is not reporting any acute pain. There is a focal central lucency at the T12 vertebral body which measures 11 mm likely due to the nonunited fracture however a pathologic fracture is considered less likely but not entirely excluded. As she is not reporting any back pain this should be followed up as outpatient. Severe protein calorie malnutritionIn the setting of chronic alcoholism, acute aspiration pneumonia, and acute adrenal crisis: -Weight loss noted since last hospitalization. Nutritional supplement ordered. Lovenox Full Code Dispo-PT OT eval done; recommends SNF. Case management on board. Can be discharged when placement is available. Time spent evaluating patient, direct bedside care, chart review, placing orders, interpretation of diagnostic studies, discussion with consultants, patient, and family members, as well as other required patient management activities is 60 minutes. Please note the above document was generated using voice recognition software. It may contain grammatical, syntax or spelling errors. Any formal questions or concerns about the content, text or information contained within the body of this dictation should be directly addressed to the provider for clarification Admission and Anticipated Discharge Date Admission Date: September 16, 2022 Subjective Patient seen and examined at bedside. She reports that she is feeling much better and more energetic today compared to previous days. Review of Systems Review of Systems: All systems reviewed & are unremarkable except as noted in Subjective Physical Exam Physical Exam: CONSTITUTIONAL: thin, appears malnourished, NAD EYES: normal conjunctivae, no scleral icterus ENT: external ear and nose normal, poor dentition NECK: trachea midline RESPIRATORY: clear to auscultation bilaterally, no crackles, rales or wheezes, normal respiratory effort CARDIOVASCULAR: regular rate and rhythm, S1 and 2 heard without murmurs, gallops or rubs, no JVD, no peripheral edema CHEST: inspection of chest was normal GASTROINTESTINAL: soft, nontender, no guarding MUSCULOSKELETAL: generalized weakness, cannot sit up in bed independently, head is normocephalic and atraumatic SKIN: warm and dry NEUROLOGIC: CN 2-12 grossly intact, no sensory deficit, normal cognition, normal speech, no tremor PSYCHIATRIC: alert cooperative and answering questions appropriately, able to follow instructions but mostly vocalizing to be left alone. Results & Data Results & Data Vital Signs (Past 12 Hours) Vital Signs Temp Pulse Pulse Resp BP Pulse Ox O2 Del Method 09/19/22 08:30 Room Air 09/19/22 11:02 36.3 C L 77 18 135/84 96 Room Air 09/19/22 09:47 64 09/19/22 07:26 36.5 C 68 18 130/87 93 Room Air 09/19/22 04:00 36.6 C 69 18 135/80 97 Room Air Laboratory Results Laboratory Results WBC 4.30 K/ul (4.8-10.8) L 09/19/22 07:56 RBC 3.61 M/uL (4.20-5.40) L 09/19/22 07:56 Hgb 12.2 g/dl (12.0-16.0) 09/19/22 07:56 Hct 33.2 % (37.0-47.0) L 09/19/22 07:56 MCV 92.0 fL (80.0-100.0) 09/19/22 07:56 MCH 33.8 pg (25.0-34.0) 09/19/22 07:56 MCHC 36.7 g/dL (32.0-36.0) H 09/19/22 07:56 RDW Std Deviation 45.2 fL (36.4-46.3) 09/19/22 07:56 RDW Coeff of Elo 13.2 % (11.5-14.5) 09/19/22 07:56 Plt Count 170 K/uL (130-400) 09/19/22 07:56 MPV 8.9 fL (9.4-12.4) L 09/19/22 07:56 Immature Gran % (Auto) 0.7 % 09/19/22 07:56 Neut % (Auto) 44.5 % 09/19/22 07:56 Lymph % (Auto) 39.5 % 09/19/22 07:56 [place] % (Auto) 15.3 % 09/19/22 07:56 Eos % (Auto) 0.0 % 09/19/22 07:56 Baso % (Auto) 0.0 % 09/19/22 07:56 Neut # (Auto) 1.91 K/uL (1.40-6.50) 09/19/22 07:56 Lymph # (Auto) 1.70 K/uL (1.2-3.4) 09/19/22 07:56 [place] # (Auto) 0.66 K/uL (0.11-0.59) H 09/19/22 07:56 Eos # (Auto) 0.00 K/uL (0-0.50) 09/19/22 07:56 Baso # (Auto) 0.00 K/uL (0-0.2) 09/19/22 07:56 Immature Gran # (Auto) 0.03 K/uL (0.01-0.20) 09/19/22 07:56 PT 12.0 Seconds (9.0-12.0) 09/16/22 09:42 INR 1.1 (0.9-1.1) 09/16/22 09:42 APTT 35.4 Seconds (21.0-31.0) H 09/16/22 09:42 PTT Ratio 1.3 09/16/22 09:42 Sodium 131 mmol/L (136-145) L 09/19/22 07:56 Potassium 3.7 mmol/L (3.5-5.1) 09/19/22 07:56 Chloride 100 mmol/L (98-107) 09/19/22 07:56 Carbon Dioxide 28 mmol/L (21-32) 09/19/22 07:56 Anion Gap 3 (3-11) 09/19/22 07:56 BUN 4 mg/dl (6-23) L 09/19/22 07:56 Creatinine 0.31 mg/dl (0.6-1.2) L 09/19/22 07:56 Est Cr Clr Drug Dosing 154.0 ml/min 09/19/22 07:56 Est GFR ( Amer) 142.7 ml/min 09/19/22 07:56 Est GFR (Non-Af Amer) 123.1 ml/min 09/19/22 07:56 BUN/Creatinine Ratio 12.9 (10-20) 09/19/22 07:56 Glucose 87 mg/dl (70-99(Fasting)) 09/19/22 07:56 Osmolality 249 mOsm/kg (280-300) L 09/16/22 12:19 Lactate 1.1 mmol/L (0.4-2.0) 09/16/22 10:20 Calcium 8.3 mg/dl (8.6-10.3) L 09/19/22 07:56 Phosphorus 1.9 mg/dl (2.5-4.9) L 09/18/22 06:50 Magnesium 1.8 mg/dl (1.7-2.4) 09/18/22 06:50 Total Bilirubin 0.3 mg/dl (0.2-1.0) 09/19/22 07:56 Direct Bilirubin 0.1 mg/dl (0-0.2) 09/16/22 09:42 AST 20 U/L (13-39) 09/19/22 07:56 ALT 15 U/L (7-52) 09/19/22 07:56 Alkaline Phosphatase 63 U/L (34-104) 09/19/22 07:56 Ammonia 34.0 umol/L (18-72) 09/17/22 07:17 Total Creatine Kinase 22 U/L (26-192) L 09/18/22 06:50 Troponin I High Sens 16.9 pg/ml (0-14) H D 09/16/22 15:47 Total Protein 5.2 gm/dl (6.0-8.3) L 09/19/22 07:56 Albumin 3.0 gm/dl (3.4-5.0) L 09/19/22 07:56 Globulin 2.2 gm/dl (2.5-4.0) L 09/19/22 07:56 Albumin/Globulin Ratio 1.4 (0.9-2) 09/19/22 07:56 Vitamin B12 129 pg/ml (180-914) L 09/16/22 12:29 Folate 20.08 ng/ml (>5.38) 09/16/22 12:29 Procalcitonin 0.07 ng/ml (0-0.5) 09/16/22 09:42 TSH 0.913 uIu/ml (0.300-4.500) 09/17/22 07:17 Urine Color Yellow 09/16/22 09:49 Urine Appearance Clear (Clear) 09/16/22 09:49 Urine pH 6.5 (4.5-7.5) 09/16/22 09:49 Ur Specific Carey 1.006 (1.000-1.030) 09/16/22 09:49 Urine Protein Negative (Negative) 09/16/22 09:49 Urine Glucose (UA) Negative (Negative) 09/16/22 09:49 Urine Ketones 2+ (Negative) H 09/16/22 09:49 Urine Blood Negative (Negative) 09/16/22 09:49 Urine Nitrite Negative (Negative) 09/16/22 09:49 Urine Bilirubin Negative (Negative) 09/16/22 09:49 Urine Urobilinogen Negative (Negative) 09/16/22 09:49 Ur Leukocyte Esterase Negative (Negative) 09/16/22 09:49 Urine Osmolality 152 mOsm/kg (500-800) L 09/16/22 09:49 Ur Random Sodium < 10 mmol/L 09/16/22 12:10 Stl C. cayetanensis PCR Not Detected (NotDetected) 09/16/22 09:41 Stool Rotavirus A PCR Not Detected (NotDetected) 09/16/22 09:41 Stl Adenov F 4041 PCR Not Detected (NotDetected) 09/16/22 09:41 Stool Astrovirus (PCR) Not Detected (NotDetected) 09/16/22 09:41 Stool Campylobacter PCR Not Detected (NotDetected) 09/16/22 09:41 Stl C. diff Tox B Gene Negative Cdiff Gene (Neg) 09/16/22 09:41 Stool Cryptosporidium PCR Not Detected (NotDetected) 09/16/22 09:41 Stl E.coli Shiga Tox PCR Not Detected (NotDetected) 09/16/22 09:41 Stl Enterotoxigenic E PCR Not Detected (NotDetected) 09/16/22 09:41 Stool EPEC (PCR) Not Detected (NotDetected) 09/16/22 09:41 Stool EAEC (PCR) Not Detected (NotDetected) 09/16/22 09:41 Stl E. histolytica PCR Not Detected (NotDetected) 09/16/22 09:41 Stool Giardia Lamblia PCR Not Detected (NotDetected) 09/16/22 09:41 Stool Salmonella PCR Not Detected (NotDetected) 09/16/22 09:41 Stool Sapovirus (PCR) Not Detected (NotDetected) 09/16/22 09:41 Stl P. shigelloides PCR Not Detected (NotDetected) 09/16/22 09:41 Stl Shigella/EIEC PCR Not Detected (NotDetected) 09/16/22 09:41 St Y.enterocolitica PCR Not Detected (NotDetected) 09/16/22 09:41 Stool Vibrio (PCR) Not Detected (NotDetected) 09/16/22 09:41 Stl Vibrio cholerae PCR Not Detected (NotDetected) 09/16/22 09:41 Stl Norovirus GI/GII PCR Not Detected (NotDetected) 09/16/22 09:41 Urine Opiates Screen Neg (Neg) 09/18/22 15:40 Ur Methadone, Qual Neg (Neg) 09/18/22 15:40 Urine Barbiturates Neg (Neg) 09/18/22 15:40 Ur Phencyclidine (PCP) Neg (Neg) 09/18/22 15:40 U Amphetamin/Meth Scrn Neg (Neg) 09/18/22 15:40 MDMA (Ecstasy) Screen Neg (Neg) 09/18/22 15:40 U Benzodiazepines Scrn Neg (Neg) 09/18/22 15:40 Ur Cocaine Metabolite Neg (Neg) 09/18/22 15:40 U Marijuana (THC) Screen Neg (Neg) 09/18/22 15:40 Ethyl Alcohol mg/dL < 10.0 mg/dl (<10.0) 09/16/22 09:42 Adenovirus (PCR) Not Detected (NotDetected) 09/16/22 09:41 B. pertussis DNA (PCR) Not Detected (NotDetected) 09/16/22 09:41 B.parapertussis DNA PCR Not Detected (NotDetected) 09/16/22 09:41 C. pneumoniae DNA (PCR) Not Detected (NotDetected) 09/16/22 09:41 Coronavirus OC43 (PCR) Not Detected (NotDetected) 09/16/22 09:41 Coronavirus HKU1 (PCR) Not Detected (NotDetected) 09/16/22 09:41 Coronavirus 229E (PCR) Not Detected (NotDetected) 09/16/22 09:41 SARS-CoV-2 (PCR) Not Detected (NotDetected) 09/16/22 09:41 Coronavirus NL63 (PCR) Not Detected (NotDetected) 09/16/22 09:41 Human Metapneumovir PCR DETECTED (NotDetected) A* 09/16/22 09:41 Influenza Type A (PCR) Not Detected (NotDetected) 09/16/22 09:41 Influenza Type B (PCR) Not Detected (NotDetected) 09/16/22 09:41 M. pneumoniae (PCR) Not Detected (NotDetected) 09/16/22 09:41 Parainfluenza 1 (PCR) Not Detected (NotDetected) 09/16/22 09:41 Parainfluenza 2 (PCR) Not Detected (NotDetected) 09/16/22 09:41 Parainfluenza 3 (PCR) Not Detected (NotDetected) 09/16/22 09:41 Parainfluenza 4 (PCR) Not Detected (NotDetected) 09/16/22 09:41 RSV (PCR) Not Detected (NotDetected) 09/16/22 09:41 Entero/Rhino (PCR) Not Detected (NotDetected) 09/16/22 09:41 Impressions Chest X-Ray 09/16/22 09:33 XR chest 1V portable CLINICAL HISTORY: Sepsis. COMPARISON STUDY: Chest CT October 22, 2019. Chest radiograph April 07, 2022. FINDINGS: Old, healed proximal right humeral fracture is noted. There are multiple old, healed bilateral rib fractures. Bilateral clavicular and left humeral internal fixations are incidentally noted. No pneumothorax or pleural effusion. There is no consolidation to suggest pneumonia. No evidence for pulmonary edema. Cardiomediastinal silhouette is stable. IMPRESSION: No acute cardiopulmonary findings. No significant change in appearance of the chest. ACT 112: Negative or not required by law. Electronically signed by: Gigi Dia M.D. 09/16/2022 10:37 AM Abdomen/Pelvis CT 09/16/22 09:[address] WITHOUT CONTRAST CT DOSE: HISTORY: diarrhea, poss colitis TECHNIQUE: Multiaxial CT images of the abdomen and pelvis were performed without contrast. A dose lowering technique was utilized adhering to the principles of ALARA. COMPARISON STUDY: Abdomen and pelvis CT 10/23/2021. FINDINGS: There is sclerosis and moderate loss of height within the T12 vertebral body which favors a subacute to chronic fracture. Mild paravertebral fat stranding/edema at this level. This demonstrates up to 3 mm of retropulsion and mild central canal narrowing at this level. Focal central lucency at the T12 vertebral body which measures 11 mm which is likely due to the nonunited fracture. A pathologic fracture in the setting of underlying lesion or infection is considered less likely but not entirely excluded. Internal fixation of an old, healed right pelvic fracture is noted. There are old, healed bilateral pubic ring fractures identified. Old, healed sacral fracture is noted. Old t ransverse process fractures within the left side of the lumbar spine. Old bilateral rib fractures are noted. No definite acute fractures identified. Levoscoliosis of the lumbar spine. A few patchy airspace opacities within the lung bases with tree-in-bud nodular opacities and partial opacification of the distal bronchi. This is consistent with a pneumonia and likely due to aspiration. No pneumoperitoneum. No pneumatosis. Superficial soft tissue thickening at the sacrum. No underlying bony destruction to suggest an osteomyelitis at this time. The unenhanced liver, spleen, adrenal glands, pancre as, and kidneys unremarkable. No hydronephrosis. No retroperitoneal lymphadenopathy. Mild calcified plaque within the normal caliber abdominal aorta. Multiple gallstones are again noted. No gallbladder wall thickening. The gallbladder is decompressed. No retroperitoneal or pelvic lymphadenopathy. No pelvic free fluid. The uterus and adnexa are unremarkable. Mild left anterior bladder wall thickening. Suboptimal evaluation for bowel pathology due to the lack of intravenous and oral contrast. However, there is no definite bowel wall thickening or obstruction. Fluid-filled large and small bowel is noted. IMPRESSION: 1. Fluid-filled nondilated loops of large and small bowel seen throughout the abdomen. This favors a diarrheal illness/gastroenteritis. 2. No evidence for a bowel obstruction. 3. Cholelithiasis. No gallbladder wall thickening. 4. A few patchy airspace opacities within the lung bases with tree-in-bud nodular opacities and partial opacification of the distal bronchi. This is consistent with a pneumonia and likely due to aspiration. 5. Mild left anterior bladder wall thickening. Recommend correlation with urinalysis. 6. Multiple old, healed fractures as described above. 7. There is sclerosis and moderate loss of height within the T12 vertebral body which favors a subacute to chronic fracture. Mild paravertebral fat stranding/edema is noted at this level. Focal central lucency at the T12 vertebral body which measures 11 mm which is likely due to the nonunited fracture. A pathologic fracture in the setting of an underlying lesion or infection is considered less likely but not entirely excluded. ACT 112: Negative or not required by law. Electronically signed by: Gerald Cee M.D. 09/16/2022 11:[address] 09/16/22 09:39 CT OF THE HEAD WITHOUT CONTRAST CLINICAL HISTORY: Confusion. COMPARISON STUDY: Head CT October 22, 2019. CT DOSE: 871.14 mGy.cm TECHNIQUE: Helical axial images of the head were obtained without IV contrast. Automated exposure control was utilized for the study. A dose lowering technique was utilized adhering to the principles of ALARA. FINDINGS: No acute intracranial hemorrhage, midline shift or mass effect is present. White matter hypodensity suggests small vessel disease. Ventricular system is unremarkable. The basal cisterns are patent. No extra-axial collections are present. There are no findings to suggest acute dural sinus thrombosis or acute territorial infarct. No significant calvarial abnormalities are present. Visualized portions of the sinuses and mastoid air cells are clear. IMPRESSION: No acute intracranial findings. ACT 112: Negative or not required by law. Electronically signed by: Gigi Dia M.D. 09/16/2022 11:10 AM Venous Doppler Study 09/16/22 12:48 Exam(s): US VENOUS BILATERAL LOWER EXTREMITIES EXAM: US Duplex Bilateral Lower Extremities Veins CLINICAL HISTORY: Reason for exam: Le swelling, r/o DVT. TECHNIQUE: Real-time duplex ultrasound scan of the bilateral lower extremity veins integrating B-mode two-dimensional vascular structure, Doppler spectral analysis, color flow Doppler imaging and compression. COMPARISON: None. FINDINGS: Right deep veins: Unremarkable. No DVT in the right common femoral, femoral, proximal deep femoral or popliteal veins. The veins demonstrate normal color flow, are normally compressible, with normal phasic flow and/or augmentation response. Right superficial veins: Unremarkable. No thrombus in the visualized right great saphenous vein. Left deep veins: Unremarkable. No DVT in the left common femoral, femoral, proximal deep femoral or popliteal veins. The veins demonstrate normal color flow, are normally compressible, with normal phasic flow and/or augmentation response. Left superficial veins: Unremarkable. No thrombus in the visualized left great saphenous vein. Soft tissues: No acute findings. No popliteal cyst. Other findings: Suboptimally visualized calf veins with visualized portion revealing normal flow. IMPRESSION: No ultrasonographic evidence of deep venous thrombosis involving the bilateral lower extremities. Electronically signed by: Kelsi Theodore MD 09/16/22 21:59 PM (5) Diarrhea Diarrhea type: unspecified type Qualified Code(s): R19.7 - Diarrhea, unspecified
[2022-09-19] MEDS: ALBUT/IPRATROP 3MG/0.5MG NEB 3 ML VIAL NEB SCH ×2 (14:47→19:06)
[2022-09-19] MEDS: SODIUM CHLOR 7% 4 ML NEB NEB SCH (19:06)
[2022-09-19] MEDS: cefTRIAXone SODIUM 1,000 MG in DEXTROSE 5% AD-VAN 50 ML IV SCH (22:59)
[2022-09-20] MEDS: metroNIDAZOLE 500 MG/100 ML BAG IV SCH ×3 (06:20→21:46)
[2022-09-20] MEDS: ALBUT/IPRATROP 3MG/0.5MG NEB 3 ML VIAL NEB SCH ×4 (07:08→19:16)
[2022-09-20] MEDS: SODIUM CHLOR 7% 4 ML NEB NEB SCH ×2 (07:08→19:17)
[2022-09-20] MEDS: PANCREAZE (LIPASE 10,500U) CAP PO SCH ×3 (08:17→16:59)
[2022-09-20] MEDS: ENOXAPARIN INJ 30 MG/0.3 ML SYR SQ SCH (08:17)
[2022-09-20] MEDS: FLUTICASONE PROPIONATE NA SPR 16 GM BTL NAE SCH (08:18)
[2022-09-20] MEDS: guaiFENesin 600 MG TABCR PO SCH ×3 (08:18→23:43)
[2022-09-20] MEDS: HYDROCORTISONE 10 MG TAB PO SCH ×2 (08:18→13:15)
[2022-09-20] MEDS: FLUTICASONE FUROATE 100MCG 14 PUFFS/INHALER INH SCH (08:18)
[2022-09-20] MEDS: FOLIC ACID 1 MG TAB PO SCH (08:18)
[2022-09-20] MEDS: PANTOprazole 40 MG TAB PO SCH (08:18)
[2022-09-20] MEDS: NYSTATIN OINT 15 GM TUBE EXT SCH ×2 (08:18→21:48)
[2022-09-20 08:39] LABS: Eosinophils # (auto) 0.01 K/uL (0-0.50); Eosinophils % (auto) 0.3 %; Hematocrit (blood only) 31.9 % (37.0-47.0); Hemoglobin 11.5 g/dl (12.0-16.0); Immature Granulocytes # (auto) 0.01 K/uL (0.01-0.20); Immature Granulocytes % (auto) 0.3 %; Lymphocytes # (auto) 1.48 K/uL (1.2-3.4); Lymphocytes % (auto) 43.4 %; Mean Corpuscular Hemoglobin 32.9 pg (25.0-34.0); Mean Corpuscular Hgb Conc 36.1 g/dL (32.0-36.0); Mean Corpuscular Volume 91.1 fL (80.0-100.0); Mean Platelet Volume 9.5 fL (9.4-12.4); Monocytes # (auto) 0.47 K/uL (0.11-0.59); Monocytes % (auto) 13.8 %; Neutrophils # (auto) 1.44 K/uL (1.40-6.50); Neutrophils % (auto) 42.2 %; Platelet Count 184 K/uL (130-400); RDW Coefficient of Variation 13.3 % (11.5-14.5); RDW Standard Deviation 44.8 fL (36.4-46.3); White Blood Count 3.41 K/ul (4.8-10.8)
[2022-09-20 08:54] LABS: Albumin Globulin Ratio 1.3 (0.9-2); Albumin Level 2.7 gm/dl (3.4-5.0); BUN Creatinine Ratio 16.7 (10-20); Bilirubin,Total 0.4 mg/dl (0.2-1.0); Calcium 8.1 mg/dl (8.6-10.3); Creatinine Clr Calc Pharmacy 159.4 ml/min; Est GFR (African American) 144.2 ml/min; Est GFR (Non-African American) 124.5 ml/min; Globulin 2.1 gm/dl (2.5-4.0); Total Protein 4.8 gm/dl (6.0-8.3)
[2022-09-20] MEDS ORDERED: POTASSIUM CHLORIDE CRTAB 20 MEQ TABCR PO STA (10:19)
--- NOTE | 2022-09-20 13:20 | Hospitalist Progress Note ---
Date of Service September 20, 2022 Assessment & Plan (1) Adrenal insufficiency: Plan: h/o this per records. Per records she takes hydrocortisone 20 mg every morning and 10 mg nightly. Patient received extra stress dose steroid earlier in the hospitalization. change back to hydrocortisone 20 mg a.m. and 10 mg in afternoon. (2) Acute hyponatremia: Plan: Likely related to poor oral intake, adrenal insufficiency Sodium on admission 118; Labs reviewed today; improved to 132 Continue fluid restriction of 1500 mL. Obtain BMP daily (3) Weakness: Plan: Multifactorial likely secondary to possible adrenal crisis in setting of infection. Cont with hydrocortisone use and supportive care. PT OT recommended rehab. (4) Protein calorie malnutrition: Plan: Longstanding protein calorie malnutrition that is multifactorial including poor PO intake in setting of poor PO intake and heavy alcohol use. Consult rod straightener. (5) Diarrhea: (6) Gastroenteritis: Plan: CT abdomen pelvis suggest gastroenteritis. Cont to monitor electrolytes and replace as needed. cont supportive care. (7) Aspiration pneumonia: Plan: known substance abuse history with poor health generally puts her at risk for aspiration. A few patchy airspace opacities in the lung bases suggestive of possible pneumonia secondary to aspiration. Currently on Rocephin/Flagyl ; complete 5-day course. Swallow evaluation done; recommend to continue same diet. (8) Infection due to human metapneumovirus (hMPV): Plan: supportive care at this time. (9) Alcohol use: Plan: This likely contributes to poor nutrition and low sodium. Monitor closely for withdrawal. (10) Smoking: Plan: h/o this. Nicoderm patch as needed. (11) Osteoporosis: (12) Rheumatoid arthritis: Plan: Limited records available. Patient is unaware of what medications she is using. Per previous notes she is not on DMARDs (13) Frequent falls: Plan: 2/2 poor overall health and recent hip fracture. She was treated for a right displaced femoral fracture status post intramedullary nail in March 2022. She developed acute on chronic anemia secondary to blood loss. She was transition to [facility] for rehab. She has multiple old healed fractures in the bilateral ribs. There is loss of height within the T12 vertebral body which favors a subacute to chronic fracture. She is not reporting any acute pain. There is a focal central lucency at the T12 vertebral body which measures 11 mm likely due to the nonunited fracture however a pathologic fracture is considered less likely but not entirely excluded. As she is not reporting any back pain this should be followed up as outpatient. Severe protein calorie malnutritionIn the setting of chronic alcoholism, acute aspiration pneumonia, and acute adrenal crisis: -Weight loss noted since last hospitalization. Nutritional supplement ordered. Lovenox Full Code Dispo-PT OT eval done; recommends SNF. Case management on board. Can be discharged when placement is available. Please note the above document was generated using voice recognition software. It may contain grammatical, syntax or spelling errors. Any formal questions or concerns about the content, text or information contained within the body of this dictation should be directly addressed to the provider for clarification Admission and Anticipated Discharge Date Admission Date: September 16, 2022 Subjective Patient seen and examined at bedside. She reports improvement in her breathing. Reports improved energy. Review of Systems Review of Systems: All systems reviewed & are unremarkable except as noted in Subjective Physical Exam Physical Exam: CONSTITUTIONAL: thin, appears malnourished, NAD EYES: normal conjunctivae, no scleral icterus ENT: external ear and nose normal, poor dentition NECK: trachea midline RESPIRATORY: clear to auscultation bilaterally, no crackles, rales or wheezes, normal respiratory effort CARDIOVASCULAR: regular rate and rhythm, S1 and 2 heard without murmurs, gallops or rubs, no JVD, no peripheral edema CHEST: inspection of chest was normal GASTROINTESTINAL: soft, nontender, no guarding MUSCULOSKELETAL: generalized weakness, cannot sit up in bed independently, head is normocephalic and atraumatic SKIN: warm and dry NEUROLOGIC: CN 2-12 grossly intact, no sensory deficit, normal cognition, normal speech, no tremor PSYCHIATRIC: alert cooperative and answering questions appropriately. Results & Data Results & Data Vital Signs (Past 12 Hours) Vital Signs Temp Pulse Pulse Pulse Resp BP Pulse Ox 09/20/22 12:30 09/20/22 11:56 36.4 C L 87 20 104/70 96 09/20/22 11:37 78 18 96 09/20/22 08:03 36.5 C 96 H 20 106/77 95 09/20/22 07:53 73 09/20/22 07:08 85 18 93 09/20/22 04:00 36.7 C 91 H 18 110/63 95 O2 Del Method 09/20/22 12:30 Room Air 09/20/22 11:56 Room Air 09/20/22 11:37 Room Air 09/20/22 08:03 Room Air 09/20/22 07:53 09/20/22 07:08 Room Air 09/20/22 04:00 Room Air Laboratory Results Laboratory Results WBC 3.41 K/ul (4.8-10.8) L 09/20/22 07:47 RBC 3.50 M/uL (4.20-5.40) L 09/20/22 07:47 Hgb 11.5 g/dl (12.0-16.0) L 09/20/22 07:47 Hct 31.9 % (37.0-47.0) L 09/20/22 07:47 MCV 91.1 fL (80.0-100.0) 09/20/22 07:47 MCH 32.9 pg (25.0-34.0) 09/20/22 07:47 MCHC 36.1 g/dL (32.0-36.0) H 09/20/22 07:47 RDW Std Deviation 44.8 fL (36.4-46.3) 09/20/22 07:47 RDW Coeff of Elo 13.3 % (11.5-14.5) 09/20/22 07:47 Plt Count 184 K/uL (130-400) 09/20/22 07:47 MPV 9.5 fL (9.4-12.4) 09/20/22 07:47 Immature Gran % (Auto) 0.3 % 09/20/22 07:47 Neut % (Auto) 42.2 % 09/20/22 07:47 Lymph % (Auto) 43.4 % 09/20/22 07:47 [place] % (Auto) 13.8 % 09/20/22 07:47 Eos % (Auto) 0.3 % 09/20/22 07:47 Baso % (Auto) 0.0 % 09/20/22 07:47 Neut # (Auto) 1.44 K/uL (1.40-6.50) 09/20/22 07:47 Lymph # (Auto) 1.48 K/uL (1.2-3.4) 09/20/22 07:47 [place] # (Auto) 0.47 K/uL (0.11-0.59) 09/20/22 07:47 Eos # (Auto) 0.01 K/uL (0-0.50) 09/20/22 07:47 Baso # (Auto) 0.00 K/uL (0-0.2) 09/20/22 07:47 Immature Gran # (Auto) 0.01 K/uL (0.01-0.20) 09/20/22 07:47 PT 12.0 Seconds (9.0-12.0) 09/16/22 09:42 INR 1.1 (0.9-1.1) 09/16/22 09:42 APTT 35.4 Seconds (21.0-31.0) H 09/16/22 09:42 PTT Ratio 1.3 09/16/22 09:42 Sodium 132 mmol/L (136-145) L 09/20/22 07:47 Potassium 3.0 mmol/L (3.5-5.1) L 09/20/22 07:47 Chloride 97 mmol/L (98-107) L 09/20/22 07:47 Carbon Dioxide 28 mmol/L (21-32) 09/20/22 07:47 Anion Gap 7 (3-11) 09/20/22 07:47 BUN 5 mg/dl (6-23) L 09/20/22 07:47 Creatinine 0.30 mg/dl (0.6-1.2) L 09/20/22 07:47 Est Cr Clr Drug Dosing 159.4 ml/min 09/20/22 07:47 Est GFR ( Amer) 144.2 ml/min 09/20/22 07:47 Est GFR (Non-Af Amer) 124.5 ml/min 09/20/22 07:47 BUN/Creatinine Ratio 16.7 (10-20) 09/20/22 07:47 Glucose 106 mg/dl (70-99(Fasting)) H 09/20/22 07:47 Osmolality 249 mOsm/kg (280-300) L 09/16/22 12:19 Lactate 1.1 mmol/L (0.4-2.0) 09/16/22 10:20 Calcium 8.1 mg/dl (8.6-10.3) L 09/20/22 07:47 Phosphorus 1.9 mg/dl (2.5-4.9) L 09/18/22 06:50 Magnesium 1.8 mg/dl (1.7-2.4) 09/18/22 06:50 Total Bilirubin 0.4 mg/dl (0.2-1.0) 09/20/22 07:47 Direct Bilirubin 0.1 mg/dl (0-0.2) 09/16/22 09:42 AST 18 U/L (13-39) 09/20/22 07:47 ALT 14 U/L (7-52) 09/20/22 07:47 Alkaline Phosphatase 56 U/L (34-104) 09/20/22 07:47 Ammonia 34.0 umol/L (18-72) 09/17/22 07:17 Total Creatine Kinase 22 U/L (26-192) L 09/18/22 06:50 Troponin I High Sens 16.9 pg/ml (0-14) H D 09/16/22 15:47 Total Protein 4.8 gm/dl (6.0-8.3) L 09/20/22 07:47 Albumin 2.7 gm/dl (3.4-5.0) L 09/20/22 07:47 Globulin 2.1 gm/dl (2.5-4.0) L 09/20/22 07:47 Albumin/Globulin Ratio 1.3 (0.9-2) 09/20/22 07:47 Vitamin B12 129 pg/ml (180-914) L 09/16/22 12:29 Folate 20.08 ng/ml (>5.38) 09/16/22 12:29 Procalcitonin 0.07 ng/ml (0-0.5) 09/16/22 09:42 TSH 0.913 uIu/ml (0.300-4.500) 09/17/22 07:17 Urine Color Yellow 09/16/22 09:49 Urine Appearance Clear (Clear) 09/16/22 09:49 Urine pH 6.5 (4.5-7.5) 09/16/22 09:49 Ur Specific [place] 1.006 (1.000-1.030) 09/16/22 09:49 Urine Protein Negative (Negative) 09/16/22 09:49 Urine Glucose (UA) Negative (Negative) 09/16/22 09:49 Urine Ketones 2+ (Negative) H 09/16/22 09:49 Urine Blood Negative (Negative) 09/16/22 09:49 Urine Nitrite Negative (Negative) 09/16/22 09:49 Urine Bilirubin Negative (Negative) 09/16/22 09:49 Urine Urobilinogen Negative (Negative) 09/16/22 09:49 Ur Leukocyte Esterase Negative (Negative) 09/16/22 09:49 Urine Osmolality 152 mOsm/kg (500-800) L 09/16/22 09:49 Ur Random Sodium < 10 mmol/L 09/16/22 12:10 Stl C. cayetanensis PCR Not Detected (NotDetected) 09/16/22 09:41 Stool Rotavirus A PCR Not Detected (NotDetected) 09/16/22 09:41 Stl Adenov F 4041 PCR Not Detected (NotDetected) 09/16/22 09:41 Stool Astrovirus (PCR) Not Detected (NotDetected) 09/16/22 09:41 Stool Campylobacter PCR Not Detected (NotDetected) 09/16/22 09:41 Stl C. diff Tox B Gene Negative Cdiff Gene (Neg) 09/16/22 09:41 Stool Cryptosporidium PCR Not Detected (NotDetected) 09/16/22 09:41 Stl E.coli Shiga Tox PCR Not Detected (NotDetected) 09/16/22 09:41 Stl Enterotoxigenic E PCR Not Detected (NotDetected) 09/16/22 09:41 Stool EPEC (PCR) Not Detected (NotDetected) 09/16/22 09:41 Stool EAEC (PCR) Not Detected (NotDetected) 09/16/22 09:41 Stl E. histolytica PCR Not Detected (NotDetected) 09/16/22 09:41 Stool Giardia Lamblia PCR Not Detected (NotDetected) 09/16/22 09:41 Stool Salmonella PCR Not Detected (NotDetected) 09/16/22 09:41 Stool Sapovirus (PCR) Not Detected (NotDetected) 09/16/22 09:41 Stl P. shigelloides PCR Not Detected (NotDetected) 09/16/22 09:41 Stl Shigella/EIEC PCR Not Detected (NotDetected) 09/16/22 09:41 St Y.enterocolitica PCR Not Detected (NotDetected) 09/16/22 09:41 Stool Vibrio (PCR) Not Detected (NotDetected) 09/16/22 09:41 Stl Vibrio cholerae PCR Not Detected (NotDetected) 09/16/22 09:41 Stl Norovirus GI/GII PCR Not Detected (NotDetected) 09/16/22 09:41 Urine Opiates Screen Neg (Neg) 09/18/22 15:40 Ur Methadone, Qual Neg (Neg) 09/18/22 15:40 Urine Barbiturates Neg (Neg) 09/18/22 15:40 Ur Phencyclidine (PCP) Neg (Neg) 09/18/22 15:40 U Amphetamin/Meth Scrn Neg (Neg) 09/18/22 15:40 MDMA (Ecstasy) Screen Neg (Neg) 09/18/22 15:40 U Benzodiazepines Scrn Neg (Neg) 09/18/22 15:40 Ur Cocaine Metabolite Neg (Neg) 09/18/22 15:40 U Marijuana (THC) Screen Neg (Neg) 09/18/22 15:40 Ethyl Alcohol mg/dL < 10.0 mg/dl (<10.0) 09/16/22 09:42 Adenovirus (PCR) Not Detected (NotDetected) 09/16/22 09:41 B. pertussis DNA (PCR) Not Detected (NotDetected) 09/16/22 09:41 B.parapertussis DNA PCR Not Detected (NotDetected) 09/16/22 09:41 C. pneumoniae DNA (PCR) Not Detected (NotDetected) 09/16/22 09:41 Coronavirus OC43 (PCR) Not Detected (NotDetected) 09/16/22 09:41 Coronavirus HKU1 (PCR) Not Detected (NotDetected) 09/16/22 09:41 Coronavirus 229E (PCR) Not Detected (NotDetected) 09/16/22 09:41 SARS-CoV-2 (PCR) Not Detected (NotDetected) 09/16/22 09:41 Coronavirus NL63 (PCR) Not Detected (NotDetected) 09/16/22 09:41 Human Metapneumovir PCR DETECTED (NotDetected) A* 09/16/22 09:41 Influenza Type A (PCR) Not Detected (NotDetected) 09/16/22 09:41 Influenza Type B (PCR) Not Detected (NotDetected) 09/16/22 09:41 M. pneumoniae (PCR) Not Detected (NotDetected) 09/16/22 09:41 Parainfluenza 1 (PCR) Not Detected (NotDetected) 09/16/22 09:41 Parainfluenza 2 (PCR) Not Detected (NotDetected) 09/16/22 09:41 Parainfluenza 3 (PCR) Not Detected (NotDetected) 09/16/22 09:41 Parainfluenza 4 (PCR) Not Detected (NotDetected) 09/16/22 09:41 RSV (PCR) Not Detected (NotDetected) 09/16/22 09:41 Entero/Rhino (PCR) Not Detected (NotDetected) 09/16/22 09:41 Impressions Chest X-Ray 09/16/22 09:33 XR chest 1V portable CLINICAL HISTORY: Sepsis. COMPARISON STUDY: Chest CT October 22, 2019. Chest radiograph April 07, 2022. FINDINGS: Old, healed proximal right humeral fracture is noted. There are multiple old, healed bilateral rib fractures. Bilateral clavicular and left humeral internal fixations are incidentally noted. No pneumothorax or pleural effusion. There is no consolidation to suggest pneumonia. No evidence for pulmonary edema. Cardiomediastinal silhouette is stable. IMPRESSION: No acute cardiopulmonary findings. No significant change in appearance of the chest. ACT 112: Negative or not required by law. Electronically signed by: Gigi Dia M.D. 09/16/2022 10:37 AM Abdomen/Pelvis CT 09/16/22 09:[address] WITHOUT CONTRAST CT DOSE: HISTORY: diarrhea, poss colitis TECHNIQUE: Multiaxial CT images of the abdomen and pelvis were performed without contrast. A dose lowering technique was utilized adhering to the principles of ALARA. COMPARISON STUDY: Abdomen and pelvis CT 10/23/2021. FINDINGS: There is sclerosis and moderate loss of height within the T12 vertebral body which favors a subacute to chronic fracture. Mild paravertebral fat stranding/edema at this level. This demonstrates up to 3 mm of retropulsion and mild central canal narrowing at this level. Focal central lucency at the T12 vertebral body which measures 11 mm which is likely due to the nonunited fracture. A pathologic fracture in the setting of underlying lesion or infection is considered less likely but not entirely excluded. Internal fixation of an old, healed right pelvic fracture is noted. There are old, healed bilateral pubic ring fractures identified. Old, healed sacral fracture is noted. Old transverse process fractures within the left side of the lumbar spine. Old bilateral rib fractures are noted. No definite acute fractures identified. Levoscoliosis of the lumbar spine. A few patchy airspace opacities within the lung bases with tree-in-bud nodular opacities and partial opacification of the distal bronchi. This is consistent with a pneumonia and likely due to aspiration. No pneumoperitoneum. No pneumatosis. Superficial soft tissue thickening at the sacrum. No underlying bony destruction to suggest an osteomyelitis at this time. The unenhanced liver, spleen, adrenal glands, pancreas, and kidneys unremarkable. No hydronephrosis. No retroperitoneal lymphadenopathy. Mild calcified plaque within the normal caliber abdominal aorta. Multiple gallstones are again noted. No gallbladder wall thickening. The gallbladder is decompressed. No retroperitoneal or pelvic lymphadenopathy. No pelvic free fluid. The uterus and adnexa are unremarkable. Mild left anterior bladder wall thickening. Suboptimal evaluation for bowel pathology due to the lack of intravenous and oral contrast. However, there is no definite bowel wall thickening or obstruction. Fluid-filled large and small bowel is noted. IMPRESSION: 1. Fluid-filled nondilated loops of large and small bowel seen throughout the abdomen. This favors a diarrheal illness/gastroenteritis. 2. No evidence for a bowel obstruction. 3. Cholelithiasis. No gallbladder wall thickening. 4. A few patchy airspace opacities within the lung bases with tree-in-bud nodular opacities and partial opacification of the distal bronchi. This is consistent with a pneumonia and likely due to aspiration. 5. Mild left anterior bladder wall thickening. Recommend correlation with urinalysis. 6. Multiple old, healed fractures as described above. 7. There is sclerosis and moderate loss of height within the T12 vertebral body which favors a subacute to chronic fracture. Mild paravertebral fat stranding/edema is noted at this level. Focal central lucency at the T12 vertebral body which measures 11 mm which is likely due to the nonunited frac ture. A pathologic fracture in the setting of an underlying lesion or infection is considered less likely but not entirely excluded. ACT 112: Negative or not required by law. Electronically signed by: Gerald Cee M.D. 09/16/2022 11:[address] 09/16/22 09:39 CT OF THE HEAD WITHOUT CONTRAST CLINICAL HISTORY: Confusion. COMPARISON STUDY: Head CT October 22, 2019. CT DOSE: 871.14 mGy.cm TECHNIQUE: Helical axial images of the head were obtained without IV contrast. Automated exposure control was utilized for the study. A dose lowering techni que was utilized adhering to the principles of ALARA. FINDINGS: No acute intracranial hemorrhage, midline shift or mass effect is present. White matter hypodensity suggests small vessel disease. Ventricular system is unremarkable. The basal cisterns are patent. No extra-axial collections are present. There are no findings to suggest acute dural sinus thrombosis or acute territorial infarct. No significant calvarial abnormalities are present. Visualized portions of the sinuses and mastoid air cells are clear. IMPRESSION: No acute intracranial findings. ACT 112: Negative or not required by law. Electronically signed by: Gigi Dia M.D. 09/16/2022 11:10 AM Venous Doppler Study 09/16/22 12:48 Exam(s): US VENOUS BILATERAL LOWER EXTREMITIES EXAM: US Duplex Bilateral Lower Extremities Veins CLINICAL HISTORY: Reason for exam: Le swelling, r/o DVT. TECHNIQUE: Real-time duplex ultrasound scan of the bilateral lower extremity veins integrating B-mode two-dimensional vascular structure, Doppler spectral analysis, color flow Doppler imaging and compression. COMPARISON: None. FINDINGS: Right deep veins: Unremarkable. No DVT in the right common femoral, femoral, proximal deep femoral or popliteal veins. The veins demonstrate normal color flow, are normally compressible, with normal phasic flow and/or augmentation response. Right superficial veins: Unremarkable. No thrombus in the visualized right great saphenous vein. Left deep veins: Unremarkable. No DVT in the left common femoral, femoral, proximal deep femoral or popliteal veins. The veins demonstrate normal color flow, are normally compressible, with normal phasic flow and/or augmentation response. Left superficial veins: Unremarkable. No thrombus in the visualized left great saphenous vein. Soft tissues: No acute findings. No popliteal cyst. Other findings: Suboptimally visualized calf veins with visualized portion revealing normal flow. IMPRESSION: No ultrasonographic evidence of deep venous thrombosis involving the bilateral lower extremities. Electronically signed by: Kelsi Theodore MD 09/16/22 21:59 PM (5) Diarrhea Diarrhea type: unspecified type Qualified Code(s): R19.7 - Diarrhea, unspecified
[2022-09-20] MEDS: cefTRIAXone SODIUM 1,000 MG in DEXTROSE 5% AD-VAN 50 ML IV SCH (21:47)
[2022-09-20] MEDS ORDERED: guaiFENesin SUGAR FREE 100 MG/5 ML UDC PO PRN (22:22)
[2022-09-20] MEDS ORDERED: MICONAZOLE NITRATE POWDER 85 GM EXT PRN (22:24)
[2022-09-21] MEDS: metroNIDAZOLE 500 MG/100 ML BAG IV SCH ×2 (06:29→12:49)
[2022-09-21] MEDS: ALBUT/IPRATROP 3MG/0.5MG NEB 3 ML VIAL NEB SCH ×4 (07:01→19:33)
[2022-09-21] MEDS: SODIUM CHLOR 7% 4 ML NEB NEB SCH ×2 (07:01→19:33)
[2022-09-21 07:18] LABS: Albumin Globulin Ratio 1.3 (0.9-2); Albumin Level 2.5 gm/dl (3.4-5.0); BUN Creatinine Ratio 16.1 (10-20); Bilirubin,Total 0.3 mg/dl (0.2-1.0); Calcium 7.9 mg/dl (8.6-10.3); Creatinine Clr Calc Pharmacy 156.9 ml/min; Est GFR (African American) 142.7 ml/min; Est GFR (Non-African American) 123.1 ml/min; Globulin 1.9 gm/dl (2.5-4.0); Potassium 3.2 mmol/L (3.5-5.1); Total Protein 4.4 gm/dl (6.0-8.3)
[2022-09-21 07:25] LABS: Hemoglobin 10.7 g/dl (12.0-16.0); Mean Corpuscular Hemoglobin 33.5 pg (25.0-34.0); Mean Corpuscular Hgb Conc 36.9 g/dL (32.0-36.0); Mean Corpuscular Volume 90.9 fL (80.0-100.0); Mean Platelet Volume 9.5 fL (9.4-12.4); Platelet Count 199 K/uL (130-400); RDW Coefficient of Variation 13.3 % (11.5-14.5); RDW Standard Deviation 44.9 fL (36.4-46.3); Red Blood Count 3.19 M/uL (4.20-5.40); White Blood Count 3.57 K/ul (4.8-10.8)
[2022-09-21 07:49] LABS: Eosinophils # (auto) 0.02 K/uL (0-0.50); Eosinophils % (auto) 0.6 %; Immature Granulocytes # (auto) 0.02 K/uL (0.01-0.20); Immature Granulocytes % (auto) 0.6 %; Lymphocytes # (auto) 1.82 K/uL (1.2-3.4); Monocytes # (auto) 0.57 K/uL (0.11-0.59); Neutrophils # (auto) 1.14 K/uL (1.40-6.50); Neutrophils % (auto) 31.8 %
[2022-09-21] MEDS: guaiFENesin SUGAR FREE 200 MG/10 ML UDC PO PRN (08:14)
[2022-09-21] MEDS: PANCREAZE (LIPASE 10,500U) CAP PO SCH ×3 (08:15→16:40)
[2022-09-21] MEDS: FOLIC ACID 1 MG TAB PO SCH (08:15)
[2022-09-21] MEDS: ENOXAPARIN INJ 30 MG/0.3 ML SYR SQ SCH ×2 (08:15→08:36)
[2022-09-21] MEDS: FLUTICASONE FUROATE 100MCG 14 PUFFS/INHALER INH SCH (08:16)
[2022-09-21] MEDS: PANTOprazole 40 MG TAB PO SCH (08:16)
[2022-09-21] MEDS: HYDROCORTISONE 10 MG TAB PO SCH ×2 (08:16→14:53)
[2022-09-21] MEDS: FLUTICASONE PROPIONATE NA SPR 16 GM BTL NAE SCH (08:17)
--- NOTE | 2022-09-21 12:53 | Hospitalist Progress Note ---
Date of Service September 21, 2022 Assessment & Plan (1) Adrenal insufficiency: Plan: h/o this per records. Per records she takes hydrocortisone 20 mg every morning and 10 mg nightly. Patient received extra stress dose steroid earlier in the hospitalization. change back to hydrocortisone 20 mg a.m. and 10 mg in afternoon. (2) Acute hyponatremia: Plan: Likely related to poor oral intake, adrenal insufficiency Sodium on admission 118; Labs reviewed today; improved to 132 Continue fluid restriction of 1500 mL. Obtain BMP daily (3) Weakness: Plan: Multifactorial likely secondary to possible adrenal crisis in setting of infection. Cont with hydrocortisone use and supportive care. PT OT recommended rehab. (4) Protein calorie malnutrition: Plan: Longstanding protein calorie malnutrition that is multifactorial including poor PO intake in setting of poor PO intake and heavy alcohol use. Consult fountain server. (5) Diarrhea: (6) Gastroenteritis: Plan: CT abdomen pelvis suggest gastroenteritis. Cont to monitor electrolytes and replace as needed. cont supportive care. No symptoms of diarrhea presently. (7) Aspiration pneumonia: Plan: known substance abuse history with poor health generally puts her at risk for aspiration. A few patchy airspace opacities in the lung bases suggestive of possible pneumonia secondary to aspiration. Completed 5-day course of ceftriaxone and Flagyl. Swallow evaluation done; recommend to continue same diet. (8) Infection due to human metapneumovirus (hMPV): Plan: supportive care at this time. (9) Alcohol use: Plan: This likely contributes to poor nutrition and low sodium. Monitor closely for withdrawal. (10) Smoking: Plan: h/o this. Nicoderm patch as needed. (11) Osteoporosis: (12) Rheumatoid arthritis: Plan: Limited records available. Patient is unaware of what medications she is using. Per previous notes she is not on DMARDs (13) Frequent falls: Plan: 2/2 poor overall health and recent hip fracture. She was treated for a right displaced femoral fracture status post intramedullary nail in March 2022. She developed acute on chronic anemia secondary to blood loss. She [facility] transition [facility]. She has multiple old healed fractures in the bilateral ribs. There is loss of height within the T12 vertebral body which favors a subacute to chronic fracture. She is not reporting any acute pain. There is a focal central lucency at the T12 vertebral body which measures 11 mm likely due to the nonunited fracture however a pathologic fracture is considered less likely but not entirely excluded. As she is not reporting any back pain this should be followed up as outpatient. Severe protein calorie malnutritionIn the setting of chronic alcoholism, acute aspiration pneumonia, and acute adrenal crisis: -Weight loss noted since last hospitalization. Nutritional supplement ordered. Lovenox Full Code Dispo-PT OT eval done; recommends SNF. Case management on board. Can be disch arged when placement is available. Please note the above document was generated using voice recognition software. It may contain grammatical, syntax or spelling errors. Any formal questions or concerns about the content, text or information contained within the body of this dictation should be directly addressed to the provider for clarification Admission and Anticipated Discharge Date Admission Date: September 16, 2022 Subjective Patient seen and examined at bedside. She reports she is feeling more energetic today. She has been ambulating on the moya with help of the walker. Physical Exam Physical Exam: CONSTITUTIONAL: thin, appears malnourished, NAD EYES: normal conjunctivae, no scleral icterus ENT: external ear and nose normal, poor dentition NECK: trachea midline RESPIRATORY: clear to auscultation bilaterally, no crackles, rales or wheezes, normal respiratory effort CARDIOVASCULAR: regular rate and rhythm, S1 and 2 heard without murmurs, gal lops or rubs, no JVD, no peripheral edema CHEST: inspection of chest was normal GASTROINTESTINAL: soft, nontender, no guarding MUSCULOSKELETAL: generalized weakness, cannot sit up in bed independently, head is normocephalic and atraumatic SKIN: warm and dry NEUROLOGIC: CN 2-12 grossly intact, no sensory deficit, normal cognition, normal speech, no tremor PSYCHIATRIC: alert cooperative and answering questions appropriately. Results & Data Results & Data Vital Signs (Past 12 Hours) Vital Signs Temp Pulse Pulse Resp BP Pulse Ox O2 Del Method 09/21/22 11:27 36.5 C 86 17 105/72 97 Room Air 09/21/22 11:14 89 18 96 Room Air 09/21/22 10:59 Room Air 09/21/22 07:51 36.5 C 93 H 17 109/72 97 Room Air 09/21/22 07:46 86 09/21/22 07:02 76 18 97 Room Air 09/21/22 03:00 36.4 C L 81 18 111/69 96 Room Air Laboratory Results Laboratory Results WBC 3.57 K/ul (4.8-10.8) L 09/21/22 06: RBC 3.19 M/uL (4.20-5.40) L 09/21/22 06: Hgb 10.7 g/dl (12.0-16.0) L 09/21/22 06: Hct 29.0 % (37.0-47.0) L 09/21/22 06: MCV 90.9 fL (80.0-100.0) 09/21/22 06: MCH 33.5 pg (25.0-34.0) 09/21/22 06: MCHC 36.9 g/dL (32.0-36.0) H 09/21/22 06: RDW Std Deviation 44.9 fL (36.4-46.3) 09/21/22 06: RDW Coeff of Elo 13.3 % (11.5-14.5) 09/21/22 06: Plt Count 199 K/uL (130-400) 09/21/22 06: MPV 9.5 fL (9.4-12.4) 09/21/22 06: Immature Gran % (Auto) 0.6 % 09/21/22 06: Neut % (Auto) 31.8 % 09/21/22 06: Lymph % (Auto) 51.0 % 09/21/22 06: [place] % (Auto) 16.0 % 09/21/22 06: Eos % (Auto) 0.6 % 09/21/22 06: Baso % (Auto) 0.0 % 09/21/22 06: Neut # (Auto) 1.14 K/uL (1.40-6.50) L 09/21/22 06: Lymph # (Auto) 1.82 K/uL (1.2-3.4) 09/21/22 06: [place] # (Auto) 0.57 K/uL (0.11-0.59) 09/21/22 06: Eos # (Auto) 0.02 K/uL (0-0.50) 09/21/22 06: Baso # (Auto) 0.00 K/uL (0-0.2) 09/21/22 06:29 Immature Gran # (Auto) 0.02 K/uL (0.01-0.20) 09/21/22 06:29 PT 12.0 Seconds (9.0-12.0) 09/16/22 09:42 INR 1.1 (0.9-1.1) 09/16/22 09:42 APTT 35.4 Seconds (21.0-31.0) H 09/16/22 09:42 PTT Ratio 1.3 09/16/22 09:42 Sodium 132 mmol/L (136-145) L 09/21/22 06:29 Potassium 3.2 mmol/L (3.5-5.1) L 09/21/22 06:29 Chloride 99 mmol/L (98-107) 09/21/22 06:29 Carbon Dioxide 28 mmol/L (21-32) 09/21/22 06:29 Anion Gap 5 (3-11) 09/21/22 06:29 BUN 5 mg/dl (6-23) L 09/21/22 06:29 Creatinine 0.31 mg/dl (0.6-1.2) L 09/21/22 06:29 Est Cr Clr Drug Dosing 156.9 ml/min 09/21/22 06:29 Est GFR ( Amer) 142.7 ml/min 09/21/22 06:29 Est GFR (Non-Af Amer) 123.1 ml/min 09/21/22 06:29 BUN/Creatinine Ratio 16.1 (10-20) 09/21/22 06:29 Glucose 97 mg/dl (70-99(Fasting)) 09/21/22 06:29 Osmolality 249 mOsm/kg (280-300) L 09/16/22 12:19 Lactate 1.1 mmol/L (0.4-2.0) 09/16/22 10:20 Calcium 7.9 mg/dl (8.6-10.3) L 09/21/22 06:29 Phosphorus 1.9 mg/dl (2.5-4.9) L 09/18/22 06:50 Magnesium 1.8 mg/dl (1.7-2.4) 09/18/22 06:50 Total Bilirubin 0.3 mg/dl (0.2-1.0) 09/21/22 06:29 Direct Bilirubin 0.1 mg/dl (0-0.2) 09/16/22 09:42 AST 13 U/L (13-39) 09/21/22 06:29 ALT 12 U/L (7-52) 09/21/22 06:29 Alkaline Phosphatase 48 U/L (34-104) 09/21/22 06:29 Ammonia 34.0 umol/L (18-72) 09/17/22 07:17 Total Creatine Kinase 22 U/L (26-192) L 09/18/22 06:50 Troponin I High Sens 16.9 pg/ml (0-14) H D 09/16/22 15:47 Total Protein 4.4 gm/dl (6.0-8.3) L 09/21/22 06:29 Albumin 2.5 gm/dl (3.4-5.0) L 09/21/22 06:29 Globulin 1.9 gm/dl (2.5-4.0) L 09/21/22 06:29 Albumin/Globulin Ratio 1.3 (0.9-2) 09/21/22 06:29 Vitamin B12 129 pg/ml (180-914) L 09/16/22 12:29 Folate 20.08 ng/ml (>5.38) 09/16/22 12:29 Procalcitonin 0.07 ng/ml (0-0.5) 09/16/22 09:42 TSH 0.913 uIu/ml (0.300-4.500) 09/17/22 07:17 Urine Color Yellow 09/16/22 09:49 Urine Appearance Clear (Clear) 09/16/22 09:49 Urine pH 6.5 (4.5-7.5) 09/16/22 09:49 Ur Specific Hanna 1.006 (1.000-1.030) 09/16/22 09:49 Urine Protein Negative (Negative) 09/16/22 09:49 Urine Glucose (UA) Negative (Negative) 09/16/22 09:49 Urine Ketones 2+ (Negative) H 09/16/22 09:49 Urine Blood Negative (Negative) 09/16/22 09:49 Urine Nitrite Negative (Negative) 09/16/22 09:49 Urine Bilirubin Negative (Negative) 09/16/22 09:49 Urine Urobilinogen Negative (Negative) 09/16/22 09:49 Ur Leukocyte Esterase Negative (Negative) 09/16/22 09:49 Urine Osmolality 152 mOsm/kg (500-800) L 09/16/22 09:49 Ur Random Sodium < 10 mmol/L 09/16/22 12:10 Stl C. cayetanensis PCR Not Detected (NotDetected) 09/16/22 09:41 Stool Rotavirus A PCR Not Detected (NotDetected) 09/16/22 09:41 Stl Adenov F PCR Not Detected (NotDetected) 09/16/22 09:41 Stool Astrovirus (PCR) Not Detected (NotDetected) 09/16/22 09:41 Stool Campylobacter PCR Not Detected (NotDetected) 09/16/22 09:41 Stl C. diff Tox B Gene Negative Cdiff Gene (Neg) 09/16/22 09:41 Stool Cryptosporidium PCR Not Detected (NotDetected) 09/16/22 09:41 Stl E.coli Shiga Tox PCR Not Detected (NotDetected) 09/16/22 09:41 Stl Enterotoxigenic E PCR Not Detected (NotDetected) 09/16/22 09:41 Stool EPEC (PCR) Not Detected (NotDetected) 09/16/22 09:41 Stool EAEC (PCR) Not Detected (NotDetected) 09/16/22 09:41 Stl E. histolytica PCR Not Detected (NotDetected) 09/16/22 09:41 Stool Giardia Lamblia PCR Not Detected (NotDetected) 09/16/22 09:41 Stool Salmonella PCR Not Detected (NotDetected) 09/16/22 09:41 Stool Sapovirus (PCR) Not Detected (NotDetected) 09/16/22 09:41 Stl P. shigelloides PCR Not Detected (NotDetected) 09/16/22 09:41 Stl Shigella/EIEC PCR Not Detected (NotDetected) 09/16/22 09:41 St Y.enterocolitica PCR Not Detected (NotDetected) 09/16/22 09:41 Stool Vibrio (PCR) Not Detected (NotDetected) 09/16/22 09:41 Stl Vibrio cholerae PCR Not Detected (NotDetected) 09/16/22 09:41 Stl Norovirus GI/GII PCR Not Detected (NotDetected) 09/16/22 09:41 Urine Opiates Screen Neg (Neg) 09/18/22 15:40 Ur Methadone, Qual Neg (Neg) 09/18/22 15:40 Urine Barbiturates Neg (Neg) 09/18/22 15:40 Ur Phencyclidine (PCP) Neg (Neg) 09/18/22 15:40 U Amphetamin/Meth Scrn Neg (Neg) 09/18/22 15:40 MDMA (Ecstasy) Screen Neg (Neg) 09/18/22 15:40 U Benzodiazepines Scrn Neg (Neg) 09/18/22 15:40 Ur Cocaine Metabolite Neg (Neg) 09/18/22 15:40 U Marijuana (THC) Screen Neg (Neg) 09/18/22 15:40 Ethyl Alcohol mg/dL < 10.0 mg/dl (<10.0) 09/16/22 09:42 Adenovirus (PCR) Not Detected (NotDetected) 09/16/22 09:41 B. pertussis DNA (PCR) Not Detected (NotDetected) 09/16/22 09:41 B.parapertussis DNA PCR Not Detected (NotDetected) 09/16/22 09:41 C. pneumoniae DNA (PCR) Not Detected (NotDetected) 09/16/22 09:41 Coronavirus OC43 (PCR) Not Detected (NotDetected) 09/16/22 09:41 Coronavirus HKU1 (PCR) Not Detected (NotDetected) 09/16/22 09:41 Coronavirus 229E (PCR) Not Detected (NotDetected) 09/16/22 09:41 SARS-CoV-2 (PCR) Not Detected (NotDetected) 09/16/22 09:41 Coronavirus NL63 (PCR) Not Detected (NotDetected) 09/16/22 09:41 Human Metapneumovir PCR DETECTED (NotDetected) A* 09/16/22 09:41 Influenza Type A (PCR) Not Detected (NotDetected) 09/16/22 09:41 Influenza Type B (PCR) Not Detected (NotDetected) 09/16/22 09:41 M. pneumoniae (PCR) Not Detected (NotDetected) 09/16/22 09:41 Parainfluenza 1 (PCR) Not Detected (NotDetected) 09/16/22 09:41 Parainfluenza 2 (PCR) Not Detected (NotDetected) 09/16/22 09:41 Parainfluenza 3 (PCR) Not Detected (NotDetected) 09/16/22 09:41 Parainfluenza 4 (PCR) Not Detected (NotDetected) 09/16/22 09:41 RSV (PCR) Not Detected (NotDetected) 09/16/22 09:41 Entero/Rhino (PCR) Not Detected (NotDetected) 09/16/22 09:41 Impressions Chest X-Ray 09/16/22 09:33 XR chest 1V portable CLINICAL HISTORY: Sepsis. COMPARISON STUDY: Chest CT October 22, 2019. Chest radiograph April 07, 2022. FINDINGS: Old, healed proximal right humeral fracture is noted. There are multiple old, healed bilateral rib fractures. Bilateral clavicular and left humeral internal fixations are incidentally noted. No pneumothorax or pleural effusion. There is no consolidation to suggest pneumonia. No evidence for pulmonary edema. Cardiomediastinal silhouette is stable. IMPRESSION: No acute cardiopulmonary findings. No significant change in appearance of the chest. ACT 112: Negative or not required by law. Electronically signed by: Gigi Dia M.D. 09/16/2022 10:37 AM Abdomen/Pelvis CT 09/16/22 09:[address] WITHOUT CONTRAST CT DOSE: HISTORY: diarrhea, poss colitis TECHNIQUE: Multiaxial CT images of the abdomen and pelvis were performed without contrast. A dose lowering technique was utilized adhering to the principles of ALARA. COMPARISON STUDY: Abdomen and pelvis CT 10/23/2021. FINDINGS: There is sclerosis and moderate loss of height within the T12 vertebral body which favors a subacute to chronic fracture. Mild paravertebral fat stranding/edema at this level. This demonstrates up to 3 mm of retropulsion and mild central canal narrowing at this level. Focal central lucency at the T12 vertebral body which measures 11 mm which is likely due to the nonunited fracture. A pathologic fracture in the setting of underlying lesion or infection is considered less likely but not entirely excluded. Internal fixation of an old, healed right pelvic fracture is noted. There are old, healed bilateral pubic ring fractures identified. Old, healed sacral fracture is noted. Old transverse process fractures within the left side of the lumbar spine. Old bilateral rib fractures are noted. No definite acute fractures identified. Levoscoliosis of the lumbar spine. A few patchy airspace opacities within the lung bases with tree-in-bud nodular opacities and partial opacification of the distal bronchi. This is consistent with a pneumonia and likely due to aspiration. No pneumoperitoneum. No pneumatosis. Superficial soft tissue thickening at the sacrum. No underlying bony destruction to suggest an osteomyelitis at this time. The unenhanced liver, spleen, adrenal glands, pancreas, and kidneys unremarkable. No hydronephrosis. No retroperitoneal lymphadenopathy. Mild calcified plaque within the normal caliber abdominal aorta. Multiple gallstones are again noted. No gallbladder wall thickening. The gallbladder is decompressed. No retroperitoneal or pelvic lymphadenopathy. No pelvic free fluid. The uterus and adnexa are unremarkable. Mild left anterior bladder wall thickening. Suboptimal evaluation for bowel pathology due to the lack of intravenous and oral contrast. However, there is no definite bowel wall thickening or obstruction. Fluid-filled large and small bowel is noted. IMPRESSION: 1. Fluid-filled nondilated loops of large and small bowel seen throughout the abdomen. This favors a diarrheal illness/gastroenteritis. 2. No evidence for a bowel obstruction. 3. Cholelithiasis. No gallbladder wall thickening. 4. A few patchy airspace opacities within the lung bases with tree-in-bud nodular opacities and partial opacification of the distal bronchi. This is consistent with a pneumonia and likely due to aspiration. 5. Mild left anterior bladder wall thickening. Recommend correlation with urinalysis. 6. Multiple old, healed fractures as described above. 7. There is sclerosis and moderate loss of height within the T12 vertebral body which favors a subacute to chronic fracture. Mild paravertebral fat stranding/edema is noted at this level. Focal central lucency at the T12 vertebral body which measures 11 mm which is likely due to the nonunited fracture. A pathologic fracture in the setting of an underlying lesion or infection is considered less likely but not entirely excluded. ACT 112: Negative or not required by law. Electronically signed by: Gerald Cee M.D. 09/16/2022 11:[address] 09/16/22 09:39 CT OF THE HEAD WITHOUT CONTRAST CLINICAL HISTORY: Confusion. COMPARISON STUDY: Head CT October 22, 2019. CT DOSE: 871.14 mGy.cm TECHNIQUE: Helical axial images of the head were obtained without IV contrast. Automated exposure control was utilized for the study. A dose lowering technique was utilized adhering to the principles of ALARA. FINDINGS: No acute intracranial hemorrhage, midline shift or mass effect is present. White matter hypodensity suggests small vessel disease. Ventricular system is unremarkable. The basal cisterns are patent. No extra-axial collections are present. There are no findings to suggest acute dural sinus thrombosis or acute territorial infarct. No significant calvarial abnormalities are present. Visualized portions of the sinuses and mastoid air cells are clear. IMPRESSION: No acute intracranial findings. ACT 112: Negative or not required by law. Electronically signed by: Gigi Dia M.D. 09/16/2022 11:10 AM Venous Doppler Study 09/16/22 12:48 Exam(s): US VENOUS BILATERAL LOWER EXTREMITIES EXAM: US Duplex Bilateral Lower Extremities Veins CLINICAL HISTORY: Reason for exam: Le swelling, r/o DVT. TECHNIQUE: Real-time duplex ultrasound scan of the bilateral lower extremity veins integrating B-mode two-dimensional vascular structure, Doppler spectral analysis, color flow Doppler imaging and compression. COMPARISON: None. FINDINGS: Right deep veins: Unremarkable. No DVT in the right common femoral, femoral, proximal deep femoral or popliteal veins. The veins demonstrate normal color flow, are normally compressible, with normal phasic flow and/or augmentation response. Right superficial veins: Unremarkable. No thrombus in the visualized right great saphenous vein. Left deep veins: Unremarkable. No DVT in the left common femoral, femoral, proximal deep femoral or popliteal veins. The veins demonstrate normal color flow, are normally compressible, with normal phasic flow and/or augmentation response. Left superficial veins: Unremarkable. No thrombus in the visualized left great saphenous vein. Soft tissues: No acute findings. No popliteal cyst. Other findings: Suboptimally visualized calf veins with visualized portion revealing normal flow. IMPRESSION: No ultrasonographic evidence of deep venous thrombosis involving the bilateral lower extremities. Electronically signed by: Kelsi Theodore MD 09/16/22 21:59 PM (5) Diarrhea Diarrhea type: unspecified type Qualified Code(s): R19.7 - Diarrhea, unspecified
[2022-09-22] MEDS: SODIUM CHLOR 7% 4 ML NEB NEB SCH ×2 (06:56→19:11)
[2022-09-22] MEDS: ALBUT/IPRATROP 3MG/0.5MG NEB 3 ML VIAL NEB SCH ×4 (06:56→19:11)
[2022-09-22 07:42] LABS: BUN Creatinine Ratio 19.4 (10-20); Calcium 7.6 mg/dl (8.6-10.3); Creatinine Clr Calc Pharmacy 160.2 ml/min; Est GFR (African American) 142.7 ml/min; Est GFR (Non-African American) 123.1 ml/min; Magnesium 1.2 mg/dl (1.7-2.4); Potassium 3.4 mmol/L (3.5-5.1)
[2022-09-22] MEDS: PANCREAZE (LIPASE 10,500U) CAP PO SCH ×3 (08:43→16:18)
[2022-09-22] MEDS: HYDROCORTISONE 10 MG TAB PO SCH ×2 (08:44→14:24)
[2022-09-22] MEDS: PANTOprazole 40 MG TAB PO SCH (08:45)
[2022-09-22] MEDS: FLUTICASONE PROPIONATE NA SPR 16 GM BTL NAE SCH (08:45)
[2022-09-22] MEDS: ENOXAPARIN INJ 30 MG/0.3 ML SYR SQ SCH (08:45)
[2022-09-22] MEDS: FLUTICASONE FUROATE 100MCG 14 PUFFS/INHALER INH SCH (08:45)
[2022-09-22] MEDS: FOLIC ACID 1 MG TAB PO SCH (08:45)
--- NOTE | 2022-09-22 11:47 | Hospitalist Progress Note ---
Date of Service September 22, 2022 Assessment & Plan (1) Adrenal insufficiency: Plan: h/o this per records. Per records she takes hydrocortisone 20 mg every morning and 10 mg nightly. Patient received extra stress dose steroid earlier in the hospitalization. change back to hydrocortisone 20 mg a.m. and 10 mg in afternoon. Patient will need to follow-up with PCP and obtain referral for endocrinology for outpatient work-up for adrenal insufficiency. (2) Acute hyponatremia: Plan: Likely related to poor oral intake, adrenal insufficiency Sodium on admission 118; Labs reviewed today; improved to 132 Continue fluid restriction of 1500 mL. Obtain BMP daily (3) Weakness: Plan: Multifactorial likely secondary to possible adrenal crisis in setting of infection. Cont with hydrocortisone use and supportive care. PT OT recommended rehab awaiting placement. (4) Protein calorie malnutrition: Plan: Longstanding protein calorie malnutrition that is multifactorial including poor PO intake in setting of poor PO intake and heavy alcohol use. Consult rommel robison. (5) Diarrhea: (6) Gastroenteritis: Plan: CT abdomen pelvis suggest gastroenteritis. Cont to monitor electrolytes and replace as needed. cont supportive care. No symptoms of diarrhea presently. (7) Aspiration pneumonia: Plan: known substance abuse history with poor health generally puts her at risk for aspiration. A few patchy airspace opacities in the lung bases suggestive of possible pneumonia secondary to aspiration. Completed 5-day course of ceftriaxone and Flagyl. Swallow evaluation done; recommend to continue same diet. (8) Infection due to human metapneumovirus (hMPV): Plan: supportive care at this time. (9) Alcohol use: Plan: This likely contributes to poor nutrition and low sodium. Monitor closely for withdrawal. (10) Smoking: Plan: h/o this. Nicoderm patch as needed. (11) Osteoporosis: (12) Rheumatoid arthritis: Plan: Limited records available. Patient is unaware of what medications she is using. Per previous notes she is not on DMARDs (13) NSVT (nonsustained ventricular tachycardia): Plan: During the hospitalization, patient had 2 episode of NSVT of 7 beats and 5 beats on 09/20 and 09/21. Patient denies any symptoms. Echocardiogram done on 09/17 shows normal LV systolic function. EF of 55 to 60%. Repleted magnesium and potassium. (14) Frequent falls: Plan: 2/2 poor overall health and recent hip fracture. She was treated for a right displaced femoral fracture status post intramedullary nail in March 2022. She developed acute on chronic anemia secondary to blood loss. She was transition to [facility] for rehab. She has multiple old healed fractures in the bilateral ribs. There is loss of height within the T12 vertebral body which favors a subacute to chronic fracture. She is not reporting any acute pain. There is a focal central lucency at the T12 vertebral body which measures 11 mm likely due to the nonunited fracture however a pathologic fracture is considered less likely but not entirely excluded. As she is not reporting any back pain this should be followed up as outpatient. Severe protein calorie malnutritionIn the setting of chronic alcoholism, acute aspiration pneumonia, and acute adrenal crisis: -Weight loss noted since last hospitalization. Nutritional supplement ordered. Lovenox Full Code Dispo-PT OT eval done; recommends SNF. Case management on board. Can be discharged when placement is available. Please note the above document was generated using voice recognition software. It may contain grammatical, syntax or spelling errors. Any formal questions or concerns about the content, text or information contained within the body of this dictation should be directly addressed to the provider for clarification Admission and Anticipated Discharge Date Admission Date: September 16, 2022 Subjective Patient seen and examined at bedside. She is sitting up on a chair at the side of the bed eating breakfast. She reports that she is feeling much better. Reports that she has been walking around the hallway. She also reports that breathing treatment has been helping her. Review of Systems Review of Systems: All systems reviewed & are unremarkable except as noted in Subjective Physical Exam Physical Exam: CONSTITUTIONAL: thin, appears malnourished, NAD EYES: normal conjunctivae, no scleral icterus ENT: external ear and nose normal, poor dentition NECK: trachea midline RESPIRATORY: clear to auscultation bilaterally, no crackles, rales or wheezes, normal respiratory effort CARDIOVASCULAR: regular rate and rhythm, S1 and 2 heard without murmurs, gallops or rubs, no JVD, no peripheral edema CHEST: inspection of chest was normal GASTROINTESTINAL: soft, nontender, no guarding MUSCULOSKELETAL: generalized weakness, cannot sit up in bed independently, head is normocephalic and atraumatic SKIN: warm and dry NEUROLOGIC: CN 2-12 grossly intact, no sensory deficit, normal cognition, normal speech, no tremor PSYCHIATRIC: alert cooperative and answering questions appropriately. Results & Data Results & Data Vital Signs (Past 12 Hours) Vital Signs Temp Pulse Pulse Resp BP Pulse Ox O2 Del Method 09/22/22 11:04 84 18 95 Room Air 09/22/22 08:45 Room Air 09/22/22 07:15 74 09/22/22 08:05 36.4 C L 86 17 116/75 92 Room Air 09/22/22 06:59 83 18 94 Room Air 09/22/22 04:00 36.5 C 78 18 124/82 93 Room Air Laboratory Results Laboratory Results WBC 3.57 K/ul (4.8-10.8) L 09/21/22 06:29 RBC 3.19 M/uL (4.20-5.40) L 09/21/22 06:29 Hgb 10.7 g/dl (12.0-16.0) L 09/21/22 06:29 Hct 29.0 % (37.0-47.0) L 09/21/22 06:29 MCV 90.9 fL (80.0-100.0) 09/21/22 06:29 MCH 33.5 pg (25.0-34.0) 09/21/22 06: MCHC 36.9 g/dL (32.0-36.0) H 09/21/22 06:29 RDW Std Deviation 44.9 fL (36.4-46.3) 09/21/22 06:29 RDW Coeff of Elo 13.3 % (11.5-14.5) 09/21/22 06:29 Plt Count 199 K/uL (130-400) 09/21/22 06:29 MPV 9.5 fL (9.4-12.4) 09/21/22 06:29 Immature Gran % (Auto) 0.6 % 09/21/22 06:29 Neut % (Auto) 31.8 % 09/21/22 06: Lymph % (Auto) 51.0 % 09/21/22 06: [place] % (Auto) 16.0 % 09/21/22 06:29 Eos % (Auto) 0.6 % 09/21/22 06:29 Baso % (Auto) 0.0 % 09/21/22 06:29 Neut # (Auto) 1.14 K/uL (1.40-6.50) L 09/21/22 06:29 Lymph # (Auto) 1.82 K/uL (1.2-3.4) 09/21/22 06:29 Kingman # (Auto) 0.57 K/uL (0.11-0.59) 09/21/22 06:29 Eos # (Auto) 0.02 K/uL (0-0.50) 09/21/22 06:29 Baso # (Auto) 0.00 K/uL (0-0.2) 09/21/22 06:29 Immature Gran # (Auto) 0.02 K/uL (0.01-0.20) 09/21/22 06:29 PT 12.0 Seconds (9.0-12.0) 09/16/22 09:42 INR 1.1 (0.9-1.1) 09/16/22 09:42 APTT 35.4 Seconds (21.0-31.0) H 09/16/22 09:42 PTT Ratio 1.3 09/16/22 09:42 Sodium 132 mmol/L (136-145) L 09/22/22 06:49 Potassium 3.4 mmol/L (3.5-5.1) L 09/22/22 06:49 Chloride 99 mmol/L (98-107) 09/22/22 06:49 Carbon Dioxide 28 mmol/L (21-32) 09/22/22 06:49 Anion Gap 5 (3-11) 09/22/22 06:49 BUN 6 mg/dl (6-23) 09/22/22 06:49 Creatinine 0.31 mg/dl (0.6-1.2) L 09/22/22 06:49 Est Cr Clr Drug Dosing 160.2 ml/min 09/22/22 06:49 Est GFR ( Amer) 142.7 ml/min 09/22/22 06:49 Est GFR (Non-Af Amer) 123.1 ml/min 09/22/22 06:49 BUN/Creatinine Ratio 19.4 (10-20) 09/22/22 06:49 Glucose 97 mg/dl (70-99(Fasting)) 09/22/22 06:49 Osmolality 249 mOsm/kg (280-300) L 09/16/22 12:19 Lactate 1.1 mmol/L (0.4-2.0) 09/16/22 10:20 Calcium 7.6 mg/dl (8.6-10.3) L 09/22/22 06:49 Phosphorus 1.9 mg/dl (2.5-4.9) L 09/18/22 06:50 Magnesium 1.2 mg/dl (1.7-2.4) L 09/22/22 06:49 Total Bilirubin 0.3 mg/dl (0.2-1.0) 09/21/22 06:29 Direct Bilirubin 0.1 mg/dl (0-0.2) 09/16/22 09:42 AST 13 U/L (13-39) 09/21/22 06:29 ALT 12 U/L (7-52) 09/21/22 06:29 Alkaline Phosphatase 48 U/L (34-104) 09/21/22 06:29 Ammonia 34.0 umol/L (18-72) 09/17/22 07:17 Total Creatine Kinase 22 U/L (26-192) L 09/18/22 06:50 Troponin I High Sens 16.9 pg/ml (0-14) H D 09/16/22 15:47 Total Protein 4.4 gm/dl (6.0-8.3) L 09/21/22 06:29 Albumin 2.5 gm/dl (3.4-5.0) L 09/21/22 06:29 Globulin 1.9 gm/dl (2.5-4.0) L 09/21/22 06:29 Albumin/Globulin Ratio 1.3 (0.9-2) 09/21/22 06:29 Vitamin B1 <6 nmol/L (8-30) L 09/16/22 12:19 Vitamin B12 129 pg/ml (180-914) L 09/16/22 12:29 Folate 20.08 ng/ml (>5.38) 09/16/22 12:29 Procalcitonin 0.07 ng/ml (0-0.5) 09/16/22 09:42 TSH 0.913 uIu/ml (0.300-4.500) 09/17/22 07:17 Urine Color Yellow 09/16/22 09:49 Urine Appearance Clear (Clear) 09/16/22 09:49 Urine pH 6.5 (4.5-7.5) 09/16/22 09:49 Ur Specific Seguin 1.006 (1.000-1.030) 09/16/22 09:49 Urine Protein Negative (Negative) 09/16/22 09:49 Urine Glucose (UA) Negative (Negative) 09/16/22 09:49 Urine Ketones 2+ (Negative) H 09/16/22 09:49 Urine Blood Negative (Negative) 09/16/22 09:49 Urine Nitrite Negative (Negative) 09/16/22 09:49 Urine Bilirubin Negative (Negative) 09/16/22 09:49 Urine Urobilinogen Negative (Negative) 09/16/22 09:49 Ur Leukocyte Esterase Negative (Negative) 09/16/22 09:49 Urine Osmolality 152 mOsm/kg (500-800) L 09/16/22 09:49 Ur Random Sodium < 10 mmol/L 09/16/22 12:10 Stl C. cayetanensis PCR Not Detected (NotDetected) 09/16/22 09:41 Stool Rotavirus A PCR Not Detected (NotDetected) 09/16/22 09:41 Stl Adenov F 4041 PCR Not Detected (NotDetected) 09/16/22 09:41 Stool Astrovirus (PCR) Not Detected (NotDetected) 09/16/22 09:41 Stool Campylobacter PCR Not Detected (NotDetected) 09/16/22 09:41 Stl C. diff Tox B Gene Negative Cdiff Gene (Neg) 09/16/22 09:41 Stool Cryptosporidium PCR Not Detected (NotDetected) 09/16/22 09:41 Stl E.coli Shiga Tox PCR Not Detected (NotDetected) 09/16/22 09:41 Stl Enterotoxigenic E PCR Not Detected (NotDetected) 09/16/22 09:41 Stool EPEC (PCR) Not Detected (NotDetected) 09/16/22 09:41 Stool EAEC (PCR) Not Detected (NotDetected) 09/16/22 09:41 Stl E. histolytica PCR Not Detected (NotDetected) 09/16/22 09:41 Stool Giardia Lamblia PCR Not Detected (NotDetected) 09/16/22 09:41 Stool Salmonella PCR Not Detected (NotDetected) 09/16/22 09:41 Stool Sapovirus (PCR) Not Detected (NotDetected) 09/16/22 09:41 Stl P. shigelloides PCR Not Detected (NotDetected) 09/16/22 09:41 Stl Shigella/EIEC PCR Not Detected (NotDetected) 09/16/22 09:41 St Y.enterocolitica PCR Not Detected (NotDetected) 09/16/22 09:41 Stool Vibrio (PCR) Not Detected (NotDetected) 09/16/22 09:41 Stl Vibrio cholerae PCR Not Detected (NotDetected) 09/16/22 09:41 Stl Norovirus GI/GII PCR Not Detected (NotDetected) 09/16/22 09:41 Urine Opiates Screen Neg (Neg) 09/18/22 15:40 Ur Methadone, Qual Neg (Neg) 09/18/22 15:40 Urine Barbiturates Neg (Neg) 09/18/22 15:40 Ur Phencyclidine (PCP) Neg (Neg) 09/18/22 15:40 U Amphetamin/Meth Scrn Neg (Neg) 09/18/22 15:40 MDMA (Ecstasy) Screen Neg (Neg) 09/18/22 15:40 U Benzodiazepines Scrn Neg (Neg) 09/18/22 15:40 Ur Cocaine Metabolite Neg (Neg) 09/18/22 15:40 U Marijuana (THC) Screen Neg (Neg) 09/18/22 15:40 Ethyl Alcohol mg/dL < 10.0 mg/dl (<10.0) 09/16/22 09:42 Adenovirus (PCR) Not Detected (NotDetected) 09/16/22 09:41 B. pertussis DNA (PCR) Not Detected (NotDetected) 09/16/22 09:41 B.parapertussis DNA PCR Not Detected (NotDetected) 09/16/22 09:41 C. pneumoniae DNA (PCR) Not Detected (NotDetected) 09/16/22 09:41 Coronavirus OC43 (PCR) Not Detected (NotDetected) 09/16/22 09:41 Coronavirus HKU1 (PCR) Not Detected (NotDetected) 09/16/22 09:41 Coronavirus 229E (PCR) Not Detected (NotDetected) 09/16/22 09:41 SARS-CoV-2 (PCR) Not Detected (NotDetected) 09/16/22 09:41 Coronavirus NL63 (PCR) Not Detected (NotDetected) 09/16/22 09:41 Human Metapneumovir PCR DETECTED (NotDetected) A* 09/16/22 09:41 Influenza Type A (PCR) Not Detected (NotDetected) 09/16/22 09:41 Influenza Type B (PCR) Not Detected (NotDetected) 09/16/22 09:41 M. pneumoniae (PCR) Not Detected (NotDetected) 09/16/22 09:41 Parainfluenza 1 (PCR) Not Detected (NotDetected) 09/16/22 09:41 Parainfluenza 2 (PCR) Not Detected (NotDetected) 09/16/22 09:41 Parainfluenza 3 (PCR) Not Detected (NotDetected) 09/16/22 09:41 Parainfluenza 4 (PCR) Not Detected (NotDetected) 09/16/22 09:41 RSV (PCR) Not Detected (NotDetected) 09/16/22 09:41 Entero/Rhino (PCR) Not Detected (NotDetected) 09/16/22 09:41 Impressions Chest X-Ray 09/16/22 09:33 XR chest 1V portable CLINICAL HISTORY: Sepsis. COMPARISON STUDY: Chest CT October 22, 2019. Chest radiograph April 07, 2022. FINDINGS: Old, healed proximal right humeral fracture is noted. There are multiple old, healed bilateral rib fractures. Bilateral clavicular and left humeral internal fixations are incidentally noted. No pneumothorax or pleural effusion. There is no consolidation to suggest pneumonia. No evidence for pulmonary edema. Cardiomediastinal silhouette is stable. IMPRESSION: No acute cardiopulmonary findings. No significant change in appearance of the chest. ACT 112: Negative or not required by law. Electronically signed by: Gigi Dia M.D. 09/16/2022 10:37 AM Abdomen/Pelvis CT 09/16/22 09:[address] WITHOUT CONTRAST CT DOSE: HISTORY: diarrhea, poss colitis TECHNIQUE: Multiaxial CT images of the abdomen and pelvis were performed without contrast. A dose lowering technique was utilized adhering to the principles of ALARA. COMPARISON STUDY: Abdomen and pelvis CT 10/23/2021. FINDINGS: There is sclerosis and moderate loss of height within the T12 vertebral body which favors a subacute to chronic fracture. Mild paravertebral fat stranding/edema at this level. This demonstrates up to 3 mm of retropulsion and mild central canal narrowing at this level. Focal central lucency at the T12 vertebral body which measures 11 mm which is likely due to the nonunited fracture. A pathologic fracture in the setting of underlying lesion or infection is considered less likely but not entirely excluded. Internal fixation of an old, healed right pelvic fracture is noted. There are old, healed bilateral pubic ring fractures identified. Old, healed sacral fracture is noted. Old transverse process fractures within the left side of the lumbar spine. Old bilateral rib fractures are noted. No definite acute fractures identified. Levoscoliosis of the lumbar spine. A few patchy airspace opacities within the lung bases with tree-in-bud nodular opacities and partial opacification of the distal bronchi. This is consistent with a pneumonia and likely due to aspiration. No pneumoperitoneum. No pneumatosis. Superficial soft tissue thickening at the sacrum. No underlying bony destruction to suggest an osteomyelitis at this time. The unenhanced liver, spleen, adrenal glands, pancreas, and kidneys unremarkable. No hydronephrosis. No retroperitoneal lymphadenopathy. Mild calcified plaque within the normal caliber abdominal aorta. Multiple gallstones are again noted. No gallbladder wall thickening. The gallbladder is decompressed. No retroperitoneal or pelvic lymphadenopathy. No pelvic free fluid. The uterus and adnexa are unremarkable. Mild left anterior bladder wall thickening. Suboptimal evaluation for bowel pathology due to the lack of intravenous and oral contrast. However, there is no definite bowel wall thickening or obstruction. Fluid-filled large and small bowel is noted. IMPRESSION: 1. Fluid-filled nondilated loops of large and small bowel seen throughout the abdomen. This favors a diarrheal illness/gastroenteritis. 2. No evidence for a bowel obstruction. 3. Cholelithiasis. No gallbladder wall thickening. 4. A few patchy airspace opacities within the lung bases with tree-in-bud nodular opacities and partial opacification of the distal bronchi. This is consistent with a pneumonia and likely due to aspiration. 5. Mild left anterior bladder wall thickening. Recommend correlation with urinalysis. 6. Multiple old, healed fractures as described above. 7. There is sclerosis and moderate loss of height within the T12 vertebral body which favors a subacute to chronic fracture. Mild paravertebral fat s tranding/edema is noted at this level. Focal central lucency at the T12 vertebral body which measures 11 mm which is likely due to the nonunited fracture. A pathologic fracture in the setting of an underlying lesion or infection is considered less likely but not entirely excluded. ACT 112: Negative or not required by law. Electronically signed by: Gerald Cee M.D. 09/16/2022 11:[address] 09/16/22 09:39 CT OF THE HEAD WITHOUT CONTRAST CLINICAL HISTORY: Confusion. COMPARISON STUDY: Head CT October 22, 2019. CT DOSE: 871.14 mGy.cm TECHNIQUE: Helical axial images of the head were obtained without IV contrast. Automated exposure control was utilized for the study. A dose lowering technique was utilized adhering to the principles of ALARA. FINDINGS: No acute intracranial hemorrhage, midline shift or mass effect is present. White matter hypodensity suggests small vessel disease. Ventricular system is unremarkable. The basal cisterns are patent. No extra-axial collections are present. There are no findings to suggest acute dural sinus thrombosis or acute territorial infarct. No significant calvarial abnormalities are present. Visualized portions of the sinuses and mastoid air cells are clear. IMPRESSION: No acute intracranial findings. ACT 112: Negative or not required by law. Electronically signed by: Gigi Dia M.D. 09/16/2022 11:10 AM Venous Doppler Study 09/16/22 12:48 Exam(s): US VENOUS BILATERAL LOWER EXTREMITIES EXAM: US Duplex Bilateral Lower Extremities Veins CLINICAL HISTORY: Reason for exam: Le swelling, r/o DVT. TECHNIQUE: Real-time duplex ultrasound scan of the bilateral lower extremity veins integrating B-mode two-dimensional vascular structure, Doppler spectral analysis, color flow Doppler imaging and compression. COMPARISON: None. FINDINGS: Right deep veins: Unremarkable. No DVT in the right common femoral, femoral, proximal deep femoral or popliteal veins. The veins demonstrate normal color flow, are normally compressible, with normal phasic flow and/or augmentation response. Right superficial veins: Unremarkable. No thrombus in the visualized right great saphenous vein. Left deep veins: Unremarkable. No DVT in the left common femoral, femoral, proximal deep femoral or popliteal veins. The veins demonstrate normal color flow, are normally compressible, with normal phasic flow and/or augmentation response. Left superficial veins: Unremarkable. No thrombus in the visualized left great saphenous vein. Soft tissues: No acute findings. No popliteal cyst. Other findings: Suboptimally visualized calf veins with visualized portion revealing normal flow. IMPRESSION: No ultrasonographic evidence of deep venous thrombosis involving the bilateral lower extremities. Electronically signed by: Kelsi Theodore MD 09/16/22 21:59 PM (5) Diarrhea Diarrhea type: unspecified type Qualified Code(s): R19.7 - Diarrhea, unspecified
[2022-09-22] MEDS: MAGNESIUM SULFATE / D5W 1 GM/100 ML BAG IV SCH ×4 (12:28→18:15)
[2022-09-22] MEDS: POTASSIUM CHLORIDE PWD 20 MEQ PACK PO SCH ×2 (13:14→20:23)
[2022-09-22] MEDS: guaiFENesin SUGAR FREE 200 MG/10 ML UDC PO PRN (20:23)
[2022-09-23 08:37] LABS: BUN Creatinine Ratio 12.8 (10-20); Creatinine Clr Calc Pharmacy 128.4 ml/min; Est GFR (African American) 132.3 ml/min; Est GFR (Non-African American) 114.2 ml/min; Magnesium 1.8 mg/dl (1.7-2.4); Potassium 3.7 mmol/L (3.5-5.1)
--- NOTE | 2022-09-23 08:43 | Cardiology Consultation ---
Date of Consultation September 23, 2022 Assessment & Plan (1) Wide-complex tachycardia: (2) Acute hyponatremia: (3) Hypomagnesemia: Plan Patient admitted for adrenal insufficiency, hyponatremia, with electrolyte disturbances in setting of chronic alcohol abuse and malnutrition. During admission she had several runs of wide complex tachycardia, suggestive of Non sustained VT. No symptoms. Her potassium has been low and recommend repleting until K is at least 4.0 Supplement magnesium until > 2.0. Agree with starting low dose metoprolol succinate 25 mg daily. Monitor BP. Echo earlier this admission with preserved LVEF. No significant valvular disease. She currently has no acute cardiac complaints. case discussed with Dr. Nicolas. Will monitor. Supervising Physician Co-Signing Physician Notes Supervising Physician Attestation: I have personally performed a history and physical examination on the patient. I agree with the physician dental hygiene administrative assistant's findings and plan as documented with the following additions. Subjective: Patient without acute complaint. Denies chest discomfort, or palpitations. Exam: General: No acute distress, appears older than her stated age of [age] years old Pulmonary: Mildly decreased breath sounds the bases otherwise clear to auscultation bilaterally Cardiovascular: Regular rhythm, no murmurs, no edema Data: EKG performed today 09/23/2022 at 9:57 AM and interpreted independently: Normal sinus rhythm at 79 bpm, and age-indeterminate anterior infarct cannot be excluded with poor R wave progression in the precordial leads. -Compared to the previous tracing performed 09/16/2022, there has been interval development of T wave inversions in the precordial leads V2 to V6 as well as the high lateral leads I and aVL and lead II. -Ischemic heart disease is certainly a consideration. Assessment and Plan: Brief episodes of wide-complex tachycardia with rates as high as 170 bpm, seemingly ventricular in etiology, with no associated symptoms Abnormal EKG Normal echocardiogram performed earlier this admission with normal left ventricular myocardial thickness, normal LVEF in the range of 55 to 60% no valvular heart disease. -Patient denies symptoms suggestive of angina. Denies subjective palpitations, syncope or near syncope. -Continue electrolyte replacement, metoprolol succinate 25 mg daily added. DVT prophylaxis: Patient is on Lovenox 30 mg subcutaneous every morning Markel Nicolas, History of Present Illness Reason for Consultation: Non sustained VT; electrolyte imbalances Requesting Physician: Dr. Anthony Attending Physician: Dr. Nicolas History of Present Illness Patient is a 61 year old female with complex history includin. Adrenal insufficiency with chronic hyponatremia 2. alcohol abuse 3. Tobacco abuse 4. COPD 5. malnutrition 6. hypothyroidism. Patient is a poor historian. Does not recall why she was admitted to the hospital. She has been here 1 week with adrenal insufficiency, probably as piration pneumonia, significant elecrolyte disturbances, weakness. She denies cardiac history of CAD, NV, CHF, arrhythmia. No prior cardiac evaluation. During this admission, she had several non sustained runs of wide complex tachycardia. no symptoms reported. Episodes lasting 5-15 beats. Most recent episode was at 3:50 AM on 09/23. Yesterday patient's magnesium and potassium were low. Hospitalist started replacing supplements. Also started metoprolol this morning. She denies acute cardiac symptoms. Denies chest pain or palpitations. No orthopnea, PND or edema. No dizziness or syncope/near syncope. She notes ongoing weakness and SOB. cough and wheezing noted. Allergies Allergy/AdvReac Type Severity Reaction Status Date / Time Penicillins Allergy Intermediate Rash Verified 10/23/21 18:43 Home Medications Medication Instructions Recorded Confirmed Type cholecalciferol (vitamin D3) 50 2,000 mcg PO DAILY 06/19/19 09/17/22 History mcg (2,000 unit) capsule (Vitamin D3) folic acid 1 mg tablet 1 mg PO DAILY 06/19/19 09/17/22 History pravastatin 10 mg tablet 10 mg PO DAILY 06/19/19 09/17/22 History alendronate 70 mg tablet 70 mg PO Q7D 02/24/21 09/17/22 History ferrous sulfate 325 mg (65 mg 325 mg PO BID 02/24/21 09/17/22 History iron) tablet fluticasone propionate 50 2 spray intranasal DAILY 02/24/21 09/17/22 History mcg/actuation nasal spray,suspension pantoprazole 20 mg tablet,delayed 20 mg PO DAILY 02/24/21 09/17/22 History release fluticasone propionate 110 1 inh inhalation BID 10/23/21 09/17/22 History mcg/actuation HFA aerosol inhaler (Flovent HFA) ipratropium 20 mcg-albuterol 100 1 puff inhalation BID 10/23/21 09/17/22 History mcg/actuation mist for inhalation (Combivent Respimat) hydrocortisone 10 mg tablet 10 mg PO DAILY@1500 #30 tabs 10/30/21 09/17/22 Rx (Cortef) hydrocortisone 10 mg tablet 20 mg PO QAM #30 tabs 10/30/21 09/17/22 Rx (Cortef) thiamine HCl (vitamin B1) 100 mg 100 mg PO DAILY #30 tabs 10/30/21 09/17/22 Rx tablet aspirin 81 mg chewable tablet 81 mg PO BID #60 tabs 04/10/22 09/17/22 Rx (Sherri Chewable Low Dose Aspirin) [id number] 1 cap PO DAILY 09/17/22 09/17/22 History 36,000-114,000-180,000 unit capsule,delay rel (Creon) potassium chloride 20 mEq 20 meq PO TID 09/17/22 09/17/22 History tablet,extended release Patient History Medical History COPD (chronic obstructive pulmonary disease) GERD (gastroesophageal reflux disease) History of alcohol abuse Hyperlipidemia Hypertension Hypokalemia Hyponatremia Hypotension Osteoporosis Protein calorie malnutrition Rheumatoid arthritis Smoking Surgical History S/P section Family History Other No significant family history Social History Smoking Status: Current every day smoker Cigarettes Per Day: 1-2/day; Second Hand Exposure: Yes; Do You Dip or Chew Tobacco: No; Hx Alcohol Use: Yes Alcohol type: beer Hx Substance Use: Yes Preferred Language: Portuguese Communication Ability: Impaired 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 Beliefs That Will Affect Care: None marital status: Single Current Living Situation: Other Current Living Situation Comment: roomate current occupational status: unemployed Other Information That Helps Us Care for You: No Feels Safe at Home: Yes Assistive Devices: Walker Review of Systems Review of Systems: All systems reviewed & are unremarkable except as noted in HPI & below Physical Exam Constitutional: WD/WN, vitals as above + thin Neck: trachea midline, no thyromegaly Respiratory: + cough; no respiratory distress Auscultation: + wheezes Cardiovascular: Rate/Rhythm: regular rate Heart Sounds: normal S1 and normal S2; no murmur Vessels: no JVD Extremities: no edema Gastrointestinal (Abdomen): normal bowel sounds, soft, nontender, no hepatosplenomegaly Skin: no rashes, warm and dry Neurologic: PERRL, EOMI, accommodation nl, no face palsy, no dysarthria Results & Data Vital Signs (Past 12 Hours) Vital Signs Temp Pulse Pulse Pulse Resp BP Pulse Ox 09/23/22 08:04 36.4 C L 80 20 121/83 95 09/23/22 06:37 36.6 C 78 18 130/86 94 09/22/22 21:00 09/23/22 03:04 36.6 C 84 18 124/74 94 09/22/22 22:23 84 09/22/22 23:09 36.5 C 80 18 117/72 96 O2 Del Method 09/23/22 08:04 Room Air 09/23/22 06:37 Room Air 09/22/22 21:00 Room Air 09/23/22 03:04 Room Air 09/22/22 22:23 09/22/22 23:09 Room Air Laboratory Results Comprehensive Metabolic Panel 09/23/22 Range/Units 07:47 Sodium 132 L (136-145) mmol/L Potassium 3.7 (3.5-5.1) mmol/L Chloride 99 (98-107) mmol/L Carbon Dioxide 29 (21-32) mmol/L BUN 5 L (6-23) mg/dl Creatinine 0.39 L (0.6-1.2) mg/dl Glucose 85 (70-99(Fasting)) mg/dl Calcium 8.0 L (8.6-10.3) mg/dl Intake and Output 09/22/22 09/23/22 09/23/22 22:59 06:59 14:59 Intake Total 493.334 / 1149.167 80 / 1149.167 Output Total 2 / 2 Balance 493.334 / 1147.167 78 / 1147.167 Intake: IV 293.334 / 389.167 Magnesium Sulfate / D5w 1 gm In 293.334 / 389.167 100 ml @ 50 mls/hr IV Q2H [facility] Rx#:[id number] Oral 200 / 760 80 / 760 Output: # Bowel Movements 2 / 2 Other: # Unmeasured Voids 1 1 Weight 64.3 kg Weight Measurement Method Built in [facility] Diagnostic Findings Telemetry reviewed: NSR with HR's ranging 80-100 bpm primarily 09/19 at 16:44 she had about 15 beat run of wide complex tachycardia 09/21 she had 5 beat run of wide complex tachycardia 09/23 at 3:50 AM she had about 10-15 beat run of wide complex tachycardia Echo report reviewed from 09/16/22: LV systolic function is normal No regional wall motion abnormalities noted. EF 55-60% no significant valvular pathology. Compared with prior study in 04/2017, no significant change. Medications Administered Current Inpatient Medications Acetaminophen (Acetaminophen 325 Mg Tab) 650 mg PO Q4H PRN PRN Reason: Pain or Fever Stop: 10/16/22 15:39 Last Admin: 09/16/22 22:25 Dose: 650 mg Albuterol (Albut/Ipratrop 3mg/0.5mg Neb 3 Ml Vial) 3 ml NEB QIDR [facility]; Protocol Stop: 10/19/22 14:59 Last Admin: 09/23/22 09:14 Dose: Not Given Lipase/Protease/Amylase (Pancreaze (Lipase 10,500u) Cap) 1 cap PO AC [facility] Stop: 10/16/22 16:29 Last Admin: 09/23/22 08:47 Dose: 1 cap Enoxaparin Sodium (Enoxaparin Inj 30 Mg/0.3 Ml Syr) 30 mg SQ QAM [facility] Stop: 10/17/22 08:59 Last Admin: 09/23/22 08:47 Dose: 30 mg Fluticasone Furoate (Fluticasone Furoate 100mcg 14 Puffs/Inhaler) 1 puffs INH DAILY [facility] Stop: 10/18/22 08:59 Last Admin: 09/23/22 08:48 Dose: 1 puffs Fluticasone Propionate (Fluticasone Propionate Na Spr 16 Gm Btl) 2 sprays MANOLO DAILY [facility] Stop: 10/17/22 08:59 Last Admin: 09/23/22 08:48 Dose: 2 sprays Folic Acid (Folic Acid 1 Mg Tab) 1 mg PO DAILY [facility] Stop: 10/17/22 08:59 Last Admin: 09/23/22 08:48 Dose: 1 mg Guaifenesin (Guaifenesin Sugar Free 200 Mg/10 Ml Udc) 200 mg PO BID PRN PRN Reason: Cough Stop: 10/20/22 22:34 Last Admin: 09/22/22 20:23 Dose: 200 mg Hydrocortisone ([facility]isone 10 Mg Tab) [facility] [place]: 10/19/22 08:59 Last Admin: 09/23/22 08:49 Dose: 20 mg Hydrocortisone (Hydrocortisone 10 Mg Tab) 10 mg PO DAILY@1400 [facility] Stop: 10/19/22 13:59 Last Admin: 09/22/22 14:24 Dose: 10 mg Lorazepam (Lorazepam 2 Mg/1 Ml Vial) 1 mg IV ONE PRN; Protocol PRN Reason: EtoH Withdrawal AWSS 6,7,8,9,10 Magnesium Oxide (Magnesium Oxide 400 Mg Tab) 400 mg PO [facility] Stop: 10/23/22 08:59 Last Admin: 09/23/22 09:42 Dose: 400 mg Menthol (Cough Drop (Sugar Free) Amy 24 Amy/1 Box) 1 amy BUCCAL Q6H PRN PRN Reason: Sore Throat Stop: 10/19/22 12:06 Last Admin: 09/19/22 12:33 Dose: 1 amy Metoprolol Succinate (Metoprolol Succ 25mg Ext Rel Tab) 25 mg PO [facility] Stop: 10/23/22 08:59 Last Admin: 09/23/22 08:51 Dose: 25 mg Miconazole Nitrate (Miconazole Nitrate Powder 85 Gm) 1 appln EXT BID PRN PRN Reason: Affected Skin Folds Stop: 10/20/22 22:23 Last Admin: 09/21/22 08:14 Dose: 1 appln Ondansetron HCl (Ondansetron Inj 2 Mg/Ml 2 Ml Vial) 4 mg IV Q6H PRN PRN Reason: Nausea Stop: 10/16/22 15:39 Pantoprazole Sodium (Pantoprazole 40 Mg Tab) 40 mg PO [facility] Stop: 10/16/22 16:14 Last Admin: 09/23/22 08:49 Dose: 40 mg Potassium Chloride (Potassium Chloride Pwd 20 Meq Pack) 20 meq PO BID [facility] Stop: 10/22/22 11:59 Last Admin: 09/23/22 09:42 Dose: 20 meq Sodium Chloride (Sodium Chlor 7% 4 Ml Neb) 4 ml NEB BIDR [facility] Stop: 10/19/22 18:59 Last Admin: 09/23/22 09:14 Dose: Not Given
[2022-09-23] MEDS: PANCREAZE (LIPASE 10,500U) CAP PO SCH ×3 (08:47→16:00)
[2022-09-23] MEDS: ENOXAPARIN INJ 30 MG/0.3 ML SYR SQ SCH (08:47)
[2022-09-23] MEDS: FOLIC ACID 1 MG TAB PO SCH (08:48)
[2022-09-23] MEDS: FLUTICASONE PROPIONATE NA SPR 16 GM BTL NAE SCH (08:48)
[2022-09-23] MEDS: FLUTICASONE FUROATE 100MCG 14 PUFFS/INHALER INH SCH (08:48)
[2022-09-23] MEDS: HYDROCORTISONE 10 MG TAB PO SCH ×2 (08:49→16:00)
[2022-09-23] MEDS: PANTOprazole 40 MG TAB PO SCH (08:49)
[2022-09-23] MEDS: METOPROLOL SUCC 25MG EXT REL TAB PO SCH (08:51)
[2022-09-23] MEDS: SODIUM CHLOR 7% 4 ML NEB NEB SCH ×2 (09:14→19:05)
[2022-09-23] MEDS: ALBUT/IPRATROP 3MG/0.5MG NEB 3 ML VIAL NEB SCH ×4 (09:14→19:05)
[2022-09-23] MEDS: MAGNESIUM OXIDE 400 MG TAB PO SCH ×3 (09:42→20:21)
[2022-09-23] MEDS: POTASSIUM CHLORIDE PWD 20 MEQ PACK PO SCH ×2 (09:42→20:21)
[2022-09-23] MEDS: POTASSIUM CHLORIDE CRTAB 20 MEQ TABCR PO SCH (13:05)
--- NOTE | 2022-09-23 14:15 | Hospitalist Progress Note ---
Date of Service September 23, 2022 Assessment & Plan (1) Adrenal insufficiency: Plan: h/o this per records. Per records she takes hydrocortisone 20 mg every morning and 10 mg nightly. Patient received extra stress dose steroid earlier in the hospitalization. change back to hydrocortisone 20 mg a.m. and 10 mg in afternoon. Patient will need to follow-up with PCP and obtain referral for endocrinology for outpatient work-up for adrenal insufficiency. (2) Acute hyponatremia: Plan: Likely related to poor oral intake, adrenal insufficiency Sodium on admission 118; Labs reviewed today; improved to 132 Continue fluid restriction of 1500 mL. Obtain BMP daily (3) Weakness: Plan: Multifactorial likely secondary to possible adrenal crisis in setting of infection. Cont with hydrocortisone use and supportive care. PT OT recommended rehab awaiting placement. (4) Protein calorie malnutrition: Plan: Longstanding protein calorie malnutrition that is multifactorial including poor PO intake in setting of poor PO intake and heavy alcohol use. Consult dieticia n. (5) Diarrhea: (6) Gastroenteritis: Plan: CT abdomen pelvis suggest gastroenteritis. Cont to monitor electrolytes and replace as needed. cont supportive care. No symptoms of diarrhea presently. (7) Aspiration pneumonia: Plan: known substance abuse history with poor health generally puts her at risk for aspiration. A few patchy airspace opacities in the lung bases suggestive of possible pneumonia secondary to aspiration. Completed 5-day course of ceftriaxone and Flagyl. Swallow evaluation done; recommend to continue same diet. (8) Infection due to human metapneumovirus (hMPV): Plan: supportive care at this time. (9) Alcohol use: Plan: This likely contributes to poor nutrition and low sodium. Monitor closely for withdrawal. (10) Smoking: Plan: h/o this. Nicoderm patch as needed. (11) Osteoporosis: (12) Rheumatoid arthritis: Plan: Limited records available. Patient is unaware of what medications she is using. Per previous notes she is not on DMARDs (13) NSVT (nonsustained ventricular tachycardia): Plan: During the hospitalization, patient had 3 episodes of NSVT; 5-15 beats episodes. Patient denies any symptoms. Echocardiogram done on 09/17 shows normal LV systolic function. EF of 55 to 60%. Discussed with cardiology; recommended to replete electrolytes. Patient is started on metoprolol. Continue to monitor on telemetry. (14) Frequent falls: Plan: 2/2 poor overall health and recent hip fracture. She was treated for a right displaced femoral fracture status post intramedullary nail in March 2022. She developed acute on chronic anemia secondary to blood loss. She was transition to [facility] for rehab. She has multiple old healed fractures in the bilateral ribs. There is loss of height within the T12 vertebral body which favors a subacute to chronic fracture. She is not reporting any acute pain. There is a focal central lucency at the T12 vertebral body which measures 11 mm likely due to the nonunited fracture however a pathologic fracture is considered less likely but not entirely excluded. As she is not reporting any back pain this should be followed up as outpatient. Severe protein calorie malnutritionIn the setting of chronic alcoholism, acute aspiration pneumonia, and acute adrenal crisis: -Weight loss noted since last hospitalization. Nutritional supplement ordered. Lovenox Full Code Dispo-PT OT eval done; recommends SNF. Case management on board. Please note the above document was generated using voice recognition software. It may contain grammatical, syntax or spelling errors. Any formal questions or concerns about the content, text or information contained within the body of this dictation should be directly addressed to the provider for clarification Admission and Anticipated Discharge Date Admission Date: September 16, 2022 Subjective Patient seen and examined at bedside. She is comfortably sitting on a chair; no t in any distress. She denies any fever, chills or chest pain. Telemetry showed NSVT of 15 beats overnight. Patient denies any symptoms. Review of Systems Review of Systems: All systems reviewed & are unremarkable except as noted in Subjective Physical Exam Physical Exam: CONSTITUTIONAL: thin, appears malnourished, NAD EYES: normal conjunctivae, no scleral icterus ENT: external ear and nose normal, poor dentition NECK: trachea midline RESPIRATORY: Conducted upper airway sounds. No crackles, rales or wheezes, normal respiratory effort CARDIOVASCULAR: regular rate and rhythm, S1 and 2 heard without murmurs, gallops or rubs, no JVD, no peripheral edema CHEST: inspection of chest was normal GASTROINTESTINAL: soft, nontender, no guarding MUSCULOSKELETAL: generalized weakness, cannot sit up in bed independently, head is normocephalic and atraumatic SKIN: warm and dry NEUROLOGIC: CN 2-12 grossly intact, no sensory deficit, normal cognition, normal speech, no tremor PSYCHIATRIC: alert cooperative and answering questions appropriately. Results & Data Results & Data Vital Signs (Past 12 Hours) Vital Signs Temp Pulse Pulse Pulse Resp BP Pulse Ox 09/23/22 11:59 86 20 95 09/23/22 09:17 76 09/23/22 09:07 09/23/22 08:04 36.4 C L 80 20 121/83 95 09/23/22 06:37 36.6 C 78 18 130/86 94 09/23/22 03:04 36.6 C 84 18 124/74 94 O2 Del Method 09/23/22 11:59 Room Air 09/23/22 09:17 09/23/22 09:07 Room Air 09/23/22 08:04 Room Air 09/23/22 06:37 Room Air 09/23/22 03:04 Room Air Laboratory Results Laboratory Results WBC 3.57 K/ul (4.8-10.8) L 09/21/22 06:29 RBC 3.19 M/uL (4.20-5.40) L 09/21/22 06:29 Hgb 10.7 g/dl (12.0-16.0) L 09/21/22 06:29 Hct 29.0 % (37.0-47.0) L 09/21/22 06:29 MCV 90.9 fL (80.0-100.0) 09/21/22 06:29 MCH 33.5 pg (25.0-34.0) 09/21/22 06:29 MCHC 36.9 g/dL (32.0-36.0) H 09/21/22 06:29 RDW Std Deviation 44.9 fL (36.4-46.3) 09/21/22 06:29 RDW Coeff of Elo 13.3 % (11.5-14.5) 09/21/22 06:29 Plt Count 199 K/uL (130-400) 09/21/22 06:29 MPV 9.5 fL (9.4-12.4) 09/21/22 06:29 Immature Gran % (Auto) 0.6 % 09/21/22 06:29 Neut % (Auto) 31.8 % 09/21/22 06:29 Lymph % (Auto) 51.0 % 09/21/22 06:29 Waldo % (Auto) 16.0 % 09/21/22 06:29 Eos % (Auto) 0.6 % 09/21/22 06:29 Baso % (Auto) 0.0 % 09/21/22 06:29 Neut # (Auto) 1.14 K/uL (1.40-6.50) L 09/21/22 06:29 Lymph # (Auto) 1.82 K/uL (1.2-3.4) 09/21/22 06:29 Waldo # (Auto) 0.57 K/uL (0.11-0.59) 09/21/22 06:29 Eos # (Auto) 0.02 K/uL (0-0.50) 09/21/22 06:29 Baso # (Auto) 0.00 K/uL (0-0.2) 09/21/22 06: Immature Gran # (Auto) 0.02 K/uL (0.01-0.20) 09/21/22 06:29 PT 12.0 Seconds (9.0-12.0) 09/16/22 09:42 INR 1.1 (0.9-1.1) 09/16/22 09:42 APTT 35.4 Seconds (21.0-31.0) H 09/16/22 09:42 PTT Ratio 1.3 09/16/22 09:42 Sodium 132 mmol/L (136-145) L 09/23/22 07:47 Potassium 3.7 mmol/L (3.5-5.1) 09/23/22 07:47 Chloride 99 mmol/L (98-107) 09/23/22 07:47 Carbon Dioxide 29 mmol/L (21-32) 09/23/22 07:47 Anion Gap 4 (3-11) 09/23/22 07:47 BUN 5 mg/dl (6-23) L 09/23/22 07:47 Creatinine 0.39 mg/dl (0.6-1.2) L 09/23/22 07:47 Est Cr Clr Drug Dosing 128.4 ml/min 09/23/22 07:47 Est GFR ( Amer) 132.3 ml/min 09/23/22 07:47 Est GFR (Non-Af Amer) 114.2 ml/min 09/23/22 07:47 BUN/Creatinine Ratio 12.8 (10-20) 09/23/22 07:47 Glucose 85 mg/dl (70-99(Fasting)) 09/23/22 07:47 Osmolality 249 mOsm/kg (280-300) L 09/16/22 12:19 Lactate 1.1 mmol/L (0.4-2.0) 09/16/22 10:20 Calcium 8.0 mg/dl (8.6-10.3) L 09/23/22 07:47 Phosphorus 1.9 mg/dl (2.5-4.9) L 09/18/22 06:50 Magnesium 1.8 mg/dl (1.7-2.4) 09/23/22 07:47 Total Bilirubin 0.3 mg/dl (0.2-1.0) 09/21/22 06:29 Direct Bilirubin 0.1 mg/dl (0-0.2) 09/16/22 09:42 AST 13 U/L (13-39) 09/21/22 06:29 ALT 12 U/L (7-52) 09/21/22 06:29 Alkaline Phosphatase 48 U/L (34-104) 09/21/22 06:29 Ammonia 34.0 umol/L (18-72) 09/17/22 07:17 Total Creatine Kinase 22 U/L (26-192) L 09/18/22 06:50 Troponin I High Sens 16.9 pg/ml (0-14) H D 09/16/22 15:47 Total Protein 4.4 gm/dl (6.0-8.3) L 09/21/22 06:29 Albumin 2.5 gm/dl (3.4-5.0) L 09/21/22 06:29 Globulin 1.9 gm/dl (2.5-4.0) L 09/21/22 06:29 Albumin/Globulin Ratio 1.3 (0.9-2) 09/21/22 06:29 Vitamin B1 <6 nmol/L (8-30) L 09/16/22 12:19 Vitamin B12 129 pg/ml (180-914) L 09/16/22 12:29 Folate 20.08 ng/ml (>5.38) 09/16/22 12:29 Procalcitonin 0.07 ng/ml (0-0.5) 09/16/22 09:42 TSH 0.913 uIu/ml (0.300-4.500) 09/17/22 07:17 Urine Color Yellow 09/16/22 09:49 Urine Appearance Clear (Clear) 09/16/22 09:49 Urine pH 6.5 (4.5-7.5) 09/16/22 09:49 Ur Specific [place] 1.006 (1.000-1.030) 09/16/22 09:49 Urine Protein Negative (Negative) 09/16/22 09:49 Urine Glucose (UA) Negative (Negative) 09/16/22 09:49 Urine Ketones 2+ (Negative) H 09/16/22 09:49 Urine Blood Negative (Negative) 09/16/22 09:49 Urine Nitrite Negative (Negative) 09/16/22 09:49 Urine Bilirubin Negative (Negative) 09/16/22 09:49 Urine Urobilinogen Negative (Negative) 09/16/22 09:49 Ur Leukocyte Esterase Negative (Negative) 09/16/22 09:49 Urine Osmolality 152 mOsm/kg (500-800) L 09/16/22 09:49 Ur Random Sodium < 10 mmol/L 09/16/22 12:10 Stl C. cayetanensis PCR Not Detected (NotDetected) 09/16/22 09:41 Stool Rotavirus A PCR Not Detected (NotDetected) 09/16/22 09:41 Stl Adenov F 40/41 PCR Not Detected (NotDetected) 09/16/22 09:41 Stool Astrovirus (PCR) Not Detected (NotDetected) 09/16/22 09:41 Stool Campylobacter PCR Not Detected (NotDetected) 09/16/22 09:41 Stl C. diff Tox B Gene Negative Cdiff Gene (Neg) 09/16/22 09:41 Stool Cryptosporidium PCR Not Detected (NotDetected) 09/16/22 09:41 Stl E.coli Shiga Tox PCR Not Detected (NotDetected) 09/16/22 09:41 Stl Enterotoxigenic E PCR Not Detected (NotDetected) 09/16/22 09:41 Stool EPEC (PCR) Not Detected (NotDetected) 09/16/22 09:41 Stool EAEC (PCR) Not Detected (NotDetected) 09/16/22 09:41 Stl E. histolytica PCR Not Detected (NotDetected) 09/16/22 09:41 Stool Giardia Lamblia PCR Not Detected (NotDetected) 09/16/22 09:41 Stool Salmonella PCR Not Detected (NotDetected) 09/16/22 09:41 Stool Sapovirus (PCR) Not Detected (NotDetected) 09/16/22 09:41 Stl P. shigelloides PCR Not Detected (NotDetected) 09/16/22 09:41 Stl Shigella/EIEC PCR Not Detected (NotDetected) 09/16/22 09:41 St Y.enterocolitica PCR Not Detected (NotDetected) 09/16/22 09:41 Stool Vibrio (PCR) Not Detected (NotDetected) 09/16/22 09:41 Stl Vibrio cholerae PCR Not Detected (NotDetected) 09/16/22 09:41 Stl Norovirus GI/GII PCR Not Detected (NotDetected) 09/16/22 09:41 Urine Opiates Screen Neg (Neg) 09/18/22 15:40 Ur Methadone, Qual Neg (Neg) 09/18/22 15:40 Urine Barbiturates Neg (Neg) 09/18/22 15:40 Ur Phencyclidine (PCP) Neg (Neg) 09/18/22 15:40 U Amphetamin/Meth Scrn Neg (Neg) 09/18/22 15:40 MDMA (Ecstasy) Screen Neg (Neg) 09/18/22 15:40 U Benzodiazepines Scrn Neg (Neg) 09/18/22 15:40 Ur Cocaine Metabolite Neg (Neg) 09/18/22 15:40 U Marijuana (THC) Screen Neg (Neg) 09/18/22 15:40 Ethyl Alcohol mg/dL < 10.0 mg/dl (<10.0) 09/16/22 09:42 Adenovirus (PCR) Not Detected (NotDetected) 09/16/22 09:41 B. pertussis DNA (PCR) Not Detected (NotDetected) 09/16/22 09:41 B.parapertussis DNA PCR Not Detected (NotDetected) 09/16/22 09:41 C. pneumoniae DNA (PCR) Not Detected (NotDetected) 09/16/22 09:41 Coronavirus OC43 (PCR) Not Detected (NotDetected) 09/16/22 09:41 Coronavirus HKU1 (PCR) Not Detected (NotDetected) 09/16/22 09:41 Coronavirus 229E (PCR) Not Detected (NotDetected) 09/16/22 09:41 SARS-CoV-2 (PCR) Not Detected (NotDetected) 09/16/22 09:41 Coronavirus NL63 (PCR) Not Detected (NotDetected) 09/16/22 09:41 Human Metapneumovir PCR DETECTED (NotDetected) A* 09/16/22 09:41 Influenza Type A (PCR) Not Detected (NotDetected) 09/16/22 09:41 Influenza Type B (PCR) Not Detected (NotDetected) 09/16/22 09:41 M. pneumoniae (PCR) Not Detected (NotDetected) 09/16/22 09:41 Parainfluenza 1 (PCR) Not Detected (NotDetected) 09/16/22 09:41 Parainfluenza 2 (PCR) Not Detected (NotDetected) 09/16/22 09:41 Parainfluenza 3 (PCR) Not Detected (NotDetected) 09/16/22 09:41 Parainfluenza 4 (PCR) Not Detected (NotDetected) 09/16/22 09:41 RSV (PCR) Not Detected (NotDetected) 09/16/22 09:41 Entero/Rhino (PCR) Not Detected (NotDetected) 09/16/22 09:41 Impressions Chest X-Ray 09/16/22 09:33 XR chest 1V portable CLINICAL HISTORY: Sepsis. COMPARISON STUDY: Chest CT October 22, 2019. Chest radiograph April 07, 2022. FINDINGS: Old, healed proximal right humeral fracture is noted. There are multiple old, healed bilateral rib fractures. Bilateral clavicular and left humeral internal fixations are incidentally noted. No pneumothorax or pleural effusion. There is no consolidation to suggest pneumonia. No evidence for pulmonary edema. Cardiomediastinal silhouette is stable. IMPRESSION: No acute cardiopulmonary findings. No significant change in appearance of the chest. ACT 112: Negative or not required by law. Electronically signed by: Gigi Dia M.D. 09/16/2022 10:37 AM Abdomen/Pelvis CT 09/16/22 09:[address] WITHOUT CONTRAST CT DOSE: HISTORY: diarrhea, poss colitis TECHNIQUE: Multiaxial CT images of the abdomen and pelvis were performed without contrast. A dose lowering technique was utilized adhering to the principles of ALARA. COMPARISON STUDY: Abdomen and pelvis CT 10/23/2021. FINDINGS: There is sclerosis and moderate loss of height within the T12 vertebral body which favors a subacute to chronic fracture. Mild paravertebral fat stranding/edema at this level. This demonstrates up to 3 mm of retropulsion and mild central canal narrowing at this level. Focal central lucency at the T12 vertebral body which measures 11 mm which is likely due to the nonunited fracture. A pathologic fracture in the setting of underlying lesion or infection is considered less likely but not entirely excluded. Internal fixation of an old, healed right pelvic fracture is noted. There are old, healed bilateral pubic ring fractures identified. Old, healed sacral fracture is noted. Old transverse process fractures within the left side of the lumbar spine. Old bilateral rib fractures are noted. No definite acute fractures identified. Levoscoliosis of the lumbar spine. A few patchy airspace opacities within the lung bases with tree-in-bud nodular opacities and partial opacification of the distal bronchi. This is consistent with a pneumonia and likely due to aspiration. No pneumoperitoneum. No pneumatosis. Superficial soft tissue thickening at the sacrum. No underlying bony destruction to suggest an osteomyelitis at this time. The unenhanced liver, spleen, adrenal glands, pancreas, and kidneys unremarkable. No hydronephrosis. No retroperitoneal lymphadenopathy. Mild calcified plaque within the normal caliber abdominal aorta. Multiple gallstones are again noted. No gallbladder wall thickening. The gallbladder is decompressed. No retroperitoneal or pelvic lymphadenopathy. No pelvic free fluid. The uterus and adnexa are unremarkable. Mild left anterior bladder wall thickening. Suboptimal evaluation for bowel pathology due to the lack of intravenous and oral contrast. However, there is no definite bowel wall thickening or obstruction. Fluid-filled large and small bowel is noted. IMPRESSION: 1. Fluid-filled nondilated loops of large and small bowel seen throughout the abdomen. This favors a diarrheal illness/gastroenteritis. 2. No evidence for a bowel obstruction. 3. Cholelithiasis. No gallbladder wall thickening. 4. A few patchy airspace opacities within the lung bases with tree-in-bud nodular opacities and partial opacification of the distal bronchi. This is consistent with a pneumonia and likely due to aspiration. 5. Mild left anterior bladder wall thickening. Recommend correlation with urinalysis. 6. Multiple old, healed fractures as described above. 7. There is sclerosis and moderate loss of height within the T12 vertebral body which favors a subacute to chronic fracture. Mild paravertebral fat stranding/edema is noted at this level. Focal central lucency at the T12 verte bral body which measures 11 mm which is likely due to the nonunited fracture. A pathologic fracture in the setting of an underlying lesion or infection is considered less likely but not entirely excluded. ACT 112: Negative or not required by law. Electronically signed by: Gerald Cee M.D. 09/16/2022 11:[address] 09/16/22 09:39 CT OF THE HEAD WITHOUT CONTRAST CLINICAL HISTORY: Confusion. COMPARISON STUDY: Head CT October 22, 2019. CT DOSE: 871.14 mGy.cm TECHNIQUE: Helical axial images of the head were obtained without IV contrast. Automated exposure control was utilized for the study. A dose lowering technique was utilized adhering to the principles of ALARA. FINDINGS: No acute intracranial hemorrhage, midline shift or mass effect is present. White matter hypodensity suggests small vessel disease. Ventricular system is unremarkable. The basal cisterns are patent. No extra-axial collections are present. There are no findings to suggest acute dural sinus thrombosis or acute territorial infarct. No significant calvarial abnormalities are present. Visualized portions of the sinuses and mastoid air cells are clear. IMPRESSION: No acute intracranial findings. ACT 112: Negative or not required by law. Electronically signed by: Gigi Dia M.D. 09/16/2022 11:10 AM Venous Doppler Study 09/16/22 12:48 Exam(s): US VENOUS BILATERAL LOWER EXTREMITIES EXAM: US Duplex Bilateral Lower Extremities Veins CLINICAL HISTORY: Reason for exam: Le swelling, r/o DVT. TECHNIQUE: Real-time duplex ultrasound scan of the bilateral lower extremity veins integrating B-mode two-dimensional vascular structure, Doppler spectral analysis, color flow Doppler imaging and compression. COMPARISON: None. FINDINGS: Right deep veins: Unremarkable. No DVT in the right common femoral, femoral, proximal deep femoral or popliteal veins. The veins demonstrate normal color flow, are normally compressible, with normal phasic flow and/or augmentation response. Right superficial veins: Unremarkable. No thrombus in the visualized right great saphenous vein. Left deep veins: Unremarkable. No DVT in the left common femoral, femoral, proximal deep femoral or popliteal veins. The veins demonstrate normal color flow, are normally compressible, with normal phasic flow and/or augmentation response. Left superficial veins: Unremarkable. No thrombus in the visualized left great saphenous vein. Soft tissues: No acute findings. No popliteal cyst. Other findings: Suboptimally visualized calf veins with visualized portion revealing normal flow. IMPRESSION: No ultrasonographic evidence of deep venous thrombosis involving the bilateral lower extremities. Electronically signed by: Kelsi Theodore MD 09/16/22 21:59 PM (5) Diarrhea Diarrhea type: unspecified type Qualified Code(s): R19.7 - Diarrhea, unspecified
[2022-09-24] MEDS: SODIUM CHLOR 7% 4 ML NEB NEB SCH (07:20)
[2022-09-24] MEDS: ALBUT/IPRATROP 3MG/0.5MG NEB 3 ML VIAL NEB SCH ×2 (07:20→11:05)
[2022-09-24] MEDS: ENOXAPARIN INJ 30 MG/0.3 ML SYR SQ SCH (07:52)
[2022-09-24] MEDS: POTASSIUM CHLORIDE PWD 20 MEQ PACK PO SCH (07:55)
[2022-09-24] MEDS: POTASSIUM CHLORIDE CRTAB 20 MEQ TABCR PO SCH (07:55)
[2022-09-24] MEDS: FLUTICASONE FUROATE 100MCG 14 PUFFS/INHALER INH SCH (07:56)
[2022-09-24] MEDS: PANTOprazole 40 MG TAB PO SCH (07:57)
[2022-09-24] MEDS: MAGNESIUM OXIDE 400 MG TAB PO SCH ×2 (07:57→08:00)
[2022-09-24] MEDS: FLUTICASONE PROPIONATE NA SPR 16 GM BTL NAE SCH (07:58)
[2022-09-24] MEDS: HYDROCORTISONE 10 MG TAB PO SCH (07:58)
[2022-09-24] MEDS: PANCREAZE (LIPASE 10,500U) CAP PO SCH ×2 (07:59→12:25)
[2022-09-24] MEDS: FOLIC ACID 1 MG TAB PO SCH (07:59)
[2022-09-24] MEDS: METOPROLOL SUCC 25MG EXT REL TAB PO SCH (08:00)
[2022-09-24 08:17] LABS: BUN Creatinine Ratio 19.6 (10-20); Calcium 8.1 mg/dl (8.6-10.3); Creatinine Clr Calc Pharmacy 111.2 ml/min; Est GFR (African American) 125.3 ml/min; Est GFR (Non-African American) 108.1 ml/min; Magnesium 1.5 mg/dl (1.7-2.4); Potassium 4.4 mmol/L (3.5-5.1)
[2022-09-24 08:23] LABS: Troponin I High Sensitivity 18.5 pg/ml (0-14)
[2022-09-24] MEDS ORDERED: MAGNESIUM SULFATE / D5W 1 GM/100 ML BAG IV SCH (09:00)
--- NOTE | 2022-09-24 11:20 | Cardiology Progress Note ---
Date of Service September 24, 2022 Assessment & Plan (1) Wide-complex tachycardia: (2) Acute hyponatremia: (3) Hypomagnesemia: (4) Abnormal EKG: Plan Patient admitted for adrenal insufficiency, hyponatremia, with electrolyte disturbances in setting of chronic alcohol abuse and malnutrition. During admission she had several runs of wide complex tachycardia, suggestive of Non sustained VT. No symptoms. VT occurred in setting of low potassium, low magnesium. Goal K is 4.0-5.0 Supplement magnesium until > 2.0. Tolerating low dose metoprolol succinate 25 mg daily. No recurrent arrhythmias on telemetry overnight. She developed new T wave inversions on EKG. no symptoms. Repeat echo with preserved LVEF, no wall motion abnormalities. would consider outpatient nuclear stress test once her weakness improves. Patient to be discharged to rehab today. Acceptable from cardiac perspective, as she is asymptomatic. Continue magnesium and metoprolol. Monitor labs closely upon discharge. Case discussed with Dr. Nicolas. I spent a total of 35 minutes on the date of service in preparation, delivery, and documentation of the care provided to this patient, excluding any time spent in the performance of separately billed services. Jackie Hunter PA-C Department of Cardiology, [facility] This chart was completed in part utilizing Speech Voice Recognition Software. Grammatical errors, random word insertions, prounoun errors, and incomplete sentences are an occasional consequence of this system due to software limitations, ambient noise, and hardware issues. Any formal questions or concerns about the content, text, or information contained within the body of t his dictation should be directly addressed to the provider for clarification. Admission and Anticipated Discharge Date Admission Date: September 16, 2022 Supervising Physician Co-Signing Physician Notes Supervising Physician Attestation: I agree with the physician social research assistant's findings and plan as documented with the following additions. Patient discharged before had the opportunity to personally interview and examine her today. Patient with overall poor health. Would recommend most appropriate neck step ongoing medication management with metoprolol and making sure her electrolytes remain optimized. No symptoms suggestive angina reported. Subjective Patient resting in bed comfortably. Anxious for discharge and hoping to go to rehab today. She denies chest pain or SOB. No dizziness or lightheadedness. Yesterday she was found to have T wave inversions on EKG in anterior and lateral leads. No symptoms. Repeat echo without wall motion abnormalities. She was started on metoprolol due to WCT and no recurrence. Review of Systems Review of Systems: All systems reviewed & are unremarkable except as noted in HPI & below Physical Exam Constitutional: WD/WN, vitals as above + thin Neck: trachea midline, no thyromegaly Respiratory: + cough; no respiratory distress Auscultation: + wheezes Cardiovascular: Rate/Rhythm: regular rate Heart Sounds: normal S1 and normal S2; no murmur Vessels: no JVD Extremities: no edema Gastrointestinal (Abdomen): normal bowel sounds, soft, nontender, no hepatosplenomegaly Skin: no rashes, warm and dry Neurologic: PERRL, EOMI, accommodation nl, no face palsy, no dysarthria Results & Data Vital Signs (Past 12 Hours) Vital Signs Temp Pulse Pulse Resp BP Pulse Ox O2 Del Method 09/24/22 11:05 80 18 94 Room Air 09/24/22 08:35 Room Air 09/24/22 07:54 36.7 C 80 18 125/82 95 Nebulizer 09/24/22 07:22 79 18 95 Room Air 09/24/22 07:01 72 09/24/22 02:24 36.5 C 72 18 132/88 98 Room Air 09/23/22 23:26 74 Laboratory Results Cardiac Enzymes 09/24/22 Range/Units 07:24 Troponin I High Sens 18.5 H (0-14) pg/ml Comprehensive Metabolic Panel 09/24/22 Range/Units 07:24 Sodium 131 L (136-145) mmol/L Potassium 4.4 (3.5-5.1) mmol/L Chloride 100 (98-107) mmol/L Carbon Dioxide 28 (21-32) mmol/L BUN 9 (6-23) mg/dl Creatinine 0.46 L (0.6-1.2) mg/dl Glucose 84 (70-99(Fasting)) mg/dl Calcium 8.1 L (8.6-10.3) mg/dl Intake and Output 09/23/22 09/24/22 09/24/22 22:59 06:59 14:59 Intake Total 660 / 1200 100 / 1200 60.833 / 60.833 Output Total 4 / 4 Balance 660 / 1196 96 / 1196 60.833 / 60.833 Intake: IV 60.833 / 60.833 Magnesium Sulfate / D5w 1 gm In 60.833 / 60.833 100 ml @ 50 mls/hr IV Q2H [facility] Rx#:[id number] Oral 660 / 1200 100 / 1200 Output: # Bowel Movements 4 / 4 Other: # Unmeasured Voids 1 4 Weight 67.2 kg 67.2 kg Weight Measurement [facility] Weight 09/25/22 06:59 Weight 67.2 kg Diagnostic Findings Telemetry reviewed: NSR in the 80's. No recurrent WCT. EKG from today reviewed: NSR with T wave inversions in anterolateral leads. Medications Administered Current Inpatient Medications Acetaminophen (Acetaminophen 325 Mg Tab) 650 mg PO Q4H PRN PRN Reason: Pain or Fever Stop: 10/16/22 15:39 Last Admin: 09/16/22 22:25 Dose: 650 mg Albuterol (Albut/Ipratrop 3mg/0.5mg Neb 3 Ml Vial) 3 ml NEB QIDR [facility]; Protocol Stop: 10/19/22 14:59 Last Admin: 09/24/22 11:05 Dose: 3 ml Lipase/Protease/Amylase (Pancreaze (Lipase 10,500u) Cap) 1 cap PO AC YOUNG Stop: 10/16/22 16:29 Last Admin: 09/24/22 07:59 Dose: 1 cap Enoxaparin Sodium (Enoxaparin Inj 30 Mg/0.3 Ml Syr) 30 mg SQ QAM [facility] Stop: 10/17/22 08:59 Last Admin: 09/24/22 07:52 Dose: Not Given Fluticasone Furoate (Fluticasone Furoate 100mcg 14 Puffs/Inhaler) 1 puffs INH DAILY [facility] Stop: 10/18/22 08:59 Last Admin: 09/24/22 07:56 Dose: 1 puffs Fluticasone Propionate (Fluticasone Propionate Na Spr 16 Gm Btl) 2 sprays MANOLO DAILY [facility] Stop: 10/17/22 08:59 Last Admin: 09/24/22 07:58 Dose: 2 sprays Folic Acid (Folic Acid 1 Mg Tab) 1 mg PO DAILY YOUNG Stop: 10/17/22 08:59 Last Admin: 09/24/22 07:59 Dose: 1 mg Guaifenesin (Guaifenesin Sugar Free 200 Mg/10 Ml Udc) 200 mg PO BID PRN PRN Reason: Cough Stop: 10/20/22 22:34 Last Admin: 09/22/22 20:23 Dose: 200 mg Hydrocortisone ([facility]is[facility] 10 Mg Tab) [facility] Stop: 10/19/22 08:59 Last Admin: 09/24/22 07:58 Dose: 20 mg Hydrocortisone (Hydrocortisone 10 Mg Tab) 10 mg PO DAILY@1400 [facility] Stop: 10/19/22 13:59 Last Admin: 09/23/22 16:00 Dose: 10 mg Lorazepam (Lorazepam 2 Mg/1 Ml Vial) 1 mg IV ONE PRN; Protocol PRN Reason: EtoH Withdrawal AWSS 6,7,8,9,10 Magnesium Oxide (Magnesium Oxide 400 Mg Tab) 400 mg PO [facility] Stop: 10/23/22 08:59 Last Admin: 09/24/22 07:57 Dose: 400 mg Magnesium Oxide (Magnesium Oxide 400 Mg Tab) 400 mg PO BID [facility] Stop: 10/23/22 12:14 Last Admin: 09/24/22 08:00 Dose: 400 mg Menthol (Cough Drop (Sugar Free) Amy 24 Amy/1 Box) 1 amy BUCCAL Q6H PRN PRN Reason: Sore Throat Stop: 10/19/22 12:06 Last Admin: 09/19/22 12:33 Dose: 1 amy Metoprolol Succinate (Metoprolol Succ 25mg Ext Rel Tab) 25 mg PO [facility] Stop: 10/23/22 08:59 Last Admin: 09/24/22 08:00 Dose: 25 mg Miconazole Nitrate (Miconazole Nitrate Powder 85 Gm) 1 appln EXT BID PRN PRN Reason: Affected Skin Folds Stop: 10/20/22 22:23 Last Admin: 09/21/22 08:14 Dose: 1 appln Ondansetron HCl (Ondansetron Inj 2 Mg/Ml 2 Ml Vial) 4 mg IV Q6H PRN PRN Reason: Nausea Stop: 10/16/22 15:39 Pantoprazole Sodium (Pantoprazole 40 Mg Tab) 40 mg PO [facility] Stop: 10/16/22 16:14 Last Admin: 09/24/22 07:57 Dose: 40 mg Potassium Chloride (Potassium Chloride Pwd 20 Meq Pack) 20 meq PO BID [facility] Stop: 10/22/22 11:59 Last Admin: 09/24/22 07:55 Dose: 20 meq Potassium Chloride (Potassium Chloride Crtab 20 Meq Tabcr) 40 meq PO DAILY [facility] Stop: 10/23/22 12:14 Last Admin: 09/24/22 07:55 Dose: 40 meq Sodium Chloride (Sodium Chlor 7% 4 Ml Neb) 4 ml NEB BIDR [facility] Stop: 10/19/22 18:59 Last Admin: 09/24/22 07:20 Dose: 4 ml
--- NOTE | 2022-09-24 11:28 | Discharge Summary ---
Date of Service September 24, 2022 Admission HPI Per Admitting Provider 61yo female, PMHx significant for adrenal insufficiency, alcohol use, COPD presented with EMS with complaints of weakness and hadn't been taking her medications at home for several days and having ongoing diarrhea. Had reported drinking alcohol. BPs systolic in the 70-80s. Hypoxic to 70s, improved on 2L NC. Stated more left than right sided weakness but not more weak on one side. Falls at home States she hasn't taken her medications for about 3 months. Doesn't drink everyday but does report use. Will not elaborate on how much. Last drink Friday. No evidence for DTs at present. Denied any issues when not drinking in the past/ICU admission. Of note, to be on steroids chronically however she notes she hasn't had these for months as well. Has been having diarrhea on/off for several weeks. Sometimes worse than others. Liquid brown, denies any pain. Denies any relation to specific foods or blood in her stool. Smoking about 1-2 cigarettes a day. Previously stated feeling lightheaded/dizzy prior to arrival however she notes since steroids she does not have that sensation at present. Denies any shortness of breath at present, but discussed lung exam/imaging and viral testing. She had her oxygen down below her face, SpO2 to 70s, rebounded to 93% w/ 2L replacement. Denies any chest pain at present or pain to any specific location. Endorses weakness/falls at home. Has some RLE edema worse than the left leg, but no calf tenderness at present. Discussed further testing and treatment. Full code at this time. Of note, left eye w/ slight elargement compared to the right but denied any visual symptoms/changes at present. Unclear if chronic finding. CT head negative ER Course: Given 2L IVF, stopped 3rd liter as did not seem overly dehydrated after first 2L and on labs. Noted lactic drawn AFTER first liter provided. CT head negative. CXR negative however tree in bud opacities in base of CTAP. CRAP w/ diarrheal illness/gastroenteritis. No obstruction. Cholelithiasis. Few patchy airspace opacities within lung bases w/ tree-in-bud nodular opaticites. partial opacification distal bronchi. ?aspiration. Old rib fractures. Mild left bladder wall thickening. There is sclerosis and moderate loss of height within the T12 vertebral body which favors a subacute to chronic fracture. Mild paravertebral fat stranding/edema is noted at this level. Focal central lucency at the T12 vertebral body which measures 11 mm which is likely due to the nonunited fracture. A pathologic fracture in the setting of an underlying lesion or infection is considered less likely but not entirely excluded. UA w/ 2+ ketones. CBC w/ leukopenia c/w viral process. Na 118. K 3.2. BUN/Cr 3/.27. Mag 1.4 Admission Exam Per Admitting Provider General: chronically ill appearing female sitting in bed, requesting for bed to be elevated, chronic cough, raspy voice, NAD alert to person, stated year 2022, in [employer] HEENT: head normocephalic, ?L eye pupil slightly large but reactive, EOMI, trachea midline Resp: diffuse rales/wheezing bilaterally, crackles in the base, no tachypnea, nasal cannula below face upon entry with SpO2 in 70s, improved to 93-95% on 2L with good waveform CV: regular rate/rhythm, no significant m/r, bilateral edema noted with R>L swelling, no erythema or calf tenderness but pulses slightly diminished more on the right GI: +BS, slightly distended, : no allen MSK/Neuro: moves all extremities, no focal deficit, follows commands, strength equal bilaterally Psych: alert to person/place/year Principal Diagnosis Adrenal insufficiency Acute hyponatremia NSVT Discharge Exam CONSTITUTIONAL: thin, appears malnourished, NAD EYES: normal conjunctivae, no scleral icterus ENT: external ear and nose normal, poor dentition NECK: trachea midline RESPIRATORY: Conducted upper airway sounds. No crackles, rales or wheezes, normal respiratory effort CARDIOVASCULAR: regular rate and rhythm, S1 and 2 heard without murmurs, gallops or rubs, no JVD, no peripheral edema CHEST: inspection of chest was normal GASTROINTESTINAL: soft, nontender, no guarding MUSCULOSKELETAL: generalized weakness, cannot sit up in bed independently, head is normocephalic and atraumatic SKIN: warm and dry NEUROLOGIC: CN 2-12 grossly intact, no sensory deficit, normal cognition, normal speech, no tremor PSYCHIATRIC: alert cooperative and answering questions appropriately. Discharge Data Allergies Allergy/AdvReac Type Severity Reaction Status Date / Time Penicillins Allergy Intermediate Rash Verified 10/23/21 18:43 Consultations 09/16/22 12:06 ED Decision to Admit Stat 09/23/22 08:14 Consult Cardiology Routine Ordered Studies 09/16/22 09:39 CT abd pelvis wo con Stat CT head/brain wo con Stat 09/16/22 12:48 US venous doppler LE BI Stat Hospital Course (1) Adrenal insufficiency: h/o this per records. Per records she takes hydrocortisone 20 mg every morning and 10 mg nightly. Patient received extra stress dose steroid earlier in the hospitalization. At discharge, change back to hydrocortisone 20 mg a.m. and 10 mg in afternoon. Patient will need to follow-up with PCP and obtain referral for endocrinology for outpatient work-up for adrenal insufficiency. (2) Acute hyponatremia: Likely related to poor oral intake, adrenal insufficiency Sodium on admission 118; Patient was treated with fluid restriction. Also started on hydrocortisone. Labs reviewed today; improved to 131 Continue fluid restriction of 1500 mL in rehab. Continue on hydrocortisone for adrenal insufficiency. (3) Weakness: Multifactorial likely secondary to possible adrenal crisis in setting of infection. Cont with hydrocortisone use and supportive care. Patient going to rehab. (4) Protein calorie malnutrition: Longstanding protein calorie malnutrition that is multifactorial including poor PO intake in setting of poor PO intake and heavy alcohol use. Consult metal dresser. Continue boost at rehab. (5) Diarrhea: (6) Gastroenteritis: CT abdomen pelvis suggest gastroenteritis. Cont to monitor electrolytes and replace as needed. cont supportive care. No symptoms of diarrhea presently. (7) Aspiration pneumonia: known substance abuse history with poor health generally puts her at risk for aspiration. A few patchy airspace opacities in the lung bases suggestive of possible pneumonia secondary to aspiration. Completed 5-day course of ceftriaxone and Flagyl. Swallow evaluation done; recommend to continue same diet. Also placed on airway clearance therapy. Patient was in room air at discharge. (8) Infection due to human metapneumovirus (hMPV): supportive care at this time. (9) Alcohol use: This likely contributes to poor nutrition and low sodium. Monitor closely for withdrawal. (10) Smoking: h/o this. Nicoderm patch as needed. (11) Osteoporosis: (12) Rheumatoid arthritis: Limited records available. Patient is unaware of what medications she is using. Per previous notes she is not on DMARDs (13) NSVT (nonsustained ventricular tachycardia): During the hospitalization, patient had 3 episodes of NSVT; 5-15 beats episodes. Patient denies any symptoms. Echocardiogram done on 09/17 shows normal LV systolic function. EF of 55 to 60%. Discussed with cardiology; recommended to replete electrolytes. Cardiology reviewed the EKG which showed new T wave inversion. Repeat echo was done which showed no new wall motion abnormality. Cleared from cardiology perspective to be discharged to rehab. Outpatient stress test Placed on metoprolol 25 mg once daily. Patient did not have any episode of NSVT on telemetry in last 24 hours prior to discharge. Please note the above document was generated using voice recognition software. It may contain grammatical, syntax or spelling errors. Any formal questions or concerns about the content, text or information contained within the body of this dictation should be directly addressed to the provider for clarification Total Time Total Time Spent Total Time Spent (In Minutes): 60 Total Time Includes: Examination of the Patient, Discharge Planning, Medication Reconciliation, Communication With Other Providers and Other Discharge Plan Discharge Items Patient Disposition: Transfer Long-Term Fac Reason For Visit: WEAKNESS Discharge Diagnosis: Adrenal insufficiency: Acute hyponatremia: NSVT (nonsustained ventricular tachycardia): Condition on Discharge: Fair Activity: Resume your previous activity Non-emergency contact: Primary Care Provider Call non-emergency contact if: you have any medication questions and your symptoms worsen Follow-up/Referrals: Darian Lopez [Primary Care Provider] - Diet: Regular Fluids: 1500ml (6 cups) Addtl Attending Provider Instructions: You were admitted to the hospital with low sodium. Please continue fluid restriction of 1500 cc daily. Please continue to take steroids(hydrocortisone 20 mg in the a.m. and 10 mg at 2 PM) for adrenal insufficiency. You need to follow-up with primary care doctor as outpatient and obtain endocrinology referral for long-term management of adrenal insufficiency. During the hospitalization, you were found to have short episode of fast heart rate (nonsustained ventricular tachycardia). Your evaluated by cardiology during the hospitalization. You are prescribed metoprolol 25 mg once daily. Please continue breathing treatment in the rehab. Please continue potassium and magnesium supplement. Pending Studies at Discharge: No Stand-Alone Forms: [facility] [employer] Skilled Items Patient informed of condition?: Yes DNR: No Discharge Level of Care: Skilled Communicable Disease: No Discharge Prognosis: Stable Lines: None Urinary Catheter: No Medications and DC Order Prescriptions: New ipratropium-albuterol 0.5 mg-3 mg(2.5 mg base)/3 mL Solution For Nebulization 3 ml NEB BID Qty: 90 0RF metoprolol succinate 25 mg Tablet Extended Release 24 Hr 25 mg PO QAM Qty: 30 0RF sodium chloride 7 % Solution For Nebulization 4 ml NEB BIDR Qty: 120 0RF magnesium oxide 400 mg (241.3 mg magnesium) Tablet 400 mg PO BID Qty: 60 0RF hydrocortisone [Cortef] 10 mg Tablet 10 mg PO DAILY@1400 Qty: 30 0RF Continued alendronate 70 mg tablet 70 mg PO Q7D Rx Instructions: LAST FILLED 06/16/21 FOR 84 DAYS. thiamine HCl (vitamin B1) 100 mg tablet 100 mg PO DAILY Qty: 30 0RF pantoprazole 20 mg tablet,delayed release (DR/EC) 20 mg PO DAILY Qty: 30 0RF pravastatin 10 mg tablet 10 mg PO DAILY Qty: 30 0RF ferrous sulfate 325 mg (65 mg iron) tablet 325 mg PO BID Qty: 30 0RF folic acid 1 mg tablet 1 mg PO DAILY Qty: 30 0RF hydrocortisone [Cortef] 10 mg Tablet 20 mg PO QAM Qty: 30 0RF fluticasone propionate 50 mcg/actuation spray,suspension 2 spray INTRANASAL DAILY Qty: 16 0RF fluticasone propionate [Flovent HFA] 110 mcg/actuation HFA aerosol inhaler 1 inh INHALATION BID Qty: 12 0RF cholecalciferol (vitamin D3) [Vitamin D3] 50 mcg (2,000 unit) capsule 2,000 mcg PO DAILY Qty: 30 0RF Creon 36,000-114,000- 180,000 unit capsule,delayed release(DR/EC) 1 cap PO DAILY Qty: 30 0RF Changed aspirin [Sherri Chewable Aspirin] 81 mg tablet,chewable 81 mg PO DAILY Qty: 60 0RF potassium chloride 20 mEq tablet extended release 20 meq PO BID Qty: 60 0RF Combivent Respimat 20-100 mcg/actuation mist 1 puff INHALATION BID PRN (Reason: sob) Qty: 4 0RF Discontinued hydrocortisone [Cortef] 10 mg Tablet 10 mg PO DAILY@1500 Qty: 30 0RF Discharge Orders: Discharge Order (Routine); Ordered 09/24/22 Ordered By: Ralph Anthony Admission Data Admit Date/Time: 09/16/22 12:48 Attending Provider: Ralph Anthony Admit Provider: Chele Paez Primary Care Provider: Darian Lopez Other Providers: Sonali Singh ; [place] ; Markel Nicolas Other Interventions: Discharge Summary Assessment (RN) Last Done: 09/24/22 11:15
--- NOTE | 2022-09-24 16:57 | Electrocardiogram Report ---
Test Reason : Blood Pressure : / mmHG Vent. Rate : 079 BPM Atrial Rate : 079 BPM P-R Int : 146 ms QRS Dur : 080 ms QT Int : 406 ms P-R-T Axes : 048 -23 185 degrees QTc Int : 465 ms Normal sinus rhythm Anteroseptal infarct (cited on or before 23-OCT-2019) T wave abnormality, consider inferolateral ischemia Abnormal ECG When compared with ECG of 16-SEP-2022 09:42, Premature atrial complexes are no longer Present T wave inversion now evident in Inferior leads T wave inversion now evident in Anterolateral leads Confirmed by Rudloph Lima ([id number]) on 09/24/2022 4:56:23 PM Referred By: REFERRED SELF Confirmed By:Rudolph Lima
--- NOTE | 2022-09-24 20:03 | Electrocardiogram Report ---
Test Reason : Blood Pressure : / mmHG Vent. Rate : 069 BPM Atrial Rate : 069 BPM P-R Int : 146 ms QRS Dur : 070 ms QT Int : 410 ms P-R-T Axes : 035 -13 228 degrees QTc Int : 439 ms Normal sinus rhythm Septal infarct (cited on or before 23-OCT-2019) Abnormal ECG When compared with ECG of 23-SEP-2022 09:57, (unconfirmed) T wave inversion less evident in Lateral leads Confirmed by Rudolph Lima ([id number]) on 09/24/2022 8:03:42 PM Referred By: REFERRED SELF Confirmed By:Rudolph Lima
== END 2022-09-24 13:31 | DRG 177 ==
LOC: ED 09:12 → SUATTDRO 12:48 → EDINP 12:48 → 2W 20:20